=== PATIENT | female | born 1930 | race Caucasian/White ===

== ENCOUNTER 2018-06-03 14:08 | Day surgery (SDC) | payer OTHER ==
[2018-06-03 15:13] VITALS: PULSE 82; BMI 31.5
[2018-06-03 19:04] VITALS: BP 141/80; TEMP 98.8
== END 2018-06-03 22:17 | disposition home or self-care (01) ==
LOC: FINFUSION 14:08 → FM/S 14:22 → FINFUSION 22:17
PROVIDERS: ATTEND Internal Medicine Geriatric Medicine
PROC: 30233N1 Transfusion of Nonautologous Red Blood Cells into Peripheral Vein, Percutaneous Approach (ICD-10-PCS; principal; 2018-06-03)
DX: D64.9 Anemia, unspecified (principal)
CPT/HCPCS: 36430; 36511; 86850; 86900; 86901; 86922; P9038; P9058

== ENCOUNTER 2018-06-12 06:37 | Inpatient (IN) | payer OTHER ==
[2018-06-12] MEDS ORDERED: ALBUTEROL SO4 2.5/IPRATROPIUM 0.5 INH SOL 3 ML VIAL.NEB. NEB ONE ×5 (06:55→07:49)
[2018-06-12] MEDS ORDERED: FUROSEMIDE 40 MG/4 ML INJECTABLE VIAL IVPUSH ONE (07:15)
--- NOTE | 2018-06-12 07:39 | PDOC ---
History of Present Illness - General Chief Complaint: Shortness of Breath Stated Complaint: SOB Time Seen by Provider: 06/12/18 07:11 History Source: Patient, EMS Exam Limitations: No Limitations - History of Present Illness Initial Comments: 06/12/18 07:44 Francisco 87 YOF h/o CVA, Afib on ASA, HTN, Hypothyroidism, DM2 presenting with acute onset SOB at 5am. a/w clear productive cough last night, shortness of breath and lower leg swelling. h/o smoking x long time. endorses chronic lower extremity swelling, but usually increases in the morning. called EMS this morning, en route mildly hypertensive, placed on supp O2 with relief. no additional treatments. On review of records, prior echo in 2012 with normal systolic function, + elevated RVSP. 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 06/12/18 07:45 Past History - Past Medical History Allergies/Adverse Reactions: Allergies Allergy/AdvReac Type Severity Reaction Status Date / Time No Known Allergies Allergy Verified 06/12/18 06:38 Home Medications: Ambulatory Orders Aspirin 325 mg PO DAILY tablet 09/19/14 Levothyroxine [Synthroid -] 88 mcg PO DAILY 06/03/18 Anemia: No Asthma: No Cancer: No Cardiac Disorders: Yes (A FIB/) CVA: No COPD: No CHF: No Dementia: No Diabetes: Yes GI Disorders: No Disorders: No HTN: Yes Hypercholesterolemia: No Liver Disease: No Seizures: No Thyroid Disease: Yes - Surgical History Abdominal Surgery: No Appendectomy: No Cardiac Surgery: No Cholecystectomy: No Lung Surgery: No Neurologic Surgery: No Orthopedic Surgery: No - Suicide/Smoking/Psychosocial Hx Smoking History: Former smoker Have you smoked in the past 12 months: No Number of Cigarettes Smoked Daily: 0 Information on smoking cessation initiated: No Hx Alcohol Use: No Drug/Substance Use Hx: No Substance Use Type: None Hx Substance Use Treatment: No Review of Systems - Review of Systems Able to Perform ROS?: Yes Comments:: 06/12/18 07:44 GENERAL/CONSTITUTIONAL: No fever or chills. No weakness. no sweats. HEAD, EYES, EARS, NOSE AND THROAT: No change in vision or hearing. No ear pain or discharge. No sore throat or mouth pain. No difficulty swallowing.. No congestion. CARDIOVASCULAR: No chest pain or palpitations, syncope. +peripheral edema RESPIRATORY: +SOB, cough, wheezing. NO hemoptysis. GASTROINTESTINAL No nausea/vomiting. No diarrhea or constipation. No bloody stools. GENITOURINARY: No hematuria, dysuria, frequency, urgency or other changes. MUSCULOSKELETAL: No joint or muscle swelling or pain. No neck or back pain. SKIN: No rash or changes in skin color or lesions. NEUROLOGIC: No headache, vertigo, loss of consciousness, or change in strength/ sensation. ENDOCRINE: No increased thirst. No abnormal weight or appetite change or intolerance to heat/cold. HEMATOLOGIC/LYMPHATIC: +anemia. No easy bruising/bleeding, or history of blood clots. ALLERGIC/IMMUNOLOGIC: No allergies or rash All other systems reviewed and negative, or as documented in HPI. *Physical Exam - Vital Signs Last Vital Signs Temp Pulse Resp BP Pulse Ox 97.8 F 80 24 152/60 99 06/12/18 06:38 06/12/18 06:38 06/12/18 06:38 06/12/18 06:38 06/12/18 06:38 - Physical Exam Comments: 06/12/18 07:45 General: Well appearing, awake and alert, mild respiratory distress HEENT: NCAT, PERRL, EOMI, clear conjunctiva, anicteric, moist mucus membranes, clear oropharynx, no oral lesions.. Airway patent, normal phonation Neck: neck supple, FROM, no JV Lungs: +audible and expiratory wheezing, mild respiratory distress Heart: irregularly irregular, 2+ peripheral pulses throughout, 3+ peripheral edema Abdomen: soft, NTND, no peritoneal signs. Back: nontender, normal inspection and ROM MSK: +bilateral edema, BARRETT x4, ROM intact. No clubbing or cyanosis. normal bulk and tone. No calf tenderness. Neuro: alert, oriented appropriately; no focal neurologic deficits. Skin: warm and well perfused, cap refill <2 sec, pale in color (baseline). 06/12/18 07:45 Procedures - Bedside Ultrasound Remarks: 06/12/18 07:48 POCUS Thoracic exam Fire Watchman: Reema Attending physician: Reema Indications: Dyspnea Views: right anterior thorax, right lateral thorax, right posterior thorax, right base Left anterior thorax, left lateral thorax, left posterior thorax, left base Findings: [x] lung sliding Present bilaterally [x] pleural effusion present: moderate and bilaterally [x] No B lines Impression: Bilateral moderate pleural effusions POCUS Echo exam Fire Watchman: Reema Attending physician: Reema Indication: dyspnea Views: PSLA, PSS, A4, SX, IVC Findings: [x] NO pericardial effusion [x] Normal Ejection fraction on visual estimation [x] RV=LV chamber size [x] IVC size: plethoric (>2cm) with <50% collapsibility Impression: Normal ejection fraction, equal RV=LV chambers but good RV motion; plethoric IVC. ED Treatment Course - LABORATORY CBC & Chemistry Diagram: 06/12/18 07:25 06/12/18 06:50 - RADIOLOGY Radiology Studies Ordered: Category Date Time Status CHEST X-RAY PORTABLE* [RAD] Stat Radiology 06/12/18 06:41 Ordered - Medications Given in the ED: ED Medications Discontinued Medications Generic Name Dose Route Start Last Admin Trade Name Freq PRN Reason Stop Dose Admin Albuterol/Ipratropium 1 amp 06/12/18 06:55 06/12/18 07:02 Duoneb - NEB 06/12/18 06:56 1 amp ONCE ONE Administration Medical Decision Making - Medical Decision Making 06/12/18 07:46 87 YOF with comorbidities as above presenting with acute onset of SOB this morning. DDx SOB: ACS, PE, new onset CHF (systolic/diastolic/mixed), new onset COPD / undiagnosed, pulmonary edema, pleurisy, pneumonia, viral syndrome, acute bronchitis,. Pleural effusions. anemia, electrolyte/metabolic derangements. Plan: CBC, CMP, coags, D Dimer, VBG, CXR, ECG, POCUS echo and thoracic exam, Lasix, Duonebs and admit. based on clinical appearance and symptoms, suspecting PE, new onset CHF/ diastolic heart failure with normal EF, bronchitis/pneumonia, and new pleural effusions. will diureses, treat the wheeze with duonebs, but perhaps cardiac wheeze. pending dimer, if positive, CTA to r/o PE with elevated RVSP previously and equal chamber size. warrants admit, follows with Dr. Painting. 06/12/18 07:51 06/12/18 07:55 *DC/Admit/Observation/Transfer Diagnosis at time of Disposition: Pleural effusion, Respiratory distress - Discharge Dispostion Condition at time of disposition: Stable Decision to Admit order: Yes - Referrals Referrals: Everardo Painting MD [Primary Care Provider] - - Patient Instructions - Post Discharge Activity
[2018-06-12] MEDS ORDERED: FUROSEMIDE 40 MG/4 ML INJECTABLE VIAL ONE (07:49)
[2018-06-12 08:16] LABS: VENOUS PC02 52.8 mmHg (38-52); VENOUS PH 7.3 (7.32-7.42); VENOUS PO2 40.6 mmHg (28-48)
[2018-06-12 08:35] LABS: INR 1.27 (0.82-1.09); PROTHROMBIN TIME (PATIENT) 14.2 SEC (10.2-13.0)
[2018-06-12 08:35] LABS: HEMATOCRIT 24.8 % (32.4-45.2); HEMOGLOBIN 7.5 GM/dL (10.7-15.3); MCH 20.4 pg (25.7-33.7); MCHC 30.4 g/dl (32.0-36.0); PLATELET COUNT 285 K/MM3 (134-434); RDW 23.8 % (11.6-15.6); WHITE BLOOD COUNT 4.3 K/mm3 (4.0-10.0)
[2018-06-12 08:55] LABS: N-TERMINAL BNP 291.53 pg/ml (5-450)
[2018-06-12 08:57] LABS: ANION GAP 8 (8-16); BLOOD UREA NITROGEN 13 mg/dL (7-18); CALCIUM 8.5 mg/dL (8.5-10.1); CHLORIDE 108 mmol/L (98-107); CO2 28 mmol/L (21-32); CREATININE 0.5 mg/dL (0.55-1.02); GLUCOSE,RANDOM 152 mg/dL (74-106); POTASSIUM 4.1 mmol/L (3.5-5.1); SGOT/AST 19 U/L (15-37); SGPT/ALT 18 U/L (12-78); SODIUM 144 mmol/L (136-145); TOT PROT 6.6 g/dl (6.4-8.2)
[2018-06-12 08:58] LABS: ALK PHOS 101 U/L (45-117); BILIRUBIN,TOTAL 0.9 mg/dL (0.2-1.0)
--- NOTE | 2018-06-12 10:43 | HP ---
CHIEF COMPLAINT:shortness of breath and fatigue PCP: Dr. Painting Front End Drupal Developer: Dr Spicer HISTORY OF PRESENT ILLNESS: patient is a 87-year-old female with a past medical history of A. fib (no AC), CVA, breast cancer,hypothyroidism, iron deficiency anemia, and DM. Son (Asif) at bedside, reports ongoing weakness and shortness of breath for the past several months. The patient was evaluated by her primary care physician Dr. Painting on 06/01/2018, patient received 1 unit of packed red blood cells through the infusion center. Of note, patient and son both report she stopped taking her levothyroxine and Synthroid was restarted last week. Patient reports feeling increasingly more dyspneic within the past 24 hours with generalized weakness. Patient denies any chest pain or dizziness. ER course was notable for: (1)CTA of chest, pulmonary vascular congestion with cardiomegaly,no discrete pulmonary embolus, moderate to large right sided and small to moderate left- sided pleural effusion, with associated 5 basilar compressive atelectasis. (2)hemoglobin 7.5 (3)EKG, A. 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 Smoking:none Alcohol:none Drugs:none Family History: noncontributory to this admission Allergies No Known Allergies Allergy (Verified 06/12/18 06:38) HOME MEDICATIONS: Home Medications Medication Instructions Recorded Aspirin 325 mg PO DAILY tablet 09/19/14 Levothyroxine [Synthroid -] 88 mcg PO DAILY 06/03/18 REVIEW OF SYSTEMS CONSTITUTIONAL: Absent: fever, chills, diaphoresis, generalized weakness, malaise, loss of appetite, weight change HEENT: Absent: rhinorrhea, nasal congestion, throat pain, throat swelling, difficulty swallowing, mouth swelling, ear pain, eye pain, visual changes CARDIOVASCULAR: present:peripheral edema Absent: chest pain, syncope, palpitations, irregular heart rate, lightheadedness RESPIRATORY: present;shortness of breath, dyspnea with exertion, orthopnea, wheezing Absent: cough, stridor, hemoptysis GASTROINTESTINAL: Absent: abdominal pain, abdominal distension, nausea, vomiting, diarrhea, constipation, melena, hematochezia GENITOURINARY: Absent: dysuria, frequency, urgency, hesitancy, hematuria, flank pain, genital pain MUSCULOSKELETAL: Absent: myalgia, arthralgia, joint swelling, back pain, neck pain SKIN: Absent: rash, itching, pallor HEMATOLOGIC/IMMUNOLOGIC: Absent: easy bleeding, easy bruising, lymphadenopathy, frequent infections ENDOCRINE: Absent: unexplained weight gain, unexplained weight loss, heat intolerance, cold intolerance NEUROLOGIC: Absent: headache, focal weakness or paresthesias, dizziness, unsteady gait, seizure, mental status changes, bladder or bowel incontinence PSYCHIATRIC: Absent: anxiety, depression, suicidal or homicidal ideation, hallucinations. PHYSICAL EXAMINATION Vital Signs - 24 hr 06/12/18 06/12/18 06/12/18 06:38 07:15 08:48 Temperature 97.8 F Pulse Rate 80 77 Pulse Rate [ 79 Left] Respiratory 24 18 Rate Blood Pressure 152/60 Blood Pressure 136/57 [Right Arm] O2 Sat by Pulse 99 100 96 Oximetry (%) 06/12/18 10:00 Temperature Pulse Rate Pulse Rate [ 75 Left] Respiratory 18 Rate Blood Pressure Blood Pressure 112/52 [Right Arm] O2 Sat by Pulse 98 Oximetry (%) GENERAL: Awake, alert, and fully oriented, in no acute distress. HEAD: Normal with no signs of trauma. EYES: Pupils equal, round and reactive to light, extraocular movements intact, sclera anicteric, conjunctiva clear. No lid lag. EARS, NOSE, THROAT: Ears normal, nares patent, oropharynx clear without exudates. Moist mucous membranes. NECK: Normal range of motion, supple without lymphadenopathy, JVD, or masses. LUNGS: Breath sounds equal, course rhonchi to apexes, slight wheeze with crackles to bilateral bases, No accessory muscle use. HEART: irregular rate and rhythm, normal S1 and S2, 3/6 systolic murmur, no rub or gallop. ABDOMEN: Soft, nontender, not distended, normoactive bowel sounds, no guarding, no rebound, no masses. No hepatomegaly or splenomegaly. MUSCULOSKELETAL: Normal range of motion at all joints. No bony deformities or tenderness. No CVA tenderness. UPPER EXTREMITIES: 2+ pulses, warm, well-perfused. No cyanosis. No clubbing. No peripheral edema. LOWER EXTREMITIES: 2+ pulses, warm, well-perfused. No calf tenderness. + 3 bilateral pitting edema to LE extremity NEUROLOGICAL: Cranial nerves II-XII intact. Normal speech. Normal gait. PSYCHIATRIC: Cooperative. Good eye contact. Appropriate mood and affect. SKIN: Warm, dry, normal turgor, no rashes or lesions noted, normal capillary refill. Laboratory Results - last 24 hr 06/12/18 06/12/18 06/12/18 06:50 07:25 07:47 WBC 4.3 RBC 3.70 Hgb 7.5 L Hct 24.8 L D MCV 67.0 L MCH 20.4 L D MCHC 30.4 L RDW 23.8 H Plt Count 285 D MPV 9.0 Absolute Neuts (auto) 2.8 Neutrophils % No Result Required. Lymphocytes % No Result Required. Nucleated RBC % 0 PT with INR INR PTT (Actin FS) D-Dimer VBG pH 7.30 L POC VBG pCO2 52.8 H POC VBG pO2 40.6 Mixed VBG HCO3 27.2 H Sodium 144 Potassium 4.1 Chloride 108 H Carbon Dioxide 28 Anion Gap 8 BUN 13 Creatinine 0.5 L Creat Clearance w eGFR > 60 Random Glucose 152 H Calcium 8.5 Total Bilirubin 0.9 AST 19 ALT 18 Alkaline Phosphatase 101 Troponin I B-Natriuretic Peptide Total Protein 6.6 Albumin 3.0 L TSH 06/12/18 06/12/18 06/12/18 07:47 07:47 07:47 WBC RBC Hgb Hct MCV MCH MCHC RDW Plt Count MPV Absolute Neuts (auto) Neutrophils % Lymphocytes % Nucleated RBC % PT with INR INR PTT (Actin FS) D-Dimer 805 H VBG pH POC VBG pCO2 POC VBG pO2 Mixed VBG HCO3 Sodium Potassium Chloride Carbon Dioxide Anion Gap BUN Creatinine Creat Clearance w eGFR Random Glucose Calcium Total Bilirubin AST ALT Alkaline Phosphatase Troponin I < 0.02 B-Natriuretic Peptide 291.53 Cancelled Total Protein Albumin TSH 44.30 H Cancelled 06/12/18 06/12/18 06/12/18 07:47 07:47 07:47 WBC RBC Hgb Hct MCV MCH MCHC RDW Plt Count MPV Absolute Neuts (auto) Neutrophils % Lymphocytes % Nucleated RBC % PT with INR 14.2 H INR 1.27 H PTT (Actin FS) 28.8 D-Dimer VBG pH POC VBG pCO2 POC VBG pO2 Mixed VBG HCO3 Sodium Potassium Chloride Carbon Dioxide Anion Gap BUN Creatinine Creat Clearance w eGFR Random Glucose Calcium Total Bilirubin AST ALT Alkaline Phosphatase Troponin I Cancelled B-Natriuretic Peptide Total Protein Albumin TSH ASSESSMENT/PLAN: 1) Cardiovascular afib - rate controlled, continues cardiac monitoring, continue atenolol - no AC patient reports she has declined AC in the past weeks. takes full dose aspirin congestive heart failure - cT of chest reviewed, significant pulmonary vascular congestion noted, will start Lasix 40 mg IV twice a day - pending echo - appreciate cardiology input 2) Heme/onc microcytic anemia - Hemoglobin 7.5 last blood transfusion 06/03/2018, pending iron studies - strict monitoring of hemoglobin 3)endo hypothyroidism - continue levothyroxine patient admits to not taking her Synthroid for several months DM - fingersticks achs with regular insulin coverage f/e/n - diabetic diet - replete electrolytes prn ppx - hold chemical ac secondary to anemia - mechanical ac only dispo: pt requires inpatient admission Visit type - Emergency Visit Emergency Visit: Yes ED Registration Date: 06/12/18 Care time: The patient presented to the Emergency Department on the above date and was hospitalized for further evaluation of their emergent condition. - New Patient This patient is new to me today: Yes Date on this admission: 06/13/18 - Critical Care Critical Care patient: No Hospitalist Screening - Colonoscopy Questionnaire Colonoscopy Questionnaire: Colonoscopy Questionnaire - Patient: 50 - 75 years old and never had a screening colonoscopy: No History of colon or rectal polyps, or CA: No History of IBD, Crohn's disease or UC: No History of abdominal radiation therapy as a child: No - Relative: 1 with colon or rectal CA, or polyps at age 60 or younger: No Colon or rectal CA diagnosed at age 45 or younger: No Multiple relatives with colon or rectal CA: No - Outcome: Screening Result: Negative Screen
[2018-06-12] MEDS: ATENOLOL 50 MG TABLET (FP) PO SCH ×2 (11:34→21:09)
[2018-06-12 12:26] LABS: PLATELET ESTIMATE ADEQUATE; ROULEAU 1+
[2018-06-12 12:27] LABS: ANISOCYTOSIS 2+
[2018-06-12] MEDS ORDERED: ALBUTEROL SO4 2.5/IPRATROPIUM 0.5 INH SOL 3 ML VIAL.NEB. NEB PRN (12:42)
[2018-06-12] MEDS: MINERAL OIL/PETROLAT/WATER TOPICAL CREAM 454 GM JAR TP SCH ×2 (14:00→21:08)
[2018-06-12] MEDS: FUROSEMIDE 40 MG/4 ML INJECTABLE VIAL IVPUSH SCH (14:00)
[2018-06-12] MEDS: FAMOTIDINE 20 MG TABLET PO SCH ×2 (14:00→21:05)
--- NOTE | 2018-06-12 15:29 | ECHO ---
Name: JEN THOMASON Study Date: 06/12/2018 01:46 PM Age: 87 yrs Reason For Study: DYSPNEA UPON EXERTION Height: 62 in Weight: 157 lb BSA IVSd 1.3cm Ao root diam2.8cm LVIDd 3.9cm LA dimension 3.7cm LVIDs 2.8cm LVPWd 1.3cm EDV(Ozzy) 64.8ml ESV(Ozzy) 28.8ml MV E max kyree 142.2cm/sec MR max kyree 395. 7cm/sec MR max PG 62.6 mmHg PI end-d vel73.3cm/sec
[2018-06-12] MEDS ORDERED: INSULIN (NOVOLOG) ASPART 100 UNITS/ML 10ML VIAL ONE (17:36)
[2018-06-12] MEDS: INSULIN SLIDING SCALE (NOVOLOG) 1 VIAL SQ SCH ×2 (17:38→21:25)
--- NOTE | 2018-06-12 20:57 | CON.CARD ---
Consult Consult Specialty:: Carddiology consult - coverage dr. Ruvalcaba Reason for Consultation:: chf - History of Present Illness History of Present Illness: patient is a 87-year-old female with a past medical history of A. fib (no AC), CVA, breast cancer,hypothyroidism, iron deficiency anemia, and DM. Son (Asif) at bedside, reports ongoing weakness and shortness of breath for the past several months. The patient was evaluated by her primary care physician Dr. Painting on 06/01/2018, patient received 1 unit of packed red blood cells through the infusion center. Of note, patient and son both report she stopped taking her levothyroxine and Synthroid was restarted last week. Patient reports feeling increasingly more dyspneic within the past 24 hours with generalized weakness. Patient denies any chest pain or dizziness. ER course was notable for: (1)CTA of chest, pulmonary vascular congestion with cardiomegaly,no discrete pulmonary embolus, moderate to large right sided and small to moderate left- sided pleural effusion, with associated 5 basilar compressive atelectasis. (2)hemoglobin 7.5 (3)EKG, A. fib, nonspecific ST and t wave abnormality - History Source History Provided By: Patient, Medical Record - Past Medical History Cardio/Vascular: Yes: AFIB, CHF, HTN Endocrine: Yes: Diabetes Mellitus, Hypothyroidism - Alcohol/Substance Use Hx Alcohol Use: No - Smoking History Smoking history: Former smoker Have you smoked in the past 12 months: No Aproximately how many cigarettes per day: 0 If you are a former smoker, when did you quit?: 40 YEARS AGO Home Medications - Allergies Allergies/Adverse Reactions: Allergies Allergy/AdvReac Type Severity Reaction Status Date / Time No Known Allergies Allergy Verified 06/12/18 06:38 - Home Medications Home Medications: Ambulatory Orders Aspirin 325 mg PO DAILY tablet 09/19/14 Levothyroxine [Synthroid -] 88 mcg PO DAILY 06/03/18 Review of Systems - Review of Systems Constitutional: reports: Weakness Eyes: reports: No Symptoms HENT: reports: No Symptoms Neck: reports: No Symptoms Cardiovascular: reports: Edema, Shortness of Breath Gastrointestinal: reports: No Symptoms Genitourinary: reports: No Symptoms Breasts: reports: No Symptoms Reported Musculoskeletal: reports: No Symptoms Integumentary: reports: No Symptoms Neurological: reports: No Symptoms Endocrine: reports: No Symptoms Hematology/Lymphatic: reports: No Symptoms Psychiatric: reports: No Symptoms Vital Signs: Vital Signs Temperature 97.9 F 06/12/18 18:35 Pulse Rate 55 L 06/12/18 18:35 Respiratory Rate 20 06/12/18 18:35 Blood Pressure 88/36 06/12/18 18:35 O2 Sat by Pulse Oximetry (%) 100 06/12/18 13:18 Constitutional: Yes: Well Nourished, No Distress, Calm Eyes: Yes: WNL, Conjunctiva Clear, EOM Intact HENT: Yes: WNL, Atraumatic, Normocephalic Neck: Yes: WNL, Supple, Trachea Midline Respiratory: Yes: Diminished, Dullness Gastrointestinal: Yes: WNL, Normal Bowel Sounds Renal/: Yes: WNL Cardiovascular: Yes: Pulse Irregular JVD: Yes Heart Sounds: Yes: S1, S2 Murmur: Yes: Systolic Murmur Musculoskeletal: Yes: WNL Extremities: Yes: WNL Edema: Yes Edema: LLE: 3+, RLE: 3+ Integumentary: Yes: WNL Neurological: Yes: WNL, Alert, Oriented ...Motor Strength: WNL Psychiatric: Yes: WNL, Alert, Oriented - Other Data Labs, Other Data: CBC, BMP 06/12/18 07:25 06/12/18 06:50 INR, PTT INR 1.27 (0.82-1.09) H 06/12/18 07:47 Troponin, BNP 06/12/18 06/12/18 06/12/18 07:47 07:47 07:47 Troponin I < 0.02 Cancelled B-Natriuretic Peptide 291.53 Cancelled Troponin, BNP 06/12/18 06/12/18 06/12/18 07:47 07:47 07:47 Troponin I < 0.02 Cancelled B-Natriuretic Peptide 291.53 Cancelled Imaging - Results Chest X-ray: Image Reviewed (b pleural effusion) EKG: Image Reviewed (af rep abn) Problem List - Problems (1) Pleural effusion Code(s): J90 - PLEURAL EFFUSION, NOT ELSEWHERE CLASSIFIED Assessment/Plan chf diastolic acute decompensated dm af hypothyroidism pleural effusion anemia plan iv lasix rater controll -restart home meds consider AC anemia w/u pleural efussion w/u r/o malignancy coverage for dr. Ruvalcaba
[2018-06-13] MEDS: FUROSEMIDE 40 MG/4 ML INJECTABLE VIAL IVPUSH SCH ×2 (06:30→14:49)
[2018-06-13] MEDS: INSULIN SLIDING SCALE (NOVOLOG) 1 VIAL SQ SCH ×4 (06:34→22:24)
[2018-06-13] MEDS: LEVOTHYROXINE NA 88 MCG TABLET (FP) PO SCH (06:34)
--- NOTE | 2018-06-13 08:03 | PN ---
Physical Exam: SUBJECTIVE: Patient seen and examined, reports feeling tired with shortness of breath and decreased appetite OBJECTIVE: Vital Signs Period Temp Pulse Resp BP Sys/De La O Pulse Ox Last 24 Hr 97.3 F-98.3 F 45-90 18-20 87-136/34-57 95-100 GENERAL: The patient is awake, alert, and fully oriented, in no acute distress. HEAD: Normal with no signs of trauma. EYES: PERRL, extraocular movements intact, sclera anicteric, conjunctiva clear. No ptosis. ENT: Ears normal, nares patent, oropharynx clear without exudates, moist mucous membranes. NECK: Trachea midline, full range of motion, supple. LUNGS: Breath sounds equal, clear to auscultation bilaterally to apexes, crackles to bases, no accessory muscle use. HEART: irregular rate and rhythm, S1, S2 without murmur, rub or gallop. ABDOMEN: Soft, nontender, nondistended, normoactive bowel sounds, no guarding, no rebound, no hepatosplenomegaly, no masses. EXTREMITIES: 2+ pulses, warm, well-perfused, +2 pitting edema bilaterally NEUROLOGICAL: Cranial nerves II through XII grossly intact. Normal speech, gait not observed. PSYCH: Normal mood, normal affect. SKIN: Warm, dry, normal turgor, no rashes or lesions noted Laboratory Results - last 24 hr CBC WBC 5.0 K/mm3 (4.0-10.8) 06/13/18 08:00 RBC 3.46 M/mm3 (3.60-5.2) L 06/13/18 08:00 Hgb 7.0 GM/dl (10.7-15.3) L 06/13/18 08:00 Hct 22.9 % (32.4-45.2) L 06/13/18 08:00 MCV 66.2 fl (80-96) L 06/13/18 08:00 MCH 20.1 pg (25.7-33.7) L 06/13/18 08:00 MCHC 30.4 g/dl (32.0-36.0) L 06/13/18 08:00 RDW 22.2 % (11.6-15.6) H D 06/13/18 08:00 Plt Count 279 K/MM3 (134-434) 06/13/18 08:00 MPV 8.3 fl (7.5-11.1) 06/13/18 08:00 Absolute Neuts (auto) 3.3 # 06/13/18 08:00 Total Counted 100 06/12/18 07:25 Neutrophils % 64.0 % (42.8-82.8) 06/13/18 08:00 Neutrophils % (Manual) 73.0 % (42.8-82.8) 06/12/18 07:25 Lymphocytes % 15.1 % (8-40) 06/13/18 08:00 Lymphocytes % (Manual) 16.0 % (8-40) 06/12/18 07:25 Monocytes % 14.9 % (3.8-10.2) H 06/13/18 08:00 Monocytes % (Manual) 9 % (3.8-10.2) 06/12/18 07:25 Eosinophils % 5.0 % (0-4.5) H 06/13/18 08:00 Eosinophils % (Manual) 1.0 % (0-4.5) 06/12/18 07:25 Basophils % 1.0 % (0-2.0) 06/13/18 08:00 Nucleated RBC % 0 % (0-0) 06/12/18 07:25 Hypochromia 2+ 06/12/18 07:25 Platelet Estimate Adequate 06/12/18 07:25 Anisocytosis 2+ 06/12/18 07:25 Rouleaux 1+ 06/12/18 07:25 Retic Count 1.21 % (0.5-1.5) 06/12/18 07:47 CMP Sodium 136 mmol/L (136-145) 06/13/18 08:00 Potassium 3.5 mmol/L (3.5-5.1) 06/13/18 08:00 Chloride 104 mmol/L (98-107) 06/13/18 08:00 Carbon Dioxide 29 mmol/L (22-28) H 06/13/18 08:00 Anion Gap 3 (8-16) L 06/13/18 08:00 BUN 14 mg/dl (7-18) 06/13/18 08:00 Creatinine 0.6 mg/dl (0.6-1.3) 06/13/18 08:00 Creat Clearance w eGFR > 60 (>60) 06/13/18 08:00 POC Glucometer 159 UNITS (80-120) 06/13/18 11:41 Random Glucose 104 mg/dl (74-106) D 06/13/18 08:00 Calcium 7.8 mg/dl (8.4-10.2) L 06/13/18 08:00 Phosphorus 4.0 mg/dl (2.5-4.6) 06/13/18 08:00 Magnesium 1.7 mg/dL (1.8-2.4) L 06/13/18 08:00 Iron 14 ug/dL (27-139) L 06/12/18 07:37 TIBC 366 ug/dL (250-450) 06/12/18 07:37 Iron Saturation 4 % (15-55) L 06/12/18 07:37 Total Bilirubin 0.9 mg/dL (0.2-1.0) 06/12/18 06:50 AST 19 U/L (15-37) 06/12/18 06:50 ALT 18 U/L (12-78) 06/12/18 06:50 Alkaline Phosphatase 101 U/L (45-117) 06/12/18 06:50 Troponin I < 0.02 ng/ml (0.00-0.05) 06/12/18 07:47 B-Natriuretic Peptide 291.53 pg/ml (5-450) 06/12/18 07:47 Total Protein 6.6 g/dl (6.4-8.2) 06/12/18 06:50 Albumin 3.0 g/dl (3.4-5.0) L 06/12/18 06:50 TSH 44.30 uIU/ml (0.358-3.74) H 06/12/18 07:47 Active Medications Generic Name Dose Route Start Last Admin Trade Name Freq PRN Reason Stop Dose Admin Albuterol/Ipratropium 1 amp 06/12/18 12:42 Duoneb - NEB Q6H PRN SHORTNESS OF BREATH Atenolol 50 mg 06/13/18 10:00 Tenormin - PO DAILY REED Diltiazem HCl 180 mg 06/12/18 21:43 Cardizem Cd - PO DAILY REED Famotidine 20 mg 06/12/18 13:15 06/12/18 21:05 Pepcid - PO 20 mg BID REED Administration Furosemide 40 mg 06/12/18 14:00 06/13/18 06:30 Lasix Injection - IVPUSH Not Given BID@0600,1400 [facility] Insulin Aspart 1 vial 06/12/18 16:30 06/13/18 06:34 Novolog Vial Sliding Scale - SQ Not Given ACHS [facility] Protocol Levothyroxine Sodium 88 mcg 06/13/18 07:00 06/13/18 06:34 Synthroid - PO 88 mcg DAILY@0700 REED Administration Multi-Ingredient Lotion 1 applic 06/12/18 13:15 06/12/18 21:08 Eucerin (Large Jar) - TP 1 applic BID REED Administration ASSESSMENT/PLAN: 1) Cardiovascular afib - rate controlled, continues cardiac monitoring, continue atenolol n Cardizem - no AC patient reports she has declined AC in the past, will defer AC secondary to symptomatic anemia. diastolic congestive heart failure - cT of chest reviewed, significant pulmonary vascular congestion noted, will start Lasix 40 mg IV twice a day - echo LV WNL pleural effusion severe TR RVSP elevated PVR - cardiology consulted and following 2) Heme/onc microcytic anemia - Hemoglobin 7.0, patient asymptomatic will order 2 units of packed red blood cells with Lasix, pending iron studies - strict monitoring of hemoglobin 3)endo hypothyroidism - continue levothyroxine patient admits to not taking her Synthroid for several months DM - fingersticks achs with regular insulin coverage f/e/n - diabetic diet - replete electrolytes prn ppx - hold chemical ac secondary to anemia - mechanical ac only dispo: pt requires inpatient admission Visit type - Emergency Visit Emergency Visit: Yes ED Registration Date: 06/12/18 Care time: The patient presented to the Emergency Department on the above date and was hospitalized for further evaluation of their emergent condition. - New Patient This patient is new to me today: No - Critical Care Critical Care patient: No - Discharge Referral Referred to [facility] Med [facility].C[facility] No
[2018-06-13 08:09] LABS: SERUM IRON SATURATION 4 % (15-55); TOTAL IRON BINDING CAPACITY 366 ug/dL (250-450); UIBC 352 ug/dL (118-369)
[2018-06-13 08:22] LABS: ANION GAP 3 (8-16); BLOOD UREA NITROGEN 14 mg/dl (7-18); CALCIUM 7.8 mg/dl (8.4-10.2); CHLORIDE 104 mmol/L (98-107); CO2 29 mmol/L (22-28); CREATININE 0.6 mg/dl (0.6-1.3); GLUCOSE,RANDOM 104 mg/dl (74-106); MAGNESIUM 1.7 mg/dL (1.8-2.4); POTASSIUM 3.5 mmol/L (3.5-5.1); SODIUM 136 mmol/L (136-145)
[2018-06-13 08:33] LABS: HEMATOCRIT 22.9 % (32.4-45.2); LYMPH % 15.1 % (8-40); MCH 20.1 pg (25.7-33.7); MCHC 30.4 g/dl (32.0-36.0); MEAN CELL VOLUME 66.2 fl (80-96); MEAN PLT VOLUME 8.3 fl (7.5-11.1); MONO % 14.9 % (3.8-10.2); PLATELET COUNT 279 K/MM3 (134-434); RBC 3.46 M/mm3 (3.60-5.2); RDW 22.2 % (11.6-15.6)
[2018-06-13] MEDS ORDERED: MAGNESIUM SULFATE 2 GM in SODIUM CHLORIDE 100 ML IVPB ONE (08:33)
[2018-06-13] MEDS ORDERED: POTASSIUM CHLORIDE TABS 20 MEQ TABLET.ER (FP) PO ONE (09:00)
[2018-06-13] MEDS ORDERED: MAGNESIUM SULFATE IN WATER 2 GM/50 ML IVPB IVPB ONE (09:00)
[2018-06-13] MEDS: MINERAL OIL/PETROLAT/WATER TOPICAL CREAM 454 GM JAR TP SCH ×2 (09:35→22:24)
[2018-06-13] MEDS: FAMOTIDINE 20 MG TABLET PO SCH ×2 (09:35→21:47)
[2018-06-13] MEDS: ATENOLOL 50 MG TABLET (FP) PO SCH (09:35)
[2018-06-13] MEDS ORDERED: INSULIN (NOVOLOG) ASPART 100 UNITS/ML 10ML VIAL ONE ×2 (11:45→16:46)
[2018-06-13 12:51] LABS: ADD RBC MORPHOLOGY YES
--- NOTE | 2018-06-13 13:57 | EKG ---
Test Reason : Blood Pressure : / mmHG Vent. Rate : 079 BPM Atrial Rate : 048 BPM P-R Int : 000 ms QRS Dur : 086 ms QT Int : 402 ms P-R-T Axes : 000 045 056 degrees QTc Int : 460 ms ATRIAL FIBRILLATION NONSPECIFIC ST AND T WAVE ABNORMALITY ABNORMAL ECG Confirmed by Heath Hernandez MD ([id number]) on 06/13/2018 1:56:42 PM Referred By: Confirmed By:Heath Hernandez MD
[2018-06-14] MEDS: FUROSEMIDE 40 MG/4 ML INJECTABLE VIAL IVPUSH SCH ×3 (04:09→14:39)
[2018-06-14] MEDS ORDERED: INSULIN (NOVOLOG) ASPART 100 UNITS/ML 10ML VIAL ONE (06:58)
[2018-06-14] MEDS: LEVOTHYROXINE NA 88 MCG TABLET (FP) PO SCH (06:59)
[2018-06-14] MEDS: INSULIN SLIDING SCALE (NOVOLOG) 1 VIAL SQ SCH ×4 (06:59→21:54)
[2018-06-14] MEDS ORDERED: ACETAMINOPHEN 1000 MG/100 ML VIAL (NON FORMULARY) IVPB ONE (07:48)
[2018-06-14] MEDS ORDERED: PIPERACILLIN/TAZOB 4.5 GM 4.5 GM in DEXTROSE 5%-WATER 100 ML IVPB ONE (07:48)
[2018-06-14] MEDS ORDERED: VANCOMYCIN 1,250 MG in DEXTROSE 5%-WATER - 250 ML IVPB ONE (07:49)
--- NOTE | 2018-06-14 07:54 | ED.PROV ---
Physicial Exam I saw and examined the patient. - Vital Signs Last Vital Signs Temp Pulse Resp BP Pulse Ox 100.9 F H 96 H 22 139/58 93 L 06/14/18 07:50 06/14/18 07:50 06/14/18 07:50 06/14/18 07:50 06/14/18 03:58 - Physical Exam Reason for Response: 06/14/18 07:51 AMS General Appearance: Yes: Mild Distress, Thin HEENT: positive: EOMI, PABLO, Other (moaning, minimally following commands) Neck: positive: Supple Respiratory/Chest: positive: Decreased Breath Sounds, Crackles Cardiovascular: positive: Irregularly Irregular, Irregular, Other (normal rate) Vascular Pulses: Carotid (R): 2+, Carotid (L): 2+, Dorsalis-Pedis (R): 2+, Doralis-Pedis (L): 2+ Gastrointestinal/Abdominal: positive: Soft. negative: Tenderness Musculoskeletal: positive: Other (VITAL x4) Extremity: positive: Normal Capillary Refill Integumentary: positive: Warm, Moist, Other (baseline pallor, but very warm to touch) Neurologic: positive: Other (awake, disoriented, moaning, groans to pain stimulus; VITAL x4, no focal neuro deficits. ) Heart Score/ECG Review - ECG Impressions Comment:: 06/14/18 07:53 Atrial fibrillation with rate 101, normal intervals, no ischemic changes or ST segment derangements Critical Care Time/[facility] Note - Medical Decision Making Note: 06/14/18 07:53 Francisco 87 YOF h/o CVA, Afib on ASA, HTN, Hypothyroidism, DM2, anemia, CHF and new pleural effusions, admitted for pl effusions, diastolic heart failure and anemia eval. called to floor at 740AM for AMS - evaluated pt at bedside, as I had admitted her previously. received her IV lasix overnight, 2 units pRBC for acute on chronic anemia, finished at 1am. made BM - loose nonbloody stools at 4am. exam as documented, nonfocal, m oaning, vital x4, moaning to pain stimuli. fingerstick normal 170s. low suspicion for CVA with global AMS and fever; pulm exam with crackles at bases, no respiratory distress; EKG Afib w/o RVR, nonischemic, nonspecific ST T wave abnormalities as previously also found to febrile 100.9, so most likely source of AMS/delirium. IV tylenol, hold septic fluid boluses due to risk of fluid overload. CT head noncon, CXR, IV vancomycin 1.25g weight based dosing, and zosyn 4.5g IV for empiric coverage of respiratory infection/pna/aspiration. blood cultures, UA and urine cx. informed staff cytotechnologist at bedside, may call ED for further eval or questions or changes in clinical condition when day team arrives. 06/14/18 07:55
--- NOTE | 2018-06-14 08:07 | PN ---
Physical Exam: SUBJECTIVE: Patient seen and examined,contacted by primary RN Douglas, patient lethargic MAXIMUM TEMPERATURE 100.9. OBJECTIVE:patient is a 87-year-old female with a past medical history of A. fib (no AC), CVA, breast cancer,hypothyroidism, iron deficiency anemia, and DM. patient was observed in the emergency department to telemetry for acute congestive heart failure Vital Signs Period Temp Pulse Resp BP Sys/De La O Pulse Ox Last 24 Hr 97.6 F-100.9 F 78-103 17-22 97-162/44-67 93-96 GENERAL: lethargic, opens eyes to name, follows commands, fully oriented. HEAD: Normal with no signs of trauma. EYES: PERRL, extraocular movements intact, sclera anicteric, conjunctiva clear. No ptosis. ENT: Ears normal, nares patent, oropharynx clear without exudates, moist mucous membranes. NECK: Trachea midline, full range of motion, supple. LUNGS: Breath sounds equal, RR 24, coarse rhonchi to apexes bibasalar crackles, + accessory muscle use. HEART: irRegular rate and rhythm, S1, S2 without murmur, rub or gallop. ABDOMEN: Soft, nontender, nondistended, normoactive bowel sounds, no guarding, no rebound, no hepatosplenomegaly, no masses. EXTREMITIES: 2+ pulses, warm, well-perfused, + 1 bilateral pitting edema NEUROLOGICAL: Cranial nerves II through XII grossly intact. Normal speech, gait not observed. PSYCH: Normal mood, normal affect. SKIN: Warm, dry, normal turgor, no rashes or lesions noted Laboratory Results - last 24 hr CBC WBC 6.9 K/mm3 (4.0-10.8) 06/14/18 07:30 RBC 4.14 M/mm3 (3.60-5.2) 06/14/18 07:30 Hgb 9.6 GM/dl (10.7-15.3) L 06/14/18 07:30 Hct 29.4 % (32.4-45.2) L D 06/14/18 07:30 MCV 71.0 fl (80-96) L 06/14/18 07:30 MCH 23.0 pg (25.7-33.7) L 06/14/18 07:30 MCHC 32.5 g/dl (32.0-36.0) 06/14/18 07:30 RDW 24.4 % (11.6-15.6) H 06/14/18 07:30 Plt Count 274 K/MM3 (134-434) 06/14/18 07:30 MPV 9.4 fl (7.5-11.1) 06/14/18 07:30 Absolute Neuts (auto) 5.6 # 06/14/18 07:30 Total Counted 100 06/12/18 07:25 Neutrophils % 79.5 % (42.8-82.8) 06/14/18 07:30 Neutrophils % (Manual) 73.0 % (42.8-82.8) 06/12/18 07:25 Lymphocytes % 7.3 % (8-40) L 06/14/18 07:30 Lymphocytes % (Manual) 16.0 % (8-40) 06/12/18 07:25 Monocytes % 11.9 % (3.8-10.2) H 06/14/18 07:30 Monocytes % (Manual) 9 % (3.8-10.2) 06/12/18 07:25 Eosinophils % 0.6 % (0-4.5) 06/14/18 07:30 Eosinophils % (Manual) 1.0 % (0-4.5) 06/12/18 07:25 Basophils % 0.7 % (0-2.0) 06/14/18 07:30 Nucleated RBC % 0 % (0-0) 06/12/18 07:25 Hypochromia 2+ 06/12/18 07:25 Platelet Estimate Adequate 06/12/18 07:25 Anisocytosis 2+ 06/12/18 07:25 Rouleaux 1+ 06/12/18 07:25 Retic Count 1.21 % (0.5-1.5) 06/12/18 07:47 CMP Sodium 135 mmol/L (136-145) L 06/14/18 07:30 Potassium 3.3 mmol/L (3.5-5.1) L 06/14/18 07:30 Chloride 93 mmol/L (98-107) L D 06/14/18 07:30 Carbon Dioxide 35 mmol/L (22-28) H D 06/14/18 07:30 Anion Gap 7 (8-16) L 06/14/18 07:30 BUN 11 mg/dl (7-18) 06/14/18 07:30 Creatinine < 0.6 mg/dl (0.6-1.3) L 06/14/18 07:30 Creat Clearance w eGFR > 60 (>60) 06/14/18 07:30 POC Glucometer 152 UNITS (80-120) 06/14/18 07:39 Random Glucose 158 mg/dl (74-106) H D 06/14/18 07:30 Lactic Acid 1.9 mmol/L (0.0-2.0) 06/14/18 08:30 Calcium 8.0 mg/dl (8.4-10.2) L 06/14/18 07:30 Phosphorus 3.8 mg/dl (2.5-4.6) 06/14/18 07:30 Magnesium 1.8 mg/dL (1.8-2.4) 06/14/18 07:30 Iron 14 ug/dL (27-139) L 06/13/18 07:37 TIBC 366 ug/dL (250-450) 06/12/18 07:37 Iron Saturation 4 % (15-55) L 06/12/18 07:37 Total Bilirubin 1.6 mg/dl (0.2-1.0) H 06/14/18 07:30 AST 18 U/L (10-42) 06/14/18 07:30 ALT 13 U/L (10-40) 06/14/18 07:30 Alkaline Phosphatase 77 U/L (32-92) 06/14/18 07:30 Troponin I < 0.02 ng/ml (0.00-0.05) 06/12/18 07:47 B-Natriuretic Peptide 291.53 pg/ml (5-450) 06/12/18 07:47 Total Protein 6.0 g/dl (6.4-8.3) L 06/14/18 07:30 Albumin 2.9 g/dl (3.5-5.0) L 06/14/18 07:30 TSH 44.30 uIU/ml (0.358-3.74) H 06/12/18 07:47 Laboratory Tests 06/14/18 10:30 Urine Color Yellow Urine Appearance Clear Urine pH 5.5 Ur Specific [place] <= 1.005 Urine Protein Negative Urine Glucose (UA) Negative Urine Ketones Negative Urine Blood Negative Urine Nitrite Positive Urine Bilirubin Negative Urine Urobilinogen 0.2 Ur Leukocyte Esterase Negative Laboratory Tests 06/14/18 10:21 ABG pH 7.40 ABG pCO2 at Pt Temp 61.0 H* ABG pO2 at Pt Temp 111.0 H ABG HCO3 36.4 H ABG O2 Sat (Measured) 98.2 ABG O2 Content 12.3 L Active Medications Generic Name Dose Route Start Last Admin Trade Name Freq PRN Reason Stop Dose Admin Albuterol/Ipratropium 1 amp 06/12/18 12:42 06/14/18 04:01 Duoneb - NEB 1 amp Q6H PRN Administration SHORTNESS OF BREATH Atenolol 50 mg 06/13/18 10:00 06/13/18 09:35 Tenormin - PO 50 mg DAILY REED Administration Diltiazem HCl 180 mg 06/12/18 21:43 06/13/18 09:35 Cardizem Cd - PO 180 mg DAILY REED Administration Famotidine 20 mg 06/12/18 13:15 06/13/18 21:47 Pepcid - PO 20 mg BID REED Administration Furosemide 40 mg 06/12/18 14:00 06/14/18 06:59 Lasix Injection - IVPUSH Not Given BID@0600,1400 REED Given at 4 AM Piperacillin Sod/Tazobactam 100 mls @ 200 mls/hr 06/14/18 07:48 Sod 4.5 gm/ Dextrose IVPB 06/14/18 08:17 ONCE ONE Protocol Vancomycin HCl 1,250 mg/ 250 mls @ 250 mls/2 hr 06/14/18 07:49 Dextrose IVPB 06/14/18 09:48 ONCE ONE Protocol Insulin Aspart 1 vial 06/12/18 16:30 06/14/18 06:59 Novolog Vial Sliding Scale - SQ 2 units ACHS REED Administration Protocol Levothyroxine Sodium 88 mcg 06/13/18 07:00 06/14/18 06:59 Synthroid - PO 88 mcg DAILY@0700 REED Administration Multi-Ingredient Lotion 1 applic 06/12/18 13:15 06/13/18 22:24 Eucerin (Large Jar) - TP 1 applic BID REED Administration IMAGING cta of chest: no CT evidence of pulmonary embolism, pulmonary vascular congestion with cardiomegaly, bilateral pleural effusion Head CT (June 14 2018): no acute pathology echo LV WNL pleural effusion severe TR RVSP elevated PVR ASSESSMENT/PLAN: 1) Cardiovascular afib - Remains rate controlled on telemetry monitoring, continue atenolol and Cardizem. - no AC patient reports she has declined AC in the past, will defer AC secondary to symptomatic anemia. diastolic congestive heart failure - chest x-ray reviewed worsening of pulmonary vascular congestion likely secondary from 2 units of prbc continue lasix 40mg IV BID, will order an additional 40mg lasix iv x 1 - cardiology consulted and following 2) pulm pleural effusions acute respiratory distress - ABG notable for metabolic alkalosis with secondary respiratory acidosis, will order BiPAP - ct scan of chest, notable for Significant right lower lobe effusion, appreciate pulmonary input, may require thoracentesis 2) Heme/onc microcytic anemia - maybe secondary to lower GI bleed, repeat hemoglobin today after 2 units of prbc, 9.6 strict monitoring iron deficency anemia - iron studies noted start Iron supplements 3)endo hypothyroidism - continue levothyroxine patient admits to not taking her Synthroid for several months DM - fingersticks achs with regular insulin coverage 4)GI positive stool guiac - continue pepicd, appreciate GI input 5) UTI - urinalysis positive nitrates pending urine culture, Zosyn and vancomycin x 1 this AM, start rocephin 1gm iv 6) Neuro Metabolic encephalopathy - Likely secondary to UTI, fall precautions, pending urine and blood cultures. f/e/n - diabetic diet - replete electrolytes prn ppx - hold chemical ac secondary to anemia - mechanical ac only dispo: pt requires inpatient admission Visit type - Emergency Visit Emergency Visit: Yes ED Registration Date: 06/12/18 Care time: The patient presented to the Emergency Department on the above date and was hospitalized for further evaluation of their emergent condition. - New Patient This patient is new to me today: No - Critical Care Critical Care patient: No
[2018-06-14 08:20] LABS: BASO % 0.7 % (0-2.0); EOS % 0.6 % (0-4.5); HEMATOCRIT 29.4 % (32.4-45.2); HEMOGLOBIN 9.6 GM/dl (10.7-15.3); LYMPH % 7.3 % (8-40); MCHC 32.5 g/dl (32.0-36.0); MEAN PLT VOLUME 9.4 fl (7.5-11.1); MONO % 11.9 % (3.8-10.2); NEUT % 79.5 % (42.8-82.8); PLATELET COUNT 274 K/MM3 (134-434); RBC 4.14 M/mm3 (3.60-5.2); RDW 24.4 % (11.6-15.6); WHITE BLOOD COUNT 6.9 K/mm3 (4.0-10.8)
[2018-06-14 09:03] LABS: ALBUMIN 2.9 g/dl (3.5-5.0); ALK PHOS 77 U/L (32-92); ANION GAP 7 (8-16); BILIRUBIN,TOTAL 1.6 mg/dl (0.2-1.0); BLOOD UREA NITROGEN 11 mg/dl (7-18); CHLORIDE 93 mmol/L (98-107); CO2 35 mmol/L (22-28); GLUCOSE,RANDOM 158 mg/dl (74-106); MAGNESIUM 1.8 mg/dL (1.8-2.4); PHOSPHOROUS 3.8 mg/dl (2.5-4.6); POTASSIUM 3.3 mmol/L (3.5-5.1); SGOT/AST 18 U/L (10-42); SGPT/ALT 13 U/L (10-40); SODIUM 135 mmol/L (136-145)
[2018-06-14 09:10] LABS: CREATININE < 0.6 mg/dl (0.6-1.3)
[2018-06-14] MEDS: ALBUTEROL SO4 2.5/IPRATROPIUM 0.5 INH SOL 3 ML VIAL.NEB. NEB SCH ×3 (09:17→18:55)
[2018-06-14] MEDS ORDERED: ONDANSETRON 4 MG/2 ML VIAL IVPB ONE (09:30)
[2018-06-14] MEDS ORDERED: MAGNESIUM 1GM/D5W 100ML - 100 ML IVPB IVPB ONE (09:30)
[2018-06-14] MEDS ORDERED: FUROSEMIDE 40 MG/4 ML INJECTABLE VIAL IVPUSH ONE (10:15)
[2018-06-14] MEDS: MINERAL OIL/PETROLAT/WATER TOPICAL CREAM 454 GM JAR TP SCH ×2 (10:34→21:29)
[2018-06-14 10:41] LABS: PH,URINE 5.5 (4.5-8); URINE APPEARANCE Clear; URINE BILIRUBIN Negative (NEGATIVE); URINE COLOR Yellow; URINE GLUCOSE (UA) Negative (NEGATIVE); URINE KETONE Negative (NEGATIVE); URINE LEUK ESTERASE Negative (NEGATIVE); URINE NITRITE Positive (NEGATIVE); URINE PROTEIN Negative (NEGATIVE); URINE UROBILINOGEN 0.2 (0.2-1.0)
[2018-06-14] MEDS: FAMOTIDINE 20 MG TABLET PO SCH (10:48)
[2018-06-14] MEDS: ATENOLOL 50 MG TABLET (FP) PO SCH (10:48)
[2018-06-14 11:42] LABS: ARTERIAL BLD GAS O2 SATURATION 98.2 % (90-98.9)
[2018-06-14] MEDS: FERROUS SO4 325 MG TABLET (FP) PO SCH ×2 (11:55→21:29)
[2018-06-14] MEDS: LACTOBACILLUS ACIDOPHILUS 1 TABLET PO SCH (11:55)
--- NOTE | 2018-06-14 13:01 | EKG ---
Test Reason : Blood Pressure : / mmHG Vent. Rate : 101 BPM Atrial Rate : 101 BPM P-R Int : 000 ms QRS Dur : 086 ms QT Int : 320 ms P-R-T Axes : 000 047 018 degrees QTc Int : 414 ms ATRIAL FIBRILLATION WITH RAPID VENTRICULAR RESPONSE POSSIBLE ANTERIOR INFARCT , AGE UNDETERMINED ABNORMAL ECG WHEN COMPARED WITH ECG OF 12-JUN-2018 07:17, NO SIGNIFICANT CHANGE WAS FOUND Confirmed by NALLELY DUBOSE MD ([id number]) on 06/14/2018 1:01:34 PM Referred By: MD SHELL Confirmed By:NALLELY DUBOSE MD
--- NOTE | 2018-06-14 13:24 | PN ---
Progress Note, Physician History of Present Illness: Dyspneic earlier in AM, placed on bipap. - Current Medication List Current Medications: Active Medications Albuterol/Ipratropium (Duoneb -) 1 amp NEB QIDR [facility] Last Admin: 06/14/18 12:27 Dose: 1 amp Atenolol (Tenormin -) 50 mg PO DAILY [facility] Last Admin: 06/14/18 10:48 Dose: 50 mg Diltiazem HCl (Cardizem Cd -) 180 mg PO DAILY [facility] Last Admin: 06/14/18 10:48 Dose: Not Given Famotidine (Pepcid -) 20 mg PO BID [facility] Last Admin: 06/14/18 10:48 Dose: 20 mg Ferrous Sulfate (Feosol -) 325 mg PO BID [facility] Last Admin: 06/14/18 11:55 Dose: 325 mg Furosemide (Lasix Injection -) 40 mg IVPUSH BID@0600,1400 [facility] Last Admin: 06/14/18 06:59 Dose: Not Given Ceftriaxone Sodium (Rocephin 1gm Ivpb (Pre-Docked)) 1 gm in 50 mls @ 100 mls/ hr IVPB DAILY [facility]; Protocol Insulin Aspart (Novolog Vial Sliding Scale -) 1 vial SQ ACHS [facility]; Protocol Last Admin: 06/14/18 13:23 Dose: Not Given Lactobacillus Acidophilus (Bacid -) 1 tab PO DAILY [facility] Last Admin: 06/14/18 11:55 Dose: 1 tab Levothyroxine Sodium (Synthroid -) 88 mcg PO DAILY@0700 [facility] Last Admin: 06/14/18 06:59 Dose: 88 mcg Losartan Potassium (Cozaar -) 50 mg PO DAILY [facility] Multi-Ingredient Lotion (Eucerin (Large Jar) -) 1 applic TP BID [facility] Last Admin: 06/14/18 10:34 Dose: 1 applic - Objective Vital Signs: Vital Signs Temperature 98.9 F 06/14/18 12:57 Pulse Rate 86 06/14/18 12:57 Respiratory Rate 18 06/14/18 12:57 Blood Pressure 117/50 06/14/18 12:57 O2 Sat by Pulse Oximetry (%) 98 06/14/18 12:45 Constitutional: Yes: No Distress, Calm, Thin Neck: Yes: Supple Cardiovascular: Yes: Tachycardia, Pulse Irregular, Murmur (2/6 SM) Respiratory: Yes: Diminished, On BiPap Gastrointestinal: Yes: Soft, Hypoactive Bowel Sounds Edema: No Labs: CBC, BMP 06/14/18 07:30 06/14/18 07:30 INR, PTT INR 1.27 (0.82-1.09) H 06/12/18 07:47 - ....Imaging Chest X-ray: Report Reviewed (Increased congestion and pleural effusions) Cat Scan: Report Reviewed (HCT: No acute changes) EKG: Report Reviewed (Afib @ 101) Problem List - Problems (1) Acute on chronic diastolic heart failure Code(s): I50.33 - ACUTE ON CHRONIC DIASTOLIC (CONGESTIVE) HEART FAILURE (2) Atrial fibrillation Code(s): I48.91 - UNSPECIFIED ATRIAL FIBRILLATION Qualifiers: Atrial fibrillation type: persistent Qualified Code(s): I48.1 - Persistent atrial fibrillation (3) Pleural effusion Code(s): J90 - PLEURAL EFFUSION, NOT ELSEWHERE CLASSIFIED (4) Acute hypercapnic respiratory failure Code(s): J96.02 - ACUTE RESPIRATORY FAILURE WITH HYPERCAPNIA (5) Hypothyroidism Code(s): E03.9 - HYPOTHYROIDISM, UNSPECIFIED Qualifiers: Hypothyroidism type: unspecified Qualified Code(s): E03.9 - Hypothyroidism , unspecified Assessment/Plan cta of chest: no CT evidence of pulmonary embolism, pulmonary vascular congestion with cardiomegaly, bilateral pleural effusion Head CT (June 14 2018): no acute pathology echo LV WNL pleural effusion severe TR RVSP elevated PVR 1. Acute hypercapneic respiratory failure referable to 2. Acute on chronic diastolic heart failure with pleural effusions 3. Persistent afib, not on a/c as patient has declined in past 4. Hypothyroidism 5. Anemia P:1. IV diuresis with monitor diuretic response, renal function and electolytes 2. Readdress anticoagulation indications with patient 3. Consider thoracentesis right effusion 4. Continue atenolol 50 qd, Cardizem CD 180 qd, losartan 50 qd 5. BD, empiric abx, bipap and O2 as needed
[2018-06-14 14:18] LABS: ARTERIAL BLD GAS O2 SATURATION 96.9 % (90-98.9); ARTERIAL BLOOD GAS PCO2 56.5 mmHg (35-45); ARTERIAL BLOOD GAS PO2 78.9 mmHg (68-100); ARTERIAL BLOOD GAS pH 7.44 (7.35-7.45)
[2018-06-14 14:20] LABS: ALLENS TEST POSITIVE
[2018-06-14] MEDS ORDERED: KCL 10 MEQ IVPB 10 MEQ/100 ML INFUS.BAG IVPB SCH (14:30)
[2018-06-14] MEDS: PANTOPRAZOLE SODIUM 40 MG VIAL IVPUSH SCH (14:40)
[2018-06-14] MEDS ORDERED: SODIUM BICARBONATE 2.4 MEQ/5 ML SDVIAL IV ONE (14:45)
--- NOTE | 2018-06-14 16:07 | PN ---
Progress Note (short form) - Note Progress Note: ID Consult dictated Possible bibasilar pneumonia/ sepsis secondary to lung source Large R pleural effusion Anemia Pending sepsis workup empiric ceftriaxone/ vancomycin
--- NOTE | 2018-06-14 17:29 | CONS ---
DATE OF CONSULTATION: DATE OF DICTATION: 06/14/2018 INFECTIOUS DISEASE CONSULTATION HISTORY OF PRESENT ILLNESS: The patient is an 87-year-old female who is evaluated for fever. He was admitted to the hospital on June 12, 2018, with worsening shortness of breath and generalized weakness. According to the notes, she has had worsening shortness of breath and weakness for several weeks. She had been seen as an outpatient and was transfused packed red blood cells for anemia. Upon admission, a chest x-ray showed bilateral pleural effusions with atelectasis, possible pneumonia. A CAT scan of the chest was performed. It was negative for pulmonary embolism but showed pulmonary vascular congestion and a large right-sided effusion. Her course has now been complicated by fever of 100.9 and labored breathing and poor responsiveness. Cultures were obtained. She was empirically treated with vancomycin and Zosyn. At the present time, she offers no complaints. She is in no acute respiratory distress. PAST MEDICAL HISTORY: Positive for CVA, atrial fibrillation, breast cancer, hypertension, hypothyroidism, diabetes mellitus. PAST SURGICAL HISTORY: Status post right mastectomy. ALLERGIES: No known allergies. MEDICATION: Include aspirin, Synthroid. SOCIAL HISTORY: Positive history of tobacco use. SYSTEMS REVIEW: Neurologic: Positive for stroke. No seizure activity. Cardiac: Positive for atrial fibrillation. Respiratory: As per HPI. Gastrointestinal: Negative vomiting or diarrhea. Genitourinary: Negative for urinary tract infection. LABORATORY DATA: White count 6.9, hematocrit 29.4, platelet count 274. BUN 11, creatinine 0.6. CAT scan of the chest, no pulmonary embolism, a moderate to large right pleural effusion and small to moderate left pleural effusion with associated bibasilar compressive atelectasis. PHYSICAL EXAMINATION: General: She is awake. She is in no acute respiratory distress. Vital signs: Temperature 100.9, blood pressure 117/49, pulse 98 regular, respirations 18 per minute. HEENT: Sclerae anicteric. Cardiovascular: Heart sounds S1, S2. Respiratory: Lungs clear bilaterally. Abdomen: Soft. No tenderness elicited. No mass, rebound, or rigidity. Extremities: 1+ edema. IMPRESSION: 1. Possible bibasilar pneumonia. 2. Sepsis syndrome. 3. Large right pleural effusion. Await cultures. Empiric antibiotic coverage with ceftriaxone and vancomycin. Hemodynamic support. Transfusion as needed. Prognosis is guarded. Will follow. Thank you for the kind referral. MARCELINA SIMPSON M.D. [id number]
[2018-06-14] MEDS: ONDANSETRON 4 MG/2 ML VIAL IVPUSH PRN (17:42)
[2018-06-15] MEDS: ALBUTEROL SO4 2.5/IPRATROPIUM 0.5 INH SOL 3 ML VIAL.NEB. NEB SCH ×5 (00:52→23:59)
[2018-06-15] MEDS: FUROSEMIDE 40 MG/4 ML INJECTABLE VIAL IVPUSH SCH (06:19)
[2018-06-15] MEDS: LEVOTHYROXINE NA 88 MCG TABLET (FP) PO SCH (06:19)
[2018-06-15] MEDS: INSULIN SLIDING SCALE (NOVOLOG) 1 VIAL SQ SCH ×4 (06:45→21:39)
[2018-06-15 08:28] LABS: BASO % 2.2 % (0-2.0); HEMOGLOBIN 10.1 GM/dl (10.7-15.3); LYMPH % 11.9 % (8-40); MCH 23.5 pg (25.7-33.7); MCHC 32.7 g/dl (32.0-36.0); MEAN CELL VOLUME 71.7 fl (80-96); MONO % 14.5 % (3.8-10.2); NEUT % 66.4 % (42.8-82.8); PLATELET COUNT 275 K/MM3 (134-434); RBC 4.32 M/mm3 (3.60-5.2); WHITE BLOOD COUNT 5.8 K/mm3 (4.0-10.8)
[2018-06-15 08:31] LABS: ANION GAP 8 (8-16); BLOOD UREA NITROGEN 10 mg/dl (7-18); CALCIUM 8.1 mg/dl (8.4-10.2); CHLORIDE 86 mmol/L (98-107); CO2 39 mmol/L (22-28); GLUCOSE,RANDOM 113 mg/dl (74-106); MAGNESIUM 1.8 mg/dL (1.8-2.4); PHOSPHOROUS 3.5 mg/dl (2.5-4.6); SODIUM 133 mmol/L (136-145)
[2018-06-15 08:35] LABS: CREATININE < 0.6 mg/dl (0.6-1.3)
--- NOTE | 2018-06-15 09:00 | PN ---
Physical Exam: SUBJECTIVE: Patient seen and examined, sitting in bedside recliner tolerating diet, reports moist cough, denies any chest pain OBJECTIVE:patient is a 87-year-old female with a past medical history of A. fib (no AC), CVA, breast cancer,hypothyroidism, iron deficiency anemia, and DM. patient was admitted from the emergency department to telemetry for acute congestive heart failure and symptomatic anemia Vital Signs Period Temp Pulse Resp BP Sys/De La O Pulse Ox Last 24 Hr 97.8 F-98.9 F 78-98 16-19 105-134/43-61 98-100 GENERAL: The patient is awake, alert, and fully oriented, in no acute distress. HEAD: Normal with no signs of trauma. EYES: PERRL, extraocular movements intact, sclera anicteric, conjunctiva clear. No ptosis. ENT: Ears normal, nares patent, oropharynx clear without exudates, moist mucous membranes. NECK: Trachea midline, full range of motion, supple. LUNGS: Breath sounds equal, clear to apexes, diminished to bases, no wheezes, no crackles, no accessory muscle use. HEART: irregular rate and rhythm, S1, S2 without murmur, rub or gallop. ABDOMEN: Soft, nontender, nondistended, normoactive bowel sounds, no guarding, no rebound, no hepatosplenomegaly, no masses. EXTREMITIES: 2+ pulses, warm, well-perfused, no edema. NEUROLOGICAL: Cranial nerves II through XII grossly intact. Normal speech, gait not observed. PSYCH: Normal mood, normal affect. SKIN: Warm, dry, normal turgor, no rashes or lesions noted Laboratory Results - last 24 hr 06/14/18 06/14/18 06/14/18 14:15 17:30 21:53 WBC RBC Hgb Hct MCV MCH MCHC RDW Plt Count MPV Absolute Neuts (auto) Neutrophils % Lymphocytes % Monocytes % Eosinophils % Basophils % Anticoagulation Therapy Puncture Site Right radial ABG pH 7.44 ABG pCO2 at Pt Temp 56.5 H ABG pO2 at Pt Temp 78.9 D ABG HCO3 37.6 H ABG O2 Sat (Measured) 96.9 ABG O2 Content 12.6 L ABG Base Excess 12.0 H Shaheen Test Positive O2 Delivery Device Oxygen Flow Rate Yes Vent Mode Vent Rate Mechanical Rate Pressure Support Vent Sodium Potassium Chloride Carbon Dioxide Anion Gap BUN Creatinine Creat Clearance w eGFR POC Glucometer 133 121 Random Glucose Lactic Acid Calcium Phosphorus Magnesium Total Bilirubin AST ALT Alkaline Phosphatase Total Protein Albumin Urine Color Urine Appearance Urine pH Ur Specific [place] Urine Protein Urine Glucose (UA) Urine Ketones Urine Blood Urine Nitrite Urine Bilirubin Urine Urobilinogen Ur Leukocyte Esterase Stool Occult Blood 06/15/18 06/15/18 06/15/18 06:24 08:00 08:00 WBC 5.8 RBC 4.32 Hgb 10.1 L Hct 31.0 L MCV 71.7 L MCH 23.5 L MCHC 32.7 RDW 25.0 H Plt Count 275 MPV 9.0 Absolute Neuts (auto) 3.9 Neutrophils % 66.4 Lymphocytes % 11.9 Monocytes % 14.5 H Eosinophils % 5.0 H Basophils % 2.2 H Anticoagulation Therapy Puncture Site ABG pH ABG pCO2 at Pt Temp ABG pO2 at Pt Temp ABG HCO3 ABG O2 Sat (Measured) ABG O2 Content ABG Base Excess Shaheen Test O2 Delivery Device Oxygen Flow Rate Vent Mode Vent Rate Mechanical Rate Pressure Support Vent Sodium 133 L Potassium 3.0 L Chloride 86 L Carbon Dioxide 39 H Anion Gap 8 BUN 10 Creatinine < 0.6 L Creat Clearance w eGFR > 60 POC Glucometer 95 Random Glucose 113 H D Lactic Acid Calcium 8.1 L Phosphorus 3.5 Magnesium 1.8 Total Bilirubin AST ALT Alkaline Phosphatase Total Protein Albumin Urine Color Urine Appearance Urine pH Ur Specific [place] Urine Protein Urine Glucose (UA) Urine Ketones Urine Blood Urine Nitrite Urine Bilirubin Urine Urobilinogen Ur Leukocyte Esterase Stool Occult Blood Active Medications Generic Name Dose Route Start Last Admin Trade Name Marlin PRN Reason Stop Dose Admin Albuterol/Ipratropium 1 amp 06/14/18 08:33 06/15/18 06:19 Duoneb - NEB 1 amp QIDR REED Administration Atenolol 50 mg 06/13/18 10:00 06/14/18 10:48 Tenormin - PO 50 mg DAILY REED Administration Diltiazem HCl 180 mg 06/12/18 21:43 06/14/18 10:48 Cardizem Cd - PO Not Given DAILY REED Ferrous Sulfate 325 mg 06/14/18 11:30 06/14/18 21:29 Feosol - PO 325 mg BID REED Administration Furosemide 40 mg 06/12/18 14:00 06/15/18 06:19 Lasix Injection - IVPUSH 40 mg BID@0600,1400 REED Administration Ceftriaxone Sodium 1 gm in 50 mls @ 100 mls/hr 06/15/18 10:00 Rocephin 1gm Ivpb (Pre-Docked) IVPB DAILY [facility] Protocol Insulin Aspart 1 vial 06/12/18 16:30 06/15/18 06:45 Novolog Vial Sliding Scale - SQ Not Given ACHS REED Protocol Lactobacillus Acidophilus 1 tab 06/14/18 11:00 06/14/18 11:55 Bacid - PO 1 tab DAILY REED Administration Levothyroxine Sodium 88 mcg 06/13/18 07:00 06/15/18 06:19 Synthroid - PO 88 mcg DAILY@0700 REED Administration Losartan Potassium 50 mg 06/15/18 10:00 Cozaar - PO DAILY REED Multi-Ingredient Lotion 1 applic 06/12/18 13:15 06/14/18 21:29 Eucerin (Large Jar) - TP 1 applic BID REED Administration Ondansetron HCl 4 mg 06/14/18 16:43 06/14/18 17:42 Zofran Injection IVPUSH 4 mg Q6H PRN Administration NAUSEA Pantoprazole Sodium 40 mg 06/14/18 14:30 06/14/18 14:40 Protonix Iv IVPUSH 40 mg DAILY REED Administration Microbiology 06/14/18 10:30 Urine - Urine [place] Urine Culture - Preliminary Lactose Fermenting Neg Bacilli 06/14/18 08:30 Blood - Peripheral Venous Blood Culture - Preliminary NO GROWTH OBTAINED AFTER 24 HOURS, INCUBATION TO CONTINUE FOR 4 DAYS. 06/14/18 08:30 Blood - Peripheral Venous Blood Culture - Preliminary NO GROWTH OBTAINED AFTER 24 HOURS, INCUBATION TO CONTINUE FOR 4 DAYS. IMAGING cta of chest: no CT evidence of pulmonary embolism, pulmonary vascular congestion with cardiomegaly, bilateral pleural effusion Head CT (June 14 2018): no acute pathology echo LV WNL pleural effusion severe TR RVSP elevated PVR ASSESSMENT/PLAN: 1) Cardiovascular afib - Remains rate controlled on telemetry monitoring, continue atenolol and Cardizem. - no AC patient reports she has declined AC in the past. diastolic congestive heart failure - patient diuresed, 4 kg weight loss noted, lasix decreased to 40mg IV QD - cardiology consulted and following 2) pulm pleural effusions acute respiratory failure with hypercapneia - spo2 99% on 2Lnc, no signs of respiratory distress noted on exam, close monitoring BiPAP as needed - ct scan of chest, notable for Significant right lower lobe effusion, appreciate pulmonary input, may require thoracentesis - continue empiric vancomycin and Rocephin - Serial chest xrays 2) Heme/onc microcytic anemia - maybe secondary to lower GI bleed, repeat hemoglobin today is trending upward , 2 units of prbc, June 13 2018 iron deficency anemia - iron studies noted start Iron supplements 3)endo hypothyroidism - continue levothyroxine patient admits to not taking her Synthroid for several months DM - fingersticks achs with regular insulin coverage 4)GI positive stool guiac - continue Protonix, GI Dr. Simpson consulted and following, patient will require endoscopy pending clearance from cardiology 5) UTI - urine culture preliminary lactose fermenting bacilli, continue Rocephin 6) Neuro Metabolic encephalopathy - Likely secondary to UTI versus hypercapnia, closer to baseline - fall precautions f/e/n - diabetic diet - replete electrolytes prn ppx - hold chemical ac secondary to anemia - mechanical ac only dispo: pt requires inpatient admission Visit type - Emergency Visit Emergency Visit: Yes ED Registration Date: 06/12/18 Care time: The patient presented to the Emergency Department on the above date and was hospitalized for further evaluation of their emergent condition. - New Patient This patient is new to me today: No - Critical Care Critical Care patient: No - Discharge Referral Referred to [facility] Med P.C.: No
[2018-06-15] MEDS: LACTOBACILLUS ACIDOPHILUS 1 TABLET PO SCH (09:27)
[2018-06-15] MEDS: FERROUS SO4 325 MG TABLET (FP) PO SCH ×2 (09:32→21:38)
[2018-06-15] MEDS: LOSARTAN POTASSIUM 50 MG TABLET (FP) PO SCH (09:32)
[2018-06-15] MEDS: MINERAL OIL/PETROLAT/WATER TOPICAL CREAM 454 GM JAR TP SCH ×2 (09:32→21:39)
[2018-06-15] MEDS: PANTOPRAZOLE SODIUM 40 MG VIAL IVPUSH SCH (09:33)
[2018-06-15] MEDS: ATENOLOL 50 MG TABLET (FP) PO SCH (09:33)
[2018-06-15] MEDS: CEFTRIAXONE 1 GM/50 ML BAG IVPB SCH (09:33)
[2018-06-15] MEDS: KCL 10 MEQ IVPB 10 MEQ/100 ML INFUS.BAG IVPB SCH ×2 (09:50→10:55)
[2018-06-15] MEDS ORDERED: POTASSIUM CHLORIDE TABS 20 MEQ TABLET.ER (FP) PO ONE (10:00)
[2018-06-15] MEDS ORDERED: IRBESARTAN 150 MG PO SCH (10:00)
[2018-06-15] MEDS: SODIUM BICARBONATE 2.4 MEQ/5 ML SDVIAL IV SCH ×2 (10:00→11:34)
--- NOTE | 2018-06-15 10:04 | PN ---
Progress Note (short form) - Note Progress Note: Patient seen and chart reviewed; case discussed with Dr Painting (PMD); consult dictated. Patient with hx of occult GI bleeding requiring blood transfusions. Recent development of severe microcytic anemia, heme + stool and both CHF and UTI. Has been on aspirin chronically for A fib. Offers no specific GI c/o and has refused GI workups in past. Currently more stable s/p blood transfusion and on PPI. In view of need for reading coach a/c (with ASA) would suggest both EGD and colonoscopy if patient/son agreeable. Agree with current plans and if agreeable and clinically stable, can plan for GI endoscopy after weekend.
--- NOTE | 2018-06-15 10:36 | PN ---
Progress Note, Physician History of Present Illness: Dyspnea improved, now on NC. - Current Medication List Current Medications: Active Medications Albuterol/Ipratropium (Duoneb -) 1 amp NEB QIDR [facility] Last Admin: 06/15/18 06:19 Dose: 1 amp Atenolol (Tenormin -) 50 mg PO DAILY [facility] Last Admin: 06/15/18 09:33 Dose: 50 mg Diltiazem HCl (Cardizem Cd -) 180 mg PO DAILY [facility] Last Admin: 06/15/18 09:32 Dose: 180 mg Ferrous Sulfate (Feosol -) 325 mg PO BID [facility] Last Admin: 06/15/18 09:32 Dose: 325 mg Furosemide (Lasix Injection -) 40 mg IVPUSH BID@0600,1400 [facility] Last Admin: 06/15/18 06:19 Dose: 40 mg Ceftriaxone Sodium (Rocephin 1gm Ivpb (Pre-Docked)) 1 gm in 50 mls @ 100 mls/ hr IVPB DAILY [facility]; Protocol Last Admin: 06/15/18 09:33 Dose: 100 mls/hr Potassium Chloride (Potassium Chloride 10 Meq Premix Ivpb -) 10 meq in 100 mls @ 100 mls/hr IVPB Q60M [facility] Stop: 06/15/18 11:44 Insulin Aspart (Novolog Vial Sliding Scale -) 1 vial SQ ACHS [facility]; Protocol Last Admin: 06/15/18 06:45 Dose: Not Given Lactobacillus Acidophilus (Bacid -) 1 tab PO DAILY [facility] Last Admin: 06/15/18 09:27 Dose: 1 tab Levothyroxine Sodium (Synthroid -) 88 mcg PO DAILY@0700 [facility] Last Admin: 06/15/18 06:19 Dose: 88 mcg Losartan Potassium (Cozaar -) 50 mg PO DAILY [facility] Last Admin: 06/15/18 09:32 Dose: 50 mg Multi-Ingredient Lotion (Eucerin (Large Jar) -) 1 applic TP BID [facility] Last Admin: 06/15/18 09:32 Dose: 1 applic Ondansetron HCl (Zofran Injection) 4 mg IVPUSH Q6H PRN PRN Reason: NAUSEA Last Admin: 06/14/18 17:42 Dose: 4 mg Pantoprazole Sodium (Protonix Iv) 40 mg IVPUSH DAILY [facility] Last Admin: 06/15/18 09:33 Dose: 40 mg Sodium Bicarbonate (Neut 4% Injection -) 2.4 meq IV Q1H [facility] Stop: 06/15/18 11:01 - Objective Vital Signs: Vital Signs Temperature 98.8 F 06/15/18 10:00 Pulse Rate 113 H 06/15/18 10:00 Respiratory Rate 18 06/15/18 10:00 Blood Pressure 137/66 06/15/18 10:00 O2 Sat by Pulse Oximetry (%) 97 06/15/18 10:00 Constitutional: Yes: No Distress, Calm, Thin Neck: Yes: Supple Cardiovascular: Yes: Regular Rate and Rhythm Respiratory: Yes: Regular, Diminished, On Nasal O2 Gastrointestinal: Yes: Normal Bowel Sounds, Soft Edema: No Labs: CBC, BMP 06/15/18 08:00 06/15/18 08:00 INR, PTT INR 1.27 (0.82-1.09) H 06/12/18 07:47 Problem List - Problems (1) Acute on chronic diastolic heart failure Code(s): I50.33 - ACUTE ON CHRONIC DIASTOLIC (CONGESTIVE) HEART FAILURE (2) Atrial fibrillation Code(s): I48.91 - UNSPECIFIED ATRIAL FIBRILLATION Qualifiers: Atrial fibrillation type: persistent Qualified Code(s): I48.1 - Persistent atrial fibrillation (3) Pleural effusion Code(s): J90 - PLEURAL EFFUSION, NOT ELSEWHERE CLASSIFIED (4) Acute hypercapnic respiratory failure Code(s): J96.02 - ACUTE RESPIRATORY FAILURE WITH HYPERCAPNIA (5) Hypothyroidism Code(s): E03.9 - HYPOTHYROIDISM, UNSPECIFIED Qualifiers: Hypothyroidism type: unspecified Qualified Code(s): E03.9 - Hypothyroidism , unspecified Assessment/Plan cta of chest: no CT evidence of pulmonary embolism, pulmonary vascular congestion with cardiomegaly, bilateral pleural effusion Head CT (June 14 2018): no acute pathology echo LV WNL pleural effusion severe TR RVSP elevated PVR 1. Acute hypercapneic respiratory failure referable to 2. Acute on chronic diastolic heart failure with pleural effusions 3. Persistent afib, not on a/c as patient has declined in past 4. Hypothyroidism 5. Microcytic anemia 6. Gram neg bacillus UTI P:1. Decrease IV diuresis with monitor diuretic response, renal function and electolytes, replete K 2. Readdress anticoagulation indications with patient 3. Consider thoracentesis right effusion 4. Continue atenolol 50 qd, Cardizem CD 180 qd, losartan 50 qd 5. BD, empiric abx, bipap and O2 as needed
[2018-06-15] MEDS ORDERED: MAGNESIUM SULF 50% (8.12 MEQ/2 ML-1 GM VIAL) IVPB ONE (13:35)
[2018-06-15] MEDS ORDERED: MAGNESIUM 1GM/D5W - 1 GM/100 ML IVPB IVPB ONE (14:00)
--- NOTE | 2018-06-15 14:39 | CONS ---
DATE OF CONSULTATION: 06/15/2018 I was asked to consult this pleasant, 87-year-old female admitted with sepsis and also some difficulty in remembering events and weakness in the lower extremity. Workup revealed evidence of a high-grade carotid stenosis, right worse than the left, and I was asked to see the patient for that reason. Patient is an 87-year-old, apparently history of diabetes well controlled with diet and atrial fibrillation not on anticoagulation, has been living independently at home. Patient has been ambulating with some difficulty but able to walk normal distance at home. Patient has history of stroke a few years back, affecting the left side of the body, now residual weakness only present in the left lower extremity. Patient had no speech difficulty and no history of cardiac problem other than the atrial fibrillation. No chest pain at the present time. Patient has some shortness of breath, requiring CPAP yesterday, but now, today, she is on oxygen and able to talk without much orthopnea. Patient has no amaurosis fugax and no slurring of the speech in the last few years or recently. PHYSICAL EXAMINATION: General: Patient is a very pleasant woman in no acute distress and able to communicate fully, fully oriented to time and space and able to move all the 4 extremities, but the left lower extremity is slightly weaker than the right side. Heart: History of atrial fibrillation. Obviously, the heart rate is irregular. The carotid duplex revealed 80 to 99 on right side and 69% to 75% on the left side. Since, the patient has had stroke in the past with high-grade stenosis, she is definitely a candidate for carotid endarterectomy at least on the right side to prevent a major stroke, and this we will do electively in the next week after the patient is discharged from this hospital and readmitted to [facility] for postoperative care. In the meantime, patient could be started on aspirin 1 tablet a day, and we will make the arrangements for her to be admitted in the next few days. Patient is in room 207 in the hospital right now. Please send the chart up to the floor. SALMA CHIN M.D. [id number]
--- NOTE | 2018-06-15 21:05 | CONS ---
DATE OF CONSULTATION: 06/15/2018 Asked to evaluate this 87-year-old female admitted with severe anemia and occult GI blood loss. The patient is an 87-year-old female with a past medical history of atrial fibrillation, prior stroke, breast cancer, hypothyroidism, iron deficiency anemia, and diabetes mellitus. She has refused GI workup in the past. The patient was admitted via the emergency room with increased shortness of breath, congestive heart failure, and symptomatic anemia. She also was noted to have a urinary tract infection. The patient has been seen by several consult services including cardiology and is currently being treated for congestive heart failure as well as urinary tract infection. She was noted to have, on admission, a hemoglobin down to 7 with hematocrit of 22.9, MCV of 66.2. Her chemistry panel showed a BUN of 10, a creatinine of 0.6. Iron studies are currently pending, with the stool Hemoccult positive. The patient also has had prior stroke in the past and was recently seen for evaluation and noted to have significant carotid disease. She has been on aspirin chronically, which may be contributing to her occult GI blood loss and anemia. As mentioned, she has refused GI workup in the past. The patient denies any nausea or abdominal cramps. She did have some prior decreased appetite, which may be related to the recent urinary infection and/or congestive heart failure. She has not had prior colonoscopy or upper endoscopy in the past. She is currently on pantoprazole daily. On exam, the patient is a well-developed elderly female with somewhat diminished memory but is alert and appears comfortable. She has a soft abdomen, normoactive bowel sounds and no tenderness. The stool is guaiac positive. Patient with chronic atrial fibrillation, prior stroke, and a high risk for repeat embolic events. May need to be on long-term anticoagulation but at the same time has occult GI bleeding with significant anemia. I have discussed options for workup with the patient, her son, and her primary care doctor, Dr. Painting. If the patient and family are agreeable, we consider for upper endoscopy and possible colonoscopy, when she is stabilized, to evaluate for the source of bleeding and manage her anticoagulation issues going forward. Will follow in the interim. If patient is not felt to be a good candidate or refuses, would transfuse as needed, monitor closely, with cautious use of any anticoagulation. Will follow as needed. IRIS MEJÍA M.D. [id number]
[2018-06-15] MEDS ORDERED: INSULIN (NOVOLOG) ASPART 100 UNITS/ML 10ML VIAL ONE (21:34)
[2018-06-16] MEDS: LEVOTHYROXINE NA 88 MCG TABLET (FP) PO SCH (06:31)
[2018-06-16] MEDS: ALBUTEROL SO4 2.5/IPRATROPIUM 0.5 INH SOL 3 ML VIAL.NEB. NEB SCH ×3 (06:31→17:13)
[2018-06-16] MEDS: INSULIN SLIDING SCALE (NOVOLOG) 1 VIAL SQ SCH ×4 (06:42→21:48)
[2018-06-16 07:55] LABS: HEMOGLOBIN 9.9 GM/dl (10.7-15.3); WHITE BLOOD COUNT 5.9 K/mm3 (4.0-10.8)
[2018-06-16 07:58] LABS: HEMATOCRIT 32.6 % (32.4-45.2); MCH 21.8 pg (25.7-33.7); MCHC 30.4 g/dl (32.0-36.0); MEAN CELL VOLUME 71.9 fl (80-96); MEAN PLT VOLUME 9.5 fl (7.5-11.1); PLATELET COUNT 318 K/MM3 (134-434); RBC 4.54 M/mm3 (3.60-5.2); RDW 25.5 % (11.6-15.6)
[2018-06-16 08:57] LABS: ALBUMIN 2.6 g/dl (3.5-5.0); ALK PHOS 68 U/L (32-92); ANION GAP 7 (8-16); BLOOD UREA NITROGEN 12 mg/dl (7-18); CHLORIDE 85 mmol/L (98-107); CO2 39 mmol/L (22-28); GLUCOSE,RANDOM 99 mg/dl (74-106); MAGNESIUM 2.1 mg/dL (1.8-2.4); PHOSPHOROUS 3.5 mg/dl (2.5-4.6); POTASSIUM 3.4 mmol/L (3.5-5.1); SGOT/AST 20 U/L (10-42); SGPT/ALT 16 U/L (10-40); SODIUM 131 mmol/L (136-145); TOT PROT 5.7 g/dl (6.4-8.3)
[2018-06-16 08:58] LABS: CREATININE < 0.6 mg/dl (0.6-1.3)
[2018-06-16] MEDS ORDERED: PT OWN MED DRAWER 7, Y5N ONE (09:06)
--- NOTE | 2018-06-16 09:23 | PN ---
Progress Note, Physician History of Present Illness: OOB in chair Offers no complaints Appears comfortable Breathing non-labored Temps down Afebrile WBC WNL BC (-) Urine c/s LF - Current Medication List Current Medications: Active Medications Albuterol/Ipratropium (Duoneb -) 1 amp NEB QIDR [facility] Last Admin: 06/16/18 06:31 Dose: 1 amp Atenolol (Tenormin -) 50 mg PO DAILY [facility] Last Admin: 06/15/18 09:33 Dose: 50 mg Diltiazem HCl (Cardizem Cd -) 180 mg PO DAILY [facility] Last Admin: 06/15/18 09:32 Dose: 180 mg Ferrous Sulfate (Feosol -) 325 mg PO BID [facility] Last Admin: 06/15/18 21:38 Dose: 325 mg Furosemide (Lasix Injection -) 40 mg IVPUSH DAILY [facility] Ceftriaxone Sodium (Rocephin 1gm Ivpb (Pre-Docked)) 1 gm in 50 mls @ 100 mls/ hr IVPB DAILY [facility]; Protocol Last Admin: 06/15/18 09:33 Dose: 100 mls/hr Insulin Aspart (Novolog Vial Sliding Scale -) 1 vial SQ ACHS [facility]; Protocol Last Admin: 06/16/18 06:42 Dose: Not Given Lactobacillus Acidophilus (Bacid -) 1 tab PO DAILY [facility] Last Admin: 06/15/18 09:27 Dose: 1 tab Levothyroxine Sodium (Synthroid -) 88 mcg PO DAILY@0700 [facility] Last Admin: 06/16/18 06:31 Dose: 88 mcg Losartan Potassium (Cozaar -) 50 mg PO DAILY [facility] Last Admin: 06/15/18 09:32 Dose: 50 mg Multi-Ingredient Lotion (Eucerin (Large Jar) -) 1 applic TP BID [facility] Last Admin: 06/15/18 21:39 Dose: 1 applic Ondansetron HCl (Zofran Injection) 4 mg IVPUSH Q6H PRN PRN Reason: NAUSEA Last Admin: 06/14/18 17:42 Dose: 4 mg Pantoprazole Sodium (Protonix Iv) 40 mg IVPUSH DAILY [facility] Last Admin: 06/15/18 09:33 Dose: 40 mg - Objective Vital Signs: Vital Signs Temperature 98.9 F 06/16/18 06:00 Pulse Rate 81 06/16/18 06:00 Respiratory Rate 18 06/16/18 06:00 Blood Pressure 119/45 06/16/18 06:00 O2 Sat by Pulse Oximetry (%) 99 06/16/18 06:33 Constitutional: Yes: No Distress Eyes: Yes: Conjunctiva Clear Cardiovascular: Yes: Regular Rate and Rhythm, S1, S2 Respiratory: Yes: Diminished Gastrointestinal: Yes: Normal Bowel Sounds, Soft. No: Tenderness Labs: CBC, BMP 06/16/18 07:15 06/16/18 07:15 INR, PTT INR 1.27 (0.82-1.09) H 06/12/18 07:47 Assessment/Plan Bibasilar pneumonia Large R pleural effusion S/P sepsis syndrome- improved UTI Await final c/s Switch to po antibiotics next 24h after final c/s available
[2018-06-16 09:48] LABS: OVALOCYTE FEW; PLATELET ESTIMATE ADEQUATE; TEAR DROP CELLS FEW
[2018-06-16 09:49] LABS: ANISOCYTOSIS 2+
[2018-06-16] MEDS: CEFTRIAXONE 1 GM/50 ML BAG IVPB SCH (09:49)
[2018-06-16] MEDS: PANTOPRAZOLE SODIUM 40 MG VIAL IVPUSH SCH (09:49)
[2018-06-16] MEDS: FERROUS SO4 325 MG TABLET (FP) PO SCH ×2 (09:49→21:22)
[2018-06-16] MEDS: LACTOBACILLUS ACIDOPHILUS 1 TABLET PO SCH (09:49)
[2018-06-16] MEDS: FUROSEMIDE 40 MG/4 ML INJECTABLE VIAL IVPUSH SCH (09:49)
[2018-06-16] MEDS: ATENOLOL 50 MG TABLET (FP) PO SCH (09:49)
[2018-06-16] MEDS: LOSARTAN POTASSIUM 50 MG TABLET (FP) PO SCH (09:49)
[2018-06-16] MEDS: MINERAL OIL/PETROLAT/WATER TOPICAL CREAM 454 GM JAR TP SCH ×2 (09:50→21:22)
--- NOTE | 2018-06-16 11:35 | PN ---
Physical Exam: SUBJECTIVE: Patient seen and examined, patient sitting at bedside recliner, reports feeling better, more awake,does report moist cough OBJECTIVE:patient is a 87-year-old female with a past medical history of A. fib (no AC), CVA, breast cancer,hypothyroidism, iron deficiency anemia, and DM. patient was admitted from the emergency department to telemetry for acute congestive heart failure and symptomatic anemia Vital Signs Period Temp Pulse Resp BP Sys/De La O Pulse Ox Last 24 Hr 97.8 F-99.0 F 79-89 17-19 101-127/36-51 96-100 GENERAL: The patient is awake, alert, and fully oriented, in no acute distress. HEAD: Normal with no signs of trauma. EYES: PERRL, extraocular movements intact, sclera anicteric, conjunctiva clear. No ptosis. ENT: Ears normal, nares patent, oropharynx clear without exudates, moist mucous membranes. NECK: Trachea midline, full range of motion, supple. LUNGS: Breath sounds equal, clear to auscultation bilaterally, no wheezes, no crackles, no accessory muscle use. HEART: Regular rate and rhythm, S1, S2 without murmur, rub or gallop. ABDOMEN: Soft, nontender, nondistended, normoactive bowel sounds, no guarding, no rebound, no hepatosplenomegaly, no masses. EXTREMITIES: 2+ pulses, warm, well-perfused, no edema. NEUROLOGICAL: Cranial nerves II through XII grossly intact. Normal speech, gait not observed. PSYCH: Normal mood, normal affect. SKIN: Warm, dry, normal turgor, no rashes or lesions noted Laboratory Results - last 24 hr 06/15/18 06/16/18 06/16/18 21:07 06:23 07:15 WBC 5.9 RBC 4.54 Hgb 9.9 L Hct 32.6 MCV 71.9 L MCH 21.8 L MCHC 30.4 L RDW 25.5 H Plt Count 318 MPV 9.5 Absolute Neuts (auto) 3.5 Neutrophils % No Result Required. Neutrophils % (Manual) 71.0 Lymphocytes % No Result Required. Lymphocytes % (Manual) 9.0 Monocytes % (Manual) 17 H* Eosinophils % (Manual) 3.0 Hypochromia 2+ Platelet Estimate Adequate Anisocytosis 2+ Microcytosis Few Tear Drop Cells Few Ovalocytes Few Sodium Potassium Chloride Carbon Dioxide Anion Gap BUN Creatinine Creat Clearance w eGFR POC Glucometer 210 103 Random Glucose Calcium Phosphorus Magnesium Total Bilirubin AST ALT Alkaline Phosphatase Total Protein Albumin 06/16/18 07:15 WBC RBC Hgb Hct MCV MCH MCHC RDW Plt Count MPV Absolute Neuts (auto) Neutrophils % Neutrophils % (Manual) Lymphocytes % Lymphocytes % (Manual) Monocytes % (Manual) Eosinophils % (Manual) Hypochromia Platelet Estimate Anisocytosis Microcytosis Tear Drop Cells Ovalocytes Sodium 131 L Potassium 3.4 L Chloride 85 L Carbon Dioxide 39 H Anion Gap 7 L BUN 12 Creatinine < 0.6 L Creat Clearance w eGFR > 60 POC Glucometer Random Glucose 99 Calcium 8.0 L Phosphorus 3.5 Magnesium 2.1 Total Bilirubin 1.0 AST 20 ALT 16 D Alkaline Phosphatase 68 Total Protein 5.7 L Albumin 2.6 L Active Medications Generic Name Dose Route Start Last Admin Trade Name Freq PRN Reason Stop Dose Admin Albuterol/Ipratropium 1 amp 06/14/18 08:33 06/16/18 06:31 Duoneb - NEB 1 amp QIDR REED Administration Atenolol 50 mg 06/13/18 10:00 06/16/18 09:49 Tenormin - PO 50 mg DAILY REED Administration Diltiazem HCl 180 mg 06/12/18 21:43 06/16/18 09:49 Cardizem Cd - PO 180 mg DAILY REED Administration Ferrous Sulfate 325 mg 06/14/18 11:30 06/16/18 09:49 Feosol - PO 325 mg BID REED Administration Furosemide 40 mg 06/16/18 10:00 06/16/18 09:49 Lasix Injection - IVPUSH 40 mg DAILY REED Administration Ceftriaxone Sodium 1 gm in 50 mls @ 100 mls/hr 06/15/18 10:00 06/16/18 09:49 Rocephin 1gm Ivpb (Pre-Docked) IVPB 100 mls/hr DAILY REED Administration Protocol Insulin Aspart 1 vial 06/12/18 16:30 06/16/18 06:42 Novolog Vial Sliding Scale - SQ Not Given ACHS REED Protocol Lactobacillus Acidophilus 1 tab 06/14/18 11:00 06/16/18 09:49 Bacid - PO 1 tab DAILY REED Administration Levothyroxine Sodium 88 mcg 06/13/18 07:00 06/16/18 06:31 Synthroid - PO 88 mcg DAILY@0700 REED Administration Losartan Potassium 50 mg 06/15/18 10:00 06/16/18 09:49 Cozaar - PO 50 mg DAILY REED Administration Multi-Ingredient Lotion 1 applic 06/12/18 13:15 06/16/18 09:50 Eucerin (Large Jar) - TP 1 applic BID REED Administration Ondansetron HCl 4 mg 06/14/18 16:43 06/14/18 17:42 Zofran Injection IVPUSH 4 mg Q6H PRN Administration NAUSEA Pantoprazole Sodium 40 mg 06/14/18 14:30 06/16/18 09:49 Protonix Iv IVPUSH 40 mg DAILY REED Administration Microbiology 06/14/18 10:30 Urine - Urine [place] Urine Culture - Final Escherichia Coli 06/14/18 08:30 Blood - Peripheral Venous Blood Culture - Preliminary NO GROWTH OBTAINED AFTER 48 HOURS, INCUBATION TO CONTINUE FOR 3 DAYS. 06/14/18 08:30 Blood - Peripheral Venous Blood Culture - Preliminary NO GROWTH OBTAINED AFTER 48 HOURS, INCUBATION TO CONTINUE FOR 3 DAYS. 06/14/18 17:14 Urine For Antigen Detection Legionella Antigen - Final negative 06/14/18 17:14 Urine For Antigen Detection Streptococcus pneumoniae Antigen (M - Final negative IMAGING cta of chest: no CT evidence of pulmonary embolism, pulmonary vascular congestion with cardiomegaly, bilateral pleural effusion Head CT (June 14 2018): no acute pathology echo LV WNL pleural effusion severe TR RVSP elevated PVR carotid doppler: extensive atherosclerotic disease with stenosis in the 80%-90% range involving the right ICA and in the 60-79% range involving the left carotid bifurcation ASSESSMENT/PLAN: 1) Cardiovascular afib - Remains rate controlled on telemetry monitoring, continue atenolol and Cardizem. - no AC patient reports she has declined AC in the past and continues to decline AC diastolic congestive heart failure - patient diuresed, 4.9 kg weight loss noted, continue lasix 40mg IV QD - cardiology consulted and following carotid stenosis - carotid Doppler reviewed with vascular Dr. Mari: Patient will require carotid endarterectomy as an outpatient 2) pulm pleural effusions acute respiratory failure with hypercapneia - spo2 99% on 2Lnc, no signs of respiratory distress noted on exam, close monitoring BiPAP as needed - ct scan of chest, notable for Significant right lower lobe effusion, reviewed with lactation specialist Dr. Mccollum patient to be transferred to IR for emergent thoracentesis at [facility] via ALS transport today, discussed with patient's son Asif and patient, all questions answered, verbalized understanding - continue empiric Rocephin, pending sputum culture - Serial chest xrays 2) Heme/onc microcytic anemia - maybe secondary to lower GI bleed, repeat hemoglobin today is trending upward , 2 units of prbc, June 13 2018 iron deficency anemia - iron studies noted continue Iron supplements 3)endo hypothyroidism - continue levothyroxine patient admits to not taking her Synthroid for several months DM - fingersticks achs with regular insulin coverage 4)GI positive stool guiac - continue Protonix, GI Dr. Simpson consulted and following, patient will require endoscopy pending clearance from cardiology start clear liquid diet and GoLYTELY on Tuesday, June 18 2018 5) UTI - urine culture + ecolii, continue Rocephin 6) Neuro Metabolic encephalopathy - Likely secondary to UTI versus hypercapnia, closer to baseline - fall precautions f/e/n - diabetic diet - replete electrolytes prn ppx - hold chemical ac secondary to anemia - mechanical ac only plan discussed with son Asif, qUESTIONS answered, agrees with plan and verbalized understanding dispo: pt requires inpatient admission Visit type - Emergency Visit Emergency Visit: Yes ED Registration Date: 06/12/18 Care time: The patient presented to the Emergency Department on the above date and was hospitalized for further evaluation of their emergent condition. - New Patient This patient is new to me today: No - Critical Care Critical Care patient: No - Discharge Referral Referred to [facility] No
[2018-06-16] MEDS ORDERED: POTASSIUM CHLORIDE TABS 20 MEQ TABLET.ER (FP) PO ONE (11:50)
[2018-06-16] MEDS: DOCUSATE SODIUM 100 MG CAPSULE (FP) PO SCH ×2 (12:07→21:22)
[2018-06-16] MEDS: guaiFENesin 600 MG TABLET.ER (FP) PO SCH ×2 (12:07→21:21)
[2018-06-16] MEDS ORDERED: INSULIN (NOVOLOG) ASPART 100 UNITS/ML 10ML VIAL ONE (12:10)
--- NOTE | 2018-06-16 13:40 | PN ---
Progress Note (short form) - Note Progress Note: PULMONARY CONSULTATION DICTATED 06/17/18 IMP ACUTE ON CHRONIC HYPOXEMIC/HYPERCAPNEIC RESPIRATORY FAILURE ACUTE ON CHRONIC DIASTOLIC HF PULMONARY HYPERTENSION ANEMIA BILATERAL PLEURAL EFFUSIONS R>L ?CHF,?MALIGNANT,INFECTIOUS RUL NODULE ? MALIGNANT ,? INFLAMMATORY H/O BREAST CA S/P R MASTECTOMY PLAN DIAGNOSTIC AND THERAPEUTIC THORACENTESIS LASIX SUPPLEMENTAL O2 TO MAINTAIN O2 SAT 90% OR > INHALED BRONCHODILATORS PRN F/U CHEST CT 3 MONTHS AMBULATORY O2 SAT PRIOR TO DISCHARGE TO DETERMINE IF PT IS A CANDIDATE FOR HOME O2 DR BLEDSOE Problem List - Problems (1) Acute on chronic respiratory failure with hypoxia and hypercapnia Code(s): J96.21 - ACUTE AND CHRONIC RESPIRATORY FAILURE WITH HYPOXIA; J96.22 - ACUTE AND CHRONIC RESPIRATORY FAILURE WITH HYPERCAPNIA (2) Acute hypercapnic respiratory failure Code(s): J96.02 - ACUTE RESPIRATORY FAILURE WITH HYPERCAPNIA (3) Atrial fibrillation Code(s): I48.91 - UNSPECIFIED ATRIAL FIBRILLATION Qualifiers: Atrial fibrillation type: persistent Qualified Code(s): I48.1 - Persistent atrial fibrillation (4) Hypothyroidism Code(s): E03.9 - HYPOTHYROIDISM, UNSPECIFIED Qualifiers: Hypothyroidism type: unspecified Qualified Code(s): E03.9 - Hypothyroidism , unspecified (5) Pleural effusion Code(s): J90 - PLEURAL EFFUSION, NOT ELSEWHERE CLASSIFIED (6) Respiratory distress Code(s): R06.03 - ACUTE RESPIRATORY DISTRESS (7) Pulmonary hypertension Code(s): I27.20 - PULMONARY HYPERTENSION, UNSPECIFIED (8) Acute on chronic diastolic heart failure Code(s): I50.33 - ACUTE ON CHRONIC DIASTOLIC (CONGESTIVE) HEART FAILURE
--- NOTE | 2018-06-16 14:49 | PN ---
Progress Note, Physician History of Present Illness: Dyspnea improved, now on NC. Seen in IR prior to right thoracentesis. - Current Medication List Current Medications: Active Medications Albuterol/Ipratropium (Duoneb -) 1 amp NEB QIDR [facility] Last Admin: 06/16/18 12:07 Dose: 1 amp Atenolol (Tenormin -) 50 mg PO DAILY [facility] Last Admin: 06/16/18 09:49 Dose: 50 mg Diltiazem HCl (Cardizem Cd -) 180 mg PO DAILY [facility] Last Admin: 06/16/18 09:49 Dose: 180 mg Docusate Sodium (Colace -) 100 mg PO BID [facility] Last Admin: 06/16/18 12:07 Dose: 100 mg Ferrous Sulfate (Feosol -) 325 mg PO BID [facility] Last Admin: 06/16/18 09:49 Dose: 325 mg Furosemide (Lasix Injection -) 40 mg IVPUSH DAILY [facility] Last Admin: 06/16/18 09:49 Dose: 40 mg Guaifenesin (Mucinex -) 600 mg PO BID [facility] Last Admin: 06/16/18 12:07 Dose: 600 mg Ceftriaxone Sodium (Rocephin 1gm Ivpb (Pre-Docked)) 1 gm in 50 mls @ 100 mls/ hr IVPB DAILY [facility]; Protocol Last Admin: 06/16/18 09:49 Dose: 100 mls/hr Insulin Aspart (Novolog Vial Sliding Scale -) 1 vial SQ ACHS [facility]; Protocol Last Admin: 06/16/18 12:07 Dose: 2 units Lactobacillus Acidophilus (Bacid -) 1 tab PO DAILY [facility] Last Admin: 06/16/18 09:49 Dose: 1 tab Levothyroxine Sodium (Synthroid -) 88 mcg PO DAILY@0700 [facility] Last Admin: 06/16/18 06:31 Dose: 88 mcg Losartan Potassium (Cozaar -) 50 mg PO DAILY [facility] Last Admin: 06/16/18 09:49 Dose: 50 mg Multi-Ingredient Lotion (Eucerin (Large Jar) -) 1 applic TP BID [facility] Last Admin: 06/16/18 09:50 Dose: 1 applic Ondansetron HCl (Zofran Injection) 4 mg IVPUSH Q6H PRN PRN Reason: NAUSEA Last Admin: 06/14/18 17:42 Dose: 4 mg Pantoprazole Sodium (Protonix Iv) 40 mg IVPUSH DAILY REED Last Admin: 06/16/18 09:49 Dose: 40 mg - Objective Vital Signs: Vital Signs Temperature 97.8 F 06/16/18 10:00 Pulse Rate 88 06/16/18 10:00 Respiratory Rate 18 06/16/18 10:00 Blood Pressure 127/51 06/16/18 10:00 O2 Sat by Pulse Oximetry (%) 96 06/16/18 09:00 Constitutional: Yes: No Distress, Calm, Thin Neck: Yes: Supple Cardiovascular: Yes: Pulse Irregular Respiratory: Yes: Regular, Diminished, On Nasal O2 Gastrointestinal: Yes: Normal Bowel Sounds, Soft Edema: No Labs: CBC, BMP 06/16/18 07:15 06/16/18 07:15 INR, PTT INR 1.27 (0.82-1.09) H 06/12/18 07:47 - ....Imaging Chest X-ray: Report Reviewed (Improvement) Ultrasound: Report Reviewed (LILIA 80-99%, left IC bifurcation 60-70%) Problem List - Problems (1) Acute on chronic diastolic heart failure Code(s): I50.33 - ACUTE ON CHRONIC DIASTOLIC (CONGESTIVE) HEART FAILURE (2) Atrial fibrillation Code(s): I48.91 - UNSPECIFIED ATRIAL FIBRILLATION Qualifiers: Atrial fibrillation type: persistent Qualified Code(s): I48.1 - Persistent atrial fibrillation (3) Pleural effusion Code(s): J90 - PLEURAL EFFUSION, NOT ELSEWHERE CLASSIFIED (4) Acute hypercapnic respiratory failure Code(s): J96.02 - ACUTE RESPIRATORY FAILURE WITH HYPERCAPNIA (5) Hypothyroidism Code(s): E03.9 - HYPOTHYROIDISM, UNSPECIFIED Qualifiers: Hypothyroidism type: unspecified Qualified Code(s): E03.9 - Hypothyroidism , unspecified Assessment/Plan cta of chest: no CT evidence of pulmonary embolism, pulmonary vascular congestion with cardiomegaly, bilateral pleural effusion Head CT (June 14 2018): no acute pathology echo LV WNL pleural effusion severe TR RVSP elevated PVR 1. Acute hypercapneic respiratory failure referable to 2. Acute on chronic diastolic heart failure, pulm HTN with pleural effusions planned for thoracentesis 3. Persistent afib, not on a/c as patient has declined in past 4. Hypothyroidism 5. Microcytic anemia 6. Givens-sensitive e. coli UTI 7. Carotid stenosis R>L planned for right CEA 8. Hyponatremia P:1. Lasix 40 IV qd with monitor diuretic response, renal function and electolytes, replete K 2. Readdress anticoagulation indications with patient, placed on ASA 81 qd in interim 3. F/u thoracentesis right effusion fluid studies 4. Continue atenolol 50 qd, Cardizem CD 180 qd, losartan 50 qd 5. BD, empiric abx, bipap and O2 as needed
[2018-06-16 15:54] LABS: GLUCOSE,PLEURAL FLUID 145.07; TOTAL PROTEIN,PLEURAL FLUID 2.496
--- NOTE | 2018-06-16 16:15 | CONS ---
PULMONARY CONSULTATION DATE OF CONSULTATION: 06/16/2018 REFERRING PHYSICIAN: Lanny Ly NP HISTORY OF PRESENT ILLNESS: The patient is an 87-year-old, white female with a past medical history that includes atrial fibrillation not on anticoagulation, history of CVA, history of breast CA, status post right mastectomy years ago, hypothyroidism, iron-deficiency anemia, diabetes, history of smoking many years ago, admitted to [facility] on June 12, 2018, secondary to shortness of breath and weakness. Apparently, the patient has been having progressive weakness and shortness of breath for the past few months. She was evaluated by Dr. Painting prior to admission, and was noted to be anemic, at which time she was transfused 1 unit of packed red blood cells without complications. Apparently, prior to admission, she started developing increasing shortness of breath and dyspnea and weakness 24 hours prior to admission. Patient denied any chest pain, nausea, vomiting, diaphoresis; denied any hemoptysis. In the emergency room, the patient had a CTA of the chest performed, which revealed pulmonary vascular congestion, cardiomegaly, bilateral pleural effusions with right greater than the left with bibasilar compressive atelectasis. She was noted on admission to have a hemoglobin of 7.5 g. She was admitted to the floor. She was transfused. Of note is the patient was evaluated by Dr. Raudel Carrizales for Cardiology consultation, as well as Dr. Saini from Infectious Disease who felt that the patient possibly had pneumonia for which she was placed on antibiotic therapy. Patient is currently awake, alert, in no acute distress. She denies any cough or hemoptysis. She denies any fevers or chills. PAST MEDICAL HISTORY: Again, includes breast CA, status post right mastectomy, atrial fibrillation not on AC, CVA, hypothyroidism, iron-deficiency anemia, and diabetes. SOCIAL HISTORY: History of tobacco use; quit years ago. 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 CURRENT MEDICATIONS: Include Zofran, Cozaar, Rocephin, Bacid, Eucerin, DuoNeb, Tenormin, Cardizem, Colace, Mucinex, NovoLog, Feosol, Lasix IV push, Protonix, and Synthroid. PHYSICAL EXAMINATION: General: The patient is an elderly, white female, thin, well-developed, awake, alert. In no acute distress, although I think her O2 saturation was 87% on room air, 94% on 3 liters. Vital signs: Her blood pressure is 127/51. HEENT: Exam is normocephalic, atraumatic. Neck: Supple without any adenopathy. Heart: Irregular regular. Normal S1 and S2. Chest: Diminished breath sounds bilaterally at the bases. Abdomen: Soft. Bowel sounds are positive. Extremities: No cyanosis, edema. LABORATORIES: WBC is 5.9, hemoglobin 9.0, and hematocrit 32.6 with a platelet count of 318,000. INR is 1.27. Blood gas: PH of 7.44, PCO2 of 56, a PO2 of 78, a bicarbonate of 37, and saturation of 96.9; that was on unknown quantity of oxygen. Initial was 7.40, 61, PCO2 of 111, bicarbonate of 36, and saturation 98. Chemistry: BUN 12, creatinine 0.6. CTA of the chest again revealed bilateral pleural effusions right side greater than left. There is a 1-cm, irregular nodule on the right upper lobe. No infiltrates were appreciated. Multi-chamber cardiomegaly noted. Echocardiogram revealed moderate pulmonary hypertension with a right ventricular systolic pressure of 30 to 40. Left ventricular size and thickness are normal. Right ventricular ejection fraction is normal. There is [id number] mitral regurgitation and severe tricuspid regurgitation. IMPRESSION: 1. Acute on chronic hypoxic respiratory failure. 2. Likely congestive heart failure. 3. Moderate pulmonary hypertension. 4. Possible underlying chronic obstructive pulmonary disease. 5. Bilateral pleural effusions, etiology to be determined. Cannot exclude possible secondary to CHF. Cannot exclude possible malignant. 6. History of breast CA. 7. Anemia 8. RUL nodule PLAN: Diagnostic thoracentesis. Supplemental O2. Check O2 saturation at rest post exercise prior to discharge to determine whether the patient is a candidate for home O2. PFTs, which the patient is able to perform as an outpatient. Follow up chest x-rays, as well as chest CT to document stability of right upper lobe nodule. . Outpatient follow up of pulmonary nodule. If any significant interval growth on f/u chest ct, consider needle biopsy and/or PET scan. Continue Lasix, inhaled bronchodilators. ZAC BLEDSOE M.D. [id number] MTDD
[2018-06-16 17:23] LABS: PLEURAL FLUID APPEARANCE CLEAR; PLEURAL FLUID COLOR YELLOW
[2018-06-17] MEDS: ALBUTEROL SO4 2.5/IPRATROPIUM 0.5 INH SOL 3 ML VIAL.NEB. NEB SCH ×4 (06:36→18:19)
[2018-06-17] MEDS: INSULIN SLIDING SCALE (NOVOLOG) 1 VIAL SQ SCH ×4 (06:36→22:10)
[2018-06-17] MEDS: LEVOTHYROXINE NA 88 MCG TABLET (FP) PO SCH (06:36)
--- NOTE | 2018-06-17 06:59 | PN ---
Progress Note, Physician History of Present Illness: pulmonary alert,no distress,s/p thoracentesis tolerated procedure well. pleural fluid c/w transudate - Current Medication List Current Medications: Active Medications Albuterol/Ipratropium (Duoneb -) 1 amp NEB QIDR [facility] Last Admin: 06/17/18 06:36 Dose: 1 amp Aspirin (Asa -) 81 mg PO DAILY [facility] Atenolol (Tenormin -) 50 mg PO DAILY [facility] Last Admin: 06/16/18 09:49 Dose: 50 mg Diltiazem HCl (Cardizem Cd -) 180 mg PO DAILY [facility] Last Admin: 06/16/18 09:49 Dose: 180 mg Docusate Sodium (Colace -) 100 mg PO BID [facility] Last Admin: 06/16/18 21:22 Dose: 100 mg Ferrous Sulfate (Feosol -) 325 mg PO BID [facility] Last Admin: 06/16/18 21:22 Dose: 325 mg Furosemide (Lasix Injection -) 40 mg IVPUSH DAILY [facility] Last Admin: 06/16/18 09:49 Dose: 40 mg Guaifenesin (Mucinex -) 600 mg PO BID [facility] Last Admin: 06/16/18 21:21 Dose: 600 mg Ceftriaxone Sodium (Rocephin 1gm Ivpb (Pre-Docked)) 1 gm in 50 mls @ 100 mls/ hr IVPB DAILY [facility]; Protocol Last Admin: 06/16/18 09:49 Dose: 100 mls/hr Insulin Aspart (Novolog Vial Sliding Scale -) 1 vial SQ ACHS [facility]; Protocol Last Admin: 06/17/18 06:36 Dose: Not Given Lactobacillus Acidophilus (Bacid -) 1 tab PO DAILY [facility] Last Admin: 06/16/18 09:49 Dose: 1 tab Levothyroxine Sodium (Synthroid -) 88 mcg PO DAILY@0700 [facility] Last Admin: 06/17/18 06:36 Dose: 88 mcg Losartan Potassium (Cozaar -) 50 mg PO DAILY [facility] Last Admin: 06/16/18 09:49 Dose: 50 mg Multi-Ingredient Lotion (Eucerin (Large Jar) -) 1 applic TP BID [facility] Last Admin: 06/16/18 21:22 Dose: 1 applic Ondansetron HCl (Zofran Injection) 4 mg IVPUSH Q6H PRN PRN Reason: NAUSEA Last Admin: 06/14/18 17:42 Dose: 4 mg Pantoprazole Sodium (Protonix Iv) 40 mg IVPUSH DAILY [facility] Last Admin: 06/16/18 09:49 Dose: 40 mg - Objective Vital Signs: Vital Signs Temperature 99.2 F 06/16/18 22:00 Pulse Rate 82 06/17/18 02:00 Respiratory Rate 20 06/17/18 02:00 Blood Pressure 120/52 06/16/18 22:00 O2 Sat by Pulse Oximetry (%) 96 06/16/18 20:07 Constitutional: Yes: Well Nourished, Calm Eyes: Yes: WNL HENT: Yes: WNL Neck: Yes: WNL Cardiovascular: Yes: Pulse Irregular, S1, S2 Respiratory: Yes: Rales (bilateral rales) Gastrointestinal: Yes: Normal Bowel Sounds, Soft Extremities: Yes: WNL Edema: No Labs: CBC, BMP Laboratory Tests 06/16/18 15:00 Pleural Fluid Source Right pleural Pleural Color Yellow Pleural Appearance Clear Pleural WBC 611 Pleural RBC 1,490 Pleural Total Protein 2.496 Pleural Albumin 1 Pleural LDH 77.2 Pleural Glucose 145.07 Pleural Amylase 22.89 Pleural Triglycerides 14 Problem List - Problems (1) Acute on chronic respiratory failure with hypoxia and hypercapnia Code(s): J96.21 - ACUTE AND CHRONIC RESPIRATORY FAILURE WITH HYPOXIA; J96.22 - ACUTE AND CHRONIC RESPIRATORY FAILURE WITH HYPERCAPNIA (2) Acute hypercapnic respiratory failure Code(s): J96.02 - ACUTE RESPIRATORY FAILURE WITH HYPERCAPNIA (3) Atrial fibrillation Code(s): I48.91 - UNSPECIFIED ATRIAL FIBRILLATION Qualifiers: Atrial fibrillation type: persistent Qualified Code(s): I48.1 - Persistent atrial fibrillation (4) Hypothyroidism Code(s): E03.9 - HYPOTHYROIDISM, UNSPECIFIED Qualifiers: Hypothyroidism type: unspecified Qualified Code(s): E03.9 - Hypothyroidism , unspecified (5) Pleural effusion Code(s): J90 - PLEURAL EFFUSION, NOT ELSEWHERE CLASSIFIED (6) Respiratory distress Code(s): R06.03 - ACUTE RESPIRATORY DISTRESS (7) Pulmonary hypertension Code(s): I27.20 - PULMONARY HYPERTENSION, UNSPECIFIED (8) Acute on chronic diastolic heart failure Code(s): I50.33 - ACUTE ON CHRONIC DIASTOLIC (CONGESTIVE) HEART FAILURE Assessment/Plan IMP ACUTE ON CHRONIC HYPOXEMIC/HYPERCAPNEIC RESPIRATORY FAILURE IMPROVING ACUTE ON CHRONIC DIASTOLIC HF IMPROVING PULMONARY HYPERTENSION ANEMIA BILATERAL PLEURAL EFFUSIONS TRANSUDATE RUL NODULE ? MALIGNANT ,? INFLAMMATORY H/O BREAST CA S/P R MASTECTOMY PLAN LASIX SUPPLEMENTAL O2 TO MAINTAIN O2 SAT 90% OR > INHALED BRONCHODILATORS PRN F/U CHEST CT 3 MONTHS AMBULATORY O2 SAT PRIOR TO DISCHARGE TO DETERMINE IF PT IS A CANDIDATE FOR HOME O2 DR BLEDSOE Problem List - Problems (1) Acute on chronic respiratory failure with hypoxia and hypercapnia Code(s): J96.21 - ACUTE AND CHRONIC RESPIRATORY FAILURE WITH HYPOXIA; J96.22 - ACUTE AND CHRONIC RESPIRATORY FAILURE WITH HYPERCAPNIA (2) Acute hypercapnic respiratory failure Code(s): J96.02 - ACUTE RESPIRATORY FAILURE WITH HYPERCAPNIA (3) Atrial fibrillation Code(s): I48.91 - UNSPECIFIED ATRIAL FIBRILLATION Qualifiers: Atrial fibrillation type: persistent Qualified Code(s): I48.1 - Persistent atrial fibrillation (4) Hypothyroidism Code(s): E03.9 - HYPOTHYROIDISM, UNSPECIFIED Qualifiers: Hypothyroidism type: unspecified Qualified Code(s): E03.9 - Hypothyroidism , unspecified (5) Pleural effusion Code(s): J90 - PLEURAL EFFUSION, NOT ELSEWHERE CLASSIFIED (6) Respiratory distress Code(s): R06.03 - ACUTE RESPIRATORY DISTRESS (7) Pulmonary hypertension Code(s): I27.20 - PULMONARY HYPERTENSION, UNSPECIFIED (8) Acute on chronic diastolic heart failure Code(s): I50.33 - ACUTE ON CHRONIC DIASTOLIC (CONGESTIVE) HEART FAILURE
[2018-06-17] MEDS: LACTOBACILLUS ACIDOPHILUS 1 TABLET PO SCH (09:34)
[2018-06-17] MEDS: ASPIRIN 81 MG CHEWABLE TABLETS PO SCH (09:34)
[2018-06-17] MEDS: ATENOLOL 50 MG TABLET (FP) PO SCH (09:35)
[2018-06-17] MEDS: DOCUSATE SODIUM 100 MG CAPSULE (FP) PO SCH ×2 (09:35→22:05)
[2018-06-17] MEDS: FERROUS SO4 325 MG TABLET (FP) PO SCH ×2 (09:36→22:06)
[2018-06-17] MEDS: LOSARTAN POTASSIUM 50 MG TABLET (FP) PO SCH (09:36)
[2018-06-17] MEDS: FUROSEMIDE 40 MG/4 ML INJECTABLE VIAL IVPUSH SCH (09:37)
[2018-06-17] MEDS: guaiFENesin 600 MG TABLET.ER (FP) PO SCH ×2 (09:37→22:06)
[2018-06-17] MEDS: CEFTRIAXONE 1 GM/50 ML BAG IVPB SCH (09:37)
[2018-06-17] MEDS: MINERAL OIL/PETROLAT/WATER TOPICAL CREAM 454 GM JAR TP SCH ×2 (10:00→22:06)
[2018-06-17] MEDS: PANTOPRAZOLE SODIUM 40 MG VIAL IVPUSH SCH (10:05)
--- NOTE | 2018-06-17 10:12 | PN ---
Physical Exam: SUBJECTIVE: Patient seen and examined,no complains at this time, resting comfortably in bed. OBJECTIVE: Vital Signs Period Temp Pulse Resp BP Sys/De La O Pulse Ox Last 24 Hr 98 F-99.2 F 82-102 18-20 106-125/40-71 91-96 GENERAL: The patient is awake, alert,forgetful, in no acute distress. HEAD: Normal with no signs of trauma. EYES: PERRL, extraocular movements intact, sclera anicteric, conjunctiva clear. No ptosis. LUNGS: Breath sounds equal, mild rales/ronchi, no wheezes, no accessory muscle use. HEART: Irregular without murmur, rub or gallop. ABDOMEN: Soft, nontender, nondistended, normoactive bowel sounds, no guarding, no rebound, no hepatosplenomegaly, no masses. EXTREMITIES: 2+ pulses, warm, well-perfused, no edema. NEUROLOGICAL: Cranial nerves II through XII grossly intact. Normal speech, gait not observed, forgetful. PSYCH: Normal mood, normal affect. SKIN: Warm, dry, normal turgor, no rashes or lesions noted Laboratory Results - last 24 hr 06/13/18 06/16/18 06/16/18 07:37 12:03 15:00 POC Glucometer 179 Pleural Fluid Source Right pleural Pleural Color Yellow Pleural Appearance Clear Pleural WBC 611 Pleural RBC 1,490 Pleural Total Protein 2.496 Pleural Albumin 1 Pleural LDH 77.2 Pleural Glucose 145.07 Pleural Amylase 22.89 Pleural Triglycerides 14 Blood Type O POSITIVE Antibody Screen Negative Crossmatch See Detail 06/16/18 06/16/18 06/17/18 17:00 21:45 06:21 POC Glucometer 161 165 132 Pleural Fluid Source Pleural Color Pleural Appearance Pleural WBC Pleural RBC Pleural Total Protein Pleural Albumin Pleural LDH Pleural Glucose Pleural Amylase Pleural Triglycerides Blood Type Antibody Screen Crossmatch Active Medications Generic Name Dose Route Start Last Admin Trade Name Freq PRN Reason Stop Dose Admin Albuterol/Ipratropium 1 amp 06/14/18 08:33 06/17/18 06:36 Duoneb - NEB 1 amp QIDR REED Administration Aspirin 81 mg 06/17/18 10:00 Asa - PO DAILY REED Atenolol 50 mg 06/13/18 10:00 06/16/18 09:49 Tenormin - PO 50 mg DAILY REED Administration Diltiazem HCl 180 mg 06/12/18 21:43 06/16/18 09:49 Cardizem Cd - PO 180 mg DAILY REED Administration Docusate Sodium 100 mg 06/16/18 12:00 06/16/18 21:22 Colace - PO 100 mg BID REED Administration Ferrous Sulfate 325 mg 06/14/18 11:30 06/16/18 21:22 Feosol - PO 325 mg BID REED Administration Furosemide 40 mg 06/16/18 10:00 06/16/18 09:49 Lasix Injection - IVPUSH 40 mg DAILY REED Administration Guaifenesin 600 mg 06/16/18 12:00 06/16/18 21:21 Mucinex - PO 600 mg BID REED Administration Ceftriaxone Sodium 1 gm in 50 mls @ 100 mls/hr 06/15/18 10:00 06/16/18 09:49 Rocephin 1gm Ivpb (Pre-Docked) IVPB 100 mls/hr DAILY REED Administration Protocol Insulin Aspart 1 vial 06/12/18 16:30 06/17/18 06:36 Novolog Vial Sliding Scale - SQ Not Given ACHS REED Protocol Lactobacillus Acidophilus 1 tab 06/14/18 11:00 06/16/18 09:49 Bacid - PO 1 tab DAILY REED Administration Levothyroxine Sodium 88 mcg 06/13/18 07:00 06/17/18 06:36 Synthroid - PO 88 mcg DAILY@0700 REED Administration Losartan Potassium 50 mg 06/15/18 10:00 06/16/18 09:49 Cozaar - PO 50 mg DAILY REED Administration Multi-Ingredient Lotion 1 applic 06/12/18 13:15 06/16/18 21:22 Eucerin (Large Jar) - TP 1 applic BID REED Administration Ondansetron HCl 4 mg 06/14/18 16:43 06/14/18 17:42 Zofran Injection IVPUSH 4 mg Q6H PRN Administration NAUSEA Pantoprazole Sodium 40 mg 06/14/18 14:30 06/16/18 09:49 Protonix Iv IVPUSH 40 mg DAILY REED Administration 06/14/18 10:30 Urine - Urine [place] Urine Culture - Final Escherichia Coli 06/14/18 08:30 Blood - Peripheral Venous Blood Culture - Preliminary NO GROWTH OBTAINED AFTER 48 HOURS, INCUBATION TO CONTINUE FOR 3 DAYS. 06/14/18 08:30 Blood - Peripheral Venous Blood Culture - Preliminary NO GROWTH OBTAINED AFTER 48 HOURS, INCUBATION TO CONTINUE FOR 3 DAYS. 06/14/18 17:14 Urine For Antigen Detection Legionella Antigen - Final negative 06/14/18 17:14 Urine For Antigen Detection Streptococcus pneumoniae Antigen (M - Final negative IMAGING CTA of chest: No CT evidence of pulmonary embolism, pulmonary vascular congestion with cardiomegaly, bilateral pleural effusion Head CT (June 14 2018): no acute pathology echo LV WNL pleural effusion severe TR RVSP elevated PVR carotid doppler: extensive atherosclerotic disease with stenosis in the 80%-90% range involving the right ICA and in the 60-79% range involving the left carotid bifurcation ASSESSMENT/PLAN: patient is a 87-year-old female with a past medical history of A. fib (no AC), CVA, breast cancer,hypothyroidism, iron deficiency anemia, and DM. patient was admitted for acute congestive heart failure and symptomatic anemia *Acute respiratory failure with hypercapnia -spo2 99% on 2L NC - no signs of respiratory distress - BiPAP as needed - ct scan of chest, notable for Significant right lower lobe effusion -pulmonary following, f/u CT in 3 months - s/p thoracentesis - cultures pending - cxr: no pneumothorax - will continue empiric Rocephin, pending sputum culture - Serial chest xrays - will on broncho INH PRN - check ambulatory O2 sat prior to DC to determine if pt needs O2 at home. *Diastolic congestive heart failure - patient diuresed, 4.9 kg weight loss noted - continue lasix 40mg IV QD - cardiology following - daily weight monitoring - monitor I&O's - BNP 291 * A- Fib- HR controlled -will continue atenolol and Cardizem. - no AC patient reports she has declined AC in the past and continues to decline AC - will cont on ASA 81mg *Carotid stenosis - carotid Doppler reviewed with vascular Dr. Mari: Patient will require carotid endarterectomy as an outpatient *Anemia -likley secondary to lower GI bleed - stool OB positive - s/p 2 units of blood, post transfusion H/H stable - low Fe- started on Iron supplements - continue Protonix, -GI Dr. Simpson consulted and following -patient will require endoscopy pending clearance from cardiology start clear liquid diet and GoLYTELY on Tuesday, June 18 2018 - will f/u on CBC *Hypothyroidism -patient admits to not taking her Synthroid for several months - abnormal TSH, will check free T4 - continue levothyroxine - rec out pt f/u on TFT's *DM - fingersticks achs with regular insulin coverage *UTI - urine culture + ecolii, continue Rocephin - afebrrile with no leukocytosis *Metabolic encephalopathy - Likely secondary to UTI versus hypercapnia, - fall precautions - PT eval * Hyperemia - NA 132 - will hold of fluid in view of CHF and monitor *f/e/n - diabetic diet - replete electrolytes prn ppx - hold chemical ac secondary to anemia - mechanical ac only Dispo:Requires Inpatient Care. Visit type - Emergency Visit Emergency Visit: Yes ED Registration Date: 06/12/18 Care time: The patient presented to the Emergency Department on the above date and was hospitalized for further evaluation of their emergent condition. - New Patient This patient is new to me today: Yes Date on this admission: 06/17/18 - Critical Care Critical Care patient: No
[2018-06-17 11:14] LABS: BASO % 0.2 % (0-2.0); HEMATOCRIT 32.2 % (32.4-45.2); HEMOGLOBIN 10.3 GM/dl (10.7-15.3); LYMPH % 11.2 % (8-40); MCHC 31.8 g/dl (32.0-36.0); MEAN CELL VOLUME 72.2 fl (80-96); MEAN PLT VOLUME 8.6 fl (7.5-11.1); MONO % 10.9 % (3.8-10.2); NEUT % 74.7 % (42.8-82.8); PLATELET COUNT 323 K/MM3 (134-434); RBC 4.47 M/mm3 (3.60-5.2); WHITE BLOOD COUNT 7.5 K/mm3 (4.0-10.8)
[2018-06-17 11:30] LABS: ANION GAP 5 (8-16); BLOOD UREA NITROGEN 17 mg/dl (7-18); CALCIUM 7.9 mg/dl (8.4-10.2); CHLORIDE 86 mmol/L (98-107); CO2 41 mmol/L (22-28); CREATININE 0.6 mg/dl (0.6-1.3); GLUCOSE,RANDOM 124 mg/dl (74-106); POTASSIUM 3.9 mmol/L (3.5-5.1); SODIUM 132 mmol/L (136-145)
--- NOTE | 2018-06-17 14:13 | PN ---
Progress Note, Physician History of Present Illness: Dyspnea improved, now on NC. Post right thoracentesis->transudative fluid. - Current Medication List Current Medications: Active Medications Albuterol/Ipratropium (Duoneb -) 1 amp NEB QIDR [facility] Last Admin: 06/17/18 12:38 Dose: 1 amp Aspirin (Asa -) 81 mg PO DAILY [facility] Last Admin: 06/17/18 09:34 Dose: 81 mg Atenolol (Tenormin -) 50 mg PO DAILY [facility] Last Admin: 06/17/18 09:35 Dose: 50 mg Diltiazem HCl (Cardizem Cd -) 180 mg PO DAILY [facility] Last Admin: 06/17/18 09:35 Dose: 180 mg Docusate Sodium (Colace -) 100 mg PO BID [facility] Last Admin: 06/17/18 09:35 Dose: 100 mg Ferrous Sulfate (Feosol -) 325 mg PO BID [facility] Last Admin: 06/17/18 09:36 Dose: 325 mg Furosemide (Lasix Injection -) 40 mg IVPUSH DAILY [facility] Last Admin: 06/17/18 09:37 Dose: 40 mg Guaifenesin (Mucinex -) 600 mg PO BID [facility] Last Admin: 06/17/18 09:37 Dose: 600 mg Ceftriaxone Sodium (Rocephin 1gm Ivpb (Pre-Docked)) 1 gm in 50 mls @ 100 mls/ hr IVPB DAILY [facility]; Protocol Last Admin: 06/17/18 09:37 Dose: 100 mls/hr Insulin Aspart (Novolog Vial Sliding Scale -) 1 vial SQ ACHS [facility]; Protocol Last Admin: 06/17/18 06:36 Dose: Not Given Lactobacillus Acidophilus (Bacid -) 1 tab PO DAILY [facility] Last Admin: 06/17/18 09:34 Dose: 1 tab Levothyroxine Sodium (Synthroid -) 88 mcg PO DAILY@0700 [facility] Last Admin: 06/17/18 06:36 Dose: 88 mcg Losartan Potassium (Cozaar -) 50 mg PO DAILY [facility] Last Admin: 06/17/18 09:36 Dose: 50 mg Multi-Ingredient Lotion (Eucerin (Large Jar) -) 1 applic TP BID [facility] Last Admin: 06/17/18 10:00 Dose: 1 applic Ondansetron HCl (Zofran Injection) 4 mg IVPUSH Q6H PRN PRN Reason: NAUSEA Last Admin: 06/14/18 17:42 Dose: 4 mg Pantoprazole Sodium (Protonix Iv) 40 mg IVPUSH DAILY [facility] Last Admin: 06/17/18 10:05 Dose: 40 mg - Objective Vital Signs: Vital Signs Temperature 99.0 F 06/17/18 06:00 Pulse Rate 89 06/17/18 06:00 Respiratory Rate 18 06/17/18 09:00 Blood Pressure 117/47 06/17/18 06:00 O2 Sat by Pulse Oximetry (%) 91 L 06/17/18 09:00 Constitutional: Yes: No Distress, Calm, Thin Neck: Yes: Supple Cardiovascular: Yes: Regular Rate and Rhythm Respiratory: Yes: Regular, Diminished, On Nasal O2 Gastrointestinal: Yes: Normal Bowel Sounds, Soft Edema: No Labs: CBC, BMP 06/17/18 10:45 06/17/18 10:45 INR, PTT INR 1.27 (0.82-1.09) H 06/12/18 07:47 - ....Imaging Chest X-ray: Report Reviewed (Improved right effusion without PTX post thoracentesis) Problem List - Problems (1) Acute on chronic diastolic heart failure Code(s): I50.33 - ACUTE ON CHRONIC DIASTOLIC (CONGESTIVE) HEART FAILURE (2) Atrial fibrillation Code(s): I48.91 - UNSPECIFIED ATRIAL FIBRILLATION Qualifiers: Atrial fibrillation type: persistent Qualified Code(s): I48.1 - Persistent atrial fibrillation (3) Pleural effusion Code(s): J90 - PLEURAL EFFUSION, NOT ELSEWHERE CLASSIFIED (4) Acute hypercapnic respiratory failure Code(s): J96.02 - ACUTE RESPIRATORY FAILURE WITH HYPERCAPNIA (5) Hypothyroidism Code(s): E03.9 - HYPOTHYROIDISM, UNSPECIFIED Qualifiers: Hypothyroidism type: unspecified Qualified Code(s): E03.9 - Hypothyroidism , unspecified Assessment/Plan cta of chest: no CT evidence of pulmonary embolism, pulmonary vascular congestion with cardiomegaly, bilateral pleural effusion Head CT (June 14 2018): no acute pathology echo LV WNL pleural effusion severe TR RVSP elevated PVR 1. Acute hypercapneic respiratory failure referable to 2. Acute on chronic diastolic heart failure, pulm HTN with pleural effusions post right thoracentesis->transudate 3. Persistent afib, not on a/c as patient has declined in past 4. Hypothyroidism 5. Microcytic anemia 6. Givens-sensitive e. coli UTI 7. Carotid stenosis R>L planned for right CEA 8. Hyponatremia P:1. Oral diuretics with monitor diuretic response, renal function and electolytes, replete K 2. Readdress anticoagulation indications with patient, placed on ASA 81 qd in interim 3. F/u thoracentesis right effusion fluid studies 4. Continue atenolol 50 qd, Cardizem CD 180 qd, losartan 50 qd 5. BD, empiric abx, bipap and O2 as needed, ambulatory saO2 to determine home O2 eligibility
[2018-06-18] MEDS: ALBUTEROL SO4 2.5/IPRATROPIUM 0.5 INH SOL 3 ML VIAL.NEB. NEB SCH ×4 (00:55→18:00)
[2018-06-18] MEDS ORDERED: PEG3350/SOD SULF,BICARB,CL/KCL 4,000 ML SOLN.RECON PO ONE (06:00)
[2018-06-18] MEDS: INSULIN SLIDING SCALE (NOVOLOG) 1 VIAL SQ SCH ×4 (06:51→22:13)
[2018-06-18] MEDS: LEVOTHYROXINE NA 88 MCG TABLET (FP) PO SCH (06:52)
[2018-06-18] MEDS: FUROSEMIDE 40 MG TABLET (FP) PO SCH (09:04)
[2018-06-18] MEDS: ASPIRIN 81 MG CHEWABLE TABLETS PO SCH (09:05)
[2018-06-18] MEDS: CEFTRIAXONE 1 GM/50 ML BAG IVPB SCH (09:06)
[2018-06-18] MEDS: guaiFENesin 600 MG TABLET.ER (FP) PO SCH ×2 (09:06→22:10)
[2018-06-18] MEDS: ATENOLOL 50 MG TABLET (FP) PO SCH (09:06)
[2018-06-18] MEDS: LACTOBACILLUS ACIDOPHILUS 1 TABLET PO SCH (09:06)
[2018-06-18] MEDS: LOSARTAN POTASSIUM 50 MG TABLET (FP) PO SCH (09:06)
[2018-06-18] MEDS: DOCUSATE SODIUM 100 MG CAPSULE (FP) PO SCH ×2 (09:06→22:10)
[2018-06-18] MEDS: FERROUS SO4 325 MG TABLET (FP) PO SCH ×2 (09:06→22:10)
[2018-06-18] MEDS: MINERAL OIL/PETROLAT/WATER TOPICAL CREAM 454 GM JAR TP SCH ×2 (09:07→22:10)
[2018-06-18 09:19] LABS: ANION GAP 7 (8-16); BLOOD UREA NITROGEN 15 mg/dl (7-18); CALCIUM 7.7 mg/dl (8.4-10.2); CHLORIDE 86 mmol/L (98-107); CO2 38 mmol/L (22-28); GLUCOSE,RANDOM 86 mg/dl (74-106); MAGNESIUM 1.9 mg/dL (1.8-2.4); POTASSIUM 3.8 mmol/L (3.5-5.1); SODIUM 131 mmol/L (136-145)
[2018-06-18 09:41] LABS: CREATININE < 0.6 mg/dl (0.6-1.3)
[2018-06-18] MEDS: PANTOPRAZOLE SODIUM 40 MG VIAL IVPUSH SCH (09:45)
--- NOTE | 2018-06-18 10:09 | PN ---
Physical Exam: SUBJECTIVE: Patient seen and examined at bedside. Denies pain. OBJECTIVE: Vital Signs Period Temp Pulse Resp BP Sys/De La O Pulse Ox Last 24 Hr 97.9 F-99.0 F 84-97 17-18 95-114/38-64 91-96 GENERAL: The patient is sleeping but easily arousable. In no acute distress. LUNGS: Diffuse rhonchi HEART: Irregular, S1, S2 ABDOMEN: Soft, nontender, nondistended EXTREMITIES: 2+ pulses, warm, well-perfused, no edema. NEUROLOGICAL: Cranial nerves II through XII grossly intact Laboratory Results - last 24 hr 06/17/18 06/17/18 06/17/18 10:45 10:45 10:45 WBC 7.5 RBC 4.47 Hgb 10.3 L Hct 32.2 L MCV 72.2 L MCH 23.0 L MCHC 31.8 L RDW 26.0 H Plt Count 323 MPV 8.6 Absolute Neuts (auto) 5.7 Neutrophils % 74.7 Lymphocytes % 11.2 Monocytes % 10.9 H Eosinophils % 3.0 Basophils % 0.2 Sodium 132 L Potassium 3.9 Chloride 86 L Carbon Dioxide 41 H Anion Gap 5 L BUN 17 Creatinine 0.6 Creat Clearance w eGFR > 60 POC Glucometer Random Glucose 124 H D Calcium 7.9 L Magnesium Free T4 1.18 06/17/18 06/18/18 06/18/18 22:09 05:46 08:00 WBC RBC Hgb Hct MCV MCH MCHC RDW Plt Count MPV Absolute Neuts (auto) Neutrophils % Lymphocytes % Monocytes % Eosinophils % Basophils % Sodium 131 L Potassium 3.8 Chloride 86 L Carbon Dioxide 38 H Anion Gap 7 L BUN 15 Creatinine < 0.6 L Creat Clearance w eGFR > 60 POC Glucometer 120 105 Random Glucose 86 D Calcium 7.7 L Magnesium 1.9 Free T4 Active Medications Generic Name Dose Route Start Last Admin Trade Name Freq PRN Reason Stop Dose Admin Albuterol/Ipratropium 1 amp 06/14/18 08:33 06/18/18 05:19 Duoneb - NEB 1 amp QIDR REED Administration Aspirin 81 mg 06/17/18 10:00 06/18/18 09:05 Asa - PO 81 mg DAILY REED Administration Atenolol 50 mg 06/13/18 10:00 06/18/18 09:06 Tenormin - PO 50 mg DAILY REED Administration Diltiazem HCl 180 mg 06/12/18 21:43 06/18/18 09:05 Cardizem Cd - PO 180 mg DAILY REED Administration Docusate Sodium 100 mg 06/16/18 12:00 06/18/18 09:06 Colace - PO 100 mg BID REED Administration Ferrous Sulfate 325 mg 06/14/18 11:30 06/18/18 09:06 Feosol - PO 325 mg BID REED Administration Furosemide 40 mg 06/18/18 10:00 06/18/18 09:04 Lasix - PO 40 mg DAILY REED Administration Guaifenesin 600 mg 06/16/18 12:00 06/18/18 09:06 Mucinex - PO 600 mg BID REED Administration Ceftriaxone Sodium 1 gm in 50 mls @ 100 mls/hr 06/15/18 10:00 06/18/18 09:06 Rocephin 1gm Ivpb (Pre-Docked) IVPB 100 mls/hr DAILY REED Administration Protocol Insulin Aspart 1 vial 06/12/18 16:30 06/18/18 06:51 Novolog Vial Sliding Scale - SQ Not Given ACHS REED Protocol Lactobacillus Acidophilus 1 tab 06/14/18 11:00 06/18/18 09:06 Bacid - PO 1 tab DAILY REED Administration Levothyroxine Sodium 88 mcg 06/13/18 07:00 06/18/18 06:52 Synthroid - PO 88 mcg DAILY@0700 REED Administration Losartan Potassium 50 mg 06/15/18 10:00 06/18/18 09:06 Cozaar - PO 50 mg DAILY REED Administration Multi-Ingredient Lotion 1 applic 06/12/18 13:15 06/18/18 09:07 Eucerin (Large Jar) - TP 1 applic BID REED Administration Ondansetron HCl 4 mg 06/14/18 16:43 06/14/18 17:42 Zofran Injection IVPUSH 4 mg Q6H PRN Administration NAUSEA Pantoprazole Sodium 40 mg 06/14/18 14:30 06/18/18 09:45 Protonix Iv IVPUSH 40 mg DAILY REED Administration ASSESSMENT/PLAN 87 year-old female with a PMH significant for CVA, afib not on anti-coagulation , diastolic heart failure, anemia, diet-controlled diabetes, breast cancer, and hypothyroidism. Admitted for HF exacerbation, anemia, and UTI. Acute on chronic diastolic heart failure --Echo: LV WNL; pleural effusion; severe TR; RVSP elevated PVR --has been diuresed, down almost 9kg since admission --continue Lasix PO 40mg Atrial fibrillation --rate well-controlled, continue diltiazem and atenolol --not on anticoagulation patient's preference Acute hypercapnic respiratory failure, resolved --BIPAP as needed Bilateral pneumonia Bilateral pleural effusions s/p thoracentesis --06/16 CXR: fluid on right is improved but left base has become dense; consider repeat CT chest --will continue ceftriaxone Carotid artery stenosis --significant bilateral disease; carotid endarterectomy as an outpatient Acute blood loss anemia --occult stool was positive, transfused 2U PRBC --h/h stable --plan was for colonoscopy tomorrow but will not proceed: #1: patient refusing GoLitely; #2: borderline hypotensive and hyponatremic, not stable enough to withstand large volume shifts --continue protonix, iron supplements Hypothyroidism --abnormal TSH, free T4 pending --continue levothyroxine NIDDM --Novolog sliding scale coverage E. coli UTI --continue ceftiraxone DVT prophylaxis: SCDs Physical therapy Dispo:Requires Inpatient Care. Visit type - Emergency Visit Emergency Visit: Yes ED Registration Date: 06/12/18 Care time: The patient presented to the Emergency Department on the above date and was hospitalized for further evaluation of their emergent condition. - New Patient This patient is new to me today: Yes Date on this admission: 06/18/18 - Critical Care Critical Care patient: No
[2018-06-18 10:40] LABS: BASO % 0.4 % (0-2.0); EOS % 6.5 % (0-4.5); HEMATOCRIT 32.2 % (32.4-45.2); HEMOGLOBIN 10.3 GM/dl (10.7-15.3); LYMPH % 15.1 % (8-40); MCH 23.2 pg (25.7-33.7); MCHC 31.8 g/dl (32.0-36.0); MEAN CELL VOLUME 72.8 fl (80-96); MEAN PLT VOLUME 9.2 fl (7.5-11.1); MONO % 13.9 % (3.8-10.2); NEUT % 64.1 % (42.8-82.8); PLATELET COUNT 301 K/MM3 (134-434); RBC 4.42 M/mm3 (3.60-5.2); RDW 27.2 % (11.6-15.6); WHITE BLOOD COUNT 6.4 K/mm3 (4.0-10.8)
[2018-06-18 10:47] LABS: ADD RBC MORPHOLOGY YES
[2018-06-18 14:55] LABS: ANISOCYTOSIS 3+; OVALOCYTE 1+; PLATELET ESTIMATE ADEQUATE; TEAR DROP CELLS 1+
[2018-06-18] MEDS ORDERED: AMOX TR/POT CLAV 875MG/125MG TABLETS (FP) PO SCH (17:30)
[2018-06-19] MEDS: ALBUTEROL SO4 2.5/IPRATROPIUM 0.5 INH SOL 3 ML VIAL.NEB. NEB SCH ×4 (00:34→19:17)
[2018-06-19] MEDS ORDERED: INSULIN (NOVOLOG) ASPART 100 UNITS/ML 10ML VIAL ONE (05:56)
[2018-06-19] MEDS: LEVOTHYROXINE NA 88 MCG TABLET (FP) PO SCH (06:02)
[2018-06-19] MEDS: INSULIN SLIDING SCALE (NOVOLOG) 1 VIAL SQ SCH ×4 (06:02→21:34)
[2018-06-19 08:09] LABS: EOS % 7.8 % (0-4.5); HEMATOCRIT 31.5 % (32.4-45.2); HEMOGLOBIN 9.7 GM/dl (10.7-15.3); LYMPH % 16.6 % (8-40); MCH 22.5 pg (25.7-33.7); MCHC 30.9 g/dl (32.0-36.0); MEAN CELL VOLUME 72.8 fl (80-96); MEAN PLT VOLUME 8.8 fl (7.5-11.1); MONO % 12.2 % (3.8-10.2); NEUT % 62.4 % (42.8-82.8); PLATELET COUNT 313 K/MM3 (134-434); RBC 4.33 M/mm3 (3.60-5.2); RDW 26.9 % (11.6-15.6); WHITE BLOOD COUNT 5.5 K/mm3 (4.0-10.8)
[2018-06-19 08:39] LABS: ALBUMIN 2.3 g/dl (3.5-5.0); ALK PHOS 64 U/L (32-92); ANION GAP 6 (8-16); BILIRUBIN,TOTAL 0.8 mg/dl (0.2-1.0); BLOOD UREA NITROGEN 10 mg/dl (7-18); CALCIUM 8.1 mg/dl (8.4-10.2); CHLORIDE 86 mmol/L (98-107); CO2 39 mmol/L (22-28); CREATININE 0.5 mg/dl (0.6-1.3); GLUCOSE,RANDOM 119 mg/dl (74-106); MAGNESIUM 1.8 mg/dL (1.8-2.4); POTASSIUM 3.2 mmol/L (3.5-5.1); SGOT/AST 22 U/L (10-42); SGPT/ALT 16 U/L (10-40); SODIUM 131 mmol/L (136-145); TOT PROT 5.1 g/dl (6.4-8.3)
[2018-06-19] MEDS: PANTOPRAZOLE SODIUM 40 MG VIAL IVPUSH SCH (09:00)
[2018-06-19] MEDS ORDERED: MAGNESIUM SULFATE IN WATER 2 GM/50 ML IVPB IVPB ONE (09:15)
[2018-06-19] MEDS: KCL 10 MEQ IVPB 10 MEQ/100 ML INFUS.BAG IVPB SCH ×2 (09:30→10:40)
--- NOTE | 2018-06-19 09:32 | PN ---
Physical Exam: SUBJECTIVE: Patient seen and examined, patient sitting up in bed, reports feeling well. Tolerated clear liquid diet OBJECTIVE:patient is a 87 year-old female with a PMH significant for CVA, afib not on anti-coagulation, diastolic heart failure, anemia, diet-controlled diabetes, breast cancer, and hypothyroidism. Admitted for HF exacerbation, anemia, and UT Vital Signs Period Temp Pulse Resp BP Sys/De La O Pulse Ox Last 24 Hr 98.2 F-98.6 F 86-87 17-18 116-124/51-54 96-96 GENERAL: The patient is awake, alert, and fully oriented, in no acute distress. HEAD: Normal with no signs of trauma. EYES: PERRL, extraocular movements intact, sclera anicteric, conjunctiva clear. No ptosis. ENT: Ears normal, nares patent, oropharynx clear without exudates, moist mucous membranes. NECK: Trachea midline, full range of motion, supple. LUNGS: Breath sounds equal, clear to auscultation bilaterally to apexes, crackles to base, no wheezes, no accessory muscle use. HEART: irregular rate and rhythm, S1, S2 without murmur, rub or gallop. ABDOMEN: Soft, nontender, nondistended, normoactive bowel sounds, no guarding, no rebound, no hepatosplenomegaly, no masses. EXTREMITIES: 2+ pulses, warm, well-perfused, +1 LE edema NEUROLOGICAL: Cranial nerves II through XII grossly intact. Normal speech, gait not observed. PSYCH: Normal mood, normal affect. SKIN: Warm, dry, normal turgor, no rashes or lesions noted Laboratory Results - last 24 hr 06/19/18 06/19/18 06/19/18 05:54 07:05 07:05 WBC 5.5 RBC 4.33 Hgb 9.7 L Hct 31.5 L MCV 72.8 L MCH 22.5 L MCHC 30.9 L RDW 26.9 H Plt Count 313 MPV 8.8 Absolute Neuts (auto) 3.4 Neutrophils % 62.4 Lymphocytes % 16.6 Monocytes % 12.2 H Eosinophils % 7.8 H Basophils % 1.0 Hypochromia Platelet Estimate Anisocytosis Microcytosis Tear Drop Cells Ovalocytes Sodium 131 L Potassium 3.2 L Chloride 86 L Carbon Dioxide 39 H Anion Gap 6 L BUN 10 Creatinine 0.5 L Creat Clearance w eGFR > 60 POC Glucometer 158 Random Glucose 119 H D Calcium 8.1 L Magnesium 1.8 Total Bilirubin 0.8 AST 22 ALT 16 Alkaline Phosphatase 64 Total Protein 5.1 L Albumin 2.3 L Active Medications Generic Name Dose Route Start Last Admin Trade Name Marlin PRN Reason Stop Dose Admin Albuterol/Ipratropium 1 amp 06/14/18 08:33 06/19/18 05:58 Duoneb - NEB 1 amp QIDR REED Administration Aspirin 81 mg 06/17/18 10:00 06/18/18 09:05 Asa - PO 81 mg DAILY REED Administration Atenolol 50 mg 06/13/18 10:00 06/18/18 09:06 Tenormin - PO 50 mg DAILY REED Administration Diltiazem HCl 180 mg 06/12/18 21:43 06/18/18 09:05 Cardizem Cd - PO 180 mg DAILY REED Administration Docusate Sodium 100 mg 06/16/18 12:00 06/18/18 22:10 Colace - PO 100 mg BID REED Administration Ferrous Sulfate 325 mg 06/14/18 11:30 06/18/18 22:10 Feosol - PO 325 mg BID REED Administration Furosemide 40 mg 06/18/18 10:00 06/18/18 09:04 Lasix - PO 40 mg DAILY REED Administration Guaifenesin 600 mg 06/16/18 12:00 06/18/18 22:10 Mucinex - PO 600 mg BID REED Administration Ceftriaxone Sodium 1 gm in 50 mls @ 100 mls/hr 06/19/18 10:00 Rocephin 1gm Ivpb (Pre-Docked) IVPB DAILY REED Protocol Magnesium Sulfate 2 gm in 50 mls @ 50 mls/hr 06/19/18 09:15 Magnesium Sulf 2 G/50 Ml Bag IVPB 06/19/18 10:14 ONCE ONE Potassium Chloride 10 meq in 100 mls @ 100 mls/hr 06/19/18 09:30 Potassium Chloride 10 Meq Premix Ivpb - IVPB 06/19/18 11:29 Q60M REED Insulin Aspart 1 vial 06/12/18 16:30 06/19/18 06:02 Novolog Vial Sliding Scale - SQ 2 units ACHS REED Administration Protocol Lactobacillus Acidophilus 1 tab 06/14/18 11:00 06/18/18 09:06 Bacid - PO 1 tab DAILY [facility] Administration Levothyroxine Sodium 88 mcg 06/13/18 07:00 06/19/18 06:02 Synthroid - PO 88 mcg DAILY@0700 RE[facility] Administration Losartan Potassium 50 mg 06/15/18 10:00 06/18/18 09:06 Cozaar - PO 50 mg DAILY [facility] Administration Multi-Ingredient Lotion 1 applic 06/12/18 13:15 06/18/18 22:10 Eucerin (Large Jar) - TP 1 applic BID REED Administration Ondansetron HCl 4 mg 06/14/18 16:43 06/14/18 17:42 Zofran Injection IVPUSH 4 mg Q6H PRN Administration NAUSEA Pantoprazole Sodium 40 mg 06/14/18 14:30 06/18/18 09:45 Protonix Iv IVPUSH 40 mg DAILY REED Administration Microbiology 06/16/18 15:00 Pleural Fluid Body Fluid Culture - Final NO GROWTH OF AEROBIC ORGANISMS AFTER 48 HOURS INCUBATION 06/16/18 15:00 Pleural Fluid Anaerobic Culture - Final NO ANAEROBES WERE ISOLATED 06/14/18 08:30 Blood - Peripheral Venous Blood Culture - Final NO GROWTH AFTER 5 DAYS INCUBATION 06/14/18 08:30 Blood - Peripheral Venous Blood Culture - Final NO GROWTH AFTER 5 DAYS INCUBATION 06/16/18 15:00 Pleural Fluid AFB Smear Concentration - Preliminary 06/16/18 15:00 Pleural Fluid Mycobacterial Culture - Preliminary 06/16/18 10:00 Sputum - Expectorated Gram Stain - Final 06/16/18 10:00 Sputum - Expectorated Sputum Culture - Final NORMAL RESPIRATORY EFRAIN 06/16/18 15:00 Pleural Fluid JACOB Preparation - Preliminary 06/16/18 15:00 Pleural Fluid Fungal Culture - Preliminary 06/14/18 10:30 Urine - Urine [place] Urine Culture - Final Escherichia Coli 06/14/18 17:14 Urine For Antigen Detection Legionella Antigen - Final 06/14/18 17:14 Urine For Antigen Detection Streptococcus pneumoniae Antigen (M - Final IMAGING cta of chest: no CT evidence of pulmonary embolism, pulmonary vascular congestion with cardiomegaly, bilateral pleural effusion Head CT (June 14 2018): no acute pathology echo LV WNL pleural effusion severe TR RVSP elevated PVR carotid doppler: extensive atherosclerotic disease with stenosis in the 80%-90% range involving the right ICA and in the 60-79% range involving the left carotid bifurcation ASSESSMENT/PLAN: 1) cardiology Acute on chronic diastolic heart failure - 7kg weight loss noted, continue lasix 40mg qd - strict i/o and daily weights Atrial fibrillation -rate well-controlled, continue diltiazem and atenolol -not on anticoagulation patient's preference Carotid artery stenosis -significant bilateral disease; carotid endarterectomy as an outpatient 2) pulm Acute hypercapnic respiratory failure, resolved -BIPAP as needed Bilateral pneumonia Bilateral pleural effusions s/p thoracentesis - rocephin 06/15 -06/19 transition to ceftin 250mg bid 3) heme Acute blood loss anemia - occult stool was positive, transfused 2U PRBC, h/h stable, continue iron supplements - endo completed today no acute process noted, pt declined GoLitely, discussed with Dr Simpson, GI continue Miralax tid and clear liquid diet, attempt colonscopy on 06/21/18 4) endo Hypothyroidism -abnormal TSH, free T4 wnl, continue levothyroxine NIDDM -Novolog sliding scale coverage 5) E. coli UTI - continue ceftin DVT prophylaxis: SCDs Physical therapy Dispo:Requires Inpatient Care. Visit type - Emergency Visit Emergency Visit: Yes ED Registration Date: 06/12/18 Care time: The patient presented to the Emergency Department on the above date and was hospitalized for further evaluation of their emergent condition. - New Patient This patient is new to me today: No - Critical Care Critical Care patient: No - Discharge Referral Referred to [facility] Med P.C[facility] No
[2018-06-19] MEDS: DOCUSATE SODIUM 100 MG CAPSULE (FP) PO SCH ×2 (10:00→21:33)
[2018-06-19] MEDS: CEFUROXIME AXETIL 250 MG TABLET PO SCH ×2 (10:00→21:33)
[2018-06-19] MEDS ORDERED: CEFTRIAXONE 1 GM/50 ML BAG IVPB SCH (10:00)
[2018-06-19] MEDS: ATENOLOL 50 MG TABLET (FP) PO SCH (10:00)
[2018-06-19] MEDS ORDERED: CEFTRIAXONE 1 GM in DEXTROSE 5%-WATER 100 ML IVPB SCH (10:00)
[2018-06-19] MEDS: guaiFENesin 600 MG TABLET.ER (FP) PO SCH ×2 (10:00→21:34)
[2018-06-19] MEDS: FERROUS SO4 325 MG TABLET (FP) PO SCH ×2 (10:00→21:33)
[2018-06-19] MEDS: MINERAL OIL/PETROLAT/WATER TOPICAL CREAM 454 GM JAR TP SCH ×2 (10:00→21:33)
--- NOTE | 2018-06-19 10:01 | PN ---
Progress Note, Physician History of Present Illness: Awake,alert Seated in bed Offers no complaints Denies chest pain/ dyspnea/ cough Breathing non-labored Temps down Afebrile WBC WNL BC (-) Urine c/s E coli - Current Medication List Current Medications: Active Medications Albuterol/Ipratropium (Duoneb -) 1 amp NEB QIDR [facility] Last Admin: 06/19/18 05:58 Dose: 1 amp Aspirin (Asa -) 81 mg PO DAILY [facility] Last Admin: 06/18/18 09:05 Dose: 81 mg Atenolol (Tenormin -) 50 mg PO DAILY [facility] Last Admin: 06/18/18 09:06 Dose: 50 mg Diltiazem HCl (Cardizem Cd -) 180 mg PO DAILY [facility] Last Admin: 06/18/18 09:05 Dose: 180 mg Docusate Sodium (Colace -) 100 mg PO BID [facility] Last Admin: 06/18/18 22:10 Dose: 100 mg Ferrous Sulfate (Feosol -) 325 mg PO BID [facility] Last Admin: 06/18/18 22:10 Dose: 325 mg Furosemide (Lasix -) 40 mg PO DAILY [facility] Last Admin: 06/18/18 09:04 Dose: 40 mg Guaifenesin (Mucinex -) 600 mg PO BID [facility] Last Admin: 06/18/18 22:10 Dose: 600 mg Ceftriaxone Sodium (Rocephin 1gm Ivpb (Pre-Docked)) 1 gm in 50 mls @ 100 mls/ hr IVPB DAILY [facility]; Protocol Magnesium Sulfate (Magnesium Sulf 2 G/50 Ml Bag) 2 gm in 50 mls @ 50 mls/hr IVPB ONCE ONE Stop: 06/19/18 10:14 Potassium Chloride (Potassium Chloride 10 Meq Premix Ivpb -) 10 meq in 100 mls @ 100 mls/hr IVPB Q60M [facility] Stop: 06/19/18 11:29 Insulin Aspart (Novolog Vial Sliding Scale -) 1 vial SQ ACHS [facility]; Protocol Last Admin: 06/19/18 06:02 Dose: 2 units Lactobacillus Acidophilus (Bacid -) 1 tab PO DAILY [facility] Last Admin: 06/18/18 09:06 Dose: 1 tab Levothyroxine Sodium (Synthroid -) 88 mcg PO DAILY@0700 [facility] Last Admin: 06/19/18 06:02 Dose: 88 mcg Losartan Potassium (Cozaar -) 50 mg PO DAILY [facility] Last Admin: 06/18/18 09:06 Dose: 50 mg Multi-Ingredient Lotion (Eucerin (Large Jar) -) 1 applic TP BID [facility] Last Admin: 06/18/18 22:10 Dose: 1 applic Ondansetron HCl (Zofran Injection) 4 mg IVPUSH Q6H PRN PRN Reason: NAUSEA Last Admin: 06/14/18 17:42 Dose: 4 mg Pantoprazole Sodium (Protonix Iv) 40 mg IVPUSH DAILY [facility] Last Admin: 06/18/18 09:45 Dose: 40 mg - Objective Vital Signs: Vital Signs Temperature 98.6 F 06/19/18 05:48 Pulse Rate 86 06/19/18 05:48 Respiratory Rate 17 06/19/18 08:06 Blood Pressure 124/51 06/19/18 05:48 O2 Sat by Pulse Oximetry (%) 96 06/19/18 08:06 Constitutional: Yes: No Distress, Thin Cardiovascular: Yes: Regular Rate and Rhythm, S1, S2 Respiratory: Yes: Diminished Gastrointestinal: Yes: Normal Bowel Sounds, Soft. No: Tenderness Edema: No Labs: CBC, BMP 06/19/18 07:05 06/19/18 07:05 INR, PTT INR 1.27 (0.82-1.09) H 06/12/18 07:47 Assessment/Plan Large R pleural effusion S/P thoracentesis- transudative S/P sepsis syndrome- improved UTI Ecoli Switch to po ceftin bid x3d
--- NOTE | 2018-06-19 10:43 | PN ---
Progress Note, Physician History of Present Illness: pulmonary alert,feeling better,-resp distress. - Current Medication List Current Medications: Active Medications Albuterol/Ipratropium (Duoneb -) 1 amp NEB QIDR [facility] Last Admin: 06/19/18 05:58 Dose: 1 amp Aspirin (Asa -) 81 mg PO DAILY [facility] Last Admin: 06/18/18 09:05 Dose: 81 mg Atenolol (Tenormin -) 50 mg PO DAILY [facility] Last Admin: 06/18/18 09:06 Dose: 50 mg Cefuroxime Axetil (Ceftin -) 250 mg PO BID [facility] Diltiazem HCl (Cardizem Cd -) 180 mg PO DAILY [facility] Last Admin: 06/18/18 09:05 Dose: 180 mg Docusate Sodium (Colace -) 100 mg PO BID [facility] Last Admin: 06/18/18 22:10 Dose: 100 mg Ferrous Sulfate (Feosol -) 325 mg PO BID [facility] Last Admin: 06/18/18 22:10 Dose: 325 mg Furosemide (Lasix -) 40 mg PO DAILY [facility] Last Admin: 06/18/18 09:04 Dose: 40 mg Guaifenesin (Mucinex -) 600 mg PO BID [facility] Last Admin: 06/18/18 22:10 Dose: 600 mg Potassium Chloride (Potassium Chloride 10 Meq Premix Ivpb -) 10 meq in 100 mls @ 100 mls/hr IVPB Q60M [facility] Stop: 06/19/18 11:29 Insulin Aspart (Novolog Vial Sliding Scale -) 1 vial SQ ACHS [facility]; Protocol Last Admin: 06/19/18 06:02 Dose: 2 units Lactobacillus Acidophilus (Bacid -) 1 tab PO DAILY [facility] Last Admin: 06/18/18 09:06 Dose: 1 tab Levothyroxine Sodium (Synthroid -) 88 mcg PO DAILY@0700 [facility] Last Admin: 06/19/18 06:02 Dose: 88 mcg Losartan Potassium (Cozaar -) 50 mg PO DAILY [facility] Last Admin: 06/18/18 09:06 Dose: 50 mg Multi-Ingredient Lotion (Eucerin (Large Jar) -) 1 applic TP BID [facility] Last Admin: 06/18/18 22:10 Dose: 1 applic Ondansetron HCl (Zofran Injection) 4 mg IVPUSH Q6H PRN PRN Reason: NAUSEA Last Admin: 06/14/18 17:42 Dose: 4 mg Pantoprazole Sodium (Protonix Iv) 40 mg IVPUSH DAILY [facility] Last Admin: 06/18/18 09:45 Dose: 40 mg - Objective Vital Signs: Vital Signs Temperature 98.6 F 06/19/18 05:48 Pulse Rate 86 06/19/18 05:48 Respiratory Rate 17 06/19/18 08:06 Blood Pressure 124/51 06/19/18 05:48 O2 Sat by Pulse Oximetry (%) 96 06/19/18 08:06 Constitutional: Yes: Well Nourished, Calm Eyes: Yes: WNL HENT: Yes: WNL Neck: Yes: WNL Cardiovascular: Yes: Regular Rate and Rhythm, S1, S2 Respiratory: Yes: Rales (bibasilar crackles) Gastrointestinal: Yes: Normal Bowel Sounds, Soft Extremities: Yes: WNL Edema: No Labs: CBC, BMP 06/19/18 07:05 06/19/18 07:05 INR, PTT INR 1.27 (0.82-1.09) H 06/12/18 07:47 Problem List - Problems (1) Acute on chronic respiratory failure with hypoxia and hypercapnia Code(s): J96.21 - ACUTE AND CHRONIC RESPIRATORY FAILURE WITH HYPOXIA; J96.22 - ACUTE AND CHRONIC RESPIRATORY FAILURE WITH HYPERCAPNIA (2) Acute hypercapnic respiratory failure Code(s): J96.02 - ACUTE RESPIRATORY FAILURE WITH HYPERCAPNIA (3) Atrial fibrillation Code(s): I48.91 - UNSPECIFIED ATRIAL FIBRILLATION Qualifiers: Atrial fibrillation type: persistent Qualified Code(s): I48.1 - Persistent atrial fibrillation (4) Hypothyroidism Code(s): E03.9 - HYPOTHYROIDISM, UNSPECIFIED Qualifiers: Hypothyroidism type: unspecified Qualified Code(s): E03.9 - Hypothyroidism , unspecified (5) Pleural effusion Code(s): J90 - PLEURAL EFFUSION, NOT ELSEWHERE CLASSIFIED (6) Respiratory distress Code(s): R06.03 - ACUTE RESPIRATORY DISTRESS (7) Pulmonary hypertension Code(s): I27.20 - PULMONARY HYPERTENSION, UNSPECIFIED (8) Acute on chronic diastolic heart failure Code(s): I50.33 - ACUTE ON CHRONIC DIASTOLIC (CONGESTIVE) HEART FAILURE Assessment/Plan IMP ACUTE ON CHRONIC HYPOXEMIC/HYPERCAPNEIC RESPIRATORY FAILURE IMPROVING ACUTE ON CHRONIC DIASTOLIC HF IMPROVING PULMONARY HYPERTENSION ANEMIA BILATERAL PLEURAL EFFUSIONS TRANSUDATE RUL NODULE ? MALIGNANT ,? INFLAMMATORY H/O BREAST CA S/P R MASTECTOMY PLAN LASIX PO SUPPLEMENTAL O2 TO MAINTAIN O2 SAT 90% OR > INHALED BRONCHODILATORS PRN F/U CHEST CT 3 MONTHS GI W/U AMBULATORY O2 SAT PRIOR TO DISCHARGE TO DETERMINE IF PT IS A CANDIDATE FOR HOME O2 DR BLEDSOE Problem List - Problems (1) Acute on chronic respiratory failure with hypoxia and hypercapnia Code(s): J96.21 - ACUTE AND CHRONIC RESPIRATORY FAILURE WITH HYPOXIA; J96.22 - ACUTE AND CHRONIC RESPIRATORY FAILURE WITH HYPERCAPNIA (2) Acute hypercapnic respiratory failure Code(s): J96.02 - ACUTE RESPIRATORY FAILURE WITH HYPERCAPNIA (3) Atrial fibrillation Code(s): I48.91 - UNSPECIFIED ATRIAL FIBRILLATION Qualifiers: Atrial fibrillation type: persistent Qualified Code(s): I48.1 - Persistent atrial fibrillation (4) Hypothyroidism Code(s): E03.9 - HYPOTHYROIDISM, UNSPECIFIED Qualifiers: Hypothyroidism type: unspecified Qualified Code(s): E03.9 - Hypothyroidism , unspecified (5) Pleural effusion Code(s): J90 - PLEURAL EFFUSION, NOT ELSEWHERE CLASSIFIED (6) Respiratory distress Code(s): R06.03 - ACUTE RESPIRATORY DISTRESS (7) Pulmonary hypertension Code(s): I27.20 - PULMONARY HYPERTENSION, UNSPECIFIED (8) Acute on chronic diastolic heart failure Code(s): I50.33 - ACUTE ON CHRONIC DIASTOLIC (CONGESTIVE) HEART FAILURE
[2018-06-19 10:59] LABS: PLEURAL FLD EOSINOPHIL 1 %; PLEURAL FLUID LYMPHOCYTES 92 %; PLEURAL FLUID MESOTHELIAL 1 %; PLEURAL FLUID MONOCYTE 5 %; PLEURAL FLUID NEUTROPHIL 1 %
[2018-06-19 11:16] LABS: ARTERIAL BLD GAS O2 SATURATION 98.9 % (90-98.9); ARTERIAL BLOOD GAS PCO2 52.1 mmHg (35-45); ARTERIAL BLOOD GAS pH 7.47 (7.35-7.45)
[2018-06-19 11:17] LABS: ARTERIAL BLOOD GAS BASE EXCESS 12.2 meq/l (-2-2)
--- NOTE | 2018-06-19 13:26 | PN ---
Progress Note (short form) - Note Progress Note: Upper endoscopy performed with report in chart. No evidence of bleeding seen and no ulcers/mass seen. Area of mild inflammation/prominent fold? noted in gastric fundus - biopsied. Rec await path continue PPI will need to proceed with colonoscopy In view of prep issues would continue on clear liquid diet and give Miralax powder 17gm PO tid x 2 days and tentatively schedule for Weds.
[2018-06-19] MEDS ORDERED: POLYETHYLENE GLYCOL 3350 119 GM BTL PO SCH (13:30)
[2018-06-19] MEDS: POLYETHYLENE GLYCOL 3350 119 GM BTL PO SCH ×2 (15:35→19:17)
[2018-06-19] MEDS: ASPIRIN 81 MG CHEWABLE TABLETS PO SCH (16:06)
[2018-06-19] MEDS: LACTOBACILLUS ACIDOPHILUS 1 TABLET PO SCH (16:06)
[2018-06-19] MEDS: LOSARTAN POTASSIUM 50 MG TABLET (FP) PO SCH (16:08)
[2018-06-19] MEDS: FUROSEMIDE 40 MG TABLET (FP) PO SCH (16:08)
[2018-06-19] MEDS ORDERED: PT OWN MED DRAWER 7, Y5N ONE (21:30)
[2018-06-20] MEDS: ALBUTEROL SO4 2.5/IPRATROPIUM 0.5 INH SOL 3 ML VIAL.NEB. NEB SCH ×4 (06:16→17:19)
[2018-06-20] MEDS: INSULIN SLIDING SCALE (NOVOLOG) 1 VIAL SQ SCH ×4 (06:16→21:17)
[2018-06-20] MEDS: LEVOTHYROXINE NA 88 MCG TABLET (FP) PO SCH (06:16)
--- NOTE | 2018-06-20 07:26 | PN ---
Progress Note, Physician History of Present Illness: PULMONARY ALERT,NAD,-SOB,-CP - Current Medication List Current Medications: Active Medications Albuterol/Ipratropium (Duoneb -) 1 amp NEB QIDR [facility] Last Admin: 06/20/18 06:16 Dose: 1 amp Aspirin (Asa -) 81 mg PO DAILY [facility] Last Admin: 06/19/18 16:06 Dose: 81 mg Atenolol (Tenormin -) 50 mg PO DAILY [facility] Last Admin: 06/19/18 10:00 Dose: 50 mg Cefuroxime Axetil (Ceftin -) 250 mg PO BID [facility] Last Admin: 06/19/18 21:33 Dose: 250 mg Diltiazem HCl (Cardizem Cd -) 180 mg PO DAILY [facility] Last Admin: 06/19/18 16:07 Dose: 180 mg Docusate Sodium (Colace -) 100 mg PO BID [facility] Last Admin: 06/19/18 21:33 Dose: 100 mg Ferrous Sulfate (Feosol -) 325 mg PO BID [facility] Last Admin: 06/19/18 21:33 Dose: 325 mg Furosemide (Lasix -) 40 mg PO DAILY [facility] Last Admin: 06/19/18 16:08 Dose: 40 mg Guaifenesin (Mucinex -) 600 mg PO BID [facility] Last Admin: 06/19/18 21:34 Dose: 600 mg Insulin Aspart (Novolog Vial Sliding Scale -) 1 vial SQ [facility]; Protocol Last Admin: 06/20/18 06:16 Dose: Not Given Lactobacillus Acidophilus (Bacid -) 1 tab PO DAILY [facility] Last Admin: 06/19/18 16:06 Dose: 1 tab Levothyroxine Sodium (Synthroid -) 88 mcg PO DAILY@0700 [facility] Last Admin: 06/20/18 06:16 Dose: 88 mcg Losartan Potassium (Cozaar -) 50 mg PO DAILY [facility] Last Admin: 06/19/18 16:08 Dose: 50 mg Multi-Ingredient Lotion (Eucerin (Large Jar) -) 1 applic TP BID [facility] Last Admin: 06/19/18 21:33 Dose: 1 applic Ondansetron HCl (Zofran Injection) 4 mg IVPUSH Q6H PRN PRN Reason: NAUSEA Last Admin: 06/14/18 17:42 Dose: 4 mg Pantoprazole Sodium (Protonix Iv) 40 mg IVPUSH DAILY [facility] Last Admin: 06/19/18 09:00 Dose: 40 mg Polyethylene Glycol (Miralax (For Daily Use) -) 17 gm PO TID@1000,1400,1800 [facility] Last Admin: 06/19/18 19:17 Dose: Not Given - Objective Vital Signs: Vital Signs Temperature 98.6 F 06/20/18 06:00 Pulse Rate 64 06/20/18 06:00 Respiratory Rate 20 06/20/18 06:00 Blood Pressure 123/52 06/20/18 06:00 O2 Sat by Pulse Oximetry (%) 97 06/20/18 06:46 Constitutional: Yes: Well Nourished, Calm Eyes: Yes: WNL HENT: Yes: WNL Neck: Yes: WNL Cardiovascular: Yes: Pulse Irregular, S1, S2 Respiratory: Yes: Rales (BIBASILAR CRACKLES) Gastrointestinal: Yes: Normal Bowel Sounds, Soft Extremities: Yes: WNL Edema: No Labs: Problem List - Problems (1) Acute on chronic respiratory failure with hypoxia and hypercapnia Code(s): J96.21 - ACUTE AND CHRONIC RESPIRATORY FAILURE WITH HYPOXIA; J96.22 - ACUTE AND CHRONIC RESPIRATORY FAILURE WITH HYPERCAPNIA (2) Acute hypercapnic respiratory failure Code(s): J96.02 - ACUTE RESPIRATORY FAILURE WITH HYPERCAPNIA (3) Atrial fibrillation Code(s): I48.91 - UNSPECIFIED ATRIAL FIBRILLATION Qualifiers: Atrial fibrillation type: persistent Qualified Code(s): I48.1 - Persistent atrial fibrillation (4) Hypothyroidism Code(s): E03.9 - HYPOTHYROIDISM, UNSPECIFIED Qualifiers: Hypothyroidism type: unspecified Qualified Code(s): E03.9 - Hypothyroidism , unspecified (5) Pleural effusion Code(s): J90 - PLEURAL EFFUSION, NOT ELSEWHERE CLASSIFIED (6) Respiratory distress Code(s): R06.03 - ACUTE RESPIRATORY DISTRESS (7) Pulmonary hypertension Code(s): I27.20 - PULMONARY HYPERTENSION, UNSPECIFIED (8) Acute on chronic diastolic heart failure Code(s): I50.33 - ACUTE ON CHRONIC DIASTOLIC (CONGESTIVE) HEART FAILURE Assessment/Plan IMP ACUTE ON CHRONIC HYPOXEMIC/HYPERCAPNEIC RESPIRATORY FAILURE IMPROVED ACUTE ON CHRONIC DIASTOLIC HF IMPROVED PULMONARY HYPERTENSION ANEMIA BILATERAL PLEURAL EFFUSIONS TRANSUDATE RUL NODULE ? MALIGNANT ,? INFLAMMATORY H/O BREAST CA S/P R MASTECTOMY PLAN LASIX PO SUPPLEMENTAL O2 TO MAINTAIN O2 SAT 90% OR > INHALED BRONCHODILATORS PRN F/U CHEST CT 3 MONTHS GI W/U IN PROGRESS AMBULATORY O2 SAT PRIOR TO DISCHARGE TO DETERMINE IF PT IS A CANDIDATE FOR HOME O2 DR BLEDSOE Problem List - Problems (1) Acute on chronic respiratory failure with hypoxia and hypercapnia Code(s): J96.21 - ACUTE AND CHRONIC RESPIRATORY FAILURE WITH HYPOXIA; J96.22 - ACUTE AND CHRONIC RESPIRATORY FAILURE WITH HYPERCAPNIA (2) Acute hypercapnic respiratory failure Code(s): J96.02 - ACUTE RESPIRATORY FAILURE WITH HYPERCAPNIA (3) Atrial fibrillation Code(s): I48.91 - UNSPECIFIED ATRIAL FIBRILLATION Qualifiers: Atrial fibrillation type: persistent Qualified Code(s): I48.1 - Persistent atrial fibrillation (4) Hypothyroidism Code(s): E03.9 - HYPOTHYROIDISM, UNSPECIFIED Qualifiers: Hypothyroidism type: unspecified Qualified Code(s): E03.9 - Hypothyroidism , unspecified (5) Pleural effusion Code(s): J90 - PLEURAL EFFUSION, NOT ELSEWHERE CLASSIFIED (6) Respiratory distress Code(s): R06.03 - ACUTE RESPIRATORY DISTRESS (7) Pulmonary hypertension Code(s): I27.20 - PULMONARY HYPERTENSION, UNSPECIFIED (8) Acute on chronic diastolic heart failure Code(s): I50.33 - ACUTE ON CHRONIC DIASTOLIC (CONGESTIVE) HEART FAILURE
[2018-06-20 08:29] LABS: BASO % 0.7 % (0-2.0); EOS % 8.2 % (0-4.5); HEMATOCRIT 32.7 % (32.4-45.2); HEMOGLOBIN 10.3 GM/dl (10.7-15.3); LYMPH % 14.3 % (8-40); MCH 23.1 pg (25.7-33.7); MCHC 31.5 g/dl (32.0-36.0); MEAN CELL VOLUME 73.1 fl (80-96); MEAN PLT VOLUME 9.1 fl (7.5-11.1); MONO % 11.3 % (3.8-10.2); NEUT % 65.5 % (42.8-82.8); PLATELET COUNT 335 K/MM3 (134-434); RBC 4.47 M/mm3 (3.60-5.2); WHITE BLOOD COUNT 5.9 K/mm3 (4.0-10.8)
[2018-06-20 08:45] LABS: ANION GAP 6 (8-16); BLOOD UREA NITROGEN 7 mg/dl (7-18); CALCIUM 7.9 mg/dl (8.4-10.2); CHLORIDE 89 mmol/L (98-107); CO2 37 mmol/L (22-28); GLUCOSE,RANDOM 139 mg/dl (74-106); MAGNESIUM 1.7 mg/dL (1.8-2.4); PHOSPHOROUS 3.3 mg/dl (2.5-4.6); POTASSIUM 3.5 mmol/L (3.5-5.1); SODIUM 132 mmol/L (136-145)
[2018-06-20 09:02] LABS: CREATININE < 0.5 mg/dl (0.6-1.3)
[2018-06-20] MEDS ORDERED: MAGNESIUM SULFATE IN WATER 2 GM/50 ML IVPB IVPB ONE (09:30)
[2018-06-20] MEDS ORDERED: PT OWN MED DRAWER 7, Y5N ONE ×2 (09:33→21:28)
[2018-06-20] MEDS: LOSARTAN POTASSIUM 50 MG TABLET (FP) PO SCH (09:35)
[2018-06-20] MEDS: POTASSIUM CHLORIDE TABS 20 MEQ TABLET.ER (FP) PO SCH ×2 (09:35→21:42)
[2018-06-20] MEDS: POLYETHYLENE GLYCOL 3350 119 GM BTL PO SCH ×3 (09:35→17:20)
[2018-06-20] MEDS: CEFUROXIME AXETIL 250 MG TABLET PO SCH ×2 (09:35→21:42)
[2018-06-20] MEDS: ASPIRIN 81 MG CHEWABLE TABLETS PO SCH (09:35)
[2018-06-20] MEDS: guaiFENesin 600 MG TABLET.ER (FP) PO SCH ×2 (09:35→21:30)
[2018-06-20] MEDS: FERROUS SO4 325 MG TABLET (FP) PO SCH ×2 (09:35→21:42)
[2018-06-20] MEDS: LACTOBACILLUS ACIDOPHILUS 1 TABLET PO SCH (09:35)
[2018-06-20] MEDS: FUROSEMIDE 40 MG TABLET (FP) PO SCH (09:35)
[2018-06-20] MEDS: MINERAL OIL/PETROLAT/WATER TOPICAL CREAM 454 GM JAR TP SCH ×2 (09:35→21:42)
[2018-06-20] MEDS: ATENOLOL 50 MG TABLET (FP) PO SCH (09:35)
[2018-06-20] MEDS: DOCUSATE SODIUM 100 MG CAPSULE (FP) PO SCH ×2 (09:38→21:42)
[2018-06-20] MEDS: PANTOPRAZOLE SODIUM 40 MG VIAL IVPUSH SCH (10:25)
--- NOTE | 2018-06-20 12:25 | PN ---
Physical Exam: SUBJECTIVE: Patient seen and examined, patient is sitting up in bedside recliner reports feeling tired denies any chest pain or shortness of breath OBJECTIVE:patient is a 87 year-old female with a PMH significant for CVA, afib not on anti-coagulation, diastolic heart failure, anemia, diet-controlled diabetes, breast cancer, and hypothyroidism. Admitted for acute congestive heart failure exacerbation, anemia, and UTI Vital Signs Period Temp Pulse Resp BP Sys/De La O Pulse Ox Last 24 Hr 97.9 F-98.9 F 64-92 17-20 123-130/41-52 96-100 GENERAL: The patient is awake, alert, and fully oriented, in no acute distress. HEAD: Normal with no signs of trauma. EYES: PERRL, extraocular movements intact, sclera anicteric, conjunctiva clear. No ptosis. ENT: Ears normal, nares patent, oropharynx clear without exudates, moist mucous membranes. NECK: Trachea midline, full range of motion, supple. LUNGS: Breath sounds equal, clear to auscultation bilaterally to apexes, diminished to bases, no wheezes, no crackles, no accessory muscle use. HEART: irregular rate and rhythm, S1, S2 without murmur, rub or gallop. ABDOMEN: Soft, nontender, nondistended, normoactive bowel sounds, no guarding, no rebound, no hepatosplenomegaly, no masses. EXTREMITIES: 2+ pulses, warm, well-perfused, no edema. NEUROLOGICAL: Cranial nerves II through XII grossly intact. Normal speech, gait not observed. PSYCH: Normal mood, normal affect. SKIN: Warm, dry, normal turgor, no rashes or lesions noted Laboratory Results - last 24 hr 06/19/18 06/20/18 06/20/18 21:28 06:00 08:00 WBC 5.9 RBC 4.47 Hgb 10.3 L Hct 32.7 MCV 73.1 L MCH 23.1 L MCHC 31.5 L RDW 27.0 H Plt Count 335 MPV 9.1 Absolute Neuts (auto) 3.9 Neutrophils % 65.5 Lymphocytes % 14.3 Monocytes % 11.3 H Eosinophils % 8.2 H Basophils % 0.7 Sodium Potassium Chloride Carbon Dioxide Anion Gap BUN Creatinine Creat Clearance w eGFR POC Glucometer 123 128 Random Glucose Calcium Phosphorus Magnesium 06/20/18 06/20/18 08:00 11:27 WBC RBC Hgb Hct MCV MCH MCHC RDW Plt Count MPV Absolute Neuts (auto) Neutrophils % Lymphocytes % Monocytes % Eosinophils % Basophils % Sodium 132 L Potassium 3.5 Chloride 89 L Carbon Dioxide 37 H Anion Gap 6 L BUN 7 Creatinine < 0.5 L Creat Clearance w eGFR > 60 POC Glucometer 203 Random Glucose 139 H Calcium 7.9 L Phosphorus 3.3 Magnesium 1.7 L Active Medications Generic Name Dose Route Start Last Admin Trade Name Freq PRN Reason Stop Dose Admin Albuterol/Ipratropium 1 amp 06/14/18 08:33 06/20/18 11:46 Duoneb - NEB 1 amp QIDR [facility] Administration Aspirin 81 mg 06/17/18 10:00 06/20/18 09:35 Asa - PO 81 mg DAILY [facility] Administration Atenolol 50 mg 06/13/18 10:00 06/20/18 09:35 Tenormin - PO 50 mg DAILY [facility] Administration Cefuroxime Axetil 250 mg 06/19/18 10:30 06/20/18 09:35 Ceftin - PO 250 mg BID [facility] Administration Diltiazem HCl 180 mg 06/12/18 21:43 06/20/18 09:35 Cardizem Cd - PO 180 mg DAILY [facility] Administration Docusate Sodium 100 mg 06/16/18 12:00 06/20/18 09:38 Colace - PO 100 mg BID [facility] Administration Ferrous Sulfate 325 mg 06/14/18 11:30 06/20/18 09:35 Feosol - PO 325 mg BID [facility] Administration Furosemide 40 mg 06/18/18 10:00 06/20/18 09:35 Lasix - PO 40 mg DAILY [facility] Administration Guaifenesin 600 mg 06/16/18 12:00 06/20/18 09:35 Mucinex - PO 600 mg BID [facility] Administration Insulin Aspart 1 vial 06/12/18 16:30 06/20/18 11:46 Novolog Vial Sliding Scale - SQ 2 units ACHS [facility] Administration Protocol Lactobacillus Acidophilus 1 tab 06/14/18 11:00 06/20/18 09:35 Bacid - PO 1 tab DAILY [facility] Administration Levothyroxine Sodium 88 mcg 06/13/18 07:00 06/20/18 06:16 Synthroid - PO 88 mcg DAILY@0700 [facility] Administration Losartan Potassium 50 mg 06/15/18 10:00 06/20/18 09:35 Cozaar - PO 50 mg DAILY [facility] Administration Multi-Ingredient Lotion 1 applic 06/12/18 13:15 06/20/18 09:35 Eucerin (Large Jar) - TP 1 applic BID [facility] Administration Ondansetron HCl 4 mg 06/14/18 16:43 06/14/18 17:42 Zofran Injection IVPUSH 4 mg Q6H PRN Administration NAUSEA Pantoprazole Sodium 40 mg 06/14/18 14:30 06/20/18 10:25 Protonix Iv IVPUSH 40 mg DAILY [facility] Administration Polyethylene Glycol 17 gm 06/19/18 14:45 06/20/18 09:35 Miralax (For Daily Use) - PO 17 gm TID@1000,1400,1800 [facility] Administration Potassium Chloride 20 meq 06/20/18 10:00 06/20/18 09:35 K-Dur - PO 20 meq BID [facility] Administration Microbiology 06/16/18 15:00 Pleural Fluid AFB Smear Concentration - Final 06/16/18 15:00 Pleural Fluid Mycobacterial Culture - Preliminary 06/16/18 15:00 Pleural Fluid Gram Stain - Final 06/16/18 15:00 Pleural Fluid Body Fluid Culture - Final NO GROWTH OF AEROBIC ORGANISMS AFTER 48 HOURS INCUBATION 06/16/18 15:00 Pleural Fluid Anaerobic Culture - Final NO ANAEROBES WERE ISOLATED 06/14/18 08:30 Blood - Peripheral Venous Blood Culture - Final NO GROWTH AFTER 5 DAYS INCUBATION 06/14/18 08:30 Blood - Peripheral Venous Blood Culture - Final NO GROWTH AFTER 5 DAYS INCUBATION 06/16/18 10:00 Sputum - Expectorated Gram Stain - Final 06/16/18 10:00 Sputum - Expectorated Sputum Culture - Final NORMAL RESPIRATORY EFRAIN 06/16/18 15:00 Pleural Fluid JACOB Preparation - Preliminary 06/16/18 15:00 Pleural Fluid Fungal Culture - Preliminary 06/14/18 10:30 Urine - Urine [place] Urine Culture - Final Escherichia Coli 06/14/18 17:14 Urine For Antigen Detection Legionella Antigen - Final, negative 06/14/18 17:14 Urine For Antigen Detection Streptococcus pneumoniae Antigen (M - Final, negative IMAGING cta of chest: no CT evidence of pulmonary embolism, pulmonary vascular congestion with cardiomegaly, bilateral pleural effusion Head CT (June 14 2018): no acute pathology echo LV WNL pleural effusion severe TR RVSP elevated PVR carotid doppler: extensive atherosclerotic disease with stenosis in the 80%-90% range involving the right ICA and in the 60-79% range involving the left carotid bifurcation ASSESSMENT/PLAN: 1) cardiology Acute on chronic diastolic heart failure - 7.3kg weight loss noted, continue lasix 40mg qd - strict i/o and daily weights Atrial fibrillation -rate well-controlled, continue diltiazem and atenolol -not on anticoagulation patient's preference Carotid artery stenosis -significant bilateral disease; carotid endarterectomy as an outpatient 2) pulm Acute hypercapnic respiratory failure, resolved -BIPAP as needed Bilateral pneumonia Bilateral pleural effusions s/p thoracentesis - rocephin 06/15 -06/19 transition to ceftin 250mg bid 3) heme Acute blood loss anemia - occult stool was positive, transfused 2U PRBC, h/h stable, continue iron supplements - endo completed 06/20, no acute process noted, pt declined GoLitely, discussed with Dr Simpson, GI continue Miralax tid and clear liquid diet, attempt colonscopy on 06/21/18 4) endo Hypothyroidism -abnormal TSH, free T4 wnl, continue levothyroxine NIDDM -Novolog sliding scale coverage 5) E. coli UTI - continue ceftin DVT prophylaxis: SCDs Physical therapy Dispo:Requires Inpatient Care. Visit type - Emergency Visit Emergency Visit: Yes ED Registration Date: 06/12/18 Care time: The patient presented to the Emergency Department on the above date and was hospitalized for further evaluation of their emergent condition. - New Patient This patient is new to me today: No - Critical Care Critical Care patient: No - Discharge Referral Referred to [facility] Med [facility].C[facility] No
--- NOTE | 2018-06-20 14:54 | PATH ---
Cytology Non-Gynecological Report Patient Name: JEN THOMASON Med. Rec. #: [id number] /Age/Gender: 1930 (Age: 87) / F Account: [id number] Location: [facility] MED[facility] Taken: 06/16/2018 Received: 06/19/2018 Reported: 06/20/2018 Physicians: Lanny Ly M.D. Specimen(s) Received RIGHT PLEURAL FLUID Clinical History Pleural effusion Final Diagnosis PLEURAL FLUID, THORACENTESIS: SATISFACTORY FOR EVALUATION NO MALIGNANT CELLS IDENTIFIED. MESOTHELIAL CELLS AND MACROPHAGES PRESENT. Electronically Signed Sima Hernández M.D. Gross Description Approximately 50cc of yellow fluid received fixed in 50% alcohol. Two cytofunnels and one cellblock prepared.
--- NOTE | 2018-06-20 15:34 | PATH ---
Surgical Pathology Report Patient Name: JEN THOMASON Med. Rec. #: [id number] /Age/Gender: 1930 (Age: 87) / F Account: [id number] Location: [facility] Taken: 06/19/2018 Received: 06/19/2018 Reported: 06/20/2018 Physicians: Dmitry Simpson M.D. Specimen(s) Received BX OF FUNDUS Clinical History Anemia, gastritis Final Diagnosis FUNDUS, BIOPSY: GASTRIC MUCOSA WITH MILD CHRONIC GASTRITIS AND FOCAL DILATED GLANDS. IMMUNOSTAIN IS NEGATIVE FOR H. PYLORI ORGANISMS. Electronically Signed Sima Hernández M.D. Gross Description Received in formalin, labeled "fundus" is a wisdom, irregular portion of of soft tissue measuring 0.3 cm. in greatest dimension. The specimen is submitted in toto in one cassette. VANESSA/06/19/2018 andres/06/19/2018
[2018-06-20] MEDS ORDERED: POLYETHYLENE GLYCOL 3350 119 GM BTL PO ONE ×2 (18:00→20:30)
[2018-06-21] MEDS: ALBUTEROL SO4 2.5/IPRATROPIUM 0.5 INH SOL 3 ML VIAL.NEB. NEB SCH ×3 (00:05→12:03)
[2018-06-21] MEDS: LEVOTHYROXINE NA 88 MCG TABLET (FP) PO SCH (06:05)
[2018-06-21] MEDS: INSULIN SLIDING SCALE (NOVOLOG) 1 VIAL SQ SCH ×4 (06:32→21:58)
[2018-06-21 08:30] LABS: BASO % 1.1 % (0-2.0); EOS % 7.4 % (0-4.5); HEMATOCRIT 32.5 % (32.4-45.2); HEMOGLOBIN 10.2 GM/dl (10.7-15.3); LYMPH % 23.2 % (8-40); MCH 23.1 pg (25.7-33.7); MCHC 31.4 g/dl (32.0-36.0); MEAN CELL VOLUME 73.6 fl (80-96); MONO % 11.5 % (3.8-10.2); NEUT % 56.8 % (42.8-82.8); PLATELET COUNT 337 K/MM3 (134-434); RBC 4.42 M/mm3 (3.60-5.2); WHITE BLOOD COUNT 6.4 K/mm3 (4.0-10.8)
[2018-06-21 08:32] LABS: ANION GAP 8 (8-16); BLOOD UREA NITROGEN 7 mg/dl (7-18); CALCIUM 8.1 mg/dl (8.4-10.2); CHLORIDE 89 mmol/L (98-107); CO2 36 mmol/L (22-28); CREATININE 0.5 mg/dl (0.6-1.3); GLUCOSE,RANDOM 125 mg/dl (74-106); MAGNESIUM 1.8 mg/dL (1.8-2.4); PHOSPHOROUS 3.4 mg/dl (2.5-4.6); POTASSIUM 3.6 mmol/L (3.5-5.1); SODIUM 133 mmol/L (136-145)
--- NOTE | 2018-06-21 08:58 | PN ---
Progress Note, Physician History of Present Illness: Dyspnea improved, now on NC. Post right thoracentesis->transudative fluid. EGD biopsy shows gastritis. - Current Medication List Current Medications: Active Medications Albuterol/Ipratropium (Duoneb -) 1 amp NEB QIDR [facility] Last Admin: 06/21/18 06:05 Dose: 1 amp Aspirin (Asa -) 81 mg PO DAILY [facility] Last Admin: 06/20/18 09:35 Dose: 81 mg Atenolol (Tenormin -) 50 mg PO DAILY [facility] Last Admin: 06/20/18 09:35 Dose: 50 mg Cefuroxime Axetil (Ceftin -) 250 mg PO BID [facility] Last Admin: 06/20/18 21:42 Dose: 250 mg Diltiazem HCl (Cardizem Cd -) 180 mg PO DAILY [facility] Last Admin: 06/20/18 09:35 Dose: 180 mg Docusate Sodium (Colace -) 100 mg PO BID [facility] Last Admin: 06/20/18 21:42 Dose: 100 mg Ferrous Sulfate (Feosol -) 325 mg PO BID [facility] Last Admin: 06/20/18 21:42 Dose: 325 mg Furosemide (Lasix -) 40 mg PO DAILY [facility] Last Admin: 06/20/18 09:35 Dose: 40 mg Guaifenesin (Mucinex -) 600 mg PO BID [facility] Last Admin: 06/20/18 21:30 Dose: 600 mg Insulin Aspart (Novolog Vial Sliding Scale -) 1 vial SQ ACHS [facility]; Protocol Last Admin: 06/21/18 06:32 Dose: Not Given Lactobacillus Acidophilus (Bacid -) 1 tab PO DAILY [facility] Last Admin: 06/20/18 09:35 Dose: 1 tab Levothyroxine Sodium (Synthroid -) 88 mcg PO DAILY@0700 [facility] Last Admin: 06/21/18 06:05 Dose: 88 mcg Losartan Potassium (Cozaar -) 50 mg PO DAILY [facility] Last Admin: 06/20/18 09:35 Dose: 50 mg Multi-Ingredient Lotion (Eucerin (Large Jar) -) 1 applic TP BID [facility] Last Admin: 06/20/18 21:42 Dose: 1 applic Ondansetron HCl (Zofran Injection) 4 mg IVPUSH Q6H PRN PRN Reason: NAUSEA Last Admin: 06/14/18 17:42 Dose: 4 mg Pantoprazole Sodium (Protonix Iv) 40 mg IVPUSH DAILY [facility] Last Admin: 06/20/18 10:25 Dose: 40 mg Polyethylene Glycol (Miralax (For Daily Use) -) 17 gm PO TID@1000,1400,1800 [facility] Last Admin: 06/20/18 17:20 Dose: 17 gm Potassium Chloride (K-Dur -) 20 meq PO BID [facility] Last Admin: 06/20/18 21:42 Dose: 20 meq Sodium Phosphate (Fleet Adult Rectal Enema -) 133 ml DE BID [facility] Stop: 06/21/18 22:01 - Objective Vital Signs: Vital Signs Temperature 99.1 F 06/21/18 05:44 Pulse Rate 90 06/21/18 05:44 Respiratory Rate 19 06/21/18 05:44 Blood Pressure 116/58 06/21/18 05:44 O2 Sat by Pulse Oximetry (%) 93 L 06/20/18 22:40 Constitutional: Yes: No Distress, Calm Neck: Yes: Supple Cardiovascular: Yes: Regular Rate and Rhythm Respiratory: Yes: Regular, Diminished, On Nasal O2 Gastrointestinal: Yes: Normal Bowel Sounds, Soft Edema: No Labs: CBC, BMP 06/21/18 07:30 06/21/18 07:30 INR, PTT INR 1.27 (0.82-1.09) H 06/12/18 07:47 Problem List - Problems (1) Acute on chronic diastolic heart failure Code(s): I50.33 - ACUTE ON CHRONIC DIASTOLIC (CONGESTIVE) HEART FAILURE (2) Atrial fibrillation Code(s): I48.91 - UNSPECIFIED ATRIAL FIBRILLATION Qualifiers: Atrial fibrillation type: persistent Qualified Code(s): I48.1 - Persistent atrial fibrillation (3) Pleural effusion Code(s): J90 - PLEURAL EFFUSION, NOT ELSEWHERE CLASSIFIED (4) Acute hypercapnic respiratory failure Code(s): J96.02 - ACUTE RESPIRATORY FAILURE WITH HYPERCAPNIA (5) Hypothyroidism Code(s): E03.9 - HYPOTHYROIDISM, UNSPECIFIED Qualifiers: Hypothyroidism type: unspecified Qualified Code(s): E03.9 - Hypothyroidism , unspecified Assessment/Plan cta of chest: no CT evidence of pulmonary embolism, pulmonary vascular congestion with cardiomegaly, bilateral pleural effusion Head CT (June 14 2018): no acute pathology echo LV WNL pleural effusion severe TR RVSP elevated PVR 1. Acute hypercapneic respiratory failure referable to 2. Acute on chronic diastolic heart failure, pulm HTN with pleural effusions post right thoracentesis->transudate improved 3. Persistent afib, not on a/c as patient has declined in past 4. Hypothyroidism 5. Microcytic anemia 6. Givens-sensitive e. coli UTI 7. Carotid stenosis R>L planned for right CEA 8. Hyponatremia P:1. Oral diuretics with monitor diuretic response, renal function and electolytes, replete K 2. Readdress anticoagulation indications with patient, placed on ASA 81 qd in interim 3. F/u thoracentesis right effusion fluid studies 4. Continue atenolol 50 qd, Cardizem CD 180 qd, losartan 50 qd 5. BD, empiric abx, bipap and O2 as needed, ambulatory saO2 to determine home O2 eligibility 6. Await colonoscopy
[2018-06-21] MEDS: PANTOPRAZOLE SODIUM 40 MG VIAL IVPUSH SCH (09:34)
[2018-06-21] MEDS: SODIUM PHOSPHATE/NA BIPHOS 133 ML ENEMA PR SCH ×2 (09:34→21:57)
[2018-06-21] MEDS: FERROUS SO4 325 MG TABLET (FP) PO SCH ×2 (09:35→21:56)
[2018-06-21] MEDS: guaiFENesin 600 MG TABLET.ER (FP) PO SCH ×2 (09:35→21:56)
[2018-06-21] MEDS: FUROSEMIDE 40 MG TABLET (FP) PO SCH (09:35)
[2018-06-21] MEDS: ASPIRIN 81 MG CHEWABLE TABLETS PO SCH (09:35)
[2018-06-21] MEDS: LOSARTAN POTASSIUM 50 MG TABLET (FP) PO SCH (09:35)
[2018-06-21] MEDS: POTASSIUM CHLORIDE TABS 20 MEQ TABLET.ER (FP) PO SCH ×2 (09:35→21:56)
[2018-06-21] MEDS: ATENOLOL 50 MG TABLET (FP) PO SCH (09:35)
[2018-06-21] MEDS: LACTOBACILLUS ACIDOPHILUS 1 TABLET PO SCH (09:35)
[2018-06-21] MEDS: DOCUSATE SODIUM 100 MG CAPSULE (FP) PO SCH ×2 (09:35→21:56)
[2018-06-21] MEDS: CEFUROXIME AXETIL 250 MG TABLET PO SCH ×2 (09:38→21:57)
[2018-06-21] MEDS ORDERED: PT OWN MED DRAWER 7, Y5N ONE ×2 (09:38→21:02)
[2018-06-21] MEDS: MINERAL OIL/PETROLAT/WATER TOPICAL CREAM 454 GM JAR TP SCH ×2 (09:38→21:57)
[2018-06-21] MEDS: POLYETHYLENE GLYCOL 3350 119 GM BTL PO SCH ×3 (09:38→18:20)
--- NOTE | 2018-06-21 10:25 | PN ---
Physical Exam: SUBJECTIVE: Patient seen and examined, reports feeling well sitting in bedside recliner, tolerating clear liquid tray reports one bowel movement yesterday evening OBJECTIVE:patient is a 87 year-old female with a PMH significant for CVA, afib not on anti-coagulation, diastolic heart failure, anemia, diet-controlled diabetes, breast cancer, and hypothyroidism. Admitted for acute congestive heart failure exacerbation, anemia, and UTI Vital Signs Period Temp Pulse Resp BP Sys/De La O Pulse Ox Last 24 Hr 98.1 F-99.1 F 78-90 17-19 100-122/37-58 93-98 GENERAL: The patient is awake, alert, and fully oriented, in no acute distress. HEAD: Normal with no signs of trauma. EYES: PERRL, extraocular movements intact, sclera anicteric, conjunctiva clear. No ptosis. ENT: Ears normal, nares patent, oropharynx clear without exudates, moist mucous membranes. NECK: Trachea midline, full range of motion, supple. LUNGS: Breath sounds equal, clear to auscultation bilaterally to apexes, diminished to bases, no wheezes, no crackles, no accessory muscle use. HEART: irregular rate and rhythm, S1, S2 without murmur, rub or gallop. ABDOMEN: Soft, nontender, nondistended, normoactive bowel sounds, no guarding, no rebound, no hepatosplenomegaly, no masses. EXTREMITIES: 2+ pulses, warm, well-perfused, +1 pitting edema NEUROLOGICAL: Cranial nerves II through XII grossly intact. Normal speech, gait not observed. PSYCH: Normal mood, normal affect. SKIN: Warm, dry, normal turgor, no rashes or lesions noted Laboratory Results - last 24 hr 06/20/18 06/20/18 06/20/18 11:27 16:24 21:07 WBC RBC Hgb Hct MCV MCH MCHC RDW Plt Count MPV Absolute Neuts (auto) Neutrophils % Lymphocytes % Monocytes % Eosinophils % Basophils % Sodium Potassium Chloride Carbon Dioxide Anion Gap BUN Creatinine Creat Clearance w eGFR POC Glucometer 203 109 191 Random Glucose Calcium Phosphorus Magnesium 06/21/18 06/21/18 06/21/18 06:14 07:30 07:30 WBC 6.4 RBC 4.42 Hgb 10.2 L Hct 32.5 MCV 73.6 L MCH 23.1 L MCHC 31.4 L RDW 28.0 H Plt Count 337 MPV 9.0 Absolute Neuts (auto) 3.5 Neutrophils % 56.8 Lymphocytes % 23.2 Monocytes % 11.5 H Eosinophils % 7.4 H Basophils % 1.1 Sodium 133 L Potassium 3.6 Chloride 89 L Carbon Dioxide 36 H Anion Gap 8 BUN 7 Creatinine 0.5 L Creat Clearance w eGFR > 60 POC Glucometer 128 Random Glucose 125 H Calcium 8.1 L Phosphorus 3.4 Magnesium 1.8 Active Medications Generic Name Dose Route Start Last Admin Trade Name Freq PRN Reason Stop Dose Admin Albuterol/Ipratropium 1 amp 06/14/18 08:33 06/21/18 06:05 Duoneb - NEB 1 amp QIDR [facility] Administration Aspirin 81 mg 06/17/18 10:00 06/21/18 09:35 Asa - PO 81 mg DAILY [facility] Administration Atenolol 50 mg 06/13/18 10:00 06/21/18 09:35 Tenormin - PO 50 mg DAILY [facility] Administration Cefuroxime Axetil 250 mg 06/19/18 10:30 06/21/18 09:38 Ceftin - PO 250 mg BID [facility] Administration Diltiazem HCl 180 mg 06/12/18 21:43 06/21/18 09:35 Cardizem Cd - PO 180 mg DAILY [facility] Administration Docusate Sodium 100 mg 06/16/18 12:00 06/21/18 09:35 Colace - PO 100 mg BID [facility] Administration Ferrous Sulfate 325 mg 06/14/18 11:30 06/21/18 09:35 Feosol - PO 325 mg BID [facility] Administration Furosemide 40 mg 06/18/18 10:00 06/21/18 09:35 Lasix - PO 40 mg DAILY [facility] Administration Guaifenesin 600 mg 06/16/18 12:00 06/21/18 09:35 Mucinex - PO 600 mg BID [facility] Administration Insulin Aspart 1 vial 06/12/18 16:30 06/21/18 06:32 Novolog Vial Sliding Scale - SQ Not Given ACHS [facility] Protocol Lactobacillus Acidophilus 1 tab 06/14/18 11:00 06/21/18 09:35 Bacid - PO 1 tab DAILY [facility] Administration Levothyroxine Sodium 88 mcg 06/13/18 07:00 06/21/18 06:05 Synthroid - PO 88 mcg DAILY@0700 [facility] Administration Losartan Potassium 50 mg 06/15/18 10:00 06/21/18 09:35 Cozaar - PO 50 mg DAILY [facility] Administration Multi-Ingredient Lotion 1 applic 06/12/18 13:15 06/21/18 09:38 Eucerin (Large Jar) - TP 1 applic BID [facility] Administration Ondansetron HCl 4 mg 06/14/18 16:43 06/14/18 17:42 Zofran Injection IVPUSH 4 mg Q6H PRN Administration NAUSEA Pantoprazole Sodium 40 mg 06/14/18 14:30 06/21/18 09:34 Protonix Iv IVPUSH 40 mg DAILY [facility] Administration Polyethylene Glycol 17 gm 06/19/18 14:45 06/21/18 09:38 Miralax (For Daily Use) - PO 17 gm TID@1000,1400,1800 [facility] Administration Potassium Chloride 20 meq 06/20/18 10:00 06/21/18 09:35 K-Dur - PO 20 meq BID [facility] Administration Sodium Phosphate 133 ml 06/21/18 10:00 06/21/18 09:34 Fleet Adult Rectal Enema - [place] 06/21/18 22:01 133 ml BID [facility] Administration Microbiology 06/16/18 15:00 Pleural Fluid AFB Smear Concentration - Final 06/16/18 15:00 Pleural Fluid Mycobacterial Culture - Preliminary 06/16/18 15:00 Pleural Fluid Gram Stain - Final 06/16/18 15:00 Pleural Fluid Body Fluid Culture - Final NO GROWTH OF AEROBIC ORGANISMS AFTER 48 HOURS INCUBATION 06/16/18 15:00 Pleural Fluid Anaerobic Culture - Final NO ANAEROBES WERE ISOLATED 06/14/18 08:30 Blood - Peripheral Venous Blood Culture - Final NO GROWTH AFTER 5 DAYS INCUBATION 06/14/18 08:30 Blood - Peripheral Venous Blood Culture - Final NO GROWTH AFTER 5 DAYS INCUBATION 06/16/18 10:00 Sputum - Expectorated Gram Stain - Final 06/16/18 10:00 Sputum - Expectorated Sputum Culture - Final NORMAL RESPIRATORY EFRAIN 06/16/18 15:00 Pleural Fluid JACOB Preparation - Preliminary 06/16/18 15:00 Pleural Fluid Fungal Culture - Preliminary 06/14/18 10:30 Urine - Urine [place] Urine Culture - Final Escherichia Coli 06/14/18 17:14 Urine For Antigen Detection Legionella Antigen - Final, negative 07/25/18 17:14 Urine For Antigen Detection Streptococcus pneumoniae Antigen (M - Final, negative ASSESSMENT/PLAN: IMAGING cta of chest: no CT evidence of pulmonary embolism, pulmonary vascular congestion with cardiomegaly, bilateral pleural effusion Head CT (June 14 2018): no acute pathology echo LV WNL pleural effusion severe TR RVSP elevated PVR carotid doppler: extensive atherosclerotic disease with stenosis in the 80%-90% range involving the right ICA and in the 60-79% range involving the left carotid bifurcation ASSESSMENT/PLAN: 1) cardiology Acute on chronic diastolic heart failure - 7.3kg weight loss noted, continue lasix 40mg qd - strict i/o and daily weights Atrial fibrillation -rate well-controlled, continue diltiazem and atenolol -not on anticoagulation patient's preference Carotid artery stenosis -significant bilateral disease; carotid endarterectomy as an outpatient 2) pulm Acute hypercapnic respiratory failure, resolved -BIPAP as needed Bilateral pneumonia Bilateral pleural effusions s/p thoracentesis - rocephin 06/15 -06/19 transitioned to ceftin 250mg bid 3) heme Acute blood loss anemia - occult stool was positive, transfused 2U PRBC, h/h stable, continue iron supplements - endo completed 06/20, no acute process noted, pt declined [facility], discussed with Dr Simpson, GI continue Miralax tid and clear liquid diet, she had one bowel movement yesterday evening will require another day of MiraLAX, attempt colonscopy on , 06/22/2018 4) endo Hypothyroidism -abnormal TSH, free T4 wnl, continue levothyroxine NIDDM -Novolog sliding scale coverage 5) E. coli UTI - continue ceftin DVT prophylaxis: SCDs Physical therapy Dispo:Requires Inpatient Care. Visit type - Emergency Visit Emergency Visit: Yes ED Registration Date: 06/12/18 Care time: The patient presented to the Emergency Department on the above date and was hospitalized for further evaluation of their emergent condition. - New Patient This patient is new to me today: No - Critical Care Critical Care patient: No - Discharge Referral Referred to [facility] No
[2018-06-21] MEDS ORDERED: INSULIN (NOVOLOG) ASPART 100 UNITS/ML 10ML VIAL ONE (11:48)
[2018-06-21] MEDS ORDERED: ALBUTEROL SO4 2.5/IPRATROPIUM 0.5 INH SOL 3 ML VIAL.NEB. NEB PRN (13:28)
[2018-06-22] MEDS: LEVOTHYROXINE NA 88 MCG TABLET (FP) PO SCH (06:07)
[2018-06-22] MEDS: INSULIN SLIDING SCALE (NOVOLOG) 1 VIAL SQ SCH ×3 (06:19→21:47)
--- NOTE | 2018-06-22 07:23 | PN ---
Progress Note, Physician - Current Medication List Current Medications: Active Medications Albuterol/Ipratropium (Duoneb -) 1 amp NEB Q6H PRN PRN Reason: SHORTNESS OF BREATH Aspirin (Asa -) [address] [facility] Last Admin: 06/21/18 09:35 Dose: 81 mg Atenolol (Tenormin -) [address] [facility] Last Admin: 06/21/18 09:35 Dose: 50 mg Cefuroxime Axetil (Ceftin -) [address] [facility] Last Admin: 06/21/18 21:57 Dose: 250 mg Diltiazem HCl (Cardizem Cd -) [address] [facility] Last Admin: 06/21/18 09:35 Dose: 180 mg Docusate Sodium (Colace -) [address] [facility] Last Admin: 06/21/18 21:56 Dose: 100 mg Ferrous Sulfate (Feosol -) [address] [facility] Last Admin: 06/21/18 21:56 Dose: 325 mg Furosemide (Lasix -) [address] [facility] Last Admin: 06/21/18 09:35 Dose: 40 mg Guaifenesin (Mucinex -) [address] [facility] Last Admin: 06/21/18 21:56 Dose: 600 mg Insulin Aspart (Novolog Vial Sliding Scale -) 1 vial SQ [facility]; Protocol Last Admin: 06/22/18 06:19 Dose: Not Given Lactobacillus Acidophilus (Bacid -) [address] [facility] Last Admin: 06/21/18 09:35 Dose: 1 tab Levothyroxine Sodium (Synthroid -) 88 mcg PO DAILY@0700 [facility] Last Admin: 06/22/18 06:07 Dose: Not Given Losartan Potassium (Cozaar -) [address] [facility] Last Admin: 06/21/18 09:35 Dose: 50 mg Multi-Ingredient Lotion (Eucerin (Large Jar) -) [address] [facility] Last Admin: 06/21/18 21:57 Dose: 1 applic Ondansetron HCl (Zofran Injection) 4 mg IVPUSH Q6H PRN PRN Reason: NAUSEA Last Admin: 06/14/18 17:42 Dose: 4 mg Pantoprazole Sodium (Protonix Iv) [address] [facility] Last Admin: 06/21/18 09:34 Dose: 40 mg Polyethylene Glycol (Miralax (For Daily Use) -) 17 gm PO TID@1000,1400,1800 [facility] Last Admin: 06/21/18 18:20 Dose: 17 gm Potassium Chloride (K-Dur -) [address] [facility] Last Admin: 06/21/18 21:56 Dose: 20 meq - Objective Vital Signs: Vital Signs Temperature 98.4 F 06/22/18 06:00 Pulse Rate 108 H 06/22/18 06:00 Respiratory Rate 18 06/22/18 06:00 Blood Pressure 113/42 06/22/18 06:00 O2 Sat by Pulse Oximetry (%) 92 L 06/22/18 06:26 Labs: CBC, BMP 06/21/18 07:30 06/21/18 07:30 INR, PTT INR 1.27 (0.82-1.09) H 06/12/18 07:47 Problem List - Problems (1) Acute on chronic respiratory failure with hypoxia and hypercapnia Code(s): J96.21 - ACUTE AND CHRONIC RESPIRATORY FAILURE WITH HYPOXIA; J96.22 - ACUTE AND CHRONIC RESPIRATORY FAILURE WITH HYPERCAPNIA (2) Acute hypercapnic respiratory failure Code(s): J96.02 - ACUTE RESPIRATORY FAILURE WITH HYPERCAPNIA (3) Atrial fibrillation Code(s): I48.91 - UNSPECIFIED ATRIAL FIBRILLATION Qualifiers: Atrial fibrillation type: persistent Qualified Code(s): I48.1 - Persistent atrial fibrillation (4) Hypothyroidism Code(s): E03.9 - HYPOTHYROIDISM, UNSPECIFIED Qualifiers: Hypothyroidism type: unspecified Qualified Code(s): E03.9 - Hypothyroidism , unspecified (5) Pleural effusion Code(s): J90 - PLEURAL EFFUSION, NOT ELSEWHERE CLASSIFIED (6) Respiratory distress Code(s): R06.03 - ACUTE RESPIRATORY DISTRESS (7) Pulmonary hypertension Code(s): I27.20 - PULMONARY HYPERTENSION, UNSPECIFIED (8) Acute on chronic diastolic heart failure Code(s): I50.33 - ACUTE ON CHRONIC DIASTOLIC (CONGESTIVE) HEART FAILURE Assessment/Plan IMP ACUTE ON CHRONIC HYPOXEMIC/HYPERCAPNEIC RESPIRATORY FAILURE IMPROVED ACUTE ON CHRONIC DIASTOLIC HF IMPROVED PULMONARY HYPERTENSION ANEMIA BILATERAL PLEURAL EFFUSIONS TRANSUDATE RUL NODULE ? MALIGNANT ,? INFLAMMATORY H/O BREAST CA S/P R MASTECTOMY PLAN LASIX PO SUPPLEMENTAL O2 TO MAINTAIN O2 SAT 90% OR > INHALED BRONCHODILATORS PRN F/U CHEST CT 3 MONTHS GI W/U IN PROGRESS AMBULATORY O2 SAT PRIOR TO DISCHARGE TO DETERMINE IF PT IS A CANDIDATE FOR HOME O2 DR BLEDSOE Problem List - Problems (1) Acute on chronic respiratory failure with hypoxia and hypercapnia Code(s): J96.21 - ACUTE AND CHRONIC RESPIRATORY FAILURE WITH HYPOXIA; J96.22 - ACUTE AND CHRONIC RESPIRATORY FAILURE WITH HYPERCAPNIA (2) Acute hypercapnic respiratory failure Code(s): J96.02 - ACUTE RESPIRATORY FAILURE WITH HYPERCAPNIA (3) Atrial fibrillation Code(s): I48.91 - UNSPECIFIED ATRIAL FIBRILLATION Qualifiers: Atrial fibrillation type: persistent Qualified Code(s): I48.1 - Persistent atrial fibrillation (4) Hypothyroidism Code(s): E03.9 - HYPOTHYROIDISM, UNSPECIFIED Qualifiers: Hypothyroidism type: unspecified Qualified Code(s): E03.9 - Hypothyroidism , unspecified (5) Pleural effusion Code(s): J90 - PLEURAL EFFUSION, NOT ELSEWHERE CLASSIFIED (6) Respiratory distress Code(s): R06.03 - ACUTE RESPIRATORY DISTRESS (7) Pulmonary hypertension Code(s): I27.20 - PULMONARY HYPERTENSION, UNSPECIFIED (8) Acute on chronic diastolic heart failure Code(s): I50.33 - ACUTE ON CHRONIC DIASTOLIC (CONGESTIVE) HEART FAILURE
[2018-06-22] MEDS ORDERED: PROPOFOL 20 ML ONE ×2 (09:13→13:54)
[2018-06-22] MEDS ORDERED: LIDOCAINE HCL/PF 2% SDV 5ML VIAL ONE ×2 (09:13→13:54)
--- NOTE | 2018-06-22 10:07 | PN ---
Physical Exam: SUBJECTIVE: Patient seen and examined,evaluated patient in the endoscopy suite, abdominal distention noted during colonoscopy suggestive of perforation OBJECTIVE:patient is a 87 year-old female with a PMH significant for CVA, afib not on anti-coagulation, diastolic heart failure, anemia, diet-controlled diabetes, breast cancer, and hypothyroidism. Admitted for acute congestive heart failure exacerbation, anemia, and UTI Vital Signs Period Temp Pulse Resp BP Sys/De La O Pulse Ox Last 24 Hr 97.8 F-98.5 F 76-108 16-18 99-113/42-52 92-98 GENERAL: The patient is awake, alert, and fully oriented, in no acute distress. HEAD: Normal with no signs of trauma. EYES: PERRL, extraocular movements intact, sclera anicteric, conjunctiva clear. No ptosis. ENT: Ears normal, nares patent, oropharynx clear without exudates, moist mucous membranes. NECK: Trachea midline, full range of motion, supple. LUNGS: Breath sounds equal, clear to auscultation bilaterally to apexes, diminished to bases, no wheezes, no crackles, no accessory muscle use. HEART: irregular rate and rhythm, S1, S2 without murmur, rub or gallop. ABDOMEN:tympanic, distended, absent bowel sounds, no guarding, no rebound, no hepatosplenomegaly, no masses. EXTREMITIES: 2+ pulses, warm, well-perfused, +1 pitting edema NEUROLOGICAL: Cranial nerves II through XII grossly intact. Normal speech, gait not observed. PSYCH: Normal mood, normal affect. SKIN: Warm, dry, normal turgor, no rashes or lesions noted Laboratory Results - last 24 hr 06/21/18 06/21/18 06/21/18 11:34 17:09 21:51 POC Glucometer 184 146 138 06/22/18 06:16 POC Glucometer 147 CBC WBC 6.4 K/mm3 (4.0-10.8) 06/21/18 07:30 RBC 4.42 M/mm3 (3.60-5.2) 06/21/18 07:30 Hgb 10.2 GM/dl (10.7-15.3) L 06/21/18 07:30 Hct 32.5 % (32.4-45.2) 06/21/18 07:30 MCV 73.6 fl (80-96) L 06/21/18 07:30 MCH 23.1 pg (25.7-33.7) L 06/21/18 07:30 MCHC 31.4 g/dl (32.0-36.0) L 06/21/18 07:30 RDW 28.0 % (11.6-15.6) H 06/21/18 07:30 Plt Count 337 K/MM3 (134-434) 06/21/18 07:30 MPV 9.0 fl (7.5-11.1) 06/21/18 07:30 Absolute Neuts (auto) 3.5 # 06/21/18 07:30 Total Counted 100 06/12/18 07:25 Neutrophils % 56.8 % (42.8-82.8) 06/21/18 07:30 Neutrophils % (Manual) 71.0 % (42.8-82.8) 06/16/18 07:15 Lymphocytes % 23.2 % (8-40) 06/21/18 07:30 Lymphocytes % (Manual) 9.0 % (8-40) 06/16/18 07:15 Monocytes % 11.5 % (3.8-10.2) H 06/21/18 07:30 Monocytes % (Manual) 17 % (3.8-10.2) H* 06/16/18 07:15 Eosinophils % 7.4 % (0-4.5) H 06/21/18 07:30 Eosinophils % (Manual) 3.0 % (0-4.5) 06/16/18 07:15 Basophils % 1.1 % (0-2.0) 06/21/18 07:30 Nucleated RBC % 0 % (0-0) 06/12/18 07:25 Hypochromia 3+ 06/18/18 08:00 Platelet Estimate Adequate 06/18/18 08:00 Anisocytosis 3+ 06/18/18 08:00 Microcytosis 1+ 06/18/18 08:00 Tear Drop Cells 1+ 06/18/18 08:00 Ovalocytes 1+ 06/18/18 08:00 Rouleaux 1+ 06/12/18 07:25 Retic Count 1.21 % (0.5-1.5) 06/12/18 07:47 CMP Sodium 133 mmol/L (136-145) L 06/21/18 07:30 Potassium 3.6 mmol/L (3.5-5.1) 06/21/18 07:30 Chloride 89 mmol/L (98-107) L 06/21/18 07:30 Carbon Dioxide 36 mmol/L (22-28) H 06/21/18 07:30 Anion Gap 8 (8-16) 06/21/18 07:30 BUN 7 mg/dl (7-18) 06/21/18 07:30 Creatinine 0.5 mg/dl (0.6-1.3) L 06/21/18 07:30 Creat Clearance w eGFR > 60 (>60) 06/21/18 07:30 POC Glucometer 147 UNITS (80-120) 06/22/18 06:16 Random Glucose 125 mg/dl (74-106) H 06/21/18 07:30 Lactic Acid 1.9 mmol/L (0.0-2.0) 06/14/18 08:30 Calcium 8.1 mg/dl (8.4-10.2) L 06/21/18 07:30 Phosphorus 3.4 mg/dl (2.5-4.6) 06/21/18 07:30 Magnesium 1.8 mg/dL (1.8-2.4) 06/21/18 07:30 Iron 14 ug/dL (27-139) L 06/13/18 07:37 TIBC 366 ug/dL (250-450) 06/12/18 07:37 Iron Saturation 4 % (15-55) L 06/12/18 07:37 Total Bilirubin 0.8 mg/dl (0.2-1.0) 06/19/18 07:05 AST 22 U/L (10-42) 06/19/18 07:05 ALT 16 U/L (10-40) 06/19/18 07:05 Alkaline Phosphatase 64 U/L (32-92) 06/19/18 07:05 Troponin I < 0.02 ng/ml (0.00-0.05) 06/12/18 07:47 B-Natriuretic Peptide 291.53 pg/ml (5-450) 06/12/18 07:47 Total Protein 5.1 g/dl (6.4-8.3) L 06/19/18 07:05 Albumin 2.3 g/dl (3.5-5.0) L 06/19/18 07:05 TSH 44.30 uIU/ml (0.358-3.74) H 06/12/18 07:47 Free T4 1.18 ng/dl (0.76-1.46) 06/17/18 10:45 Active Medications Generic Name Dose Route Start Last Admin Trade Name Freq PRN Reason Stop Dose Admin Albuterol/Ipratropium 1 amp 06/21/18 13:28 Duoneb - NEB Q6H PRN SHORTNESS OF BREATH Aspirin 81 mg 06/17/18 10:00 06/21/18 09:35 Asa - PO 81 mg DAILY REED Administration Atenolol 50 mg 06/13/18 10:00 06/21/18 09:35 Tenormin - PO 50 mg DAILY REED Administration Cefuroxime Axetil 250 mg 06/19/18 10:30 06/21/18 21:57 Ceftin - PO 250 mg BID REED Administration Diltiazem HCl 180 mg 06/12/18 21:43 06/21/18 09:35 Cardizem Cd - PO 180 mg DAILY REED Administration Docusate Sodium 100 mg 06/16/18 12:00 06/21/18 21:56 Colace - PO 100 mg BID REED Administration Ferrous Sulfate 325 mg 06/14/18 11:30 06/21/18 21:56 Feosol - PO 325 mg BID REED Administration Furosemide 40 mg 06/18/18 10:00 06/21/18 09:35 Lasix - PO 40 mg DAILY REED Administration Guaifenesin 600 mg 06/16/18 12:00 06/21/18 21:56 Mucinex - PO 600 mg BID REED Administration Insulin Aspart 1 vial 06/12/18 16:30 06/22/18 06:19 Novolog Vial Sliding Scale - SQ Not Given ACHS [facility] Protocol Lactobacillus Acidophilus 1 tab 06/14/18 11:00 06/21/18 09:35 Bacid - PO 1 tab DAILY REED Administration Levothyroxine Sodium 88 mcg 06/13/18 07:00 06/22/18 06:07 Synthroid - PO Not Given DAILY@0700 REED Losartan Potassium 50 mg 06/15/18 10:00 06/21/18 09:35 Cozaar - PO 50 mg DAILY REED Administration Multi-Ingredient Lotion 1 applic 06/12/18 13:15 06/21/18 21:57 Eucerin (Large Jar) - TP 1 applic BID REED Administration Ondansetron HCl 4 mg 06/14/18 16:43 06/14/18 17:42 Zofran Injection IVPUSH 4 mg Q6H PRN Administration NAUSEA Pantoprazole Sodium 40 mg 06/14/18 14:30 06/21/18 09:34 Protonix Iv IVPUSH 40 mg DAILY REED Administration Polyethylene Glycol 17 gm 06/19/18 14:45 06/21/18 18:20 Miralax (For Daily Use) - PO 17 gm TID@1000,1400,1800 REED Administration Potassium Chloride 20 meq 06/20/18 10:00 06/21/18 21:56 K-Dur - PO 20 meq BID REED Administration Microbiology 06/16/18 15:00 Pleural Fluid AFB Smear Concentration - Final 06/16/18 15:00 Pleural Fluid Mycobacterial Culture - Preliminary 06/16/18 15:00 Pleural Fluid Gram Stain - Final 06/16/18 15:00 Pleural Fluid Body Fluid Culture - Final NO GROWTH OF AEROBIC ORGANISMS AFTER 48 HOURS INCUBATION 06/16/18 15:00 Pleural Fluid Anaerobic Culture - Final NO ANAEROBES WERE ISOLATED 06/14/18 08:30 Blood - Peripheral Venous Blood Culture - Final NO GROWTH AFTER 5 DAYS INCUBATION 06/14/18 08:30 Blood - Peripheral Venous Blood Culture - Final NO GROWTH AFTER 5 DAYS INCUBATION 06/16/18 10:00 Sputum - Expectorated Gram Stain - Final 06/16/18 10:00 Sputum - Expectorated Sputum Culture - Final NORMAL RESPIRATORY EFRAIN 06/16/18 15:00 Pleural Fluid JACOB Preparation - Preliminary 06/16/18 15:00 Pleural Fluid Fungal Culture - Preliminary 06/14/18 10:30 Urine - Urine [place] Urine Culture - Final Escherichia Coli 06/14/18 17:14 Urine For Antigen Detection Legionella Antigen - Final, negative 06/14/18 17:14 Urine For Antigen Detection Streptococcus pneumoniae Antigen (M - Final, negative IMAGING cta of chest: no CT evidence of pulmonary embolism, pulmonary vascular congestion with cardiomegaly, bilateral pleural effusion Head CT (June 14 2018): no acute pathology echo LV WNL pleural effusion severe TR RVSP elevated PVR carotid doppler: extensive atherosclerotic disease with stenosis in the 80%-90% range involving the right ICA and in the 60-79% range involving the left carotid bifurcation abdominal xray (06/22/18): distended loops of bowel concerning for small bowel obstruction ASSESSMENT/PLAN: 1) cardiology Acute on chronic diastolic heart failure - 6 kg weight loss noted, continue lasix 40mg qd - strict i/o and daily weights Atrial fibrillation -rate well-controlled, continue diltiazem and atenolol -not on anticoagulation patient's preference Carotid artery stenosis -significant bilateral disease; carotid endarterectomy as an outpatient 2) pulm Acute hypercapnic respiratory failure, resolved -BIPAP as needed Bilateral pneumonia Bilateral pleural effusions s/p thoracentesis - rocephin 06/15 -06/19 transitioned to ceftin 250mg bid 3) heme Acute blood loss anemia - occult stool was positive, transfused 2U PRBC, h/h stable, continue iron supplements 4) GI guaic + stool - endo completed 06/20, no acute process noted - colonscopy attempted today, discussed with GI Dr. Simpson abdominal distention noted during procedure, concerning for perforation, stat abdominal x-ray ordered concerning for dilated loops of bowels, stat NGT, zosyn ordered, stat surgery consult obtained discussed with Dr Lora, will transfer patient to ICU for further management, as discussed with Dr. Mccollum, patient accepted to the ICU. 4) endo Hypothyroidism -abnormal TSH, free T4 wnl, continue levothyroxine NIDDM -Novolog sliding scale coverage 5) E. coli UTI - continue ceftin DVT prophylaxis: SCDs Physical therapy transfer to icu at [facility], pt en route to [facility] via [facility] ambulance* * Dispo:Requires Inpatient Care. Visit type - Emergency Visit Emergency Visit: Yes ED Registration Date: 06/12/18 Care time: The patient presented to the Emergency Department on the above date and was hospitalized for further evaluation of their emergent condition. - New Patient This patient is new to me today: No - Critical Care Critical Care patient: No - Discharge Referral Referred to [facility] Med P.C.: No
--- NOTE | 2018-06-22 10:16 | PN ---
Progress Note (short form) - Note Progress Note: Colonoscopy performed to sigmoid colon with fair prep and diverticulosis noted. Also noted acute distention of abdomen suggestive of perforation and procedure terminated. Patient started on IV antibiotics and for AXR. NG tube to be placed. Surgeon contacted and family made aware Will follow closely.
[2018-06-22] MEDS ORDERED: PIPERACILLIN/TAZOB 4.5 GM 4.5 GM/100 ML BAG IVPB ONE (10:30)
[2018-06-22 11:35] LABS: BASO % 1.5 % (0-2.0); EOS % 3.7 % (0-4.5); HEMATOCRIT 35.4 % (32.4-45.2); HEMOGLOBIN 11.1 GM/dl (10.7-15.3); LYMPH % 13.5 % (8-40); MCH 23.2 pg (25.7-33.7); MCHC 31.2 g/dl (32.0-36.0); MEAN CELL VOLUME 74.3 fl (80-96); MEAN PLT VOLUME 9.4 fl (7.5-11.1); MONO % 7.5 % (3.8-10.2); NEUT % 73.8 % (42.8-82.8); PLATELET COUNT 354 K/MM3 (134-434); RBC 4.76 M/mm3 (3.60-5.2); RDW 28.1 % (11.6-15.6); WHITE BLOOD COUNT 6.4 K/mm3 (4.0-10.8)
[2018-06-22 11:45] LABS: ALBUMIN 2.5 g/dl (3.5-5.0); ALK PHOS 77 U/L (32-92); ANION GAP 10 (8-16); BILIRUBIN,TOTAL 0.9 mg/dl (0.2-1.0); BLOOD UREA NITROGEN 9 mg/dl (7-18); CALCIUM 8.1 mg/dl (8.4-10.2); CHLORIDE 90 mmol/L (98-107); CO2 30 mmol/L (22-28); CREATININE 0.6 mg/dl (0.6-1.3); GLUCOSE,RANDOM 200 mg/dl (74-106); MAGNESIUM 1.7 mg/dL (1.8-2.4); PHOSPHOROUS 3.7 mg/dl (2.5-4.6); POTASSIUM 4.1 mmol/L (3.5-5.1); SGOT/AST 27 U/L (10-42); SGPT/ALT 17 U/L (10-40); SODIUM 130 mmol/L (136-145); TOT PROT 5.8 g/dl (6.4-8.3)
[2018-06-22] MEDS ORDERED: MAGNESIUM SULFATE IN WATER 2 GM/50 ML IVPB IVPB ONE (12:00)
--- NOTE | 2018-06-22 12:43 | HOSP ---
Physical Examination Vital Signs: Vital Signs Temperature 97.9 F 06/22/18 12:39 Pulse Rate 105 H 06/22/18 12:39 Respiratory Rate 18 06/22/18 12:39 Blood Pressure 168/67 06/22/18 12:39 O2 Sat by Pulse Oximetry (%) 92 L 06/22/18 09:00 Labs: CBC, BMP 06/22/18 11:18 06/22/18 11:18 Hospitalist Encounter Assessment: sign out received from Lanny Ly INFANT CHILDCARE PROVIDER on this patient Patient being transferred from [facility] to [facility] Patient is going to the OR today with Dr. Lora after found to have a possible acute bowel perforation during a colonoscopy today Patient seen in ICU, awake alert, oriented, in pain on abdomen Abdomen grossly distended and firm, has NGT with minimal output NO bowel sounds auscultated on exam ID consulted for continuation of antibiotics
[2018-06-22] MEDS ORDERED: morphine CARPU-JECT 2 MG/1 ML DISP.SYRIN IVPUSH PRN (12:46)
[2018-06-22] MEDS ORDERED: morphine SULFATE 4 MG/ML VIAL ONE (12:48)
[2018-06-22] MEDS: ONDANSETRON 4 MG/2 ML VIAL IVPUSH PRN (12:50)
[2018-06-22] MEDS: PANTOPRAZOLE SODIUM 40 MG VIAL IVPUSH SCH (12:51)
--- NOTE | 2018-06-22 12:56 | PN ---
Progress Note, Physician History of Present Illness: Abdominal distension and pain referable to SBO developed during colonoscopy, no free air seen, procedure aborted, perforation suspected, NGT placed, surgery input pending. - Current Medication List Current Medications: Active Medications Albuterol/Ipratropium (Duoneb -) 1 amp NEB Q6H PRN PRN Reason: SHORTNESS OF BREATH Aspirin (Asa -) 81 mg PO DAILY [facility] Last Admin: 06/21/18 09:35 Dose: 81 mg Atenolol (Tenormin -) 50 mg PO DAILY [facility] Last Admin: 06/21/18 09:35 Dose: 50 mg Diltiazem HCl (Cardizem Cd -) 180 mg PO DAILY [facility] Last Admin: 06/21/18 09:35 Dose: 180 mg Docusate Sodium (Colace -) 100 mg PO BID [facility] Last Admin: 06/21/18 21:56 Dose: 100 mg Ferrous Sulfate (Feosol -) 325 mg PO BID [facility] Last Admin: 06/21/18 21:56 Dose: 325 mg Furosemide (Lasix -) 40 mg PO DAILY [facility] Last Admin: 06/21/18 09:35 Dose: 40 mg Guaifenesin (Mucinex -) 600 mg PO BID [facility] Last Admin: 06/21/18 21:56 Dose: 600 mg Piperacillin Sod/Tazobactam Sod (Zosyn 3.375gm Ivpb (Pre-Docked)) 3.375 gm in 50 mls @ 100 mls/hr IVPB Q8H-IV [facility]; Protocol Insulin Aspart (Novolog Vial Sliding Scale -) 1 vial SQ ACHS [facility]; Protocol Last Admin: 06/22/18 06:19 Dose: Not Given Lactobacillus Acidophilus (Bacid -) 1 tab PO DAILY [facility] Last Admin: 06/21/18 09:35 Dose: 1 tab Levothyroxine Sodium (Synthroid -) 88 mcg PO DAILY@0700 [facility] Last Admin: 06/22/18 06:07 Dose: Not Given Losartan Potassium (Cozaar -) 50 mg PO DAILY [facility] Last Admin: 06/21/18 09:35 Dose: 50 mg Morphine Sulfate (Morphine Injection -) 2 mg IVPUSH Q6H PRN PRN Reason: pain 6-10 Last Admin: 06/22/18 12:50 Dose: 2 mg Multi-Ingredient Lotion (Eucerin (Large Jar) -) 1 applic TP BID [facility] Last Admin: 06/21/18 21:57 Dose: 1 applic Ondansetron HCl (Zofran Injection) 4 mg IVPUSH Q6H PRN PRN Reason: NAUSEA Last Admin: 06/22/18 12:50 Dose: 4 mg Pantoprazole Sodium (Protonix Iv) 40 mg IVPUSH DAILY [facility] Last Admin: 06/22/18 12:51 Dose: 40 mg Polyethylene Glycol (Miralax (For Daily Use) -) 17 gm PO TID@1000,1400,1800 [facility] Last Admin: 06/21/18 18:20 Dose: 17 gm Potassium Chloride (K-Dur -) 20 meq PO BID [facility] Last Admin: 06/21/18 21:56 Dose: 20 meq - Objective Vital Signs: Vital Signs Temperature 97.9 F 06/22/18 12:39 Pulse Rate 105 H 06/22/18 12:39 Respiratory Rate 18 06/22/18 12:39 Blood Pressure 168/67 06/22/18 12:39 O2 Sat by Pulse Oximetry (%) 92 L 06/22/18 09:00 Constitutional: Yes: Anxious, Moderate Distress Cardiovascular: Yes: Tachycardia, Pulse Irregular, Murmur (2/6 SM) Respiratory: Yes: Regular, Diminished, On Nasal O2 Gastrointestinal: Yes: Distention, Hyperactive Bowel Sounds, Tenderness Edema: No Labs: CBC, BMP 06/22/18 11:18 06/22/18 11:18 INR, PTT INR 1.27 (0.82-1.09) H 06/12/18 07:47 - ....Imaging Chest X-ray: Report Reviewed (Obstruction Series: Mardkedly dilated small bowels , no free air), Image Reviewed EKG: Report Reviewed (Tele: Sinus tachycardia) Problem List - Problems (1) Acute on chronic diastolic heart failure Code(s): I50.33 - ACUTE ON CHRONIC DIASTOLIC (CONGESTIVE) HEART FAILURE (2) Atrial fibrillation Code(s): I48.91 - UNSPECIFIED ATRIAL FIBRILLATION Qualifiers: Atrial fibrillation type: persistent Qualified Code(s): I48.1 - Persistent atrial fibrillation (3) Pleural effusion Code(s): J90 - PLEURAL EFFUSION, NOT ELSEWHERE CLASSIFIED (4) Acute hypercapnic respiratory failure Code(s): J96.02 - ACUTE RESPIRATORY FAILURE WITH HYPERCAPNIA (5) Hypothyroidism Code(s): E03.9 - HYPOTHYROIDISM, UNSPECIFIED Qualifiers: Hypothyroidism type: unspecified Qualified Code(s): E03.9 - Hypothyroidism , unspecified (6) Small intestine obstruction Code(s): K56.609 - UNSP INTESTNL OBST, UNSP TO PARTIAL VERSUS COMPLETE OBST (7) Pre-operative cardiovascular examination Code(s): Z01.810 - ENCOUNTER FOR PREPROCEDURAL CARDIOVASCULAR EXAMINATION (8) Perforation of colon as colonoscopy complication Code(s): K63.1 - PERFORATION OF INTESTINE (NONTRAUMATIC); K91.71 - ACCIDENTAL PNCTR & LAC OF A DGSTV SYS ORG DUR DGSTV SYS PROC Assessment/Plan cta of chest: no CT evidence of pulmonary embolism, pulmonary vascular congestion with cardiomegaly, bilateral pleural effusion Head CT (June 14 2018): no acute pathology echo LV WNL pleural effusion severe TR RVSP elevated PVR 1. Acute small bowel obstruction following colonoscopy, possible perforation 2. Acute hypercapneic respiratory failure referable to 3. Acute on chronic diastolic heart failure, pulm HTN with pleural effusions post right thoracentesis->transudate improved 4. Persistent afib, not on a/c as patient has declined in past 5. Hypothyroidism 6. Microcytic anemia 7. Givens-sensitive e. coli UTI 8. Carotid stenosis R>L planned for right CEA 9. Hyponatremia 10. Pre-operative cardiovascular evaluation P:1. Given absence of sxs of acute coronary syndrome, decompensated CHF or malignant arrhythmia, patient may proceed with exploratory laparotomy from CV- standpoint without further testing given suspicion of post-colonoscopy perforation 2. IV Lopressor as needed for rate and BP control alexei-operatively
[2018-06-22] MEDS: ASPIRIN 81 MG CHEWABLE TABLETS PO SCH (13:29)
[2018-06-22] MEDS: LACTOBACILLUS ACIDOPHILUS 1 TABLET PO SCH (13:29)
[2018-06-22] MEDS: LOSARTAN POTASSIUM 50 MG TABLET (FP) PO SCH (13:29)
[2018-06-22] MEDS: MINERAL OIL/PETROLAT/WATER TOPICAL CREAM 454 GM JAR TP SCH (13:29)
[2018-06-22] MEDS: DOCUSATE SODIUM 100 MG CAPSULE (FP) PO SCH (13:29)
[2018-06-22] MEDS: CEFUROXIME AXETIL 250 MG TABLET PO SCH (13:29)
[2018-06-22] MEDS: FERROUS SO4 325 MG TABLET (FP) PO SCH (13:30)
[2018-06-22] MEDS: POLYETHYLENE GLYCOL 3350 119 GM BTL PO SCH (13:30)
[2018-06-22] MEDS: guaiFENesin 600 MG TABLET.ER (FP) PO SCH (13:30)
[2018-06-22] MEDS: POTASSIUM CHLORIDE TABS 20 MEQ TABLET.ER (FP) PO SCH (13:30)
[2018-06-22] MEDS: FUROSEMIDE 40 MG TABLET (FP) PO SCH (13:30)
[2018-06-22] MEDS ORDERED: morphine CARPU-JECT 2 MG/1 ML DISP.SYRIN IVPUSH ONE (13:31)
[2018-06-22] MEDS: ATENOLOL 50 MG TABLET (FP) PO SCH (13:31)
[2018-06-22] MEDS ORDERED: METOPROLOL TARTRATE 5 MG/5 ML VIAL ONE (13:32)
--- NOTE | 2018-06-22 13:43 | CONSULT ---
- Consultation REQUESTING PROVIDER: Tatiana AGGARWAL CONSULT REQUEST: We have been asked to surgically evaluate this patient for ( specify). PCP:Keith Arce NP HISTORY OF PRESENT ILLNESS: CTSP who developed abdominal distention and pain during inpatient colonoscopy as part of a w/u for anemia; she c/o diffuse abdominal pain. Case d/w Dr. Tatiana PISANO who believes there was a colonic perforation at the level of the sigmoid. PMHx: reviewed PSHx: open appendectomy Home Medications Medication Instructions Recorded Aspirin 325 mg PO DAILY tablet 09/19/14 Levothyroxine [Synthroid -] 88 mcg PO DAILY 06/03/18 Atenolol [Tenormin -] 50 mg PO DAILY 06/13/18 Irbesartan 150 mg PO DAILY 06/13/18 Bimatoprost [Lumigan] 1 drop IO HS 06/14/18 Allergies Allergy/AdvReac Type Severity Reaction Status Date / Time No Known Allergies Allergy Verified 06/12/18 06:38 PHYSICAL EXAM: GENERAL: Awake, alert, and fully oriented, in acute distress. HEAD: Normal with no signs of trauma. EYES: PERRL, sclera anicteric, conjunctiva clear. NECK: Normal ROM, supple without lymphadenopathy, JVD, or masses. ABDOMEN: Soft, tender, distended, absent bowel sounds, guarding is present, rebound is present, no masses. No organomegaly. Healed right paramedian scar. MUSCULOSKELETAL: Normal ROM at all joints. No bony deformities or tenderness. No CVA tenderness. UPPER EXTREMITIES: 2+ pulses, warm, well-perfused. No cyanosis. Cap refill <2 seconds. No peripheral edema. LOWER EXTREMITIES: 2+ pulses, warm, well-perfused. No calf tenderness. No peripheral edema. NEUROLOGICAL: Normal speech, gait not observed. PSYCH: Cooperative. Good eye contact. Appropriate mood and affect. SKIN: Warm, dry, normal turgor, no rashes or lesions noted. Vital Signs Temperature 98.6 F 06/22/18 13:22 Pulse Rate 108 H 06/22/18 13:33 Respiratory Rate 18 06/22/18 13:22 Blood Pressure 168/70 06/22/18 13:33 O2 Sat by Pulse Oximetry (%) 92 L 06/22/18 09:00 Lab Results WBC 6.4 K/mm3 (4.0-10.8) 06/22/18 11:18 RBC 4.76 M/mm3 (3.60-5.2) 06/22/18 11:18 Hgb 11.1 GM/dl (10.7-15.3) 06/22/18 11:18 Hct 35.4 % (32.4-45.2) 06/22/18 11:18 MCV 74.3 fl (80-96) L 06/22/18 11:18 MCHC 31.2 g/dl (32.0-36.0) L 06/22/18 11:18 RDW 28.1 % (11.6-15.6) H 06/22/18 11:18 Plt Count 354 K/MM3 (134-434) 06/22/18 11:18 Sodium 130 mmol/L (136-145) L 06/22/18 11:18 Potassium 4.1 mmol/L (3.5-5.1) 06/22/18 11:18 Chloride 90 mmol/L (98-107) L 06/22/18 11:18 Carbon Dioxide 30 mmol/L (22-28) H 06/22/18 11:18 Anion Gap 10 (8-16) 06/22/18 11:18 BUN 9 mg/dl (7-18) 06/22/18 11:18 Creatinine 0.6 mg/dl (0.6-1.3) 06/22/18 11:18 Random Glucose 200 mg/dl (74-106) H D 06/22/18 11:18 Calcium 8.1 mg/dl (8.4-10.2) L 06/22/18 11:18 Blood Type O POSITIVE 06/13/18 07:37 Antibody Screen Negative 06/13/18 07:37 INR 1.27 (0.82-1.09) H 06/12/18 07:47 IMP: colonic perforation PLAN: ex-lap and AOSDN; d/w the patients son. Frederick Lora MD FACS
[2018-06-22] MEDS ORDERED: SUCCINYLCHOLINE CHLORIDE 200 MG/10 ML VIAL ONE (13:54)
[2018-06-22] MEDS ORDERED: ACETAMINOPHEN 1000 MG/100 ML VIAL (NON FORMULARY) IVPB ONE (14:00)
[2018-06-22] MEDS ORDERED: METOPROLOL TARTRATE 5 MG/5 ML VIAL IVPUSH SCH (14:00)
[2018-06-22] MEDS ORDERED: ROCURONIUM BROMIDE 50 MG/5 ML VIAL ONE (14:08)
[2018-06-22] MEDS ORDERED: ERTAPENEM SODIUM 1 GM VIAL IVPB ONE (14:09)
[2018-06-22] MEDS ORDERED: ERTAPENEM SODIUM 1 GM VIAL ONE (14:09)
[2018-06-22] MEDS ORDERED: PHENYLEPHRINE HCL 10 MG/1 ML SINGLE DOSE VIAL ONE ×4 (14:29→22:56)
[2018-06-22] MEDS ORDERED: MIDAZOLAM HCL 2 MG/2 ML SINGLE DOSE VIAL ONE (15:01)
--- NOTE | 2018-06-22 17:40 | OP ---
Operative Note - Note: Operative Date: 06/22/18 Pre-Operative Diagnosis: pneumoperitoneum Operation: Hartmans procedure Findings: perforated rectosigmoid Surgeon: Frederick Lora Commissions Analyst: Kaycee Simmons Anesthesiologist/MOTOR BUILDER WINDER: Gautam Patel Anesthesia: General Specimens Removed: rectosigmoid Estimated Blood Loss (mls): 250 Drains & Tubes with Location: 1 [facility]
[2018-06-22] MEDS ORDERED: morphine SULFATE 4 MG/ML VIAL IVPUSH PRN (17:53)
[2018-06-22] MEDS ORDERED: ONDANSETRON 4 MG/2 ML VIAL IVPUSH PRN (17:53)
[2018-06-22] MEDS ORDERED: PIPERACILLIN/TAZOB 3.375 GM 3.375 GM in DEXTROSE 5%-WATER - 50 ML IVPB SCH (18:00)
[2018-06-22] MEDS ORDERED: PIPERACILLIN/TAZOB 3.375 GM 3.375 GM/50 ML BAG IVPB SCH (18:00)
[2018-06-22] MEDS ORDERED: DEXTROSE 5%-WATER - 50 ML IVPB ONE (18:01)
[2018-06-22] MEDS ORDERED: PROPOFOL 1,000,000 MCG/100 ML VIAL ONE (18:01)
[2018-06-22] MEDS ORDERED: PIPERACILLIN/TAZOBACTAM 3.375 GM VIAL IVPB ONE (18:01)
[2018-06-22] MEDS ORDERED: fentaNYL CITRATE 250 MCG/5 ML VIAL ONE (18:02)
--- NOTE | 2018-06-22 18:03 | SURG ---
Surgery Ruby On Rails Web Developer Note Ruby On Rails Web Developer: Kaycee Simmons PA-C Date of Service: 06/22/18 Diagnosis: perforated rectosigmoid Procedure: palmer procedure I was present for the entirety of the operative procedure. For further detail, please refer to operative report. Visit type - Case Type Case Type: ED Admission - Emergency Emergency Visit: Yes ED Registration Date: 06/12/18 Care time: The patient presented to the Emergency Department on the above date and was hospitalized for further evaluation of their emergent condition. - New patient This patient is new to me today: Yes Date on this admission: 06/22/18 - Critical Care Critical Care patient: No
--- NOTE | 2018-06-22 18:25 | PN ---
Progress Note, Physician History of Present Illness: Events noted Operative findings discussed with Dr. Lora Intubated, awake Afebrile - Current Medication List Current Medications: Active Medications Albuterol/Ipratropium (Duoneb -) 1 amp NEB Q6H PRN PRN Reason: SHORTNESS OF BREATH Chlorhexidine Gluconate (Hibiclens For Decolonization -) 1 applic TP HS REED Heparin Sodium (Porcine) (Heparin -) 5,000 unit SQ BID REED Metronidazole (Flagyl 500mg Premixed Ivpb -) 500 mg in 100 mls @ 100 mls/hr IVPB Q6H-IV REED Lactated Ringer's (Lactated Ringers Solution) 1,000 ml in 1,000 mls @ 125 mls/ hr IV ASDIR ERED Propofol (Diprivan -) 1,000,000 mcg in 100 mls @ 1.894 mls/hr IVPB TITR REED; Protocol Fentanyl 500 mcg/ Dextrose 100 mls @ 5 mls/hr IVPB TITR RE[facility]; Protocol Piperacillin Sod/Tazobactam (Sod 3.375 gm/ Dextrose) 50 mls @ 100 mls/hr IVPB Q8H-IV RE[facility]; Protocol Insulin Aspart (Novolog Vial Sliding Scale -) 1 vial SQ ACHS RE[facility]; Protocol Levothyroxine Sodium (Synthroid Injection -) 44 mcg IVPUSH 0700 [facility] Metoprolol Tartrate (Lopressor Injection -) 5 mg IVPUSH Q4H-IV REED Morphine Sulfate (Morphine Sulfate) 2 mg IVPUSH Q6H PRN PRN Reason: pain 6-10 Mupirocin (Bactroban Ointment (For Decolonization) -) 1 applic NS BID [facility] Stop: 06/27/18 21:59 Ondansetron HCl (Zofran Injection) 4 mg IVPUSH Q6H PRN PRN Reason: NAUSEA Pantoprazole Sodium (Protonix Iv) 40 mg IVPUSH DAILY [facility] - Objective Vital Signs: Vital Signs Temperature 98.6 F 06/22/18 13:22 Pulse Rate 108 H 06/22/18 13:33 Respiratory Rate 10 L 06/22/18 17:20 Blood Pressure 168/70 06/22/18 13:33 O2 Sat by Pulse Oximetry (%) 92 L 06/22/18 09:00 Constitutional: Yes: No Distress Cardiovascular: Yes: Regular Rate and Rhythm, S1, S2 Respiratory: Yes: Mechanically Ventilated Gastrointestinal: Yes: Other (post operative dressing in place, abdomen) Labs: CBC, BMP 06/22/18 11:18 06/22/18 11:18 INR, PTT INR 1.27 (0.82-1.09) H 06/12/18 07:47 Assessment/Plan Colonic perforation, fecal peritonitis Possible sepsis S/P Lopez procedure Continue empiric zosyn/ flagyl ICU monitoring Prognosis guarded
[2018-06-22] MEDS: METOPROLOL TARTRATE 5 MG/5 ML VIAL IVPUSH SCH ×2 (18:26→21:39)
--- NOTE | 2018-06-22 18:48 | CONSULT ---
Consultation: REQUESTING PROVIDER: CONSULT REQUEST: We have been asked to medically evaluate this patient for ( Perforation-Rectosigmoid Colon). HISTORY OF PRESENT ILLNESS: Ms. Singh is an 87 y/o lady with a past medical history of A. fib (no AC), CVA , breast cancer, hypothyroidism, iron deficiency anemia, and DM. Pt has a h/o occult GI bleeding requiring blood transfusions. Pt has had a recent development of severe microcytic anemia and heme + stool. Has been on aspirin chronically for A fib. Has not had any specific GI complaints and has refused GI workups in past. Pt was referred to [facility] for a colonoscopy to r/o any GI bleed. Pt developed a perforation of her rectosigmoid colon s/p colonoscopy. Dr Lora, General Surgeon, was notified and pt was transfered [facility]. An exploratory laparotomy was performed where surgical resection of the rectosigmoid colon with closure of the anorectal stump and formation of an end colostomy. Pt currently intubated and on sedation. REVIEW OF SYSTEMS: CONSTITUTIONAL: Absent: fever, chills, diaphoresis, generalized weakness, malaise, loss of appetite, weight change HEENT: Absent: rhinorrhea, nasal congestion, throat pain, throat swelling, difficulty swallowing, mouth swelling, ear pain, eye pain, visual changes CARDIOVASCULAR: Absent: chest pain, syncope, palpitations, irregular heart rate, lightheadedness , peripheral edema RESPIRATORY: Absent: cough, shortness of breath, dyspnea with exertion, orthopnea, wheezing, stridor, hemoptysis GASTROINTESTINAL: PRESENT- ABDOMINAL DISTENSION AND TENDERNESS GENITOURINARY: Absent: dysuria, frequency, urgency, hesitancy, hematuria, flank pain, genital pain MUSCULOSKELETAL: Absent: myalgia, arthralgia, joint swelling, back pain, neck pain SKIN: PRESENT- pallor HEMATOLOGIC/IMMUNOLOGIC: PRESENT: SOB, ANEMIA. ENDOCRINE: Absent: unexplained weight gain, unexplained weight loss, heat intolerance, cold intolerance NEUROLOGIC: Absent: headache, focal weakness or paresthesias, dizziness, unsteady gait, seizure, mental status changes, bladder or bowel incontinence PSYCHIATRIC: Absent: anxiety, depression, suicidal or homicidal ideation, hallucinations. PHYSICAL EXAMINATION Vital Signs - 24 hr 06/21/18 06/21/18 06/21/18 19:59 21:50 22:00 Temperature 98.5 F Pulse Rate 93 H Respiratory 18 16 Rate Blood Pressure 112/48 O2 Sat by Pulse 95 98 Oximetry (%) 06/22/18 06/22/18 06/22/18 06:00 06:26 09:00 Temperature 98.4 F Pulse Rate 108 H Respiratory 18 18 Rate Blood Pressure 113/42 O2 Sat by Pulse 92 L 92 L Oximetry (%) 06/22/18 06/22/18 06/22/18 12:39 13:22 13:33 Temperature 98.4 F 98.6 F Pulse Rate 105 H 105 H 108 H Respiratory 18 18 Rate Blood Pressure 168/67 168/71 168/70 O2 Sat by Pulse Oximetry (%) 06/22/18 06/22/18 17:20 18:26 Temperature Pulse Rate 132 H Respiratory 10 L Rate Blood Pressure 99/60 O2 Sat by Pulse Oximetry (%) GENERAL: Intubated. HEAD: NC/AT EYES: EOMI. EARS, NOSE, THROAT: Unable to assess throat-Intubated. NECK: No masses or JVD. LUNGS: Dec BS. HEART: Tachy, irregular ABDOMEN: TENER, DISTENDED UPPER EXTREMITIES: NO CCE LOWER EXTREMITIES: Scaly, cool to touch. NEUROLOGICAL: CVA in past. No residual deficits per sonAsif. PSYCHIATRIC: Unble to assess SKIN: Pallor, dry. Laboratory Results - last 24 hr 06/21/18 06/22/18 06/22/18 21:51 06:16 11:18 WBC 6.4 RBC 4.76 Hgb 11.1 Hct 35.4 MCV 74.3 L MCH 23.2 L MCHC 31.2 L RDW 28.1 H Plt Count 354 MPV 9.4 Absolute Neuts (auto) 4.7 Neutrophils % 73.8 Lymphocytes % 13.5 Monocytes % 7.5 Eosinophils % 3.7 Basophils % 1.5 Sodium Potassium Chloride Carbon Dioxide Anion Gap BUN Creatinine Creat Clearance w eGFR POC Glucometer 138 147 Random Glucose Calcium Phosphorus Magnesium Total Bilirubin AST ALT Alkaline Phosphatase Total Protein Albumin Blood Type Antibody Screen Crossmatch IS Only 06/22/18 06/22/18 11:18 13:20 WBC RBC Hgb Hct MCV MCH MCHC RDW Plt Count MPV Absolute Neuts (auto) Neutrophils % Lymphocytes % Monocytes % Eosinophils % Basophils % Sodium 130 L Potassium 4.1 Chloride 90 L Carbon Dioxide 30 H Anion Gap 10 BUN 9 Creatinine 0.6 Creat Clearance w eGFR > 60 POC Glucometer Random Glucose 200 H D Calcium 8.1 L Phosphorus 3.7 Magnesium 1.7 L Total Bilirubin 0.9 AST 27 D ALT 17 Alkaline Phosphatase 77 D Total Protein 5.8 L Albumin 2.5 L Blood Type O POSITIVE Antibody Screen Negative Crossmatch IS Only See Detail Active Medications Generic Name Dose Route Start Last Admin Trade Name Freq PRN Reason Stop Dose Admin Albuterol/Ipratropium 1 amp 06/22/18 17:53 Duoneb - NEB Q6H PRN SHORTNESS OF BREATH Chlorhexidine Gluconate 1 applic 06/22/18 22:00 Hibiclens For Decolonization - TP HS REED Heparin Sodium (Porcine) 5,000 unit 06/22/18 22:00 Heparin - SQ BID REED Metronidazole 500 mg in 100 mls @ 100 mls/hr 06/22/18 21:00 Flagyl 500mg Premixed Ivpb - IVPB Q6H-IV REED Lactated Ringer's 1,000 ml in 1,000 mls @ 125 mls/hr 06/22/18 18:00 Lactated Ringers Solution IV ASDIR REED Propofol 1,000,000 mcg in 100 mls @ 1.894 mls/hr 06/22/18 18:15 Diprivan - IVPB TITR REED Protocol 5 MCG/KG/MIN Fentanyl 500 mcg/ Dextrose 100 mls @ 5 mls/hr 06/22/18 18:15 IVPB TITR REED Protocol 25 MCG/HR Piperacillin Sod/Tazobactam 50 mls @ 100 mls/hr 06/23/18 02:00 Sod 3.375 gm/ Dextrose IVPB Q8H-IV [facility] Protocol Insulin Aspart 1 vial 06/22/18 22:00 Novolog Vial Sliding Scale - SQ ACHS [facility] Protocol Levothyroxine Sodium 44 mcg 06/23/18 07:00 Synthroid Injection - IVPUSH 0700 REED Metoprolol Tartrate 5 mg 06/22/18 18:00 06/22/18 18:26 Lopressor Injection - IVPUSH 5 mg Q4H-IV REED Administration Morphine Sulfate 2 mg 06/22/18 17:53 Morphine Sulfate IVPUSH Q6H PRN pain 6-10 Mupirocin 1 applic 06/22/18 22:00 Bactroban Ointment (For Decolonization) - NS 06/27/18 21:59 BID REED Ondansetron HCl 4 mg 06/22/18 17:53 Zofran Injection IVPUSH Q6H PRN NAUSEA Pantoprazole Sodium 40 mg 06/23/18 10:00 Protonix Iv IVPUSH DAILY [facility] ASSESSMENT/PLAN: Colonic perforation, fecal peritonitis Possible sepsis S/P Lopez procedure Continue empiric zosyn/ flagyl ICU monitoring Intubated and Sedated. Propofol and Fentanyl AFIB: Lopressor Injection 5 mg IVPUSH Q4H Home Meds- ASA 325, Cardizem 180 PO Daily, Tenormin 50 MG PO Daily. Will continue pending Cardiology FEN LR 1,000 ml in 1,000 mls @ 125 mls/hr Monitor Electrolytes NPO DVT ppx: 5,000 unit SQ BID Dispo: We will continue to follow the patient. Thank you for this consultative opportunity. Visit type - Emergency Visit Emergency Visit: Yes ED Registration Date: 06/12/18 Care time: The patient presented to the Emergency Department on the above date and was hospitalized for further evaluation of their emergent condition. - New Patient This patient is new to me today: Yes Date on this admission: 06/22/18 - Critical Care Critical Care patient: Yes Total Critical Care Time (in minutes): 36 Critical Care Statement: The care of this patient involved high complexity decision making to prevent further life threatening deterioration of the patient 's condition and/or to evaluate & treat vital organ system(s) failure or risk of failure.
[2018-06-22] MEDS: LACTATED RINGERS SOLUTION 1,000 ML/1,000 ML INFUS.BAG IV SCH (18:59)
[2018-06-22] MEDS: PROPOFOL 1,000,000 MCG/100 ML VIAL IVPB SCH (19:00)
[2018-06-22] MEDS: FENTANYL INJECTION 500 MCG in DEXTROSE 5%-WATER - 90 ML IVPB SCH (19:00)
[2018-06-22] MEDS ORDERED: NOREPINEPHRINE BITARTRATE 4 MG/4 ML ML IV ONE (19:12)
[2018-06-22] MEDS ORDERED: NOREPINEPHRINE BITARTRATE 8,000 MCG in DEXTROSE 5%-WATER - 492 ML IV SCH (19:15)
--- NOTE | 2018-06-22 19:40 | PROC ---
Central Line Insertion Indication: Sepsis, Vasopressor Risks and Benefits Explained: Yes Consent on Chart: Yes Central Line: Triple Lumen Catheter Anesthesia: 1% Lidocaine Sterile Technique: Yes Ultrasound Guided Assistance: Yes Position: Right Internal Jugular Post Insertion: Yes: Bilateral Breath Sounds, Bilateral Chest Expansion, Chest X-Ray Ordered Sterile Dressing Applied: Yes Remarks: Line placed under indirect supervision form Dr Lopez (ED).
[2018-06-22] MEDS: HEPARIN NA (PORCINE) 5,000 UNITS/ML 1ML VIAL SQ SCH (21:38)
[2018-06-22] MEDS: CHLORHEXIDINE GLUCONATE 4% CLEANSER FOR DECOLONIZATION TP SCH (21:38)
[2018-06-22] MEDS: MUPIROCIN 2% TOPICAL OINTMENT FOR DECOLONIZATION NS SCH (21:40)
[2018-06-22] MEDS ORDERED: INSULIN (NOVOLOG) ASPART 100 UNITS/ML 10ML VIAL ONE (21:45)
[2018-06-22 21:53] LABS: HEMATOCRIT 38.2 % (32.4-45.2); MCH 23.9 pg (25.7-33.7); MCHC 31.5 g/dl (32.0-36.0); MEAN CELL VOLUME 76.1 fl (80-96); MEAN PLT VOLUME 9.4 fl (7.5-11.1); PLATELET COUNT 360 K/MM3 (134-434); RBC 5.03 M/mm3 (3.60-5.2); RDW 29.7 % (11.6-15.6); WHITE BLOOD COUNT 4.7 K/mm3 (4.0-10.0)
[2018-06-22] MEDS: NOREPINEPHRINE BITARTRATE 8,000 MCG in DEXTROSE 5%-WATER - 492 ML IV SCH (22:01)
[2018-06-22 22:24] LABS: ALBUMIN 1.7 g/dl (3.4-5.0); ANION GAP 7 (8-16); BILIRUBIN,TOTAL 1.2 mg/dL (0.2-1.0); BLOOD UREA NITROGEN 11 mg/dL (7-18); CALCIUM 7.3 mg/dL (8.5-10.1); CHLORIDE 105 mmol/L (98-107); CO2 29 mmol/L (21-32); CREATININE 0.8 mg/dL (0.55-1.02); GLUCOSE,RANDOM 195 mg/dL (74-106); PHOSPHOROUS 3.9 mg/dL (2.5-4.9); POTASSIUM 4.1 mmol/L (3.5-5.1); SGOT/AST 23 U/L (15-37); SGPT/ALT 16 U/L (12-78); SODIUM 141 mmol/L (136-145); TOT PROT 4.3 g/dl (6.4-8.2)
[2018-06-22 22:25] LABS: ALK PHOS 78 U/L (45-117)
[2018-06-22] MEDS ORDERED: PHENYLEPHRINE HCL 10,000 MCG in DEXTROSE 5%-WATER - 499 ML IV SCH (23:15)
[2018-06-22] MEDS: PHENYLEPHRINE HCL 20,000 MCG in SODIUM CHLORIDE 248 ML IVPB SCH (23:28)
[2018-06-23] MEDS ORDERED: PIPERACILLIN/TAZOBACTAM 3.375 GM VIAL IVPB ONE ×3 (00:58→17:12)
[2018-06-23] MEDS ORDERED: DEXTROSE 5%-WATER - 50 ML IVPB ONE ×3 (00:59→17:13)
[2018-06-23] MEDS: PIPERACILLIN/TAZOB 3.375 GM 3.375 GM in DEXTROSE 5%-WATER - 50 ML IVPB SCH ×3 (01:12→17:34)
[2018-06-23] MEDS: METOPROLOL TARTRATE 5 MG/5 ML VIAL IVPUSH SCH ×7 (02:00→21:12)
[2018-06-23] MEDS ORDERED: PHENYLEPHRINE HCL 10 MG/1 ML SINGLE DOSE VIAL ONE ×2 (05:53→13:04)
[2018-06-23 05:54] LABS: BASO % 0.3 % (0-2.0); HEMATOCRIT 36.7 % (32.4-45.2); HEMOGLOBIN 11.7 GM/dL (10.7-15.3); LYMPH % 3.9 % (8-40); MCH 24.2 pg (25.7-33.7); MCHC 31.9 g/dl (32.0-36.0); MEAN CELL VOLUME 75.9 fl (80-96); MEAN PLT VOLUME 9.5 fl (7.5-11.1); MONO % 5.4 % (3.8-10.2); NEUT % 90.4 % (42.8-82.8); PLATELET COUNT 412 K/MM3 (134-434); RBC 4.84 M/mm3 (3.60-5.2); RDW 30.2 % (11.6-15.6); WHITE BLOOD COUNT 10.8 K/mm3 (4.0-10.0)
[2018-06-23] MEDS ORDERED: NOREPINEPHRINE BITARTRATE 4 MG/4 ML ML IV ONE ×2 (05:54→19:12)
[2018-06-23] MEDS: LEVOTHYROXINE SODIUM 100 MCG VIAL IVPUSH SCH (06:11)
[2018-06-23 06:19] LABS: ANION GAP 9 (8-16); BLOOD UREA NITROGEN 13 mg/dL (7-18); CHLORIDE 103 mmol/L (98-107); CO2 27 mmol/L (21-32); CREATININE 0.7 mg/dL (0.55-1.02); GLUCOSE,RANDOM 211 mg/dL (74-106); POTASSIUM 3.7 mmol/L (3.5-5.1); SODIUM 139 mmol/L (136-145)
[2018-06-23] MEDS: INSULIN SLIDING SCALE (NOVOLOG) 1 VIAL SQ SCH ×4 (06:19→21:17)
[2018-06-23] MEDS: LACTATED RINGERS SOLUTION 1,000 ML/1,000 ML INFUS.BAG IV SCH ×4 (06:20→19:45)
--- NOTE | 2018-06-23 09:00 | PN ---
Progress Note (short form) - Note Progress Note: Anesthesia post op Pt seen and examined S:Intubated and sedated O: Vital Signs Temperature 100.2 F H 06/23/18 06:00 Pulse Rate 99 H 06/23/18 08:42 Respiratory Rate 15 06/23/18 08:43 Blood Pressure 100/48 06/23/18 07:00 O2 Sat by Pulse Oximetry (%) 98 06/23/18 08:42 CBC, BMP 06/23/18 05:30 06/23/18 05:30 A/P Current Active Problems Acute hypercapnic respiratory failure (Acute) Acute on chronic diastolic heart failure (Acute) Acute on chronic respiratory failure with hypoxia and hypercapnia (Acute) Atrial fibrillation (Acute) Hypothyroidism (Acute) Perforation of colon as colonoscopy complication (Acute) Pleural effusion (Acute) Pre-operative cardiovascular examination (Acute) Pulmonary hypertension (Acute) Respiratory distress (Acute) Small intestine obstruction (Acute) s/p ex-Laparotomy Lopez's Intubated and sedated On pressors Still critical post op Continue current care Henri Dorantes MD
--- NOTE | 2018-06-23 09:04 | PN ---
Progress Note, Physician History of Present Illness: Remains intubated and sedated, rectosigmoid perforation confirmed, s/p Lopez' s procedure and fecal peritonitis. Low-grade fever. - Current Medication List Current Medications: Active Medications Albuterol/Ipratropium (Duoneb -) 1 amp NEB Q6H PRN PRN Reason: SHORTNESS OF BREATH Chlorhexidine Gluconate (Hibiclens For Decolonization -) 1 applic TP HS REED Last Admin: 06/22/18 21:38 Dose: 1 applic Chlorhexidine Gluconate (Peridex -) 15 ml MM BID REED Heparin Sodium (Porcine) (Heparin -) 5,000 unit SQ BID REED Last Admin: 06/22/18 21:38 Dose: 5,000 unit Metronidazole (Flagyl 500mg Premixed Ivpb -) 500 mg in 100 mls @ 100 mls/hr IVPB Q6H-IV REED Last Admin: 06/23/18 02:05 Dose: 100 mls/hr Propofol (Diprivan -) 1,000,000 mcg in 100 mls @ 1.894 mls/hr IVPB TITR REED; Protocol Last Titration: 06/23/18 00:00 Dose: 10 mcg/kg/min, 3.788 mls/hr Fentanyl 500 mcg/ Dextrose 100 mls @ 5 mls/hr IVPB TITR REED; Protocol Last Admin: 06/22/18 19:00 Dose: 5 mls/hr Piperacillin Sod/Tazobactam (Sod 3.375 gm/ Dextrose) 50 mls @ 100 mls/hr IVPB Q8H-IV REED; Protocol Last Admin: 06/23/18 01:12 Dose: 100 mls/hr Norepinephrine Bitartrate 8, (000 mcg/ Dextrose) 500 mls @ 18.75 mls/hr IV TITR REED; Protocol Last Titration: 06/23/18 03:00 Dose: 25 mcg/min, 93.75 mls/hr Phenylephrine HCl 20,000 mcg/ (Sodium Chloride) 250 mls @ 75 mls/hr IVPB ASDIR REED; Protocol Last Admin: 06/22/18 23:28 Dose: 100 mcg/min, 75 mls/hr Insulin Aspart (Novolog Vial Sliding Scale -) 1 vial SQ ACHS REED; Protocol Last Admin: 06/23/18 06:19 Dose: 4 units Levothyroxine Sodium (Synthroid Injection -) 44 mcg IVPUSH 0700 [facility] Last Admin: 06/23/18 06:11 Dose: 44 mcg Metoprolol Tartrate (Lopressor Injection -) 5 mg IVPUSH Q4H-IV [facility] Last Admin: 06/23/18 06:19 Dose: Not Given Morphine Sulfate (Morphine Sulfate) 2 mg IVPUSH Q6H PRN PRN Reason: pain 6-10 Mupirocin (Bactroban Ointment (For Decolonization) -) 1 applic NS BID [facility] Stop: 06/27/18 21:59 Last Admin: 06/22/18 21:40 Dose: 1 applic Ondansetron HCl (Zofran Injection) 4 mg IVPUSH Q6H PRN PRN Reason: NAUSEA Pantoprazole Sodium (Protonix Iv) 40 mg IVPUSH DAILY [facility] - Objective Vital Signs: Vital Signs Temperature 100.2 F H 06/23/18 06:00 Pulse Rate 99 H 06/23/18 08:42 Respiratory Rate 15 06/23/18 08:43 Blood Pressure 100/48 06/23/18 07:00 O2 Sat by Pulse Oximetry (%) 98 06/23/18 08:42 Cardiovascular: Yes: Tachycardia, Pulse Irregular Respiratory: Yes: Intubated, Mechanically Ventilated, Rhonchi Gastrointestinal: Yes: Soft, Hypoactive Bowel Sounds, Other (Post-op) Edema: No Labs: CBC, BMP 06/23/18 05:30 06/23/18 05:30 INR, PTT INR 1.27 (0.82-1.09) H 06/12/18 07:47 - ....Imaging Chest X-ray: Report Reviewed (Increased congestion and effusions) Problem List - Problems (1) Acute on chronic diastolic heart failure Code(s): I50.33 - ACUTE ON CHRONIC DIASTOLIC (CONGESTIVE) HEART FAILURE (2) Atrial fibrillation Code(s): I48.91 - UNSPECIFIED ATRIAL FIBRILLATION Qualifiers: Atrial fibrillation type: persistent Qualified Code(s): I48.1 - Persistent atrial fibrillation (3) Pleural effusion Code(s): J90 - PLEURAL EFFUSION, NOT ELSEWHERE CLASSIFIED (4) Hypothyroidism Code(s): E03.9 - HYPOTHYROIDISM, UNSPECIFIED Qualifiers: Hypothyroidism type: unspecified Qualified Code(s): E03.9 - Hypothyroidism , unspecified (5) Perforation of colon as colonoscopy complication Code(s): K63.1 - PERFORATION OF INTESTINE (NONTRAUMATIC); K91.71 - ACCIDENTAL PNCTR & LAC OF A DGSTV SYS ORG DUR DGSTV SYS PROC (6) Status post Sam procedure Code(s): Z93.3 - COLOSTOMY STATUS (7) Acute on chronic respiratory failure with hypoxia and hypercapnia Code(s): J96.21 - ACUTE AND CHRONIC RESPIRATORY FAILURE WITH HYPOXIA; J96.22 - ACUTE AND CHRONIC RESPIRATORY FAILURE WITH HYPERCAPNIA Assessment/Plan cta of chest: no CT evidence of pulmonary embolism, pulmonary vascular congestion with cardiomegaly, bilateral pleural effusion Head CT (June 14 2018): no acute pathology echo LV WNL pleural effusion severe TR RVSP elevated PVR 1. Colonic perforation, fecal peritonitis, sepsis POD#1 S/P Lopez procedure 2. Acute hypercapneic respiratory failure referable to 3. Acute on chronic diastolic heart failure, pulm HTN with pleural effusions post right thoracentesis->transudate 4. Persistent afib with RVR, not on a/c as patient has declined in past 5. Hypothyroidism 6. Microcytic anemia 7. Givens-sensitive e. coli UTI 8. Carotid stenosis R>L planned for right CEA 9. Hyponatremia P:1. Empiric abx per ID 2. Vent management per ICU 3. Wean Levophed and Neosynephrine to maintain MAP>65 mmHg 4. May use amio or digoxin as needed for rate-control while hypotensive 5. DVT and GI prophylaxis
[2018-06-23] MEDS: PHENYLEPHRINE HCL 20,000 MCG in SODIUM CHLORIDE 248 ML IVPB SCH ×2 (09:35→13:23)
[2018-06-23] MEDS: PANTOPRAZOLE SODIUM 40 MG VIAL IVPUSH SCH (09:38)
[2018-06-23] MEDS: HEPARIN NA (PORCINE) 5,000 UNITS/ML 1ML VIAL SQ SCH ×2 (09:42→21:09)
[2018-06-23 09:55] LABS: MAGNESIUM 1.9 mg/dL (1.8-2.4); PHOSPHOROUS 3.4 mg/dL (2.5-4.9)
[2018-06-23] MEDS: CHLORHEXIDINE GLUCONATE 0.12% 15ML CUP MM SCH ×2 (09:57→21:12)
[2018-06-23] MEDS: MUPIROCIN 2% TOPICAL OINTMENT FOR DECOLONIZATION NS SCH ×2 (09:57→21:09)
--- NOTE | 2018-06-23 10:23 | PN ---
Progress Note, Physician History of Present Illness: Awake on ventilator Hypotensive on pressors Low grade temp WBC 10.8 Operative cultures pending - Current Medication List Current Medications: Active Medications Albuterol/Ipratropium (Duoneb -) 1 amp NEB Q6H PRN PRN Reason: SHORTNESS OF BREATH Chlorhexidine Gluconate (Hibiclens For Decolonization -) 1 applic TP HS REED Last Admin: 06/22/18 21:38 Dose: 1 applic Chlorhexidine Gluconate (Peridex -) 15 ml MM BID REED Last Admin: 06/23/18 09:57 Dose: 15 ml Heparin Sodium (Porcine) (Heparin -) 5,000 unit SQ BID REED Last Admin: 06/23/18 09:42 Dose: 5,000 unit Metronidazole (Flagyl 500mg Premixed Ivpb -) 500 mg in 100 mls @ 100 mls/hr IVPB Q6H-IV REED Last Admin: 06/23/18 09:44 Dose: 100 mls/hr Propofol (Diprivan -) 1,000,000 mcg in 100 mls @ 1.894 mls/hr IVPB TITR REED; Protocol Last Titration: 06/23/18 00:00 Dose: 10 mcg/kg/min, 3.788 mls/hr Fentanyl 500 mcg/ Dextrose 100 mls @ 5 mls/hr IVPB TITR REED; Protocol Last Admin: 06/22/18 19:00 Dose: 5 mls/hr Piperacillin Sod/Tazobactam (Sod 3.375 gm/ Dextrose) 50 mls @ 100 mls/hr IVPB Q8H-IV REED; Protocol Last Admin: 06/23/18 09:38 Dose: 100 mls/hr Norepinephrine Bitartrate 8, (000 mcg/ Dextrose) 500 mls @ 18.75 mls/hr IV TITR REED; Protocol Last Titration: 06/23/18 03:00 Dose: 25 mcg/min, 93.75 mls/hr Phenylephrine HCl 20,000 mcg/ (Sodium Chloride) 250 mls @ 75 mls/hr IVPB ASDIR REED; Protocol Last Admin: 06/23/18 09:35 Dose: 100 mcg/min, 75 mls/hr Insulin Aspart (Novolog Vial Sliding Scale -) 1 vial SQ ACHS REED; Protocol Last Admin: 06/23/18 06:19 Dose: 4 units Levothyroxine Sodium (Synthroid Injection -) 44 mcg IVPUSH 0700 [facility] Last Admin: 06/23/18 06:11 Dose: 44 mcg Metoprolol Tartrate (Lopressor Injection -) 5 mg IVPUSH Q4H-IV [facility] Last Admin: 06/23/18 06:19 Dose: Not Given Morphine Sulfate (Morphine Sulfate) 2 mg IVPUSH Q6H PRN PRN Reason: pain 6-10 Mupirocin (Bactroban Ointment (For Decolonization) -) 1 applic NS BID [facility] Stop: 06/27/18 21:59 Last Admin: 06/23/18 09:57 Dose: 1 applic Ondansetron HCl (Zofran Injection) 4 mg IVPUSH Q6H PRN PRN Reason: NAUSEA Pantoprazole Sodium (Protonix Iv) 40 mg IVPUSH DAILY [facility] Last Admin: 06/23/18 09:38 Dose: 40 mg - Objective Vital Signs: Vital Signs Temperature 100.2 F H 06/23/18 09:00 Pulse Rate 109 H 06/23/18 09:35 Respiratory Rate 16 06/23/18 09:00 Blood Pressure 96/49 06/23/18 09:35 O2 Sat by Pulse Oximetry (%) 96 06/23/18 09:00 Constitutional: Yes: No Distress Eyes: Yes: Conjunctiva Clear Cardiovascular: Yes: Regular Rate and Rhythm, S1, S2 Respiratory: Yes: Mechanically Ventilated Gastrointestinal: Yes: Normal Bowel Sounds, Soft, Other (Abdominal dressing in place + ostomy). No: Tenderness Edema: Yes Labs: CBC, BMP 06/23/18 05:30 06/23/18 05:30 INR, PTT INR 1.27 (0.82-1.09) H 06/12/18 07:47 Assessment/Plan POD #1 Lopez procedure Colonic perforation, fecal peritonitis Sepsis/ septic shock secondary to GI source Operative c/s LF, grp D strep Pulmonary vascular congestion ? pneumonia Continue empiric zosyn/ flagyl vancomycin 1gm x1 ICU monitoring Prognosis guarded
[2018-06-23] MEDS ORDERED: VANCOMYCIN 1 GM PREMIX - 1 GM/200 ML BAG IVPB ONE (10:27)
--- NOTE | 2018-06-23 10:30 | PN ---
Physical Exam: SUBJECTIVE: Patient seen and examined in ICU. Vented, sedated, hypotensive on levo and jackie, awake during sedation wean. Tmax 100.3 OBJECTIVE: Vital Signs Period Temp Pulse Resp BP Sys/De La O Pulse Ox Last 24 Hr 97.8 F-100.3 F 91-132 10-18 57-168/30-80 96-100 PE Neuro: sedated, however opening eyes HEENT: left eye ecchymosis, R triple lumen cdi Pulm: diminished + MV CV: s1 s2 irregular rate/rhythm Abd: lower abdominal incision, open, packed, + drain to suction, LLQ colostomy + black liquid, distention, hypoactive bowel sound Ext: +1 le edema, Laboratory Results - last 24 hr 06/22/18 06/22/18 06/22/18 11:18 11:18 13:20 WBC 6.4 RBC 4.76 Hgb 11.1 Hct 35.4 MCV 74.3 L MCH 23.2 L MCHC 31.2 L RDW 28.1 H Plt Count 354 MPV 9.4 Absolute Neuts (auto) 4.7 Neutrophils % 73.8 Lymphocytes % 13.5 Monocytes % 7.5 Eosinophils % 3.7 Basophils % 1.5 Nucleated RBC % Sodium 130 L Potassium 4.1 Chloride 90 L Carbon Dioxide 30 H Anion Gap 10 BUN 9 Creatinine 0.6 Creat Clearance w eGFR > 60 POC Glucometer Random Glucose 200 H D Calcium 8.1 L Phosphorus 3.7 Magnesium 1.7 L Total Bilirubin 0.9 AST 27 D ALT 17 Alkaline Phosphatase 77 D Total Protein 5.8 L Albumin 2.5 L Blood Type O POSITIVE Antibody Screen Negative Crossmatch IS Only See Detail 06/22/18 06/22/18 06/22/18 21:30 21:30 21:31 WBC 4.7 RBC 5.03 Hgb 12.0 Hct 38.2 D MCV 76.1 L MCH 23.9 L D MCHC 31.5 L RDW 29.7 H Plt Count 360 D MPV 9.4 Absolute Neuts (auto) Neutrophils % Lymphocytes % Monocytes % Eosinophils % Basophils % Nucleated RBC % Sodium 141 Potassium 4.1 Chloride 105 Carbon Dioxide 29 Anion Gap 7 L BUN 11 Creatinine 0.8 Creat Clearance w eGFR > 60 POC Glucometer [phone] Random Glucose 195 H Calcium 7.3 L Phosphorus 3.9 Magnesium 2.0 Total Bilirubin 1.2 H AST 23 ALT 16 Alkaline Phosphatase 78 D Total Protein 4.3 L D Albumin 1.7 L Blood Type Antibody Screen Crossmatch IS Only 06/23/18 06/23/18 06/23/18 05:30 05:30 05:30 WBC 10.8 H RBC 4.84 Hgb 11.7 Hct 36.7 MCV 75.9 L MCH 24.2 L MCHC 31.9 L RDW 30.2 H Plt Count 412 MPV 9.5 Absolute Neuts (auto) 9.8 Neutrophils % 90.4 H Lymphocytes % 3.9 L D Monocytes % 5.4 Eosinophils % 0.0 D Basophils % 0.3 Nucleated RBC % 0 Sodium 139 Potassium 3.7 Chloride 103 Carbon Dioxide 27 Anion Gap 9 BUN 13 Creatinine 0.7 Creat Clearance w eGFR > 60 POC Glucometer Random Glucose 211 H Calcium 7.0 L Phosphorus 3.4 Cancelled Magnesium 1.9 Total Bilirubin AST ALT Alkaline Phosphatase Total Protein Albumin Blood Type Antibody Screen Crossmatch IS Only Active Medications Generic Name Dose Route Start Last Admin Trade Name Freq PRN Reason Stop Dose Admin Albuterol/Ipratropium 1 amp 06/22/18 17:53 Duoneb - NEB Q6H PRN SHORTNESS OF BREATH Chlorhexidine Gluconate 1 applic 06/22/18 22:00 06/22/18 21:38 Hibiclens For Decolonization - TP 1 applic HS REED Administration Chlorhexidine Gluconate 15 ml 06/23/18 10:00 06/23/18 09:57 Peridex - MM 15 ml BID REED Administration Heparin Sodium (Porcine) 5,000 unit 06/22/18 22:00 06/23/18 09:42 Heparin - SQ 5,000 unit BID REED Administration Metronidazole 500 mg in 100 mls @ 100 mls/hr 06/22/18 21:00 06/23/18 09:44 Flagyl 500mg Premixed Ivpb - IVPB 100 mls/hr Q6H-IV REED Administration Propofol 1,000,000 mcg in 100 mls @ 1.894 mls/hr 06/22/18 18:15 06/23/18 00: 00 Diprivan - IVPB 10 mcg/kg/min TITR REED 3.788 mls/hr Titration Protocol 5 MCG/KG/MIN Fentanyl 500 mcg/ Dextrose 100 mls @ 5 mls/hr 06/22/18 18:15 06/22/18 19:00 IVPB 5 mls/hr TITR REED Administration Protocol 25 MCG/HR Piperacillin Sod/Tazobactam 50 mls @ 100 mls/hr 06/23/18 02:00 06/23/18 09:38 Sod 3.375 gm/ Dextrose IVPB 100 mls/hr Q8H-IV REED Administration Protocol Norepinephrine Bitartrate 8, 500 mls @ 18.75 mls/hr 06/22/18 22:00 06/23/18 03:00 000 mcg/ Dextrose IV 25 mcg/min TITR REED 93.75 mls/hr Titration Protocol 5 MCG/MIN Phenylephrine HCl 20,000 mcg/ 250 mls @ 75 mls/hr 06/22/18 23:30 06/23/18 09: 35 Sodium Chloride IVPB 100 mcg/min ASDIR REED 75 mls/hr Administration Protocol 100 MCG/MIN Vancomycin HCl 1,000 mg/ 250 mls @ 166.667 mls/hr 06/23/18 10:26 Dextrose IVPB 06/23/18 11:55 ONCE ONE Protocol Vancomycin HCl 1,000 mg/ 250 mls @ 166.667 mls/hr 06/23/18 10:27 Dextrose IVPB 06/23/18 11:56 ONCE ONE Protocol Insulin Aspart 1 vial 06/22/18 22:00 06/23/18 06:19 Novolog Vial Sliding Scale - SQ 4 units ACHS REED Administration Protocol Levothyroxine Sodium 44 mcg 06/23/18 07:00 06/23/18 06:11 Synthroid Injection - IVPUSH 44 mcg 0700 REED Administration Metoprolol Tartrate 5 mg 06/22/18 18:00 06/23/18 06:19 Lopressor Injection - IVPUSH Not Given Q4H-IV REED Morphine Sulfate 2 mg 06/22/18 17:53 Morphine Sulfate IVPUSH Q6H PRN pain 6-10 Mupirocin 1 applic 06/22/18 22:00 06/23/18 09:57 Bactroban Ointment (For Decolonization) - NS 06/27/18 21:59 1 applic BID REED Administration Ondansetron HCl 4 mg 06/22/18 17:53 Zofran Injection IVPUSH Q6H PRN NAUSEA Pantoprazole Sodium 40 mg 06/23/18 10:00 06/23/18 09:38 Protonix Iv IVPUSH 40 mg DAILY REED Administration Microbiology 06/22/18 Unknown Gram Stain - Final Peritoneal Fluid Body Fluid Culture - Preliminary Group D Strep Or Entero Coccus Lactose Fermenting Neg Bacilli Assessment: 87 year old female with pmhx diastolic CHF, A fib, hypothyroid, CVA , breast CA, iron deficiency, DM II initially seen in [facility] lethargy and blood transfusion. Referred for colonoscopy, post procedure distention concern for perforation, transferred to [facility] for ex lap and surgical resection of rectosigmoid colon with end colostomy. Plan: 1. Septic shock, sepsis d/t colonic perforation s/p colonoscopy 06/22 - s/p Hartmans procedure 06/22 - Continue vasopressor support for BP - Continue vanco, zosyn - Follow cx - Surgery following for drainage and wound mgmt - Hold fluids for congestion, f/u AM CXR 2. A fib - Lopressor 5mg ivp prn - Not on AC - Hold PO meds: cardizem 180mg qday, tenormin 50mg po qday 3. Acute on chronic diastolic CHF - Hold po lasix d/t shock 4. Hypothyroidism - Synthroid 44mcg IVBP 5. Acute resp failure - Continue weaning per protocol - PPI 6. DVT ppx - Heparin sq 7. Electrolytes - Hyponatremia resolved - Hypocalcemia: corrected ~9 Visit type - Emergency Visit Emergency Visit: Yes ED Registration Date: 06/12/18 Care time: The patient presented to the Emergency Department on the above date and was hospitalized for further evaluation of their emergent condition. - New Patient This patient is new to me today: Yes Date on this admission: 06/23/18 - Critical Care Critical Care patient: Yes Total Critical Care Time (in minutes): 35 Critical Care Statement: The care of this patient involved high complexity decision making to prevent further life threatening deterioration of the patient 's condition and/or to evaluate & treat vital organ system(s) failure or risk of failure.
[2018-06-23] MEDS ORDERED: fentaNYL CITRATE 250 MCG/5 ML VIAL ONE (11:03)
[2018-06-23] MEDS: FENTANYL INJECTION 500 MCG in DEXTROSE 5%-WATER - 90 ML IVPB SCH ×2 (11:08→18:28)
[2018-06-23] MEDS: PROPOFOL 1,000,000 MCG/100 ML VIAL IVPB SCH ×2 (11:13→18:32)
--- NOTE | 2018-06-23 11:38 | PN ---
Progress Note (short form) - Note Progress Note: Patient seen postop in ICU; s/p sigmoid resection, ostomy, pouch - discussed operative findings with Dr. Manolo Lora. Patient remains intubated but being weaned off pressors. Arouseable and moving extremities. T 100.2 VSS bilat BS irreg HR/ A fib Abdomen with dressings in place, ostomy LLQ (pink) WBC 10-11K On IV antibiotics per ID and appears relatively stable. Postop care per Surgery and ICU team. Will follow.
[2018-06-23] MEDS ORDERED: VASOPRESSIN 20 UNITS/ML VIAL IV ONE (12:17)
[2018-06-23] MEDS: HYDROCORTISONE SOD SUCCINATE 100 MG/2 ML VIAL IVPB SCH ×3 (12:30→23:39)
[2018-06-23] MEDS: VASOPRESSIN 50 UNITS in SODIUM CHLORIDE 97.5 ML IVPB SCH (12:38)
--- NOTE | 2018-06-23 12:55 | PN ---
Teaching Attending Note Name of Resident: Alfredo Rodriguez ATTENDING PHYSICIAN STATEMENT I saw and evaluated the patient. I reviewed the resident's note and discussed the case with the resident. I agree with the resident's findings and plan as documented. SUBJECTIVE: Patient seen and examined in the ICU. Remains intubated and sedated. NE @ 25mcq and Phenylephrine @ 100mcq for hemodynamic support. AC Mode of vent. Noted poor urine output. Intake & Output 06/20/18 06/21/18 06/22/18 06/23/18 23:59 23:59 23:59 23:59 Intake Total 940 1070 5650 2111 Output Total 900 360 Balance 940 1070 4750 1751 Weight 135 lb 12.8 oz 135 lb 12.417 oz 139 lb 3.2 oz 150 lb 6 oz Last Vital Signs Temp Pulse Resp BP Pulse Ox 100.2 F H 110 H 15 90/51 96 06/23/18 09:00 06/23/18 12:38 06/23/18 11:27 06/23/18 12:38 06/23/18 09:00 Active Medications Albuterol/Ipratropium (Duoneb -) 1 amp NEB Q6H PRN PRN Reason: SHORTNESS OF BREATH Chlorhexidine Gluconate (Hibiclens For Decolonization -) 1 applic TP HS REED Last Admin: 06/22/18 21:38 Dose: 1 applic Chlorhexidine Gluconate (Peridex -) 15 ml MM BID REED Last Admin: 06/23/18 09:57 Dose: 15 ml Heparin Sodium (Porcine) (Heparin -) 5,000 unit SQ BID [facility] Last Admin: 06/23/18 09:42 Dose: 5,000 unit Hydrocortisone Sodium Succinate (Solu-Cortef -) 50 mg IVPB Q6H REED Metronidazole (Flagyl 500mg Premixed Ivpb -) 500 mg in 100 mls @ 100 mls/hr IVPB Q6H-IV REED Last Admin: 06/23/18 09:44 Dose: 100 mls/hr Propofol (Diprivan -) 1,000,000 mcg in 100 mls @ 1.894 mls/hr IVPB TITR REED; Protocol Last Admin: 06/23/18 11:13 Dose: 10 mcg/kg/min, 3.788 mls/hr Fentanyl 500 mcg/ Dextrose 100 mls @ 5 mls/hr IVPB TITR [facility]; Protocol Last Admin: 06/23/18 11:08 Dose: 5 mls/hr Piperacillin Sod/Tazobactam (Sod 3.375 gm/ Dextrose) 50 mls @ 100 mls/hr IVPB Q8H-IV REED; Protocol Last Admin: 06/23/18 09:38 Dose: 100 mls/hr Norepinephrine Bitartrate 8, (000 mcg/ Dextrose) 500 mls @ 18.75 mls/hr IV TITR REED; Protocol Last Titration: 06/23/18 03:00 Dose: 25 mcg/min, 93.75 mls/hr Phenylephrine HCl 20,000 mcg/ (Sodium Chloride) 250 mls @ 75 mls/hr IVPB ASDIR [facility]; Protocol Last Admin: 06/23/18 09:35 Dose: 100 mcg/min, 75 mls/hr Vasopressin 50 units/ Sodium (Chloride) 100 mls @ 4.8 mls/hr IVPB TITR [facility]; Protocol Last Admin: 06/23/18 12:38 Dose: 2.4 units/hr, 4.8 mls/hr Insulin Aspart (Novolog Vial Sliding Scale -) 1 vial SQ ACHS [facility]; Protocol Last Admin: 06/23/18 12:09 Dose: 2 units Levothyroxine Sodium (Synthroid Injection -) 44 mcg IVPUSH 0700 [facility] Last Admin: 06/23/18 06:11 Dose: 44 mcg Metoprolol Tartrate (Lopressor Injection -) 5 mg IVPUSH Q4H-IV [facility] Last Admin: 06/23/18 11:50 Dose: 5 mg Morphine Sulfate (Morphine Sulfate) 2 mg IVPUSH Q6H PRN PRN Reason: pain 6-10 Mupirocin (Bactroban Ointment (For Decolonization) -) 1 applic NS BID [facility] Stop: 06/27/18 21:59 Last Admin: 06/23/18 09:57 Dose: 1 applic Ondansetron HCl (Zofran Injection) 4 mg IVPUSH Q6H PRN PRN Reason: NAUSEA Pantoprazole Sodium (Protonix Iv) 40 mg IVPUSH DAILY [facility] Last Admin: 06/23/18 09:38 Dose: 40 mg Gen: Intubated and sedated Cardiovascular: Yes: Tachycardia, Pulse Irregular Respiratory: Yes: Intubated, Mechanically Ventilated, Rhonchi Gastrointestinal: Yes: post-op, No Bowel Sounds, dressing intact Edema: No Labs: Laboratory Results - last 24 hr 06/22/18 06/22/18 06/22/18 13:20 21:30 21:30 WBC 4.7 RBC 5.03 Hgb 12.0 Hct 38.2 D MCV 76.1 L MCH 23.9 L D MCHC 31.5 L RDW 29.7 H Plt Count 360 D MPV 9.4 Absolute Neuts (auto) Neutrophils % Lymphocytes % Monocytes % Eosinophils % Basophils % Nucleated RBC % Sodium 141 Potassium 4.1 Chloride 105 Carbon Dioxide 29 Anion Gap 7 L BUN 11 Creatinine 0.8 Creat Clearance w eGFR > 60 POC Glucometer Random Glucose 195 H Calcium 7.3 L Phosphorus 3.9 Magnesium 2.0 Total Bilirubin 1.2 H AST 23 ALT 16 Alkaline Phosphatase 78 D Total Protein 4.3 L D Albumin 1.7 L Blood Type O POSITIVE Antibody Screen Negative Crossmatch IS Only See Detail 06/22/18 06/23/18 06/23/18 21:31 05:30 05:30 WBC 10.8 H RBC 4.84 Hgb 11.7 Hct 36.7 MCV 75.9 L MCH 24.2 L MCHC 31.9 L RDW 30.2 H Plt Count 412 MPV 9.5 Absolute Neuts (auto) 9.8 Neutrophils % 90.4 H Lymphocytes % 3.9 L D Monocytes % 5.4 Eosinophils % 0.0 D Basophils % 0.3 Nucleated RBC % 0 Sodium 139 Potassium 3.7 Chloride 103 Carbon Dioxide 27 Anion Gap 9 BUN 13 Creatinine 0.7 Creat Clearance w eGFR > 60 POC Glucometer [phone] Random Glucose 211 H Calcium 7.0 L Phosphorus 3.4 Magnesium 1.9 Total Bilirubin AST ALT Alkaline Phosphatase Total Protein Albumin Blood Type Antibody Screen Crossmatch IS Only 06/23/18 06/23/18 06/23/18 05:30 05:30 05:37 WBC RBC Hgb Hct MCV MCH MCHC RDW Plt Count MPV Absolute Neuts (auto) Neutrophils % Lymphocytes % Monocytes % Eosinophils % Basophils % Nucleated RBC % Sodium Potassium Chloride Carbon Dioxide Anion Gap BUN Creatinine Creat Clearance w eGFR POC Glucometer 241.29091 Random Glucose Calcium Phosphorus Cancelled Magnesium Cancelled Total Bilirubin AST ALT Alkaline Phosphatase Total Protein Albumin Blood Type Antibody Screen Crossmatch IS Only Problem List - Problems (1) Acute on chronic diastolic heart failure Code(s): I50.33 - ACUTE ON CHRONIC DIASTOLIC (CONGESTIVE) HEART FAILURE (2) Atrial fibrillation Code(s): I48.91 - UNSPECIFIED ATRIAL FIBRILLATION Qualifiers: Atrial fibrillation type: persistent Qualified Code(s): I48.1 - Persistent atrial fibrillation (3) Pleural effusion Code(s): J90 - PLEURAL EFFUSION, NOT ELSEWHERE CLASSIFIED (4) Hypothyroidism Code(s): E03.9 - HYPOTHYROIDISM, UNSPECIFIED Qualifiers: Hypothyroidism type: unspecified Qualified Code(s): E03.9 - Hypothyroidism , unspecified (5) Perforation of colon as colonoscopy complication Code(s): K63.1 - PERFORATION OF INTESTINE (NONTRAUMATIC); K91.71 - ACCIDENTAL PNCTR & LAC OF A DGSTV SYS ORG DUR DGSTV SYS PROC (6) Status post Sam procedure Code(s): Z93.3 - COLOSTOMY STATUS (7) Acute on chronic respiratory failure with hypoxia and hypercapnia Code(s): J96.21 - ACUTE AND CHRONIC RESPIRATORY FAILURE WITH HYPOXIA; J96.22 - ACUTE AND CHRONIC RESPIRATORY FAILURE WITH HYPERCAPNIA Assessment/Plan POD #1: Lopez due to Colonic perforation and fecal peritonitis Septic Shock Acute hypercapneic respiratory failure Acute on chronic diastolic heart failure Pulmonary HTN Pleural effusions -> transudate Persistent AFib Hypothyroidism Anemia E coli UTI Carotid stenosis Right > Left PE ruled out by CTA PLAN: Volume resuscitation based on CVP and urine output parameters AC mode of vent: Not a candidate for wean Strict I & O ABX per ID Add Vasopressin and wean Phenylephrine Add stress dose steroids VTE prophylaxis GI prophylaxis ICU monitoring Dr Staton Critical care time spent in reviewing chart, evaluating patient and formulating plan - 36 minutes.
[2018-06-23] MEDS: VANCOMYCIN 1,000 MG in DEXTROSE 5%-WATER - 250 ML IVPB ONE ×2 (15:55→16:02)
[2018-06-23] MEDS ORDERED: ACETAMINOPHEN 1000 MG/100 ML VIAL (NON FORMULARY) IVPB ONE (16:30)
--- NOTE | 2018-06-23 16:41 | PN ---
Progress Note, Physician Chief Complaint: colonic perforation History of Present Illness: 87yo female MMP developed abdominal distention and pain during inpatient colonoscopy as part of a w/u for anemia. Found to have a colonic perforation at the level of the sigmoid. taken for operative intervention. Remains in ICU on sedated mechanically ventilated on vasopressor support. No acute changes overnight. - Current Medication List Current Medications: Active Medications Albuterol/Ipratropium (Duoneb -) 1 amp NEB Q6H PRN PRN Reason: SHORTNESS OF BREATH Chlorhexidine Gluconate (Hibiclens For Decolonization -) 1 applic TP HS REED Last Admin: 06/22/18 21:38 Dose: 1 applic Chlorhexidine Gluconate (Peridex -) 15 ml MM BID REED Last Admin: 06/23/18 09:57 Dose: 15 ml Heparin Sodium (Porcine) (Heparin -) 5,000 unit SQ BID REED Last Admin: 06/23/18 09:42 Dose: 5,000 unit Hydrocortisone Sodium Succinate (Solu-Cortef -) 50 mg IVPB Q6H REED Last Admin: 06/23/18 12:30 Dose: 50 mg Metronidazole (Flagyl 500mg Premixed Ivpb -) 500 mg in 100 mls @ 100 mls/hr IVPB Q6H-IV REED Last Admin: 06/23/18 14:52 Dose: 100 mls/hr Propofol (Diprivan -) 1,000,000 mcg in 100 mls @ 1.894 mls/hr IVPB TITR [facility]; Protocol Last Admin: 06/23/18 11:13 Dose: 10 mcg/kg/min, 3.788 mls/hr Fentanyl 500 mcg/ Dextrose 100 mls @ 5 mls/hr IVPB TITR [facility]; Protocol Last Admin: 06/23/18 11:08 Dose: 5 mls/hr Piperacillin Sod/Tazobactam (Sod 3.375 gm/ Dextrose) 50 mls @ 100 mls/hr IVPB Q8H-IV REED; Protocol Last Admin: 06/23/18 09:38 Dose: 100 mls/hr Norepinephrine Bitartrate 8, (000 mcg/ Dextrose) 500 mls @ 18.75 mls/hr IV TITR [facility]; Protocol Last Titration: 06/23/18 03:00 Dose: 25 mcg/min, 93.75 mls/hr Phenylephrine HCl 20,000 mcg/ (Sodium Chloride) 250 mls @ 75 mls/hr IVPB ASDIR [facility]; Protocol Last Titration: 06/23/18 15:45 Dose: 50 mcg/min, 37.5 mls/hr Vasopressin 50 units/ Sodium (Chloride) 100 mls @ 4.8 mls/hr IVPB TITR [facility]; Protocol Last Admin: 06/23/18 12:38 Dose: 2.4 units/hr, 4.8 mls/hr Lactated Ringer's (Lactated Ringers Solution) 1,000 ml in 1,000 mls @ 83 mls/ hr IV ASDIR REED Insulin Aspart (Novolog Vial Sliding Scale -) 1 vial SQ ACHS [facility]; Protocol Last Admin: 06/23/18 12:09 Dose: 2 units Levothyroxine Sodium (Synthroid Injection -) 44 mcg IVPUSH 0700 [facility] Last Admin: 06/23/18 06:11 Dose: 44 mcg Metoprolol Tartrate (Lopressor Injection -) 5 mg IVPUSH Q4H-IV [facility] Last Admin: 06/23/18 14:53 Dose: 5 mg Morphine Sulfate (Morphine Sulfate) 2 mg IVPUSH Q6H PRN PRN Reason: pain 6-10 Mupirocin (Bactroban Ointment (For Decolonization) -) 1 applic NS BID [facility] Stop: 06/27/18 21:59 Last Admin: 06/23/18 09:57 Dose: 1 applic Ondansetron HCl (Zofran Injection) 4 mg IVPUSH Q6H PRN PRN Reason: NAUSEA Pantoprazole Sodium (Protonix Iv) 40 mg IVPUSH DAILY [facility] Last Admin: 06/23/18 09:38 Dose: 40 mg - Objective Vital Signs: Vital Signs Temperature 101 F H 06/23/18 15:00 Pulse Rate 112 H 06/23/18 15:45 Respiratory Rate 14 06/23/18 16:04 Blood Pressure 142/68 06/23/18 15:45 O2 Sat by Pulse Oximetry (%) 98 06/23/18 10:00 Vital Signs Period Temp Pulse Resp BP Sys/De La O Pulse Ox Last 24 Hr 98.6 F-101 F 95-115 13-25 90-145/49-81 94-96 Intake & Output 08/03/18 08/04/18 08/04/18 23:59 07:59 15:59 Intake Total 3576 1232.9 Output Total 970 550 Balance 2606 682.9 Weight 155 lb 1 oz Intake: IV 3026 1082.9 DIPRIVAN - 1,000,000 mcg 78 41.3 In 100 ml @ 5 MCG/KG/MIN 1.894 mls/hr IVPB TITR [facility] Rx#:[id number] Fentanyl drip 81 35 LACTATED RINGERS SOLUTION 655 581 1,000 ml In 1,000 ml @ 83 mls/hr IV ASDIR [facility] Rx #:[id number] Levophed - 8,000 Mcg In 1440 392 D5w - 492 ml @ 5 MCG/MIN 18.75 mls/hr IV TITR [facility] Rx#:[id number] Arthur-Synephrine - 20,000 720 Mcg In Normal Saline - 248 ml @ 100 MCG/MIN 75 mls/hr IVPB ASDIR [facility] Rx# :[id number] Pitressin - 50 Units In 52 33.6 Normal Saline - 97.5 ml @ 2.4 UNITS/HR 4.8 mls/hr IVPB TITR [facility] Rx#: [id number] IVPB 550 150 Oral 0 0 Output: Gastric Drainage 500 200 Drainage 120 50 Right Abdomen 120 50 Urine 350 300 Atwood 350 300 Other: Voiding Method Indwelling Catheter Bowel Movement Yes: colos Weight Measurement Method Built in [facility] Constitutional: Yes: Well Nourished, No Distress, Calm Eyes: Yes: Conjunctiva Clear, EOM Intact HENT: Yes: Atraumatic, Normocephalic Neck: Yes: Supple, Trachea Midline Cardiovascular: Yes: Regular Rate and Rhythm, S1, S2 Respiratory: Yes: Regular, CTA Bilaterally, Diminished, Mechanically Ventilated Gastrointestinal: Yes: Normal Bowel Sounds, Soft, Other (Colostomy LLQ -- viable with stool, Plevic drain RLQ to suction serosanguinous ascites) ...Rectal Exam: Yes: Deferred Genitourinary: No: CVA Tenderness - Left, CVA Tenderness - Right Musculoskeletal: No: Muscle Pain, Muscle Weakness Extremities: No: Cool, Cyanosis Edema: No Peripheral Pulses WNL: Yes Peripheral Pulses: Left Radial: 2+, Right Radial: 2+, Left Doralis Pedis: 2+, Right Dorsalis Pedis: 2+ Wound/Incision: Yes: Clean/Dry, Ananya Intact, Dressing Dry and Intact, Unapproximated (Midline packed with moist gauze and 4X4 gauze sponges), Other ( colostomy mucousa pinkand viable, particulate liquid stool and gas noted in the bag). No: Draining, Reddened, Bleeding Labs: CBC, BMP 06/23/18 05:30 06/23/18 05:30 INR, PTT INR 1.27 (0.82-1.09) H 06/12/18 07:47 CBC,CMP WBC 18.0 K/mm3 (4.0-10.0) H 06/24/18 05:30 RBC 4.61 M/mm3 (3.60-5.2) 06/24/18 05:30 Hgb 10.9 GM/dL (10.7-15.3) 06/24/18 05:30 Hct 34.8 % (32.4-45.2) 06/24/18 05:30 MCV 75.5 fl (80-96) L 06/24/18 05:30 MCH 23.7 pg (25.7-33.7) L 06/24/18 05:30 MCHC 31.5 g/dl (32.0-36.0) L 06/24/18 05:30 RDW 30.1 % (11.6-15.6) H 06/24/18 05:30 Plt Count 311 K/MM3 (134-434) D 06/24/18 05:30 MPV 9.2 fl (7.5-11.1) 06/24/18 05:30 Absolute Neuts (auto) 16.6 # 06/24/18 05:30 Total Counted 100 06/12/18 07:25 Neutrophils % 92.0 % (42.8-82.8) H 06/24/18 05:30 Neutrophils % (Manual) 70.0 % (42.8-82.8) 06/24/18 05:30 Band Neutrophils % 18.0 % 06/24/18 05:30 Lymphocytes % 2.2 % (8-40) L D 06/24/18 05:30 Lymphocytes % (Manual) 3.0 % (8-40) L D 06/24/18 05:30 Monocytes % 5.7 % (3.8-10.2) 06/24/18 05:30 Monocytes % (Manual) 7 % (3.8-10.2) 06/24/18 05:30 Eosinophils % 0.0 % (0-4.5) 06/24/18 05:30 Eosinophils % (Manual) 3.0 % (0-4.5) 06/16/18 07:15 Basophils % 0.1 % (0-2.0) 06/24/18 05:30 Nucleated RBC % 0 % (0-0) 06/24/18 05:30 Metamyelocytes 2 % (0-2) 06/24/18 05:30 Hypochromia 3+ 06/18/18 08:00 Platelet Estimate Adequate 06/24/18 05:30 Platelet Comment No clumping noted 06/24/18 05:30 Anisocytosis 3+ 06/18/18 08:00 Microcytosis 1+ 06/18/18 08:00 Tear Drop Cells 1+ 06/18/18 08:00 Ovalocytes 1+ 06/18/18 08:00 Rouleaux 1+ 06/12/18 07:25 Retic Count 1.21 % (0.5-1.5) 06/12/18 07:47 Sodium 129 mmol/L (136-145) L 06/24/18 05:30 Potassium 3.9 mmol/L (3.5-5.1) 06/24/18 05:30 Chloride 94 mmol/L (98-107) L 06/24/18 05:30 Carbon Dioxide 26 mmol/L (21-32) 06/24/18 05:30 Anion Gap 9 (8-16) 06/24/18 05:30 BUN 15 mg/dL (7-18) 06/24/18 05:30 Creatinine 0.6 mg/dL (0.55-1.02) 06/24/18 05:30 Creat Clearance w eGFR > 60 (>60) 06/24/18 05:30 POC Glucometer 231.10372 UNITS (80-120) 06/24/18 05:34 Random Glucose 196 mg/dL (74-106) H 06/24/18 05:30 Lactic Acid 1.9 mmol/L (0.0-2.0) 06/14/18 08:30 Calcium 7.2 mg/dL (8.5-10.1) L 06/24/18 05:30 Phosphorus 3.4 mg/dL (2.5-4.9) 06/23/18 05:30 Magnesium 1.9 mg/dL (1.8-2.4) 06/23/18 05:30 Iron 14 ug/dL (27-139) L 06/13/18 07:37 TIBC 366 ug/dL (250-450) 06/12/18 07:37 Iron Saturation 4 % (15-55) L 06/12/18 07:37 Total Bilirubin 0.9 mg/dL (0.2-1.0) 06/24/18 05:30 AST 24 U/L (15-37) 06/24/18 05:30 ALT 18 U/L (12-78) 06/24/18 05:30 Alkaline Phosphatase 77 U/L (45-117) 06/24/18 05:30 Troponin I < 0.02 ng/ml (0.00-0.05) 06/12/18 07:47 B-Natriuretic Peptide 291.53 pg/ml (5-450) 06/12/18 07:47 Total Protein 4.3 g/dl (6.4-8.2) L 06/24/18 05:30 Albumin 1.5 g/dl (3.4-5.0) L 06/24/18 05:30 TSH 44.30 uIU/ml (0.358-3.74) H 06/12/18 07:47 Free T4 1.18 ng/dl (0.76-1.46) 06/17/18 10:45 Microbiology 06/22/18 Unknown Peritoneal Fluid Gram Stain - Final 06/22/18 Unknown Peritoneal Fluid Body Fluid Culture - Preliminary Group D Strep Or Entero Coccus Escherichia Coli 06/23/18 09:28 Blood - Peripheral Venous Blood Culture - Preliminary NO GROWTH OBTAINED AFTER 24 HOURS, INCUBATION TO CONTINUE FOR 4 DAYS. 06/23/18 09:35 Blood - Peripheral Venous Blood Culture - Preliminary NO GROWTH OBTAINED AFTER 24 HOURS, INCUBATION TO CONTINUE FOR 4 DAYS. 06/16/18 15:00 Pleural Fluid AFB Smear Concentration - Final 06/16/18 15:00 Pleural Fluid Mycobacterial Culture - Preliminary 06/16/18 15:00 Pleural Fluid Gram Stain - Final 06/16/18 15:00 Pleural Fluid Body Fluid Culture - Final NO GROWTH OF AEROBIC ORGANISMS AFTER 48 HOURS INCUBATION 07/27/18 15:00 Pleural Fluid Anaerobic Culture - Final NO ANAEROBES WERE ISOLATED 06/14/18 08:30 Blood - Peripheral Venous Blood Culture - Final NO GROWTH AFTER 5 DAYS INCUBATION 06/14/18 08:30 Blood - Peripheral Venous Blood Culture - Final NO GROWTH AFTER 5 DAYS INCUBATION 06/16/18 10:00 Sputum - Expectorated Gram Stain - Final 06/16/18 10:00 Sputum - Expectorated Sputum Culture - Final NORMAL RESPIRATORY EFRAIN 06/16/18 15:00 Pleural Fluid JACOB Preparation - Preliminary 06/16/18 15:00 Pleural Fluid Fungal Culture - Preliminary 06/14/18 10:30 Urine - Urine Atwood Urine Culture - Final Escherichia Coli 06/14/18 17:14 Urine For Antigen Detection Legionella Antigen - Final 06/14/18 17:14 Urine For Antigen Detection Streptococcus pneumoniae Antigen (M - Final - ....Imaging Chest X-ray: Report Reviewed, Image Reviewed (enlarged cardiac shadow, bilaterral lower lobe haziness, RIJ TLC, ET tube 2-3cm above mitchell) Problem List - Problems (1) Status post Sam procedure Assessment/Plan: POD#1 s/p Lopez's procedure after colonic perforation with significant fecal peritonitis. sepsis and MOSF in critical condition. Management per ICU team IVF resuscitation Strict I&Os IV antibiotics Trend labs and replete electrolytes Ween from vasopressor as hemodynamics allow Continue RLQ pelvic drain to suction Continue NGT to LCWS Local wound care - Abdominal wound daily or when soiled Dressin" iodoform packing, 4X4 gauze sponges and tape Measurement: upper midline [id number] and lower midline [id number] Optimize nutrition RONAL - reccomend PPN or TPN will follow This patient is critically ill. Time spent reviewing chart, examining patient, talking with providers and/or family and documentation is 45 minutes Code(s): Z93.3 - COLOSTOMY STATUS (2) Acute on chronic respiratory failure with hypoxia and hypercapnia Code(s): J96.21 - ACUTE AND CHRONIC RESPIRATORY FAILURE WITH HYPOXIA; J96.22 - ACUTE AND CHRONIC RESPIRATORY FAILURE WITH HYPERCAPNIA (3) Atrial fibrillation Code(s): I48.91 - UNSPECIFIED ATRIAL FIBRILLATION Qualifiers: Atrial fibrillation type: persistent Qualified Code(s): I48.1 - Persistent atrial fibrillation (4) Hypothyroidism Code(s): E03.9 - HYPOTHYROIDISM, UNSPECIFIED Qualifiers: Hypothyroidism type: unspecified Qualified Code(s): E03.9 - Hypothyroidism , unspecified (5) Perforation of colon as colonoscopy complication Code(s): K63.1 - PERFORATION OF INTESTINE (NONTRAUMATIC); K91.71 - ACCIDENTAL PNCTR & LAC OF A DGSTV SYS ORG DUR DGSTV SYS PROC
--- NOTE | 2018-06-23 20:01 | PN ---
Physical Exam: SUBJECTIVE: Patient seen and examined this am and evening in icu. Remains intubated and sedated. Son and daughter in law at bedside. OBJECTIVE: Vital Signs Period Temp Pulse Resp BP Sys/De La O Pulse Ox Last 24 Hr 98.6 F-101 F 91-115 12-16 89-142/40-81 96-100 General: Intubated and sedated HEAD- NC/AT LUNGS- Rhonchi b/l HEART- Irregular, tachycardia ABD- Soft, Colostomy in place Extremities- Feet cool to touch Skin: pallor, dry Laboratory Results - last 24 hr 06/22/18 06/22/18 06/22/18 21:30 21:30 21:31 WBC 4.7 RBC 5.03 Hgb 12.0 Hct 38.2 D MCV 76.1 L MCH 23.9 L D MCHC 31.5 L RDW 29.7 H Plt Count 360 D MPV 9.4 Absolute Neuts (auto) Neutrophils % Lymphocytes % Monocytes % Eosinophils % Basophils % Nucleated RBC % Sodium 141 Potassium 4.1 Chloride 105 Carbon Dioxide 29 Anion Gap 7 L BUN 11 Creatinine 0.8 Creat Clearance w eGFR > 60 POC Glucometer [phone] Random Glucose 195 H Calcium 7.3 L Phosphorus 3.9 Magnesium 2.0 Total Bilirubin 1.2 H AST 23 ALT 16 Alkaline Phosphatase 78 D Total Protein 4.3 L D Albumin 1.7 L 06/23/18 06/23/18 06/23/18 05:30 05:30 05:30 WBC 10.8 H RBC 4.84 Hgb 11.7 Hct 36.7 MCV 75.9 L MCH 24.2 L MCHC 31.9 L RDW 30.2 H Plt Count 412 MPV 9.5 Absolute Neuts (auto) 9.8 Neutrophils % 90.4 H Lymphocytes % 3.9 L D Monocytes % 5.4 Eosinophils % 0.0 D Basophils % 0.3 Nucleated RBC % 0 Sodium 139 Potassium 3.7 Chloride 103 Carbon Dioxide 27 Anion Gap 9 BUN 13 Creatinine 0.7 Creat Clearance w eGFR > 60 POC Glucometer Random Glucose 211 H Calcium 7.0 L Phosphorus 3.4 Cancelled Magnesium 1.9 Total Bilirubin AST ALT Alkaline Phosphatase Total Protein Albumin 06/23/18 06/23/18 05:30 05:37 WBC RBC Hgb Hct MCV MCH MCHC RDW Plt Count MPV Absolute Neuts (auto) Neutrophils % Lymphocytes % Monocytes % Eosinophils % Basophils % Nucleated RBC % Sodium Potassium Chloride Carbon Dioxide Anion Gap BUN Creatinine Creat Clearance w eGFR POC Glucometer [phone] Random Glucose Calcium Phosphorus Magnesium Cancelled Total Bilirubin AST ALT Alkaline Phosphatase Total Protein Albumin Active Medications Generic Name Dose Route Start Last Admin Trade Name Freq PRN Reason Stop Dose Admin Albuterol/Ipratropium 1 amp 06/22/18 17:53 Duoneb - NEB Q6H PRN SHORTNESS OF BREATH Chlorhexidine Gluconate 1 applic 06/22/18 22:00 06/22/18 21:38 Hibiclens For Decolonization - TP 1 applic HS REED Administration Chlorhexidine Gluconate 15 ml 06/23/18 10:00 06/23/18 09:57 Peridex - MM 15 ml BID REED Administration Heparin Sodium (Porcine) 5,000 unit 06/22/18 22:00 06/23/18 09:42 Heparin - SQ 5,000 unit BID REED Administration Hydrocortisone Sodium Succinate 50 mg 06/23/18 12:00 06/23/18 17:29 Solu-Cortef - IVPB 50 mg Q6H REED Administration Metronidazole 500 mg in 100 mls @ 100 mls/hr 06/22/18 21:00 06/23/18 14:52 Flagyl 500mg Premixed Ivpb - IVPB 100 mls/hr Q6H-IV REED Administration Propofol 1,000,000 mcg in 100 mls @ 1.894 mls/hr 06/22/18 18:15 06/23/18 18: 32 Diprivan - IVPB 15 mcg/kg/min TITR REED 5.683 mls/hr Administration Protocol 5 MCG/KG/MIN Fentanyl 500 mcg/ Dextrose 100 mls @ 5 mls/hr 06/22/18 18:15 06/23/18 18:28 IVPB Not Given TITR REED Protocol 25 MCG/HR Piperacillin Sod/Tazobactam 50 mls @ 100 mls/hr 06/23/18 02:00 06/23/18 17:34 Sod 3.375 gm/ Dextrose IVPB 100 mls/hr Q8H-IV REED Administration Protocol Norepinephrine Bitartrate 8, 500 mls @ 18.75 mls/hr 06/22/18 22:00 06/23/18 03:00 000 mcg/ Dextrose IV 25 mcg/min TITR REED 93.75 mls/hr Titration Protocol 5 MCG/MIN Phenylephrine HCl 20,000 mcg/ 250 mls @ 75 mls/hr 06/22/18 23:30 06/23/18 18: 00 Sodium Chloride IVPB 10 mcg/min ASDIR REED 7.5 mls/hr Titration Protocol 100 MCG/MIN Vasopressin 50 units/ Sodium 100 mls @ 4.8 mls/hr 06/23/18 12:00 06/23/18 12: 38 Chloride IVPB 2.4 units/hr TITR REED 4.8 mls/hr Administration Protocol 2.4 UNITS/HR Lactated Ringer's 1,000 ml in 1,000 mls @ 83 mls/hr 06/23/18 16:30 06/23/18 16:30 Lactated Ringers Solution IV Not Given ASDIR REED Insulin Aspart 1 vial 06/22/18 22:00 06/23/18 17:16 Novolog Vial Sliding Scale - SQ 6 units ACHS REED Administration Protocol Levothyroxine Sodium 44 mcg 06/23/18 07:00 06/23/18 06:11 Synthroid Injection - IVPUSH 44 mcg 0700 REED Administration Metoprolol Tartrate 5 mg 06/22/18 18:00 06/23/18 19:00 Lopressor Injection - IVPUSH Not Given Q4H-IV REED Morphine Sulfate 2 mg 06/22/18 17:53 Morphine Sulfate IVPUSH Q6H PRN pain 6-10 Mupirocin 1 applic 06/22/18 22:00 06/23/18 09:57 Bactroban Ointment (For Decolonization) - NS 06/27/18 21:59 1 applic BID REED Administration Ondansetron HCl 4 mg 06/22/18 17:53 Zofran Injection IVPUSH Q6H PRN NAUSEA Pantoprazole Sodium 40 mg 06/23/18 10:00 06/23/18 09:38 Protonix Iv IVPUSH 40 mg DAILY REED Administration ASSESSMENT/PLAN: Ms. Singh is an 87 y/o lady with a past medical history of A. fib (no AC), CVA , breast cancer, hypothyroidism, iron deficiency anemia, and DM. Pt has a h/o occult GI bleeding requiring blood transfusions. Pt has had a recent development of severe microcytic anemia and heme + stool. Has been on aspirin chronically for A fib. Has not had any specific GI complaints and has refused GI workups in past. Pt was referred to [facility] for a colonoscopy to r/o any GI bleed. Pt developed a perforation of her rectosigmoid colon s/p colonoscopy. Dr Lora, General Surgeon, was notified and pt was transfered from [facility] to [facility]. An exploratory laparotomy was performed where surgical resection of the rectosigmoid colon with closure of the anorectal stump and formation of an end colostomy Neuro: Intubated and Sedated. Propofol and Fentanyl Vasopressin -2.4 mg Started today Solu-cortef -50 mg IVPB Q6H Phenylephrine -10 mcg/min Norepinephrine Bitartrate 8- 25 mcg/min G.I: -Colonic perforation, fecal peritonitis -S/P Lopez procedure POD #1 -Continue empiric zosyn/ flagyl per Dr Saini, ID -ICU monitoring PULM: 1 AMP NEB Q6H AFIB: Lopressor Injection 5 mg IVPUSH Q4H Home Meds- ASA 325, Cardizem 180 PO Daily, Tenormin 50 MG PO Daily. Per Cardiology Dr Carrizales: May use amio or digoxin as needed for rate-control while hypotensive FEN LR 1,000 ml in 1,000 mls @ 125 mls/hr Monitor Electrolytes NPO DVT ppx: 5,000 unit SQ BID Dispo- continue to monitor in icu. Visit type - Emergency Visit Emergency Visit: Yes ED Registration Date: 06/12/18 Care time: The patient presented to the Emergency Department on the above date and was hospitalized for further evaluation of their emergent condition. - New Patient This patient is new to me today: No - Critical Care Critical Care patient: Yes Total Critical Care Time (in minutes): 35 Critical Care Statement: The care of this patient involved high complexity decision making to prevent further life threatening deterioration of the patient 's condition and/or to evaluate & treat vital organ system(s) failure or risk of failure.
[2018-06-23] MEDS: NOREPINEPHRINE BITARTRATE 8,000 MCG in DEXTROSE 5%-WATER - 492 ML IV SCH (21:11)
[2018-06-23] MEDS: CHLORHEXIDINE GLUCONATE 4% CLEANSER FOR DECOLONIZATION TP SCH (21:11)
[2018-06-24] MEDS ORDERED: PIPERACILLIN/TAZOBACTAM 3.375 GM VIAL IVPB ONE ×2 (02:45→18:14)
[2018-06-24] MEDS ORDERED: DEXTROSE 5%-WATER - 50 ML IVPB ONE ×2 (02:46→18:14)
[2018-06-24] MEDS: METOPROLOL TARTRATE 5 MG/5 ML VIAL IVPUSH SCH ×6 (02:54→21:16)
[2018-06-24] MEDS: PIPERACILLIN/TAZOB 3.375 GM 3.375 GM in DEXTROSE 5%-WATER - 50 ML IVPB SCH ×3 (02:54→17:14)
[2018-06-24] MEDS ORDERED: NOREPINEPHRINE BITARTRATE 4 MG/4 ML ML IV ONE ×2 (03:29→16:02)
[2018-06-24] MEDS ORDERED: VASOPRESSIN 20 UNITS/ML VIAL IV ONE (03:30)
[2018-06-24] MEDS ORDERED: PT OWN MED DRAWER 7, Y5N ONE ×3 (05:25→17:09)
[2018-06-24] MEDS: INSULIN SLIDING SCALE (NOVOLOG) 1 VIAL SQ SCH ×4 (06:03→21:22)
[2018-06-24] MEDS: HYDROCORTISONE SOD SUCCINATE 100 MG/2 ML VIAL IVPB SCH ×4 (06:03→23:33)
[2018-06-24] MEDS: LEVOTHYROXINE SODIUM 100 MCG VIAL IVPUSH SCH (06:04)
[2018-06-24 06:05] LABS: BASO % 0.1 % (0-2.0); HEMATOCRIT 34.8 % (32.4-45.2); HEMOGLOBIN 10.9 GM/dL (10.7-15.3); LYMPH % 2.2 % (8-40); MCH 23.7 pg (25.7-33.7); MCHC 31.5 g/dl (32.0-36.0); MEAN CELL VOLUME 75.5 fl (80-96); MEAN PLT VOLUME 9.2 fl (7.5-11.1); MONO % 5.7 % (3.8-10.2); PLATELET COUNT 311 K/MM3 (134-434); RBC 4.61 M/mm3 (3.60-5.2); RDW 30.1 % (11.6-15.6)
[2018-06-24 06:28] LABS: CHLORIDE 94 mmol/L (98-107); POTASSIUM 3.9 mmol/L (3.5-5.1); SODIUM 129 mmol/L (136-145)
[2018-06-24 06:38] LABS: ALBUMIN 1.5 g/dl (3.4-5.0); ALK PHOS 77 U/L (45-117); ANION GAP 9 (8-16); BILIRUBIN,TOTAL 0.9 mg/dL (0.2-1.0); BLOOD UREA NITROGEN 15 mg/dL (7-18); CALCIUM 7.2 mg/dL (8.5-10.1); CO2 26 mmol/L (21-32); CREATININE 0.6 mg/dL (0.55-1.02); GLUCOSE,RANDOM 196 mg/dL (74-106); SGOT/AST 24 U/L (15-37); SGPT/ALT 18 U/L (12-78); TOT PROT 4.3 g/dl (6.4-8.2)
--- NOTE | 2018-06-24 07:17 | PN ---
Progress Note (short form) - Note Progress Note: Chief Complaint: Events noted, notes reviewed, remains sedated and intubated, on pressors, atrial fibrillation persists History of Present Illness: Seen and examined in the ICU. Events noted, notes reviewed, remains sedated and intubated, on pressors, atrial fibrillation persists Patient is post recto-sigmoid perforation, post Lopez's procedure with fecal peritonitis, POD#2 Chest CTA: no CT evidence of pulmonary embolism, pulmonary vascular congestion with cardiomegaly, bilateral pleural effusion Echocardiography revealed normal LV size and function, trace pericardial effusion, pleural effusion, mild to moderate MR, severe TR, RVSP 30-40 mmHg - Current Medication List Current Medications: Current Medications Albuterol/Ipratropium (Duoneb -) 1 amp NEB Q6H PRN PRN Reason: SHORTNESS OF BREATH Chlorhexidine Gluconate (Hibiclens For Decolonization -) 1 applic TP HS REED Last Admin: 06/23/18 21:11 Dose: 1 applic Chlorhexidine Gluconate (Peridex -) 15 ml MM BID REED Last Admin: 06/23/18 21:12 Dose: 15 ml Heparin Sodium (Porcine) (Heparin -) 5,000 unit SQ BID REED Last Admin: 06/23/18 21:09 Dose: 5,000 unit Hydrocortisone Sodium Succinate (Solu-Cortef -) 50 mg IVPB Q6H REED Last Admin: 06/24/18 06:03 Dose: 50 mg Metronidazole (Flagyl 500mg Premixed Ivpb -) 500 mg in 100 mls @ 100 mls/hr IVPB Q6H-IV REED Last Admin: 06/24/18 02:54 Dose: 100 mls/hr Propofol (Diprivan -) 1,000,000 mcg in 100 mls @ 1.894 mls/hr IVPB TITR REED; Protocol Last Admin: 06/23/18 18:32 Dose: 15 mcg/kg/min, 5.683 mls/hr Fentanyl 500 mcg/ Dextrose 100 mls @ 5 mls/hr IVPB TITR REED; Protocol Last Admin: 06/23/18 18:28 Dose: Not Given Piperacillin Sod/Tazobactam (Sod 3.375 gm/ Dextrose) 50 mls @ 100 mls/hr IVPB Q8H-IV REED; Protocol Last Admin: 06/24/18 02:54 Dose: 100 mls/hr Norepinephrine Bitartrate 8, (000 mcg/ Dextrose) 500 mls @ 18.75 mls/hr IV TITR [facility]; Protocol Last Titration: 06/24/18 03:39 Dose: 15 mcg/min, 56.25 mls/hr Vasopressin 50 units/ Sodium (Chloride) 100 mls @ 4.8 mls/hr IVPB TITR [facility]; Protocol Last Admin: 06/23/18 12:38 Dose: 2.4 units/hr, 4.8 mls/hr Lactated Ringer's (Lactated Ringers Solution) 1,000 ml in 1,000 mls @ 83 mls/ hr IV ASDIR [facility] Last Admin: 06/23/18 19:45 Dose: 83 mls/hr Insulin Aspart (Novolog Vial Sliding Scale -) 1 vial SQ ACHS [facility]; Protocol Last Admin: 06/24/18 06:03 Dose: 4 units Levothyroxine Sodium (Synthroid Injection -) 44 mcg IVPUSH 0700 [facility] Last Admin: 06/24/18 06:04 Dose: 44 mcg Metoprolol Tartrate (Lopressor Injection -) 5 mg IVPUSH Q4H-IV [facility] Last Admin: 06/24/18 06:03 Dose: Not Given Morphine Sulfate (Morphine Sulfate) 2 mg IVPUSH Q6H PRN PRN Reason: pain 6-10 Mupirocin (Bactroban Ointment (For Decolonization) -) 1 applic NS BID [facility] Stop: 06/27/18 21:59 Last Admin: 06/23/18 21:09 Dose: 1 applic Ondansetron HCl (Zofran Injection) 4 mg IVPUSH Q6H PRN PRN Reason: NAUSEA Pantoprazole Sodium (Protonix Iv) 40 mg IVPUSH DAILY [facility] Last Admin: 06/23/18 09:38 Dose: 40 mg Review of Systems: Unable to obtain - Objective Vital Signs: Last Vital Signs Temp Pulse Resp BP Pulse Ox 98.9 F 102 H 18 107/52 94 L 06/24/18 06:00 06/24/18 07:00 06/24/18 07:07 06/24/18 07:00 06/23/18 21:00 Intake & Output 06/21/18 06/22/18 06/23/18 06/24/18 23:59 23:59 23:59 23:59 Intake Total 1070 5650 5687 1232.9 Output Total 900 1530 550 Balance 1070 4750 4157 682.9 Weight 135 lb 12.417 oz 139 lb 3.2 oz 150 lb 6 oz 155 lb 1 oz Neck: Supple Negative JVD NO Bruit Cardiovascular: S1 S2 Irregularly Irregular Respiratory: Bilateral Scattered Rhonchi Gastrointestinal: Soft Hypoactive Bowel Sounds Ext: No Edema Labs: CBC, BMP 06/24/18 05:30 06/24/18 05:30 INR, PTT INR 1.27 (0.82-1.09) H 06/12/18 07:47 Hepatic Panel Total Bilirubin 0.9 mg/dL (0.2-1.0) 06/24/18 05:30 AST 24 U/L (15-37) 06/24/18 05:30 ALT 18 U/L (12-78) 06/24/18 05:30 Alkaline Phosphatase 77 U/L (45-117) 06/24/18 05:30 Albumin 1.5 g/dl (3.4-5.0) L 06/24/18 05:30 Assessment/Plan ASSESSMENT: 1. Colonic perforation, fecal peritonitis, sepsis POD#2 post Lopez procedure 2. Acute hypercapneic respiratory failure referable to 3. Acute on chronic class II NYHA classification LV failure related to diastolic LV dysfunction 4. CAD angina pectoris 5. Severe TR with pulmonary HTN 6. Pleural effusions post right thoracentesis (transudate) 7. Persistent atrial fibrillation with periods of rapid ventricular response [id number] score of 5, not on A/C as patient has declined in past 8. Hypothyroidism 9. Carotid stenosis 10. Anemia 11. E. coli UTI 12. Hyponatremia, persistent PLAN: 1. Antibiotics as per the primary team/ID 2. Vent management as per ICU team 3. Titrate pressors to maintain MAP>65 mmHg, attempt to wean off as tolerated 4. B-Blockers to assist with rate control hemodynamics permitting, otherwise consider Amiodarone +/- Digoxin with caution 5. Diuretics/Lasix as needed with caution in view of the above noted Hyponatremia (Hyponatremia correction) 6. Considering the above noted [id number] score of 5 A/C recommended unless it is absolutely contraindicated Condition remains critical Taty Rodriguez MD
[2018-06-24 07:32] LABS: ARTERIAL BLOOD GAS BASE EXCESS -0.9 meq/l (-2-2); ARTERIAL BLOOD GAS PCO2 38.9 mmHg (35-45); ARTERIAL BLOOD GAS pH 7.39 (7.35-7.45)
[2018-06-24 07:37] LABS: ALLENS TEST POSITIVE
[2018-06-24] MEDS: HEPARIN NA (PORCINE) 5,000 UNITS/ML 1ML VIAL SQ SCH ×2 (09:28→21:16)
[2018-06-24] MEDS: PANTOPRAZOLE SODIUM 40 MG VIAL IVPUSH SCH (09:28)
[2018-06-24] MEDS: MUPIROCIN 2% TOPICAL OINTMENT FOR DECOLONIZATION NS SCH ×2 (09:29→21:16)
[2018-06-24] MEDS: CHLORHEXIDINE GLUCONATE 0.12% 15ML CUP MM SCH ×2 (09:30→21:17)
--- NOTE | 2018-06-24 09:48 | PN ---
Progress Note, Physician History of Present Illness: Intubated Repsonsive to tactile stimulus Febrile Hypotensive on pressors WBC 18K Final operative cultures pending - Current Medication List Current Medications: Active Medications Albuterol/Ipratropium (Duoneb -) 1 amp NEB Q6H PRN PRN Reason: SHORTNESS OF BREATH Chlorhexidine Gluconate (Hibiclens For Decolonization -) 1 applic TP HS REED Last Admin: 06/23/18 21:11 Dose: 1 applic Chlorhexidine Gluconate (Peridex -) 15 ml MM BID REED Last Admin: 06/24/18 09:30 Dose: 15 ml Heparin Sodium (Porcine) (Heparin -) 5,000 unit SQ BID REED Last Admin: 06/24/18 09:28 Dose: 5,000 unit Hydrocortisone Sodium Succinate (Solu-Cortef -) 50 mg IVPB Q6H REED Last Admin: 06/24/18 06:03 Dose: 50 mg Metronidazole (Flagyl 500mg Premixed Ivpb -) 500 mg in 100 mls @ 100 mls/hr IVPB Q6H-IV REED Last Admin: 06/24/18 09:29 Dose: 100 mls/hr Propofol (Diprivan -) 1,000,000 mcg in 100 mls @ 1.894 mls/hr IVPB TITR REED; Protocol Last Admin: 06/23/18 18:32 Dose: 15 mcg/kg/min, 5.683 mls/hr Fentanyl 500 mcg/ Dextrose 100 mls @ 5 mls/hr IVPB TITR REED; Protocol Last Admin: 06/23/18 18:28 Dose: Not Given Piperacillin Sod/Tazobactam (Sod 3.375 gm/ Dextrose) 50 mls @ 100 mls/hr IVPB Q8H-IV REED; Protocol Last Admin: 06/24/18 09:28 Dose: 100 mls/hr Norepinephrine Bitartrate 8, (000 mcg/ Dextrose) 500 mls @ 18.75 mls/hr IV TITR REED; Protocol Last Titration: 06/24/18 03:39 Dose: 15 mcg/min, 56.25 mls/hr Vasopressin 50 units/ Sodium (Chloride) 100 mls @ 4.8 mls/hr IVPB TITR [facility]; Protocol Last Admin: 06/23/18 12:38 Dose: 2.4 units/hr, 4.8 mls/hr Lactated Ringer's (Lactated Ringers Solution) 1,000 ml in 1,000 mls @ 83 mls/ hr IV ASDIR [facility] Last Admin: 06/23/18 19:45 Dose: 83 mls/hr Insulin Aspart (Novolog Vial Sliding Scale -) 1 vial SQ ACHS [facility]; Protocol Last Admin: 06/24/18 06:03 Dose: 4 units Levothyroxine Sodium (Synthroid Injection -) 44 mcg IVPUSH 0700 [facility] Last Admin: 06/24/18 06:04 Dose: 44 mcg Metoprolol Tartrate (Lopressor Injection -) 5 mg IVPUSH Q4H-IV [facility] Last Admin: 06/24/18 09:30 Dose: Not Given Morphine Sulfate (Morphine Sulfate) 2 mg IVPUSH Q6H PRN PRN Reason: pain 6-10 Mupirocin (Bactroban Ointment (For Decolonization) -) 1 applic NS BID [facility] Stop: 06/27/18 21:59 Last Admin: 06/24/18 09:29 Dose: 1 applic Ondansetron HCl (Zofran Injection) 4 mg IVPUSH Q6H PRN PRN Reason: NAUSEA Pantoprazole Sodium (Protonix Iv) 40 mg IVPUSH DAILY [facility] Last Admin: 06/24/18 09:28 Dose: 40 mg - Objective Vital Signs: Vital Signs Temperature 98.9 F 06/24/18 06:00 Pulse Rate 104 H 06/24/18 09:30 Respiratory Rate 25 H 06/24/18 08:20 Blood Pressure 102/56 06/24/18 09:30 O2 Sat by Pulse Oximetry (%) 96 06/24/18 08:20 Constitutional: Yes: No Distress Eyes: Yes: Conjunctiva Clear Cardiovascular: Yes: Regular Rate and Rhythm, S1, S2 Respiratory: Yes: Mechanically Ventilated Gastrointestinal: Yes: Other (Abdomen slightly distended, midline surgical wound packed, + ostomy) Edema: Yes Labs: CBC, BMP 06/24/18 05:30 06/24/18 05:30 INR, PTT INR 1.27 (0.82-1.09) H 06/12/18 07:47 Assessment/Plan POD #2 Lopez procedure Colonic perforation, fecal peritonitis Sepsis/ septic shock secondary to GI source Operative c/s LF, grp D strep Pulmonary vascular congestion ? pneumonia Continue empiric zosyn/ flagyl Await operative cultures ICU monitoring Prognosis guarded
[2018-06-24] MEDS ORDERED: fentaNYL CITRATE 250 MCG/5 ML VIAL ONE (10:09)
[2018-06-24] MEDS: FENTANYL INJECTION 500 MCG in DEXTROSE 5%-WATER - 90 ML IVPB SCH ×2 (10:11→18:18)
--- NOTE | 2018-06-24 11:07 | PN ---
Progress Note, Physician Chief Complaint: colonic perforation History of Present Illness: 87yo female MMP developed abdominal distention and pain during inpatient colonoscopy as part of a w/u for anemia. Found to have a colonic perforation at the level of the sigmoid. taken for operative intervention. Remains in ICU on sedated mechanically ventilated on vasopressor support. No acute changes overnight. - Current Medication List Current Medications: Active Medications Albuterol/Ipratropium (Duoneb -) 1 amp NEB Q6H PRN PRN Reason: SHORTNESS OF BREATH Chlorhexidine Gluconate (Hibiclens For Decolonization -) 1 applic TP HS REED Last Admin: 06/23/18 21:11 Dose: 1 applic Chlorhexidine Gluconate (Peridex -) 15 ml MM BID REED Last Admin: 06/24/18 09:30 Dose: 15 ml Heparin Sodium (Porcine) (Heparin -) 5,000 unit SQ BID REED Last Admin: 06/24/18 09:28 Dose: 5,000 unit Hydrocortisone Sodium Succinate (Solu-Cortef -) 50 mg IVPB Q6H REED Last Admin: 06/24/18 06:03 Dose: 50 mg Metronidazole (Flagyl 500mg Premixed Ivpb -) 500 mg in 100 mls @ 100 mls/hr IVPB Q6H-IV REED Last Admin: 06/24/18 09:29 Dose: 100 mls/hr Propofol (Diprivan -) 1,000,000 mcg in 100 mls @ 1.894 mls/hr IVPB TITR [facility]; Protocol Last Admin: 06/23/18 18:32 Dose: 15 mcg/kg/min, 5.683 mls/hr Fentanyl 500 mcg/ Dextrose 100 mls @ 5 mls/hr IVPB TITR [facility]; Protocol Last Admin: 06/24/18 10:11 Dose: 5 mls/hr Piperacillin Sod/Tazobactam (Sod 3.375 gm/ Dextrose) 50 mls @ 100 mls/hr IVPB Q8H-IV [facility]; Protocol Last Admin: 06/24/18 09:28 Dose: 100 mls/hr Norepinephrine Bitartrate 8, (000 mcg/ Dextrose) 500 mls @ 18.75 mls/hr IV TITR RE[facility]; Protocol Last Titration: 06/24/18 03:39 Dose: 15 mcg/min, 56.25 mls/hr Vasopressin 50 units/ Sodium (Chloride) 100 mls @ 4.8 mls/hr IVPB TITR [facility]; Protocol Last Admin: 06/23/18 12:38 Dose: 2.4 units/hr, 4.8 mls/hr Sodium Chloride (Normal Saline -) 1,000 mls @ 83 mls/hr IV ASDIR [facility] Insulin Aspart (Novolog Vial Sliding Scale -) 1 vial SQ ACHS [facility]; Protocol Last Admin: 06/24/18 06:03 Dose: 4 units Levothyroxine Sodium (Synthroid Injection -) 44 mcg IVPUSH 0700 [facility] Last Admin: 06/24/18 06:04 Dose: 44 mcg Metoprolol Tartrate (Lopressor Injection -) 5 mg IVPUSH Q4H-IV [facility] Last Admin: 06/24/18 09:30 Dose: Not Given Morphine Sulfate (Morphine Sulfate) 2 mg IVPUSH Q6H PRN PRN Reason: pain 6-10 Mupirocin (Bactroban Ointment (For Decolonization) -) 1 applic NS BID [facility] Stop: 06/27/18 21:59 Last Admin: 06/24/18 09:29 Dose: 1 applic Ondansetron HCl (Zofran Injection) 4 mg IVPUSH Q6H PRN PRN Reason: NAUSEA Pantoprazole Sodium (Protonix Iv) 40 mg IVPUSH DAILY [facility] Last Admin: 06/24/18 09:28 Dose: 40 mg - Objective Vital Signs: Vital Signs Temperature 98.9 F 06/24/18 06:00 Pulse Rate 104 H 06/24/18 09:30 Respiratory Rate 25 H 06/24/18 08:20 Blood Pressure 102/56 06/24/18 09:30 O2 Sat by Pulse Oximetry (%) 96 06/24/18 08:20 Vital Signs Period Temp Pulse Resp BP Sys/De La O Pulse Ox Last 24 Hr 98.6 F-101 F 95-115 11-25 90-145/49-81 94-96 Intake & Output 06/23/18 06/24/18 06/24/18 23:59 07:59 15:59 Intake Total 3576 1232.9 Output Total 970 550 Balance 2606 682.9 Weight 155 lb 1 oz Intake: IV 3026 1082.9 DIPRIVAN - 1,000,000 mcg 78 41.3 In 100 ml @ 5 MCG/KG/MIN 1.894 mls/hr IVPB TITR [facility] Rx#:[id number] Fentanyl drip 81 35 LACTATED RINGERS SOLUTION 655 581 1,000 ml In 1,000 ml @ 83 mls/hr IV ASDIR [facility] Rx #:[id number] Levophed - 8,000 Mcg In 1440 392 D5w - 492 ml @ 5 MCG/MIN 18.75 mls/hr IV TITR [facility] Rx#:[id number] Arthur-Synephrine - 20,000 720 Mcg In Normal Saline - 248 ml @ 100 MCG/MIN 75 mls/hr IVPB ASDIR [facility] Rx# :[id number] Pitressin - 50 Units In 52 33.6 Normal Saline - 97.5 ml @ 2.4 UNITS/HR 4.8 mls/hr IVPB TITR RE[facility] Rx#: [id number] IVPB 550 150 Oral 0 0 Output: Gastric Drainage 500 200 Drainage 120 50 Right Abdomen 120 50 Urine 350 300 Atwood 350 300 Other: Voiding Method Indwelling Catheter Bowel Movement Yes: colos Weight Measurement Method Built in [facility] Constitutional: Yes: Well Nourished, No Distress, Calm Eyes: Yes: Conjunctiva Clear, EOM Intact HENT: Yes: Atraumatic, Normocephalic Neck: Yes: Supple, Trachea Midline Cardiovascular: Yes: Tachycardia, Pulse Irregular, S1, S2 Respiratory: Yes: Regular, Diminished, Mechanically Ventilated Gastrointestinal: Yes: Normal Bowel Sounds, Soft, Other (Colostomy LLQ -- viable with stool, Plevic drain RLQ to suction serosanguinous ascites). No: Tenderness, Tenderness, Epigastrium, Tenderness, Rebound ...Rectal Exam: Yes: Deferred Genitourinary: Yes: Atwood Present. No: CVA Tenderness - Left, CVA Tenderness - Right Musculoskeletal: No: Muscle Pain, Muscle Weakness Extremities: No: Cool, Cyanosis Edema: Yes Edema: LUE: 1+, RUE: 1+, LLE: 1+, RLE: 1+ Peripheral Pulses WNL: Yes Peripheral Pulses: Left Radial: 2+, Right Radial: 2+, Left Doralis Pedis: 2+, Right Dorsalis Pedis: 2+ Integumentary: No: Bruising, Jaundice Wound/Incision: Yes: Clean/Dry, Ananya Intact, Dressing Dry and Intact, Unapproximated. No: Draining, Reddened, Bleeding Labs: CBC, BMP 06/24/18 05:30 06/24/18 05:30 INR, PTT INR 1.27 (0.82-1.09) H 06/12/18 07:47 CBC,CMP WBC 18.0 K/mm3 (4.0-10.0) H 06/24/18 05:30 RBC 4.61 M/mm3 (3.60-5.2) 06/24/18 05:30 Hgb 10.9 GM/dL (10.7-15.3) 06/24/18 05:30 Hct 34.8 % (32.4-45.2) 06/24/18 05:30 MCV 75.5 fl (80-96) L 06/24/18 05:30 MCH 23.7 pg (25.7-33.7) L 06/24/18 05:30 MCHC 31.5 g/dl (32.0-36.0) L 06/24/18 05:30 RDW 30.1 % (11.6-15.6) H 06/24/18 05:30 Plt Count 311 K/MM3 (134-434) D 06/24/18 05:30 MPV 9.2 fl (7.5-11.1) 06/24/18 05:30 Absolute Neuts (auto) 16.6 # 06/24/18 05:30 Total Counted 100 06/12/18 07:25 Neutrophils % 92.0 % (42.8-82.8) H 06/24/18 05:30 Neutrophils % (Manual) 70.0 % (42.8-82.8) 06/24/18 05:30 Band Neutrophils % 18.0 % 06/24/18 05:30 Lymphocytes % 2.2 % (8-40) L D 06/24/18 05:30 Lymphocytes % (Manual) 3.0 % (8-40) L D 06/24/18 05:30 Monocytes % 5.7 % (3.8-10.2) 06/24/18 05:30 Monocytes % (Manual) 7 % (3.8-10.2) 06/24/18 05:30 Eosinophils % 0.0 % (0-4.5) 06/24/18 05:30 Eosinophils % (Manual) 3.0 % (0-4.5) 06/16/18 07:15 Basophils % 0.1 % (0-2.0) 06/24/18 05:30 Nucleated RBC % 0 % (0-0) 06/24/18 05:30 Metamyelocytes 2 % (0-2) 06/24/18 05:30 Hypochromia 3+ 06/18/18 08:00 Platelet Estimate Adequate 06/24/18 05:30 Platelet Comment No clumping noted 06/24/18 05:30 Anisocytosis 3+ 06/18/18 08:00 Microcytosis 1+ 06/18/18 08:00 Tear Drop Cells 1+ 06/18/18 08:00 Ovalocytes 1+ 06/18/18 08:00 Rouleaux 1+ 06/12/18 07:25 Retic Count 1.21 % (0.5-1.5) 06/12/18 07:47 Sodium 129 mmol/L (136-145) L 06/24/18 05:30 Potassium 3.9 mmol/L (3.5-5.1) 06/24/18 05:30 Chloride 94 mmol/L (98-107) L 06/24/18 05:30 Carbon Dioxide 26 mmol/L (21-32) 06/24/18 05:30 Anion Gap 9 (8-16) 06/24/18 05:30 BUN 15 mg/dL (7-18) 06/24/18 05:30 Creatinine 0.6 mg/dL (0.55-1.02) 06/24/18 05:30 Creat Clearance w eGFR > 60 (>60) 06/24/18 05:30 POC Glucometer 231.55773 UNITS (80-120) 06/24/18 05:34 Random Glucose 196 mg/dL (74-106) H 06/24/18 05:30 Lactic Acid 1.9 mmol/L (0.0-2.0) 06/14/18 08:30 Calcium 7.2 mg/dL (8.5-10.1) L 06/24/18 05:30 Phosphorus 3.4 mg/dL (2.5-4.9) 06/23/18 05:30 Magnesium 1.9 mg/dL (1.8-2.4) 06/23/18 05:30 Iron 14 ug/dL (27-139) L 06/13/18 07:37 TIBC 366 ug/dL (250-450) 06/12/18 07:37 Iron Saturation 4 % (15-55) L 06/12/18 07:37 Total Bilirubin 0.9 mg/dL (0.2-1.0) 06/24/18 05:30 AST 24 U/L (15-37) 06/24/18 05:30 ALT 18 U/L (12-78) 06/24/18 05:30 Alkaline Phosphatase 77 U/L (45-117) 06/24/18 05:30 Troponin I < 0.02 ng/ml (0.00-0.05) 06/12/18 07:47 B-Natriuretic Peptide 291.53 pg/ml (5-450) 06/12/18 07:47 Total Protein 4.3 g/dl (6.4-8.2) L 06/24/18 05:30 Albumin 1.5 g/dl (3.4-5.0) L 06/24/18 05:30 TSH 44.30 uIU/ml (0.358-3.74) H 06/12/18 07:47 Free T4 1.18 ng/dl (0.76-1.46) 06/17/18 10:45 Microbiology 06/22/18 Unknown Peritoneal Fluid Gram Stain - Final 06/22/18 Unknown Peritoneal Fluid Body Fluid Culture - Preliminary Group D Strep Or Entero Coccus Escherichia Coli 06/23/18 09:28 Blood - Peripheral Venous Blood Culture - Preliminary NO GROWTH OBTAINED AFTER 24 HOURS, INCUBATION TO CONTINUE FOR 4 DAYS. 06/23/18 09:35 Blood - Peripheral Venous Blood Culture - Preliminary NO GROWTH OBTAINED AFTER 24 HOURS, INCUBATION TO CONTINUE FOR 4 DAYS. 06/16/18 15:00 Pleural Fluid AFB Smear Concentration - Final 06/16/18 15:00 Pleural Fluid Mycobacterial Culture - Preliminary 06/16/18 15:00 Pleural Fluid Gram Stain - Final 06/16/18 15:00 Pleural Fluid Body Fluid Culture - Final NO GROWTH OF AEROBIC ORGANISMS AFTER 48 HOURS INCUBATION 06/16/18 15:00 Pleural Fluid Anaerobic Culture - Final NO ANAEROBES WERE ISOLATED 06/14/18 08:30 Blood - Peripheral Venous Blood Culture - Final NO GROWTH AFTER 5 DAYS INCUBATION 06/14/18 08:30 Blood - Peripheral Venous Blood Culture - Final NO GROWTH AFTER 5 DAYS INCUBATION 06/16/18 10:00 Sputum - Expectorated Gram Stain - Final 06/16/18 10:00 Sputum - Expectorated Sputum Culture - Final NORMAL RESPIRATORY EFRAIN 06/16/18 15:00 Pleural Fluid JACOB Preparation - Preliminary 06/16/18 15:00 Pleural Fluid Fungal Culture - Preliminary 06/14/18 10:30 Urine - Urine Atwood Urine Culture - Final Escherichia Coli 06/14/18 17:14 Urine For Antigen Detection Legionella Antigen - Final 06/14/18 17:14 Urine For Antigen Detection Streptococcus pneumoniae Antigen (M - Final Problem List - Problems (1) Status post Sam procedure Assessment/Plan: POD#2 s/p Lopez's procedure after colonic perforation with significant fecal peritonitis. sepsis and MOSF in critical condition. Management per ICU team IVF resuscitation Strict I&Os IV antibiotics Trend labs and replete electrolytes Ween from vasopressor as hemodynamics allow Continue RLQ pelvic drain to suction Continue NGT to LCWS Local wound care - Abdominal wound daily or when soiled Dressin" iodoform packing, 4X4 gauze sponges and tape Measurement: upper midline [id number] and lower midline [id number] Optimize nutrition RONAL - reccomend PPN or TPN GI and DVT prophylaxsis Resume anticoagulation as needed will follow This patient is critically ill. Time spent reviewing chart, examining patient, talking with providers and/or family and documentation is 45 minutes Code(s): Z93.3 - COLOSTOMY STATUS (2) Acute on chronic diastolic heart failure Code(s): I50.33 - ACUTE ON CHRONIC DIASTOLIC (CONGESTIVE) HEART FAILURE (3) Acute on chronic respiratory failure with hypoxia and hypercapnia Code(s): J96.21 - ACUTE AND CHRONIC RESPIRATORY FAILURE WITH HYPOXIA; J96.22 - ACUTE AND CHRONIC RESPIRATORY FAILURE WITH HYPERCAPNIA (4) Atrial fibrillation Code(s): I48.91 - UNSPECIFIED ATRIAL FIBRILLATION Qualifiers: Atrial fibrillation type: persistent Qualified Code(s): I48.1 - Persistent atrial fibrillation (5) Hypothyroidism Code(s): E03.9 - HYPOTHYROIDISM, UNSPECIFIED Qualifiers: Hypothyroidism type: unspecified Qualified Code(s): E03.9 - Hypothyroidism , unspecified (6) Perforation of colon as colonoscopy complication Code(s): K63.1 - PERFORATION OF INTESTINE (NONTRAUMATIC); K91.71 - ACCIDENTAL PNCTR & LAC OF A DGSTV SYS ORG DUR DGSTV SYS PROC (7) Pulmonary hypertension Code(s): I27.20 - PULMONARY HYPERTENSION, UNSPECIFIED
[2018-06-24 11:17] LABS: PLATELET ESTIMATE ADEQUATE
[2018-06-24] MEDS: SODIUM CHLORIDE 1,000 ML IV SCH (12:17)
--- NOTE | 2018-06-24 13:37 | PN ---
Teaching Attending Note Name of Resident: Alfredo Rodriguez ATTENDING PHYSICIAN STATEMENT I saw and evaluated the patient. I reviewed the resident's note and discussed the case with the resident. I agree with the resident's findings and plan as documented. SUBJECTIVE: Pt seen and examined in the ICU. Remains intubated, sedated on levophed and vasopressin gtts. Off phenylephrine gtt. OBJECTIVE: Vital Signs Period Temp Pulse Resp BP Sys/De La O Pulse Ox Last 24 Hr 98.6 F-101 F 95-112 11-25 96-145/49-81 94-98 Intake & Output 06/21/18 06/22/18 06/23/18 06/24/18 23:59 23:59 23:59 23:59 Intake Total 1070 5650 5687 1232.9 Output Total 900 1530 550 Balance 1070 4750 4157 682.9 Weight 61.587 kg 63.14 kg 68.209 kg 70.335 kg Gen: intubated, sedated Heart: tachycardic, irregular Lung: scattered rhonchi Abd: soft, +ostomy pink, stool drainage Ext: no edema CBC, BMP 06/24/18 05:30 06/24/18 05:30 Active Medications Albuterol/Ipratropium (Duoneb -) 1 amp NEB Q6H PRN PRN Reason: SHORTNESS OF BREATH Chlorhexidine Gluconate (Hibiclens For Decolonization -) 1 applic TP HS REED Last Admin: 06/23/18 21:11 Dose: 1 applic Chlorhexidine Gluconate (Peridex -) 15 ml MM BID REED Last Admin: 06/24/18 09:30 Dose: 15 ml Heparin Sodium (Porcine) (Heparin -) 5,000 unit SQ BID REED Last Admin: 06/24/18 09:28 Dose: 5,000 unit Hydrocortisone Sodium Succinate (Solu-Cortef -) 50 mg IVPB Q6H REED Last Admin: 06/24/18 12:19 Dose: 50 mg Metronidazole (Flagyl 500mg Premixed Ivpb -) 500 mg in 100 mls @ 100 mls/hr IVPB Q6H-IV REED Last Admin: 06/24/18 09:29 Dose: 100 mls/hr Propofol (Diprivan -) 1,000,000 mcg in 100 mls @ 1.894 mls/hr IVPB TITR [facility]; Protocol Last Admin: 06/23/18 18:32 Dose: 15 mcg/kg/min, 5.683 mls/hr Fentanyl 500 mcg/ Dextrose 100 mls @ 5 mls/hr IVPB TITR [facility]; Protocol Last Admin: 06/24/18 10:11 Dose: 5 mls/hr Piperacillin Sod/Tazobactam (Sod 3.375 gm/ Dextrose) 50 mls @ 100 mls/hr IVPB Q8H-IV [facility]; Protocol Last Admin: 06/24/18 09:28 Dose: 100 mls/hr Norepinephrine Bitartrate 8, (000 mcg/ Dextrose) 500 mls @ 18.75 mls/hr IV TITR [facility]; Protocol Last Titration: 06/24/18 03:39 Dose: 15 mcg/min, 56.25 mls/hr Vasopressin 50 units/ Sodium (Chloride) 100 mls @ 4.8 mls/hr IVPB TITR [facility]; Protocol Last Admin: 06/23/18 12:38 Dose: 2.4 units/hr, 4.8 mls/hr Sodium Chloride (Normal Saline -) 1,000 mls @ 83 mls/hr IV ASDIR [facility] Last Admin: 06/24/18 12:17 Dose: 83 mls/hr Insulin Aspart (Novolog Vial Sliding Scale -) 1 vial SQ ACHS [facility]; Protocol Last Admin: 06/24/18 12:17 Dose: 6 units Levothyroxine Sodium (Synthroid Injection -) 44 mcg IVPUSH 0700 [facility] Last Admin: 06/24/18 06:04 Dose: 44 mcg Metoprolol Tartrate (Lopressor Injection -) 5 mg IVPUSH Q4H-IV [facility] Last Admin: 06/24/18 09:30 Dose: Not Given Morphine Sulfate (Morphine Sulfate) 2 mg IVPUSH Q6H PRN PRN Reason: pain 6-10 Mupirocin (Bactroban Ointment (For Decolonization) -) 1 applic NS BID [facility] Stop: 06/27/18 21:59 Last Admin: 06/24/18 09:29 Dose: 1 applic Ondansetron HCl (Zofran Injection) 4 mg IVPUSH Q6H PRN PRN Reason: NAUSEA Pantoprazole Sodium (Protonix Iv) 40 mg IVPUSH DAILY [facility] Last Admin: 06/24/18 09:28 Dose: 40 mg ASSESSMENT AND PLAN: Sigmoid Colon Rupture Fecal Peritonitis Septic Shock Acute Hypoxic and Hypercapneic Respiratory Failure Acute on Chronic Diastolic Heart Failure Pulmonary HTN CAD Atrial Fibrillation with RVR Hyponatremia Hypothyroidism UTI - continue antibiotics - f/u peritoneal cultures - IVF to keep CVP 8-12 - pressor support to maintain MAP >65 - continue stress dose steroids - inhaled bronchodilators - rate control - would start anticoagulation for atrial fibrillation - taper FiO2 to keep Spo2 >90% - not a candidate for weaning at this time given hemodynamic instability - NPO, monitor ostomy output - DVT/GI prophylaxis - continue ICU monitoring critical care time spent in reviewing chart, evaluating patient and formulating plan 35 min
[2018-06-24] MEDS ORDERED: NOREPINEPHRINE BITARTRATE 8,000 MCG in SODIUM CHLORIDE 0.45% 992 ML IV SCH (14:15)
--- NOTE | 2018-06-24 15:37 | PN ---
Physical Exam: SUBJECTIVE: Patient seen and examined in ICU. Off jackie. Sedated and vented. BP support, on levo and vasopressin. OBJECTIVE: Vital Signs Period Temp Pulse Resp BP Sys/De La O Pulse Ox Last 24 Hr 98.6 F-101 F 95-112 11-25 96-145/49-68 94-98 PE Neuro: sedated, however opens eyes HEENT: R triple lumen cdi, NGT green drainage Pulm: diminished + MV CV: s1 s2 tachycardia, +murmur irregular rate/rhythm Abd: lower abdominal incision, open, packed, RLQ drain to suction, LLQ colostomy + stool, distention, hypoactive bowel sounds Ext: +1 le edema, ue hand edema Laboratory Results - last 24 hr 06/24/18 06/24/18 06/24/18 05:30 05:30 05:30 WBC 18.0 H RBC 4.61 Hgb 10.9 Hct 34.8 MCV 75.5 L MCH 23.7 L MCHC 31.5 L RDW 30.1 H Plt Count 311 D MPV 9.2 Absolute Neuts (auto) 16.6 Neutrophils % 92.0 H Neutrophils % (Manual) 70.0 Band Neutrophils % 18.0 Lymphocytes % 2.2 L D Lymphocytes % (Manual) 3.0 L D Monocytes % 5.7 Monocytes % (Manual) 7 Eosinophils % 0.0 Basophils % 0.1 Nucleated RBC % 0 Metamyelocytes 2 Platelet Estimate Adequate Platelet Comment No clumping noted Puncture Site ABG pH ABG pCO2 at Pt Temp ABG pO2 at Pt Temp ABG HCO3 ABG O2 Sat (Measured) ABG O2 Content ABG Base Excess Shaheen Test O2 Delivery Device Oxygen Flow Rate Vent Mode Vent Rate Mechanical Rate PEEP Pressure Support Vent Sodium 129 L Potassium 3.9 Chloride 94 L Carbon Dioxide 26 Anion Gap 9 BUN 15 Creatinine 0.6 Creat Clearance w eGFR > 60 POC Glucometer Random Glucose 196 H Calcium 7.2 L Phosphorus Cancelled Magnesium Cancelled Total Bilirubin 0.9 AST 24 ALT 18 Alkaline Phosphatase 77 Total Protein 4.3 L Albumin 1.5 L 06/24/18 06/24/18 06/24/18 05:34 07:25 12:09 WBC RBC Hgb Hct MCV MCH MCHC RDW Plt Count MPV Absolute Neuts (auto) Neutrophils % Neutrophils % (Manual) Band Neutrophils % Lymphocytes % Lymphocytes % (Manual) Monocytes % Monocytes % (Manual) Eosinophils % Basophils % Nucleated RBC % Metamyelocytes Platelet Estimate Platelet Comment Puncture Site Right radial ABG pH 7.39 ABG pCO2 at Pt Temp 38.9 D ABG pO2 at Pt Temp 111.0 H ABG HCO3 23.2 ABG O2 Sat (Measured) 99.0 H ABG O2 Content 15.3 ABG Base Excess -0.9 Shaheen Test Positive O2 Delivery Device Mech vent Oxygen Flow Rate 60% Vent Mode A/c Vent Rate 10 Mechanical Rate Yes PEEP 5.0 Pressure Support Vent 400 Sodium Potassium Chloride Carbon Dioxide Anion Gap BUN Creatinine Creat Clearance w eGFR POC Glucometer 231.15448 241.37248 Random Glucose Calcium Phosphorus Magnesium Total Bilirubin AST ALT Alkaline Phosphatase Total Protein Albumin Active Medications Generic Name Dose Route Start Last Admin Trade Name Freq PRN Reason Stop Dose Admin Albuterol/Ipratropium 1 amp 06/22/18 17:53 Duoneb - NEB Q6H PRN SHORTNESS OF BREATH Chlorhexidine Gluconate 1 applic 06/22/18 22:00 06/23/18 21:11 Hibiclens For Decolonization - TP 1 applic HS REED Administration Chlorhexidine Gluconate 15 ml 06/23/18 10:00 06/24/18 09:30 Peridex - MM 15 ml BID REED Administration Heparin Sodium (Porcine) 5,000 unit 06/22/18 22:00 06/24/18 09:28 Heparin - SQ 5,000 unit BID REED Administration Hydrocortisone Sodium Succinate 50 mg 06/23/18 12:00 06/24/18 12:19 Solu-Cortef - IVPB 50 mg Q6H REED Administration Metronidazole 500 mg in 100 mls @ 100 mls/hr 06/22/18 21:00 06/24/18 15:08 Flagyl 500mg Premixed Ivpb - IVPB 100 mls/hr Q6H-IV REED Administration Propofol 1,000,000 mcg in 100 mls @ 1.894 mls/hr 06/22/18 18:15 06/23/18 18: 32 Diprivan - IVPB 15 mcg/kg/min TITR REED 5.683 mls/hr Administration Protocol 5 MCG/KG/MIN Fentanyl 500 mcg/ Dextrose 100 mls @ 5 mls/hr 06/22/18 18:15 06/24/18 10:11 IVPB 5 mls/hr TITR REED Administration Protocol 25 MCG/HR Piperacillin Sod/Tazobactam 50 mls @ 100 mls/hr 06/23/18 02:00 06/24/18 09:28 Sod 3.375 gm/ Dextrose IVPB 100 mls/hr Q8H-IV REED Administration Protocol Vasopressin 50 units/ Sodium 100 mls @ 4.8 mls/hr 06/23/18 12:00 06/23/18 12: 38 Chloride IVPB 2.4 units/hr TITR REED 4.8 mls/hr Administration Protocol 2.4 UNITS/HR Sodium Chloride 1,000 mls @ 83 mls/hr 06/24/18 11:15 06/24/18 12:17 Normal Saline - IV 83 mls/hr ASDIR REED Administration Norepinephrine Bitartrate 8, 1,000 mls @ 37.5 mls/hr 06/24/18 14:15 000 mcg/ Sodium Chloride IV TITR REED Protocol 5 MCG/MIN Insulin Aspart 1 vial 06/22/18 22:00 06/24/18 12:17 Novolog Vial Sliding Scale - SQ 6 units ACHS REED Administration Protocol Levothyroxine Sodium 44 mcg 06/23/18 07:00 06/24/18 06:04 Synthroid Injection - IVPUSH 44 mcg 0700 REED Administration Metoprolol Tartrate 5 mg 06/22/18 18:00 06/24/18 14:58 Lopressor Injection - IVPUSH Not Given Q4H-IV REED Morphine Sulfate 2 mg 06/22/18 17:53 Morphine Sulfate IVPUSH Q6H PRN pain 6-10 Mupirocin 1 applic 06/22/18 22:00 06/24/18 09:29 Bactroban Ointment (For Decolonization) - NS 06/27/18 21:59 1 applic BID REED Administration Ondansetron HCl 4 mg 06/22/18 17:53 Zofran Injection IVPUSH Q6H PRN NAUSEA Pantoprazole Sodium 40 mg 06/23/18 10:00 06/24/18 09:28 Protonix Iv IVPUSH 40 mg DAILY REED Administration Microbiology 06/22/18 Unknown Gram Stain - Final Peritoneal Fluid Body Fluid Culture - Final Enterococcus Raffinosus Escherichia Coli Yeast Like Organism Anaerobic Culture - Final NO ANAEROBES WERE ISOLATED 06/23/18 09:28 Blood Culture - Preliminary Blood - Peripheral Venous NO GROWTH OBTAINED AFTER 24 HOURS, INCUBATION TO CONTINUE FOR 4 DAYS. 06/23/18 09:35 Blood Culture - Preliminary Blood - Peripheral Venous NO GROWTH OBTAINED AFTER 24 HOURS, INCUBATION TO CONTINUE FOR 4 DAYS. Assessment: 87 year old female with pmhx diastolic CHF, A fib, hypothyroid, CVA , breast CA, iron deficiency, DM II [facility] leth[facility]y and blood transfusion. Referred for colonoscopy, post procedure distention concern for perforation, transferred to [facility] for ex lap and surgical resection of rectosigmoid colon with end colostomy. Plan: 1. Septic shock, sepsis d/t colonic perforation s/p colonoscopy 06/22 - s/p Hartmans procedure 06/22 - Wean off pressors per hemodynamics - Continue vanco, zosyn - Follow cx - Daily dressing changes 2. A fib - Lopressor 5mg ivp prn - Not on AC - Hold PO meds: cardizem 180mg qday, tenormin 50mg po qday 3. Acute on chronic diastolic CHF - Hold po lasix d/t shock 4. Hypothyroidism - Synthroid 44mcg IVBP 5. Acute resp failure - Continue weaning per protocol - PPI 6. DVT ppx - Heparin sq 7. Electrolytes - Hyponatremia resolved - Hypocalcemia: corrected 9.2 Visit type - Emergency Visit Emergency Visit: Yes ED Registration Date: 06/12/18 Care time: The patient presented to the Emergency Department on the above date and was hospitalized for further evaluation of their emergent condition. - New Patient This patient is new to me today: No - Critical Care Critical Care patient: No
[2018-06-24 16:03] LABS: MAGNESIUM 1.7 mg/dL (1.8-2.4); PHOSPHOROUS 2.4 mg/dL (2.5-4.9)
--- NOTE | 2018-06-24 16:49 | PN ---
Physical Exam: SUBJECTIVE: Patient seen and examined this am in icu. Remains intubated and sedated. Spoke with son, Asif and daughter in law this afternoon. OBJECTIVE: Vital Signs Period Temp Pulse Resp BP Sys/De La O Pulse Ox Last 24 Hr 98.6 F-101 F 95-112 11-25 96-145/49-68 94-98 General: Intubated and sedated HEAD- NC/AT, NG Tube in place. LUNGS- Rhonchi b/l HEART- Irregular, tachycardia ABD- Soft, Colostomy in place Extremities- Feet cool to touch Skin: pallor, dry Laboratory Results - last 24 hr 06/23/18 06/23/18 06/23/18 12:06 17:12 21:16 WBC RBC Hgb Hct MCV MCH MCHC RDW Plt Count MPV Absolute Neuts (auto) Neutrophils % Neutrophils % (Manual) Band Neutrophils % Lymphocytes % Lymphocytes % (Manual) Monocytes % Monocytes % (Manual) Eosinophils % Basophils % Nucleated RBC % Metamyelocytes Platelet Estimate Platelet Comment Puncture Site ABG pH ABG pCO2 at Pt Temp ABG pO2 at Pt Temp ABG HCO3 ABG O2 Sat (Measured) ABG O2 Content ABG Base Excess Shaheen Test O2 Delivery Device Oxygen Flow Rate Vent Mode Vent Rate Mechanical Rate PEEP Pressure Support Vent Sodium Potassium Chloride Carbon Dioxide Anion Gap BUN Creatinine Creat Clearance w eGFR POC Glucometer [phone] Random Glucose Calcium Phosphorus Magnesium Total Bilirubin AST ALT Alkaline Phosphatase Total Protein Albumin 06/24/18 06/24/18 06/24/18 05:30 05:30 05:30 WBC 18.0 H RBC 4.61 Hgb 10.9 Hct 34.8 MCV 75.5 L MCH 23.7 L MCHC 31.5 L RDW 30.1 H Plt Count 311 D MPV 9.2 Absolute Neuts (auto) 16.6 Neutrophils % 92.0 H Neutrophils % (Manual) 70.0 Band Neutrophils % 18.0 Lymphocytes % 2.2 L D Lymphocytes % (Manual) 3.0 L D Monocytes % 5.7 Monocytes % (Manual) 7 Eosinophils % 0.0 Basophils % 0.1 Nucleated RBC % 0 Metamyelocytes 2 Platelet Estimate Adequate Platelet Comment No clumping noted Puncture Site ABG pH ABG pCO2 at Pt Temp ABG pO2 at Pt Temp ABG HCO3 ABG O2 Sat (Measured) ABG O2 Content ABG Base Excess Shaheen Test O2 Delivery Device Oxygen Flow Rate Vent Mode Vent Rate Mechanical Rate PEEP Pressure Support Vent Sodium 129 L Potassium 3.9 Chloride 94 L Carbon Dioxide 26 Anion Gap 9 BUN 15 Creatinine 0.6 Creat Clearance w eGFR > 60 POC Glucometer Random Glucose 196 H Calcium 7.2 L Phosphorus Cancelled Magnesium Cancelled Total Bilirubin 0.9 AST 24 ALT 18 Alkaline Phosphatase 77 Total Protein 4.3 L Albumin 1.5 L 06/24/18 06/24/18 06/24/18 05:34 07:25 12:09 WBC RBC Hgb Hct MCV MCH MCHC RDW Plt Count MPV Absolute Neuts (auto) Neutrophils % Neutrophils % (Manual) Band Neutrophils % Lymphocytes % Lymphocytes % (Manual) Monocytes % Monocytes % (Manual) Eosinophils % Basophils % Nucleated RBC % Metamyelocytes Platelet Estimate Platelet Comment Puncture Site Right radial ABG pH 7.39 ABG pCO2 at Pt Temp 38.9 D ABG pO2 at Pt Temp 111.0 H ABG HCO3 23.2 ABG O2 Sat (Measured) 99.0 H ABG O2 Content 15.3 ABG Base Excess -0.9 Shaheen Test Positive O2 Delivery Device Mech vent Oxygen Flow Rate 60% Vent Mode A/c Vent Rate 10 Mechanical Rate Yes PEEP 5.0 Pressure Support Vent 400 Sodium Potassium Chloride Carbon Dioxide Anion Gap BUN Creatinine Creat Clearance w eGFR POC Glucometer [phone] Random Glucose Calcium Phosphorus Magnesium Total Bilirubin AST ALT Alkaline Phosphatase Total Protein Albumin Active Medications Generic Name Dose Route Start Last Admin Trade Name Freq PRN Reason Stop Dose Admin Albuterol/Ipratropium 1 amp 06/22/18 17:53 Duoneb - NEB Q6H PRN SHORTNESS OF BREATH Chlorhexidine Gluconate 1 applic 06/22/18 22:00 06/23/18 21:11 Hibiclens For Decolonization - TP 1 applic HS REED Administration Chlorhexidine Gluconate 15 ml 06/23/18 10:00 06/24/18 09:30 Peridex - MM 15 ml BID REED Administration Heparin Sodium (Porcine) 5,000 unit 06/22/18 22:00 06/24/18 09:28 Heparin - SQ 5,000 unit BID REED Administration Hydrocortisone Sodium Succinate 50 mg 06/23/18 12:00 06/24/18 12:19 Solu-Cortef - IVPB 50 mg Q6H REED Administration Metronidazole 500 mg in 100 mls @ 100 mls/hr 06/22/18 21:00 06/24/18 09:29 Flagyl 500mg Premixed Ivpb - IVPB 100 mls/hr Q6H-IV REED Administration Propofol 1,000,000 mcg in 100 mls @ 1.894 mls/hr 06/22/18 18:15 06/23/18 18: 32 Diprivan - IVPB 15 mcg/kg/min TITR REED 5.683 mls/hr Administration Protocol 5 MCG/KG/MIN Fentanyl 500 mcg/ Dextrose 100 mls @ 5 mls/hr 06/22/18 18:15 06/24/18 10:11 IVPB 5 mls/hr TITR REED Administration Protocol 25 MCG/HR Piperacillin Sod/Tazobactam 50 mls @ 100 mls/hr 06/23/18 02:00 06/24/18 09:28 Sod 3.375 gm/ Dextrose IVPB 100 mls/hr Q8H-IV REED Administration Protocol Vasopressin 50 units/ Sodium 100 mls @ 4.8 mls/hr 06/23/18 12:00 06/23/18 12: 38 Chloride IVPB 2.4 units/hr TITR REED 4.8 mls/hr Administration Protocol 2.4 UNITS/HR Sodium Chloride 1,000 mls @ 83 mls/hr 06/24/18 11:15 06/24/18 12:17 Normal Saline - IV 83 mls/hr ASDIR REED Administration Norepinephrine Bitartrate 8, 1,000 mls @ 37.5 mls/hr 06/24/18 14:15 000 mcg/ Sodium Chloride IV TITR REED Protocol 5 MCG/MIN Insulin Aspart 1 vial 06/22/18 22:00 06/24/18 12:17 Novolog Vial Sliding Scale - SQ 6 units ACHS REED Administration Protocol Levothyroxine Sodium 44 mcg 06/23/18 07:00 06/24/18 06:04 Synthroid Injection - IVPUSH 44 mcg 0700 REED Administration Metoprolol Tartrate 5 mg 06/22/18 18:00 06/24/18 09:30 Lopressor Injection - IVPUSH Not Given Q4H-IV REED Morphine Sulfate 2 mg 06/22/18 17:53 Morphine Sulfate IVPUSH Q6H PRN pain 6-10 Mupirocin 1 applic 06/22/18 22:00 06/24/18 09:29 Bactroban Ointment (For Decolonization) - NS 06/27/18 21:59 1 applic BID REED Administration Ondansetron HCl 4 mg 06/22/18 17:53 Zofran Injection IVPUSH Q6H PRN NAUSEA Pantoprazole Sodium 40 mg 06/23/18 10:00 06/24/18 09:28 Protonix Iv IVPUSH 40 mg DAILY REED Administration ASSESSMENT/PLAN: Ms. Singh is an 87 y/o lady with a past medical history of A. fib (no AC), CVA , breast cancer, hypothyroidism, iron deficiency anemia, and DM. Pt has a h/o occult GI bleeding requiring blood transfusions. Pt has had a recent development of severe microcytic anemia and heme + stool. Has been on aspirin chronically for A fib. Has not had any specific GI complaints and has refused GI workups in past. Pt was referred to [facility] for a colonoscopy to r/o any GI bleed. Pt developed a perforation of her rectosigmoid colon s/p colonoscopy. Dr Lora, General Surgeon, was notified and pt was transfered from [facility] to [facility]. An exploratory laparotomy was performed where surgical resection of the rectosigmoid colon with closure of the anorectal stump and formation of an end colostomy Neuro: -Intubated and Sedated. Propofol and Fentanyl -Vasopressin -2.4 mg Started today -Solu-cortef -50 mg IVPB Q6H -Phenylephrine -10 mcg/min- D/C'ed -Norepinephrine Bitartrate 8- 37.5 mls/hr G.I: -Colonic perforation, fecal peritonitis -S/P Lopez procedure POD #2 -Continue empiric zosyn/ flagyl per Dr Saini, ID -ICU monitoring PULM: 1 AMP NEB Q6H Solu-Cortef 50 mg IVPB AFIB: Lopressor Injection 5 mg IVPUSH Q4H Home Meds- ASA 325, Cardizem 180 PO Daily, Tenormin 50 MG PO Daily. Per Cardiology Dr Carrizales: May use amio or digoxin as needed for rate-control while hypotensive FEN Normal Saline 1,000 mls @ 83 mls/hr Monitor Electrolytes NPO DVT ppx: 5,000 unit SQ BID Dispo- continue to monitor in icu. Visit type - Emergency Visit Emergency Visit: Yes ED Registration Date: 06/12/18 Care time: The patient presented to the Emergency Department on the above date and was hospitalized for further evaluation of their emergent condition. - New Patient This patient is new to me today: No - Critical Care Critical Care patient: Yes Total Critical Care Time (in minutes): 36 Critical Care Statement: The care of this patient involved high complexity decision making to prevent further life threatening deterioration of the patient 's condition and/or to evaluate & treat vital organ system(s) failure or risk of failure.
[2018-06-24] MEDS: VASOPRESSIN 50 UNITS in SODIUM CHLORIDE 97.5 ML IVPB SCH (17:19)
[2018-06-24] MEDS: PROPOFOL 1,000,000 MCG/100 ML VIAL IVPB SCH (17:20)
[2018-06-24] MEDS: CHLORHEXIDINE GLUCONATE 4% CLEANSER FOR DECOLONIZATION TP SCH (21:16)
[2018-06-25] MEDS: METOPROLOL TARTRATE 5 MG/5 ML VIAL IVPUSH SCH ×6 (02:11→21:48)
[2018-06-25] MEDS: PIPERACILLIN/TAZOB 3.375 GM 3.375 GM in DEXTROSE 5%-WATER - 50 ML IVPB SCH ×3 (02:45→17:16)
[2018-06-25 02:46] LABS: ANION GAP 5 (8-16); BLOOD UREA NITROGEN 18 mg/dL (7-18); CALCIUM 7.1 mg/dL (8.5-10.1); CHLORIDE 96 mmol/L (98-107); CO2 28 mmol/L (21-32); CREATININE 0.5 mg/dL (0.55-1.02); GLUCOSE,RANDOM 99 mg/dL (74-106); POTASSIUM 3.5 mmol/L (3.5-5.1); SODIUM 129 mmol/L (136-145)
[2018-06-25] MEDS ORDERED: fentaNYL CITRATE 250 MCG/5 ML VIAL ONE ×2 (03:00→23:17)
[2018-06-25] MEDS ORDERED: PIPERACILLIN/TAZOBACTAM 3.375 GM VIAL IVPB ONE ×3 (03:00→17:04)
[2018-06-25] MEDS ORDERED: VASOPRESSIN 20 UNITS/ML VIAL IV ONE (03:01)
[2018-06-25] MEDS ORDERED: DEXTROSE 5%-WATER - 50 ML IVPB ONE ×3 (03:01→17:04)
[2018-06-25] MEDS: VASOPRESSIN 50 UNITS in SODIUM CHLORIDE 97.5 ML IVPB SCH (03:40)
[2018-06-25] MEDS ORDERED: PT OWN MED DRAWER 7, Y5N ONE (05:42)
[2018-06-25] MEDS: HYDROCORTISONE SOD SUCCINATE 100 MG/2 ML VIAL IVPB SCH ×4 (05:49→23:13)
[2018-06-25] MEDS: INSULIN SLIDING SCALE (NOVOLOG) 1 VIAL SQ SCH ×4 (06:02→21:54)
[2018-06-25] MEDS: LEVOTHYROXINE SODIUM 100 MCG VIAL IVPUSH SCH (06:03)
[2018-06-25] MEDS: SODIUM CHLORIDE 1,000 ML IV SCH ×2 (06:04→13:54)
[2018-06-25 06:06] LABS: BASO % 0.1 % (0-2.0); HEMATOCRIT 32.3 % (32.4-45.2); HEMOGLOBIN 10.3 GM/dL (10.7-15.3); LYMPH % 1.3 % (8-40); MCH 23.9 pg (25.7-33.7); MCHC 31.9 g/dl (32.0-36.0); MEAN CELL VOLUME 74.8 fl (80-96); MEAN PLT VOLUME 9.6 fl (7.5-11.1); MONO % 4.8 % (3.8-10.2); NEUT % 93.8 % (42.8-82.8); PLATELET COUNT 296 K/MM3 (134-434); RBC 4.32 M/mm3 (3.60-5.2); WHITE BLOOD COUNT 19.2 K/mm3 (4.0-10.0)
[2018-06-25 06:34] LABS: ALBUMIN 1.4 g/dl (3.4-5.0); ANION GAP 7 (8-16); BLOOD UREA NITROGEN 19 mg/dL (7-18); CALCIUM 7.2 mg/dL (8.5-10.1); CHLORIDE 95 mmol/L (98-107); CO2 26 mmol/L (21-32); CREATININE 0.5 mg/dL (0.55-1.02); GLUCOSE,RANDOM 152 mg/dL (74-106); POTASSIUM 3.9 mmol/L (3.5-5.1); SGOT/AST 13 U/L (15-37); SGPT/ALT 15 U/L (12-78); SODIUM 128 mmol/L (136-145)
[2018-06-25 06:36] LABS: ALK PHOS 77 U/L (45-117); BILIRUBIN,TOTAL 0.8 mg/dL (0.2-1.0); TOT PROT 4.2 g/dl (6.4-8.2)
[2018-06-25] MEDS ORDERED: NOREPINEPHRINE BITARTRATE 4 MG/4 ML ML IV ONE ×2 (06:43→23:18)
[2018-06-25] MEDS: NOREPINEPHRINE BITARTRATE 16,000 MCG in SODIUM CHLORIDE 0.45% 984 ML IV SCH (06:50)
--- NOTE | 2018-06-25 08:40 | PN ---
Progress Note (short form) - Note Progress Note: Chief Complaint: Events noted, notes reviewed, remains sedated and intubated, on pressors (Vasopressin, Norepinephrine), atrial fibrillation persists History of Present Illness: Seen and examined in the ICU. Events noted, notes reviewed, remains sedated and intubated, on pressors (Vasopressin, Norepinephrine), atrial fibrillation persists Patient is post recto-sigmoid perforation, post Lopez's procedure with fecal peritonitis, POD#3 Chest CTA: no CT evidence of pulmonary embolism, pulmonary vascular congestion with cardiomegaly, bilateral pleural effusion Echocardiography revealed normal LV size and function, trace pericardial effusion, pleural effusion, mild to moderate MR, severe TR, RVSP 30-40 mmHg - Current Medication List Current Medications: Current Medications Albuterol/Ipratropium (Duoneb -) 1 amp NEB Q6H PRN PRN Reason: SHORTNESS OF BREATH Chlorhexidine Gluconate (Hibiclens For Decolonization -) 1 applic TP HS REED Last Admin: 06/24/18 21:16 Dose: 1 applic Chlorhexidine Gluconate (Peridex -) 15 ml MM BID REED Last Admin: 06/24/18 21:17 Dose: 15 ml Heparin Sodium (Porcine) (Heparin -) 5,000 unit SQ BID REED Last Admin: 06/24/18 21:16 Dose: 5,000 unit Hydrocortisone Sodium Succinate (Solu-Cortef -) 50 mg IVPB Q6H REED Last Admin: 06/25/18 05:49 Dose: 50 mg Metronidazole (Flagyl 500mg Premixed Ivpb -) 500 mg in 100 mls @ 100 mls/hr IVPB Q6H-IV REED Last Admin: 06/25/18 03:11 Dose: 100 mls/hr Propofol (Diprivan -) 1,000,000 mcg in 100 mls @ 1.894 mls/hr IVPB TITR [facility], [facility]; Protocol Last Titration: 06/24/18 19:00 Dose: 10 mcg/kg/min, 3.788 mls/hr Fentanyl 500 mcg/ Dextrose 100 mls @ 5 mls/hr IVPB TITR ER[facility]; Protocol Last Admin: 06/24/18 18:18 Dose: Not Given Piperacillin Sod/Tazobactam (Sod 3.375 gm/ Dextrose) 50 mls @ 100 mls/hr IVPB Q8H-IV REED; Protocol Last Admin: 06/25/18 02:45 Dose: 100 mls/hr Vasopressin 50 units/ Sodium (Chloride) 100 mls @ 4.8 mls/hr IVPB TITR [facility]; Protocol Last Admin: 06/25/18 03:40 Dose: 2.4 units/hr, 4.8 mls/hr Sodium Chloride (Normal Saline -) 1,000 mls @ 83 mls/hr IV ASDIR [facility] Last Admin: 06/25/18 06:04 Dose: 83 mls/hr Norepinephrine Bitartrate 16, (000 mcg/ Sodium Chloride) 1,000 mls @ 18.75 mls/ hr IV TITR [facility]; Protocol Last Admin: 06/25/18 06:50 Dose: 12 mcg/min, 45 mls/hr Insulin Aspart (Novolog Vial Sliding Scale -) 1 vial SQ ACHS [facility]; Protocol Last Admin: 06/25/18 06:02 Dose: 2 units Levothyroxine Sodium (Synthroid Injection -) 44 mcg IVPUSH 0700 [facility] Last Admin: 06/25/18 06:03 Dose: 44 mcg Metoprolol Tartrate (Lopressor Injection -) 5 mg IVPUSH Q4H-IV [facility] Last Admin: 06/25/18 06:03 Dose: Not Given Morphine Sulfate (Morphine Sulfate) 2 mg IVPUSH Q6H PRN PRN Reason: pain 6-10 Mupirocin (Bactroban Ointment (For Decolonization) -) 1 applic NS BID [facility] Stop: 06/27/18 21:59 Last Admin: 06/24/18 21:16 Dose: 1 applic Ondansetron HCl (Zofran Injection) 4 mg IVPUSH Q6H PRN PRN Reason: NAUSEA Pantoprazole Sodium (Protonix Iv) 40 mg IVPUSH DAILY [facility] Last Admin: 06/24/18 09:28 Dose: 40 mg Review of Systems: Unable to obtain - Objective Vital Signs: Last Vital Signs Temp Pulse Resp BP Pulse Ox 98.9 F 102 H 14 104/44 97 06/25/18 06:00 06/25/18 08:00 06/25/18 08:00 06/25/18 08:00 06/24/18 20:22 Intake & Output 06/22/18 06/23/18 06/24/18 06/25/18 23:59 23:59 23:59 23:59 Intake Total 5650 5687 4085.4 1163.6 Output Total 900 1530 1350 750 Balance 4750 4157 2735.4 413.6 Weight 139 lb 3.2 oz 150 lb 6 oz 154 lb 5.177 oz 162 lb 11.218 oz Neck: Supple Negative JVD No Bruit Cardiovascular: S1 S2 Irregularly Irregular Respiratory: Bilateral Scattered Rhonchi Gastrointestinal: Soft Hypoactive Bowel Sounds Ext: No Edema Labs: CBC, BMP 06/25/18 05:30 06/25/18 05:30 INR, PTT INR 1.27 (0.82-1.09) H 06/12/18 07:47 Assessment/Plan ASSESSMENT: 1. Colonic perforation, fecal peritonitis, sepsis POD#3 post Lopez procedure 2. Acute hypercapneic respiratory failure referable to 3. Acute on chronic class II NYHA classification LV failure related to diastolic LV dysfunction 4. CAD angina pectoris 5. Severe TR with pulmonary HTN 6. Pleural effusions post right thoracentesis (transudate) 7. Persistent atrial fibrillation with periods of rapid ventricular response [id number] score of 5, not on A/C as patient has declined in past 8. Hypothyroidism 9. Carotid stenosis 10. Anemia 11. E. Coli UTI 12. Hyponatremia, persistent PLAN: 1. Antibiotics as per the primary team/ID 2. Vent management as per ICU team 3. Titrate pressors to maintain MAP>65 mmHg, attempt to wean off as tolerated 4. B-Blockers to assist with rate control hemodynamics permitting, otherwise consider Amiodarone +/- Digoxin with caution 5. Diuretics/Lasix as needed with caution in view of the above noted Hyponatremia (Hyponatremia correction) 6. Considering the above noted [id number] score of 5 A/C recommended unless it is absolutely contraindicated Condition remains critical Taty Rodriguez MD
[2018-06-25 08:53] LABS: ANISOCYTOSIS 3+; OVALOCYTE 1+; PLATELET ESTIMATE ADEQUATE; TARGET CELLS 2+
[2018-06-25] MEDS: PROPOFOL 1,000,000 MCG/100 ML VIAL IVPB SCH (09:07)
[2018-06-25] MEDS: PANTOPRAZOLE SODIUM 40 MG VIAL IVPUSH SCH (09:08)
[2018-06-25] MEDS: HEPARIN NA (PORCINE) 5,000 UNITS/ML 1ML VIAL SQ SCH ×2 (09:08→21:47)
[2018-06-25] MEDS: MUPIROCIN 2% TOPICAL OINTMENT FOR DECOLONIZATION NS SCH ×2 (09:09→21:48)
--- NOTE | 2018-06-25 09:12 | PN ---
Progress Note, Physician History of Present Illness: Intubated Poorly responsive on ventilator Temps down Afebrile Hypotensive on pressors WBC 19K Operative cultures Enterococcus, E. coli, yeast - Current Medication List Current Medications: Active Medications Albuterol/Ipratropium (Duoneb -) 1 amp NEB Q6H PRN PRN Reason: SHORTNESS OF BREATH Chlorhexidine Gluconate (Hibiclens For Decolonization -) 1 applic TP HS REED Last Admin: 06/24/18 21:16 Dose: 1 applic Chlorhexidine Gluconate (Peridex -) 15 ml MM BID REED Last Admin: 06/24/18 21:17 Dose: 15 ml Heparin Sodium (Porcine) (Heparin -) 5,000 unit SQ BID REED Last Admin: 06/25/18 09:08 Dose: 5,000 unit Hydrocortisone Sodium Succinate (Solu-Cortef -) 50 mg IVPB Q6H REED Last Admin: 06/25/18 05:49 Dose: 50 mg Metronidazole (Flagyl 500mg Premixed Ivpb -) 500 mg in 100 mls @ 100 mls/hr IVPB Q6H-IV REED Last Admin: 06/25/18 08:50 Dose: 100 mls/hr Propofol (Diprivan -) 1,000,000 mcg in 100 mls @ 1.894 mls/hr IVPB TITR [facility]; Protocol Last Admin: 06/25/18 09:07 Dose: 10 mcg/kg/min, 3.788 mls/hr Fentanyl 500 mcg/ Dextrose 100 mls @ 5 mls/hr IVPB TITR [facility]; Protocol Last Admin: 06/24/18 18:18 Dose: Not Given Piperacillin Sod/Tazobactam (Sod 3.375 gm/ Dextrose) 50 mls @ 100 mls/hr IVPB Q8H-IV RE[facility]; Protocol Last Admin: 06/25/18 09:08 Dose: 100 mls/hr Vasopressin 50 units/ Sodium (Chloride) 100 mls @ 4.8 mls/hr IVPB TITR [facility]; Protocol Last Admin: 06/25/18 03:40 Dose: 2.4 units/hr, 4.8 mls/hr Sodium Chloride (Normal Saline -) 1,000 mls @ 83 mls/hr IV ASDIR REED Last Admin: 06/25/18 06:04 Dose: 83 mls/hr Norepinephrine Bitartrate 16, (000 mcg/ Sodium Chloride) 1,000 mls @ 18.75 mls/ hr IV TITR [facility]; Protocol Last Admin: 06/25/18 06:50 Dose: 12 mcg/min, 45 mls/hr Insulin Aspart (Novolog Vial Sliding Scale -) 1 vial SQ ACHS [facility]; Protocol Last Admin: 06/25/18 06:02 Dose: 2 units Levothyroxine Sodium (Synthroid Injection -) 44 mcg IVPUSH 0700 [facility] Last Admin: 06/25/18 06:03 Dose: 44 mcg Metoprolol Tartrate (Lopressor Injection -) 5 mg IVPUSH Q4H-IV [facility] Last Admin: 06/25/18 09:07 Dose: Not Given Morphine Sulfate (Morphine Sulfate) 2 mg IVPUSH Q6H PRN PRN Reason: pain 6-10 Mupirocin (Bactroban Ointment (For Decolonization) -) 1 applic NS BID [facility] Stop: 06/27/18 21:59 Last Admin: 06/25/18 09:09 Dose: 1 applic Ondansetron HCl (Zofran Injection) 4 mg IVPUSH Q6H PRN PRN Reason: NAUSEA Pantoprazole Sodium (Protonix Iv) 40 mg IVPUSH DAILY [facility] Last Admin: 06/25/18 09:08 Dose: 40 mg - Objective Vital Signs: Vital Signs Temperature 98.9 F 06/25/18 06:00 Pulse Rate 102 H 06/25/18 09:07 Respiratory Rate 12 06/25/18 08:35 Blood Pressure 104/44 06/25/18 08:00 O2 Sat by Pulse Oximetry (%) 96 06/25/18 08:35 Constitutional: Yes: No Distress Cardiovascular: Yes: Regular Rate and Rhythm, Tachycardia, S1, S2 Respiratory: Yes: Mechanically Ventilated Gastrointestinal: Yes: Normal Bowel Sounds, Soft, Other (+ midline surgical wound, soft stool in ostomy) Edema: Yes Labs: CBC, BMP 06/25/18 05:30 06/25/18 05:30 INR, PTT INR 1.27 (0.82-1.09) H 06/12/18 07:47 Assessment/Plan POD #3 Lopez procedure Colonic perforation, fecal peritonitis Sepsis/ septic shock secondary to GI source Operative c/s Enterococcus, E coli, Yeast Pulmonary vascular congestion ? pneumonia Continue empiric zosyn/ flagyl Add antifungal therapy ICU monitoring Repeat CT abdomen/ pelvis for persistant leukocytosis R/O abscess Prognosis guarded
[2018-06-25] MEDS ORDERED: CASPOFUNGIN ACETATE 70 MG in SODIUM CHLORIDE 250 ML IVPB ONE (10:30)
--- NOTE | 2018-06-25 11:48 | PN ---
Physical Exam: SUBJECTIVE: Patient seen and examined in ICU. Awake during sedation vacation, moving hands. Off vaso, maintenance fluids started OBJECTIVE: Vital Signs Period Temp Pulse Resp BP Sys/De La O Pulse Ox Last 24 Hr 98.2 F-98.9 F 96-114 10-18 88-121/41-70 92-98 PE Neuro: sedated, however opens eyes HEENT: R triple lumen cdi, NGT green drainage Pulm: diminished + MV CV: s1 s2 tachycardia, +murmur irregular rate/rhythm Abd: lower abdominal incision, open, packed, RLQ drain to suction, LLQ colostomy + mild stool, distention, hypoactive bowel sounds Ext: +1 le edema, b/l upper ext edema Laboratory Results - last 24 hr 06/24/18 06/24/18 06/24/18 05:30 12:09 16:44 WBC RBC Hgb Hct MCV MCH MCHC RDW Plt Count MPV Absolute Neuts (auto) Total Counted Neutrophils % Neutrophils % (Manual) Band Neutrophils % Lymphocytes % Lymphocytes % (Manual) Monocytes % Monocytes % (Manual) Eosinophils % Basophils % Nucleated RBC % Hypochromia Platelet Estimate Platelet Comment Polychromasia Poikilocytosis Anisocytosis Microcytosis Target Cells Ovalocytes Sodium Potassium Chloride Carbon Dioxide Anion Gap BUN Creatinine Creat Clearance w eGFR POC Glucometer 241.99631 196.38284 Random Glucose Calcium Phosphorus 2.4 L Magnesium 1.7 L Total Bilirubin AST ALT Alkaline Phosphatase Total Protein Albumin 06/24/18 06/25/18 06/25/18 21:22 01:55 05:30 WBC 19.2 H RBC 4.32 Hgb 10.3 L Hct 32.3 L MCV 74.8 L MCH 23.9 L MCHC 31.9 L RDW 30.0 H Plt Count 296 MPV 9.6 Absolute Neuts (auto) 18.0 Total Counted 100 Neutrophils % 93.8 H Neutrophils % (Manual) 94.0 H D Band Neutrophils % 2.0 Lymphocytes % 1.3 L D Lymphocytes % (Manual) 1.0 L D Monocytes % 4.8 Monocytes % (Manual) 3 L Eosinophils % 0.0 Basophils % 0.1 Nucleated RBC % 0 Hypochromia 1+ Platelet Estimate Adequate Platelet Comment No clumping noted Polychromasia 1+ Poikilocytosis 1+ Anisocytosis 3+ Microcytosis 2+ Target Cells 2+ Ovalocytes 1+ Sodium 129 L Potassium 3.5 Chloride 96 L Carbon Dioxide 28 Anion Gap 5 L BUN 18 Creatinine 0.5 L Creat Clearance w eGFR > 60 POC Glucometer [phone] Random Glucose 99 Calcium 7.1 L Phosphorus Magnesium Total Bilirubin AST ALT Alkaline Phosphatase Total Protein Albumin 06/25/18 06/25/18 05:30 05:39 WBC RBC Hgb Hct MCV MCH MCHC RDW Plt Count MPV Absolute Neuts (auto) Total Counted Neutrophils % Neutrophils % (Manual) Band Neutrophils % Lymphocytes % Lymphocytes % (Manual) Monocytes % Monocytes % (Manual) Eosinophils % Basophils % Nucleated RBC % Hypochromia Platelet Estimate Platelet Comment Polychromasia Poikilocytosis Anisocytosis Microcytosis Target Cells Ovalocytes Sodium 128 L Potassium 3.9 Chloride 95 L Carbon Dioxide 26 Anion Gap 7 L BUN 19 H Creatinine 0.5 L Creat Clearance w eGFR > 60 POC Glucometer [phone] Random Glucose 152 H Calcium 7.2 L Phosphorus Magnesium Total Bilirubin 0.8 AST 13 L ALT 15 Alkaline Phosphatase 77 Total Protein 4.2 L Albumin 1.4 L Active Medications Generic Name Dose Route Start Last Admin Trade Name Freq PRN Reason Stop Dose Admin Albuterol/Ipratropium 1 amp 06/22/18 17:53 Duoneb - NEB Q6H PRN SHORTNESS OF BREATH Chlorhexidine Gluconate 1 applic 06/22/18 22:00 06/24/18 21:16 Hibiclens For Decolonization - TP 1 applic HS REED Administration Chlorhexidine Gluconate 15 ml 06/23/18 10:00 06/24/18 21:17 Peridex - MM 15 ml BID REED Administration Heparin Sodium (Porcine) 5,000 unit 06/22/18 22:00 06/25/18 09:08 Heparin - SQ 5,000 unit BID REED Administration Hydrocortisone Sodium Succinate 50 mg 06/23/18 12:00 06/25/18 05:49 Solu-Cortef - IVPB 50 mg Q6H REED Administration Metronidazole 500 mg in 100 mls @ 100 mls/hr 06/22/18 21:00 06/25/18 08:50 Flagyl 500mg Premixed Ivpb - IVPB 100 mls/hr Q6H-IV REED Administration Propofol 1,000,000 mcg in 100 mls @ 1.894 mls/hr 06/22/18 18:15 06/25/18 09: 07 Diprivan - IVPB 10 mcg/kg/min TITR RE[facility] 3.788 mls/hr Administration Protocol 5 MCG/KG/MIN Fentanyl 500 mcg/ Dextrose 100 mls @ 5 mls/hr 06/22/18 18:15 06/24/18 18:18 IVPB Not Given TITR RE[facility] Protocol 25 MCG/HR Piperacillin Sod/Tazobactam 50 mls @ 100 mls/hr 06/23/18 02:00 06/25/18 09:08 Sod 3.375 gm/ Dextrose IVPB 100 mls/hr Q8H-IV REED Administration Protocol Vasopressin 50 units/ Sodium 100 mls @ 4.8 mls/hr 06/23/18 12:00 06/25/18 03: 40 Chloride IVPB 2.4 units/hr TITR REED 4.8 mls/hr Administration Protocol 2.4 UNITS/HR Sodium Chloride 1,000 mls @ 83 mls/hr 06/24/18 11:15 06/25/18 06:04 Normal Saline - IV 83 mls/hr ASDIR REED Administration Norepinephrine Bitartrate 16, 1,000 mls @ 18.75 mls/hr 06/25/18 06:40 06:50 000 mcg/ Sodium Chloride IV 12 mcg/min TITR REED 45 mls/hr Administration Protocol 5 MCG/MIN Caspofungin 50 mg/ Sodium 250 mls @ 250 mls/hr 06/26/18 10:00 Chloride IVPB DAILY [facility] Insulin Aspart 1 vial 06/22/18 22:00 06/25/18 06:02 Novolog Vial Sliding Scale - SQ 2 units ACHS REED Administration Protocol Levothyroxine Sodium 44 mcg 06/23/18 07:00 06/25/18 06:03 Synthroid Injection - IVPUSH 44 mcg 0700 REED Administration Metoprolol Tartrate 5 mg 06/22/18 18:00 06/25/18 09:07 Lopressor Injection - IVPUSH Not Given Q4H-IV REED Morphine Sulfate 2 mg 06/22/18 17:53 Morphine Sulfate IVPUSH Q6H PRN pain 6-10 Mupirocin 1 applic 06/22/18 22:00 06/25/18 09:09 Bactroban Ointment (For Decolonization) - NS 06/27/18 21:59 1 applic BID REED Administration Ondansetron HCl 4 mg 06/22/18 17:53 Zofran Injection IVPUSH Q6H PRN NAUSEA Pantoprazole Sodium 40 mg 06/23/18 10:00 06/25/18 09:08 Protonix Iv IVPUSH 40 mg DAILY REED Administration Microbiology 06/23/18 09:28 Blood Culture - Preliminary Blood - Peripheral Venous NO GROWTH OBTAINED AFTER 48 HOURS, INCUBATION TO CONTINUE FOR 3 DAYS. 06/23/18 09:35 Blood Culture - Preliminary Blood - Peripheral Venous NO GROWTH OBTAINED AFTER 48 HOURS, INCUBATION TO CONTINUE FOR 3 DAYS. 06/22/18 Unknown Gram Stain - Final Peritoneal Fluid Body Fluid Culture - Final Enterococcus Raffinosus Escherichia Coli Yeast Like Organism Anaerobic Culture - Final NO ANAEROBES WERE ISOLATED Assessment: 87 year old female with pmhx diastolic CHF, A fib, hypothyroid, CVA , breast CA, iron deficiency, DM II initially seen in [facility] lethargy and blood transfusion. Referred for colonoscopy, post procedure distention concern for perforation, transferred to [facility] for ex lap and surgical resection of rectosigmoid colon with end colostomy. Plan: 1. Septic shock, sepsis d/t colonic perforation s/p colonoscopy 06/22 - s/p Hartmans procedure 06/22 - Continue Levo, wean as BP permits - Continue vanco, zosyn - Culture resulted above - Leukocytosis increasing, however pod 3, will monitor prior to repeat CTAP d/w Dr. Sanabria - Daily dressing changes - Hold on initiating TF until off pressors and increase bowel production 2. A fib - Lopressor 5mg ivp prn - Not on AC - Hold PO meds: cardizem 180mg qday, tenormin 50mg po qday 3. Acute on chronic diastolic CHF - Hold po lasix d/t shock 4. Hypothyroidism - Synthroid 44mcg IVBP 5. Acute resp failure - Continue weaning per protocol - PPI 6. DVT ppx - Heparin sq 7. Electrolytes - Hypomagnesemia: Replete 1gm x1 Visit type - Emergency Visit Emergency Visit: Yes ED Registration Date: 06/12/18 Care time: The patient presented to the Emergency Department on the above date and was hospitalized for further evaluation of their emergent condition. - New Patient This patient is new to me today: No - Critical Care Critical Care patient: No
[2018-06-25] MEDS ORDERED: MAGNESIUM SULF 50% (8.12 MEQ/2 ML-1 GM VIAL) IVPB ONE (11:58)
--- NOTE | 2018-06-25 12:17 | PN ---
Teaching Attending Note Name of Resident: Henri Leos ATTENDING PHYSICIAN STATEMENT I saw and evaluated the patient. I reviewed the resident's note and discussed the case with the resident. I agree with the resident's findings and plan as documented. SUBJECTIVE: Pt seen and examined in the ICU. Remains intubated, sedated. On levophed gtt, vasopressin gtt tapered off. Vented on volume assist control with 50% FiO2. OBJECTIVE: Vital Signs Period Temp Pulse Resp BP Sys/De La O Pulse Ox Last 24 Hr 98.2 F-98.9 F 96-114 10-18 88-121/41-70 92-98 Intake & Output 06/22/18 06/23/18 06/24/18 06/25/18 23:59 23:59 23:59 23:59 Intake Total 5650 5687 4085.4 1163.6 Output Total 900 1530 1350 750 Balance 4750 4157 2735.4 413.6 Weight 63.14 kg 68.209 kg 70 kg 73.8 kg Gen: intubated, sedated Heart: tachycardic, regular Lung: decreased breath sounds at the bases Abd: soft, dressings dry, +ostomy pink Ext: + edema CBC, BMP 06/25/18 05:30 06/25/18 05:30 Active Medications Albuterol/Ipratropium (Duoneb -) 1 amp NEB Q6H PRN PRN Reason: SHORTNESS OF BREATH Chlorhexidine Gluconate (Hibiclens For Decolonization -) 1 applic TP HS [facility] Last Admin: 06/24/18 21:16 Dose: 1 applic Chlorhexidine Gluconate (Peridex -) 15 ml MM BID [facility] Last Admin: 06/24/18 21:17 Dose: 15 ml Heparin Sodium (Porcine) (Heparin -) 5,000 unit SQ BID RE[facility] Last Admin: 06/25/18 09:08 Dose: 5,000 unit Hydrocortisone Sodium Succinate (Solu-Cortef -) 50 mg IVPB Q6H [facility] Last Admin: 06/25/18 05:49 Dose: 50 mg Metronidazole (Flagyl 500mg Premixed Ivpb -) 500 mg in 100 mls @ 100 mls/hr IVPB Q6H-IV [facility] Last Admin: 06/25/18 08:50 Dose: 100 mls/hr Propofol (Diprivan -) 1,000,000 mcg in 100 mls @ 1.894 mls/hr IVPB TITR [facility]; Protocol Last Admin: 06/25/18 09:07 Dose: 10 mcg/kg/min, 3.788 mls/hr Fentanyl 500 mcg/ Dextrose 100 mls @ 5 mls/hr IVPB TITR [facility]; Protocol Last Admin: 06/24/18 18:18 Dose: Not Given Piperacillin Sod/Tazobactam (Sod 3.375 gm/ Dextrose) 50 mls @ 100 mls/hr IVPB Q8H-IV [facility]; Protocol Last Admin: 06/25/18 09:08 Dose: 100 mls/hr Vasopressin 50 units/ Sodium (Chloride) 100 mls @ 4.8 mls/hr IVPB TITR [facility]; Protocol Last Admin: 06/25/18 03:40 Dose: 2.4 units/hr, 4.8 mls/hr Norepinephrine Bitartrate 16, (000 mcg/ Sodium Chloride) 1,000 mls @ 18.75 mls/ hr IV TITR [facility]; Protocol Last Admin: 06/25/18 06:50 Dose: 12 mcg/min, 45 mls/hr Caspofungin 50 mg/ Sodium (Chloride) 250 mls @ 250 mls/hr IVPB DAILY RE[facility] Sodium Chloride (Normal Saline -) 1,000 mls @ 60 mls/hr IV ASDIR RE[facility] Magnesium Sulfate/Dextrose (Magnesium 1gm/D5w -) 1 gm in 100 mls @ 100 mls/hr IVPB ONCE ONE Stop: 06/25/18 13:29 Insulin Aspart (Novolog Vial Sliding Scale -) 1 vial SQ ACHS [facility]; Protocol Last Admin: 06/25/18 06:02 Dose: 2 units Levothyroxine Sodium (Synthroid Injection -) 44 mcg IVPUSH 0700 [facility] Last Admin: 06/25/18 06:03 Dose: 44 mcg Metoprolol Tartrate (Lopressor Injection -) 5 mg IVPUSH Q4H-IV [facility] Last Admin: 06/25/18 09:07 Dose: Not Given Morphine Sulfate (Morphine Sulfate) 2 mg IVPUSH Q6H PRN PRN Reason: pain 6-10 Mupirocin (Bactroban Ointment (For Decolonization) -) 1 applic NS BID [facility] Stop: 06/27/18 21:59 Last Admin: 08/05/18 09:09 Dose: 1 applic Ondansetron HCl (Zofran Injection) 4 mg IVPUSH Q6H PRN PRN Reason: NAUSEA Pantoprazole Sodium (Protonix Iv) 40 mg IVPUSH DAILY [facility] Last Admin: 06/25/18 09:08 Dose: 40 mg ASSESSMENT AND PLAN: Sigmoid Colon Rupture Fecal Peritonitis Septic Shock Acute Hypoxic and Hypercapneic Respiratory Failure Acute on Chronic Diastolic Heart Failure Pulmonary HTN CAD Atrial Fibrillation with RVR Hyponatremia Hypothyroidism UTI - continue antibiotics - f/u peritoneal cultures - IVF to keep CVP 8-12 - pressor support to maintain MAP >65 - taper stress dose steroids - inhaled bronchodilators - rate control - continue anticoagulation - taper FiO2 to keep Spo2 >90% - not a candidate for weaning at this time given hemodynamic instability - NPO, monitor ostomy output - DVT/GI prophylaxis - continue ICU monitoring critical care time spent in reviewing chart, evaluating patient and formulating plan 35 min
[2018-06-25] MEDS ORDERED: MAGNESIUM 1GM/D5W - 1 GM/100 ML IVPB IVPB ONE (12:30)
--- NOTE | 2018-06-25 12:38 | PN ---
Physical Exam: SUBJECTIVE: Pt still requiring pressor support for maintenance of MAP 65+. She has been slowly titrated down to now Levophed and Vasopressin. Remains intubated and sedated still. Urinary output improved, however still oliguric. Osteomy has minimal output currently and NGT remains draining. CVP this morning fluctuating between 6 and 7. OBJECTIVE: Vital Signs Period Temp Pulse Resp BP Sys/De La O Pulse Ox Last 24 Hr 98.2 F-98.9 F 96-114 10-18 88-121/41-70 92-98 GENERAL: Intubated and sedated HEENT: pupils pinpoint with sluggish reactivity, dry mucosa, ETT in place, NGT in place draining feculent material NECK: No JVD LUNGS: Breath sounds equal, clear to auscultation bilaterally, no wheezes, no crackles, no accessory muscle use. HEART: Regular rate and rhythm, S1, S2 without murmur, rub or gallop. ABDOMEN: Soft, nontender, nondistended, normoactive bowel sounds, no guarding, no rebound, no hepatosplenomegaly, no masses. EXTREMITIES: 2+ pulses, warm, well-perfused, no edema. NEUROLOGICAL: Cranial nerves II through XII grossly intact. Normal speech, gait not observed. PSYCH: Normal mood, normal affect. SKIN: Warm, dry, normal turgor, no rashes or lesions noted Laboratory Results - last 24 hr 06/24/18 06/24/18 06/24/18 05:30 16:44 21:22 WBC RBC Hgb Hct MCV MCH MCHC RDW Plt Count MPV Absolute Neuts (auto) Total Counted Neutrophils % Neutrophils % (Manual) Band Neutrophils % Lymphocytes % Lymphocytes % (Manual) Monocytes % Monocytes % (Manual) Eosinophils % Basophils % Nucleated RBC % Hypochromia Platelet Estimate Platelet Comment Polychromasia Poikilocytosis Anisocytosis Microcytosis Target Cells Ovalocytes Sodium Potassium Chloride Carbon Dioxide Anion Gap BUN Creatinine Creat Clearance w eGFR POC Glucometer [phone] Random Glucose Calcium Phosphorus 2.4 L Magnesium 1.7 L Total Bilirubin AST ALT Alkaline Phosphatase Total Protein Albumin 06/25/18 06/25/18 06/25/18 01:55 05:30 05:30 WBC 19.2 H RBC 4.32 Hgb 10.3 L Hct 32.3 L MCV 74.8 L MCH 23.9 L MCHC 31.9 L RDW 30.0 H Plt Count 296 MPV 9.6 Absolute Neuts (auto) 18.0 Total Counted 100 Neutrophils % 93.8 H Neutrophils % (Manual) 94.0 H D Band Neutrophils % 2.0 Lymphocytes % 1.3 L D Lymphocytes % (Manual) 1.0 L D Monocytes % 4.8 Monocytes % (Manual) 3 L Eosinophils % 0.0 Basophils % 0.1 Nucleated RBC % 0 Hypochromia 1+ Platelet Estimate Adequate Platelet Comment No clumping noted Polychromasia 1+ Poikilocytosis 1+ Anisocytosis 3+ Microcytosis 2+ Target Cells 2+ Ovalocytes 1+ Sodium 129 L 128 L Potassium 3.5 3.9 Chloride 96 L 95 L Carbon Dioxide 28 26 Anion Gap 5 L 7 L BUN 18 19 H Creatinine 0.5 L 0.5 L Creat Clearance w eGFR > 60 > 60 POC Glucometer Random Glucose 99 152 H Calcium 7.1 L 7.2 L Phosphorus Magnesium Total Bilirubin 0.8 AST 13 L ALT 15 Alkaline Phosphatase 77 Total Protein 4.2 L Albumin 1.4 L 06/25/18 05:39 WBC RBC Hgb Hct MCV MCH MCHC RDW Plt Count MPV Absolute Neuts (auto) Total Counted Neutrophils % Neutrophils % (Manual) Band Neutrophils % Lymphocytes % Lymphocytes % (Manual) Monocytes % Monocytes % (Manual) Eosinophils % Basophils % Nucleated RBC % Hypochromia Platelet Estimate Platelet Comment Polychromasia Poikilocytosis Anisocytosis Microcytosis Target Cells Ovalocytes Sodium Potassium Chloride Carbon Dioxide Anion Gap BUN Creatinine Creat Clearance w eGFR POC Glucometer [phone] Random Glucose Calcium Phosphorus Magnesium Total Bilirubin AST ALT Alkaline Phosphatase Total Protein Albumin Active Medications Generic Name Dose Route Start Last Admin Trade Name Freq PRN Reason Stop Dose Admin Albuterol/Ipratropium 1 amp 06/22/18 17:53 Duoneb - NEB Q6H PRN SHORTNESS OF BREATH Chlorhexidine Gluconate 1 applic 06/22/18 22:00 06/24/18 21:16 Hibiclens For Decolonization - TP 1 applic HS REED Administration Chlorhexidine Gluconate 15 ml 06/23/18 10:00 06/24/18 21:17 Peridex - MM 15 ml BID REED Administration Heparin Sodium (Porcine) 5,000 unit 06/22/18 22:00 06/25/18 09:08 Heparin - SQ 5,000 unit BID REED Administration Hydrocortisone Sodium Succinate 50 mg 06/23/18 12:00 06/25/18 05:49 Solu-Cortef - IVPB 50 mg Q6H REED Administration Metronidazole 500 mg in 100 mls @ 100 mls/hr 06/22/18 21:00 06/25/18 08:50 Flagyl 500mg Premixed Ivpb - IVPB 100 mls/hr Q6H-IV REED Administration Propofol 1,000,000 mcg in 100 mls @ 1.894 mls/hr 06/22/18 18:15 06/25/18 09: 07 Diprivan - IVPB 10 mcg/kg/min TITR REED 3.788 mls/hr Administration Protocol 5 MCG/KG/MIN Fentanyl 500 mcg/ Dextrose 100 mls @ 5 mls/hr 06/22/18 18:15 06/24/18 18:18 IVPB Not Given TITR REED Protocol 25 MCG/HR Piperacillin Sod/Tazobactam 50 mls @ 100 mls/hr 06/23/18 02:00 06/25/18 09:08 Sod 3.375 gm/ Dextrose IVPB 100 mls/hr Q8H-IV REED Administration Protocol Vasopressin 50 units/ Sodium 100 mls @ 4.8 mls/hr 06/23/18 12:00 06/25/18 03: 40 Chloride IVPB 2.4 units/hr TITR REED 4.8 mls/hr Administration Protocol 2.4 UNITS/HR Norepinephrine Bitartrate 16, 1,000 mls @ 18.75 mls/hr 06/25/18 06:40 06:50 000 mcg/ Sodium Chloride IV 12 mcg/min TITR REED 45 mls/hr Administration Protocol 5 MCG/MIN Caspofungin 50 mg/ Sodium 250 mls @ 250 mls/hr 06/26/18 10:00 Chloride IVPB DAILY REED Sodium Chloride 1,000 mls @ 60 mls/hr 06/25/18 12:05 Normal Saline - IV ASDIR REED Magnesium Sulfate/Dextrose 1 gm in 100 mls @ 100 mls/hr 06/25/18 12:30 Magnesium 1gm/D5w - IVPB 06/25/18 13:29 ONCE ONE Insulin Aspart 1 vial 06/22/18 22:00 06/25/18 06:02 Novolog Vial Sliding Scale - SQ 2 units ACHS REED Administration Protocol Levothyroxine Sodium 44 mcg 06/23/18 07:00 06/25/18 06:03 Synthroid Injection - IVPUSH 44 mcg 0700 [facility] Administration Metoprolol Tartrate 5 mg 06/22/18 18:00 06/25/18 09:07 Lopressor Injection - IVPUSH Not Given Q4H-IV REED Morphine Sulfate 2 mg 06/22/18 17:53 Morphine Sulfate IVPUSH Q6H PRN pain 6-10 Mupirocin 1 applic 06/22/18 22:00 06/25/18 09:09 Bactroban Ointment (For Decolonization) - NS 06/27/18 21:59 1 applic BID REED Administration Ondansetron HCl 4 mg 06/22/18 17:53 Zofran Injection IVPUSH Q6H PRN NAUSEA Pantoprazole Sodium 40 mg 06/23/18 10:00 06/25/18 09:08 Protonix Iv IVPUSH 40 mg DAILY REED Administration ASSESSMENT/PLAN: Rectosigmoid perforation Fecal peritonitis Pressor refractory septic shock 2/2 to above Acute hypoxic hypercapneic respiratory failure Atrial fibrillation with RVR (improving) Chronic diastolic heart failure Hyponatremia CAD history Hypothyroidism Neuro: Pt currently sedated with propofol and fentanyl Will trial light sedation today and titrate as needed Respiratory: Continued intubation with AC mode of vent Not a weaning candidate currently Cardiac: Fluid resuscitation per CVP (goal 8-12 currently) Pressor support for MAP >65 --Currently on Levophed 12 and Vasopressin 1.2 U/hr CVP 6 this morning so will continue NS @83cc/hr to help increase intravascular volume Rate control with Lopressor 5mg IVP q4h as needed for tachycardia Not a candidate for AC due to recent surgery; will have to clear with surgical team prior to initiation ID: Septic shock improving Cortef can be decreased to 50mg q8h if pressor requirement does not increase ID on board --Adding Caspofungin due to yeast-like organism seen in cultures --Continue Zosyn --Continue Flagyl Concern that abscess formation likely to happen with fecal peritonitis --If major improvement does not occur will have to think about imaging FEN: Fluids: NS@83cc/hr Electrolyte abnormalities: HypoMg (1gm Mg administered IVP), Hyponatremia worsening (changing gtt to NS from D5w as much as possible) Nutrition: Strict NPO currently PPX: DVT - Heparin SQ BID GI - Protonix 40mg IVP qDaily Dispo: ICU monitoring; pressor support weaned as tolerated Prognosis: Guarded Case discussed with Dr. Daniele Leos, DO - IM PGY-2 I - - continue anticoagulation - taper FiO2 to keep Spo2 >90% - not a candidate for weaning at this time given hemodynamic instability - NPO, monitor ostomy output - DVT/GI prophylaxis - continue ICU monitoring Visit type - Emergency Visit Emergency Visit: No - New Patient This patient is new to me today: No - Critical Care Critical Care patient: Yes Total Critical Care Time (in minutes): 40 Critical Care Statement: The care of this patient involved high complexity decision making to prevent further life threatening deterioration of the patient 's condition and/or to evaluate & treat vital organ system(s) failure or risk of failure.
[2018-06-25] MEDS: CHLORHEXIDINE GLUCONATE 0.12% 15ML CUP MM SCH ×2 (13:54→21:48)
--- NOTE | 2018-06-25 14:37 | PN ---
Progress Note, Physician Chief Complaint: colonic perforation History of Present Illness: 87yo female MMP developed abdominal distention and pain during inpatient colonoscopy as part of a w/u for anemia. Found to have a colonic perforation at the level of the sigmoid. taken for operative intervention. Remains in ICU on sedated mechanically ventilated on vasopressor support. No acute changes overnight. - Current Medication List Current Medications: Active Medications Albuterol/Ipratropium (Duoneb -) 1 amp NEB Q6H PRN PRN Reason: SHORTNESS OF BREATH Chlorhexidine Gluconate (Hibiclens For Decolonization -) 1 applic TP HS [facility] Last Admin: 06/24/18 21:16 Dose: 1 applic Chlorhexidine Gluconate (Peridex -) 15 ml MM BID RE[facility] Last Admin: 06/25/18 13:54 Dose: 15 ml Heparin Sodium (Porcine) (Heparin -) 5,000 unit SQ BID RE[facility] Last Admin: 06/25/18 09:08 Dose: 5,000 unit Hydrocortisone Sodium Succinate (Solu-Cortef -) 50 mg IVPB Q6H [facility] Last Admin: 06/25/18 13:53 Dose: 50 mg Metronidazole (Flagyl 500mg Premixed Ivpb -) 500 mg in 100 mls @ 100 mls/hr IVPB Q6H-IV [facility] Last Admin: 06/25/18 08:50 Dose: 100 mls/hr Propofol (Diprivan -) 1,000,000 mcg in 100 mls @ 1.894 mls/hr IVPB TITR [facility]; Protocol Last Admin: 06/25/18 09:07 Dose: 10 mcg/kg/min, 3.788 mls/hr Fentanyl 500 mcg/ Dextrose 100 mls @ 5 mls/hr IVPB TITR [facility]; Protocol Last Admin: 06/24/18 18:18 Dose: Not Given Piperacillin Sod/Tazobactam (Sod 3.375 gm/ Dextrose) 50 mls @ 100 mls/hr IVPB Q8H-IV [facility]; Protocol Last Admin: 06/25/18 09:08 Dose: 100 mls/hr Vasopressin 50 units/ Sodium (Chloride) 100 mls @ 4.8 mls/hr IVPB TITR [facility]; Protocol Last Admin: 06/25/18 03:40 Dose: 2.4 units/hr, 4.8 mls/hr Norepinephrine Bitartrate 16, (000 mcg/ Sodium Chloride) 1,000 mls @ 18.75 mls/ hr IV TITR [facility]; Protocol Last Admin: 06/25/18 06:50 Dose: 12 mcg/min, 45 mls/hr Caspofungin 50 mg/ Sodium (Chloride) 250 mls @ 250 mls/hr IVPB DAILY [facility] Sodium Chloride (Normal Saline -) 1,000 mls @ 60 mls/hr IV ASDIR [facility] Last Admin: 06/25/18 13:54 Dose: 60 mls/hr Insulin Aspart (Novolog Vial Sliding Scale -) 1 vial SQ ACHS [facility]; Protocol Last Admin: 06/25/18 06:02 Dose: 2 units Levothyroxine Sodium (Synthroid Injection -) 44 mcg IVPUSH 0700 [facility] Last Admin: 06/25/18 06:03 Dose: 44 mcg Metoprolol Tartrate (Lopressor Injection -) 5 mg IVPUSH Q4H-IV [facility] Last Admin: 06/25/18 13:55 Dose: Not Given Morphine Sulfate (Morphine Sulfate) 2 mg IVPUSH Q6H PRN PRN Reason: pain 6-10 Mupirocin (Bactroban Ointment (For Decolonization) -) 1 applic NS BID [facility] Stop: 06/27/18 21:59 Last Admin: 06/25/18 09:09 Dose: 1 applic Ondansetron HCl (Zofran Injection) 4 mg IVPUSH Q6H PRN PRN Reason: NAUSEA Pantoprazole Sodium (Protonix Iv) 40 mg IVPUSH DAILY [facility] Last Admin: 06/25/18 09:08 Dose: 40 mg - Objective Vital Signs: Vital Signs Temperature 98 F 06/25/18 12:00 Pulse Rate 100 H 06/25/18 13:55 Respiratory Rate 13 06/25/18 14:34 Blood Pressure 99/47 06/25/18 13:00 O2 Sat by Pulse Oximetry (%) 96 06/25/18 09:00 Constitutional: Yes: Well Nourished, No Distress, Calm Eyes: Yes: Conjunctiva Clear, EOM Intact HENT: Yes: Atraumatic, Normocephalic Neck: Yes: Supple, Trachea Midline Cardiovascular: Yes: Regular Rate and Rhythm, S1, S2 Respiratory: Yes: Regular, CTA Bilaterally, Mechanically Ventilated Gastrointestinal: Yes: Normal Bowel Sounds, Soft, Other (open midline and functioning coloistomy and drain). No: Ascites ...Rectal Exam: Yes: Deferred Genitourinary: No: CVA Tenderness - Left, CVA Tenderness - Right Musculoskeletal: No: Muscle Pain, Muscle Weakness Extremities: No: Cool, Cyanosis Edema: No Peripheral Pulses WNL: Yes Peripheral Pulses: Left Radial: 2+, Right Radial: 2+, Left Doralis Pedis: 2+, Right Dorsalis Pedis: 2+ Integumentary: No: Jaundice Wound/Incision: Yes: Clean/Dry, Dressing Dry and Intact, Unapproximated Labs: CBC, BMP 06/25/18 05:30 06/25/18 05:30 INR, PTT INR 1.27 (0.82-1.09) H 06/12/18 07:47 Problem List - Problems (1) Status post Sam procedure Assessment/Plan: POD#2 s/p Lopez's procedure after colonic perforation with significant fecal peritonitis. sepsis and MOSF in critical condition. Management per ICU team IVF resuscitation Strict I&Os IV antibiotics Trend labs and replete electrolytes Ween from vasopressor as hemodynamics allow Continue RLQ pelvic drain to suction Continue NGT to LCWS Local wound care - Abdominal wound daily or when soiled Dressin" iodoform packing, 4X4 gauze sponges and tape Measurement: upper midline [id number] and lower midline [id number] Optimize nutrition RONAL - reccomend PPN or TPN GI and DVT prophylaxsis Resume anticoagulation as needed will follow This patient is critically ill. Time spent reviewing chart, examining patient, talking with providers and/or family and documentation is 45 minutes Code(s): Z93.3 - COLOSTOMY STATUS (2) Acute on chronic diastolic heart failure Code(s): I50.33 - ACUTE ON CHRONIC DIASTOLIC (CONGESTIVE) HEART FAILURE (3) Acute on chronic respiratory failure with hypoxia and hypercapnia Code(s): J96.21 - ACUTE AND CHRONIC RESPIRATORY FAILURE WITH HYPOXIA; J96.22 - ACUTE AND CHRONIC RESPIRATORY FAILURE WITH HYPERCAPNIA (4) Atrial fibrillation Code(s): I48.91 - UNSPECIFIED ATRIAL FIBRILLATION Qualifiers: Atrial fibrillation type: persistent Qualified Code(s): I48.1 - Persistent atrial fibrillation (5) Hypothyroidism Code(s): E03.9 - HYPOTHYROIDISM, UNSPECIFIED Qualifiers: Hypothyroidism type: unspecified Qualified Code(s): E03.9 - Hypothyroidism , unspecified (6) Perforation of colon as colonoscopy complication Code(s): K63.1 - PERFORATION OF INTESTINE (NONTRAUMATIC); K91.71 - ACCIDENTAL PNCTR & LAC OF A DGSTV SYS ORG DUR DGSTV SYS PROC (7) Pulmonary hypertension Code(s): I27.20 - PULMONARY HYPERTENSION, UNSPECIFIED
[2018-06-25] MEDS: FENTANYL INJECTION 500 MCG in DEXTROSE 5%-WATER - 90 ML IVPB SCH (18:43)
[2018-06-25] MEDS: CHLORHEXIDINE GLUCONATE 4% CLEANSER FOR DECOLONIZATION TP SCH (21:47)
[2018-06-25] MEDS ORDERED: PROPOFOL 1,000,000 MCG/100 ML VIAL ONE (23:17)
[2018-06-26] MEDS: PIPERACILLIN/TAZOB 3.375 GM 3.375 GM in DEXTROSE 5%-WATER - 50 ML IVPB SCH ×3 (02:25→17:22)
[2018-06-26] MEDS ORDERED: PIPERACILLIN/TAZOBACTAM 3.375 GM VIAL IVPB ONE ×3 (02:42→17:02)
[2018-06-26] MEDS ORDERED: DEXTROSE 5%-WATER - 50 ML IVPB ONE ×3 (02:42→17:02)
[2018-06-26] MEDS: METOPROLOL TARTRATE 5 MG/5 ML VIAL IVPUSH SCH ×6 (02:49→21:29)
[2018-06-26] MEDS: HYDROCORTISONE SOD SUCCINATE 100 MG/2 ML VIAL IVPB SCH (05:38)
[2018-06-26] MEDS: NOREPINEPHRINE BITARTRATE 16,000 MCG in SODIUM CHLORIDE 0.45% 984 ML IV SCH (05:48)
[2018-06-26 06:07] LABS: EOS % 0.1 % (0-4.5); HEMATOCRIT 32.6 % (32.4-45.2); HEMOGLOBIN 10.6 GM/dL (10.7-15.3); LYMPH % 1.4 % (8-40); MCH 24.2 pg (25.7-33.7); MCHC 32.4 g/dl (32.0-36.0); MEAN CELL VOLUME 74.9 fl (80-96); MONO % 4.9 % (3.8-10.2); NEUT % 93.6 % (42.8-82.8); PLATELET COUNT 331 K/MM3 (134-434); RBC 4.36 M/mm3 (3.60-5.2); RDW 30.2 % (11.6-15.6); WHITE BLOOD COUNT 19.9 K/mm3 (4.0-10.0)
[2018-06-26] MEDS: INSULIN SLIDING SCALE (NOVOLOG) 1 VIAL SQ SCH ×4 (06:08→21:36)
[2018-06-26] MEDS: LEVOTHYROXINE SODIUM 100 MCG VIAL IVPUSH SCH (06:08)
[2018-06-26 06:37] LABS: CHLORIDE 98 mmol/L (98-107); POTASSIUM 3.8 mmol/L (3.5-5.1); SODIUM 131 mmol/L (136-145)
[2018-06-26 06:48] LABS: ALBUMIN 1.5 g/dl (3.4-5.0); ALK PHOS 95 U/L (45-117); ANION GAP 7 (8-16); BILIRUBIN,TOTAL 0.8 mg/dL (0.2-1.0); BLOOD UREA NITROGEN 19 mg/dL (7-18); CALCIUM 7.6 mg/dL (8.5-10.1); CO2 26 mmol/L (21-32); CREATININE 0.5 mg/dL (0.55-1.02); GLUCOSE,RANDOM 154 mg/dL (74-106); MAGNESIUM 2.2 mg/dL (1.8-2.4); PHOSPHOROUS 1.8 mg/dL (2.5-4.9); SGOT/AST 12 U/L (15-37); SGPT/ALT 13 U/L (12-78); TOT PROT 4.6 g/dl (6.4-8.2)
--- NOTE | 2018-06-26 07:32 | PN ---
Progress Note (short form) - Note Progress Note: POD #4 s/p Lopez's Procedure (secondary to sigmoid perforation during colonoscopy for anemia work-up). Patient remains sedated/mechanically vented and on Norepi drip. No acute events overnight per RN notes. Last Vital Signs Temp Pulse Resp BP Pulse Ox 97.6 F 98 H 14 118/54 95 18 06:00 06/26/18 07:00 06/26/18 07:00 06/26/18 07:00 06/25/18 21:00 WBC TREND 06/22/18 06/23/18 06/24/18 06/25/18 06/26/18 21:30 05:30 05:30 05:30 05:30 WBC 4.7 10.8 H 18.0 H 19.2 19.9 BMP 06/26/18 05:30 Blood Type Blood Type O POSITIVE 06/22/18 13:20 INR, PTT INR 1.27 (0.82-1.09) H 06/12/18 07:47 Microbiology 06/23/18 09:28 Blood - Peripheral Venous Blood Culture - Preliminary NO GROWTH OBTAINED AFTER 48Hrs, INCUBATION TO CONT FOR 3 DAYS. Gen: eyes open to verbal command ENT: Soft. Supple. Trach midline. Right IJ central line in place. NGT 400/24hr ABD: Midline incision open. Deep fascia intact. LLQ ostomy viable (pink/ protruding/producing) --> + stool in the bag. RAJANI 250/24hr : kapoor to gravity LE: SCDs and heel protectors bilateral Problem List - Problems (1) Status post Sam procedure Assessment/Plan: POD #4 Hyponatremic / replete slowly Trend CBC/BMP Cont ICU management IVF resuscitation Monitor I&Os IV ABX Pressor support Daily dressing changes ordered: --> daily or when soiled --> dressin" iodoform packing, 4X4 gauze sponges and tape Reccomend PPN or TPN GI/DVT prophylaxsis Above discussed with Dr. Lora and agrees Code(s): Z93.3 - COLOSTOMY STATUS
--- NOTE | 2018-06-26 09:05 | PN ---
Progress Note (short form) - Note Progress Note: Patient remains intubated but is arouseable/moves extremities when sedation reduced. On pressors with BP systolic around 100. IV antibiotics per ID with WBC 19-20K. Afebrile Abdomen soft BS present and ostomy functioning. Chem panel stable including BUN/creat Hct stable. Postop course relatively stable although still intubated with leukocytosis and on low dose pressors. Plans per Surgery and ICU team re: BP/respiratory management. Will follow.
[2018-06-26] MEDS: HEPARIN NA (PORCINE) 5,000 UNITS/ML 1ML VIAL SQ SCH ×2 (09:30→21:29)
[2018-06-26] MEDS: MUPIROCIN 2% TOPICAL OINTMENT FOR DECOLONIZATION NS SCH ×2 (09:31→21:28)
[2018-06-26] MEDS: CASPOFUNGIN ACETATE 50 MG in SODIUM CHLORIDE 250 ML IVPB SCH (09:32)
[2018-06-26] MEDS: PANTOPRAZOLE SODIUM 40 MG VIAL IVPUSH SCH (09:32)
[2018-06-26] MEDS: CHLORHEXIDINE GLUCONATE 0.12% 15ML CUP MM SCH ×2 (09:32→21:29)
[2018-06-26 09:57] LABS: ANISOCYTOSIS 1+; MACROCYTOSIS 1+; PLATELET ESTIMATE NORMAL
--- NOTE | 2018-06-26 12:23 | PN ---
Teaching Attending Note Name of Resident: Alfredo Rodriguez ATTENDING PHYSICIAN STATEMENT I saw and evaluated the patient. I reviewed the resident's note and discussed the case with the resident. I agree with the resident's findings and plan as documented. SUBJECTIVE: Pt seen and examined in the ICU. Remains intubated, sedated. Off vasopressin gtt , on lower dose levophed gtt. Ostomy functioning. OBJECTIVE: Vital Signs Period Temp Pulse Resp BP Sys/De La O Pulse Ox Last 24 Hr 97.6 F-99.4 F 93-117 10-19 96-130/47-65 93-96 Intake & Output 06/23/18 06/24/18 06/25/18 06/26/18 23:59 23:59 23:59 23:59 Intake Total 5687 4085.4 3851.6 Output Total 1530 1350 1550 350 Balance 4157 2735.4 2301.6 -350 Weight 68.209 kg 70 kg 73.8 kg 75.3 kg Gen: intubated, sedated Heart: tachycardic, irregular Lung: scattered rhonchi, decreased breath sounds on left Abd: soft, nontender, +ostomy pink, stool output Ext: + edema CBC, BMP 06/26/18 05:30 06/26/18 05:30 CXR: bilateral effusions, left atelectasis Active Medications Albuterol/Ipratropium (Duoneb -) 1 amp NEB Q6H PRN PRN Reason: SHORTNESS OF BREATH Chlorhexidine Gluconate (Hibiclens For Decolonization -) 1 applic TP HS REED Last Admin: 06/25/18 21:47 Dose: 1 applic Chlorhexidine Gluconate (Peridex -) 15 ml MM BID REED Last Admin: 06/26/18 09:32 Dose: 15 ml Heparin Sodium (Porcine) (Heparin -) 5,000 unit SQ BID REED Last Admin: 06/26/18 09:30 Dose: 5,000 unit Hydrocortisone Sodium Succinate (Solu-Cortef -) 50 mg IVPB Q8H REED Metronidazole (Flagyl 500mg Premixed Ivpb -) 500 mg in 100 mls @ 100 mls/hr IVPB Q6H-IV REED Last Admin: 06/26/18 09:31 Dose: 100 mls/hr Propofol (Diprivan -) 1,000,000 mcg in 100 mls @ 1.894 mls/hr IVPB TITR REED; Protocol Last Admin: 06/25/18 09:07 Dose: 10 mcg/kg/min, 3.788 mls/hr Fentanyl 500 mcg/ Dextrose 100 mls @ 5 mls/hr IVPB TITR REED; Protocol Last Admin: 06/25/18 18:43 Dose: Not Given Piperacillin Sod/Tazobactam (Sod 3.375 gm/ Dextrose) 50 mls @ 100 mls/hr IVPB Q8H-IV REED; Protocol Last Admin: 06/26/18 09:32 Dose: 100 mls/hr Norepinephrine Bitartrate 16, (000 mcg/ Sodium Chloride) 1,000 mls @ 18.75 mls/ hr IV TITR REED; Protocol Last Titration: 06/26/18 06:09 Dose: 8 mcg/min, 30 mls/hr Caspofungin 50 mg/ Sodium (Chloride) 250 mls @ 250 mls/hr IVPB DAILY REED Last Admin: 06/26/18 09:32 Dose: 250 mls/hr Sodium Chloride (Normal Saline -) 1,000 mls @ 60 mls/hr IV ASDIR REED Last Admin: 06/25/18 13:54 Dose: 60 mls/hr Insulin Aspart (Novolog Vial Sliding Scale -) 1 vial SQ ACHS COUNTS INCLUDE 234 BEDS AT THE [facility]; Protocol Last Admin: 06/26/18 11:39 Dose: 2 units Levothyroxine Sodium (Synthroid Injection -) 44 mcg IVPUSH 0700 COUNTS INCLUDE 234 BEDS AT THE [facility] Last Admin: 06/26/18 06:08 Dose: 44 mcg Metoprolol Tartrate (Lopressor Injection -) 5 mg IVPUSH Q4H-IV REED Last Admin: 06/26/18 09:32 Dose: Not Given Mupirocin (Bactroban Ointment (For Decolonization) -) 1 applic NS BID COUNTS INCLUDE 234 BEDS AT THE [facility] Stop: 06/27/18 21:59 Last Admin: 06/26/18 09:31 Dose: 1 applic Ondansetron HCl (Zofran Injection) 4 mg IVPUSH Q6H PRN PRN Reason: NAUSEA Pantoprazole Sodium (Protonix Iv) 40 mg IVPUSH DAILY COUNTS INCLUDE 234 BEDS AT THE [facility] Last Admin: 06/26/18 09:32 Dose: 40 mg ASSESSMENT AND PLAN: Sigmoid Colon Rupture Fecal Peritonitis Septic Shock Acute Hypoxic and Hypercapneic Respiratory Failure Acute on Chronic Diastolic Heart Failure Pulmonary HTN CAD Atrial Fibrillation with RVR Hyponatremia Hypothyroidism UTI - performed recruitment maneuver during rounds - position right side down, chest PT, bed percussion - monitor CXR - continue antibiotics - IVF to keep CVP 8-12 - pressor support to maintain MAP >65 - taper stress dose steroids - inhaled bronchodilators - rate control - continue anticoagulation - taper FiO2 to keep Spo2 >90% - not a candidate for weaning at this time given hemodynamic instability - monitor ostomy output - d/w surgery enteral feeds otherwise may need to start TPN - DVT/GI prophylaxis - continue ICU monitoring critical care time spent in reviewing chart, evaluating patient and formulating plan 35 min
--- NOTE | 2018-06-26 13:55 | PN ---
Progress Note, Physician History of Present Illness: Remains intubated and sedated s/p Lopez's procedure and fecal peritonitis. Weaning off pressors. Rapid afib. - Current Medication List Current Medications: Active Medications Albuterol/Ipratropium (Duoneb -) 1 amp NEB Q6H PRN PRN Reason: SHORTNESS OF BREATH Chlorhexidine Gluconate (Hibiclens For Decolonization -) 1 applic TP HS REED Last Admin: 06/25/18 21:47 Dose: 1 applic Chlorhexidine Gluconate (Peridex -) 15 ml MM BID REED Last Admin: 06/26/18 09:32 Dose: 15 ml Heparin Sodium (Porcine) (Heparin -) 5,000 unit SQ BID REED Last Admin: 06/26/18 09:30 Dose: 5,000 unit Hydrocortisone Sodium Succinate (Solu-Cortef -) 50 mg IVPB Q8H REED Last Admin: 06/26/18 13:19 Dose: 50 mg Metronidazole (Flagyl 500mg Premixed Ivpb -) 500 mg in 100 mls @ 100 mls/hr IVPB Q6H-IV REED Last Admin: 06/26/18 09:31 Dose: 100 mls/hr Propofol (Diprivan -) 1,000,000 mcg in 100 mls @ 1.894 mls/hr IVPB TITR REED; Protocol Last Admin: 06/25/18 09:07 Dose: 10 mcg/kg/min, 3.788 mls/hr Fentanyl 500 mcg/ Dextrose 100 mls @ 5 mls/hr IVPB TITR REED; Protocol Last Admin: 06/25/18 18:43 Dose: Not Given Piperacillin Sod/Tazobactam (Sod 3.375 gm/ Dextrose) 50 mls @ 100 mls/hr IVPB Q8H-IV REED; Protocol Last Admin: 06/26/18 09:32 Dose: 100 mls/hr Norepinephrine Bitartrate 16, (000 mcg/ Sodium Chloride) 1,000 mls @ 18.75 mls/ hr IV TITR REED; Protocol Last Titration: 06/26/18 06:09 Dose: 8 mcg/min, 30 mls/hr Caspofungin 50 mg/ Sodium (Chloride) 250 mls @ 250 mls/hr IVPB DAILY REED Last Admin: 06/26/18 09:32 Dose: 250 mls/hr Sodium Chloride (Normal Saline -) 1,000 mls @ 60 mls/hr IV ASDIR [facility] Last Admin: 06/25/18 13:54 Dose: 60 mls/hr Insulin Aspart (Novolog Vial Sliding Scale -) 1 vial SQ ACHS [facility]; Protocol Last Admin: 06/26/18 11:39 Dose: 2 units Levothyroxine Sodium (Synthroid Injection -) 44 mcg IVPUSH 0700 [facility] Last Admin: 06/26/18 06:08 Dose: 44 mcg Metoprolol Tartrate (Lopressor Injection -) 5 mg IVPUSH Q4H-IV [facility] Last Admin: 06/26/18 13:45 Dose: Not Given Mupirocin (Bactroban Ointment (For Decolonization) -) 1 applic NS BID [facility] Stop: 06/27/18 21:59 Last Admin: 06/26/18 09:31 Dose: 1 applic Ondansetron HCl (Zofran Injection) 4 mg IVPUSH Q6H PRN PRN Reason: NAUSEA Pantoprazole Sodium (Protonix Iv) 40 mg IVPUSH DAILY [facility] Last Admin: 06/26/18 09:32 Dose: 40 mg - Objective Vital Signs: Vital Signs Temperature 97.8 F 06/26/18 12:00 Pulse Rate 100 H 06/26/18 13:45 Respiratory Rate 16 06/26/18 12:00 Blood Pressure 100/58 06/26/18 13:45 O2 Sat by Pulse Oximetry (%) 96 06/26/18 11:21 Constitutional: Yes: No Distress, Calm Neck: Yes: Supple Cardiovascular: Yes: Pulse Irregular Respiratory: Yes: Intubated, Mechanically Ventilated, Rhonchi Gastrointestinal: Yes: Soft, Hypoactive Bowel Sounds, Other (Colostomy) Edema: No Labs: CBC, BMP 06/26/18 05:30 06/26/18 05:30 INR, PTT INR 1.27 (0.82-1.09) H 06/12/18 07:47 Problem List - Problems (1) Acute on chronic diastolic heart failure Code(s): I50.33 - ACUTE ON CHRONIC DIASTOLIC (CONGESTIVE) HEART FAILURE (2) Atrial fibrillation Code(s): I48.91 - UNSPECIFIED ATRIAL FIBRILLATION Qualifiers: Atrial fibrillation type: persistent Qualified Code(s): I48.1 - Persistent atrial fibrillation (3) Pleural effusion Code(s): J90 - PLEURAL EFFUSION, NOT ELSEWHERE CLASSIFIED (4) Hypothyroidism Code(s): E03.9 - HYPOTHYROIDISM, UNSPECIFIED Qualifiers: Hypothyroidism type: unspecified Qualified Code(s): E03.9 - Hypothyroidism , unspecified (5) Perforation of colon as colonoscopy complication Code(s): K63.1 - PERFORATION OF INTESTINE (NONTRAUMATIC); K91.71 - ACCIDENTAL PNCTR & LAC OF A DGSTV SYS ORG DUR DGSTV SYS PROC (6) Status post Sam procedure Code(s): Z93.3 - COLOSTOMY STATUS (7) Acute on chronic respiratory failure with hypoxia and hypercapnia Code(s): J96.21 - ACUTE AND CHRONIC RESPIRATORY FAILURE WITH HYPOXIA; J96.22 - ACUTE AND CHRONIC RESPIRATORY FAILURE WITH HYPERCAPNIA Assessment/Plan cta of chest: no CT evidence of pulmonary embolism, pulmonary vascular congestion with cardiomegaly, bilateral pleural effusion Head CT (June 14 2018): no acute pathology echo LV WNL pleural effusion severe TR RVSP elevated PVR 1. Sigmoid colonic perforation, fecal peritonitis, sepsis POD#4 post Lopez procedure 2. Acute hypercapneic and hypoxic respiratory failure referable to 3. Acute on chronic class II NYHA classification LV failure related to diastolic LV dysfunction 4. CAD angina pectoris 5. Severe TR with pulmonary HTN 6. Pleural effusions post right thoracentesis (transudate) 7. Persistent atrial fibrillation with periods of rapid ventricular response [id number] score of 5, not on A/C as patient has declined in past 8. Hypothyroidism 9. Carotid stenosis R>L planned for right CEA 10. Microcytic Anemia 11. Givens-sensitive E. Coli UTI 12. Hyponatremia, persistent P:1. Empiric abx per ID, taper stress-dosed steroids 2. Vent management per ICU, BD 3. Wean Levophed to maintain MAP>65 mmHg 4. May use IV Lopressor, amio or digoxin as needed for rate-control 5. DVT and GI prophylaxis 6. Considering the above noted [id number] score of 5 A/C recommended unless it is absolutely contraindicated, but patient has declined in past 7. Repeat CT abdomen/ pelvis for persistant leukocytosis R/O abscess
[2018-06-26] MEDS ORDERED: HYDROCORTISONE SOD SUCCINATE 100 MG/2 ML VIAL IVPB SCH (14:00)
--- NOTE | 2018-06-26 14:00 | PN ---
Progress Note, Physician History of Present Illness: Intubated Sedated on ventilator Temps down Afebrile Hypotensive on pressors WBC 19K Operative cultures Enterococcus, E. coli, yeast - Current Medication List Current Medications: Active Medications Albuterol/Ipratropium (Duoneb -) 1 amp NEB Q6H PRN PRN Reason: SHORTNESS OF BREATH Chlorhexidine Gluconate (Hibiclens For Decolonization -) 1 applic TP HS REED Last Admin: 06/25/18 21:47 Dose: 1 applic Chlorhexidine Gluconate (Peridex -) 15 ml MM BID REED Last Admin: 06/26/18 09:32 Dose: 15 ml Heparin Sodium (Porcine) (Heparin -) 5,000 unit SQ BID REED Last Admin: 06/26/18 09:30 Dose: 5,000 unit Hydrocortisone Sodium Succinate (Solu-Cortef -) 50 mg IVPB Q8H REED Last Admin: 06/26/18 13:19 Dose: 50 mg Metronidazole (Flagyl 500mg Premixed Ivpb -) 500 mg in 100 mls @ 100 mls/hr IVPB Q6H-IV REED Last Admin: 06/26/18 09:31 Dose: 100 mls/hr Propofol (Diprivan -) 1,000,000 mcg in 100 mls @ 1.894 mls/hr IVPB TITR REED; Protocol Last Admin: 06/25/18 09:07 Dose: 10 mcg/kg/min, 3.788 mls/hr Fentanyl 500 mcg/ Dextrose 100 mls @ 5 mls/hr IVPB TITR REED; Protocol Last Admin: 06/25/18 18:43 Dose: Not Given Piperacillin Sod/Tazobactam (Sod 3.375 gm/ Dextrose) 50 mls @ 100 mls/hr IVPB Q8H-IV REED; Protocol Last Admin: 06/26/18 09:32 Dose: 100 mls/hr Norepinephrine Bitartrate 16, (000 mcg/ Sodium Chloride) 1,000 mls @ 18.75 mls/ hr IV TITR REED; Protocol Last Titration: 06/26/18 06:09 Dose: 8 mcg/min, 30 mls/hr Caspofungin 50 mg/ Sodium (Chloride) 250 mls @ 250 mls/hr IVPB DAILY [facility] Last Admin: 06/26/18 09:32 Dose: 250 mls/hr Sodium Chloride (Normal Saline -) 1,000 mls @ 60 mls/hr IV ASDIR [facility] Last Admin: 06/25/18 13:54 Dose: 60 mls/hr Insulin Aspart (Novolog Vial Sliding Scale -) 1 vial SQ ACHS [facility]; Protocol Last Admin: 06/26/18 11:39 Dose: 2 units Levothyroxine Sodium (Synthroid Injection -) 44 mcg IVPUSH 0700 [facility] Last Admin: 06/26/18 06:08 Dose: 44 mcg Metoprolol Tartrate (Lopressor Injection -) 5 mg IVPUSH Q4H-IV [facility] Last Admin: 06/26/18 13:45 Dose: Not Given Mupirocin (Bactroban Ointment (For Decolonization) -) 1 applic NS BID [facility] Stop: 06/27/18 21:59 Last Admin: 06/26/18 09:31 Dose: 1 applic Ondansetron HCl (Zofran Injection) 4 mg IVPUSH Q6H PRN PRN Reason: NAUSEA Pantoprazole Sodium (Protonix Iv) 40 mg IVPUSH DAILY [facility] Last Admin: 06/26/18 09:32 Dose: 40 mg - Objective Vital Signs: Vital Signs Temperature 97.8 F 06/26/18 12:00 Pulse Rate 100 H 06/26/18 13:45 Respiratory Rate 16 06/26/18 12:00 Blood Pressure 100/58 06/26/18 13:45 O2 Sat by Pulse Oximetry (%) 96 06/26/18 11:21 Constitutional: Yes: No Distress Cardiovascular: Yes: Regular Rate and Rhythm, S1, S2 Respiratory: Yes: CTA Bilaterally Gastrointestinal: Yes: Normal Bowel Sounds, Soft, Other (Surgical wound packed +ostomy) Edema: Yes Labs: CBC, BMP 06/26/18 05:30 06/26/18 05:30 INR, PTT INR 1.27 (0.82-1.09) H 06/12/18 07:47 Assessment/Plan POD #4 Lopez procedure Colonic perforation, fecal peritonitis Sepsis/ septic shock secondary to GI source Operative c/s Enterococcus, E coli, Yeast Pulmonary vascular congestion ? pneumonia Continue empiric zosyn/ flagyl / cancidas ICU monitoring Repeat CT abdomen/ pelvis for persistant leukocytosis R/O abscess Prognosis guarded
[2018-06-26] MEDS: HYDROCORTISONE SOD SUCCINATE 100 MG/2 ML VIAL IVPUSH SCH ×2 (15:37→19:09)
--- NOTE | 2018-06-26 16:17 | PATH ---
Surgical Pathology Report Patient Name: JEN THOMASON [facility]. Rec. 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 SURGICAL MARGINS ARE VIABLE. Electronically Signed Stefanie Mallory M.D. Gross Description Received in formalin labeled "rectosigmoid colon," is a 14 cm in length portion of bowel with 2 open mucosal margins and moderate attached fat. The serosa is wisdom-mayorga with a large defect, consistent with a perforation site. The lumen contains green fecal material. The mucosa displays focal inflammation surrounding the perforation site. The remaining mucosa is wisdom with normal folds. No mucosal masses are identified. Sectioning reveals focal uncomplicated diverticula. Controls Operator Molded Goods sections are submitted in 6 cassettes as follows: 8-9-vksizaxxydls open mucosal margins; 3-perforation site; 0-4-whodputumvt; 6-chain sales representative uninvolved mucosa. 06/23/2018 saudi06/23/2018
[2018-06-26] MEDS ORDERED: fentaNYL CITRATE 250 MCG/5 ML VIAL ONE (17:02)
[2018-06-26] MEDS: FENTANYL INJECTION 500 MCG in DEXTROSE 5%-WATER - 90 ML IVPB SCH (17:22)
[2018-06-26] MEDS: PROPOFOL 1,000,000 MCG/100 ML VIAL IVPB SCH (17:23)
[2018-06-26] MEDS: SODIUM CHLORIDE 1,000 ML IV SCH (17:24)
--- NOTE | 2018-06-26 19:13 | PN ---
Physical Exam: SUBJECTIVE: Patient seen and examined this am and evening in icu. Pt remains sedated and intubated. Spoke with [id number] this evening on pt's status. OBJECTIVE: Vital Signs Period Temp Pulse Resp BP Sys/De La O Pulse Ox Last 24 Hr 97.4 F-99.4 F 93-117 12-19 90-130/41-68 93-96 GENERAL: Intubated, NG Tube. HEAD: NC/AT NECK: Trachea midline. No JVD. LUNGS: B/L rhonchi. HEART: Irregular. ABDOMEN: Soft. Colostomy present. [place], stool overlying. EXTREMITIES: Feet cool to touch, scaly, onycholysis NEUROLOGICAL: N/A SKIN: dry, pallor. Laboratory Results - last 24 hr 06/25/18 06/25/18 06/26/18 17:00 21:53 05:23 WBC RBC Hgb Hct MCV MCH MCHC RDW Plt Count MPV Absolute Neuts (auto) Neutrophils % Neutrophils % (Manual) Band Neutrophils % Lymphocytes % Lymphocytes % (Manual) Monocytes % Monocytes % (Manual) Eosinophils % Eosinophils % (Manual) Basophils % Basophils % (Manual) Myelocytes % (Man) Promyelocytes % (Man) Blast Cells % (Manual) Nucleated RBC % Metamyelocytes Hypochromia Platelet Estimate Polychromasia Poikilocytosis Anisocytosis Microcytosis Macrocytosis Tang Cells Sodium Potassium Chloride Carbon Dioxide Anion Gap BUN Creatinine Creat Clearance w eGFR POC Glucometer [id number] [phone] Random Glucose Calcium Phosphorus Magnesium Total Bilirubin AST ALT Alkaline Phosphatase Total Protein Albumin 06/26/18 06/26/18 06/26/18 05:30 05:30 11:36 WBC 19.9 H RBC 4.36 Hgb 10.6 L Hct 32.6 MCV 74.9 L MCH 24.2 L MCHC 32.4 RDW 30.2 H Plt Count 331 MPV 9.0 Absolute Neuts (auto) 18.6 Neutrophils % 93.6 H Neutrophils % (Manual) 98.0 H Band Neutrophils % 1.0 Lymphocytes % 1.4 L Lymphocytes % (Manual) 0.0 L Monocytes % 4.9 Monocytes % (Manual) 1 L Eosinophils % 0.1 D Eosinophils % (Manual) 0.0 D Basophils % 0.0 Basophils % (Manual) 0.0 Myelocytes % (Man) 0 Promyelocytes % (Man) 0 Blast Cells % (Manual) 0 Nucleated RBC % 0 Metamyelocytes 0 D Hypochromia 0 Platelet Estimate Normal Polychromasia 1+ Poikilocytosis 0 Anisocytosis 1+ Microcytosis 1+ Macrocytosis 1+ [place] Cells 1+ Sodium 131 L Potassium 3.8 Chloride 98 Carbon Dioxide 26 Anion Gap 7 L BUN 19 H Creatinine 0.5 L Creat Clearance w eGFR > 60 POC Glucometer [phone] Random Glucose 154 H Calcium 7.6 L Phosphorus 1.8 L Magnesium 2.2 Total Bilirubin 0.8 AST 12 L ALT 13 Alkaline Phosphatase 95 D Total Protein 4.6 L Albumin 1.5 L 06/26/18 16:41 WBC RBC Hgb Hct MCV MCH MCHC RDW Plt Count MPV Absolute Neuts (auto) Neutrophils % Neutrophils % (Manual) Band Neutrophils % Lymphocytes % Lymphocytes % (Manual) Monocytes % Monocytes % (Manual) Eosinophils % Eosinophils % (Manual) Basophils % Basophils % (Manual) Myelocytes % (Man) Promyelocytes % (Man) Blast Cells % (Manual) Nucleated RBC % Metamyelocytes Hypochromia Platelet Estimate Polychromasia Poikilocytosis Anisocytosis Microcytosis Macrocytosis Tang Cells Sodium Potassium Chloride Carbon Dioxide Anion Gap BUN Creatinine Creat Clearance w eGFR POC Glucometer [phone] Random Glucose Calcium Phosphorus Magnesium Total Bilirubin AST ALT Alkaline Phosphatase Total Protein Albumin Active Medications Generic Name Dose Route Start Last Admin Trade Name Freq PRN Reason Stop Dose Admin Albuterol/Ipratropium 1 amp 06/22/18 17:53 Duoneb - NEB Q6H PRN SHORTNESS OF BREATH Chlorhexidine Gluconate 1 applic 06/22/18 22:00 06/25/18 21:47 Hibiclens For Decolonization - TP 1 applic HS REED Administration Chlorhexidine Gluconate 15 ml 06/23/18 10:00 06/26/18 09:32 Peridex - MM 15 ml BID REED Administration Heparin Sodium (Porcine) 5,000 unit 06/22/18 22:00 06/26/18 09:30 Heparin - SQ 5,000 unit BID REED Administration Hydrocortisone Sodium Succinate 25 mg 06/26/18 14:38 06/26/18 15:37 Solu-Cortef - IVPUSH Not Given Q8H-IV REED Metronidazole 500 mg in 100 mls @ 100 mls/hr 06/22/18 21:00 06/26/18 15:44 Flagyl 500mg Premixed Ivpb - IVPB 100 mls/hr Q6H-IV REED Administration Propofol 1,000,000 mcg in 100 mls @ 1.894 mls/hr 06/22/18 18:15 06/26/18 17: 23 Diprivan - IVPB 10 mcg/kg/min TITR REED 3.788 mls/hr Administration Protocol 5 MCG/KG/MIN Fentanyl 500 mcg/ Dextrose 100 mls @ 5 mls/hr 06/22/18 18:15 06/26/18 17:22 IVPB 5 mls/hr TITR REED Administration Protocol 25 MCG/HR Piperacillin Sod/Tazobactam 50 mls @ 100 mls/hr 06/23/18 02:00 06/26/18 17:22 Sod 3.375 gm/ Dextrose IVPB 100 mls/hr Q8H-IV REED Administration Protocol Norepinephrine Bitartrate 16, 1,000 mls @ 18.75 mls/hr 06/25/18 06:40 14:00 000 mcg/ Sodium Chloride IV 4 mcg/min TITR REED 15 mls/hr Titration Protocol 5 MCG/MIN Caspofungin 50 mg/ Sodium 250 mls @ 250 mls/hr 06/26/18 10:00 06/26/18 09:32 Chloride IVPB 250 mls/hr DAILY REED Administration Sodium Chloride 1,000 mls @ 60 mls/hr 06/25/18 12:05 06/26/18 17:24 Normal Saline - IV 60 mls/hr ASDIR REED Administration Insulin Aspart 1 vial 06/22/18 22:00 06/26/18 17:21 Novolog Vial Sliding Scale - SQ 4 units ACHS REED Administration Protocol Levothyroxine Sodium 44 mcg 06/23/18 07:00 06/26/18 06:08 Synthroid Injection - IVPUSH 44 mcg 0700 REED Administration Metoprolol Tartrate 5 mg 06/22/18 18:00 06/26/18 17:21 Lopressor Injection - IVPUSH Not Given Q4H-IV REED Mupirocin 1 applic 06/22/18 22:00 06/26/18 09:31 Bactroban Ointment (For Decolonization) - NS 06/27/18 21:59 1 applic BID REED Administration Ondansetron HCl 4 mg 06/22/18 17:53 Zofran Injection IVPUSH Q6H PRN NAUSEA Pantoprazole Sodium 40 mg 06/23/18 10:00 06/26/18 09:32 Protonix Iv IVPUSH 40 mg DAILY REED Administration ASSESSMENT/PLAN: Ms. Singh is an 87 y/o lady with a past medical history of A. fib (no AC), CVA , breast cancer, hypothyroidism, iron deficiency anemia, and DM. Pt has a h/o occult GI bleeding requiring blood transfusions. Pt has had a recent development of severe microcytic anemia and heme + stool. Has been on aspirin chronically for A fib. Has not had any specific GI complaints and has refused GI workups in past. Pt was referred to [facility] for a colonoscopy to r/o any GI bleed. Pt developed a perforation of her rectosigmoid colon s/p colonoscopy. Dr Lora, General Surgeon, was notified and pt was transfered from [facility] [place] to [facility]. An exploratory laparotomy was performed where surgical resection of the rectosigmoid colon with closure of the anorectal stump and formation of an end colostomy Neuro: -Intubated and Sedated. Propofol and Fentanyl -Solu-cortef -50 mg IVPB Q6H -Norepinephrine Bitartrate 8- 18.75 mls/hr G.I: -Colonic perforation, fecal peritonitis -S/P Lopez procedure POD #4 -Continue empiric zosyn/ flagyl per Dr Saini, ID -Caspofungin -ICU monitoring -Protonix [address] Lora today, will start enteral feeds. TPN decided against. PULM: -Duoneb 1 AMP NEB Q6H -Solu-Cortef 25 mg IVPB q8h -Chest physiotherapy Chest XRAY 06/26/18- Complete white out left lung field. AFIB: Lopressor Injection 5 mg IVPUSH Q4H Home Meds- ASA 325, Cardizem 180 PO Daily, Tenormin 50 MG PO Daily. Per Cardiology Dr Carrizales: May use amio or digoxin as needed for rate-control while hypotensive FEN Normal Saline 1,000 mls @ 83 mls/hr Monitor Electrolytes NPO DVT ppx: 5,000 unit SQ BID Dispo- continue to monitor in icu. Visit type - Emergency Visit Emergency Visit: Yes ED Registration Date: 06/12/18 Care time: The patient presented to the Emergency Department on the above date and was hospitalized for further evaluation of their emergent condition. - New Patient This patient is new to me today: No - Critical Care Critical Care patient: Yes Total Critical Care Time (in minutes): 35 Critical Care Statement: The care of this patient involved high complexity decision making to prevent further life threatening deterioration of the patient 's condition and/or to evaluate & treat vital organ system(s) failure or risk of failure.
--- NOTE | 2018-06-26 19:29 | PN ---
Physical Exam: SUBJECTIVE: Patient seen and examined at bedside in ICU. OBJECTIVE: Vital Signs Period Temp Pulse Resp BP Sys/De La O Pulse Ox Last 24 Hr 97.4 F-99.4 F 93-117 12-19 90-130/41-68 93-96 GENERAL: The patient is intubated, sedated. LUNGS: Mechanical breath sounds HEART: Regular rate and rhythm, S1, S2 ABDOMEN: Soft, nontender, nondistended; colostomy, surrounding skin intact EXTREMITIES: 2+ pulses, warm, well-perfused, 1+ b/l LE edema SKIN: Warm, dry Laboratory Results - last 24 hr 06/25/18 06/25/18 06/26/18 17:00 21:53 05:23 WBC RBC Hgb Hct MCV MCH MCHC RDW Plt Count MPV Absolute Neuts (auto) Neutrophils % Neutrophils % (Manual) Band Neutrophils % Lymphocytes % Lymphocytes % (Manual) Monocytes % Monocytes % (Manual) Eosinophils % Eosinophils % (Manual) Basophils % Basophils % (Manual) Myelocytes % (Man) Promyelocytes % (Man) Blast Cells % (Manual) Nucleated RBC % Metamyelocytes Hypochromia Platelet Estimate Polychromasia Poikilocytosis Anisocytosis Microcytosis Macrocytosis Tang Cells Sodium Potassium Chloride Carbon Dioxide Anion Gap BUN Creatinine Creat Clearance w eGFR POC Glucometer [phone] Random Glucose Calcium Phosphorus Magnesium Total Bilirubin AST ALT Alkaline Phosphatase Total Protein Albumin 06/26/18 06/26/18 06/26/18 05:30 05:30 11:36 WBC 19.9 H RBC 4.36 Hgb 10.6 L Hct 32.6 MCV 74.9 L MCH 24.2 L MCHC 32.4 RDW 30.2 H Plt Count 331 MPV 9.0 Absolute Neuts (auto) 18.6 Neutrophils % 93.6 H Neutrophils % (Manual) 98.0 H Band Neutrophils % 1.0 Lymphocytes % 1.4 L Lymphocytes % (Manual) 0.0 L Monocytes % 4.9 Monocytes % (Manual) 1 L Eosinophils % 0.1 D Eosinophils % (Manual) 0.0 D Basophils % 0.0 Basophils % (Manual) 0.0 Myelocytes % (Man) 0 Promyelocytes % (Man) 0 Blast Cells % (Manual) 0 Nucleated RBC % 0 Metamyelocytes 0 D Hypochromia 0 Platelet Estimate Normal Polychromasia 1+ Poikilocytosis 0 Anisocytosis 1+ Microcytosis 1+ Macrocytosis 1+ Hatfield Cells 1+ Sodium 131 L Potassium 3.8 Chloride 98 Carbon Dioxide 26 Anion Gap 7 L BUN 19 H Creatinine 0.5 L Creat Clearance w eGFR > 60 POC Glucometer [phone] Random Glucose 154 H Calcium 7.6 L Phosphorus 1.8 L Magnesium 2.2 Total Bilirubin 0.8 AST 12 L ALT 13 Alkaline Phosphatase 95 D Total Protein 4.6 L Albumin 1.5 L 06/26/18 16:41 WBC RBC Hgb Hct MCV MCH MCHC RDW Plt Count MPV Absolute Neuts (auto) Neutrophils % Neutrophils % (Manual) Band Neutrophils % Lymphocytes % Lymphocytes % (Manual) Monocytes % Monocytes % (Manual) Eosinophils % Eosinophils % (Manual) Basophils % Basophils % (Manual) Myelocytes % (Man) Promyelocytes % (Man) Blast Cells % (Manual) Nucleated RBC % Metamyelocytes Hypochromia Platelet Estimate Polychromasia Poikilocytosis Anisocytosis Microcytosis Macrocytosis [place] Cells Sodium Potassium Chloride Carbon Dioxide Anion Gap BUN Creatinine Creat Clearance w eGFR POC Glucometer [phone] Random Glucose Calcium Phosphorus Magnesium Total Bilirubin AST ALT Alkaline Phosphatase Total Protein Albumin Active Medications Generic Name Dose Route Start Last Admin Trade Name Freq PRN Reason Stop Dose Admin Albuterol/Ipratropium 1 amp 06/22/18 17:53 Duoneb - NEB Q6H PRN SHORTNESS OF BREATH Chlorhexidine Gluconate 1 applic 06/22/18 22:00 06/25/18 21:47 Hibiclens For Decolonization - TP 1 applic HS REED Administration Chlorhexidine Gluconate 15 ml 06/23/18 10:00 06/26/18 09:32 Peridex - MM 15 ml BID REED Administration Heparin Sodium (Porcine) 5,000 unit 06/22/18 22:00 06/26/18 09:30 Heparin - SQ 5,000 unit BID REED Administration Hydrocortisone Sodium Succinate 25 mg 06/26/18 14:38 06/26/18 19:09 Solu-Cortef - IVPUSH Not Given Q8H-IV REED Metronidazole 500 mg in 100 mls @ 100 mls/hr 06/22/18 21:00 06/26/18 15:44 Flagyl 500mg Premixed Ivpb - IVPB 100 mls/hr Q6H-IV REED Administration Propofol 1,000,000 mcg in 100 mls @ 1.894 mls/hr 06/22/18 18:15 06/26/18 17: 23 Diprivan - IVPB 10 mcg/kg/min TITR REED 3.788 mls/hr Administration Protocol 5 MCG/KG/MIN Fentanyl 500 mcg/ Dextrose 100 mls @ 5 mls/hr 06/22/18 18:15 06/26/18 17:22 IVPB 5 mls/hr TITR REED Administration Protocol 25 MCG/HR Piperacillin Sod/Tazobactam 50 mls @ 100 mls/hr 06/23/18 02:00 06/26/18 17:22 Sod 3.375 gm/ Dextrose IVPB 100 mls/hr Q8H-IV REED Administration Protocol Norepinephrine Bitartrate 16, 1,000 mls @ 18.75 mls/hr 06/25/18 06:40 14:00 000 mcg/ Sodium Chloride IV 4 mcg/min TITR REED 15 mls/hr Titration Protocol 5 MCG/MIN Caspofungin 50 mg/ Sodium 250 mls @ 250 mls/hr 06/26/18 10:00 06/26/18 09:32 Chloride IVPB 250 mls/hr DAILY REED Administration Sodium Chloride 1,000 mls @ 60 mls/hr 06/25/18 12:05 06/26/18 17:24 Normal Saline - IV 60 mls/hr ASDIR REED Administration Insulin Aspart 1 vial 06/22/18 22:00 06/26/18 17:21 Novolog Vial Sliding Scale - SQ 4 units ACHS REED Administration Protocol Levothyroxine Sodium 44 mcg 06/23/18 07:00 06/26/18 06:08 Synthroid Injection - IVPUSH 44 mcg 0700 REED Administration Metoprolol Tartrate 5 mg 06/22/18 18:00 06/26/18 17:21 Lopressor Injection - IVPUSH Not Given Q4H-IV REED Mupirocin 1 applic 06/22/18 22:00 06/26/18 09:31 Bactroban Ointment (For Decolonization) - NS 06/27/18 21:59 1 applic BID REED Administration Ondansetron HCl 4 mg 06/22/18 17:53 Zofran Injection IVPUSH Q6H PRN NAUSEA Pantoprazole Sodium 40 mg 06/23/18 10:00 06/26/18 09:32 Protonix Iv IVPUSH 40 mg DAILY REED Administration ASSESSMENT/PLAN: 87 year-old female with a PMH significant for CVA, afib not on anti-coagulation , diastolic heart failure, anemia, diet-controlled diabetes, breast cancer, and hypothyroidism. Admitted for HF exacerbation, anemia, and UTI. Hospital course complicated by sigmoid colonic perforation during colonoscopy, s/p Lopez procedure. Sigmoid colonic perforation, fecal peritonitis, sepsis s/p Lopez procedure --metronidazole, Zosyn, caspofungin --on pressors Acute hypercapnic and hypoxic respiratory failure --intubated Acute on chronic diastolic heart failure --Echo: LV WNL; pleural effusion; severe TR; RVSP elevated PVR Atrial fibrillation --rate well-controlled, continue diltiazem and atenolol --not on anticoagulation patient's preference Bilateral pneumonia Bilateral pleural effusions s/p thoracentesis --06/16 CXR: fluid on right is improved but left base has become dense; consider repeat CT chest --antibiotics as above Carotid artery stenosis --significant bilateral disease Hypothyroidism --continue levothyroxine NIDDM --Novolog sliding scale coverage E. coli UTI --antibiotics as above DVT prophylaxis: subq heparin Dispo: continues to require ICU level care. Visit type - Emergency Visit Emergency Visit: Yes ED Registration Date: 06/12/18 Care time: The patient presented to the Emergency Department on the above date and was hospitalized for further evaluation of their emergent condition. - New Patient This patient is new to me today: No - Critical Care Critical Care patient: Yes Total Critical Care Time (in minutes): 35 Critical Care Statement: The care of this patient involved high complexity decision making to prevent further life threatening deterioration of the patient 's condition and/or to evaluate & treat vital organ system(s) failure or risk of failure.
--- NOTE | 2018-06-26 20:43 | OP ---
DATE OF OPERATION: 06/22/2018 PREOPERATIVE DIAGNOSIS: Iatrogenic perforation of the colon. POSTOPERATIVE DIAGNOSIS: Iatrogenic perforation of the rectosigmoid. PROCEDURE: Sam procedure. SURGEON: Frederick Lora MD INTEGRITY CONSULTANT: Kaycee Simmons PA-C FINDINGS: There was perforation at the rectosigmoid junction with gross fecal peritonitis, a large amount of stool burden in the colon. There were adhesions from previous surgery. The rest of the findings were unremarkable. DESCRIPTION OF PROCEDURE: The patient was placed on the operating table in the supine position, and after the induction of general anesthesia and the placement of sequential compression devices on the patient's lower extremities and a Atwood catheter, the abdomen was prepped with ChloraPrep and draped in sterile fashion. The peritoneal cavity was then entered through a midline incision, and the previously noted findings were observed. Copious irrigation was carried out to suction out all the fecal effluent. Then, a point distal to the perforation at the rectosigmoid junction was identified, where an opening was made in the mesentery, and a TA stapling device fired across the distal rectosigmoid. Gross spillage from the iatrogenic colotomy was controlled with Venessa clamps, temporary closing the colotomy. Blunt and sharp dissection was used to dissect the adhesed and redundant rectosigmoid off the sacral promontory and from previous adhesions from a hysterectomy. Next, a proximal point to the colotomy was identified, and there again, a window was made in the mesentery and the TA stapling device fired. Next, the mesentery of the rectosigmoid was serially divided using the LigaSure device. The specimen was then removed and sent for pathological examination. Copious irrigation was again carried out using sterile saline. The sigmoid and left colon were then mobilized along the white line of Toldt up to the splenic flexure. The splenic flexure was not taken down. An opening was made in the abdominal wall midway between the umbilicus and the left anterior-superior iliac spine to accommodate the colon for the colostomy. The distal transected colon was then brought through the opening in the abdominal wall and temporarily affixed there with Venessa clamps. Again, copious irrigation was carried out with 6 L of normal saline until the effluent was as clear as possible. [facility] through a right lower quadrant stab wound and the drain placed in the sacral hollow and secured to the skin with 2-0 silk suture. The abdominal cavity was then closed using continuous 0 loop Maxon suture. The subcutaneous tissue was irrigated, and the skin edges around the umbilicus approximated with surgical cassie. The wound was then packed with 1-inch Iodoform gauze, followed by a sterile towel. Next, the suture line of the colostomy was excised and the colostomy matured using 3-0 Vicryl sutures. A colostomy flange and ostomy bag were placed, and then, sterile dressings were placed over the midline wound and the procedure terminated at this point. Then, the patient was transferred to the ICU in stable condition, awake and alert but intubated. ESTIMATED BLOOD LOSS: 250 mL REPLACEMENTS: Crystalloid. DRAINS: One Hayden travisp. SPECIMEN: Rectosigmoid to Pathology. I, Frederick Lora MD, was physically present in the operating room from the time the patient was placed on the operating table until she was transferred to the intensive care unit in critical but stable condition. MD IRENE Gerard/[id number] MTDD
[2018-06-26] MEDS: CHLORHEXIDINE GLUCONATE 4% CLEANSER FOR DECOLONIZATION TP SCH (21:29)
[2018-06-27] MEDS ORDERED: DEXTROSE 5%-WATER - 50 ML IVPB ONE ×3 (02:44→16:27)
[2018-06-27] MEDS ORDERED: PIPERACILLIN/TAZOBACTAM 3.375 GM VIAL IVPB ONE ×3 (02:44→16:27)
[2018-06-27] MEDS: METOPROLOL TARTRATE 5 MG/5 ML VIAL IVPUSH SCH ×6 (02:52→22:00)
[2018-06-27] MEDS: HYDROCORTISONE SOD SUCCINATE 100 MG/2 ML VIAL IVPUSH SCH ×3 (02:57→21:57)
[2018-06-27] MEDS: PIPERACILLIN/TAZOB 3.375 GM 3.375 GM in DEXTROSE 5%-WATER - 50 ML IVPB SCH ×3 (02:57→17:35)
[2018-06-27] MEDS: INSULIN SLIDING SCALE (NOVOLOG) 1 VIAL SQ SCH ×4 (06:14→22:01)
[2018-06-27] MEDS: NOREPINEPHRINE BITARTRATE 16,000 MCG in SODIUM CHLORIDE 0.45% 984 ML IV SCH (06:14)
[2018-06-27] MEDS: LEVOTHYROXINE SODIUM 100 MCG VIAL IVPUSH SCH (06:15)
[2018-06-27 06:23] LABS: EOS % 0.3 % (0-4.5); HEMATOCRIT 32.8 % (32.4-45.2); HEMOGLOBIN 10.6 GM/dL (10.7-15.3); LYMPH % 2.1 % (8-40); MCH 24.1 pg (25.7-33.7); MCHC 32.3 g/dl (32.0-36.0); MEAN CELL VOLUME 74.8 fl (80-96); MEAN PLT VOLUME 8.9 fl (7.5-11.1); MONO % 7.8 % (3.8-10.2); NEUT % 89.8 % (42.8-82.8); PLATELET COUNT 361 K/MM3 (134-434); RBC 4.39 M/mm3 (3.60-5.2); RDW 30.2 % (11.6-15.6); WHITE BLOOD COUNT 14.5 K/mm3 (4.0-10.0)
[2018-06-27 06:50] LABS: CHLORIDE 102 mmol/L (98-107); POTASSIUM 3.5 mmol/L (3.5-5.1); SODIUM 134 mmol/L (136-145)
--- NOTE | 2018-06-27 06:54 | PN ---
Progress Note (short form) - Note Progress Note: Chief Complaint: Events noted, notes reviewed, remains sedated and intubated, on pressors (Norepinephrine), atrial fibrillation persists History of Present Illness: Seen and examined in the ICU. Events noted, notes reviewed, remains sedated and intubated, on pressors (Norepinephrine), atrial fibrillation persists Patient is post recto-sigmoid perforation, post Lopez's procedure with fecal peritonitis, POD#5 Chest CTA: no CT evidence of pulmonary embolism, pulmonary vascular congestion with cardiomegaly, bilateral pleural effusion Echocardiography revealed normal LV size and function, trace pericardial effusion, pleural effusion, mild to moderate MR, severe TR, RVSP 30-40 mmHg - Current Medication List Current Medications: Current Medications Albuterol/Ipratropium (Duoneb -) 1 amp NEB Q6H PRN PRN Reason: SHORTNESS OF BREATH Chlorhexidine Gluconate (Hibiclens For Decolonization -) 1 applic TP HS REED Last Admin: 06/26/18 21:29 Dose: 1 applic Chlorhexidine Gluconate (Peridex -) 15 ml MM BID REED Last Admin: 06/26/18 21:29 Dose: 15 ml Heparin Sodium (Porcine) (Heparin -) 5,000 unit SQ BID REED Last Admin: 06/26/18 21:29 Dose: 5,000 unit Hydrocortisone Sodium Succinate (Solu-Cortef -) 25 mg IVPUSH Q8H-IV REED Last Admin: 06/27/18 02:57 Dose: 25 mg Metronidazole (Flagyl 500mg Premixed Ivpb -) 500 mg in 100 mls @ 100 mls/hr IVPB Q6H-IV REED Last Admin: 06/27/18 02:58 Dose: 100 mls/hr Propofol (Diprivan -) 1,000,000 mcg in 100 mls @ 1.894 mls/hr IVPB TITR REED; Protocol Last Admin: 06/26/18 17:23 Dose: 10 mcg/kg/min, 3.788 mls/hr Fentanyl 500 mcg/ Dextrose 100 mls @ 5 mls/hr IVPB TITR REED; Protocol Last Admin: 06/26/18 17:22 Dose: 5 mls/hr Piperacillin Sod/Tazobactam (Sod 3.375 gm/ Dextrose) 50 mls @ 100 mls/hr IVPB Q8H-IV REED; Protocol Last Admin: 06/27/18 02:57 Dose: 100 mls/hr Norepinephrine Bitartrate 16, (000 mcg/ Sodium Chloride) 1,000 mls @ 18.75 mls/ hr IV TITR REED; Protocol Last Admin: 06/27/18 06:14 Dose: 4 mcg/min, 15 mls/hr Caspofungin 50 mg/ Sodium (Chloride) 250 mls @ 250 mls/hr IVPB DAILY [facility] Last Admin: 06/26/18 09:32 Dose: 250 mls/hr Sodium Chloride (Normal Saline -) 1,000 mls @ 60 mls/hr IV ASDIR REED Last Admin: 06/26/18 17:24 Dose: 60 mls/hr Insulin Aspart (Novolog Vial Sliding Scale -) 1 vial SQ ACHS [facility]; Protocol Last Admin: 06/27/18 06:14 Dose: 2 units Levothyroxine Sodium (Synthroid Injection -) 44 mcg IVPUSH 0700 [facility] Last Admin: 06/27/18 06:15 Dose: 44 mcg Metoprolol Tartrate (Lopressor Injection -) 5 mg IVPUSH Q4H-IV REED Last Admin: 06/27/18 06:14 Dose: Not Given Mupirocin (Bactroban Ointment (For Decolonization) -) 1 applic NS BID [facility] Stop: 06/27/18 21:59 Last Admin: 06/26/18 21:28 Dose: 1 applic Ondansetron HCl (Zofran Injection) 4 mg IVPUSH Q6H PRN PRN Reason: NAUSEA Pantoprazole Sodium (Protonix Iv) 40 mg IVPUSH DAILY [facility] Last Admin: 06/26/18 09:32 Dose: 40 mg Review of Systems: Unable to obtain - Objective Vital Signs: Last Vital Signs Temp Pulse Resp BP Pulse Ox 98.0 F 112 H 15 112/69 96 06/27/18 06:00 06/27/18 06:14 06/27/18 06:50 06/27/18 06:14 06/26/18 20:16 Intake & Output 06/24/18 06/25/18 06/26/18 06/27/18 23:59 23:59 23:59 23:59 Intake Total 4085.4 3851.6 2431.5 680.8 Output Total 1350 1550 2070 500 Balance 2735.4 2301.6 361.5 180.8 Weight 154 lb 5.177 oz 162 lb 11.218 oz 166 lb 0.129 oz 166 lb 10.711 oz Neck: Supple Negative JVD No Bruit Cardiovascular: S1 S2 Irregularly Irregular Respiratory: Bilateral Scattered Rhonchi Gastrointestinal: Soft Hypoactive Bowel Sounds Ext: No Edema Labs: CBC, BMP 06/27/18 05:30 INR, PTT INR 1.27 (0.82-1.09) H 06/12/18 07:47 Assessment/Plan ASSESSMENT: 1. Colonic perforation, fecal peritonitis, sepsis POD#5 post Lopez procedure 2. Acute hypercapneic respiratory failure referable to 3. Acute on chronic class II-III NYHA classification LV failure related to diastolic LV dysfunction 4. CAD angina pectoris 5. Severe TR with pulmonary HTN 6. Pleural effusions post right thoracentesis (transudate) 7. Persistent atrial fibrillation with periods of rapid ventricular response [id number] score of 5, not on A/C as patient has declined in past 8. Hypothyroidism 9. Carotid stenosis 10. Anemia 11. E. Coli UTI 12. Hyponatremia PLAN: 1. Antibiotics as per the primary team/ID 2. Vent management as per ICU team 3. Titrate pressors to maintain MAP>65 mmHg, attempt to wean off as tolerated 4. B-Blockers to assist with rate control hemodynamics permitting 5. Diuretics/Lasix as needed with caution in view of the above noted Hyponatremia (Hyponatremia correction) 6. As outlined in prior notes considering the above noted [id number] score of 5 A/C recommended unless it is absolutely contraindicated Condition remains critical, overall poor prognosis Taty Rodriguez MD
[2018-06-27 06:56] LABS: ALBUMIN 1.4 g/dl (3.4-5.0); ALK PHOS 101 U/L (45-117); ANION GAP 7 (8-16); BILIRUBIN,TOTAL 0.8 mg/dL (0.2-1.0); BLOOD UREA NITROGEN 18 mg/dL (7-18); CALCIUM 7.9 mg/dL (8.5-10.1); CO2 25 mmol/L (21-32); CREATININE 0.5 mg/dL (0.55-1.02); GLUCOSE,RANDOM 153 mg/dL (74-106); MAGNESIUM 2.2 mg/dL (1.8-2.4); PHOSPHOROUS 1.5 mg/dL (2.5-4.9); SGOT/AST 12 U/L (15-37); SGPT/ALT 13 U/L (12-78); TOT PROT 4.5 g/dl (6.4-8.2)
[2018-06-27] MEDS ORDERED: INSULIN (NOVOLOG) ASPART 100 UNITS/ML 10ML VIAL ONE ×4 (08:26→11:35)
[2018-06-27] MEDS: PANTOPRAZOLE SODIUM 40 MG VIAL IVPUSH SCH (09:05)
[2018-06-27] MEDS: MUPIROCIN 2% TOPICAL OINTMENT FOR DECOLONIZATION NS SCH (09:05)
--- NOTE | 2018-06-27 09:12 | PN ---
Progress Note (short form) - Note Progress Note: Attending Surgeon POD #5 In ICU; vented and sedated VSS AF BP 120's systolic on tapering pressor dose and tapering steroid dose abdomen-soft; flat and non tympanitic; wound open and c/d/i and granulating; ostomy viable and functioning extremities-edematous WBC 14.5; lytes and renal function good and UO good IMP: improving PLAN: Continue ICU care; wean from vent and pressors; continue LWC; would not get CT a/p at this time; will f/u. Frederick Lora MD FACS.
[2018-06-27] MEDS: HEPARIN NA (PORCINE) 5,000 UNITS/ML 1ML VIAL SQ SCH ×2 (09:22→21:58)
[2018-06-27] MEDS: CHLORHEXIDINE GLUCONATE 0.12% 15ML CUP MM SCH ×2 (09:22→22:01)
--- NOTE | 2018-06-27 10:25 | PN ---
Progress Note (short form) - Note Progress Note: Subjective: The patient remains intubated, sedated. Spontaneous movement in all 4 extremities observed Remains on pressors Chest X-ray today with complete opacification of left hemithorax. Large right pleural effusion Current Medications Generic Name Dose Route Start Last Admin Trade Name Rajendraq PRN Reason Stop Dose Admin Albuterol/Ipratropium 1 amp 06/22/18 17:53 Duoneb - NEB Q6H PRN SHORTNESS OF BREATH Chlorhexidine Gluconate 1 applic 06/22/18 22:00 06/26/18 21:29 Hibiclens For Decolonization - TP 1 applic HS REED Administration Chlorhexidine Gluconate 15 ml 06/23/18 10:00 06/27/18 09:22 Peridex - MM 15 ml BID REED Administration Heparin Sodium (Porcine) 5,000 unit 06/22/18 22:00 06/27/18 09:22 Heparin - SQ 5,000 unit BID REED Administration Hydrocortisone Sodium Succinate 25 mg 06/26/18 14:38 06/27/18 09:05 Solu-Cortef - IVPUSH 25 mg Q8H-IV REED Administration Metronidazole 500 mg in 100 mls @ 100 mls/hr 06/22/18 21:00 06/27/18 08:14 Flagyl 500mg Premixed Ivpb - IVPB 100 mls/hr Q6H-IV REED Administration Propofol 1,000,000 mcg in 100 mls @ 1.894 mls/hr 06/22/18 18:15 06/26/18 17: 23 Diprivan - IVPB 10 mcg/kg/min TITR REED 3.788 mls/hr Administration Protocol 5 MCG/KG/MIN Fentanyl 500 mcg/ Dextrose 100 mls @ 5 mls/hr 06/22/18 18:15 06/26/18 17:22 IVPB 5 mls/hr TITR REED Administration Protocol 25 MCG/HR Piperacillin Sod/Tazobactam 50 mls @ 100 mls/hr 06/23/18 02:00 06/27/18 09:23 Sod 3.375 gm/ Dextrose IVPB 100 mls/hr Q8H-IV REED Administration Protocol Norepinephrine Bitartrate 16, 1,000 mls @ 18.75 mls/hr 06/25/18 06:40 06:14 000 mcg/ Sodium Chloride IV 4 mcg/min TITR REED 15 mls/hr Administration Protocol 5 MCG/MIN Caspofungin 50 mg/ Sodium 250 mls @ 250 mls/hr 06/26/18 10:00 06/26/18 09:32 Chloride IVPB 250 mls/hr DAILY REED Administration Sodium Chloride 1,000 mls @ 60 mls/hr 06/25/18 12:05 06/26/18 17:24 Normal Saline - IV 60 mls/hr ASDIR REED Administration Insulin Aspart 1 vial 06/22/18 22:00 06/27/18 06:14 Novolog Vial Sliding Scale - SQ 2 units ACHS REED Administration Protocol Levothyroxine Sodium 44 mcg 06/23/18 07:00 06/27/18 06:15 Synthroid Injection - IVPUSH 44 mcg 0700 REED Administration Metoprolol Tartrate 5 mg 06/22/18 18:00 06/27/18 09:21 Lopressor Injection - IVPUSH 5 mg Q4H-IV REED Administration Mupirocin 1 applic 06/22/18 22:00 06/27/18 09:05 Bactroban Ointment (For Decolonization) - NS 06/27/18 21:59 1 applic BID REED Administration Ondansetron HCl 4 mg 06/22/18 17:53 Zofran Injection IVPUSH Q6H PRN NAUSEA Pantoprazole Sodium 40 mg 06/23/18 10:00 06/27/18 09:05 Protonix Iv IVPUSH 40 mg DAILY REED Administration Objective: Vital Signs Period Temp Pulse Resp BP Sys/De La O Pulse Ox Last 24 Hr 97.4 F-98.4 F 96-120 10-19 90-125/41-80 96-98 Physical Exam: General: Intubted, sedated Lungs: Decreased breath sounds bilaterally Heart: Tachycardia, S1S2 Abd: RLQ drain to suction. LLQ ostomy with dark brown output Ext: Warm, well-perfused CBCD WBC 14.5 K/mm3 (4.0-10.0) H 06/27/18 05:30 RBC 4.39 M/mm3 (3.60-5.2) 06/27/18 05:30 Hgb 10.6 GM/dL (10.7-15.3) L 06/27/18 05:30 Hct 32.8 % (32.4-45.2) 06/27/18 05:30 MCV 74.8 fl (80-96) L 06/27/18 05:30 MCHC 32.3 g/dl (32.0-36.0) 06/27/18 05:30 RDW 30.2 % (11.6-15.6) H 06/27/18 05:30 Plt Count 361 K/MM3 (134-434) 06/27/18 05:30 MPV 8.9 fl (7.5-11.1) 06/27/18 05:30 CMP Sodium 134 mmol/L (136-145) L 06/27/18 05:30 Potassium 3.5 mmol/L (3.5-5.1) 06/27/18 05:30 Chloride 102 mmol/L (98-107) 06/27/18 05:30 Carbon Dioxide 25 mmol/L (21-32) 06/27/18 05:30 Anion Gap 7 (8-16) L 06/27/18 05:30 BUN 18 mg/dL (7-18) 06/27/18 05:30 Creatinine 0.5 mg/dL (0.55-1.02) L 06/27/18 05:30 Creat Clearance w eGFR > 60 (>60) 06/27/18 05:30 Random Glucose 153 mg/dL (74-106) H 06/27/18 05:30 Calcium 7.9 mg/dL (8.5-10.1) L 06/27/18 05:30 Total Bilirubin 0.8 mg/dL (0.2-1.0) 06/27/18 05:30 AST 12 U/L (15-37) L 06/27/18 05:30 ALT 13 U/L (12-78) 06/27/18 05:30 Alkaline Phosphatase 101 U/L (45-117) 06/27/18 05:30 Total Protein 4.5 g/dl (6.4-8.2) L 06/27/18 05:30 Albumin 1.4 g/dl (3.4-5.0) L 06/27/18 05:30 CARDIAC ENZYMES Troponin I < 0.02 ng/ml (0.00-0.05) 06/12/18 07:47 Microbiology 06/23/18 09:28 Blood - Peripheral Venous Blood Culture - Preliminary NO GROWTH OBTAINED AFTER 96 HOURS, INCUBATION TO CONTINUE FOR 1 DAYS. 06/23/18 09:35 Blood - Peripheral Venous Blood Culture - Preliminary NO GROWTH OBTAINED AFTER 96 HOURS, INCUBATION TO CONTINUE FOR 1 DAYS. 06/22/18 Unknown Peritoneal Fluid Gram Stain - Final 06/22/18 Unknown Peritoneal Fluid Body Fluid Culture - Final Enterococcus Raffinosus Escherichia Coli Yeast Like Organism 06/22/18 Unknown Peritoneal Fluid Anaerobic Culture - Final NO ANAEROBES WERE ISOLATED 06/16/18 15:00 Pleural Fluid AFB Smear Concentration - Final 06/16/18 15:00 Pleural Fluid Mycobacterial Culture - Preliminary 06/16/18 15:00 Pleural Fluid Gram Stain - Final 06/16/18 15:00 Pleural Fluid Body Fluid Culture - Final NO GROWTH OF AEROBIC ORGANISMS AFTER 48 HOURS INCUBATION 06/16/18 15:00 Pleural Fluid Anaerobic Culture - Final NO ANAEROBES WERE ISOLATED 06/14/18 08:30 Blood - Peripheral Venous Blood Culture - Final NO GROWTH AFTER 5 DAYS INCUBATION 06/14/18 08:30 Blood - Peripheral Venous Blood Culture - Final NO GROWTH AFTER 5 DAYS INCUBATION 06/16/18 10:00 Sputum - Expectorated Gram Stain - Final 06/16/18 10:00 Sputum - Expectorated Sputum Culture - Final NORMAL RESPIRATORY EFRAIN 06/16/18 15:00 Pleural Fluid JACOB Preparation - Preliminary 06/16/18 15:00 Pleural Fluid Fungal Culture - Preliminary 06/14/18 10:30 Urine - Urine [place] Urine Culture - Final Escherichia Coli 06/14/18 17:14 Urine For Antigen Detection Legionella Antigen - Final 06/14/18 17:14 Urine For Antigen Detection Streptococcus pneumoniae Antigen (M - Final Assessment: This is an 87 year old female with PMHx of CVA, a.fib (not on a/c), diastolic heart failure, anemia, diet-controlled DM, breast cancer, hypothyroidism, who presented to the ED with ongoing weakness and shortness of breath and hospital course complicated by sigmoid colonic perforation during colonoscopy s/p Lopez procedure. Plan: 1) Sigmoid colonic perforation, septic shock, fecal peritonitis - S/p Lopez procedure on 06/22/18 - Continue Caspofungin - Continue Flagyl - Continue Zosyn - Appreciate ID consult 2) Acute hypercapneic and hypoxic respiratory failure - Remains intubated - Chest X-ray today with complete opacification of left hemithorax. Large right pleural effusion - Discussed x-ray with Dr. Sanabria who is recommending chest PT, mucomyst and recheck x-ray tomorrow, if remains opacified, will consider bronch - Appreciate pulmonary consult 3) Acute on chronic diastolic heart failure - Large right pleural effusion, discussed thoracentesis with Dr. Sanabria who is recommending holding off at this time - Patient will benefit from diuresis once off pressors - Appreciate cardiology consult 4) A.fib - Rate controlled - Continue Metoprolol - [id number] score of 5 A/C recommended unless it is absolutely contraindicated , will defer starting to GI/surgery/cardiology 5) B/l pneumonia - Continue abx as above 6) Carotid artery stenosis - Carotid doppler with extensive atherosclerotic disease with stenosis in the 80 -99% range involving the right ICA and in the 60-79% range involving the left carotid bifurcation - Will need vascular surgery evaluation once more stable 7) Hypothyroidism - Continue synthroid 8) E.coli UTI - Abx as above 9) F/E/N: - Feeds per surgery 10) Dispo: - Requires continued ICU care CODE STATUS: FULL CODE Visit type - Emergency Visit Emergency Visit: Yes ED Registration Date: 06/12/18 Care time: The patient presented to the Emergency Department on the above date and was hospitalized for further evaluation of their emergent condition. - New Patient This patient is new to me today: Yes Date on this admission: 06/27/18 - Critical Care Critical Care patient: Yes Total Critical Care Time (in minutes): 60 Critical Care Statement: The care of this patient involved high complexity decision making to prevent further life threatening deterioration of the patient 's condition and/or to evaluate & treat vital organ system(s) failure or risk of failure.
[2018-06-27] MEDS: CASPOFUNGIN ACETATE 50 MG in SODIUM CHLORIDE 250 ML IVPB SCH (10:48)
[2018-06-27] MEDS: PROPOFOL 1,000,000 MCG/100 ML VIAL IVPB SCH (10:49)
--- NOTE | 2018-06-27 12:46 | PN ---
Teaching Attending Note Name of Resident: Alfredo Rodriguez ATTENDING PHYSICIAN STATEMENT I saw and evaluated the patient. I reviewed the resident's note and discussed the case with the resident. I agree with the resident's findings and plan as documented. SUBJECTIVE: Pt seen and examined in the ICU. Remains intubated, sedated. On levophed gtt but lower dose. CXR still with left sided atelectasis. Vented on 50%, plateau pressures 25. OBJECTIVE: Vital Signs Period Temp Pulse Resp BP Sys/De La O Pulse Ox Last 24 Hr 97.4 F-98.4 F 96-120 10-19 90-125/41-80 94-98 Intake & Output 06/24/18 06/25/18 06/26/18 06/27/18 23:59 23:59 23:59 23:59 Intake Total 4085.4 3851.6 2431.5 680.8 Output Total 1350 1550 2070 500 Balance 2735.4 2301.6 361.5 180.8 Weight 70 kg 73.8 kg 75.3 kg 75.6 kg Gen: intubated, sedated Heart: tachycardic, regular Lung: scattered rhonchi Abd: soft, nontender, ostomy pink with stool output Ext: + edema CBC, BMP 06/27/18 05:30 06/27/18 05:30 Active Medications Albuterol/Ipratropium (Duoneb -) 1 amp NEB Q6H PRN PRN Reason: SHORTNESS OF BREATH Chlorhexidine Gluconate (Hibiclens For Decolonization -) 1 applic TP HS REED Last Admin: 06/26/18 21:29 Dose: 1 applic Chlorhexidine Gluconate (Peridex -) 15 ml MM BID REED Last Admin: 06/27/18 09:22 Dose: 15 ml Heparin Sodium (Porcine) (Heparin -) 5,000 unit SQ BID REED Last Admin: 06/27/18 09:22 Dose: 5,000 unit Hydrocortisone Sodium Succinate (Solu-Cortef -) 25 mg IVPUSH Q8H-IV REED Last Admin: 06/27/18 09:05 Dose: 25 mg Metronidazole (Flagyl 500mg Premixed Ivpb -) 500 mg in 100 mls @ 100 mls/hr IVPB Q6H-IV REED Last Admin: 06/27/18 08:14 Dose: 100 mls/hr Propofol (Diprivan -) 1,000,000 mcg in 100 mls @ 1.894 mls/hr IVPB TITR REED; Protocol Last Admin: 06/27/18 10:49 Dose: 10 mcg/kg/min, 3.788 mls/hr Fentanyl 500 mcg/ Dextrose 100 mls @ 5 mls/hr IVPB TITR REED; Protocol Last Admin: 06/26/18 17:22 Dose: 5 mls/hr Piperacillin Sod/Tazobactam (Sod 3.375 gm/ Dextrose) 50 mls @ 100 mls/hr IVPB Q8H-IV REED; Protocol Last Admin: 06/27/18 09:23 Dose: 100 mls/hr Norepinephrine Bitartrate 16, (000 mcg/ Sodium Chloride) 1,000 mls @ 18.75 mls/ hr IV TITR REED; Protocol Last Titration: 06/27/18 10:00 Dose: 6 mcg/min, 22.5 mls/hr Caspofungin 50 mg/ Sodium (Chloride) 250 mls @ 250 mls/hr IVPB DAILY [facility] Last Admin: 06/27/18 10:48 Dose: 250 mls/hr Sodium Chloride (Normal Saline -) 1,000 mls @ 60 mls/hr IV ASDIR REED Last Admin: 06/26/18 17:24 Dose: 60 mls/hr Insulin Aspart (Novolog Vial Sliding Scale -) 1 vial SQ ACHS [facility]; Protocol Last Admin: 06/27/18 11:56 Dose: Not Given Levothyroxine Sodium (Synthroid Injection -) 44 mcg IVPUSH 0700 [facility] Last Admin: 06/27/18 06:15 Dose: 44 mcg Metoprolol Tartrate (Lopressor Injection -) 5 mg IVPUSH Q4H-IV REED Last Admin: 06/27/18 09:21 Dose: 5 mg Mupirocin (Bactroban Ointment (For Decolonization) -) 1 applic NS BID [facility] Stop: 06/27/18 21:59 Last Admin: 06/27/18 09:05 Dose: 1 applic Ondansetron HCl (Zofran Injection) 4 mg IVPUSH Q6H PRN PRN Reason: NAUSEA Pantoprazole Sodium (Protonix Iv) 40 mg IVPUSH DAILY [facility] Last Admin: 06/27/18 09:05 Dose: 40 mg ASSESSMENT AND PLAN: Sigmoid Colon Rupture Fecal Peritonitis Septic Shock Acute Hypoxic and Hypercapneic Respiratory Failure Acute on Chronic Diastolic Heart Failure Pulmonary HTN CAD Atrial Fibrillation with RVR Hyponatremia Hypothyroidism UTI - position right side down, chest PT, bed percussion - albuterol with mucomyst nebs q6h - monitor CXR - if no improvement in atelectasis, may need inspection bronchoscopy - continue antibiotics - IVF to keep CVP 8-12 - pressor support to maintain MAP >65 - taper off stress dose steroids - inhaled bronchodilators - rate control - continue anticoagulation - taper FiO2 to keep Spo2 >90% - monitor ostomy output - spontaneous breathing trials when atelectasis improves - start enteral feeds - DVT/GI prophylaxis - continue ICU monitoring critical care time spent in reviewing chart, evaluating patient and formulating plan 35 min
[2018-06-27] MEDS ORDERED: ALBUTEROL SO4 0.083% IH SOL 2.5 MG/3 ML VIAL.NEB. NEB PRN (13:03)
[2018-06-27] MEDS ORDERED: SODIUM PHOSPHATE - 40 MM in SODIUM CHLORIDE 500 ML IVPB ONE (14:00)
[2018-06-27] MEDS: SODIUM CHLORIDE 1,000 ML IV SCH (14:45)
[2018-06-27] MEDS: ACETYLCYSTEINE 20% 200MG/ML 4 ML VIAL *FOR ORAL / INH USE ONLY NEB SCH ×2 (16:00→21:00)
[2018-06-27] MEDS: ALBUTEROL SO4 0.083% IH SOL 2.5 MG/3 ML VIAL.NEB. NEB SCH ×2 (16:00→21:00)
[2018-06-27] MEDS ORDERED: fentaNYL CITRATE 250 MCG/5 ML VIAL ONE (18:14)
[2018-06-27] MEDS ORDERED: NOREPINEPHRINE BITARTRATE 4 MG/4 ML ML IV ONE (18:15)
[2018-06-27] MEDS: FENTANYL INJECTION 500 MCG in DEXTROSE 5%-WATER - 90 ML IVPB SCH (18:20)
--- NOTE | 2018-06-27 19:05 | PN ---
Physical Exam: SUBJECTIVE: Patient seen and examined this am and evening in icu. Remains intubated and sedated. OBJECTIVE: Vital Signs Period Temp Pulse Resp BP Sys/De La O Pulse Ox Last 24 Hr 97 F-99.2 F 96-122 10-18 90-125/42-80 94-98 GENERAL: Intubated, NG Tube. HEAD: NC/AT NECK: Trachea midline. No JVD. LUNGS: B/L rhonchi. HEART: Irregular. ABDOMEN: Soft. Colostomy present. Villanueva, stool overlying. EXTREMITIES: Feet cool to touch, scaly, onycholysis NEUROLOGICAL: N/A SKIN: dry, pallor. Bandages on feet b/l to prevent pressure ulcers. Laboratory Results - last 24 hr 06/26/18 06/27/18 06/27/18 21:34 05:30 05:30 WBC 14.5 H RBC 4.39 Hgb 10.6 L Hct 32.8 MCV 74.8 L MCH 24.1 L MCHC 32.3 RDW 30.2 H Plt Count 361 MPV 8.9 Absolute Neuts (auto) 13.0 Neutrophils % 89.8 H Lymphocytes % 2.1 L D Monocytes % 7.8 Eosinophils % 0.3 D Basophils % 0.0 Nucleated RBC % 0 Sodium 134 L Potassium 3.5 Chloride 102 Carbon Dioxide 25 Anion Gap 7 L BUN 18 Creatinine 0.5 L Creat Clearance w eGFR > 60 POC Glucometer 175.42015 Random Glucose 153 H Calcium 7.9 L Phosphorus 1.5 L Magnesium 2.2 Total Bilirubin 0.8 AST 12 L ALT 13 Alkaline Phosphatase 101 Total Protein 4.5 L Albumin 1.4 L 06/27/18 06/27/18 06:04 17:24 WBC RBC Hgb Hct MCV MCH MCHC RDW Plt Count MPV Absolute Neuts (auto) Neutrophils % Lymphocytes % Monocytes % Eosinophils % Basophils % Nucleated RBC % Sodium Potassium Chloride Carbon Dioxide Anion Gap BUN Creatinine Creat Clearance w eGFR POC Glucometer 168.68456 171.43972 Random Glucose Calcium Phosphorus Magnesium Total Bilirubin AST ALT Alkaline Phosphatase Total Protein Albumin Active Medications Generic Name Dose Route Start Last Admin Trade Name Freq PRN Reason Stop Dose Admin Acetylcysteine 200 mg 06/27/18 16:00 06/27/18 16:00 Mucomyst 20 Oral / Inh Use Only* NEB 200 mg RQID REED Administration Albuterol Sulfate 1 amp 06/27/18 16:00 06/27/18 16:00 Ventolin 0.083% Nebulizer Soln - NEB 1 amp RQID REED Administration Albuterol/Ipratropium 1 amp 06/22/18 17:53 Duoneb - NEB Q6H PRN SHORTNESS OF BREATH Chlorhexidine Gluconate 1 applic 06/22/18 22:00 06/26/18 21:29 Hibiclens For Decolonization - TP 1 applic HS REED Administration Chlorhexidine Gluconate 15 ml 06/23/18 10:00 06/27/18 09:22 Peridex - MM 15 ml BID REED Administration Heparin Sodium (Porcine) 5,000 unit 06/22/18 22:00 06/27/18 09:22 Heparin - SQ 5,000 unit BID REED Administration Hydrocortisone Sodium Succinate 25 mg 06/27/18 22:00 Solu-Cortef - IVPUSH 06/29/18 10:01 Q12H REED Metronidazole 500 mg in 100 mls @ 100 mls/hr 06/22/18 21:00 06/27/18 14:46 Flagyl 500mg Premixed Ivpb - IVPB 100 mls/hr Q6H-IV REED Administration Propofol 1,000,000 mcg in 100 mls @ 1.894 mls/hr 06/22/18 18:15 06/27/18 10: 49 Diprivan - IVPB 10 mcg/kg/min TITR REED 3.788 mls/hr Administration Protocol 5 MCG/KG/MIN Fentanyl 500 mcg/ Dextrose 100 mls @ 5 mls/hr 06/22/18 18:15 06/27/18 18:20 IVPB 5 mls/hr TITR REED Administration Protocol 25 MCG/HR Piperacillin Sod/Tazobactam 50 mls @ 100 mls/hr 06/23/18 02:00 06/27/18 17:35 Sod 3.375 gm/ Dextrose IVPB 100 mls/hr Q8H-IV REED Administration Protocol Norepinephrine Bitartrate 16, 1,000 mls @ 18.75 mls/hr 06/25/18 06:40 10:00 000 mcg/ Sodium Chloride IV 6 mcg/min TITR REED 22.5 mls/hr Titration Protocol 5 MCG/MIN Caspofungin 50 mg/ Sodium 250 mls @ 250 mls/hr 06/26/18 10:00 06/27/18 10:48 Chloride IVPB 250 mls/hr DAILY REED Administration Sodium Chloride 1,000 mls @ 60 mls/hr 06/25/18 12:05 06/27/18 14:45 Normal Saline - IV 60 mls/hr ASDIR REED Administration Sodium Phosphate 40 mm/ Sodium 513.3333 mls @ 62.5 mls/hr 06/27/18 14:00 06/07 16:19 Chloride IVPB 06/27/18 22:12 62.5 mls/hr ONCE ONE Administration Insulin Aspart 1 vial 06/22/18 22:00 06/27/18 17:35 Novolog Vial Sliding Scale - SQ 2 units ACHS REED Administration Protocol Levothyroxine Sodium 44 mcg 06/23/18 07:00 06/27/18 06:15 Synthroid Injection - IVPUSH 44 mcg 0700 REED Administration Metoprolol Tartrate 5 mg 06/22/18 18:00 06/27/18 17:34 Lopressor Injection - IVPUSH Not Given Q4H-IV REED Mupirocin 1 applic 06/22/18 22:00 06/27/18 09:05 Bactroban Ointment (For Decolonization) - NS 06/27/18 21:59 1 applic BID REED Administration Ondansetron HCl 4 mg 06/22/18 17:53 Zofran Injection IVPUSH Q6H PRN NAUSEA Pantoprazole Sodium 40 mg 06/23/18 10:00 06/27/18 09:05 Protonix Iv IVPUSH 40 mg DAILY REED Administration ASSESSMENT/PLAN: Ms. Singh is an 87 y/o lady with a past medical history of A. fib (no AC), CVA , breast cancer, hypothyroidism, iron deficiency anemia, and DM. Pt has a h/o occult GI bleeding requiring blood transfusions. Pt has had a recent development of severe microcytic anemia and heme + stool. Has been on aspirin chronically for A fib. Has not had any specific GI complaints and has refused GI workups in past. Pt was referred to [facility] for a colonoscopy to r/o any GI bleed. Pt developed a perforation of her rectosigmoid colon s/p colonoscopy. Dr Lora, General Surgeon, was notified and pt was transfered from [facility] to [facility]. An exploratory laparotomy was performed where surgical resection of the rectosigmoid colon with closure of the anorectal stump and formation of an end colostomy Neuro: -Intubated and Sedated. Propofol and Fentanyl -Levophed--> 6 mcg/min [facility]: -Colonic perforation, fecal peritonitis -S/P Lopez procedure POD #5 -Continue empiric zosyn/ flagyl per Dr Saini, ID -Caspofungin -ICU monitoring -Protonix 40 -Enteral Feeds started. -Phosphorus 1.5 this AM. Sodium Phosphate 40 mm/ NaCl @ 62.5 mls/hr PULM: -Duoneb 1 AMP NEB Q6H -Solu-cortef tapered down today to 25 mg IVPB Q12H -Chest physiotherapy Chest XRAY 06/27/18- Complete opacification of left hemithorax. D/D includes acute mucous plug in left main bronchus vs. worsening left pleural effusion with compressive atelectasis. -Albuterol/Mucomyst started today AFIB: Lopressor Injection 5 mg IVPUSH Q4H Home Meds- ASA 325, Cardizem 180 PO Daily, Tenormin 50 MG PO Daily. Per Cardiology Dr Rodriguez: B-Blockers to assist with rate control hemodynamics permitting FEN 60 mls/hr NS Monitor Electrolytes Enterel Feeds Osmolite DVT ppx: 5,000 unit SQ BID Dispo- continue to monitor in icu. Visit type - Emergency Visit Emergency Visit: Yes ED Registration Date: 06/12/18 Care time: The patient presented to the Emergency Department on the above date and was hospitalized for further evaluation of their emergent condition. - New Patient This patient is new to me today: No - Critical Care Critical Care patient: Yes Total Critical Care Time (in minutes): 35 Critical Care Statement: The care of this patient involved high complexity decision making to prevent further life threatening deterioration of the patient 's condition and/or to evaluate & treat vital organ system(s) failure or risk of failure.
[2018-06-27] MEDS: CHLORHEXIDINE GLUCONATE 4% CLEANSER FOR DECOLONIZATION TP SCH (21:58)
[2018-06-28] MEDS ORDERED: PIPERACILLIN/TAZOBACTAM 3.375 GM VIAL IVPB ONE ×3 (00:40→17:07)
[2018-06-28] MEDS ORDERED: DEXTROSE 5%-WATER - 50 ML IVPB ONE ×3 (00:41→17:07)
[2018-06-28] MEDS: METOPROLOL TARTRATE 5 MG/5 ML VIAL IVPUSH SCH ×4 (01:00→15:15)
[2018-06-28] MEDS: PROPOFOL 1,000,000 MCG/100 ML VIAL IVPB SCH ×2 (01:00→13:10)
[2018-06-28] MEDS: PIPERACILLIN/TAZOB 3.375 GM 3.375 GM in DEXTROSE 5%-WATER - 50 ML IVPB SCH ×3 (01:00→17:16)
[2018-06-28] MEDS ORDERED: PT OWN MED DRAWER 7, Y5N ONE ×2 (05:51→08:15)
[2018-06-28 06:07] LABS: HEMATOCRIT 32.2 % (32.4-45.2); HEMOGLOBIN 10.4 GM/dL (10.7-15.3); MCH 24.2 pg (25.7-33.7); MCHC 32.4 g/dl (32.0-36.0); MEAN CELL VOLUME 74.8 fl (80-96); MEAN PLT VOLUME 9.1 fl (7.5-11.1); PLATELET COUNT 428 K/MM3 (134-434); RBC 4.31 M/mm3 (3.60-5.2); RDW 30.3 % (11.6-15.6); WHITE BLOOD COUNT 12.1 K/mm3 (4.0-10.0)
[2018-06-28] MEDS: LEVOTHYROXINE SODIUM 100 MCG VIAL IVPUSH SCH (06:20)
[2018-06-28] MEDS: INSULIN SLIDING SCALE (NOVOLOG) 1 VIAL SQ SCH ×4 (06:20→22:00)
[2018-06-28 06:37] LABS: ALBUMIN 1.3 g/dl (3.4-5.0); ANION GAP 7 (8-16); BLOOD UREA NITROGEN 19 mg/dL (7-18); CALCIUM 7.9 mg/dL (8.5-10.1); CHLORIDE 103 mmol/L (98-107); CO2 26 mmol/L (21-32); GLUCOSE,RANDOM 215 mg/dL (74-106); POTASSIUM 3.5 mmol/L (3.5-5.1); SODIUM 136 mmol/L (136-145)
[2018-06-28 06:40] LABS: ALK PHOS 97 U/L (45-117); BILIRUBIN,TOTAL 0.7 mg/dL (0.2-1.0); CREATININE 0.5 mg/dL (0.55-1.02); PHOSPHOROUS 2.8 mg/dL (2.5-4.9); SGOT/AST 11 U/L (15-37); SGPT/ALT 10 U/L (12-78); TOT PROT 4.3 g/dl (6.4-8.2)
--- NOTE | 2018-06-28 07:26 | PN ---
Progress Note (short form) - Note Progress Note: POD #6 Remains in ICU, vented and sedated. Nutrition consult appreciated - pt on Osmolite. No acute events past 24 hours per RN notes. Decreasing Norepi and tapering steroids. Last Vital Signs Temp Pulse Resp BP Pulse Ox 98.4 F 102 H 15 106/50 94 L 06/28/18 06:00 18 06:00 06/28/18 06:17 06/28/18 06:00 06/27/18 21:00 CBC, BMP 06/28/18 05:30 06/28/18 05:30 INR, PTT INR 1.27 (0.82-1.09) H 06/12/18 07:47 ABD: soft. midline incision open with few intermittent cassie for umbilical re- approximation. Fascia intact. Wound is clean. Ostomy is viable/functioning. : kapoor to gravity, good UOP UE/LE: edematous x4, non-pitting Problem List - Problems (1) Status post Sam procedure Assessment/Plan: 87 yo female who sustained sigmoid perforation during colonoscopy (work-up for anemia). Now POD #6 s/p Hartmans Procedure. Fecal peritonitis. Remains on pressor support (which they are decreasing. Cont to taper steroids. Leukocytosis is resolving. Wean to extubate per ICU/Pulm - if unable, start thinking about trach and PEG Norepi for BP support GI / DVT PPX Nutrition/Osmolite IV ABX per ID Monitor I/O's Correct elyte abnormalities prn Prognosis remains guarded. Above discussed with Dr. Lora and agrees. Code(s): Z93.3 - COLOSTOMY STATUS
[2018-06-28] MEDS: ACETYLCYSTEINE 20% 200MG/ML 4 ML VIAL *FOR ORAL / INH USE ONLY NEB SCH (08:34)
[2018-06-28] MEDS: ALBUTEROL SO4 0.083% IH SOL 2.5 MG/3 ML VIAL.NEB. NEB SCH (08:35)
[2018-06-28] MEDS: NOREPINEPHRINE BITARTRATE 16,000 MCG in SODIUM CHLORIDE 0.45% 984 ML IV SCH (09:25)
[2018-06-28] MEDS: HEPARIN NA (PORCINE) 5,000 UNITS/ML 1ML VIAL SQ SCH ×2 (09:27→21:58)
[2018-06-28] MEDS: CASPOFUNGIN ACETATE 50 MG in SODIUM CHLORIDE 250 ML IVPB SCH (09:27)
[2018-06-28] MEDS: HYDROCORTISONE SOD SUCCINATE 100 MG/2 ML VIAL IVPUSH SCH ×2 (09:30→21:58)
[2018-06-28] MEDS: CHLORHEXIDINE GLUCONATE 0.12% 15ML CUP MM SCH ×2 (09:30→21:58)
[2018-06-28] MEDS: PANTOPRAZOLE SODIUM 40 MG VIAL IVPUSH SCH (09:30)
--- NOTE | 2018-06-28 11:28 | PN ---
Progress Note, Physician History of Present Illness: Remains intubated and arousable s/p Lopez's procedure and fecal peritonitis. Weaning off pressors and steroids. Episodes of rapid afib. - Current Medication List Current Medications: Active Medications Albuterol/Ipratropium (Duoneb -) 1 amp NEB Q6H PRN PRN Reason: SHORTNESS OF BREATH Chlorhexidine Gluconate (Hibiclens For Decolonization -) 1 applic TP HS REED Last Admin: 06/27/18 21:58 Dose: 1 applic Chlorhexidine Gluconate (Peridex -) 15 ml MM BID REED Last Admin: 06/28/18 09:30 Dose: 15 ml Heparin Sodium (Porcine) (Heparin -) 5,000 unit SQ BID REED Last Admin: 06/28/18 09:27 Dose: 5,000 unit Hydrocortisone Sodium Succinate (Solu-Cortef -) 25 mg IVPUSH Q12H REED Stop: 06/29/18 10:01 Last Admin: 06/28/18 09:30 Dose: 25 mg Metronidazole (Flagyl 500mg Premixed Ivpb -) 500 mg in 100 mls @ 100 mls/hr IVPB Q6H-IV REED Last Admin: 06/28/18 09:26 Dose: 100 mls/hr Propofol (Diprivan -) 1,000,000 mcg in 100 mls @ 1.894 mls/hr IVPB TITR REED; Protocol Last Admin: 06/28/18 01:00 Dose: 10 mcg/kg/min, 3.788 mls/hr Fentanyl 500 mcg/ Dextrose 100 mls @ 5 mls/hr IVPB TITR REED; Protocol Last Admin: 06/27/18 18:20 Dose: 5 mls/hr Piperacillin Sod/Tazobactam (Sod 3.375 gm/ Dextrose) 50 mls @ 100 mls/hr IVPB Q8H-IV REED; Protocol Last Admin: 06/28/18 09:32 Dose: 100 mls/hr Norepinephrine Bitartrate 16, (000 mcg/ Sodium Chloride) 1,000 mls @ 18.75 mls/ hr IV TITR REED; Protocol Last Admin: 06/28/18 09:25 Dose: 10 mcg/min, 37.5 mls/hr Caspofungin 50 mg/ Sodium (Chloride) 250 mls @ 250 mls/hr IVPB DAILY REED Last Admin: 06/28/18 09:27 Dose: 250 mls/hr Sodium Chloride (Normal Saline -) 1,000 mls @ 60 mls/hr IV ASDIR [facility] Last Admin: 06/27/18 14:45 Dose: 60 mls/hr Insulin Aspart (Novolog Vial Sliding Scale -) 1 vial SQ ACHS [facility]; Protocol Last Admin: 06/28/18 06:20 Dose: 8 units Levothyroxine Sodium (Synthroid Injection -) 44 mcg IVPUSH 0700 [facility] Last Admin: 06/28/18 06:20 Dose: 44 mcg Metoprolol Tartrate (Lopressor Injection -) 5 mg IVPUSH Q4H-IV [facility] Last Admin: 06/28/18 09:29 Dose: Not Given Ondansetron HCl (Zofran Injection) 4 mg IVPUSH Q6H PRN PRN Reason: NAUSEA Pantoprazole Sodium (Protonix Iv) 40 mg IVPUSH DAILY [facility] Last Admin: 06/28/18 09:30 Dose: 40 mg - Objective Vital Signs: Vital Signs Temperature 98.3 F 06/28/18 08:00 Pulse Rate 114 H 06/28/18 09:25 Respiratory Rate 16 06/28/18 10:51 Blood Pressure 117/61 06/28/18 09:25 O2 Sat by Pulse Oximetry (%) 99 06/28/18 10:51 Constitutional: Yes: No Distress, Calm, Thin Neck: Yes: Supple Cardiovascular: Yes: Tachycardia, Pulse Irregular Respiratory: Yes: Intubated, Mechanically Ventilated, Rhonchi Gastrointestinal: Yes: Soft, Hypoactive Bowel Sounds, Other (Post-op) Edema: Yes Edema: LLE: 1+, RLE: 1+ Labs: CBC, BMP 06/28/18 05:30 06/28/18 05:30 INR, PTT INR 1.27 (0.82-1.09) H 06/12/18 07:47 - ....Imaging Chest X-ray: Report Reviewed (Improved aeration of left hemithorax) EKG: Report Reviewed (Tele: Afib) Problem List - Problems (1) Acute on chronic diastolic heart failure Code(s): I50.33 - ACUTE ON CHRONIC DIASTOLIC (CONGESTIVE) HEART FAILURE (2) Atrial fibrillation Code(s): I48.91 - UNSPECIFIED ATRIAL FIBRILLATION Qualifiers: Atrial fibrillation type: persistent Qualified Code(s): I48.1 - Persistent atrial fibrillation (3) Pleural effusion Code(s): J90 - PLEURAL EFFUSION, NOT ELSEWHERE CLASSIFIED (4) Hypothyroidism Code(s): E03.9 - HYPOTHYROIDISM, UNSPECIFIED Qualifiers: Hypothyroidism type: unspecified Qualified Code(s): E03.9 - Hypothyroidism , unspecified (5) Perforation of colon as colonoscopy complication Code(s): K63.1 - PERFORATION OF INTESTINE (NONTRAUMATIC); K91.71 - ACCIDENTAL PNCTR & LAC OF A DGSTV SYS ORG DUR DGSTV SYS PROC (6) Status post Sam procedure Code(s): Z93.3 - COLOSTOMY STATUS (7) Acute on chronic respiratory failure with hypoxia and hypercapnia Code(s): J96.21 - ACUTE AND CHRONIC RESPIRATORY FAILURE WITH HYPOXIA; J96.22 - ACUTE AND CHRONIC RESPIRATORY FAILURE WITH HYPERCAPNIA Assessment/Plan cta of chest: no CT evidence of pulmonary embolism, pulmonary vascular congestion with cardiomegaly, bilateral pleural effusion Head CT (June 14 2018): no acute pathology echo LV WNL pleural effusion severe TR RVSP elevated PVR 1. Colonic perforation, fecal peritonitis, sepsis POD#6 post Lopez procedure 2. Septic shock 3. Acute hypoxic and hypercapneic respiratory failure referable to 4. Acute on chronic class II-III NYHA classification LV failure related to diastolic LV dysfunction 5. CAD angina pectoris 6. Severe TR with pulmonary HTN 7. Pleural effusions post right thoracentesis (transudate) 8. Persistent atrial fibrillation with periods of rapid ventricular response [id number] score of 5, not on A/C as patient has declined in past 9. Hypothyroidism 10. Carotid stenosis 11. Anemia 12. E. Coli UTI 13. Hyponatremia improved 14. Improved left Atelectasis PLAN: 1. Antibiotics and antifungals per the primary team/ID 2. Vent management as per ICU team, chest PT, bed percussion, mucomyst nebs, inhaled bronchodilators, taper off stress dose steroids 3. Titrate pressors to maintain MAP>65 mmHg, attempt to wean off as tolerated 4. B-Blockers to assist with rate control hemodynamics permitting 5. Diuretics/Lasix as needed with caution in view of the above noted hyponatremia 6. As outlined in prior notes considering the above noted [id number] score of 5 A/C recommended unless it is absolutely contraindicated 7. Enteral feeds, DVT/GI prophylaxis, spontaneous breathing trials as tolerated
--- NOTE | 2018-06-28 11:49 | PN ---
Teaching Attending Note Name of Resident: Alfredo Rodriguez ATTENDING PHYSICIAN STATEMENT I saw and evaluated the patient. I reviewed the resident's note and discussed the case with the resident. I agree with the resident's findings and plan as documented. SUBJECTIVE: Pt seen and examined in the ICU. Remains intubated, awake off sedation, weakly following some commands. On slightly increased dose of levophed gtt. Tolerating feeds. Left sided atelectasis markedly improved on AM CXR. OBJECTIVE: Vital Signs Period Temp Pulse Resp BP Sys/De La O Pulse Ox Last 24 Hr 97 F-99.2 F 95-126 10-24 83-126/36-72 94-99 Intake & Output 06/25/18 06/26/18 06/27/18 06/28/18 23:59 23:59 23:59 23:59 Intake Total 3851.6 2431.5 1889.8 2014 Output Total 1550 2070 1150 400 Balance 2301.6 361.5 739.8 1614 Weight 73.8 kg 75.3 kg 75.6 kg 76.566 kg Gen: intubated, awake Heart: tachycardic, regular Lung: scattered rhonchi Abd: soft, +ostomy pink with stool output Ext: + edema CBC, BMP 06/28/18 05:30 06/28/18 05:30 Active Medications Albuterol/Ipratropium (Duoneb -) 1 amp NEB Q6H PRN PRN Reason: SHORTNESS OF BREATH Chlorhexidine Gluconate (Hibiclens For Decolonization -) 1 applic TP HS REED Last Admin: 06/27/18 21:58 Dose: 1 applic Chlorhexidine Gluconate (Peridex -) 15 ml MM BID REED Last Admin: 06/28/18 09:30 Dose: 15 ml Heparin Sodium (Porcine) (Heparin -) 5,000 unit SQ BID REED Last Admin: 06/28/18 09:27 Dose: 5,000 unit Hydrocortisone Sodium Succinate (Solu-Cortef -) 25 mg IVPUSH Q12H REED Stop: 06/29/18 10:01 Last Admin: 06/28/18 09:30 Dose: 25 mg Metronidazole (Flagyl 500mg Premixed Ivpb -) 500 mg in 100 mls @ 100 mls/hr IVPB Q6H-IV REED Last Admin: 06/28/18 09:26 Dose: 100 mls/hr Propofol (Diprivan -) 1,000,000 mcg in 100 mls @ 1.894 mls/hr IVPB TITR REED; Protocol Last Admin: 06/28/18 01:00 Dose: 10 mcg/kg/min, 3.788 mls/hr Fentanyl 500 mcg/ Dextrose 100 mls @ 5 mls/hr IVPB TITR REED; Protocol Last Admin: 06/27/18 18:20 Dose: 5 mls/hr Piperacillin Sod/Tazobactam (Sod 3.375 gm/ Dextrose) 50 mls @ 100 mls/hr IVPB Q8H-IV REED; Protocol Last Admin: 06/28/18 09:32 Dose: 100 mls/hr Norepinephrine Bitartrate 16, (000 mcg/ Sodium Chloride) 1,000 mls @ 18.75 mls/ hr IV TITR REED; Protocol Last Admin: 06/28/18 09:25 Dose: 10 mcg/min, 37.5 mls/hr Caspofungin 50 mg/ Sodium (Chloride) 250 mls @ 250 mls/hr IVPB DAILY REED Last Admin: 06/28/18 09:27 Dose: 250 mls/hr Sodium Chloride (Normal Saline -) 1,000 mls @ 60 mls/hr IV ASDIR REED Last Admin: 06/27/18 14:45 Dose: 60 mls/hr Insulin Aspart (Novolog Vial Sliding Scale -) 1 vial SQ ACHS [facility]; Protocol Last Admin: 06/28/18 06:20 Dose: 8 units Levothyroxine Sodium (Synthroid Injection -) 44 mcg IVPUSH 0700 [facility] Last Admin: 06/28/18 06:20 Dose: 44 mcg Metoprolol Tartrate (Lopressor Injection -) 5 mg IVPUSH Q4H-IV REED Last Admin: 06/28/18 09:29 Dose: Not Given Ondansetron HCl (Zofran Injection) 4 mg IVPUSH Q6H PRN PRN Reason: NAUSEA Pantoprazole Sodium (Protonix Iv) 40 mg IVPUSH DAILY [facility] Last Admin: 06/28/18 09:30 Dose: 40 mg ASSESSMENT AND PLAN: Sigmoid Colon Rupture Fecal Peritonitis Septic Shock Acute Hypoxic and Hypercapneic Respiratory Failure Acute on Chronic Diastolic Heart Failure Pulmonary HTN CAD Atrial Fibrillation with RVR Hyponatremia Hypothyroidism UTI Atelectasis - continue chest PT, bed percussion - continue albuterol with mucomyst nebs q6h - monitor CXR - continue antibiotics - IVF to keep CVP 8-12 - pressor support to maintain MAP >65 - taper off stress dose steroids - inhaled bronchodilators - rate control - continue anticoagulation - taper FiO2 to keep Spo2 >90% - monitor ostomy output - spontaneous breathing trials as tolerated - enteral feeds - DVT/GI prophylaxis - continue ICU monitoring critical care time spent in reviewing chart, evaluating patient and formulating plan 35 min
--- NOTE | 2018-06-28 14:01 | PN ---
Progress Note (short form) - Note Progress Note: Subjective: The patient remains intubated, awake off sedation. Not following commands Remains on levophed Rapid a.fib overnight Chest X-ray today: opacified left hemithorax no longer seen. Reaeration of the left upper and midlung zones Current Medications Generic Name Dose Route Start Last Admin Trade Name Freq PRN Reason Stop Dose Admin Albuterol/Ipratropium 1 amp 06/22/18 17:53 Duoneb - NEB Q6H PRN SHORTNESS OF BREATH Chlorhexidine Gluconate 1 applic 06/22/18 22:00 06/27/18 21:58 Hibiclens For Decolonization - TP 1 applic HS REED Administration Chlorhexidine Gluconate 15 ml 06/23/18 10:00 06/28/18 09:30 Peridex - MM 15 ml BID REED Administration Heparin Sodium (Porcine) 5,000 unit 06/22/18 22:00 06/28/18 09:27 Heparin - SQ 5,000 unit BID REED Administration Hydrocortisone Sodium Succinate 25 mg 06/27/18 22:00 06/28/18 09:30 Solu-Cortef - IVPUSH 06/29/18 10:01 25 mg Q12H REED Administration Metronidazole 500 mg in 100 mls @ 100 mls/hr 06/22/18 21:00 06/28/18 09:26 Flagyl 500mg Premixed Ivpb - IVPB 100 mls/hr Q6H-IV REED Administration Propofol 1,000,000 mcg in 100 mls @ 1.894 mls/hr 06/22/18 18:15 06/28/18 13: 10 Diprivan - IVPB 10 mcg/kg/min TITR REED 3.788 mls/hr Administration Protocol 5 MCG/KG/MIN Fentanyl 500 mcg/ Dextrose 100 mls @ 5 mls/hr 06/22/18 18:15 06/27/18 18:20 IVPB 5 mls/hr TITR REED Administration Protocol 25 MCG/HR Piperacillin Sod/Tazobactam 50 mls @ 100 mls/hr 06/23/18 02:00 06/28/18 09:32 Sod 3.375 gm/ Dextrose IVPB 100 mls/hr Q8H-IV REED Administration Protocol Norepinephrine Bitartrate 16, 1,000 mls @ 18.75 mls/hr 06/25/18 06:40 12:47 000 mcg/ Sodium Chloride IV 8 mcg/min TITR REED 30 mls/hr Titration Protocol 5 MCG/MIN Caspofungin 50 mg/ Sodium 250 mls @ 250 mls/hr 06/26/18 10:00 06/28/18 09:27 Chloride IVPB 250 mls/hr DAILY REED Administration Insulin Aspart 1 vial 06/22/18 22:00 06/28/18 11:49 Novolog Vial Sliding Scale - SQ 4 units ACHS REED Administration Protocol Levothyroxine Sodium 44 mcg 06/23/18 07:00 06/28/18 06:20 Synthroid Injection - IVPUSH 44 mcg 0700 REED Administration Metoprolol Tartrate 5 mg 06/22/18 18:00 06/28/18 09:29 Lopressor Injection - IVPUSH Not Given Q4H-IV REED Ondansetron HCl 4 mg 06/22/18 17:53 Zofran Injection IVPUSH Q6H PRN NAUSEA Pantoprazole Sodium 40 mg 06/23/18 10:00 06/28/18 09:30 Protonix Iv IVPUSH 40 mg DAILY REED Administration Objective: Vital Signs Period Temp Pulse Resp BP Sys/De La O Pulse Ox Last 24 Hr 98 F-99.2 F 95-136 10-24 83-127/36-72 94-99 Physical Exam: General: Intubted, awake, not following commands Lungs: Decreased breath sounds bilaterally, slightly improved from yesterday Heart: Tachycardia, S1S2 Abd: RLQ Davol Abhinav sump to suction. LLQ ostomy with dark brown output Ext: Warm, well-perfused CBCD WBC 12.1 K/mm3 (4.0-10.0) H 06/28/18 05:30 RBC 4.31 M/mm3 (3.60-5.2) 06/28/18 05:30 Hgb 10.4 GM/dL (10.7-15.3) L 06/28/18 05:30 Hct 32.2 % (32.4-45.2) L 06/28/18 05:30 MCV 74.8 fl (80-96) L 06/28/18 05:30 MCHC 32.4 g/dl (32.0-36.0) 06/28/18 05:30 RDW 30.3 % (11.6-15.6) H 06/28/18 05:30 Plt Count 428 K/MM3 (134-434) 06/28/18 05:30 MPV 9.1 fl (7.5-11.1) 06/28/18 05:30 CMP Sodium 136 mmol/L (136-145) 06/28/18 05:30 Potassium 3.5 mmol/L (3.5-5.1) 06/28/18 05:30 Chloride 103 mmol/L (98-107) 06/28/18 05:30 Carbon Dioxide 26 mmol/L (21-32) 06/28/18 05:30 Anion Gap 7 (8-16) L 06/28/18 05:30 BUN 19 mg/dL (7-18) H 06/28/18 05:30 Creatinine 0.5 mg/dL (0.55-1.02) L 06/28/18 05:30 Creat Clearance w eGFR > 60 (>60) 06/28/18 05:30 Random Glucose 215 mg/dL (74-106) H 06/28/18 05:30 Calcium 7.9 mg/dL (8.5-10.1) L 06/28/18 05:30 Total Bilirubin 0.7 mg/dL (0.2-1.0) 06/28/18 05:30 AST 11 U/L (15-37) L 06/28/18 05:30 ALT 10 U/L (12-78) L 06/28/18 05:30 Alkaline Phosphatase 97 U/L (45-117) 06/28/18 05:30 Total Protein 4.3 g/dl (6.4-8.2) L 06/28/18 05:30 Albumin 1.3 g/dl (3.4-5.0) L 06/28/18 05:30 CARDIAC ENZYMES Troponin I < 0.02 ng/ml (0.00-0.05) 06/12/18 07:47 Microbiology 06/23/18 09:28 Blood - Peripheral Venous Blood Culture - Final NO GROWTH AFTER 5 DAYS INCUBATION 06/23/18 09:35 Blood - Peripheral Venous Blood Culture - Final NO GROWTH AFTER 5 DAYS INCUBATION 06/22/18 Unknown Peritoneal Fluid Gram Stain - Final 06/22/18 Unknown Peritoneal Fluid Body Fluid Culture - Final Enterococcus Raffinosus Escherichia Coli Yeast Like Organism 06/22/18 Unknown Peritoneal Fluid Anaerobic Culture - Final NO ANAEROBES WERE ISOLATED 06/16/18 15:00 Pleural Fluid AFB Smear Concentration - Final 06/16/18 15:00 Pleural Fluid Mycobacterial Culture - Preliminary 06/16/18 15:00 Pleural Fluid Gram Stain - Final 06/16/18 15:00 Pleural Fluid Body Fluid Culture - Final NO GROWTH OF AEROBIC ORGANISMS AFTER 48 HOURS INCUBATION 06/16/18 15:00 Pleural Fluid Anaerobic Culture - Final NO ANAEROBES WERE ISOLATED 06/14/18 08:30 Blood - Peripheral Venous Blood Culture - Final NO GROWTH AFTER 5 DAYS INCUBATION 06/14/18 08:30 Blood - Peripheral Venous Blood Culture - Final NO GROWTH AFTER 5 DAYS INCUBATION 06/16/18 10:00 Sputum - Expectorated Gram Stain - Final 06/16/18 10:00 Sputum - Expectorated Sputum Culture - Final NORMAL RESPIRATORY EFRAIN 06/16/18 15:00 Pleural Fluid JACOB Preparation - Preliminary 06/16/18 15:00 Pleural Fluid Fungal Culture - Preliminary 06/14/18 10:30 Urine - Urine [place] Urine Culture - Final Escherichia Coli 06/14/18 17:14 Urine For Antigen Detection Legionella Antigen - Final 06/14/18 17:14 Urine For Antigen Detection Streptococcus pneumoniae Antigen (M - Final Assessment: This is an 87 year old female with PMHx of CVA, a.fib (not on a/c), diastolic heart failure, anemia, diet-controlled DM, breast cancer, hypothyroidism, who presented to the ED with ongoing weakness and shortness of breath and hospital course complicated by sigmoid colonic perforation during colonoscopy s/p Lopez procedure. Plan: 1) Sigmoid colonic perforation, septic shock, fecal peritonitis - S/p Lopez procedure on 06/22/18 - Continue Caspofungin - Continue Flagyl - Continue Zosyn - Appreciate ID consult 2) Acute hypercapneic and hypoxic respiratory failure - Remains intubated - Daily wean trials - Sedation vacation - Chest X-ray today: opacified left hemithorax is no longer seen - Discussed x-ray with Dr. Sanabria who is recommending chest PT, mucomyst and recheck x-ray tomorrow, if remains opacified, will consider bronch - Appreciate pulmonary consult 3) Acute on chronic diastolic heart failure - Chest x-ray with bilateraly pleural effusions and vascular engorgement, per Dr. Sanabria, patient will benefit from diuresis once off pressors - Appreciate cardiology consult 4) A.fib - Some episodes of rapid a.fib overnight - Continue Metoprolol - [id number] score of 5 A/C recommended unless it is absolutely contraindicated , will defer starting to GI/surgery/cardiology 5) B/l pneumonia - Continue abx as above 6) Carotid artery stenosis - Carotid doppler with extensive atherosclerotic disease with stenosis in the 80 -99% range involving the right ICA and in the 60-79% range involving the left carotid bifurcation - Will need vascular surgery evaluation once more stable 7) Hypothyroidism - Continue synthroid 8) E.coli UTI - Abx as above 9) F/E/N: - Feeds per surgery 10) Dispo: - Requires continued ICU care CODE STATUS: FULL CODE Visit type - Emergency Visit Emergency Visit: Yes ED Registration Date: 06/12/18 Care time: The patient presented to the Emergency Department on the above date and was hospitalized for further evaluation of their emergent condition. - New Patient This patient is new to me today: Yes Date on this admission: 06/28/18 - Critical Care Critical Care patient: Yes Total Critical Care Time (in minutes): 35 Critical Care Statement: The care of this patient involved high complexity decision making to prevent further life threatening deterioration of the patient 's condition and/or to evaluate & treat vital organ system(s) failure or risk of failure.
[2018-06-28] MEDS ORDERED: NOREPINEPHRINE BITARTRATE 4 MG/4 ML ML IV ONE (20:05)
--- NOTE | 2018-06-28 21:31 | PN ---
Physical Exam: SUBJECTIVE: Patient seen and examined this am and evening in icu. Remains sedated and intubated. Levophed slowly being weaned, MAP dropped to 48, resumed levophed. OBJECTIVE: Vital Signs Period Temp Pulse Resp BP Sys/De La O Pulse Ox Last 24 Hr 98.2 F-98.7 F 87-136 10-24 83-127/5-72 99-99 GENERAL: Intubated, NG Tube. HEAD: NC/AT NECK: Trachea midline. No JVD. LUNGS: B/L rhonchi. HEART: Irregular. ABDOMEN: Soft. Colostomy present. [place], stool overlying. EXTREMITIES: onycholysis, upper extremities swollen, bandages on feet b/l to prevent pressure ulcers. NEUROLOGICAL: N/A SKIN: dry, pallor. Bandages on feet b/l to prevent pressure ulcers. Laboratory Results - last 24 hr 06/27/18 06/27/18 06/28/18 11:44 21:57 05:30 WBC 12.1 H RBC 4.31 Hgb 10.4 L Hct 32.2 L MCV 74.8 L MCH 24.2 L MCHC 32.4 RDW 30.3 H Plt Count 428 MPV 9.1 Sodium Potassium Chloride Carbon Dioxide Anion Gap BUN Creatinine Creat Clearance w eGFR POC Glucometer 165.05710 201.45883 Random Glucose Calcium Phosphorus Magnesium Total Bilirubin AST ALT Alkaline Phosphatase Total Protein Albumin 06/28/18 06/28/18 06/28/18 05:30 11:48 17:00 WBC RBC Hgb Hct MCV MCH MCHC RDW Plt Count MPV Sodium 136 Potassium 3.5 Chloride 103 Carbon Dioxide 26 Anion Gap 7 L BUN 19 H Creatinine 0.5 L Creat Clearance w eGFR > 60 POC Glucometer 230.55634 261.25058 Random Glucose 215 H Calcium 7.9 L Phosphorus 2.8 Magnesium 2.0 Total Bilirubin 0.7 AST 11 L ALT 10 L Alkaline Phosphatase 97 Total Protein 4.3 L Albumin 1.3 L Active Medications Generic Name Dose Route Start Last Admin Trade Name Freq PRN Reason Stop Dose Admin Albuterol/Ipratropium 1 amp 06/22/18 17:53 Duoneb - NEB Q6H PRN SHORTNESS OF BREATH Chlorhexidine Gluconate 1 applic 06/22/18 22:00 06/27/18 21:58 Hibiclens For Decolonization - TP 1 applic HS REED Administration Chlorhexidine Gluconate 15 ml 06/23/18 10:00 06/28/18 09:30 Peridex - MM 15 ml BID REED Administration Fentanyl 25 mcg 06/28/18 16:32 Sublimaze Injection - IVPUSH 06/29/18 16:44 Q6H PRN PAIN LEVEL 6-10 Heparin Sodium (Porcine) 5,000 unit 06/22/18 22:00 06/28/18 09:27 Heparin - SQ 5,000 unit BID REED Administration Hydrocortisone Sodium Succinate 25 mg 06/27/18 22:00 06/28/18 09:30 Solu-Cortef - IVPUSH 06/29/18 10:01 25 mg Q12H REED Administration Metronidazole 500 mg in 100 mls @ 100 mls/hr 06/22/18 21:00 06/28/18 20:01 Flagyl 500mg Premixed Ivpb - IVPB 100 mls/hr Q6H-IV REED Administration Propofol 1,000,000 mcg in 100 mls @ 1.894 mls/hr 06/22/18 18:15 06/28/18 13: 10 Diprivan - IVPB 10 mcg/kg/min TITR REED 3.788 mls/hr Administration Protocol 5 MCG/KG/MIN Piperacillin Sod/Tazobactam 50 mls @ 100 mls/hr 06/23/18 02:00 06/28/18 17:16 Sod 3.375 gm/ Dextrose IVPB 100 mls/hr Q8H-IV REED Administration Protocol Norepinephrine Bitartrate 16, 1,000 mls @ 18.75 mls/hr 06/25/18 06:40 18:22 000 mcg/ Sodium Chloride IV 10 mcg/min TITR REED 37.5 mls/hr Titration Protocol 5 MCG/MIN Caspofungin 50 mg/ Sodium 250 mls @ 250 mls/hr 06/26/18 10:00 06/28/18 09:27 Chloride IVPB 250 mls/hr DAILY REED Administration Insulin Aspart 1 vial 06/22/18 22:00 06/28/18 17:16 Novolog Vial Sliding Scale - SQ 6 units ACHS REED Administration Protocol Levothyroxine Sodium 44 mcg 06/23/18 07:00 06/28/18 06:20 Synthroid Injection - IVPUSH 44 mcg 0700 REED Administration Ondansetron HCl 4 mg 06/22/18 17:53 Zofran Injection IVPUSH Q6H PRN NAUSEA Pantoprazole Sodium 40 mg 06/23/18 10:00 06/28/18 09:30 Protonix Iv IVPUSH 40 mg DAILY REED Administration ASSESSMENT/PLAN: Ms. Singh is an 87 y/o lady with a past medical history of A. fib (no AC), CVA , breast cancer, hypothyroidism, iron deficiency anemia, and DM. Pt has a h/o occult GI bleeding requiring blood transfusions. Pt has had a recent development of severe microcytic anemia and heme + stool. Has been on aspirin chronically for A fib. Has not had any specific GI complaints and has refused GI workups in past. Pt was referred to [facility] for a colonoscopy to r/o any GI bleed. Pt developed a perforation of her rectosigmoid colon s/p colonoscopy. Dr Lora, General Surgeon, was notified and pt was transfered from [facility] to [facility]. An exploratory laparotomy was performed where surgical resection of the rectosigmoid colon with closure of the anorectal stump and formation of an end colostomy Neuro: -Intubated and Sedated. Propofol and Fentanyl -Levophed--> 10 mcg/min G.I: -Colonic perforation, fecal peritonitis -S/P Lopez procedure POD #6 -Continue empiric zosyn/ flagyl per Dr Saini, ID -Caspofungin -ICU monitoring -Protonix 40 -Enteral Feeds PULM: -Intubated -Duoneb 1 AMP NEB Q6H -Solu-cortef 25 mg IVPB Q12H -Chest physiotherapy Chest XRAY 06/28/18- Left hemithorax opacification resolved. Aeration of left lung. -Albuterol/Mucomyst AFIB: Home Meds- ASA 325, Cardizem 180 PO Daily, Tenormin 50 MG PO Daily. Per Cardiology Dr Rodriguez/All: B-Blockers to assist with rate control hemodynamics permitting Should be on A/C unless contraindicated. Occult bleeding but source unknown, will discuss with icu team if A/C permitted. FEN 60 mls/hr NS- Fluids D/C'ed today Monitor Electrolytes Enterel Feeds Osmolite DVT ppx: 5,000 unit SQ BID Dispo- continue to monitor in icu. Visit type - Emergency Visit Emergency Visit: Yes ED Registration Date: 06/12/18 Care time: The patient presented to the Emergency Department on the above date and was hospitalized for further evaluation of their emergent condition. - New Patient This patient is new to me today: No - Critical Care Critical Care patient: Yes Total Critical Care Time (in minutes): 35 Critical Care Statement: The care of this patient involved high complexity decision making to prevent further life threatening deterioration of the patient 's condition and/or to evaluate & treat vital organ system(s) failure or risk of failure.
[2018-06-28] MEDS: CHLORHEXIDINE GLUCONATE 4% CLEANSER FOR DECOLONIZATION TP SCH (21:59)
[2018-06-29] MEDS: NOREPINEPHRINE BITARTRATE 16,000 MCG in SODIUM CHLORIDE 0.45% 984 ML IV SCH ×2 (00:30→07:18)
[2018-06-29] MEDS: PIPERACILLIN/TAZOB 3.375 GM 3.375 GM in DEXTROSE 5%-WATER - 50 ML IVPB SCH ×3 (02:09→17:16)
[2018-06-29] MEDS: PROPOFOL 1,000,000 MCG/100 ML VIAL IVPB SCH ×2 (03:30→15:06)
[2018-06-29] MEDS ORDERED: PT OWN MED DRAWER 7, Y5N ONE ×2 (05:16→09:32)
[2018-06-29] MEDS: LEVOTHYROXINE SODIUM 100 MCG VIAL IVPUSH SCH (06:19)
[2018-06-29] MEDS: INSULIN SLIDING SCALE (NOVOLOG) 1 VIAL SQ SCH ×4 (06:21→22:02)
[2018-06-29 06:24] LABS: BASO % 0.1 % (0-2.0); HEMATOCRIT 31.1 % (32.4-45.2); HEMOGLOBIN 10.1 GM/dL (10.7-15.3); LYMPH % 2.6 % (8-40); MCHC 32.5 g/dl (32.0-36.0); MEAN CELL VOLUME 73.9 fl (80-96); MEAN PLT VOLUME 8.6 fl (7.5-11.1); NEUT % 92.3 % (42.8-82.8); PLATELET COUNT 403 K/MM3 (134-434); RBC 4.21 M/mm3 (3.60-5.2); RDW 30.8 % (11.6-15.6); WHITE BLOOD COUNT 14.1 K/mm3 (4.0-10.0)
[2018-06-29 07:21] LABS: CHLORIDE 105 mmol/L (98-107); POTASSIUM 3.4 mmol/L (3.5-5.1); SODIUM 141 mmol/L (136-145)
[2018-06-29 07:32] LABS: ALBUMIN 1.2 g/dl (3.4-5.0); ALK PHOS 98 U/L (45-117); ANION GAP 10 (8-16); BILIRUBIN,TOTAL 0.7 mg/dL (0.2-1.0); BLOOD UREA NITROGEN 16 mg/dL (7-18); CALCIUM 7.5 mg/dL (8.5-10.1); CO2 26 mmol/L (21-32); CREATININE 0.4 mg/dL (0.55-1.02); GLUCOSE,RANDOM 204 mg/dL (74-106); PHOSPHOROUS 1.5 mg/dL (2.5-4.9); SGOT/AST 11 U/L (15-37); SGPT/ALT 7 U/L (12-78)
[2018-06-29] MEDS ORDERED: SODIUM CHLORIDE 500 ML IV STA (08:33)
[2018-06-29] MEDS ORDERED: NAPH,MB-DB/K PH,MBDB POWDER PACKET PO ONE (09:14)
[2018-06-29] MEDS: HEPARIN NA (PORCINE) 5,000 UNITS/ML 1ML VIAL SQ SCH ×2 (09:15→22:01)
[2018-06-29] MEDS: PANTOPRAZOLE SODIUM 40 MG VIAL IVPUSH SCH (09:17)
[2018-06-29] MEDS: CHLORHEXIDINE GLUCONATE 0.12% 15ML CUP MM SCH ×2 (09:18→22:02)
[2018-06-29] MEDS: HYDROCORTISONE SOD SUCCINATE 100 MG/2 ML VIAL IVPUSH SCH (09:19)
[2018-06-29] MEDS ORDERED: POTASSIUM CHLORIDE ORAL LIQUID 20 MEQ/15 ML PO ONE (09:30)
--- NOTE | 2018-06-29 10:15 | PN ---
Progress Note (short form) - Note Progress Note: Attending Surgeon POD#7 Remains vented in the ICU on pressors; arousable; tolerating feedssoft; wound intact VSS AF abdo-open and fascia intact; some granulation tissue; ostomy viable and functioning; o/w no change labs/I/O noted IMP: stable post op PLAN: As per ICU team and medical consultants; continue wound care and drain and antibiotics. Frederick Lora MD FACS
[2018-06-29 10:31] LABS: ANISOCYTOSIS 2+; MACROCYTOSIS 0; PLATELET ESTIMATE NORMAL
[2018-06-29] MEDS: CASPOFUNGIN ACETATE 50 MG in SODIUM CHLORIDE 250 ML IVPB SCH (10:39)
[2018-06-29] MEDS ORDERED: ALBUMIN HUMAN 25% 100 ML VIAL IVPB SCH (11:45)
[2018-06-29] MEDS: HYDROCORTISONE SOD SUCCINATE 100 MG/2 ML VIAL IVPB SCH (12:09)
--- NOTE | 2018-06-29 12:29 | PN ---
Teaching Attending Note Name of Resident: Alfredo Rodriguez ATTENDING PHYSICIAN STATEMENT I saw and evaluated the patient. I reviewed the resident's note and discussed the case with the resident. I agree with the resident's findings and plan as documented. SUBJECTIVE: Pt seen and examined in the ICU. Remains intubated, sedated. Pressor requirements increased overnight. OBJECTIVE: Vital Signs Period Temp Pulse Resp BP Sys/De La O Pulse Ox Last 24 Hr 98.2 F-99.3 F 87-121 10-20 88-135/5-67 98-99 Intake & Output 06/26/18 06/27/18 06/28/18 06/29/18 23:59 23:59 23:59 23:59 Intake Total 2431.5 1889.8 4010.0 717 Output Total 2070 1150 1200 650 Balance 361.5 739.8 2810.0 67 Weight 75.3 kg 75.6 kg 76.566 kg 74.049 kg Gen: intubated, sedated Heart: tachycardic, regular Lung: scattered rhonchi Abd: soft, +ostomy pink with stool output Ext: + edema CBC, BMP 06/29/18 05:30 06/29/18 05:30 Active Medications Albumin Human (Albumin Human 25% -) 25 gm IVPB Q6H-IV REED Stop: 06/30/18 03:01 Albuterol/Ipratropium (Duoneb -) 1 amp NEB Q6H PRN PRN Reason: SHORTNESS OF BREATH Chlorhexidine Gluconate (Hibiclens For Decolonization -) 1 applic TP HS [facility] Last Admin: 06/28/18 21:59 Dose: 1 applic Chlorhexidine Gluconate (Peridex -) 15 ml MM BID RE[facility] Last Admin: 06/29/18 09:18 Dose: 15 ml Fentanyl (Sublimaze Injection -) 50 mcg IVPUSH ONCE ONE Stop: 06/28/18 12:20 Heparin Sodium (Porcine) (Heparin -) 5,000 unit SQ BID [facility] Last Admin: 06/29/18 09:15 Dose: 5,000 unit Hydrocortisone Sodium Succinate (Solu-Cortef -) 25 mg IVPB BID@0000,1200 [facility] Last Admin: 06/29/18 12:09 Dose: 25 mg Metronidazole (Flagyl 500mg Premixed Ivpb -) 500 mg in 100 mls @ 100 mls/hr IVPB Q6H-IV REED Last Admin: 06/29/18 08:29 Dose: 100 mls/hr Propofol (Diprivan -) 1,000,000 mcg in 100 mls @ 1.894 mls/hr IVPB TITR REED; Protocol Last Admin: 06/29/18 03:30 Dose: 10 mcg/kg/min, 3.788 mls/hr Piperacillin Sod/Tazobactam (Sod 3.375 gm/ Dextrose) 50 mls @ 100 mls/hr IVPB Q8H-IV REED; Protocol Last Admin: 06/29/18 09:50 Dose: 100 mls/hr Norepinephrine Bitartrate 16, (000 mcg/ Sodium Chloride) 1,000 mls @ 18.75 mls/ hr IV TITR REED; Protocol Last Titration: 06/29/18 11:27 Dose: 4 mcg/min, 15 mls/hr Caspofungin 50 mg/ Sodium (Chloride) 250 mls @ 250 mls/hr IVPB DAILY [facility] Last Admin: 06/29/18 10:39 Dose: 250 mls/hr Insulin Aspart (Novolog Vial Sliding Scale -) 1 vial SQ ACHS [facility]; Protocol Last Admin: 06/29/18 12:07 Dose: 8 units Levothyroxine Sodium (Synthroid Injection -) 44 mcg IVPUSH 0700 [facility] Last Admin: 06/29/18 06:19 Dose: 44 mcg Ondansetron HCl (Zofran Injection) 4 mg IVPUSH Q6H PRN PRN Reason: NAUSEA Pantoprazole Sodium (Protonix Iv) 40 mg IVPUSH DAILY [facility] Last Admin: 06/29/18 09:17 Dose: 40 mg ASSESSMENT AND PLAN: Sigmoid Colon Rupture Fecal Peritonitis Septic Shock Acute Hypoxic and Hypercapneic Respiratory Failure Acute on Chronic Diastolic Heart Failure Pulmonary HTN CAD Atrial Fibrillation with RVR Hyponatremia Hypothyroidism UTI Atelectasis - continue antibiotics - IVF to keep CVP 8-12 - pressor support to maintain MAP >65 - tapering stress dose steroids - inhaled bronchodilators - rate control - continue anticoagulation - taper FiO2 to keep Spo2 >90% - monitor ostomy output - spontaneous breathing trials as tolerated - enteral feeds - DVT/GI prophylaxis - continue ICU monitoring critical care time spent in reviewing chart, evaluating patient and formulating plan 35 min
--- NOTE | 2018-06-29 12:40 | PN ---
Progress Note, Physician History of Present Illness: Remains intubated and arousable s/p Lopez's procedure and fecal peritonitis. Pressor requirements increased and steroids decreased. Episodes of rapid afib. - Current Medication List Current Medications: Active Medications Albumin Human (Albumin Human 25% -) 25 gm IVPB Q6H-IV REED Stop: 06/30/18 03:01 Albuterol/Ipratropium (Duoneb -) 1 amp NEB Q6H PRN PRN Reason: SHORTNESS OF BREATH Chlorhexidine Gluconate (Hibiclens For Decolonization -) 1 applic TP HS [facility] Last Admin: 06/28/18 21:59 Dose: 1 applic Chlorhexidine Gluconate (Peridex -) 15 ml MM BID [facility] Last Admin: 06/29/18 09:18 Dose: 15 ml Fentanyl (Sublimaze Injection -) 50 mcg IVPUSH Q2H PRN PRN Reason: PAIN Stop: 06/30/18 12:29 Heparin Sodium (Porcine) (Heparin -) 5,000 unit SQ BID [facility] Last Admin: 06/29/18 09:15 Dose: 5,000 unit Hydrocortisone Sodium Succinate (Solu-Cortef -) 25 mg IVPB BID@0000,1200 [facility] Last Admin: 06/29/18 12:09 Dose: 25 mg Metronidazole (Flagyl 500mg Premixed Ivpb -) 500 mg in 100 mls @ 100 mls/hr IVPB Q6H-IV REED Last Admin: 06/29/18 08:29 Dose: 100 mls/hr Propofol (Diprivan -) 1,000,000 mcg in 100 mls @ 1.894 mls/hr IVPB TITR [facility]; Protocol Last Admin: 06/29/18 03:30 Dose: 10 mcg/kg/min, 3.788 mls/hr Piperacillin Sod/Tazobactam (Sod 3.375 gm/ Dextrose) 50 mls @ 100 mls/hr IVPB Q8H-IV RE[facility]; Protocol Last Admin: 06/29/18 09:50 Dose: 100 mls/hr Norepinephrine Bitartrate 16, (000 mcg/ Sodium Chloride) 1,000 mls @ 18.75 mls/ hr IV TITR RE[facility]; Protocol Last Titration: 06/29/18 11:27 Dose: 4 mcg/min, 15 mls/hr Caspofungin 50 mg/ Sodium (Chloride) 250 mls @ 250 mls/hr IVPB DAILY [facility] Last Admin: 06/29/18 10:39 Dose: 250 mls/hr Insulin Aspart (Novolog Vial Sliding Scale -) 1 vial SQ ACHS [facility]; Protocol Last Admin: 06/29/18 12:07 Dose: 8 units Levothyroxine Sodium (Synthroid Injection -) 44 mcg IVPUSH 0700 [facility] Last Admin: 06/29/18 06:19 Dose: 44 mcg Ondansetron HCl (Zofran Injection) 4 mg IVPUSH Q6H PRN PRN Reason: NAUSEA Pantoprazole Sodium (Protonix Iv) 40 mg IVPUSH DAILY [facility] Last Admin: 06/29/18 09:17 Dose: 40 mg - Objective Vital Signs: Vital Signs Temperature 98.8 F 06/29/18 07:00 Pulse Rate 127 H 06/29/18 12:00 Respiratory Rate 18 06/29/18 12:25 Blood Pressure 111/54 06/29/18 12:00 O2 Sat by Pulse Oximetry (%) 98 06/29/18 08:33 Constitutional: Yes: No Distress, Calm Neck: Yes: Supple Cardiovascular: Yes: Tachycardia, Pulse Irregular Respiratory: Yes: Diminished, Intubated, Mechanically Ventilated, Rhonchi Gastrointestinal: Yes: Normal Bowel Sounds, Soft Edema: Yes Edema: LLE: 1+, RLE: 1+ Labs: CBC, BMP 06/29/18 05:30 06/29/18 05:30 INR, PTT INR 1.27 (0.82-1.09) H 06/12/18 07:47 - ....Imaging EKG: Report Reviewed (Tele: Rapid afib) Problem List - Problems (1) Acute on chronic diastolic heart failure Code(s): I50.33 - ACUTE ON CHRONIC DIASTOLIC (CONGESTIVE) HEART FAILURE (2) Atrial fibrillation Code(s): I48.91 - UNSPECIFIED ATRIAL FIBRILLATION Qualifiers: Atrial fibrillation type: persistent Qualified Code(s): I48.1 - Persistent atrial fibrillation (3) Pleural effusion Code(s): J90 - PLEURAL EFFUSION, NOT ELSEWHERE CLASSIFIED (4) Hypothyroidism Code(s): E03.9 - HYPOTHYROIDISM, UNSPECIFIED Qualifiers: Hypothyroidism type: unspecified Qualified Code(s): E03.9 - Hypothyroidism , unspecified (5) Perforation of colon as colonoscopy complication Code(s): K63.1 - PERFORATION OF INTESTINE (NONTRAUMATIC); K91.71 - ACCIDENTAL PNCTR & LAC OF A DGSTV SYS ORG DUR DGSTV SYS PROC (6) Status post Sam procedure Code(s): Z93.3 - COLOSTOMY STATUS (7) Acute on chronic respiratory failure with hypoxia and hypercapnia Code(s): J96.21 - ACUTE AND CHRONIC RESPIRATORY FAILURE WITH HYPOXIA; J96.22 - ACUTE AND CHRONIC RESPIRATORY FAILURE WITH HYPERCAPNIA Assessment/Plan cta of chest: no CT evidence of pulmonary embolism, pulmonary vascular congestion with cardiomegaly, bilateral pleural effusion Head CT (June 14 2018): no acute pathology echo LV WNL pleural effusion severe TR RVSP elevated PVR 1. Colonic perforation, fecal peritonitis, sepsis POD#7 post Lopez procedure 2. Septic shock 3. Acute hypoxic and hypercapneic respiratory failure referable to 4. Acute on chronic class II-III NYHA classification LV failure related to diastolic LV dysfunction 5. CAD angina pectoris 6. Severe TR with pulmonary HTN 7. Pleural effusions post right thoracentesis (transudate) 8. Persistent atrial fibrillation with periods of rapid ventricular response [id number] score of 5, not on A/C as patient has declined in past 9. Hypothyroidism 10. Carotid stenosis 11. Anemia 12. E. Coli UTI 13. Hyponatremia improved 14. Improved left Atelectasis PLAN: 1. Antibiotics and antifungals per the primary team/ID 2. Vent management as per ICU team, chest PT, bed percussion, mucomyst nebs, inhaled bronchodilators, taper off stress dose steroids 3. Titrate pressors to maintain MAP>65 mmHg, attempt to wean off as tolerated 4. Start amio 200 bid 5. Diuretics/Lasix as needed with caution in view of the above noted hyponatremia 6. As outlined in prior notes considering the above noted [id number] score of 5 A/C recommended unless it is absolutely contraindicated 7. Enteral feeds, DVT/GI prophylaxis, spontaneous breathing trials as tolerated , monitor ostomy output
--- NOTE | 2018-06-29 12:52 | PN ---
Physical Exam: SUBJECTIVE: Patient seen and examined in ICU. Remains intubated, sedated, pressor requirement increased overnight. Events: - Rapid A fib, runs of svt OBJECTIVE: Vital Signs Period Temp Pulse Resp BP Sys/De La O Pulse Ox Last 24 Hr 98.2 F-99.3 F 87-127 10-20 88-135/5-67 98-99 PE Neuro: intubated, sedated HEENT: OG tube Pulm: diminished MV CV: s1 s2 tachycardia Abd: soft, midline incision intact, drain with yellow output : kapoor jose colored Ext: upper and lower ext swelling Skin: weeping Laboratory Results - last 24 hr 06/28/18 06/28/18 06/29/18 17:00 21:15 05:30 WBC 14.1 H RBC 4.21 Hgb 10.1 L Hct 31.1 L MCV 73.9 L MCH 24.0 L MCHC 32.5 RDW 30.8 H Plt Count 403 MPV 8.6 Absolute Neuts (auto) 13.0 Neutrophils % 92.3 H Neutrophils % (Manual) 92.8 H Band Neutrophils % 0.0 Lymphocytes % 2.6 L D Lymphocytes % (Manual) 1.0 L D Monocytes % 5.0 Monocytes % (Manual) 6 D Eosinophils % 0.0 D Eosinophils % (Manual) 0.0 Basophils % 0.1 D Basophils % (Manual) 0.0 Myelocytes % (Man) 0 Promyelocytes % (Man) 0 Blast Cells % (Manual) 0 Nucleated RBC % 0 Metamyelocytes 0 Hypochromia 1+ Platelet Estimate Normal Platelet Comment Present Polychromasia 1+ Poikilocytosis 1+ Anisocytosis 2+ Microcytosis 1+ Macrocytosis 0 Tang Cells 1+ Sodium Potassium Chloride Carbon Dioxide Anion Gap BUN Creatinine Creat Clearance w eGFR POC Glucometer 261.63574 244.17710 Random Glucose Calcium Phosphorus Magnesium Total Bilirubin AST ALT Alkaline Phosphatase Total Protein Albumin 06/29/18 06/29/18 06/29/18 05:30 06:20 11:39 WBC RBC Hgb Hct MCV MCH MCHC RDW Plt Count MPV Absolute Neuts (auto) Neutrophils % Neutrophils % (Manual) Band Neutrophils % Lymphocytes % Lymphocytes % (Manual) Monocytes % Monocytes % (Manual) Eosinophils % Eosinophils % (Manual) Basophils % Basophils % (Manual) Myelocytes % (Man) Promyelocytes % (Man) Blast Cells % (Manual) Nucleated RBC % Metamyelocytes Hypochromia Platelet Estimate Platelet Comment Polychromasia Poikilocytosis Anisocytosis Microcytosis Macrocytosis [place] Cells Sodium 141 Potassium 3.4 L Chloride 105 Carbon Dioxide 26 Anion Gap 10 BUN 16 Creatinine 0.4 L Creat Clearance w eGFR > 60 POC Glucometer 240.19429 309.55277 Random Glucose 204 H Calcium 7.5 L Phosphorus 1.5 L Magnesium 2.0 Total Bilirubin 0.7 AST 11 L ALT 7 L Alkaline Phosphatase 98 Total Protein 4.0 L Albumin 1.2 L Active Medications Generic Name Dose Route Start Last Admin Trade Name Freq PRN Reason Stop Dose Admin Albumin Human 25 gm 06/29/18 11:45 Albumin Human 25% - IVPB 06/30/18 03:01 Q6H-IV REED Albuterol/Ipratropium 1 amp 06/22/18 17:53 Duoneb - NEB Q6H PRN SHORTNESS OF BREATH Amiodarone HCl 200 mg 06/29/18 12:40 Cordarone - PO DAILY REED Chlorhexidine Gluconate 1 applic 06/22/18 22:00 06/28/18 21:59 Hibiclens For Decolonization - TP 1 applic HS REED Administration Chlorhexidine Gluconate 15 ml 06/23/18 10:00 06/29/18 09:18 Peridex - MM 15 ml BID REED Administration Fentanyl 50 mcg 06/29/18 12:30 Sublimaze Injection - IVPUSH 06/30/18 12:29 Q2H PRN PAIN Heparin Sodium (Porcine) 5,000 unit 06/22/18 22:00 06/29/18 09:15 Heparin - SQ 5,000 unit BID REED Administration Hydrocortisone Sodium Succinate 25 mg 06/29/18 12:00 06/29/18 12:09 Solu-Cortef - IVPB 25 mg BID@0000,1200 REED Administration Metronidazole 500 mg in 100 mls @ 100 mls/hr 06/22/18 21:00 06/29/18 08:29 Flagyl 500mg Premixed Ivpb - IVPB 100 mls/hr Q6H-IV REED Administration Propofol 1,000,000 mcg in 100 mls @ 1.894 mls/hr 06/22/18 18:15 06/29/18 03: 30 Diprivan - IVPB 10 mcg/kg/min TITR REED 3.788 mls/hr Administration Protocol 5 MCG/KG/MIN Piperacillin Sod/Tazobactam 50 mls @ 100 mls/hr 06/23/18 02:00 06/29/18 09:50 Sod 3.375 gm/ Dextrose IVPB 100 mls/hr Q8H-IV REED Administration Protocol Norepinephrine Bitartrate 16, 1,000 mls @ 18.75 mls/hr 06/25/18 06:40 11:27 000 mcg/ Sodium Chloride IV 4 mcg/min TITR REED 15 mls/hr Titration Protocol 5 MCG/MIN Caspofungin 50 mg/ Sodium 250 mls @ 250 mls/hr 06/26/18 10:00 06/29/18 10:39 Chloride IVPB 250 mls/hr DAILY REED Administration Insulin Aspart 1 vial 06/22/18 22:00 06/29/18 12:07 Novolog Vial Sliding Scale - SQ 8 units ACHS REED Administration Protocol Levothyroxine Sodium 44 mcg 06/23/18 07:00 06/29/18 06:19 Synthroid Injection - IVPUSH 44 mcg 0700 REED Administration Ondansetron HCl 4 mg 06/22/18 17:53 Zofran Injection IVPUSH Q6H PRN NAUSEA Pantoprazole Sodium 40 mg 06/23/18 10:00 06/29/18 09:17 Protonix Iv IVPUSH 40 mg DAILY REED Administration Assessment: 87 year old female with pmhx diastolic CHF, A fib, hypothyroid, CVA , breast CA, iron deficiency, DM II initially seen in [facility] lethargy and blood transfusion. Referred for colonoscopy at [facility], post procedure distention concern for perforation, transferred to [facility] for ex lap and surgical resection of rectosigmoid colon with end colostomy hospital course c/b septic shock with ongoing pressor requirement. Plan: 1. Sigmoid colonic perforation s/p colonoscopy 06/22, septic shock, fecal peritonitis - S/p Lopez procedure on 06/22/18 - Continue Caspofungin - Continue Flagyl - Continue Zosyn - Continue Levo titrate MAP >65 - Goal CVP 8-12 - Albumin x3 doses - Taper stress steroids - Monitor leukocytosis, if febrile or increase obtain CTAP r/o abscess 2. Acute hypercapneic and hypoxic respiratory failure - Remains intubated - Daily wean trials - Sedation vacation - Xray improved 3. Acute on chronic diastolic heart failure - Resume diuresis once off pressors 4. A.fib, uncontrolled - Start amiodarone 200mg BID - [id number] score of 5 A/C recommended unless it is absolutely contraindicated , will defer starting to GI/surgery/cardiology 5. B/l pneumonia - Continue abx as above 6. Carotid artery stenosis - Carotid doppler with extensive atherosclerotic disease with stenosis in the 80 -99% range involving the right ICA and in the 60-79% range involving the left carotid bifurcation - Will need vascular surgery evaluation once more stable 7. Hypothyroidism, sick euthyroid - Continue synthroid 8. E.coli UTI - Abx as above 9. Nutrition - TF as listed 10. Electrolytes - Hypokalemia: replete 20meq x1 - Hypophosphatemia replet k phos CODE STATUS: FULL CODE - Visit type - Emergency Visit Emergency Visit: Yes ED Registration Date: 06/12/18 Care time: The patient presented to the Emergency Department on the above date and was hospitalized for further evaluation of their emergent condition. - New Patient This patient is new to me today: No - Critical Care Critical Care patient: No
[2018-06-29] MEDS: AMIODARONE HCL 200 MG TABLET (FP) PO SCH (13:40)
[2018-06-29] MEDS: ALBUMIN HUMAN 25% 100 ML VIAL IVPB SCH (17:31)
--- NOTE | 2018-06-29 19:03 | PN ---
Physical Exam: SUBJECTIVE: Patient seen and examined this am and evening in icu. Pt remains intubated and sedated. Leveophed back up tp 8 mcg/hr as pt's bp fell too low. Soha Glod and Ed by bedside. OBJECTIVE: Vital Signs Period Temp Pulse Resp BP Sys/De La O Pulse Ox Last 24 Hr 98.2 F-99.5 F 100-127 10-20 96-135/5-68 98-99 GENERAL: Intubated, NG Tube. HEAD: NC/AT NECK: Trachea midline. No JVD. LUNGS: B/L rhonchi. HEART: Irregular. ABDOMEN: Soft. Colostomy present. [place], stool overlying. EXTREMITIES: onycholysis, upper extremities swollen, bandages on feet b/l to prevent pressure ulcers. NEUROLOGICAL: N/A SKIN: dry, pallor. Bandages on feet b/l to prevent pressure ulcers. Laboratory Results - last 24 hr 06/28/18 06/28/18 06/29/18 06:07 21:15 05:30 WBC 14.1 H RBC 4.21 Hgb 10.1 L Hct 31.1 L MCV 73.9 L MCH 24.0 L MCHC 32.5 RDW 30.8 H Plt Count 403 MPV 8.6 Absolute Neuts (auto) 13.0 Neutrophils % 92.3 H Neutrophils % (Manual) 92.8 H Band Neutrophils % 0.0 Lymphocytes % 2.6 L D Lymphocytes % (Manual) 1.0 L D Monocytes % 5.0 Monocytes % (Manual) 6 D Eosinophils % 0.0 D Eosinophils % (Manual) 0.0 Basophils % 0.1 D Basophils % (Manual) 0.0 Myelocytes % (Man) 0 Promyelocytes % (Man) 0 Blast Cells % (Manual) 0 Nucleated RBC % 0 Metamyelocytes 0 Hypochromia 1+ Platelet Estimate Normal Platelet Comment Present Polychromasia 1+ Poikilocytosis 1+ Anisocytosis 2+ Microcytosis 1+ Macrocytosis 0 Tang Cells 1+ Sodium Potassium Chloride Carbon Dioxide Anion Gap BUN Creatinine Creat Clearance w eGFR POC Glucometer [phone] Random Glucose Calcium Phosphorus Magnesium Total Bilirubin AST ALT Alkaline Phosphatase Total Protein Albumin 06/29/18 06/29/18 06/29/18 05:30 06:20 11:39 WBC RBC Hgb Hct MCV MCH MCHC RDW Plt Count MPV Absolute Neuts (auto) Neutrophils % Neutrophils % (Manual) Band Neutrophils % Lymphocytes % Lymphocytes % (Manual) Monocytes % Monocytes % (Manual) Eosinophils % Eosinophils % (Manual) Basophils % Basophils % (Manual) Myelocytes % (Man) Promyelocytes % (Man) Blast Cells % (Manual) Nucleated RBC % Metamyelocytes Hypochromia Platelet Estimate Platelet Comment Polychromasia Poikilocytosis Anisocytosis Microcytosis Macrocytosis Tang Cells Sodium 141 Potassium 3.4 L Chloride 105 Carbon Dioxide 26 Anion Gap 10 BUN 16 Creatinine 0.4 L Creat Clearance w eGFR > 60 POC Glucometer 240.15293 [phone] Random Glucose 204 H Calcium 7.5 L Phosphorus 1.5 L Magnesium 2.0 Total Bilirubin 0.7 AST 11 L ALT 7 L Alkaline Phosphatase 98 Total Protein 4.0 L Albumin 1.2 L 06/29/18 17:05 WBC RBC Hgb Hct MCV MCH MCHC RDW Plt Count MPV Absolute Neuts (auto) Neutrophils % Neutrophils % (Manual) Band Neutrophils % Lymphocytes % Lymphocytes % (Manual) Monocytes % Monocytes % (Manual) Eosinophils % Eosinophils % (Manual) Basophils % Basophils % (Manual) Myelocytes % (Man) Promyelocytes % (Man) Blast Cells % (Manual) Nucleated RBC % Metamyelocytes Hypochromia Platelet Estimate Platelet Comment Polychromasia Poikilocytosis Anisocytosis Microcytosis Macrocytosis [place] Cells Sodium Potassium Chloride Carbon Dioxide Anion Gap BUN Creatinine Creat Clearance w eGFR POC Glucometer [phone] Random Glucose Calcium Phosphorus Magnesium Total Bilirubin AST ALT Alkaline Phosphatase Total Protein Albumin Active Medications Generic Name Dose Route Start Last Admin Trade Name Freq PRN Reason Stop Dose Admin Albumin Human 25 gm 06/29/18 18:00 06/29/18 17:31 Albumin Human 25% - IVPB 06/30/18 06:01 25 gm Q6H REED Administration Albuterol/Ipratropium 1 amp 06/22/18 17:53 Duoneb - NEB Q6H PRN SHORTNESS OF BREATH Amiodarone HCl 200 mg 06/29/18 12:40 06/29/18 13:40 Cordarone - PO 200 mg DAILY REED Administration Chlorhexidine Gluconate 1 applic 06/22/18 22:00 06/28/18 21:59 Hibiclens For Decolonization - TP 1 applic HS REED Administration Chlorhexidine Gluconate 15 ml 06/23/18 10:00 06/29/18 09:18 Peridex - MM 15 ml BID REED Administration Fentanyl 50 mcg 06/29/18 12:30 Sublimaze Injection - IVPUSH 06/30/18 12:29 Q2H PRN PAIN Heparin Sodium (Porcine) 5,000 unit 06/22/18 22:00 06/29/18 09:15 Heparin - SQ 5,000 unit BID REED Administration Hydrocortisone Sodium Succinate 25 mg 06/29/18 12:00 06/29/18 12:09 Solu-Cortef - IVPB 25 mg BID@0000,1200 REED Administration Metronidazole 500 mg in 100 mls @ 100 mls/hr 06/22/18 21:00 06/29/18 15:07 Flagyl 500mg Premixed Ivpb - IVPB 100 mls/hr Q6H-IV REED Administration Propofol 1,000,000 mcg in 100 mls @ 1.894 mls/hr 06/22/18 18:15 06/29/18 15: 06 Diprivan - IVPB 10 mcg/kg/min TITR REED 3.788 mls/hr Administration Protocol 5 MCG/KG/MIN Piperacillin Sod/Tazobactam 50 mls @ 100 mls/hr 06/23/18 02:00 06/29/18 17:16 Sod 3.375 gm/ Dextrose IVPB 100 mls/hr Q8H-IV REED Administration Protocol Norepinephrine Bitartrate 16, 1,000 mls @ 18.75 mls/hr 06/25/18 06:40 16:57 000 mcg/ Sodium Chloride IV 6 mcg/min TITR REED 22.5 mls/hr Titration Protocol 5 MCG/MIN Caspofungin 50 mg/ Sodium 250 mls @ 250 mls/hr 06/26/18 10:00 06/29/18 10:39 Chloride IVPB 250 mls/hr DAILY REED Administration Insulin Aspart 1 vial 06/22/18 22:00 06/29/18 17:18 Novolog Vial Sliding Scale - SQ 6 units ACHS REED Administration Protocol Levothyroxine Sodium 44 mcg 06/23/18 07:00 06/29/18 06:19 Synthroid Injection - IVPUSH 44 mcg 0700 REED Administration Ondansetron HCl 4 mg 06/22/18 17:53 Zofran Injection IVPUSH Q6H PRN NAUSEA Pantoprazole Sodium 40 mg 06/23/18 10:00 06/29/18 09:17 Protonix Iv IVPUSH 40 mg DAILY REED Administration ASSESSMENT/PLAN: Ms. Singh is an 87 y/o lady with a past medical history of A. fib (no AC), CVA , breast cancer, hypothyroidism, iron deficiency anemia, and DM. Pt has a h/o occult GI bleeding requiring blood transfusions. Pt has had a recent development of severe microcytic anemia and heme + stool. Has been on aspirin chronically for A fib. Has not had any specific GI complaints and has refused GI workups in past. Pt was referred to [facility] for a colonoscopy to r/o any GI bleed. Pt developed a perforation of her rectosigmoid colon s/p colonoscopy. Dr Lora, General Surgeon, was notified and pt was transfered from [facility] to [facility]. An exploratory laparotomy was performed where surgical resection of the rectosigmoid colon with closure of the anorectal stump and formation of an end colostomy Neuro: -Intubated and Sedated. Propofol and Fentanyl -Levophed--> 8 mcg/min [facility]: -Colonic perforation, fecal peritonitis -S/P Lopez procedure POD #7 -Continue empiric zosyn/ flagyl -Caspofungin -ICU monitoring -Protonix 40 mg po daily -Enteral Feeds PULM: -Intubated -Duoneb 1 AMP NEB Q6H -Solu-cortef 25 mg IVPB Q12H -Chest physiotherapy Chest XRAY 06/29/18- Left hemithorax opacification resolved. Aeration of left lung. No major changes since prior xray 06/28. No official read back yet. -Albuterol/Mucomyst AFIB: Amiodorone 200 mg started today per cardiology for Afib RVR FEN No Fluids Monitor Electrolytes Enterel Feeds Osmolite DVT ppx: 5,000 unit SQ BID Dispo- continue to monitor in icu. Visit type - Emergency Visit Emergency Visit: Yes ED Registration Date: 06/12/18 Care time: The patient presented to the Emergency Department on the above date and was hospitalized for further evaluation of their emergent condition. - New Patient This patient is new to me today: No - Critical Care Critical Care patient: Yes Total Critical Care Time (in minutes): 35 Critical Care Statement: The care of this patient involved high complexity decision making to prevent further life threatening deterioration of the patient 's condition and/or to evaluate & treat vital organ system(s) failure or risk of failure.
[2018-06-29] MEDS ORDERED: PIPERACILLIN/TAZOBACTAM 3.375 GM VIAL IVPB ONE (21:46)
[2018-06-29] MEDS ORDERED: DEXTROSE 5%-WATER - 50 ML IVPB ONE (21:46)
[2018-06-29] MEDS: CHLORHEXIDINE GLUCONATE 4% CLEANSER FOR DECOLONIZATION TP SCH (22:01)
--- NOTE | 2018-06-29 22:28 | PN ---
Progress Note, Physician History of Present Illness: Intubated Sedated on ventilator Afebrile Hypotensive on pressors WBC remains elevated Operative cultures Enterococcus, E. coli, yeast - Current Medication List Current Medications: Active Medications Albumin Human (Albumin Human 25% -) 25 gm IVPB Q6H [facility] Stop: 06/30/18 06:01 Last Admin: 06/29/18 17:31 Dose: 25 gm Albuterol/Ipratropium (Duoneb -) 1 amp NEB Q6H PRN PRN Reason: SHORTNESS OF BREATH Amiodarone HCl (Cordarone -) 200 mg PO DAILY [facility] Last Admin: 06/29/18 13:40 Dose: 200 mg Chlorhexidine Gluconate (Hibiclens For Decolonization -) 1 applic TP HS [facility] Last Admin: 06/29/18 22:01 Dose: 1 applic Chlorhexidine Gluconate (Peridex -) 15 ml MM BID [facility] Last Admin: 06/29/18 22:02 Dose: 15 ml Fentanyl (Sublimaze Injection -) 50 mcg IVPUSH Q2H PRN PRN Reason: PAIN Stop: 06/30/18 12:29 Heparin Sodium (Porcine) (Heparin -) 5,000 unit SQ BID [facility] Last Admin: 06/29/18 22:01 Dose: 5,000 unit Hydrocortisone Sodium Succinate (Solu-Cortef -) 25 mg IVPB BID@0000,1200 [facility] Last Admin: 06/29/18 12:09 Dose: 25 mg Metronidazole (Flagyl 500mg Premixed Ivpb -) 500 mg in 100 mls @ 100 mls/hr IVPB Q6H-IV [facility] Last Admin: 06/29/18 22:01 Dose: 100 mls/hr Propofol (Diprivan -) 1,000,000 mcg in 100 mls @ 1.894 mls/hr IVPB TITR [facility]; Protocol Last Admin: 06/29/18 15:06 Dose: 10 mcg/kg/min, 3.788 mls/hr Piperacillin Sod/Tazobactam (Sod 3.375 gm/ Dextrose) 50 mls @ 100 mls/hr IVPB Q8H-IV [facility]; Protocol Last Admin: 06/29/18 17:16 Dose: 100 mls/hr Norepinephrine Bitartrate 16, (000 mcg/ Sodium Chloride) 1,000 mls @ 18.75 mls/ hr IV TITR [facility]; Protocol Last Titration: 06/29/18 16:57 Dose: 6 mcg/min, 22.5 mls/hr Caspofungin 50 mg/ Sodium (Chloride) 250 mls @ 250 mls/hr IVPB DAILY [facility] Last Admin: 06/29/18 10:39 Dose: 250 mls/hr Insulin Aspart (Novolog Vial Sliding Scale -) 1 vial SQ ACHS [facility]; Protocol Last Admin: 06/29/18 22:02 Dose: 6 units Levothyroxine Sodium (Synthroid Injection -) 44 mcg IVPUSH 0700 [facility] Last Admin: 06/29/18 06:19 Dose: 44 mcg Ondansetron HCl (Zofran Injection) 4 mg IVPUSH Q6H PRN PRN Reason: NAUSEA Pantoprazole Sodium (Protonix Iv) 40 mg IVPUSH DAILY [facility] Last Admin: 06/29/18 09:17 Dose: 40 mg - Objective Vital Signs: Vital Signs Temperature 99.3 F 06/29/18 19:00 Pulse Rate 99 H 06/29/18 21:26 Respiratory Rate 14 06/29/18 21:24 Blood Pressure 136/60 06/29/18 20:00 O2 Sat by Pulse Oximetry (%) 99 06/29/18 21:26 Constitutional: Yes: No Distress Cardiovascular: Yes: Regular Rate and Rhythm, S1, S2 Respiratory: Yes: Mechanically Ventilated Gastrointestinal: Yes: Other (abominal wound packed + ostomy) Labs: CBC, BMP 06/29/18 05:30 06/29/18 05:30 INR, PTT INR 1.27 (0.82-1.09) H 06/12/18 07:47 Assessment/Plan POD #7 Lopez procedure Colonic perforation, fecal peritonitis Sepsis/ septic shock secondary to GI source Operative c/s Enterococcus, E coli, Yeast Pulmonary vascular congestion ? pneumonia Continue empiric zosyn/ flagyl / cancidas ICU monitoring Prognosis guarded
[2018-06-30] MEDS: HYDROCORTISONE SOD SUCCINATE 100 MG/2 ML VIAL IVPB SCH (00:37)
[2018-06-30] MEDS: ALBUMIN HUMAN 25% 100 ML VIAL IVPB SCH ×2 (00:39→06:10)
[2018-06-30] MEDS: PIPERACILLIN/TAZOB 3.375 GM 3.375 GM in DEXTROSE 5%-WATER - 50 ML IVPB SCH ×3 (01:41→17:18)
[2018-06-30] MEDS: PROPOFOL 1,000,000 MCG/100 ML VIAL IVPB SCH ×2 (04:00→22:48)
[2018-06-30 06:14] LABS: HEMATOCRIT 27.7 % (32.4-45.2); MCH 24.1 pg (25.7-33.7); MCHC 32.3 g/dl (32.0-36.0); MEAN CELL VOLUME 74.5 fl (80-96); PLATELET COUNT 345 K/MM3 (134-434); RBC 3.72 M/mm3 (3.60-5.2); RDW 31.2 % (11.6-15.6); WHITE BLOOD COUNT 12.1 K/mm3 (4.0-10.0)
[2018-06-30] MEDS: INSULIN SLIDING SCALE (NOVOLOG) 1 VIAL SQ SCH ×4 (06:17→22:00)
[2018-06-30] MEDS ORDERED: PT OWN MED DRAWER 7, Y5N ONE ×2 (06:19→20:36)
[2018-06-30] MEDS: LEVOTHYROXINE SODIUM 100 MCG VIAL IVPUSH SCH (06:28)
[2018-06-30 06:32] LABS: CHLORIDE 105 mmol/L (98-107); POTASSIUM 3.8 mmol/L (3.5-5.1); SODIUM 139 mmol/L (136-145)
[2018-06-30 06:43] LABS: ALBUMIN 2.1 g/dl (3.4-5.0); ALK PHOS 94 U/L (45-117); ANION GAP 8 (8-16); BLOOD UREA NITROGEN 16 mg/dL (7-18); CALCIUM 7.8 mg/dL (8.5-10.1); CO2 26 mmol/L (21-32); CREATININE 0.4 mg/dL (0.55-1.02); GLUCOSE,RANDOM 272 mg/dL (74-106); PHOSPHOROUS 1.4 mg/dL (2.5-4.9); SGOT/AST 8 U/L (15-37); SGPT/ALT 7 U/L (12-78); TOT PROT 4.5 g/dl (6.4-8.2)
[2018-06-30] MEDS: NOREPINEPHRINE BITARTRATE 16,000 MCG in SODIUM CHLORIDE 0.45% 984 ML IV SCH (06:43)
--- NOTE | 2018-06-30 07:54 | PN ---
Progress Note (short form) - Note Progress Note: POD #8 Remains vented in the ICU. Pressors were discontinued at 4AM and her BP remains stable. No acute events per RN notes. Arousable to voice. Tolerating feeds (Osmolite). Last Vital Signs Temp Pulse Resp BP Pulse Ox 98.5 F 112 H 20 131/67 99 06/30/18 06:00 06/30/18 06:00 06/30/18 06:56 06/30/18 06:00 06/29/18 21:26 CBC, BMP 06/30/18 05:30 06/30/18 05:30 I/Os 06/29/18 06/29/18 06/30/18 06:00 18:29 06:00 RLQ drain 400 100 300 Kapoor 250 300 300 NGT 0 recorded 0 recorded 0 recorded Gen: sedated / vented, anisarca ABD: midline incision open with intermittent cassie to approximate umbilcus. Deep fascia intact. Minimal granulation tissue. Ostomy viable (pink, protruding, producing) : kapoor to gravity EXTREM: UE & LE edematous bilat. SCDs in place <Italo Miles - Last Filed: 06/30/18 08:17> - Note Progress Note: Covering for Dr. Lora: Pt seen in ICU. Remains intubated/vented but off pressors, opens eyes somewhat to voice but not responsive to questions. No sedation or pain meds at this time. Appears generally comfortable. TF going via NGT. Colostomy productive of soft/loose stool. Kapoor in place. Anasarca. Midline incision dressed, [place] sump drain present. Abdominal palpation without clear tenderness. A/P: POD8 from Sam's procedure for colonoscopic perforation with fecal peritonitis wean to extubate as able, or consider trach soon continue TF, monitor nutritional parameters wound dressing changes daily and prn replete lytes prn trend labs continue antibiotics per ID prognosis remains guarded This patient is critically ill. Time spent reviewing chart, examining patient, talking with providers and/or family and documentation is 35 minutes <Tito Suarez - Last Filed: 06/30/18 21:53> Problem List - Problems (1) Status post Sam procedure Assessment/Plan: POD #8 s/p Lopez's Procedure secondary to perforated sigmoid colon during colonoscopy for anemia work-up. Fecal peritonitis. Wean to extubate per ICU/Pulm - if unable to she will need a trach Monitor BP and restart pressor support PRN If BP remains stable for 24 hours, she could benefit from diuresis GI / DVT PPX Nutrition/Osmolite IV ABX per ID Monitor I/O's Correct elyte abnormalities PRN Dr. Guajardo is covering for Dr. Lora while he is away until Tuesday. Prognosis remains guarded. Code(s): Z93.3 - COLOSTOMY STATUS <Italo Miles - Last Filed: 06/30/18 08:17> - Problems (1) Perforation of colon as colonoscopy complication Code(s): K63.1 - PERFORATION OF INTESTINE (NONTRAUMATIC); K91.71 - ACCIDENTAL PNCTR & LAC OF A DGSTV SYS ORG DUR DGSTV SYS PROC (2) Acute on chronic respiratory failure with hypoxia and hypercapnia Code(s): J96.21 - ACUTE AND CHRONIC RESPIRATORY FAILURE WITH HYPOXIA; J96.22 - ACUTE AND CHRONIC RESPIRATORY FAILURE WITH HYPERCAPNIA (3) Atrial fibrillation Code(s): I48.91 - UNSPECIFIED ATRIAL FIBRILLATION Qualifiers: Atrial fibrillation type: persistent Qualified Code(s): I48.1 - Persistent atrial fibrillation (4) Acute on chronic diastolic heart failure Code(s): I50.33 - ACUTE ON CHRONIC DIASTOLIC (CONGESTIVE) HEART FAILURE (5) Hypothyroidism Code(s): E03.9 - HYPOTHYROIDISM, UNSPECIFIED Qualifiers: Hypothyroidism type: unspecified Qualified Code(s): E03.9 - Hypothyroidism , unspecified <Tito Suarez - Last Filed: 06/30/18 21:53>
[2018-06-30] MEDS ORDERED: NAPH,MB-DB/K PH,MBDB POWDER PACKET PO ONE (08:20)
[2018-06-30] MEDS ORDERED: DEXTROSE 5%-WATER - 50 ML IVPB ONE ×2 (08:28→16:35)
[2018-06-30] MEDS ORDERED: PIPERACILLIN/TAZOBACTAM 3.375 GM VIAL IVPB ONE ×2 (08:28→16:35)
[2018-06-30] MEDS: CASPOFUNGIN ACETATE 50 MG in SODIUM CHLORIDE 250 ML IVPB SCH (09:26)
--- NOTE | 2018-06-30 09:37 | PN ---
Physical Exam: SUBJECTIVE: Patient seen and examined in ICU. Off pressors since 4am. Remains sedated. Afebrile. OBJECTIVE: Vital Signs Period Temp Pulse Resp BP Sys/De La O Pulse Ox Last 24 Hr 98.1 F-99.5 F 99-129 10-20 96-166/43-78 99-100 PE Neuro: intubated, sedated HEENT: OG tube Pulm: diminished MV CV: s1 s2 tachycardia Abd: soft, midline incision intact, drain with yellow output +colostomy no formed stool : kapoor Ext: upper and lower ext swelling Skin: weeping Laboratory Results - last 24 hr 06/29/18 06/29/18 06/30/18 11:39 17:05 05:30 WBC 12.1 H RBC 3.72 Hgb 9.0 L Hct 27.7 L MCV 74.5 L MCH 24.1 L MCHC 32.3 RDW 31.2 H Plt Count 345 MPV 8.0 Neutrophils % (Manual) Band Neutrophils % Lymphocytes % (Manual) Monocytes % (Manual) Eosinophils % (Manual) Basophils % (Manual) Myelocytes % (Man) Promyelocytes % (Man) Blast Cells % (Manual) Nucleated RBC % Metamyelocytes Hypochromia Platelet Estimate Platelet Comment Polychromasia Poikilocytosis Anisocytosis Microcytosis Macrocytosis [place] Cells Sodium Potassium Chloride Carbon Dioxide Anion Gap BUN Creatinine Creat Clearance w eGFR POC Glucometer [phone] Random Glucose Calcium Phosphorus Magnesium Total Bilirubin AST ALT Alkaline Phosphatase Total Protein Albumin 06/30/18 05:30 WBC RBC Hgb Hct MCV MCH MCHC RDW Plt Count MPV Neutrophils % (Manual) Band Neutrophils % Lymphocytes % (Manual) Monocytes % (Manual) Eosinophils % (Manual) Basophils % (Manual) Myelocytes % (Man) Promyelocytes % (Man) Blast Cells % (Manual) Nucleated RBC % Metamyelocytes Hypochromia Platelet Estimate Platelet Comment Polychromasia Poikilocytosis Anisocytosis Microcytosis Macrocytosis [place] Cells Sodium 139 Potassium 3.8 Chloride 105 Carbon Dioxide 26 Anion Gap 8 BUN 16 Creatinine 0.4 L Creat Clearance w eGFR > 60 POC Glucometer Random Glucose 272 H Calcium 7.8 L Phosphorus 1.4 L Magnesium 2.0 Total Bilirubin 1.0 AST 8 L ALT 7 L Alkaline Phosphatase 94 Total Protein 4.5 L Albumin 2.1 L Active Medications Generic Name Dose Route Start Last Admin Trade Name Freq PRN Reason Stop Dose Admin Albuterol/Ipratropium 1 amp 06/22/18 17:53 Duoneb - NEB Q6H PRN SHORTNESS OF BREATH Amiodarone HCl 200 mg 06/29/18 12:40 06/29/18 13:40 Cordarone - PO 200 mg DAILY [facility] Administration Chlorhexidine Gluconate 1 applic 06/22/18 22:00 06/29/18 22:01 Hibiclens For Decolonization - TP 1 applic HS [facility] Administration Chlorhexidine Gluconate 15 ml 06/23/18 10:00 06/29/18 22:02 Peridex - MM 15 ml BID [facility] Administration Fentanyl 50 mcg 06/29/18 12:30 Sublimaze Injection - IVPUSH 06/30/18 12:29 Q2H PRN PAIN Heparin Sodium (Porcine) 5,000 unit 06/22/18 22:00 06/29/18 22:01 Heparin - SQ 5,000 unit BID [facility] Administration Hydrocortisone Sodium Succinate 25 mg 06/29/18 12:00 06/30/18 00:37 Solu-Cortef - IVPB 25 mg BID@0000,1200 [facility] Administration Metronidazole 500 mg in 100 mls @ 100 mls/hr 06/22/18 21:00 06/30/18 08:12 Flagyl 500mg Premixed Ivpb - IVPB 100 mls/hr Q6H-IV [facility] Administration Propofol 1,000,000 mcg in 100 mls @ 1.894 mls/hr 06/22/18 18:15 06/30/18 07: 00 Diprivan - IVPB 12 mcg/kg/min TITR [facility] 4.546 mls/hr Titration Protocol 5 MCG/KG/MIN Piperacillin Sod/Tazobactam 50 mls @ 100 mls/hr 06/23/18 02:00 06/30/18 01:41 Sod 3.375 gm/ Dextrose IVPB 100 mls/hr Q8H-IV [facility] Administration Protocol Norepinephrine Bitartrate 16, 1,000 mls @ 18.75 mls/hr 06/25/18 06:40 06:43 000 mcg/ Sodium Chloride IV Not Given TITR [facility] Protocol 5 MCG/MIN Caspofungin 50 mg/ Sodium 250 mls @ 250 mls/hr 06/26/18 10:00 06/29/18 10:39 Chloride IVPB 250 mls/hr DAILY [facility] Administration Insulin Aspart 1 vial 06/22/18 22:00 06/30/18 06:17 Novolog Vial Sliding Scale - SQ 8 units ACHS [facility] Administration Protocol Levothyroxine Sodium 44 mcg 06/23/18 07:00 06/30/18 06:28 Synthroid Injection - IVPUSH 44 mcg 0700 [facility] Administration Ondansetron HCl 4 mg 06/22/18 17:53 Zofran Injection IVPUSH Q6H PRN NAUSEA Pantoprazole Sodium 40 mg 06/23/18 10:00 06/29/18 09:17 Protonix Iv IVPUSH 40 mg DAILY [facility] Administration Assessment: 87 year old female with pmhx diastolic CHF, A fib, hypothyroid, CVA , breast CA, iron deficiency, DM II initially seen in [facility] lethargy and blood transfusion. Referred for colonoscopy at [facility], post procedure distention concern for perforation, transferred to [facility] for ex lap and surgical resection of rectosigmoid colon with end colostomy hospital course c/b septic shock with ongoing pressor requirement, off today. Plan: 1. Sigmoid colonic perforation s/p colonoscopy 06/22, septic shock, fecal peritonitis - S/p Lopez procedure on 06/22/18 - Continue Caspofungin - Continue Flagyl - Continue Zosyn - Taper stress steroids - Monitor leukocytosis, if febrile or increase obtain CTAP r/o abscess - Off pressors, restart PRN, MAP >65 2. Acute hypercapneic and hypoxic respiratory failure - Remains intubated - Daily wean trials, sedation vacation 3. Acute on chronic diastolic heart failure - If remains off pressors, consider resuming lasix 4. A.fib, uncontrolled - Continue amiodarone 200mg BID - [id number] score of 5 A/C recommended, consider once stable 5. B/l pneumonia - Continue abx as above 6. Hypothyroidism, sick euthyroid - Continue synthroid 7. E.coli UTI - Abx as above 8. Nutrition -Continue TF 9. Electrolytes - Hypokalemia: resolved - Hypophosphatemia replet k phos BID x2 doses 10. Carotid artery stenosis - Carotid doppler with extensive atherosclerotic disease with stenosis in the 80 -99% range involving the right ICA and in the 60-79% range involving the left carotid bifurcation - Will need vascular surgery evaluation once more stable CODE STATUS: FULL CODE Visit type - Emergency Visit Emergency Visit: Yes ED Registration Date: 06/12/18 Care time: The patient presented to the Emergency Department on the above date and was hospitalized for further evaluation of their emergent condition. - New Patient This patient is new to me today: No - Critical Care Critical Care patient: No
--- NOTE | 2018-06-30 10:19 | PN ---
Progress Note, Physician History of Present Illness: Remains intubated and arousable s/p Lopez's procedure and fecal peritonitis. Weaned off pressors. Episodes of rapid afib. - Current Medication List Current Medications: Active Medications Albuterol/Ipratropium (Duoneb -) 1 amp NEB Q6H PRN PRN Reason: SHORTNESS OF BREATH Amiodarone HCl (Cordarone -) 200 mg PO DAILY [facility] Last Admin: 06/29/18 13:40 Dose: 200 mg Chlorhexidine Gluconate (Hibiclens For Decolonization -) 1 applic TP HS [facility] Last Admin: 06/29/18 22:01 Dose: 1 applic Chlorhexidine Gluconate (Peridex -) 15 ml MM BID [facility] Last Admin: 06/29/18 22:02 Dose: 15 ml Fentanyl (Sublimaze Injection -) 50 mcg IVPUSH Q2H PRN PRN Reason: PAIN Stop: 06/30/18 12:29 Heparin Sodium (Porcine) (Heparin -) 5,000 unit SQ BID [facility] Last Admin: 06/29/18 22:01 Dose: 5,000 unit Hydrocortisone Sodium Succinate (Solu-Cortef -) 25 mg IVPB BID@0000,1200 [facility] Last Admin: 06/30/18 00:37 Dose: 25 mg Metronidazole (Flagyl 500mg Premixed Ivpb -) 500 mg in 100 mls @ 100 mls/hr IVPB Q6H-IV [facility] Last Admin: 06/30/18 08:12 Dose: 100 mls/hr Propofol (Diprivan -) 1,000,000 mcg in 100 mls @ 1.894 mls/hr IVPB TITR [facility]; Protocol Last Titration: 06/30/18 09:00 Dose: 6 mcg/kg/min, 2.273 mls/hr Piperacillin Sod/Tazobactam (Sod 3.375 gm/ Dextrose) 50 mls @ 100 mls/hr IVPB Q8H-IV [facility]; Protocol Last Admin: 06/30/18 01:41 Dose: 100 mls/hr Norepinephrine Bitartrate 16, (000 mcg/ Sodium Chloride) 1,000 mls @ 18.75 mls/ hr IV TITR [facility]; Protocol Last Admin: 06/30/18 06:43 Dose: Not Given Caspofungin 50 mg/ Sodium (Chloride) 250 mls @ 250 mls/hr IVPB DAILY [facility] Last Admin: 06/30/18 09:26 Dose: 250 mls/hr Insulin Aspart (Novolog Vial Sliding Scale -) 1 vial SQ ACHS [facility]; Protocol Last Admin: 06/30/18 06:17 Dose: 8 units Levothyroxine Sodium (Synthroid Injection -) 44 mcg IVPUSH 0700 [facility] Last Admin: 06/30/18 06:28 Dose: 44 mcg Ondansetron HCl (Zofran Injection) 4 mg IVPUSH Q6H PRN PRN Reason: NAUSEA Pantoprazole Sodium (Protonix Iv) 40 mg IVPUSH DAILY [facility] Last Admin: 06/29/18 09:17 Dose: 40 mg Potassium Phos/Sodium Phos (Phos-Nak Packet -) 1 packet PO BID [facility] Stop: 06/30/18 22:01 - Objective Vital Signs: Vital Signs Temperature 98.1 F 06/30/18 08:00 Pulse Rate 113 H 06/30/18 08:24 Respiratory Rate 17 06/30/18 08:24 Blood Pressure 129/52 06/30/18 08:00 O2 Sat by Pulse Oximetry (%) 100 06/30/18 08:24 Constitutional: Yes: No Distress, Calm Neck: Yes: Supple Cardiovascular: Yes: Tachycardia, Pulse Irregular Respiratory: Yes: Intubated, Mechanically Ventilated, Rhonchi Gastrointestinal: Yes: Soft, Hypoactive Bowel Sounds Edema: Yes Edema: LLE: 2+, RLE: 2+ Labs: CBC, BMP 06/30/18 05:30 06/30/18 05:30 INR, PTT INR 1.27 (0.82-1.09) H 06/12/18 07:47 - ....Imaging Chest X-ray: Report Reviewed (Increased pulmonary edema) Problem List - Problems (1) Acute on chronic diastolic heart failure Code(s): I50.33 - ACUTE ON CHRONIC DIASTOLIC (CONGESTIVE) HEART FAILURE (2) Atrial fibrillation Code(s): I48.91 - UNSPECIFIED ATRIAL FIBRILLATION Qualifiers: Atrial fibrillation type: persistent Qualified Code(s): I48.1 - Persistent atrial fibrillation (3) Pleural effusion Code(s): J90 - PLEURAL EFFUSION, NOT ELSEWHERE CLASSIFIED (4) Hypothyroidism Code(s): E03.9 - HYPOTHYROIDISM, UNSPECIFIED Qualifiers: Hypothyroidism type: unspecified Qualified Code(s): E03.9 - Hypothyroidism , unspecified (5) Perforation of colon as colonoscopy complication Code(s): K63.1 - PERFORATION OF INTESTINE (NONTRAUMATIC); K91.71 - ACCIDENTAL PNCTR & LAC OF A DGSTV SYS ORG DUR DGSTV SYS PROC (6) Status post Sam procedure Code(s): Z93.3 - COLOSTOMY STATUS (7) Acute on chronic respiratory failure with hypoxia and hypercapnia Code(s): J96.21 - ACUTE AND CHRONIC RESPIRATORY FAILURE WITH HYPOXIA; J96.22 - ACUTE AND CHRONIC RESPIRATORY FAILURE WITH HYPERCAPNIA Assessment/Plan cta of chest: no CT evidence of pulmonary embolism, pulmonary vascular congestion with cardiomegaly, bilateral pleural effusion Head CT (June 14 2018): no acute pathology echo LV WNL pleural effusion severe TR RVSP elevated PVR 1. Colonic perforation, fecal peritonitis, sepsis POD#8 post Lopez procedure 2. Septic shock 3. Acute hypoxic and hypercapneic respiratory failure referable to 4. Acute on chronic class II-III NYHA classification LV failure related to diastolic LV dysfunction 5. CAD angina pectoris 6. Severe TR with pulmonary HTN 7. Pleural effusions post right thoracentesis (transudate) 8. Persistent atrial fibrillation with periods of rapid ventricular response [id number] score of 5, not on A/C as patient has declined in past 9. Hypothyroidism 10. Carotid stenosis 11. Anemia 12. E. Coli UTI 13. Hyponatremia improved 14. Improved left Atelectasis PLAN: 1. Antibiotics and antifungals per the primary team/ID 2. Vent management as per ICU team, chest PT, bed percussion, mucomyst nebs, inhaled bronchodilators, taper off stress dose steroids 3. Weaned off Levophed 4. Change amio 200 qd to Lopressor 25 bid with uptitration as tolerated 5. IV Lasix as needed with caution in view of the above noted hyponatremia 6. As outlined in prior notes considering the above noted [id number] score of 5 A/C recommended unless it is absolutely contraindicated 7. Enteral feeds, DVT/GI prophylaxis, spontaneous breathing trials as tolerated , monitor ostomy output
[2018-06-30] MEDS: PANTOPRAZOLE SODIUM 40 MG VIAL IVPUSH SCH (10:23)
[2018-06-30] MEDS: AMIODARONE HCL 200 MG TABLET (FP) PO SCH (10:23)
[2018-06-30] MEDS: HEPARIN NA (PORCINE) 5,000 UNITS/ML 1ML VIAL SQ SCH (10:25)
[2018-06-30] MEDS: NAPH,MB-DB/K PH,MBDB POWDER PACKET PO SCH ×2 (10:30→21:23)
[2018-06-30] MEDS: CHLORHEXIDINE GLUCONATE 0.12% 15ML CUP MM SCH ×2 (10:30→21:23)
[2018-06-30] MEDS ORDERED: FUROSEMIDE 40 MG/4 ML INJECTABLE VIAL IVPUSH ONE ×2 (11:00→11:04)
--- NOTE | 2018-06-30 11:22 | PN ---
Teaching Attending Note Name of Resident: Alfredo Rodriguez ATTENDING PHYSICIAN STATEMENT I saw and evaluated the patient. I reviewed the resident's note and discussed the case with the resident. I agree with the resident's findings and plan as documented. SUBJECTIVE: Pt seen and examined in the ICU. Remains intubated, sedated. Off pressors. No fevers recorded. OBJECTIVE: Vital Signs Period Temp Pulse Resp BP Sys/De La O Pulse Ox Last 24 Hr 98.1 F-99.5 F 99-129 10-20 96-166/43-78 99-100 Intake & Output 06/27/18 06/28/18 06/29/18 06/30/18 23:59 23:59 23:59 23:59 Intake Total 1889.8 4010.0 3211.6 989 Output Total 1150 1200 1125 600 Balance 739.8 2810.0 2086.6 389 Weight 75.6 kg 76.566 kg 74.049 kg 76.204 kg Gen: intubated, sedated Heart: tachycardic, regular Lung: scattered rhonchi Abd: soft, +ostomy pink with stool output Ext: + edema CBC, BMP 06/30/18 05:30 06/30/18 05:30 Active Medications Albumin Human (Albumin Human 25%) 25 gm IVPB Q6H [facility] Stop: 07/01/18 05:16 Albuterol/Ipratropium (Duoneb -) 1 amp NEB Q6H PRN PRN Reason: SHORTNESS OF BREATH Chlorhexidine Gluconate (Hibiclens For Decolonization -) 1 applic TP HS [facility] Last Admin: 06/29/18 22:01 Dose: 1 applic Chlorhexidine Gluconate (Peridex -) 15 ml MM BID [facility] Last Admin: 06/30/18 10:30 Dose: 15 ml Fentanyl (Sublimaze Injection -) 50 mcg IVPUSH Q2H PRN PRN Reason: PAIN Stop: 06/30/18 12:29 Heparin Sodium (Porcine) (Heparin -) 5,000 unit SQ BID [facility] Last Admin: 06/30/18 10:25 Dose: 5,000 unit Metronidazole (Flagyl 500mg Premixed Ivpb -) 500 mg in 100 mls @ 100 mls/hr IVPB Q6H-IV [facility] Last Admin: 06/30/18 08:12 Dose: 100 mls/hr Propofol (Diprivan -) 1,000,000 mcg in 100 mls @ 1.894 mls/hr IVPB TITR [facility]; Protocol Last Titration: 06/30/18 09:35 Dose: 0 mcg/kg/min, 0 mls/hr Piperacillin Sod/Tazobactam (Sod 3.375 gm/ Dextrose) 50 mls @ 100 mls/hr IVPB Q8H-IV [facility]; Protocol Last Admin: 06/30/18 10:22 Dose: 100 mls/hr Norepinephrine Bitartrate 16, (000 mcg/ Sodium Chloride) 1,000 mls @ 18.75 mls/ hr IV TITR [facility]; Protocol Last Admin: 06/30/18 06:43 Dose: Not Given Caspofungin 50 mg/ Sodium (Chloride) 250 mls @ 250 mls/hr IVPB DAILY [facility] Last Admin: 06/30/18 09:26 Dose: 250 mls/hr Insulin Aspart (Novolog Vial Sliding Scale -) 1 vial SQ ACHS [facility]; Protocol Last Admin: 06/30/18 06:17 Dose: 8 units Levothyroxine Sodium (Synthroid Injection -) 44 mcg IVPUSH 0700 [facility] Last Admin: 06/30/18 06:28 Dose: 44 mcg Metoprolol Tartrate (Lopressor -) 25 mg NGT BID [facility] Ondansetron HCl (Zofran Injection) 4 mg IVPUSH Q6H PRN PRN Reason: NAUSEA Pantoprazole Sodium (Protonix Iv) 40 mg IVPUSH DAILY [facility] Last Admin: 06/30/18 10:23 Dose: 40 mg Potassium Phos/Sodium Phos (Phos-Nak Packet -) 1 packet PO BID [facility] Stop: 06/30/18 22:01 Last Admin: 06/30/18 10:30 Dose: 1 packet ASSESSMENT AND PLAN: Sigmoid Colon Rupture Fecal Peritonitis Septic Shock Acute Hypoxic and Hypercapneic Respiratory Failure Acute on Chronic Diastolic Heart Failure Pulmonary HTN CAD Atrial Fibrillation with RVR Hyponatremia Hypothyroidism UTI Atelectasis - continue antibiotics - albumin/lasix today - monitoring off pressors, maintain MAP >65 - off stress dose steroids - replete lytes - inhaled bronchodilators - rate control - resume anticoagulation - taper FiO2 to keep Spo2 >90% - monitor ostomy output - spontaneous breathing trials as tolerated - enteral feeds - DVT/GI prophylaxis - continue ICU monitoring critical care time spent in reviewing chart, evaluating patient and formulating plan 35 min
--- NOTE | 2018-06-30 11:25 | PN ---
Progress Note, Physician History of Present Illness: Intubated Off sedation and pressors Weaning attempts in progress Afebrile WBC remains elevated Operative cultures Enterococcus, E. coli, yeast - Current Medication List Current Medications: Active Medications Albumin Human (Albumin Human 25%) 25 gm IVPB Q6H [facility] Stop: 07/01/18 05:16 Albuterol/Ipratropium (Duoneb -) 1 amp NEB Q6H PRN PRN Reason: SHORTNESS OF BREATH Chlorhexidine Gluconate (Hibiclens For Decolonization -) 1 applic TP HS REED Last Admin: 06/29/18 22:01 Dose: 1 applic Chlorhexidine Gluconate (Peridex -) 15 ml MM BID [facility] Last Admin: 06/30/18 10:30 Dose: 15 ml Fentanyl (Sublimaze Injection -) 50 mcg IVPUSH Q2H PRN PRN Reason: PAIN Stop: 06/30/18 12:29 Heparin Sodium (Porcine) (Heparin -) 5,000 unit SQ BID REED Last Admin: 06/30/18 10:25 Dose: 5,000 unit Metronidazole (Flagyl 500mg Premixed Ivpb -) 500 mg in 100 mls @ 100 mls/hr IVPB Q6H-IV [facility] Last Admin: 06/30/18 08:12 Dose: 100 mls/hr Propofol (Diprivan -) 1,000,000 mcg in 100 mls @ 1.894 mls/hr IVPB TITR [facility]; Protocol Last Titration: 06/30/18 09:35 Dose: 0 mcg/kg/min, 0 mls/hr Piperacillin Sod/Tazobactam (Sod 3.375 gm/ Dextrose) 50 mls @ 100 mls/hr IVPB Q8H-IV [facility]; Protocol Last Admin: 06/30/18 10:22 Dose: 100 mls/hr Norepinephrine Bitartrate 16, (000 mcg/ Sodium Chloride) 1,000 mls @ 18.75 mls/ hr IV TITR [facility]; Protocol Last Admin: 06/30/18 06:43 Dose: Not Given Caspofungin 50 mg/ Sodium (Chloride) 250 mls @ 250 mls/hr IVPB DAILY [facility] Last Admin: 06/30/18 09:26 Dose: 250 mls/hr Insulin Aspart (Novolog Vial Sliding Scale -) 1 vial SQ ACHS [facility]; Protocol Last Admin: 06/30/18 06:17 Dose: 8 units Levothyroxine Sodium (Synthroid Injection -) 44 mcg IVPUSH 0700 [facility] Last Admin: 06/30/18 06:28 Dose: 44 mcg Metoprolol Tartrate (Lopressor -) 25 mg NGT BID [facility] Ondansetron HCl (Zofran Injection) 4 mg IVPUSH Q6H PRN PRN Reason: NAUSEA Pantoprazole Sodium (Protonix Iv) 40 mg IVPUSH DAILY [facility] Last Admin: 06/30/18 10:23 Dose: 40 mg Potassium Phos/Sodium Phos (Phos-Nak Packet -) 1 packet PO BID [facility] Stop: 06/30/18 22:01 Last Admin: 06/30/18 10:30 Dose: 1 packet - Objective Vital Signs: Vital Signs Temperature 98.1 F 06/30/18 08:00 Pulse Rate 113 H 06/30/18 08:24 Respiratory Rate 17 06/30/18 08:24 Blood Pressure 129/52 06/30/18 08:00 O2 Sat by Pulse Oximetry (%) 100 06/30/18 08:24 Constitutional: Yes: No Distress Cardiovascular: Yes: Regular Rate and Rhythm, S1, S2 Respiratory: Yes: Mechanically Ventilated Gastrointestinal: Yes: Normal Bowel Sounds, Soft, Other (+ surgical wound with packing + ostomy). No: Tenderness Labs: CBC, BMP 06/30/18 05:30 06/30/18 05:30 INR, PTT INR 1.27 (0.82-1.09) H 06/12/18 07:47 Assessment/Plan POD #8 Lopez procedure Colonic perforation, fecal peritonitis Sepsis/ septic shock secondary to GI source Operative c/s Enterococcus, E coli, Yeast Pulmonary vascular congestion ? pneumonia Continue empiric zosyn/ flagyl / cancidas Weaning as tolerated ICU monitoring Prognosis guarded
[2018-06-30] MEDS ORDERED: dilTIAZem HCL 50 MG/10 ML - 10 ML VIAL IVPUSH ONE (11:35)
[2018-06-30] MEDS: ENOXAPARIN NA (PORCINE) 80 MG/0.8 ML DISP.SYRIN SQ SCH ×2 (11:52→21:22)
[2018-06-30] MEDS: ALBUMIN HUMAN 25% 12.5 GM/50 ML VIAL IVPB SCH ×3 (11:53→22:49)
[2018-06-30] MEDS: METOPROLOL TARTRATE 25 MG TABLET (FP) NGT SCH ×2 (12:39→21:21)
--- NOTE | 2018-06-30 16:13 | PN ---
Physical Exam: SUBJECTIVE: Patient seen and examined this am and afternoon. Resting in bed, sedated and intubated. Levophed D/C'ed early this am. Soha Ed and Asif at bedside. OBJECTIVE: Vital Signs Period Temp Pulse Resp BP Sys/De La O Pulse Ox Last 24 Hr 97.9 F-99.5 F 99-132 10-33 118-166/46-78 99-100 GENERAL: Intubated, NG Tube. HEAD: NC/AT NECK: Trachea midline. No JVD. LUNGS: B/L rhonchi. HEART: Irregular. ABDOMEN: Soft. Colostomy present. EXTREMITIES: onycholysis, upper extremities swollen, bandages on feet b/l to prevent pressure ulcers. NEUROLOGICAL: N/A SKIN: dry, pallor. Bandages on feet b/l to prevent pressure ulcers. Laboratory Results - last 24 hr 06/28/18 06/29/18 06/29/18 06:07 17:05 21:34 WBC RBC Hgb Hct MCV MCH MCHC RDW Plt Count MPV Sodium Potassium Chloride Carbon Dioxide Anion Gap BUN Creatinine Creat Clearance w eGFR POC Glucometer [phone] [phone] Random Glucose Calcium Phosphorus Magnesium Total Bilirubin AST ALT Alkaline Phosphatase Total Protein Albumin 06/30/18 06/30/18 06/30/18 05:30 05:30 06:03 WBC 12.1 H RBC 3.72 Hgb 9.0 L Hct 27.7 L MCV 74.5 L MCH 24.1 L MCHC 32.3 RDW 31.2 H Plt Count 345 MPV 8.0 Sodium 139 Potassium 3.8 Chloride 105 Carbon Dioxide 26 Anion Gap 8 BUN 16 Creatinine 0.4 L Creat Clearance w eGFR > 60 POC Glucometer [phone] Random Glucose 272 H Calcium 7.8 L Phosphorus 1.4 L Magnesium 2.0 Total Bilirubin 1.0 AST 8 L ALT 7 L Alkaline Phosphatase 94 Total Protein 4.5 L Albumin 2.1 L 06/30/18 11:49 WBC RBC Hgb Hct MCV MCH MCHC RDW Plt Count MPV Sodium Potassium Chloride Carbon Dioxide Anion Gap BUN Creatinine Creat Clearance w eGFR POC Glucometer [phone] Random Glucose Calcium Phosphorus Magnesium Total Bilirubin AST ALT Alkaline Phosphatase Total Protein Albumin Active Medications Generic Name Dose Route Start Last Admin Trade Name Freq PRN Reason Stop Dose Admin Albumin Human 25 gm 06/30/18 11:15 06/30/18 11:53 Albumin Human 25% IVPB 07/01/18 05:16 25 gm Q6H REED Administration Albuterol/Ipratropium 1 amp 06/22/18 17:53 Duoneb - NEB Q6H PRN SHORTNESS OF BREATH Chlorhexidine Gluconate 1 applic 06/22/18 22:00 06/29/18 22:01 Hibiclens For Decolonization - TP 1 applic HS REED Administration Chlorhexidine Gluconate 15 ml 06/23/18 10:00 06/30/18 10:30 Peridex - MM 15 ml BID REED Administration Enoxaparin Sodium 70 mg 06/30/18 11:30 06/30/18 11:52 Lovenox - SQ 70 mg BID REED Administration Metronidazole 500 mg in 100 mls @ 100 mls/hr 06/22/18 21:00 06/30/18 14:30 Flagyl 500mg Premixed Ivpb - IVPB 100 mls/hr Q6H-IV [facility] Administration Propofol 1,000,000 mcg in 100 mls @ 1.894 mls/hr 06/22/18 18:15 06/30/18 09: 35 Diprivan - IVPB 0 mcg/kg/min TITR RE[facility] 0 mls/hr Titration Protocol 5 MCG/KG/MIN Piperacillin Sod/Tazobactam 50 mls @ 100 mls/hr 06/23/18 02:00 06/30/18 10:22 Sod 3.375 gm/ Dextrose IVPB 100 mls/hr Q8H-IV [facility] Administration Protocol Norepinephrine Bitartrate 16, 1,000 mls @ 18.75 mls/hr 06/25/18 06:40 06:43 000 mcg/ Sodium Chloride IV Not Given TITR RE[facility] Protocol 5 MCG/MIN Caspofungin 50 mg/ Sodium 250 mls @ 250 mls/hr 06/26/18 10:00 06/30/18 09:26 Chloride IVPB 250 mls/hr DAILY [facility] Administration Insulin Aspart 1 vial 06/22/18 22:00 06/30/18 11:56 Novolog Vial Sliding Scale - SQ 4 units ACHS REED Administration Protocol Levothyroxine Sodium 44 mcg 06/23/18 07:00 06/30/18 06:28 Synthroid Injection - IVPUSH 44 mcg 0700 [facility] Administration Metoprolol Tartrate 25 mg 06/30/18 10:45 06/30/18 12:39 Lopressor - NGT 25 mg BID REED Administration Ondansetron HCl 4 mg 06/22/18 17:53 Zofran Injection IVPUSH Q6H PRN NAUSEA Pantoprazole Sodium 40 mg 06/23/18 10:00 06/30/18 10:23 Protonix Iv IVPUSH 40 mg DAILY [facility] Administration Potassium Phos/Sodium Phos 1 packet 06/30/18 10:00 06/30/18 10:30 Phos-Nak Packet - PO 06/30/18 22:01 1 packet BID REED Administration ASSESSMENT/PLAN: Ms. Singh is an 87 y/o lady with a past medical history of A. fib (no AC), CVA , breast cancer, hypothyroidism, iron deficiency anemia, and DM. Pt has a h/o occult GI bleeding requiring blood transfusions. Pt has had a recent development of severe microcytic anemia and heme + stool. Has been on aspirin chronically for A fib. Has not had any specific GI complaints and has refused GI workups in past. Pt was referred to [facility] for a colonoscopy to r/o any GI bleed. Pt developed a perforation of her rectosigmoid colon s/p colonoscopy. Dr Lora, General Surgeon, was notified and pt was transfered [facility] to [facility]. An exploratory laparotomy was performed where surgical resection of the rectosigmoid colon with closure of the anorectal stump and formation of an end colostomy Neuro: -Intubated and Sedated. Propofol @ 1.894 mls/hr -Levophed D/C'ed [facility]- POD #8 Lopez's Procedure-->Sigmoid colonic perforation s/p colonoscopy / , septic shock, fecal peritonitis -Colonic perforation, fecal peritonitis -S/P Lopez procedure POD #8 -Continue empiric zosyn/ flagyl -Caspofungin -ICU monitoring -Protonix 40 mg po daily -Enteral Feeds PULM-Acute hypercapneic and hypoxic respiratory failure -Intubated -Duoneb 1 AMP NEB Q6H -Chest physiotherapy Chest XRAY 06/29/18- Worsening pulmonary edema, pleural effusions. -Albumin 25 gm x4 doses -Lasix 40 mg AFIB: Amiodorone 200 mg D/C'ed Lopressor 25 MG NGT BID per cardiology FEN No Fluids Monitor Electrolytes Enterel Feeds Osmolite DVT ppx: Lovenox 70 mg sq bid Dispo- continue to monitor in icu. Visit type - Emergency Visit Emergency Visit: Yes ED Registration Date: 06/12/18 Care time: The patient presented to the Emergency Department on the above date and was hospitalized for further evaluation of their emergent condition. - New Patient This patient is new to me today: No - Critical Care Critical Care patient: Yes Total Critical Care Time (in minutes): 35 Critical Care Statement: The care of this patient involved high complexity decision making to prevent further life threatening deterioration of the patient 's condition and/or to evaluate & treat vital organ system(s) failure or risk of failure.
[2018-06-30] MEDS: CHLORHEXIDINE GLUCONATE 4% CLEANSER FOR DECOLONIZATION TP SCH (21:20)
[2018-07-01] MEDS ORDERED: ACETAMINOPHEN 650 MG SUPP.RECT PR ONE (02:00)
[2018-07-01] MEDS ORDERED: PIPERACILLIN/TAZOBACTAM 3.375 GM VIAL IVPB ONE ×4 (02:14→21:57)
[2018-07-01] MEDS ORDERED: DEXTROSE 5%-WATER - 50 ML IVPB ONE ×4 (02:14→21:57)
[2018-07-01] MEDS: PIPERACILLIN/TAZOB 3.375 GM 3.375 GM in DEXTROSE 5%-WATER - 50 ML IVPB SCH ×3 (02:21→17:20)
[2018-07-01] MEDS: ALBUMIN HUMAN 25% 12.5 GM/50 ML VIAL IVPB SCH (05:30)
[2018-07-01 06:02] LABS: BASO % 0.1 % (0-2.0); EOS % 0.4 % (0-4.5); HEMOGLOBIN 8.3 GM/dL (10.7-15.3); LYMPH % 2.2 % (8-40); MCH 24.6 pg (25.7-33.7); MCHC 33.2 g/dl (32.0-36.0); MEAN CELL VOLUME 74.2 fl (80-96); MEAN PLT VOLUME 8.5 fl (7.5-11.1); MONO % 7.3 % (3.8-10.2); PLATELET COUNT 304 K/MM3 (134-434); RBC 3.37 M/mm3 (3.60-5.2); RDW 31.5 % (11.6-15.6); WHITE BLOOD COUNT 10.1 K/mm3 (4.0-10.0)
[2018-07-01] MEDS: INSULIN SLIDING SCALE (NOVOLOG) 1 VIAL SQ SCH ×4 (06:17→22:45)
[2018-07-01] MEDS: LEVOTHYROXINE SODIUM 100 MCG VIAL IVPUSH SCH (06:26)
[2018-07-01 06:39] LABS: ALBUMIN 2.8 g/dl (3.4-5.0); ANION GAP 7 (8-16); BLOOD UREA NITROGEN 16 mg/dL (7-18); CALCIUM 7.5 mg/dL (8.5-10.1); CHLORIDE 103 mmol/L (98-107); CO2 29 mmol/L (21-32); GLUCOSE,RANDOM 222 mg/dL (74-106); MAGNESIUM 1.7 mg/dL (1.8-2.4); POTASSIUM 3.5 mmol/L (3.5-5.1); SODIUM 139 mmol/L (136-145)
[2018-07-01 06:42] LABS: ALK PHOS 77 U/L (45-117); BILIRUBIN,TOTAL 1.2 mg/dL (0.2-1.0); CREATININE 0.4 mg/dL (0.55-1.02); PHOSPHOROUS 1.6 mg/dL (2.5-4.9); SGOT/AST 9 U/L (15-37); SGPT/ALT 8 U/L (12-78); TOT PROT 4.7 g/dl (6.4-8.2)
--- NOTE | 2018-07-01 08:22 | PN ---
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 since yesterday am BP remains stable didnot tolerate CPAP trial became tachycardic placed back on vent last night sedated again fever overnight tube feeds Vital Signs Period Temp Pulse Resp BP Sys/De La O Pulse Ox Last 24 Hr 97.9 F-101.0 F 86-132 13-33 121-155/52-76 98-100 intubated cor-rrr llungs decreased bs at bases abd soft, midline incision packed with iodoform, gauze is wet +drain colostomy with good output ext no edema RIGHT IJ CVP kapoor CBC, BMP 07/01/18 05:30 07/01/18 05:30 Microbiology 06/23/18 09:28 Blood - Peripheral Venous Blood Culture - Final NO GROWTH AFTER 5 DAYS INCUBATION 06/23/18 09:35 Blood - Peripheral Venous Blood Culture - Final NO GROWTH AFTER 5 DAYS INCUBATION 06/22/18 Unknown Peritoneal Fluid Gram Stain - Final 06/22/18 Unknown Peritoneal Fluid Body Fluid Culture - Final Enterococcus Raffinosus Escherichia Coli Yeast Like Organism 06/22/18 Unknown Peritoneal Fluid Anaerobic Culture - Final NO ANAEROBES WERE ISOLATED 06/16/18 15:00 Pleural Fluid AFB Smear Concentration - Final 06/16/18 15:00 Pleural Fluid Mycobacterial Culture - Preliminary 06/16/18 15:00 Pleural Fluid Gram Stain - Final 06/16/18 15:00 Pleural Fluid Body Fluid Culture - Final NO GROWTH OF AEROBIC ORGANISMS AFTER 48 HOURS INCUBATION 06/16/18 15:00 Pleural Fluid Anaerobic Culture - Final NO ANAEROBES WERE ISOLATED 06/14/18 08:30 Blood - Peripheral Venous Blood Culture - Final NO GROWTH AFTER 5 DAYS INCUBATION 06/14/18 08:30 Blood - Peripheral Venous Blood Culture - Final NO GROWTH AFTER 5 DAYS INCUBATION 06/16/18 10:00 Sputum - Expectorated Gram Stain - Final 06/16/18 10:00 Sputum - Expectorated Sputum Culture - Final NORMAL RESPIRATORY EFRAIN 06/16/18 15:00 Pleural Fluid JACOB Preparation - Preliminary 06/16/18 15:00 Pleural Fluid Fungal Culture - Preliminary 06/14/18 10:30 Urine - Urine Kapoor Urine Culture - Final Escherichia Coli 06/14/18 17:14 Urine For Antigen Detection Legionella Antigen - Final 06/14/18 17:14 Urine For Antigen Detection Streptococcus pneumoniae Antigen (M - Final Current Medications Albuterol/Ipratropium (Duoneb -) 1 amp NEB Q6H PRN PRN Reason: SHORTNESS OF BREATH Chlorhexidine Gluconate (Hibiclens For Decolonization -) 1 applic TP HS [facility] Last Admin: 06/30/18 21:20 Dose: 1 applic Chlorhexidine Gluconate (Peridex -) 15 ml MM BID [facility] Last Admin: 06/30/18 21:23 Dose: 15 ml Enoxaparin Sodium (Lovenox -) 70 mg SQ BID [facility] Last Admin: 06/30/18 21:22 Dose: 70 mg Metronidazole (Flagyl 500mg Premixed Ivpb -) 500 mg in 100 mls @ 100 mls/hr IVPB Q6H-IV [facility] Last Admin: 07/01/18 02:20 Dose: 100 mls/hr Propofol (Diprivan -) 1,000,000 mcg in 100 mls @ 1.894 mls/hr IVPB TITR [facility]; Protocol Last Admin: 06/30/18 22:48 Dose: 10 mcg/kg/min, 3.788 mls/hr Piperacillin Sod/Tazobactam (Sod 3.375 gm/ Dextrose) 50 mls @ 100 mls/hr IVPB Q8H-IV [facility]; Protocol Last Admin: 07/01/18 02:21 Dose: 100 mls/hr Caspofungin 50 mg/ Sodium (Chloride) 250 mls @ 250 mls/hr IVPB DAILY [facility] Last Admin: 06/30/18 09:26 Dose: 250 mls/hr Insulin Aspart (Novolog Vial Sliding Scale -) 1 vial SQ ACHS [facility]; Protocol Last Admin: 07/01/18 06:17 Dose: 6 units Levothyroxine Sodium (Synthroid Injection -) 44 mcg IVPUSH 0700 [facility] Last Admin: 07/01/18 06:26 Dose: 44 mcg Metoprolol Tartrate (Lopressor -) 25 mg NGT BID [facility] Last Admin: 06/30/18 21:21 Dose: 25 mg Ondansetron HCl (Zofran Injection) 4 mg IVPUSH Q6H PRN PRN Reason: NAUSEA Pantoprazole Sodium (Protonix Iv) 40 mg IVPUSH DAILY [facility] Last Admin: 06/30/18 10:23 Dose: 40 mg a/p POD #9 s/p Lopez s/p colonic perforation/fecal peritonitis sepsis respiratory failure continue zosyn/flagyl/cancidas reculture for futher temps cxray with congestion, cannot r/o underlying infiltrate overall prognosis is guarded over 35 minutes spent reviewing chart and labs/micro
--- NOTE | 2018-07-01 08:44 | PN ---
Progress Note (short form) - Note Progress Note: PULM/CCM Pt seen and examined in the ICU. Remains intubated, sedated. Off pressors. OBJECTIVE: Vital Signs Period Temp Pulse Resp BP Sys/De La O Pulse Ox Last 24 Hr 99.2 F-101.0 F 86-115 10-30 103-155/47-76 98-100 Intake & Output 06/28/18 06/29/18 06/30/18 07/01/18 23:59 23:59 23:59 23:59 Intake Total 4010.0 3211.6 1729 582 Output Total 1200 1125 2350 800 Balance 2810.0 2086.6 -621 -218 Weight 76.566 kg 74.049 kg 76.204 kg 75.75 kg GEN: Elderly woman intubated, sedated PULM: scattered rhonchi CV: nml S1 S2, RR ABD: soft, +ostomy pink with stool output EXT: + Pulses, WWP, + edema CBC, BMP 07/01/18 05:30 07/01/18 05:30 Active Medications Albuterol/Ipratropium (Duoneb -) 1 amp NEB Q6H PRN PRN Reason: SHORTNESS OF BREATH Amino Acids (Prosource No Carb Liquid Pkt) 30 ml PO BID@0800,1730 [facility] Chlorhexidine Gluconate (Hibiclens For Decolonization -) 1 applic TP HS [facility] Last Admin: 06/30/18 21:20 Dose: 1 applic Chlorhexidine Gluconate (Peridex -) 15 ml MM BID [facility] Last Admin: 07/01/18 11:09 Dose: 15 ml Enoxaparin Sodium (Lovenox -) 70 mg SQ BID [facility] Last Admin: 07/01/18 11:07 Dose: 70 mg Metronidazole (Flagyl 500mg Premixed Ivpb -) 500 mg in 100 mls @ 100 mls/hr IVPB Q6H-IV [facility] Last Admin: 07/01/18 15:28 Dose: 100 mls/hr Propofol (Diprivan -) 1,000,000 mcg in 100 mls @ 1.894 mls/hr IVPB TITR [facility]; Protocol Last Titration: 07/01/18 07:00 Dose: 10 mcg/kg/min, 3.788 mls/hr Piperacillin Sod/Tazobactam (Sod 3.375 gm/ Dextrose) 50 mls @ 100 mls/hr IVPB Q8H-IV [facility]; Protocol Last Admin: 07/01/18 11:10 Dose: 100 mls/hr Caspofungin 50 mg/ Sodium (Chloride) 250 mls @ 250 mls/hr IVPB DAILY [facility] Last Admin: 07/01/18 10:24 Dose: 250 mls/hr Insulin Aspart (Novolog Vial Sliding Scale -) 1 vial SQ ACHS [facility]; Protocol Last Admin: 07/01/18 12:52 Dose: 8 units Levothyroxine Sodium (Synthroid Injection -) 44 mcg IVPUSH 0700 [facility] Last Admin: 07/01/18 06:26 Dose: 44 mcg Metoprolol Tartrate (Lopressor -) 25 mg NGT BID [facility] Last Admin: 07/01/18 11:07 Dose: 25 mg Ondansetron HCl (Zofran Injection) 4 mg IVPUSH Q6H PRN PRN Reason: NAUSEA Pantoprazole Sodium (Protonix Iv) 40 mg IVPUSH DAILY [facility] Last Admin: 07/01/18 11:09 Dose: 40 mg ASSESSMENT AND PLAN: Sigmoid Colon Rupture Fecal Peritonitis Septic Shock Acute Hypoxic and Hypercapneic Respiratory Failure Acute on Chronic Diastolic Heart Failure Pulmonary HTN CAD Atrial Fibrillation with RVR Hyponatremia Hypothyroidism UTI Atelectasis - Cont Vent Support - Wean FiO2 as tolerated - Nebs - Daily SBTs - Continue Abx - Gentle diuresis - replete e-lytes prn - rate control - AC - monitor ostomy output - enteral feeds - DVT/GI prophylaxis - continue ICU monitoring DGL, ACNP-[facility] ICU PULM/[facility] 4462 Critical Care Total Critical Care Time (in minutes): 38 Critical Care Statement: The care of this patient involved high complexity decision making to prevent further life threatening deterioration of the patient 's condition and/or to evaluate & treat vital organ system(s) failure or risk of failure.
--- NOTE | 2018-07-01 09:06 | EKG ---
Test Reason : Blood Pressure : / mmHG Vent. Rate : 127 BPM Atrial Rate : 119 BPM P-R Int : 000 ms QRS Dur : 086 ms QT Int : 300 ms P-R-T Axes : 000 035 209 degrees QTc Int : 436 ms ATRIAL FIBRILLATION WITH RAPID VENTRICULAR RESPONSE LOW VOLTAGE QRS NONSPECIFIC ST AND T WAVE ABNORMALITY ABNORMAL ECG WHEN COMPARED WITH ECG OF 14-JUN-2018 07:40, NONSPECIFIC T WAVE ABNORMALITY, WORSE IN INFERIOR LEADS NONSPECIFIC T WAVE ABNORMALITY, WORSE IN ANTEROLATERAL LEADS Confirmed by MAYELIN SCHILLING MD ([id number]) on 07/01/2018 9:05:39 AM Referred By: FATMATA ROSE Confirmed By:MAYELIN SCHILLING MD
[2018-07-01] MEDS: CASPOFUNGIN ACETATE 50 MG in SODIUM CHLORIDE 250 ML IVPB SCH (10:24)
[2018-07-01] MEDS: ENOXAPARIN NA (PORCINE) 80 MG/0.8 ML DISP.SYRIN SQ SCH ×2 (11:07→22:13)
[2018-07-01] MEDS: METOPROLOL TARTRATE 25 MG TABLET (FP) NGT SCH ×2 (11:07→22:00)
[2018-07-01] MEDS: PANTOPRAZOLE SODIUM 40 MG VIAL IVPUSH SCH (11:09)
[2018-07-01] MEDS: CHLORHEXIDINE GLUCONATE 0.12% 15ML CUP MM SCH ×2 (11:09→22:05)
--- NOTE | 2018-07-01 12:26 | PN ---
Progress Note, Physician Chief Complaint: Events noted Remains intubated on mechanical ventilation History of Present Illness: Patient was seen and examined in ICU. Chart was reviewed. Colonic perforation, fecal peritonitis, sepsis post Lopez procedure Off pressor. Intubated and sedated still Febrile - Current Medication List Current Medications: Active Medications Albuterol/Ipratropium (Duoneb -) 1 amp NEB Q6H PRN PRN Reason: SHORTNESS OF BREATH Amino Acids (Prosource No Carb Liquid Pkt) 30 ml PO BID@0800,1730 [facility] Chlorhexidine Gluconate (Hibiclens For Decolonization -) 1 applic TP HS [facility] Last Admin: 06/30/18 21:20 Dose: 1 applic Chlorhexidine Gluconate (Peridex -) 15 ml MM BID [facility] Last Admin: 07/01/18 11:09 Dose: 15 ml Enoxaparin Sodium (Lovenox -) 70 mg SQ BID [facility] Last Admin: 07/01/18 11:07 Dose: 70 mg Metronidazole (Flagyl 500mg Premixed Ivpb -) 500 mg in 100 mls @ 100 mls/hr IVPB Q6H-IV [facility] Last Admin: 07/01/18 02:20 Dose: 100 mls/hr Propofol (Diprivan -) 1,000,000 mcg in 100 mls @ 1.894 mls/hr IVPB TITR [facility]; Protocol Last Admin: 06/30/18 22:48 Dose: 10 mcg/kg/min, 3.788 mls/hr Piperacillin Sod/Tazobactam (Sod 3.375 gm/ Dextrose) 50 mls @ 100 mls/hr IVPB Q8H-IV [facility]; Protocol Last Admin: 07/01/18 11:10 Dose: 100 mls/hr Caspofungin 50 mg/ Sodium (Chloride) 250 mls @ 250 mls/hr IVPB DAILY [facility] Last Admin: 07/01/18 10:24 Dose: 250 mls/hr Insulin Aspart (Novolog Vial Sliding Scale -) 1 vial SQ ACHS [facility]; Protocol Last Admin: 07/01/18 06:17 Dose: 6 units Levothyroxine Sodium (Synthroid Injection -) 44 mcg IVPUSH 0700 [facility] Last Admin: 07/01/18 06:26 Dose: 44 mcg Metoprolol Tartrate (Lopressor -) 25 mg NGT BID [facility] Last Admin: 07/01/18 11:07 Dose: 25 mg Ondansetron HCl (Zofran Injection) 4 mg IVPUSH Q6H PRN PRN Reason: NAUSEA Pantoprazole Sodium (Protonix Iv) 40 mg IVPUSH DAILY [facility] Last Admin: 07/01/18 11:09 Dose: 40 mg - Objective Vital Signs: Vital Signs Temperature 100 F H 07/01/18 06:00 Pulse Rate 86 07/01/18 02:00 Respiratory Rate 19 07/01/18 12:16 Blood Pressure 136/71 07/01/18 02:00 O2 Sat by Pulse Oximetry (%) 100 06/30/18 21:00 Cardiovascular: Yes: Pulse Irregular, S1, S2 Respiratory: Yes: Mechanically Ventilated Gastrointestinal: Yes: Normal Bowel Sounds, Soft. No: Tenderness Edema: Yes Labs: CBC, BMP 07/01/18 05:30 07/01/18 05:30 Problem List - Problems (1) Septic shock Code(s): A41.9 - SEPSIS, UNSPECIFIED ORGANISM; R65.21 - SEVERE SEPSIS WITH SEPTIC SHOCK (2) Acute hypercapnic respiratory failure Code(s): J96.02 - ACUTE RESPIRATORY FAILURE WITH HYPERCAPNIA (3) Acute on chronic diastolic heart failure Code(s): I50.33 - ACUTE ON CHRONIC DIASTOLIC (CONGESTIVE) HEART FAILURE (4) Acute on chronic respiratory failure with hypoxia and hypercapnia Code(s): J96.21 - ACUTE AND CHRONIC RESPIRATORY FAILURE WITH HYPOXIA; J96.22 - ACUTE AND CHRONIC RESPIRATORY FAILURE WITH HYPERCAPNIA (5) Atrial fibrillation Code(s): I48.91 - UNSPECIFIED ATRIAL FIBRILLATION Qualifiers: Atrial fibrillation type: persistent Qualified Code(s): I48.1 - Persistent atrial fibrillation (6) Hypothyroidism Code(s): E03.9 - HYPOTHYROIDISM, UNSPECIFIED Qualifiers: Hypothyroidism type: unspecified Qualified Code(s): E03.9 - Hypothyroidism , unspecified (7) Perforation of colon as colonoscopy complication Code(s): K63.1 - PERFORATION OF INTESTINE (NONTRAUMATIC); K91.71 - ACCIDENTAL PNCTR & LAC OF A DGSTV SYS ORG DUR DGSTV SYS PROC (8) Pleural effusion Code(s): J90 - PLEURAL EFFUSION, NOT ELSEWHERE CLASSIFIED (9) Status post Sam procedure Code(s): Z93.3 - COLOSTOMY STATUS Assessment/Plan 1. Colonic perforation, fecal peritonitis, sepsis post Lopez procedure 2. Septic shock 3. Acute hypoxic and hypercapneic respiratory failure 4. Acute on chronic class II-III NYHA classification LV failure related to diastolic LV dysfunction 5. CAD angina pectoris 6. Severe TR with pulmonary HTN 7. Pleural effusions post right thoracentesis (transudate) 8. Persistent atrial fibrillation with periods of rapid ventricular response [id number] score of 5, not on A/C as patient has declined in past 9. Hypothyroidism 10. Carotid stenosis 11. Anemia 12. E. Coli UTI 13. Hyponatremia improved 14. Improved left Atelectasis PLAN: 1. Antibiotics and antifungals per the primary team/ID 2. Vent management as per ICU team 3. Metoprolol as tolerated 4. IV Lasix as needed with caution 5. As outlined in prior notes considering the above noted [id number] score of 5 A/C recommended unless it is absolutely contraindicated 6. Enteral feeds, DVT/GI prophylaxis, spontaneous breathing trials as tolerated Guarded Herbie Ruvalcaba MD
--- NOTE | 2018-07-01 16:35 | PN ---
Progress Note, Physician Chief Complaint: colonic perforation History of Present Illness: 87yo female MMP developed abdominal distention and pain during inpatient colonoscopy as part of a w/u for anemia. Found to have a colonic perforation at the level of the sigmoid. taken for operative intervention. Remains in ICU on sedated mechanically ventilated off vasopressor support for 24hour . No acute changes overnight. - Current Medication List Current Medications: Active Medications Albuterol/Ipratropium (Duoneb -) 1 amp NEB Q6H PRN PRN Reason: SHORTNESS OF BREATH Amino Acids (Prosource No Carb Liquid Pkt) 30 ml PO BID@0800,1730 [facility] Chlorhexidine Gluconate (Hibiclens For Decolonization -) 1 applic TP HS [facility] Last Admin: 06/30/18 21:20 Dose: 1 applic Chlorhexidine Gluconate (Peridex -) 15 ml MM BID [facility] Last Admin: 07/01/18 11:09 Dose: 15 ml Enoxaparin Sodium (Lovenox -) 70 mg SQ BID [facility] Last Admin: 07/01/18 11:07 Dose: 70 mg Metronidazole (Flagyl 500mg Premixed Ivpb -) 500 mg in 100 mls @ 100 mls/hr IVPB Q6H-IV [facility] Last Admin: 07/01/18 15:28 Dose: 100 mls/hr Propofol (Diprivan -) 1,000,000 mcg in 100 mls @ 1.894 mls/hr IVPB TITR [facility]; Protocol Last Titration: 07/01/18 16:08 Dose: 5 mcg/kg/min, 1.894 mls/hr Piperacillin Sod/Tazobactam (Sod 3.375 gm/ Dextrose) 50 mls @ 100 mls/hr IVPB Q8H-IV [facility]; Protocol Last Admin: 07/01/18 11:10 Dose: 100 mls/hr Caspofungin 50 mg/ Sodium (Chloride) 250 mls @ 250 mls/hr IVPB DAILY [facility] Last Admin: 07/01/18 10:24 Dose: 250 mls/hr Insulin Aspart (Novolog Vial Sliding Scale -) 1 vial SQ ACHS [facility]; Protocol Last Admin: 07/01/18 12:52 Dose: 8 units Levothyroxine Sodium (Synthroid Injection -) 44 mcg IVPUSH 0700 [facility] Last Admin: 07/01/18 06:26 Dose: 44 mcg Metoprolol Tartrate (Lopressor -) 25 mg NGT BID [facility] Last Admin: 07/01/18 11:07 Dose: 25 mg Ondansetron HCl (Zofran Injection) 4 mg IVPUSH Q6H PRN PRN Reason: NAUSEA Pantoprazole Sodium (Protonix Iv) 40 mg IVPUSH DAILY [facility] Last Admin: 07/01/18 11:09 Dose: 40 mg - Objective Vital Signs: Vital Signs Temperature 99.7 F H 07/01/18 14:00 Pulse Rate 100 H 07/01/18 14:00 Respiratory Rate 18 07/01/18 15:22 Blood Pressure 103/51 07/01/18 14:00 O2 Sat by Pulse Oximetry (%) 100 07/01/18 09:00 Vital Signs Period Temp Pulse Resp BP Sys/De La O Pulse Ox Last 24 Hr 99.2 F-101.0 F 86-115 10-30 103-155/47-76 98-100 Intake & Output 07/01/18 07/01/18 07/01/18 07:59 15:59 23:59 Intake Total 232 350 Output Total 600 200 Balance -368 150 Weight 167 lb Intake: IV 32 DIPRIVAN - 1,000,000 mcg 32 In 100 ml @ 5 MCG/KG/MIN 1.894 mls/hr IVPB TITR [facility] Rx#:[id number] IVPB 200 350 Output: Drainage 200 Right Abdomen 200 Urine 400 200 [place] 400 200 Other: Voiding Method Indwelling Catheter Bowel Movement Yes Body Mass Index (BMI) 30.5 Weight Measurement Method Built in [facility] Constitutional: Yes: Well Nourished, No Distress, Calm Labs: CBC, BMP 07/01/18 05:30 07/01/18 05:30 INR, PTT INR 1.27 (0.82-1.09) H 06/12/18 07:47 Microbiology 06/23/18 09:28 Blood - Peripheral Venous Blood Culture - Final NO GROWTH AFTER 5 DAYS INCUBATION 06/23/18 09:35 Blood - Peripheral Venous Blood Culture - Final NO GROWTH AFTER 5 DAYS INCUBATION 06/22/18 Unknown Peritoneal Fluid Gram Stain - Final 06/22/18 Unknown Peritoneal Fluid Body Fluid Culture - Final Enterococcus Raffinosus Escherichia Coli Yeast Like Organism 06/22/18 Unknown Peritoneal Fluid Anaerobic Culture - Final NO ANAEROBES WERE ISOLATED 06/16/18 15:00 Pleural Fluid AFB Smear Concentration - Final 06/16/18 15:00 Pleural Fluid Mycobacterial Culture - Preliminary 06/16/18 15:00 Pleural Fluid Gram Stain - Final 06/16/18 15:00 Pleural Fluid Body Fluid Culture - Final NO GROWTH OF AEROBIC ORGANISMS AFTER 48 HOURS INCUBATION 06/16/18 15:00 Pleural Fluid Anaerobic Culture - Final NO ANAEROBES WERE ISOLATED 06/14/18 08:30 Blood - Peripheral Venous Blood Culture - Final NO GROWTH AFTER 5 DAYS INCUBATION 06/14/18 08:30 Blood - Peripheral Venous Blood Culture - Final NO GROWTH AFTER 5 DAYS INCUBATION 06/16/18 10:00 Sputum - Expectorated Gram Stain - Final 06/16/18 10:00 Sputum - Expectorated Sputum Culture - Final NORMAL RESPIRATORY EFRAIN 06/16/18 15:00 Pleural Fluid JACOB Preparation - Preliminary 06/16/18 15:00 Pleural Fluid Fungal Culture - Preliminary 06/14/18 10:30 Urine - Urine Atwood Urine Culture - Final Escherichia Coli 06/14/18 17:14 Urine For Antigen Detection Legionella Antigen - Final 06/14/18 17:14 Urine For Antigen Detection Streptococcus pneumoniae Antigen (M - Final Problem List - Problems (1) Status post Sam procedure Assessment/Plan: POD#9 s/p Lopez's procedure after colonic perforation with significant fecal peritonitis. Critical condition, off vasopressors for 24hours, protein malutrition of tube feed to goal 55ml/hr. Management per ICU team IVF hydration Ween from ventilatory support Continue RLQ pelvic drain to suction Continue NGT to LCWS Local wound care - Abdominal wound daily or when soiled Dressin" iodoform packing, 4X4 gauze sponges and tape Measurement: upper midline [id number] and lower midline [id number] Consider VAC dressing for midline GI and DVT prophylaxsis will follow This patient is critically ill. Time spent reviewing chart, examining patient, talking with providers and/or family and documentation is 45 minutes Code(s): Z93.3 - COLOSTOMY STATUS (2) Acute on chronic diastolic heart failure Code(s): I50.33 - ACUTE ON CHRONIC DIASTOLIC (CONGESTIVE) HEART FAILURE (3) Acute on chronic respiratory failure with hypoxia and hypercapnia Code(s): J96.21 - ACUTE AND CHRONIC RESPIRATORY FAILURE WITH HYPOXIA; J96.22 - ACUTE AND CHRONIC RESPIRATORY FAILURE WITH HYPERCAPNIA (4) Atrial fibrillation Code(s): I48.91 - UNSPECIFIED ATRIAL FIBRILLATION Qualifiers: Atrial fibrillation type: persistent Qualified Code(s): I48.1 - Persistent atrial fibrillation (5) Hypothyroidism Code(s): E03.9 - HYPOTHYROIDISM, UNSPECIFIED Qualifiers: Hypothyroidism type: unspecified Qualified Code(s): E03.9 - Hypothyroidism , unspecified (6) Perforation of colon as colonoscopy complication Code(s): K63.1 - PERFORATION OF INTESTINE (NONTRAUMATIC); K91.71 - ACCIDENTAL PNCTR & LAC OF A DGSTV SYS ORG DUR DGSTV SYS PROC (7) Pulmonary hypertension Code(s): I27.20 - PULMONARY HYPERTENSION, UNSPECIFIED
[2018-07-01] MEDS: AMINO ACIDS/PROTEIN HYDROLYS 30 ML LIQUID.PKT PO SCH (17:20)
[2018-07-01] MEDS ORDERED: MAGNESIUM SULF 50% (8.12 MEQ/2 ML-1 GM VIAL) IVPB ONE (19:00)
[2018-07-01] MEDS ORDERED: POTASSIUM PHOSPHATE 15 MM in DEXTROSE 5%-WATER - 100 ML IVPB ONE (19:00)
--- NOTE | 2018-07-01 20:29 | PN ---
Physical Exam: SUBJECTIVE: Patient seen and examined OBJECTIVE: Vital Signs Period Temp Pulse Resp BP Sys/De La O Pulse Ox Last 24 Hr 99.2 F-101.0 F 86-102 10-25 103-155/43-76 100-100 sedated, intubated Pulm: diminished MV CV: s1 s2 tachycardia Abd: soft, midline incision intact, drain with yellow output +colostomy no formed stool : kapoor - yellow urine Ext: upper and lower ext swelling Skin: weeping Laboratory Results - last 24 hr 07/01/18 07/01/18 07/01/18 05:30 05:30 05:34 WBC 10.1 H RBC 3.37 L Hgb 8.3 L Hct 25.0 L MCV 74.2 L MCH 24.6 L MCHC 33.2 RDW 31.5 H Plt Count 304 MPV 8.5 Absolute Neuts (auto) 9.1 Neutrophils % 90.0 H Lymphocytes % 2.2 L Monocytes % 7.3 Eosinophils % 0.4 D Basophils % 0.1 Nucleated RBC % 0 Sodium 139 Potassium 3.5 Chloride 103 Carbon Dioxide 29 Anion Gap 7 L BUN 16 Creatinine 0.4 L Creat Clearance w eGFR > 60 POC Glucometer [phone] Random Glucose 222 H Calcium 7.5 L Phosphorus 1.6 L Magnesium 1.7 L Total Bilirubin 1.2 H AST 9 L ALT 8 L Alkaline Phosphatase 77 D Total Protein 4.7 L Albumin 2.8 L 07/01/18 07/01/18 12:35 16:50 WBC RBC Hgb Hct MCV MCH MCHC RDW Plt Count MPV Absolute Neuts (auto) Neutrophils % Lymphocytes % Monocytes % Eosinophils % Basophils % Nucleated RBC % Sodium Potassium Chloride Carbon Dioxide Anion Gap BUN Creatinine Creat Clearance w eGFR POC Glucometer [phone] Random Glucose Calcium Phosphorus Magnesium Total Bilirubin AST ALT Alkaline Phosphatase Total Protein Albumin Active Medications Generic Name Dose Route Start Last Admin Trade Name Freq PRN Reason Stop Dose Admin Albuterol/Ipratropium 1 amp 06/22/18 17:53 Duoneb - NEB Q6H PRN SHORTNESS OF BREATH Amino Acids 30 ml 07/01/18 17:30 07/01/18 17:20 Prosource No Carb Liquid Pkt PO 30 ml BID@0800,1730 [facility] Administration Chlorhexidine Gluconate 1 applic 06/22/18 22:00 06/30/18 21:20 Hibiclens For Decolonization - TP 1 applic HS [facility] Administration Chlorhexidine Gluconate 15 ml 06/23/18 10:00 07/01/18 11:09 Peridex - MM 15 ml BID [facility] Administration Enoxaparin Sodium 70 mg 06/30/18 11:30 07/01/18 11:07 Lovenox - SQ 70 mg BID [facility] Administration Metronidazole 500 mg in 100 mls @ 100 mls/hr 06/22/18 21:00 07/01/18 15:28 Flagyl 500mg Premixed Ivpb - IVPB 100 mls/hr Q6H-IV [facility] Administration Propofol 1,000,000 mcg in 100 mls @ 1.894 mls/hr 06/22/18 18:15 07/01/18 16: 08 Diprivan - IVPB 5 mcg/kg/min TITR [facility] 1.894 mls/hr Titration Protocol 5 MCG/KG/MIN Piperacillin Sod/Tazobactam 50 mls @ 100 mls/hr 06/23/18 02:00 07/01/18 17:20 Sod 3.375 gm/ Dextrose IVPB 100 mls/hr Q8H-IV [facility] Administration Protocol Caspofungin 50 mg/ Sodium 250 mls @ 250 mls/hr 06/26/18 10:00 07/01/18 10:24 Chloride IVPB 250 mls/hr DAILY [facility] Administration Potassium Phosphate 15 mm/ 105 mls @ 52.5 mls/hr 07/01/18 19:00 Dextrose IVPB 07/01/18 20:59 ONCE ONE Insulin Aspart 1 vial 06/22/18 22:00 07/01/18 16:55 Novolog Vial Sliding Scale - SQ 6 units ACHS [facility] Administration Protocol Levothyroxine Sodium 44 mcg 06/23/18 07:00 07/01/18 06:26 Synthroid Injection - IVPUSH 44 mcg 0700 [facility] Administration Metoprolol Tartrate 25 mg 06/30/18 10:45 07/01/18 11:07 Lopressor - NGT 25 mg BID [facility] Administration Ondansetron HCl 4 mg 06/22/18 17:53 Zofran Injection IVPUSH Q6H PRN NAUSEA Pantoprazole Sodium 40 mg 06/23/18 10:00 07/01/18 11:09 Protonix Iv IVPUSH 40 mg DAILY [facility] Administration ASSESSMENT/PLAN: Patient is an 87 year old female with pmhx diastolic CHF, A fib, hypothyroid, CVA, breast CA, iron deficiency, DM II who presents from [facility] for bowel perforation s/p colonoscopy procedure. GI: Sigmoid colonic perforation s/p colonoscopy 06/22, septic shock, fecal peritonitis : s/p Lopez procedure on 06/22/18. On Caspofungin, Zosyn, Flagyl. Monitor labs , vitals. Patient is back on pressors and continues to be sedated/intubated. Pulm: Acute hypercapneic and hypoxic respiratory failure: intubated/sedated. Plan: Continue vent support, wean off pressors as tolerated. Nebulaizers, continue antibiotics Monitor colostomy output, NGT feeds Monitor in the ICU Surgery following full code SCDs Visit type - Emergency Visit Emergency Visit: Yes ED Registration Date: 06/12/18 Care time: The patient presented to the Emergency Department on the above date and was hospitalized for further evaluation of their emergent condition. - New Patient This patient is new to me today: No - Critical Care Critical Care patient: No - Discharge Referral Referred to [facility] Med P.C.: No
[2018-07-01] MEDS ORDERED: PT OWN MED DRAWER 7, Y5N ONE (21:57)
[2018-07-01] MEDS: CHLORHEXIDINE GLUCONATE 4% CLEANSER FOR DECOLONIZATION TP SCH (22:22)
[2018-07-02] MEDS: PIPERACILLIN/TAZOB 3.375 GM 3.375 GM in DEXTROSE 5%-WATER - 50 ML IVPB SCH ×3 (02:25→17:27)
[2018-07-02] MEDS ORDERED: METOPROLOL TARTRATE 5 MG/5 ML VIAL ONE (03:10)
[2018-07-02] MEDS: PROPOFOL 1,000,000 MCG/100 ML VIAL IVPB SCH (03:27)
[2018-07-02] MEDS ORDERED: METOPROLOL TARTRATE 5 MG/5 ML VIAL IVPUSH ONE (04:50)
[2018-07-02] MEDS ORDERED: ACETAMINOPHEN 650 MG SUPP.RECT PR ONE (04:52)
[2018-07-02 05:43] LABS: BASO % 0.2 % (0-2.0); EOS % 0.6 % (0-4.5); HEMATOCRIT 27.4 % (32.4-45.2); HEMOGLOBIN 8.8 GM/dL (10.7-15.3); LYMPH % 2.4 % (8-40); MCH 24.2 pg (25.7-33.7); MEAN CELL VOLUME 75.7 fl (80-96); MEAN PLT VOLUME 8.6 fl (7.5-11.1); MONO % 9.8 % (3.8-10.2); PLATELET COUNT 356 K/MM3 (134-434); RBC 3.62 M/mm3 (3.60-5.2); RDW 31.8 % (11.6-15.6)
[2018-07-02 06:22] LABS: ALBUMIN 2.3 g/dl (3.4-5.0); ANION GAP 8 (8-16); BLOOD UREA NITROGEN 23 mg/dL (7-18); CALCIUM 7.6 mg/dL (8.5-10.1); CHLORIDE 106 mmol/L (98-107); CO2 27 mmol/L (21-32); CREATININE 0.5 mg/dL (0.55-1.02); GLUCOSE,RANDOM 214 mg/dL (74-106); MAGNESIUM 2.3 mg/dL (1.8-2.4); POTASSIUM 3.6 mmol/L (3.5-5.1); SGOT/AST 10 U/L (15-37); SGPT/ALT < 6 U/L (12-78); SODIUM 141 mmol/L (136-145)
[2018-07-02 06:23] LABS: ALK PHOS 84 U/L (45-117); TOT PROT 4.6 g/dl (6.4-8.2)
[2018-07-02] MEDS: INSULIN SLIDING SCALE (NOVOLOG) 1 VIAL SQ SCH ×4 (06:52→21:11)
[2018-07-02] MEDS: LEVOTHYROXINE SODIUM 100 MCG VIAL IVPUSH SCH (07:01)
--- NOTE | 2018-07-02 07:37 | PN ---
Progress Note (short form) - Note Progress Note: PULM/CCM Pt seen and examined in the ICU. Remains off pressors, intubated, lightly sedated, following simple commands, low grade fever O/N. OBJECTIVE: V/S Period Temp Pulse Resp BP Sys/De La O Pulse Ox Last 24 Hr 98.5 F-101.1 F 100-139 10-25 96-126/43-65 100-100 Intake & Output 06/29/18 06/30/18 07/01/18 07/02/18 23:59 23:59 23:59 23:59 Intake Total 3211.6 1729 946 200 Output Total 1125 2350 1370 400 Balance 2086.6 -621 -424 -200 Weight 74.049 kg 76.204 kg 75.75 kg 76.657 kg GEN: Elderly woman intubated, sedated PULM: diminished MV CV: nml S1 S2, irreg/irreg, tachy ABD: soft, midline incision intact, drain with yellow output +colostomy no formed stool EXT: + Pulses, WWP, + edema SKIN: weeping CBC, BMP 07/02/18 05:15 07/02/18 05:15 Microbiology 06/23/18 09:28 Blood - Peripheral Venous Blood Culture - Final NO GROWTH AFTER 5 DAYS INCUBATION 06/23/18 09:35 Blood - Peripheral Venous Blood Culture - Final NO GROWTH AFTER 5 DAYS INCUBATION 06/22/18 Unknown Peritoneal Fluid Gram Stain - Final 06/22/18 Unknown Peritoneal Fluid Body Fluid Culture - Final Enterococcus Raffinosus Escherichia Coli Yeast Like Organism 06/22/18 Unknown Peritoneal Fluid Anaerobic Culture - Final NO ANAEROBES WERE ISOLATED 06/16/18 15:00 Pleural Fluid AFB Smear Concentration - Final 06/16/18 15:00 Pleural Fluid Mycobacterial Culture - Preliminary 06/16/18 15:00 Pleural Fluid Gram Stain - Final 06/16/18 15:00 Pleural Fluid Body Fluid Culture - Final NO GROWTH OF AEROBIC ORGANISMS AFTER 48 HOURS INCUBATION 06/16/18 15:00 Pleural Fluid Anaerobic Culture - Final NO ANAEROBES WERE ISOLATED 06/14/18 08:30 Blood - Peripheral Venous Blood Culture - Final NO GROWTH AFTER 5 DAYS INCUBATION 06/14/18 08:30 Blood - Peripheral Venous Blood Culture - Final NO GROWTH AFTER 5 DAYS INCUBATION 06/16/18 10:00 Sputum - Expectorated Gram Stain - Final 06/16/18 10:00 Sputum - Expectorated Sputum Culture - Final NORMAL RESPIRATORY EFRAIN 06/16/18 15:00 Pleural Fluid JACOB Preparation - Preliminary 06/16/18 15:00 Pleural Fluid Fungal Culture - Preliminary 06/14/18 10:30 Urine - Urine [place] Urine Culture - Final Escherichia Coli 06/14/18 17:14 Urine For Antigen Detection Legionella Antigen - Final 06/14/18 17:14 Urine For Antigen Detection Streptococcus pneumoniae Antigen (M - Final Active Medications Albuterol/Ipratropium (Duoneb -) 1 amp NEB Q6H PRN PRN Reason: SHORTNESS OF BREATH Amino Acids (Prosource No Carb Liquid Pkt) 30 ml PO BID@0800,1730 [facility] Last Admin: 07/01/18 17:20 Dose: 30 ml Chlorhexidine Gluconate (Hibiclens For Decolonization -) 1 applic TP HS [facility] Last Admin: 07/01/18 22:22 Dose: 1 applic Chlorhexidine Gluconate (Peridex -) 15 ml MM BID [facility] Last Admin: 07/01/18 22:05 Dose: 15 ml Enoxaparin Sodium (Lovenox -) 70 mg SQ BID [facility] Last Admin: 07/01/18 22:13 Dose: 70 mg Metronidazole (Flagyl 500mg Premixed Ivpb -) 500 mg in 100 mls @ 100 mls/hr IVPB Q6H-IV [facility] Last Admin: 07/02/18 02:31 Dose: 100 mls/hr Propofol (Diprivan -) 1,000,000 mcg in 100 mls @ 1.894 mls/hr IVPB TITR [facility]; Protocol Last Admin: 07/02/18 03:27 Dose: 5 mcg/kg/min, 1.894 mls/hr Piperacillin Sod/Tazobactam (Sod 3.375 gm/ Dextrose) 50 mls @ 100 mls/hr IVPB Q8H-IV [facility]; Protocol Last Admin: 07/02/18 02:25 Dose: 100 mls/hr Caspofungin 50 mg/ Sodium (Chloride) 250 mls @ 250 mls/hr IVPB DAILY [facility] Last Admin: 07/01/18 10:24 Dose: 250 mls/hr Insulin Aspart (Novolog Vial Sliding Scale -) 1 vial SQ ACHS [facility]; Protocol Last Admin: 07/02/18 06:52 Dose: 4 units Levothyroxine Sodium (Synthroid Injection -) 44 mcg IVPUSH 0700 [facility] Last Admin: 07/02/18 07:01 Dose: 44 mcg Metoprolol Tartrate (Lopressor -) 25 mg NGT BID [facility] Last Admin: 07/01/18 22:00 Dose: Not Given Ondansetron HCl (Zofran Injection) 4 mg IVPUSH Q6H PRN PRN Reason: NAUSEA Pantoprazole Sodium (Protonix Iv) 40 mg IVPUSH DAILY [facility] Last Admin: 07/01/18 11:09 Dose: 40 mg CXR 07/01: ETT, NGT, + R IJ TLC in good position, b/l pulmonary edema (My Read). ASSESSMENT AND PLAN: Sigmoid Colon Rupture Fecal Peritonitis Septic Shock Acute Hypoxic and Hypercapneic Respiratory Failure Acute on Chronic Diastolic Heart Failure Pulmonary HTN CAD Atrial Fibrillation with RVR Hyponatremia Hypothyroidism UTI Atelectasis - Cont Vent weaning - Nebs - D/c sedation & SBT - SBT this AM w/ possible plan to extubate --> Bi-Level vs HFNC - Continue Abx - Gentle diuresis - replete e-lytes prn - rate control - AC - monitor ostomy output - enteral feeds - DVT/GI prophylaxis - Surgery to follow DGL, ACNP-BC [facility] ICU PULM/CCM 4421 Critical Care Total Critical Care Time (in minutes): 39 Critical Care Statement: The care of this patient involved high complexity decision making to prevent further life threatening deterioration of the patient 's condition and/or to evaluate & treat vital organ system(s) failure or risk of failure.
[2018-07-02] MEDS ORDERED: FUROSEMIDE 40 MG/4 ML INJECTABLE VIAL IVPUSH STA (08:12)
[2018-07-02] MEDS ORDERED: FUROSEMIDE 40 MG/4 ML INJECTABLE VIAL ONE (08:20)
[2018-07-02] MEDS: AMINO ACIDS/PROTEIN HYDROLYS 30 ML LIQUID.PKT PO SCH ×2 (08:22→17:28)
[2018-07-02] MEDS: FUROSEMIDE INJECTION 100 MG in DEXTROSE 5%-WATER - 90 ML IVPB SCH (09:12)
--- NOTE | 2018-07-02 09:19 | PN ---
Progress Note (short form) - Note Progress Note: extubated this am on high flow oxygen Vital Signs Period Temp Pulse Resp BP Sys/De La O Pulse Ox Last 24 Hr 98.5 F-101.1 F 100-139 14-25 96-126/43-65 100 cor-rrr lungs decreased bs at bases abd soft, dressing intact +ostomy +drain ext +edema kapoor right IJ CVP CBC, BMP 07/02/18 05:15 07/02/18 05:15 Microbiology 06/23/18 09:28 Blood - Peripheral Venous Blood Culture - Final NO GROWTH AFTER 5 DAYS INCUBATION 06/23/18 09:35 Blood - Peripheral Venous Blood Culture - Final NO GROWTH AFTER 5 DAYS INCUBATION 06/22/18 Unknown Peritoneal Fluid Gram Stain - Final 06/22/18 Unknown Peritoneal Fluid Body Fluid Culture - Final Enterococcus Raffinosus Escherichia Coli Yeast Like Organism 06/22/18 Unknown Peritoneal Fluid Anaerobic Culture - Final NO ANAEROBES WERE ISOLATED 06/16/18 15:00 Pleural Fluid AFB Smear Concentration - Final 06/16/18 15:00 Pleural Fluid Mycobacterial Culture - Preliminary 06/16/18 15:00 Pleural Fluid Gram Stain - Final 06/16/18 15:00 Pleural Fluid Body Fluid Culture - Final NO GROWTH OF AEROBIC ORGANISMS AFTER 48 HOURS INCUBATION 06/16/18 15:00 Pleural Fluid Anaerobic Culture - Final NO ANAEROBES WERE ISOLATED 06/14/18 08:30 Blood - Peripheral Venous Blood Culture - Final NO GROWTH AFTER 5 DAYS INCUBATION 06/14/18 08:30 Blood - Peripheral Venous Blood Culture - Final NO GROWTH AFTER 5 DAYS INCUBATION 06/16/18 10:00 Sputum - Expectorated Gram Stain - Final 06/16/18 10:00 Sputum - Expectorated Sputum Culture - Final NORMAL RESPIRATORY EFRAIN 06/16/18 15:00 Pleural Fluid JACOB Preparation - Preliminary 06/16/18 15:00 Pleural Fluid Fungal Culture - Preliminary 06/14/18 10:30 Urine - Urine Kapoor Urine Culture - Final Escherichia Coli 06/14/18 17:14 Urine For Antigen Detection Legionella Antigen - Final 06/14/18 17:14 Urine For Antigen Detection Streptococcus pneumoniae Antigen (M - Final Current Medications Albuterol/Ipratropium (Duoneb -) 1 amp NEB Q6H PRN PRN Reason: SHORTNESS OF BREATH Amino Acids (Prosource No Carb Liquid Pkt) 30 ml PO BID@0800,1730 [facility] Last Admin: 07/02/18 08:22 Dose: 30 ml Chlorhexidine Gluconate (Hibiclens For Decolonization -) 1 applic TP HS [facility] Last Admin: 07/01/18 22:22 Dose: 1 applic Chlorhexidine Gluconate (Peridex -) 15 ml MM BID [facility] Last Admin: 07/01/18 22:05 Dose: 15 ml Enoxaparin Sodium (Lovenox -) 70 mg SQ BID [facility] Last Admin: 07/01/18 22:13 Dose: 70 mg Metronidazole (Flagyl 500mg Premixed Ivpb -) 500 mg in 100 mls @ 100 mls/hr IVPB Q6H-IV [facility] Last Admin: 07/02/18 08:22 Dose: 100 mls/hr Propofol (Diprivan -) 1,000,000 mcg in 100 mls @ 1.894 mls/hr IVPB TITR [facility]; Protocol Last Admin: 07/02/18 03:27 Dose: 5 mcg/kg/min, 1.894 mls/hr Piperacillin Sod/Tazobactam (Sod 3.375 gm/ Dextrose) 50 mls @ 100 mls/hr IVPB Q8H-IV [facility]; Protocol Last Admin: 07/02/18 02:25 Dose: 100 mls/hr Caspofungin 50 mg/ Sodium (Chloride) 250 mls @ 250 mls/hr IVPB DAILY [facility] Last Admin: 07/01/18 10:24 Dose: 250 mls/hr Furosemide 100 mg/ Dextrose 100 mls @ 5 mls/hr IVPB TITR [facility]; Protocol Last Admin: 07/02/18 09:12 Dose: 5 mg/hr, 5 mls/hr Insulin Aspart (Novolog Vial Sliding Scale -) 1 vial SQ ACHS [facility]; Protocol Last Admin: 07/02/18 06:52 Dose: 4 units Levothyroxine Sodium (Synthroid Injection -) 44 mcg IVPUSH 0700 [facility] Last Admin: 07/02/18 07:01 Dose: 44 mcg Metoprolol Tartrate (Lopressor -) 25 mg NGT BID [facility] Last Admin: 07/01/18 22:00 Dose: Not Given Ondansetron HCl (Zofran Injection) 4 mg IVPUSH Q6H PRN PRN Reason: NAUSEA Pantoprazole Sodium (Protonix Iv) 40 mg IVPUSH DAILY [facility] Last Admin: 07/01/18 11:09 Dose: 40 mg a/p POD #10 s/p Lopez s/p colonic perforation/fecal peritonitis sepsis respiratory failure-just extubated afib continue zosyn/flagyl/cancidas reculture for futher temps cxray with congestion, cannot r/o underlying infiltrate being 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
[2018-07-02] MEDS ORDERED: PT OWN MED DRAWER 7, Y5N ONE ×2 (09:33→21:08)
[2018-07-02] MEDS ORDERED: DEXTROSE 5%-WATER - 50 ML IVPB ONE ×3 (09:35→21:08)
[2018-07-02] MEDS ORDERED: PIPERACILLIN/TAZOBACTAM 3.375 GM VIAL IVPB ONE ×3 (09:35→21:08)
[2018-07-02] MEDS: CASPOFUNGIN ACETATE 50 MG in SODIUM CHLORIDE 250 ML IVPB SCH (09:36)
[2018-07-02] MEDS: ENOXAPARIN NA (PORCINE) 80 MG/0.8 ML DISP.SYRIN SQ SCH ×2 (09:36→21:10)
[2018-07-02] MEDS: METOPROLOL TARTRATE 25 MG TABLET (FP) NGT SCH (09:36)
[2018-07-02] MEDS: PANTOPRAZOLE SODIUM 40 MG VIAL IVPUSH SCH (09:37)
[2018-07-02] MEDS: CHLORHEXIDINE GLUCONATE 0.12% 15ML CUP MM SCH ×2 (09:37→21:12)
--- NOTE | 2018-07-02 10:21 | PN ---
Progress Note, Physician Chief Complaint: Events noted Extubated this am Awake, not verbally responsive History of Present Illness: Patient was seen and examined in ICU. Chart was reviewed. Colonic perforation, fecal peritonitis, sepsis post Lopez procedure Off pressor. Awake. Afebrile - Current Medication List Current Medications: Active Medications Albuterol/Ipratropium (Duoneb -) 1 amp NEB Q6H PRN PRN Reason: SHORTNESS OF BREATH Amino Acids (Prosource No Carb Liquid Pkt) 30 ml PO BID@0800,1730 [facility] Last Admin: 07/02/18 08:22 Dose: 30 ml Chlorhexidine Gluconate (Hibiclens For Decolonization -) 1 applic TP HS [facility] Last Admin: 07/01/18 22:22 Dose: 1 applic Chlorhexidine Gluconate (Peridex -) 15 ml MM BID [facility] Last Admin: 07/02/18 09:37 Dose: 15 ml Enoxaparin Sodium (Lovenox -) 70 mg SQ BID [facility] Last Admin: 07/02/18 09:36 Dose: 70 mg Metronidazole (Flagyl 500mg Premixed Ivpb -) 500 mg in 100 mls @ 100 mls/hr IVPB Q6H-IV [facility] Last Admin: 07/02/18 08:22 Dose: 100 mls/hr Piperacillin Sod/Tazobactam (Sod 3.375 gm/ Dextrose) 50 mls @ 100 mls/hr IVPB Q8H-IV [facility]; Protocol Last Admin: 07/02/18 09:37 Dose: 100 mls/hr Caspofungin 50 mg/ Sodium (Chloride) 250 mls @ 250 mls/hr IVPB DAILY [facility] Last Admin: 07/02/18 09:36 Dose: 250 mls/hr Furosemide 100 mg/ Dextrose 100 mls @ 5 mls/hr IVPB TITR [facility]; Protocol Last Admin: 07/02/18 09:12 Dose: 5 mg/hr, 5 mls/hr Insulin Aspart (Novolog Vial Sliding Scale -) 1 vial SQ ACHS [facility]; Protocol Last Admin: 07/02/18 06:52 Dose: 4 units Levothyroxine Sodium (Synthroid Injection -) 44 mcg IVPUSH 0700 [facility] Last Admin: 07/02/18 07:01 Dose: 44 mcg Metoprolol Tartrate (Lopressor -) 25 mg NGT BID [facility] Last Admin: 07/02/18 09:36 Dose: 25 mg Ondansetron HCl (Zofran Injection) 4 mg IVPUSH Q6H PRN PRN Reason: NAUSEA Pantoprazole Sodium (Protonix Iv) 40 mg IVPUSH DAILY [facility] Last Admin: 07/02/18 09:37 Dose: 40 mg - Objective Vital Signs: Vital Signs Temperature 98.1 F 07/02/18 09:55 Pulse Rate 132 H 07/02/18 09:55 Respiratory Rate 17 07/02/18 09:55 Blood Pressure 132/69 07/02/18 09:55 O2 Sat by Pulse Oximetry (%) 94 L 07/02/18 10:04 Neck: Yes: Supple Cardiovascular: Yes: Tachycardia, Pulse Irregular, S1, S2 Respiratory: Yes: Diminished Gastrointestinal: Yes: Other (Post op) Edema: Yes Labs: CBC, BMP 07/02/18 05:15 07/02/18 05:15 Problem List - Problems (1) Septic shock Code(s): A41.9 - SEPSIS, UNSPECIFIED ORGANISM; R65.21 - SEVERE SEPSIS WITH SEPTIC SHOCK (2) Acute hypercapnic respiratory failure Code(s): J96.02 - ACUTE RESPIRATORY FAILURE WITH HYPERCAPNIA (3) Acute on chronic diastolic heart failure Code(s): I50.33 - ACUTE ON CHRONIC DIASTOLIC (CONGESTIVE) HEART FAILURE (4) Acute on chronic respiratory failure with hypoxia and hypercapnia Code(s): J96.21 - ACUTE AND CHRONIC RESPIRATORY FAILURE WITH HYPOXIA; J96.22 - ACUTE AND CHRONIC RESPIRATORY FAILURE WITH HYPERCAPNIA (5) Atrial fibrillation Code(s): I48.91 - UNSPECIFIED ATRIAL FIBRILLATION Qualifiers: Atrial fibrillation type: persistent Qualified Code(s): I48.1 - Persistent atrial fibrillation (6) Hypothyroidism Code(s): E03.9 - HYPOTHYROIDISM, UNSPECIFIED Qualifiers: Hypothyroidism type: unspecified Qualified Code(s): E03.9 - Hypothyroidism , unspecified (7) Perforation of colon as colonoscopy complication Code(s): K63.1 - PERFORATION OF INTESTINE (NONTRAUMATIC); K91.71 - ACCIDENTAL PNCTR & LAC OF A DGSTV SYS ORG DUR DGSTV SYS PROC (8) Pleural effusion Code(s): J90 - PLEURAL EFFUSION, NOT ELSEWHERE CLASSIFIED (9) Status post Sam procedure Code(s): Z93.3 - COLOSTOMY STATUS Assessment/Plan 1. Colonic perforation, fecal peritonitis, sepsis post Lopez procedure 2. Septic shock 3. Acute hypoxic and hypercapneic respiratory failure 4. Acute on chronic class II-III NYHA classification LV failure related to diastolic LV dysfunction 5. CAD angina pectoris 6. Severe TR with pulmonary HTN 7. Pleural effusions post right thoracentesis (transudate) 8. Persistent atrial fibrillation with periods of rapid ventricular response [id number] score of 5, not on A/C as patient has declined in past 9. Hypothyroidism 10. Carotid stenosis 11. Anemia 12. E. Coli UTI 13. Hyponatremia improved 14. Improved left Atelectasis PLAN: 1. Antibiotics and antifungals per the primary team/ID 2. Metoprolol as tolerated - uptitrate 3. IV Lasix as needed with caution 4. As outlined in prior notes considering the above noted [id number] score of 5 A/C recommended unless it is absolutely contraindicated 5. Enteral feeds, DVT/GI prophylaxis and supportive care 6. Surgery follow up Guarded Herbie Ruvalcaba MD
[2018-07-02] MEDS ORDERED: METOPROLOL TARTRATE 25 MG TABLET (FP) NGT SCH (14:00)
[2018-07-02] MEDS: METOPROLOL TARTRATE 50 MG TABLET (FP) NGT SCH ×2 (15:18→21:10)
--- NOTE | 2018-07-02 16:07 | PN ---
Physical Exam: SUBJECTIVE: Patient seen and examined at the bedside. Now on high flow oxygen. Awake, eyes open, in no acute distress. OBJECTIVE: Vital Signs Period Temp Pulse Resp BP Sys/De La O Pulse Ox Last 24 Hr 98.1 F-101.1 F 100-139 14-24 96-132/44-69 94-100 General: more awake, eyes open, on high flow oxygen, extubated today Pulm: diminished MV CV: s1 s2 tachycardia on court monitor Abd: soft, midline incision intact, drain with yellow output +colostomy no formed stool : kapoor - yellow urine Ext: upper and lower ext swelling Skin: weeping edema Laboratory Results - last 24 hr 07/01/18 07/02/18 07/02/18 16:50 02:42 05:15 WBC 11.0 H RBC 3.62 Hgb 8.8 L Hct 27.4 L MCV 75.7 L MCH 24.2 L MCHC 32.0 RDW 31.8 H Plt Count 356 MPV 8.6 Absolute Neuts (auto) 9.6 Neutrophils % 87.0 H Lymphocytes % 2.4 L Monocytes % 9.8 Eosinophils % 0.6 Basophils % 0.2 Nucleated RBC % 0 Sodium Potassium Chloride Carbon Dioxide Anion Gap BUN Creatinine Creat Clearance w eGFR POC Glucometer 250.54162 331.47851 Random Glucose Calcium Magnesium Total Bilirubin AST ALT Alkaline Phosphatase Total Protein Albumin 07/02/18 07/02/18 05:15 10:47 WBC RBC Hgb Hct MCV MCH MCHC RDW Plt Count MPV Absolute Neuts (auto) Neutrophils % Lymphocytes % Monocytes % Eosinophils % Basophils % Nucleated RBC % Sodium 141 Potassium 3.6 Chloride 106 Carbon Dioxide 27 Anion Gap 8 BUN 23 H Creatinine 0.5 L Creat Clearance w eGFR > 60 POC Glucometer [phone] Random Glucose 214 H Calcium 7.6 L Magnesium 2.3 Total Bilirubin 1.0 AST 10 L ALT < 6 L Alkaline Phosphatase 84 Total Protein 4.6 L Albumin 2.3 L Active Medications Generic Name Dose Route Start Last Admin Trade Name Freq PRN Reason Stop Dose Admin Albuterol/Ipratropium 1 amp 06/22/18 17:53 Duoneb - NEB Q6H PRN SHORTNESS OF BREATH Amino Acids 30 ml 07/01/18 17:30 07/02/18 08:22 Prosource No Carb Liquid Pkt PO 30 ml BID@0800,1730 [facility] Administration Chlorhexidine Gluconate 1 applic 06/22/18 22:00 07/01/18 22:22 Hibiclens For Decolonization - TP 1 applic HS [facility] Administration Chlorhexidine Gluconate 15 ml 06/23/18 10:00 07/02/18 09:37 Peridex - MM 15 ml BID [facility] Administration Enoxaparin Sodium 70 mg 06/30/18 11:30 07/02/18 09:36 Lovenox - SQ 70 mg BID [facility] Administration Metronidazole 500 mg in 100 mls @ 100 mls/hr 06/22/18 21:00 07/02/18 15:18 Flagyl 500mg Premixed Ivpb - IVPB 100 mls/hr Q6H-IV [facility] Administration Piperacillin Sod/Tazobactam 50 mls @ 100 mls/hr 06/23/18 02:00 07/02/18 09:37 Sod 3.375 gm/ Dextrose IVPB 100 mls/hr Q8H-IV [facility] Administration Protocol Caspofungin 50 mg/ Sodium 250 mls @ 250 mls/hr 06/26/18 10:00 07/02/18 09:36 Chloride IVPB 250 mls/hr DAILY [facility] Administration Furosemide 100 mg/ Dextrose 100 mls @ 5 mls/hr 07/02/18 08:15 07/02/18 09:12 IVPB 5 mg/hr TITR [facility] 5 mls/hr Administration Protocol 5 MG/HR Insulin Aspart 1 vial 06/22/18 22:00 07/02/18 12:16 Novolog Vial Sliding Scale - SQ 6 units ACHS [facility] Administration Protocol Levothyroxine Sodium 44 mcg 06/23/18 07:00 07/02/18 07:01 Synthroid Injection - IVPUSH 44 mcg 0700 [facility] Administration Metoprolol Tartrate 50 mg 07/02/18 14:00 07/02/18 15:18 Lopressor - NGT 50 mg TID [facility] Administration Ondansetron HCl 4 mg 06/22/18 17:53 Zofran Injection IVPUSH Q6H PRN NAUSEA Pantoprazole Sodium 40 mg 06/23/18 10:00 07/02/18 09:37 Protonix Iv IVPUSH 40 mg DAILY [facility] Administration ASSESSMENT/PLAN: Patient is an 87 year old female with pmhx diastolic CHF, A fib, hypothyroid, CVA, breast CA, iron deficiency, DM II who presents from [facility] for bowel perforation s/p colonoscopy procedure. GI: Sigmoid colonic perforation s/p colonoscopy 06/22, septic shock, fecal peritonitis : s/p Lopez procedure on 06/22/18. On Caspofungin, Zosyn, Flagyl. Monitor labs , vitals. Patient is now off pressors. more awake, on high flow oxygen. Pulm: Acute hypercapneic and hypoxic respiratory failure: doing well on high flow oxygen, monitor. Plan: High flow oxygen, wean off as tolerated Nebulaizers, continue antibiotics Monitor colostomy output, NGT feeds Monitor in the ICU Surgery following full code SCDs Visit type - Emergency Visit Emergency Visit: Yes ED Registration Date: 06/12/18 Care time: The patient presented to the Emergency Department on the above date and was hospitalized for further evaluation of their emergent condition. - New Patient This patient is new to me today: No - Critical Care Critical Care patient: Yes Total Critical Care Time (in minutes): 40 Critical Care Statement: The care of this patient involved high complexity decision making to prevent further life threatening deterioration of the patient 's condition and/or to evaluate & treat vital organ system(s) failure or risk of failure. - Discharge Referral Referred to [facility] No
[2018-07-02] MEDS: ACETAMINOPHEN 1000 MG/100 ML VIAL (NON FORMULARY) IVPB PRN (20:35)
[2018-07-02] MEDS: CHLORHEXIDINE GLUCONATE 4% CLEANSER FOR DECOLONIZATION TP SCH (21:13)
[2018-07-03] MEDS: PIPERACILLIN/TAZOB 3.375 GM 3.375 GM in DEXTROSE 5%-WATER - 50 ML IVPB SCH ×3 (02:00→17:08)
[2018-07-03] MEDS: ACETAMINOPHEN 1000 MG/100 ML VIAL (NON FORMULARY) IVPB PRN ×3 (05:14→21:17)
[2018-07-03] MEDS: METOPROLOL TARTRATE 50 MG TABLET (FP) NGT SCH ×3 (05:14→21:16)
[2018-07-03 05:39] LABS: BASO % 0.5 % (0-2.0); EOS % 1.2 % (0-4.5); HEMATOCRIT 27.2 % (32.4-45.2); LYMPH % 3.3 % (8-40); MCH 24.6 pg (25.7-33.7); MEAN CELL VOLUME 74.5 fl (80-96); MEAN PLT VOLUME 8.6 fl (7.5-11.1); MONO % 10.6 % (3.8-10.2); NEUT % 84.4 % (42.8-82.8); PLATELET COUNT 383 K/MM3 (134-434); RBC 3.65 M/mm3 (3.60-5.2); RDW 31.9 % (11.6-15.6); WHITE BLOOD COUNT 11.4 K/mm3 (4.0-10.0)
[2018-07-03] MEDS: LEVOTHYROXINE SODIUM 100 MCG VIAL IVPUSH SCH (06:31)
[2018-07-03] MEDS: INSULIN SLIDING SCALE (NOVOLOG) 1 VIAL SQ SCH ×4 (06:31→22:00)
[2018-07-03 06:36] LABS: CHLORIDE 100 mmol/L (98-107); SODIUM 139 mmol/L (136-145)
[2018-07-03 06:43] LABS: ALK PHOS 90 U/L (45-117); ANION GAP 8 (8-16); BILIRUBIN,TOTAL 1.3 mg/dL (0.2-1.0); BLOOD UREA NITROGEN 19 mg/dL (7-18); CALCIUM 7.1 mg/dL (8.5-10.1); CO2 31 mmol/L (21-32); CREATININE 0.4 mg/dL (0.55-1.02); GLUCOSE,RANDOM 183 mg/dL (74-106); MAGNESIUM 1.7 mg/dL (1.8-2.4); PHOSPHOROUS 2.1 mg/dL (2.5-4.9); SGOT/AST 18 U/L (15-37); SGPT/ALT 9 U/L (12-78); TOT PROT 4.4 g/dl (6.4-8.2)
[2018-07-03 07:16] LABS: POTASSIUM 2.9 mmol/L (3.5-5.1)
[2018-07-03] MEDS ORDERED: POTASSIUM CHLORIDE 10 MEQ PREMIX IVPB (POTASSIUM RIDER) IVPB SCH (07:17)
[2018-07-03] MEDS ORDERED: MAGNESIUM 2GM/50ML STERILE WATER IVPB IVPB ONE (07:53)
[2018-07-03] MEDS ORDERED: NAPH,MB-DB/K PH,MBDB POWDER PACKET PO ONE (07:53)
--- NOTE | 2018-07-03 07:53 | PN ---
Progress Note (short form) - Note Progress Note: POD #11 Patient extubated 8/12. Doing well. No signs of resp distress. Remains off pressors. Eyes open. Answers yes/no questions by nodding. Hurts to phonate secondary to prolonged intubation. Denies n/v/f/c, CP or SOB. Last Vital Signs Temp Pulse Resp BP Pulse Ox 99.2 F 100 H 20 112/57 99 07/03/18 07:00 07/03/18 07:00 07/03/18 07:00 07/03/18 07:00 07/03/18 06:38 CBC, BMP 07/03/18 05:15 07/03/18 05:15 INR, PTT INR 1.27 (0.82-1.09) H 06/12/18 07:47 OUTPUT TREND 18 07/02/18 07/02/18 07/03/18 15:00 18:30 22:00 06:00 Colostomy Gregory Sump 80 10 0 Kapoor 1,700 1,300 600 900 NGT 0 PE Gen: alert. nad Abd: midline incision open with few intermittent cassie for umbilical re- approximation. Superior & inferior poles of wound with mixed fibrogranular tissue to base. Clean. Deep fascia intact. Ostomy viable. Gregory sump (serous/asictes) Extrem: anasarca : kapoor to gravity Problem List - Problems (1) Status post Sam procedure Assessment/Plan: POD #11 s/p Lopez Procedure secondary to sigmoid perforation during colonoscopy resulting in fecal peritonitis and spetic shock. IVF hydration Diuresis Nutrition --> tube feed to goal 55ml/hr. Cont Gregory Sump Dressing changed on round (mechanically debrided midline wound with 4x4), packed with moist kerlix. Replete K 2.9 (riders ordered) Cont ICU management GI & DVT PPX Speech & Swallow eval/consult IV ABX per ID PT for possible OOB to chair DC right IJ central line as it's been in > 7 days. Above discussed with Dr. Lora and agrees Code(s): Z93.3 - COLOSTOMY STATUS
[2018-07-03] MEDS ORDERED: DEXTROSE 5%-WATER - 50 ML IVPB ONE ×3 (08:17→21:03)
[2018-07-03] MEDS ORDERED: PIPERACILLIN/TAZOBACTAM 3.375 GM VIAL IVPB ONE ×3 (08:17→21:03)
[2018-07-03] MEDS: AMINO ACIDS/PROTEIN HYDROLYS 30 ML LIQUID.PKT PO SCH ×2 (08:31→17:08)
[2018-07-03] MEDS: FUROSEMIDE INJECTION 100 MG in DEXTROSE 5%-WATER - 90 ML IVPB SCH ×2 (08:31→21:18)
[2018-07-03] MEDS: ENOXAPARIN NA (PORCINE) 80 MG/0.8 ML DISP.SYRIN SQ SCH ×2 (09:32→21:16)
[2018-07-03] MEDS: PANTOPRAZOLE SODIUM 40 MG VIAL IVPUSH SCH (09:33)
[2018-07-03] MEDS: POTASSIUM CHLORIDE ORAL LIQUID 20 MEQ/15 ML GT SCH ×2 (09:33→21:18)
[2018-07-03] MEDS: CASPOFUNGIN ACETATE 50 MG in SODIUM CHLORIDE 250 ML IVPB SCH (10:14)
--- NOTE | 2018-07-03 11:54 | PN ---
Progress Note, Physician History of Present Illness: Extubated . Breathing non-labored on high flow O2 Off sedation and pressors Afebrile WBC 11.4 Operative cultures Enterococcus, E. coli, yeast - Current Medication List Current Medications: Active Medications Acetaminophen (Ofirmev Injection -) 1,000 mg IVPB Q6H PRN PRN Reason: PAIN Last Admin: 07/03/18 05:14 Dose: 1,000 mg Albuterol/Ipratropium (Duoneb -) 1 amp NEB Q6H PRN PRN Reason: SHORTNESS OF BREATH Amino Acids (Prosource No Carb Liquid Pkt) 30 ml PO BID@0800,1730 [facility] Last Admin: 07/03/18 08:31 Dose: 30 ml Enoxaparin Sodium (Lovenox -) 70 mg SQ BID [facility] Last Admin: 07/03/18 09:32 Dose: 70 mg Metronidazole (Flagyl 500mg Premixed Ivpb -) 500 mg in 100 mls @ 100 mls/hr IVPB Q6H-IV [facility] Last Admin: 07/03/18 08:43 Dose: 100 mls/hr Piperacillin Sod/Tazobactam (Sod 3.375 gm/ Dextrose) 50 mls @ 100 mls/hr IVPB Q8H-IV [facility]; Protocol Last Admin: 07/03/18 09:34 Dose: 100 mls/hr Caspofungin 50 mg/ Sodium (Chloride) 250 mls @ 250 mls/hr IVPB DAILY [facility] Last Admin: 07/03/18 10:14 Dose: 250 mls/hr Furosemide 100 mg/ Dextrose 100 mls @ 5 mls/hr IVPB TITR [facility]; Protocol Last Admin: 07/03/18 08:31 Dose: 5 mg/hr, 5 mls/hr Insulin Aspart (Novolog Vial Sliding Scale -) 1 vial SQ ACHS [facility]; Protocol Last Admin: 07/03/18 06:31 Dose: 4 units Levothyroxine Sodium (Synthroid Injection -) 44 mcg IVPUSH 0700 [facility] Last Admin: 07/03/18 06:31 Dose: 44 mcg Metoprolol Tartrate (Lopressor -) 50 mg NGT TID [facility] Last Admin: 07/03/18 05:14 Dose: 50 mg Ondansetron HCl (Zofran Injection) 4 mg IVPUSH Q6H PRN PRN Reason: NAUSEA Pantoprazole Sodium (Protonix Iv) 40 mg IVPUSH DAILY [facility] Last Admin: 07/03/18 09:33 Dose: 40 mg Potassium Chloride (Potassium Chloride Oral Liquid) 40 meq GT BID [facility] Last Admin: 07/03/18 09:33 Dose: 40 meq - Objective Vital Signs: Vital Signs Temperature 99.1 F 07/03/18 10:11 Pulse Rate 104 H 07/03/18 10:11 Respiratory Rate 17 07/03/18 10:11 Blood Pressure 109/84 07/03/18 10:11 O2 Sat by Pulse Oximetry (%) 96 07/03/18 08:35 Constitutional: Yes: No Distress Cardiovascular: Yes: Regular Rate and Rhythm, S1, S2 Respiratory: Yes: Diminished Gastrointestinal: Yes: Soft, Other (+ surgical wound, ostomy) Edema: Yes Edema: LLE: 1+, RLE: 1+ Labs: CBC, BMP 07/03/18 05:15 07/03/18 05:15 INR, PTT INR 1.27 (0.82-1.09) H 06/12/18 07:47 Assessment/Plan POD #11 Lopez procedure Colonic perforation, fecal peritonitis Sepsis/ septic shock secondary to GI source Operative c/s Enterococcus, E coli, Yeast Pulmonary vascular congestion ? pneumonia Continue empiric zosyn/ flagyl / cancidas ICU monitoring Prognosis guarded
--- NOTE | 2018-07-03 12:20 | PN ---
Teaching Attending Note Name of Resident: Alfredo Rodriguez ATTENDING PHYSICIAN STATEMENT I saw and evaluated the patient. I reviewed the resident's note and discussed the case with the resident. I agree with the resident's findings and plan as documented. SUBJECTIVE: Patient seen and examined in the ICU. Remains off pressors. Mildly tachypneic on HF NC O2. Awake and interactive. Appears very weak. OBJECTIVE: Intake & Output 06/30/18 07/01/18 07/02/18 07/03/18 23:59 23:59 23:59 23:59 Intake Total 7212 681 0061 495 Output Total 2350 1370 4360 1500 Balance -621 -424 -3253 -1005 Weight 168 lb 167 lb 169 lb 142 lb 6 oz Last Vital Signs Temp Pulse Resp BP Pulse Ox 99.1 F 104 H 17 109/84 96 07/03/18 10:11 07/03/18 10:11 07/03/18 10:11 07/03/18 10:11 07/03/18 08:35 Active Medications Acetaminophen (Ofirmev Injection -) 1,000 mg IVPB Q6H PRN PRN Reason: PAIN Last Admin: 07/03/18 05:14 Dose: 1,000 mg Albuterol/Ipratropium (Duoneb -) 1 amp NEB Q6H PRN PRN Reason: SHORTNESS OF BREATH Amino Acids (Prosource No Carb Liquid Pkt) 30 ml PO BID@0800,1730 [facility] Last Admin: 07/03/18 08:31 Dose: 30 ml Enoxaparin Sodium (Lovenox -) 70 mg SQ BID [facility] Last Admin: 07/03/18 09:32 Dose: 70 mg Metronidazole (Flagyl 500mg Premixed Ivpb -) 500 mg in 100 mls @ 100 mls/hr IVPB Q6H-IV [facility] Last Admin: 07/03/18 08:43 Dose: 100 mls/hr Piperacillin Sod/Tazobactam (Sod 3.375 gm/ Dextrose) 50 mls @ 100 mls/hr IVPB Q8H-IV [facility]; Protocol Last Admin: 07/03/18 09:34 Dose: 100 mls/hr Caspofungin 50 mg/ Sodium (Chloride) 250 mls @ 250 mls/hr IVPB DAILY [facility] Last Admin: 07/03/18 10:14 Dose: 250 mls/hr Furosemide 100 mg/ Dextrose 100 mls @ 5 mls/hr IVPB TITR [facility]; Protocol Last Admin: 07/03/18 08:31 Dose: 5 mg/hr, 5 mls/hr Insulin Aspart (Novolog Vial Sliding Scale -) 1 vial SQ ACHS [facility]; Protocol Last Admin: 07/03/18 12:12 Dose: 4 units Levothyroxine Sodium (Synthroid Injection -) 44 mcg IVPUSH 0700 [facility] Last Admin: 07/03/18 06:31 Dose: 44 mcg Metoprolol Tartrate (Lopressor -) 50 mg NGT TID [facility] Last Admin: 07/03/18 05:14 Dose: 50 mg Ondansetron HCl (Zofran Injection) 4 mg IVPUSH Q6H PRN PRN Reason: NAUSEA Pantoprazole Sodium (Protonix Iv) 40 mg IVPUSH DAILY [facility] Last Admin: 07/03/18 09:33 Dose: 40 mg Potassium Chloride (Potassium Chloride Oral Liquid) 40 meq GT BID [facility] Last Admin: 07/03/18 09:33 Dose: 40 meq GEN: Elderly woman, mildly tachypneic on HF NC O2 PULM: Bilateral scattered rhonchi, diminished at the bases CV: nml S1 S2, irreg/irreg, tachy ABD: soft, midline incision intact, drain with yellow output (+) liquid stool in colostomy EXT: + Pulses, (+) edema SKIN: weeping Laboratory Results - last 24 hr 07/02/18 07/02/18 07/03/18 17:14 21:05 05:15 WBC RBC Hgb Hct MCV MCH MCHC RDW Plt Count MPV Absolute Neuts (auto) Neutrophils % Lymphocytes % Monocytes % Eosinophils % Basophils % Nucleated RBC % Sodium 139 Potassium 2.9 L* Chloride 100 Carbon Dioxide 31 Anion Gap 8 BUN 19 H Creatinine 0.4 L Creat Clearance w eGFR > 60 POC Glucometer 179.85293 192.85367 Random Glucose 183 H Calcium 7.1 L Phosphorus 2.1 L Magnesium 1.7 L Total Bilirubin 1.3 H AST 18 ALT 9 L Alkaline Phosphatase 90 Total Protein 4.4 L Albumin 2.0 L 07/03/18 07/03/18 05:15 06:08 WBC 11.4 H RBC 3.65 Hgb 9.0 L Hct 27.2 L MCV 74.5 L MCH 24.6 L MCHC 33.0 RDW 31.9 H Plt Count 383 MPV 8.6 Absolute Neuts (auto) 9.6 Neutrophils % 84.4 H Lymphocytes % 3.3 L D Monocytes % 10.6 H Eosinophils % 1.2 D Basophils % 0.5 Nucleated RBC % 0 Sodium Potassium Chloride Carbon Dioxide Anion Gap BUN Creatinine Creat Clearance w eGFR POC Glucometer 223.88117 Random Glucose Calcium Phosphorus Magnesium Total Bilirubin AST ALT Alkaline Phosphatase Total Protein Albumin ASSESSMENT AND PLAN: Sigmoid Colon Rupture Fecal Peritonitis Septic Shock Acute Hypoxic and Hypercapneic Respiratory Failure Acute on Chronic Diastolic Heart Failure Pulmonary HTN CAD Atrial Fibrillation with RVR Hyponatremia Hypothyroidism UTI Atelectasis HF NC O2 for WOB BD TX ABX per ID Diuresis as tolerated Replete electrolytes as needed Rate control AC Monitor ostomy output Enteral feeds as tolerated DVT/GI prophylaxis Wound care per surgery: (?) D/C drain as reported no output Dr Staton Critical care time spent in reviewing chart, evaluating patient and formulating plan - 36 minutes.
--- NOTE | 2018-07-03 12:50 | PN ---
Physical Exam: SUBJECTIVE: Patient seen and examined in ICU. Remains extubated, off pressors, lasix gtt. Nods to simple questioning. OBJECTIVE: Vital Signs Period Temp Pulse Resp BP Sys/De La O Pulse Ox Last 24 Hr 98.6 F-99.7 F 97-122 17-21 101-134/47-92 93-99 PE Neuro: awake, oriented to person, follows simple commands HEENT: OG tube Pulm: mild tachypnea, diminished R, scattered + high flow o2 CV: s1 s2 irregular tachycardia Abd: soft, midline incision intact, drain with yellow output +colostomy liquid stool : kapoor Ext: upper and lower ext swelling Skin: weeping Laboratory Results - last 24 hr 07/02/18 07/02/18 07/03/18 17:14 21:05 05:15 WBC RBC Hgb Hct MCV MCH MCHC RDW Plt Count MPV Absolute Neuts (auto) Neutrophils % Lymphocytes % Monocytes % Eosinophils % Basophils % Nucleated RBC % Sodium 139 Potassium 2.9 L* Chloride 100 Carbon Dioxide 31 Anion Gap 8 BUN 19 H Creatinine 0.4 L Creat Clearance w eGFR > 60 POC Glucometer 179.32126 192.25104 Random Glucose 183 H Calcium 7.1 L Phosphorus 2.1 L Magnesium 1.7 L Total Bilirubin 1.3 H AST 18 ALT 9 L Alkaline Phosphatase 90 Total Protein 4.4 L Albumin 2.0 L 07/03/18 07/03/18 07/03/18 05:15 06:08 12:11 WBC 11.4 H RBC 3.65 Hgb 9.0 L Hct 27.2 L MCV 74.5 L MCH 24.6 L MCHC 33.0 RDW 31.9 H Plt Count 383 MPV 8.6 Absolute Neuts (auto) 9.6 Neutrophils % 84.4 H Lymphocytes % 3.3 L D Monocytes % 10.6 H Eosinophils % 1.2 D Basophils % 0.5 Nucleated RBC % 0 Sodium Potassium Chloride Carbon Dioxide Anion Gap BUN Creatinine Creat Clearance w eGFR POC Glucometer 223.74101 231.87197 Random Glucose Calcium Phosphorus Magnesium Total Bilirubin AST ALT Alkaline Phosphatase Total Protein Albumin Active Medications Generic Name Dose Route Start Last Admin Trade Name Freq PRN Reason Stop Dose Admin Acetaminophen 1,000 mg 07/02/18 20:17 07/03/18 05:14 Ofirmev Injection - IVPB 1,000 mg Q6H PRN Administration PAIN Albuterol/Ipratropium 1 amp 06/22/18 17:53 Duoneb - NEB Q6H PRN SHORTNESS OF BREATH Amino Acids 30 ml 07/01/18 17:30 07/03/18 08:31 Prosource No Carb Liquid Pkt PO 30 ml BID@0800,1730 [facility] Administration Enoxaparin Sodium 70 mg 06/30/18 11:30 07/03/18 09:32 Lovenox - SQ 70 mg BID [facility] Administration Metronidazole 500 mg in 100 mls @ 100 mls/hr 06/22/18 21:00 07/03/18 08:43 Flagyl 500mg Premixed Ivpb - IVPB 100 mls/hr Q6H-IV [facility] Administration Piperacillin Sod/Tazobactam 50 mls @ 100 mls/hr 06/23/18 02:00 07/03/18 09:34 Sod 3.375 gm/ Dextrose IVPB 100 mls/hr Q8H-IV [facility] Administration Protocol Caspofungin 50 mg/ Sodium 250 mls @ 250 mls/hr 06/26/18 10:00 07/03/18 10:14 Chloride IVPB 250 mls/hr DAILY [facility] Administration Furosemide 100 mg/ Dextrose 100 mls @ 5 mls/hr 07/02/18 08:15 07/03/18 08:31 IVPB 5 mg/hr TITR [facility] 5 mls/hr Administration Protocol 5 MG/HR Insulin Aspart 1 vial 06/22/18 22:00 07/03/18 12:12 Novolog Vial Sliding Scale - SQ 4 units ACHS [facility] Administration Protocol Levothyroxine Sodium 44 mcg 06/23/18 07:00 07/03/18 06:31 Synthroid Injection - IVPUSH 44 mcg 0700 [facility] Administration Metoprolol Tartrate 50 mg 07/02/18 14:00 07/03/18 05:14 Lopressor - NGT 50 mg TID [facility] Administration Ondansetron HCl 4 mg 06/22/18 17:53 Zofran Injection IVPUSH Q6H PRN NAUSEA Pantoprazole Sodium 40 mg 06/23/18 10:00 07/03/18 09:33 Protonix Iv IVPUSH 40 mg DAILY [facility] Administration Potassium Chloride 40 meq 07/03/18 10:00 07/03/18 09:33 Potassium Chloride Oral Liquid GT 40 meq BID [facility] Administration Assessment: 87 year old female with pmhx diastolic CHF, A fib, hypothyroid, CVA , breast CA, iron deficiency, DM II [facility] lethargy and blood transfusion. Referred for colonoscopy at [facility], post procedure distention concern for perforation, transferred to [facility] for ex lap and surgical resection of rectosigmoid colon with end colostomy hospital course c/b septic shock with ongoing pressor requirement, now extubated and off pressors. Plan: 1. Sigmoid colonic perforation s/p colonoscopy 06/22, septic shock, fecal peritonitis - S/p Lopez procedure on 06/22/18 - Leukocytosis improving - Continue Caspofungin - Continue Flagyl - Continue Zosyn 2. Acute hypercapneic and hypoxic respiratory failure - Extubated 07/02 - Continue High flow oxygen 3. Acute on chronic diastolic heart failure - Continue lasix gtt, + urine outpt 4. A.fib, uncontrolled - Metoprolol 50mg BID - Lovenox 80mg BID - [id number] score of 5 A/C recommended, consider once stable 5. B/l pneumonia - Continue abx as above 6. Hypothyroidism, sick euthyroid - Continue synthroid 7. E. coli UTI - Abx as above 8. Nutrition - Continue TF 9. Electrolytes - Hypokalemia: kcl 40meq BID - Hypophosphatemia: kphos pk + 15mmol pot phosphate 10. Carotid artery stenosis - Carotid doppler with extensive atherosclerotic disease with stenosis in the 80 -99% range involving the right ICA and in the 60-79% range involving the left carotid bifurcation - Will need vascular surgery evaluation once more stable CODE STATUS: FULL CODE Visit type - Emergency Visit Emergency Visit: Yes ED Registration Date: 06/12/18 Care time: The patient presented to the Emergency Department on the above date and was hospitalized for further evaluation of their emergent condition. - New Patient This patient is new to me today: No - Critical Care Critical Care patient: No
[2018-07-03] MEDS ORDERED: POTASSIUM PHOSPHATE 15 MM in DEXTROSE 5%-WATER - 250 ML IVPB ONE (13:28)
[2018-07-03] MEDS ORDERED: ONDANSETRON 4 MG/2 ML VIAL IVPUSH PRN (13:44)
[2018-07-03] MEDS ORDERED: LIDOCAINE HCL 1%, 10 MG/ML (20ML VIAL) ONE (14:07)
--- NOTE | 2018-07-03 14:24 | PROC ---
Procedure Note Procedure: RLQ prepped and draped in sterile fashion. Area around sump drain anest with 20cc 1% Lido. Removed drain with distal tip fully intact. Ascites draining. 2 vertical mattress sutures 1 interrupted suture Clean dry dressing applied. No complications. Patient tolerated well.
[2018-07-03 14:25] LABS: ANION GAP 6 (8-16); BLOOD UREA NITROGEN 20 mg/dL (7-18); CHLORIDE 103 mmol/L (98-107); CO2 33 mmol/L (21-32); CREATININE 0.4 mg/dL (0.55-1.02); GLUCOSE,RANDOM 184 mg/dL (74-106); MAGNESIUM 2.1 mg/dL (1.8-2.4); PHOSPHOROUS 2.1 mg/dL (2.5-4.9); POTASSIUM 3.2 mmol/L (3.5-5.1); SODIUM 142 mmol/L (136-145)
[2018-07-03 14:29] LABS: CALCIUM 6.9 mg/dL (8.5-10.1)
[2018-07-03 14:58] VITALS: BMI 25.9
--- NOTE | 2018-07-03 15:18 | PN ---
Progress Note, Physician History of Present Illness: Remains on HF O2 NC and arousable s/p Lopez's procedure and fecal peritonitis. Remains off pressors in rate-controlled afib. - Current Medication List Current Medications: Active Medications Acetaminophen (Ofirmev Injection -) 1,000 mg IVPB Q6H PRN PRN Reason: PAIN Last Admin: 07/03/18 12:54 Dose: 1,000 mg Albuterol/Ipratropium (Duoneb -) 1 amp NEB Q6H PRN PRN Reason: SHORTNESS OF BREATH Amino Acids (Prosource No Carb Liquid Pkt) 30 ml PO BID@0800,1730 [facility] Last Admin: 07/03/18 08:31 Dose: 30 ml Enoxaparin Sodium (Lovenox -) 70 mg SQ BID [facility] Last Admin: 07/03/18 09:32 Dose: 70 mg Metronidazole (Flagyl 500mg Premixed Ivpb -) 500 mg in 100 mls @ 100 mls/hr IVPB Q6H-IV [facility] Last Admin: 07/03/18 08:43 Dose: 100 mls/hr Piperacillin Sod/Tazobactam (Sod 3.375 gm/ Dextrose) 50 mls @ 100 mls/hr IVPB Q8H-IV [facility]; Protocol Last Admin: 07/03/18 09:34 Dose: 100 mls/hr Caspofungin 50 mg/ Sodium (Chloride) 250 mls @ 250 mls/hr IVPB DAILY [facility] Last Admin: 07/03/18 10:14 Dose: 250 mls/hr Furosemide 100 mg/ Dextrose 100 mls @ 5 mls/hr IVPB TITR [facility]; Protocol Last Admin: 07/03/18 08:31 Dose: 5 mg/hr, 5 mls/hr Potassium Phosphate 15 mm/ (Dextrose) 255 mls @ 62.5 mls/hr IVPB ONCE ONE Stop: 07/03/18 17:32 Insulin Aspart (Novolog Vial Sliding Scale -) 1 vial SQ ACHS [facility]; Protocol Last Admin: 07/03/18 12:12 Dose: 4 units Levothyroxine Sodium (Synthroid Injection -) 44 mcg IVPUSH 0700 [facility] Last Admin: 07/03/18 06:31 Dose: 44 mcg Metoprolol Tartrate (Lopressor -) 50 mg NGT TID [facility] Last Admin: 07/03/18 13:06 Dose: 50 mg Ondansetron HCl (Zofran Injection) 4 mg IVPUSH Q8H PRN PRN Reason: NAUSEA Pantoprazole Sodium (Protonix Iv) 40 mg IVPUSH DAILY [facility] Last Admin: 07/03/18 09:33 Dose: 40 mg Potassium Chloride (Potassium Chloride Oral Liquid) 40 meq GT BID [facility] Last Admin: 07/03/18 09:33 Dose: 40 meq - Objective Vital Signs: Vital Signs Temperature 99.7 F H 07/03/18 12:00 Pulse Rate 102 H 07/03/18 13:00 Respiratory Rate 14 07/03/18 13:00 Blood Pressure 100/56 07/03/18 13:00 O2 Sat by Pulse Oximetry (%) 98 07/03/18 13:53 Constitutional: Yes: No Distress, Calm, Thin Neck: Yes: Supple Cardiovascular: Yes: Pulse Irregular, Murmur (2/6 SM) Respiratory: Yes: Diminished, On Nasal O2, Rhonchi Gastrointestinal: Yes: Soft, Hypoactive Bowel Sounds, Other (Drain d/johnny) Edema: Yes Edema: LUE: 1+, RUE: 1+, LLE: 2+, RLE: 2+ Labs: CBC, BMP 07/03/18 05:15 07/03/18 13:37 INR, PTT INR 1.27 (0.82-1.09) H 06/12/18 07:47 - ....Imaging Chest X-ray: Report Reviewed (Mod bilateral pleural effusions) Problem List - Problems (1) Acute on chronic diastolic heart failure Code(s): I50.33 - ACUTE ON CHRONIC DIASTOLIC (CONGESTIVE) HEART FAILURE (2) Atrial fibrillation Code(s): I48.91 - UNSPECIFIED ATRIAL FIBRILLATION Qualifiers: Atrial fibrillation type: persistent Qualified Code(s): I48.1 - Persistent atrial fibrillation (3) Pleural effusion Code(s): J90 - PLEURAL EFFUSION, NOT ELSEWHERE CLASSIFIED (4) Hypothyroidism Code(s): E03.9 - HYPOTHYROIDISM, UNSPECIFIED Qualifiers: Hypothyroidism type: unspecified Qualified Code(s): E03.9 - Hypothyroidism , unspecified (5) Perforation of colon as colonoscopy complication Code(s): K63.1 - PERFORATION OF INTESTINE (NONTRAUMATIC); K91.71 - ACCIDENTAL PNCTR & LAC OF A DGSTV SYS ORG DUR DGSTV SYS PROC (6) Status post Sam procedure Code(s): Z93.3 - COLOSTOMY STATUS (7) Acute on chronic respiratory failure with hypoxia and hypercapnia Code(s): J96.21 - ACUTE AND CHRONIC RESPIRATORY FAILURE WITH HYPOXIA; J96.22 - ACUTE AND CHRONIC RESPIRATORY FAILURE WITH HYPERCAPNIA Assessment/Plan cta of chest: no CT evidence of pulmonary embolism, pulmonary vascular congestion with cardiomegaly, bilateral pleural effusion Head CT (June 14 2018): no acute pathology echo LV WNL pleural effusion severe TR RVSP elevated PVR 1. Sigmoid colonic perforation, fecal peritonitis, sepsis post Lopez procedure 2. Post septic shock 3. Acute hypoxic and hypercapneic respiratory failure 4. Acute on chronic class II-III NYHA classification LV failure related to diastolic LV dysfunction 5. CAD angina pectoris 6. Severe TR with pulmonary HTN 7. Pleural effusions post right thoracentesis (transudate) 8. Persistent atrial fibrillation with periods of rapid ventricular response [id number] score of 5, now on Lovenox bid 9. Hypothyroidism 10. Carotid stenosis 11. Anemia 12. E. Coli UTI 13. Hyponatremia improved 14. Improved left Atelectasis PLAN: 1. HF NC O2 for WOB, antibiotics and antifungal course per the primary team/ID 2. Metoprolol 50 tid as tolerated - uptitrate 3. IV Lasix drip with monitor diuretic response, renal fxn and electrolytes 4. Considering the above noted [id number] score of 5 A/C agree with Lovenox 70 bid with transition to NOAC if no further procedures anticipated 5. Enteral feeds, DVT/GI prophylaxis and supportive care 6. Surgery follow-up and drain d/johnny
[2018-07-03 15:21] LABS: ALBUMIN 1.8 g/dl (3.4-5.0)
[2018-07-03] MEDS: ALBUTEROL SO4 2.5/IPRATROPIUM 0.5 INH SOL 3 ML VIAL.NEB. NEB PRN (15:45)
--- NOTE | 2018-07-03 19:59 | PN ---
Physical Exam: SUBJECTIVE: Patient seen and examined this am and evening in icu. Remains extubated, on high flow O2, son and [id number] at bedside. Pt to be transferred to [facility] tentatively tomorrow. OBJECTIVE: Vital Signs Period Temp Pulse Resp BP Sys/De La O Pulse Ox Last 24 Hr 99.1 F-99.8 F 95-118 14-22 87-134/37-92 93-99 GENERAL: Awake, extubated, NG tube in place. HEAD: NC/AT NECK: Trachea midline. No JVD. LUNGS: BS dec at bases. HEART: Irregular. ABDOMEN: Soft. Colostomy present. EXTREMITIES: onycholysis, upper extremities swollen, bandages on feet b/l to prevent pressure ulcers. NEUROLOGICAL: N/A SKIN: dry, pallor. Bandages on feet b/l to prevent pressure ulcers. Laboratory Results - last 24 hr 07/02/18 07/02/18 07/03/18 17:14 21:05 05:15 WBC RBC Hgb Hct MCV MCH MCHC RDW Plt Count MPV Absolute Neuts (auto) Neutrophils % Lymphocytes % Monocytes % Eosinophils % Basophils % Nucleated RBC % Sodium 139 Potassium 2.9 L* Chloride 100 Carbon Dioxide 31 Anion Gap 8 BUN 19 H Creatinine 0.4 L Creat Clearance w eGFR > 60 POC Glucometer 179.61345 192.79809 Random Glucose 183 H Calcium 7.1 L Phosphorus 2.1 L Magnesium 1.7 L Total Bilirubin 1.3 H AST 18 ALT 9 L Alkaline Phosphatase 90 Total Protein 4.4 L Albumin 2.0 L 07/03/18 07/03/18 07/03/18 05:15 06:08 12:11 WBC 11.4 H RBC 3.65 Hgb 9.0 L Hct 27.2 L MCV 74.5 L MCH 24.6 L MCHC 33.0 RDW 31.9 H Plt Count 383 MPV 8.6 Absolute Neuts (auto) 9.6 Neutrophils % 84.4 H Lymphocytes % 3.3 L D Monocytes % 10.6 H Eosinophils % 1.2 D Basophils % 0.5 Nucleated RBC % 0 Sodium Potassium Chloride Carbon Dioxide Anion Gap BUN Creatinine Creat Clearance w eGFR POC Glucometer 223.95866 231.46455 Random Glucose Calcium Phosphorus Magnesium Total Bilirubin AST ALT Alkaline Phosphatase Total Protein Albumin 07/03/18 07/03/18 07/03/18 13:37 14:30 17:05 WBC RBC Hgb Hct MCV MCH MCHC RDW Plt Count MPV Absolute Neuts (auto) Neutrophils % Lymphocytes % Monocytes % Eosinophils % Basophils % Nucleated RBC % Sodium 142 Potassium 3.2 L Chloride 103 Carbon Dioxide 33 H Anion Gap 6 L BUN 20 H Creatinine 0.4 L Creat Clearance w eGFR > 60 POC Glucometer [phone] Random Glucose 184 H Calcium 6.9 L* Phosphorus 2.1 L Magnesium 2.1 Total Bilirubin AST ALT Alkaline Phosphatase Total Protein Albumin 1.8 L Cancelled Active Medications Generic Name Dose Route Start Last Admin Trade Name Freq PRN Reason Stop Dose Admin Acetaminophen 1,000 mg 07/02/18 20:17 07/03/18 12:54 Ofirmev Injection - IVPB 1,000 mg Q6H PRN Administration PAIN Albuterol/Ipratropium 1 amp 06/22/18 17:53 07/03/18 15:45 Duoneb - NEB 1 amp Q6H PRN Administration SHORTNESS OF BREATH Amino Acids 30 ml 07/01/18 17:30 07/03/18 17:08 Prosource No Carb Liquid Pkt PO 30 ml BID@0800,1730 [facility] Administration Enoxaparin Sodium 70 mg 06/30/18 11:30 07/03/18 09:32 Lovenox - SQ 70 mg BID [facility] Administration Metronidazole 500 mg in 100 mls @ 100 mls/hr 06/22/18 21:00 07/03/18 15:44 Flagyl 500mg Premixed Ivpb - IVPB 100 mls/hr Q6H-IV [facility] Administration Piperacillin Sod/Tazobactam 50 mls @ 100 mls/hr 06/23/18 02:00 07/03/18 17:08 Sod 3.375 gm/ Dextrose IVPB 100 mls/hr Q8H-IV [facility] Administration Protocol Caspofungin 50 mg/ Sodium 250 mls @ 250 mls/hr 06/26/18 10:00 07/03/18 10:14 Chloride IVPB 250 mls/hr DAILY [facility] Administration Furosemide 100 mg/ Dextrose 100 mls @ 2.5 mls/hr 07/03/18 18:51 IVPB TITR [facility] Protocol 2.5 MG/HR Insulin Aspart 1 vial 06/22/18 22:00 07/03/18 17:06 Novolog Vial Sliding Scale - SQ 2 units ACHS [facility] Administration Protocol Levothyroxine Sodium 44 mcg 06/23/18 07:00 07/03/18 06:31 Synthroid Injection - IVPUSH 44 mcg 0700 [facility] Administration Metoprolol Tartrate 50 mg 07/02/18 14:00 07/03/18 13:06 Lopressor - NGT 50 mg TID [facility] Administration Ondansetron HCl 4 mg 07/03/18 13:44 Zofran Injection IVPUSH Q8H PRN NAUSEA Pantoprazole Sodium 40 mg 06/23/18 10:00 07/03/18 09:33 Protonix Iv IVPUSH 40 mg DAILY [facility] Administration Potassium Chloride 40 meq 07/03/18 10:00 07/03/18 09:33 Potassium Chloride Oral Liquid GT 40 meq BID [facility] Administration ASSESSMENT/PLAN: Ms. Singh is an 87 y/o lady with a past medical history of A. fib (no AC), CVA , breast cancer, hypothyroidism, iron deficiency anemia, and DM. Pt has a h/o occult GI bleeding requiring blood transfusions. Pt has had a recent development of severe microcytic anemia and heme + stool. Has been on aspirin chronically for A fib. Has not had any specific GI complaints and has refused GI workups in past. Pt was referred to [facility] for a colonoscopy to r/o any GI bleed. Pt developed a perforation of her rectosigmoid colon s/p colonoscopy. Dr Lora, General Surgeon, was notified and pt was transfered from [facility] to [facility]. An exploratory laparotomy was performed where surgical resection of the rectosigmoid colon with closure of the anorectal stump and formation of an end colostomy Neuro: Alert, nonverbal. [facility]- POD #11 Lopez's Procedure-->Sigmoid colonic perforation s/p colonoscopy , septic shock, fecal peritonitis -Colonic perforation, fecal peritonitis -S/P Lopez procedure POD #11 -Continue empiric zosyn/ flagyl -Caspofungin -ICU monitoring -Protonix 40 mg po daily -Enteral Feeds PULM-Acute hypercapneic and hypoxic respiratory failure -high Flow O2 -Duoneb 1 AMP NEB Q6H -Chest physiotherapy Chest XRAY 07/03/18- Moderate B/L pleural effusions w/ left retrocardiac atelectasis. -Lasix 2.5 mls/hr gtt. Decreased from 5 mls/hr as pt hypotensive and MAP decreased. AFIB: Lopressor 50 MG NGT TID per cardiology FEN No Fluids Monitor Electrolytes Enterel Feeds Osmolite DVT ppx: Lovenox 70 mg sq bid Dispo- To be transferred to [facility]. Visit type - Emergency Visit Emergency Visit: Yes ED Registration Date: 06/12/18 Care time: The patient presented to the Emergency Department on the above date and was hospitalized for further evaluation of their emergent condition. - New Patient This patient is new to me today: No - Critical Care Critical Care patient: Yes Total Critical Care Time (in minutes): 35 Critical Care Statement: The care of this patient involved high complexity decision making to prevent further life threatening deterioration of the patient 's condition and/or to evaluate & treat vital organ system(s) failure or risk of failure.
[2018-07-03] MEDS ORDERED: HEMOQUE TEST 1 EACH EACH ONE ×4 (20:44→21:55)
[2018-07-03] MEDS ORDERED: PT OWN MED DRAWER 7, Y5N ONE (21:02)
[2018-07-04] MEDS: PIPERACILLIN/TAZOB 3.375 GM 3.375 GM in DEXTROSE 5%-WATER - 50 ML IVPB SCH ×3 (02:16→17:59)
[2018-07-04] MEDS: ACETAMINOPHEN 325 MG TABLET (FP) PO PRN ×2 (04:00→14:55)
[2018-07-04] MEDS: METOPROLOL TARTRATE 50 MG TABLET (FP) NGT SCH ×3 (05:53→21:15)
[2018-07-04] MEDS: INSULIN SLIDING SCALE (NOVOLOG) 1 VIAL SQ SCH ×4 (06:12→21:24)
[2018-07-04] MEDS: LEVOTHYROXINE SODIUM 100 MCG VIAL IVPUSH SCH (06:12)
[2018-07-04 06:21] LABS: HEMATOCRIT 26.8 % (32.4-45.2); HEMOGLOBIN 8.8 GM/dL (10.7-15.3); MCH 24.8 pg (25.7-33.7); MEAN CELL VOLUME 75.3 fl (80-96); PLATELET COUNT 383 K/MM3 (134-434); RBC 3.55 M/mm3 (3.60-5.2); RDW 32.1 % (11.6-15.6); WHITE BLOOD COUNT 11.3 K/mm3 (4.0-10.0)
[2018-07-04 06:46] LABS: CHLORIDE 103 mmol/L (98-107); SODIUM 141 mmol/L (136-145)
[2018-07-04 06:56] LABS: ALBUMIN 1.7 g/dl (3.4-5.0); ALK PHOS 119 U/L (45-117); ANION GAP 9 (8-16); BILIRUBIN,TOTAL 1.1 mg/dL (0.2-1.0); BLOOD UREA NITROGEN 28 mg/dL (7-18); CALCIUM 7.4 mg/dL (8.5-10.1); CO2 29 mmol/L (21-32); CREATININE 0.6 mg/dL (0.55-1.02); GLUCOSE,RANDOM 249 mg/dL (74-106); PHOSPHOROUS 2.9 mg/dL (2.5-4.9); SGPT/ALT 9 U/L (12-78); TOT PROT 4.3 g/dl (6.4-8.2)
[2018-07-04 07:03] LABS: MAGNESIUM 2.1 mg/dL (1.8-2.4); POTASSIUM 4.2 mmol/L (3.5-5.1); SGOT/AST 20 U/L (15-37)
--- NOTE | 2018-07-04 07:14 | PN ---
Progress Note (short form) - Note Progress Note: Chief Complaint: Events noted, notes reviewed, remains extubated in no distress , off of pressors, atrial fibrillation persists rate controlled History of Present Illness: Seen and examined in the ICU. Events noted, notes reviewed, remains extubated in no distress, off of pressors, atrial fibrillation persists rate controlled On Lasix drip, chest x-ray from this AM noted According to staff patient to be transferred to a hospital in [place] Patient is post recto-sigmoid perforation, post Lopez's procedure with fecal peritonitis Chest CTA: no CT evidence of pulmonary embolism, pulmonary vascular congestion with cardiomegaly, bilateral pleural effusion Echocardiography revealed normal LV size and function, trace pericardial effusion, pleural effusion, mild to moderate MR, severe TR, RVSP 30-40 mmHg - Current Medication List Current Medications: Current Medications Acetaminophen (Tylenol -) 325 mg PO Q4H PRN PRN Reason: PAIN LEVEL 6-10 Last Admin: 07/04/18 04:00 Dose: 325 mg Albuterol/Ipratropium (Duoneb -) 1 amp NEB Q6H PRN PRN Reason: SHORTNESS OF BREATH Last Admin: 07/03/18 15:45 Dose: 1 amp Amino Acids (Prosource No Carb Liquid Pkt) 30 ml PO BID@0800,1730 [facility] Last Admin: 07/03/18 17:08 Dose: 30 ml Enoxaparin Sodium (Lovenox -) 70 mg SQ BID [facility] Last Admin: 07/03/18 21:16 Dose: 70 mg Metronidazole (Flagyl 500mg Premixed Ivpb -) 500 mg in 100 mls @ 100 mls/hr IVPB Q6H-IV [facility] Last Admin: 07/04/18 03:17 Dose: 100 mls/hr Piperacillin Sod/Tazobactam (Sod 3.375 gm/ Dextrose) 50 mls @ 100 mls/hr IVPB Q8H-IV [facility]; Protocol Last Admin: 07/04/18 02:16 Dose: 100 mls/hr Caspofungin 50 mg/ Sodium (Chloride) 250 mls @ 250 mls/hr IVPB DAILY [facility] Last Admin: 07/03/18 10:14 Dose: 250 mls/hr Furosemide 100 mg/ Dextrose 100 mls @ 2.5 mls/hr IVPB TITR [facility]; Protocol Last Admin: 07/03/18 21:18 Dose: 2.5 mg/hr, 2.5 mls/hr Insulin Aspart (Novolog Vial Sliding Scale -) 1 vial SQ ACHS [facility]; Protocol Last Admin: 07/04/18 06:12 Dose: 8 units Levothyroxine Sodium (Synthroid Injection -) 44 mcg IVPUSH 0700 [facility] Last Admin: 07/04/18 06:12 Dose: 44 mcg Metoprolol Tartrate (Lopressor -) 50 mg NGT TID [facility] Last Admin: 07/04/18 05:53 Dose: 50 mg Ondansetron HCl (Zofran Injection) 4 mg IVPUSH Q8H PRN PRN Reason: NAUSEA Pantoprazole Sodium (Protonix Iv) 40 mg IVPUSH DAILY [facility] Last Admin: 07/03/18 09:33 Dose: 40 mg Potassium Chloride (Potassium Chloride Oral Liquid) 40 meq GT BID [facility] Last Admin: 07/03/18 21:18 Dose: 40 meq Review of Systems: Unable to obtain - Objective Vital Signs: Last Vital Signs Temp Pulse Resp BP Pulse Ox 100.5 F H 121 H 17 101/62 95 07/04/18 04:00 07/04/18 06:00 07/04/18 06:00 07/04/18 06:00 07/04/18 05:58 Intake & Output 07/01/18 07/02/18 07/03/18 07/04/18 23:59 23:59 23:59 23:59 Intake Total 946 1107 2012 517.5 Output Total 1370 4360 2000 300 Balance -424 3253 12 217.5 Weight 167 lb 169 lb 142 lb 6 oz 142 lb 3 oz Neck: Supple Negative JVD No Bruit Cardiovascular: S1 S2 Irregularly Irregular Respiratory: Bilateral Scattered Rhonchi Gastrointestinal: Soft Normal Bowel Sounds Ext: No Edema Labs: CBC, BMP 07/04/18 05:30 07/04/18 05:30 Assessment/Plan ASSESSMENT: 1. Colonic perforation, fecal peritonitis, post Lopez procedure post sepsis syndrome 2. Acute hypercapneic respiratory failure referable to 3. Acute on chronic class II-III NYHA classification LV failure related to diastolic LV dysfunction, persistent pulmonary vascular congestion 4. CAD angina pectoris 5. Severe TR with pulmonary HTN 6. Pleural effusions post right thoracentesis (transudate) 7. Persistent atrial fibrillation with periods of rapid ventricular response [id number] score of 5, not on A/C as patient has declined in past 8. Hypothyroidism 9. Carotid stenosis 10. Anemia PLAN: 1. Antibiotics as per the primary team/ID 2. Continue Lopressor hemodynamics permitting 3. Continue Lasix drip with close monitoring of renal function 4. May need the addition of Aldactone with caution considering the above noted chest x-ray finding 5. As outlined in prior notes considering the above noted [id number] score of 5 A/C recommended unless it is absolutely contraindicated 6. As outlined above plan to transfer [facility], family request Taty Rodriguez MD
--- NOTE | 2018-07-04 07:24 | PN ---
Progress Note (short form) - Note Progress Note: POD #12 Alert. More aware of her surroundings today compared to yesterday. Tries to engage more but still non-verbal. Responds to yes/no questions by nodding her head. Mayra dickerson dc'd yesterday. Tolerating Osmolite enteral feeds. On emperic Zosyn and FLagyl. Denies n/v/c, CP or SOB. Last Vital Signs Temp Pulse Resp BP Pulse Ox 100.5 F H 121 H 17 101/62 95 07/04/18 04:00 07/04/18 06:00 07/04/18 06:00 07/04/18 06:00 07/04/18 05:58 CBC, BMP 07/04/18 05:30 07/04/18 05:30 CXR 18 - moderate bilat pleural effusions w/ left retrocardiac atelectasis. PE Gen: alert. nad. Abd: midline incision open with few intermittent cassie for umbilical re- approximation. Minimal granulation tissue. Clean. Deep fascia intact. Ostomy viable. Extrem: anasarca : kapoor to gravity. SCDs bilat Problem List - Problems (1) Status post Sam procedure Assessment/Plan: POD #12 s/p ex-lap --> Sam's Procedure secondary to sigmoid perforation during colonoscopy (work-up for anemia), resulting in fecal peritonitis and septic shock. - Cont empiric Zosyn & Flagyl - Cont ICU monitoring - Protonix 40 mg po daily - Enteral Feeds - High Flow O2 - Chest physiotherapy - Cont Lasix gtt with close monitoring of renal function - Daily wound care orered - Offload all pressure sensitive areas - Frequent repositioning - Per discussion with ICU resident and Medical attendings notes, family has requested that the patient be transferred to [facility] ([place]) for continued care. Code(s): Z93.3 - COLOSTOMY STATUS
--- NOTE | 2018-07-04 08:39 | PN ---
Physical Exam: SUBJECTIVE: Patient seen and examined at bedside. OBJECTIVE: Vital Signs Period Temp Pulse Resp BP Sys/De La O Pulse Ox Last 24 Hr 99.1 F-100.5 F 95-122 14-22 87-120/37-84 94-98 GENERAL: The patient is awake, nods head, does not follow commands ENT: NGT LUNGS: Scattered rhonchi HEART: Irregular, S1, S2 ABDOMEN: Soft, midline incision intact, liquid stool in colostomy; kapoor with dark urine UPPER & LOWER EXTREMITIES: edematous, weeping skin Laboratory Results - last 24 hr 07/03/18 07/03/18 07/03/18 06:08 12:11 13:37 WBC RBC Hgb Hct MCV MCH MCHC RDW Plt Count MPV Sodium 142 Potassium 3.2 L Chloride 103 Carbon Dioxide 33 H Anion Gap 6 L BUN 20 H Creatinine 0.4 L Creat Clearance w eGFR > 60 POC Glucometer 223.16591 231.12846 Random Glucose 184 H Calcium 6.9 L* Phosphorus 2.1 L Magnesium 2.1 Total Bilirubin AST ALT Alkaline Phosphatase Total Protein Albumin 1.8 L 07/03/18 07/03/18 07/03/18 14:30 17:05 21:58 WBC RBC Hgb Hct MCV MCH MCHC RDW Plt Count MPV Sodium Potassium Chloride Carbon Dioxide Anion Gap BUN Creatinine Creat Clearance w eGFR POC Glucometer 180.85576 244.12188 Random Glucose Calcium Phosphorus Magnesium Total Bilirubin AST ALT Alkaline Phosphatase Total Protein Albumin Cancelled 07/04/18 07/04/18 05:30 05:30 WBC 11.3 H RBC 3.55 L Hgb 8.8 L Hct 26.8 L MCV 75.3 L MCH 24.8 L MCHC 33.0 RDW 32.1 H Plt Count 383 MPV 9.0 Sodium 141 Potassium 4.2 Chloride 103 Carbon Dioxide 29 Anion Gap 9 BUN 28 H Creatinine 0.6 Creat Clearance w eGFR > 60 POC Glucometer Random Glucose 249 H Calcium 7.4 L Phosphorus 2.9 Magnesium 2.1 Total Bilirubin 1.1 H AST 20 ALT 9 L Alkaline Phosphatase 119 H D Total Protein 4.3 L Albumin 1.7 L Active Medications Generic Name Dose Route Start Last Admin Trade Name Freq PRN Reason Stop Dose Admin Acetaminophen 325 mg 07/03/18 21:00 07/04/18 04:00 Tylenol - PO 325 mg Q4H PRN Administration PAIN LEVEL 6-10 Albuterol/Ipratropium 1 amp 06/22/18 17:53 07/03/18 15:45 Duoneb - NEB 1 amp Q6H PRN Administration SHORTNESS OF BREATH Amino Acids 30 ml 07/01/18 17:30 07/03/18 17:08 Prosource No Carb Liquid Pkt PO 30 ml BID@0800,1730 [facility] Administration Enoxaparin Sodium 70 mg 06/30/18 11:30 07/03/18 21:16 Lovenox - SQ 70 mg BID [facility] Administration Metronidazole 500 mg in 100 mls @ 100 mls/hr 06/22/18 21:00 07/04/18 03:17 Flagyl 500mg Premixed Ivpb - IVPB 100 mls/hr Q6H-IV [facility] Administration Piperacillin Sod/Tazobactam 50 mls @ 100 mls/hr 06/23/18 02:00 07/04/18 02:16 Sod 3.375 gm/ Dextrose IVPB 100 mls/hr Q8H-IV [facility] Administration Protocol Caspofungin 50 mg/ Sodium 250 mls @ 250 mls/hr 06/26/18 10:00 07/03/18 10:14 Chloride IVPB 250 mls/hr DAILY [facility] Administration Furosemide 100 mg/ Dextrose 100 mls @ 2.5 mls/hr 07/03/18 18:51 07/03/18 21: 18 IVPB 2.5 mg/hr TITR [facility] 2.5 mls/hr Administration Protocol 2.5 MG/HR Insulin Aspart 1 vial 06/22/18 22:00 07/04/18 06:12 Novolog Vial Sliding Scale - SQ 8 units ACHS [facility] Administration Protocol Levothyroxine Sodium 44 mcg 06/23/18 07:00 07/04/18 06:12 Synthroid Injection - IVPUSH 44 mcg 0700 [facility] Administration Metoprolol Tartrate 50 mg 07/02/18 14:00 07/04/18 05:53 Lopressor - NGT 50 mg TID [facility] Administration Ondansetron HCl 4 mg 07/03/18 13:44 Zofran Injection IVPUSH Q8H PRN NAUSEA Pantoprazole Sodium 40 mg 06/23/18 10:00 07/03/18 09:33 Protonix Iv IVPUSH 40 mg DAILY [facility] Administration Potassium Chloride 40 meq 08/13/18 10:00 07/03/18 21:18 Potassium Chloride Oral Liquid GT 40 meq BID [facility] Administration ASSESSMENT/PLAN: 87 year-old female with a PMH significant for CVA, afib not on anti-coagulation , diastolic heart failure, anemia, diet-controlled diabetes, breast cancer, and hypothyroidism. Admitted for HF exacerbation, anemia, and UTI. Hospital course complicated by sigmoid colonic perforation during colonoscopy, s/p Lopez procedure. Developed septic shock secondary to fecal peritonitis which has improved, now off pressors. Sigmoid colonic perforation, fecal peritonitis s/p Lopez procedure Septic shock, resolved --continue metronidazole, Zosyn, caspofungin Acute hypercapnic and hypoxic respiratory failure --extubated 07/02 --on high flow O2 Acute on chronic diastolic heart failure Anisarca Bilateral pleural effusions --Echo: LV normal; RV not well-visualized; mild to moderate MR; severe TR; pHTN; trace PI; trivial pericardial effusion; pleural effusion present --volume overloaded, bilateral pleural effusions persist on today's CXR, on Lasix drip --fluid goal negative 0.5 to 1L daily Atrial fibrillation --rate to 120s --continue metoprolol TID --full dose lovenox Bilateral pneumonia --06/16 CXR: fluid on right is improved but left base has become dense; consider repeat CT chest --antibiotics as above Carotid artery stenosis --significant bilateral disease --not on ASA or statin Hypothyroidism --continue levothyroxine NIDDM --Novolog sliding scale coverage E. coli UTI --antibiotics as above DVT prophylaxis: on full dose lovenox Dispo: continues to require ICU level care. Patient's family wants to transfer patient to [facility] but may not be approved by insurance as all needs are being met. Visit type - Emergency Visit Emergency Visit: Yes ED Registration Date: 06/12/18 Care time: The patient presented to the Emergency Department on the above date and was hospitalized for further evaluation of their emergent condition. - New Patient This patient is new to me today: No - Critical Care Critical Care patient: Yes Total Critical Care Time (in minutes): 45 Critical Care Statement: The care of this patient involved high complexity decision making to prevent further life threatening deterioration of the patient 's condition and/or to evaluate & treat vital organ system(s) failure or risk of failure.
--- NOTE | 2018-07-04 10:03 | CONSULT ---
Admitting History and Physical - Primary Care Physician PCP: Marely Saunders - Admission History of Present Illness: Sigmoid Colon Rupture Fecal Peritonitis Septic Shock Acute Hypoxic and Hypercapneic Respiratory Failure Acute on Chronic Diastolic Heart Failure Pulmonary HTN CAD Atrial Fibrillation with RVR Hyponatremia Hypothyroidism UTI Atelectasis Intubated 06/22-Extubated 07/02. NGT in place. Per MD notes- Alert. More aware of her surroundings today compared to yesterday. Tries to engage more but still non-verbal. Responds to yes/no questions by nodding her head. NGT/Hi-flow o2 in place History Source: Medical Record Limitations to Obtaining History: Clinical Condition - Past Medical History Cardiovascular: Yes: AFIB, CHF, HTN Endocrine: Yes: Diabetes Mellitus, Hypothyroidism - Advance Directives Advance Directives: Yes: Living Will, Health Care Proxy - Smoking History Smoking history: Former smoker Have you smoked in the past 12 months: No Aproximately how many cigarettes per day: 0 If you are a former smoker, when did you quit?: 40 YEARS AGO - Alcohol/Substance Use Hx Alcohol Use: No History - Admission Reason For Visit: PLEURAL EFFUSION/RESPIRATORY DISTRESS - Diagnostics X-ray: Report Reviewed CT Scan: Report Reviewed (CT 06/14/18) - General Mental Status: Awake and Alert, Able to Follow Commands (delayed response. 1 step symple commands. Intermittent.), Intermittently Confused (did not respong Y /N to orientation questions.), Flat Affect Attention: Distractible, Mild Impairment - Hearing Hearing: Normal Speech Evaluation - Communication Primary Language: MOLDOVAN Oral Expression Ability: Yes: Severe Impairment (Rare initiation of verbalizations. Unintelligible. Fair vocal quality. Shakes head YES when asked if she has trouble talking) - Speech Production Able to Make Needs Known: Yes: Severely Impaired Intelligibility: Yes: Moderately Impaired, Severely Impaired - Speech Characteristics Voice Loudness: Normal Voice Pitch: Yes: Normal Voice Phonatory-based Quality: Yes: Dysphonia (mild) Speech Pattern: Impaired Speech Clarity: < 25% Articulation: Yes: Imprecise - Language/Auditory Comprehension Observation: Able to respond to yes/no queries: Yes (delayed response-. Intermittent.), Comprehends Conversational Speech: Yes (maybe. simple.), Benefits from Slow Speech: Yes, Benefits from Repetiton: Yes, Benefits from Increased Volume of Speech: Yes - Language/Verbal Expression Able to Respond to Simple Queries: Yes: Severely Impaired Able to Communicate Wants and Needs: Yes: Severely Impaired Functional Communication Status: Yes: Severely Impaired - Swallow Evaluation/Bedside Assessment Current Nutritional Intake: NG Tube (feedings.) Oral Secretions: Yes: WFL Jaw Position: Open at Rest Pucker Lips: Weak (slight), Bilabial Closure (weak. incomplete.) Smile: Weak (slight) Lingual Movement: Apraxic, Reduced Protrusion Lingual Speed of Movement: Reduced Lingual Movement Strgth Against Opposition: Reduced Laryngeal Movement: Unable to Palpate Recommendations - Speech Evaluation, Impression/Plan Impression: Rare verbalization, fairly good voicing, imprecise articulation, unintelligible. Y/N responses not always initiated/inconsistent. Follows some 1 step directives, delayed. PO trial not attempted. Open mouth posture. Swallow presently not functional with aspiration risk. Pt receiving NGT feedings. - Disposition Discharge to: To be Determined - Dysphagia Impressions/Plan Swallowing Skills: Impaired Dysphagia Impressions: Risk of Aspiration, Ongoing Evaluation *Silent aspiration: cannot be R/O at bedside Recommendations: Other (Continue NGT feedings for now.) - Recommendations Diet Consistency: NPO Liquids: NPO
[2018-07-04] MEDS ORDERED: DEXTROSE 5%-WATER - 50 ML IVPB ONE ×2 (10:10→17:01)
[2018-07-04] MEDS ORDERED: PIPERACILLIN/TAZOBACTAM 3.375 GM VIAL IVPB ONE ×2 (10:10→17:01)
[2018-07-04] MEDS: AMINO ACIDS/PROTEIN HYDROLYS 30 ML LIQUID.PKT PO SCH ×2 (10:29→17:59)
[2018-07-04] MEDS: CASPOFUNGIN ACETATE 50 MG in SODIUM CHLORIDE 250 ML IVPB SCH (10:30)
[2018-07-04] MEDS: POTASSIUM CHLORIDE ORAL LIQUID 20 MEQ/15 ML GT SCH ×2 (10:40→21:14)
[2018-07-04] MEDS: ENOXAPARIN NA (PORCINE) 80 MG/0.8 ML DISP.SYRIN SQ SCH ×2 (10:41→21:13)
[2018-07-04] MEDS: PANTOPRAZOLE SODIUM 40 MG VIAL IVPUSH SCH (10:42)
[2018-07-04] MEDS: ALBUTEROL SO4 2.5/IPRATROPIUM 0.5 INH SOL 3 ML VIAL.NEB. NEB PRN (11:08)
--- NOTE | 2018-07-04 13:04 | PN ---
Teaching Attending Note Name of Resident: Alfredo Rodriguez ATTENDING PHYSICIAN STATEMENT I saw and evaluated the patient. I reviewed the resident's note and discussed the case with the resident. I agree with the resident's findings and plan as documented. SUBJECTIVE: Patient seen and examined in the ICU. Remains off pressors. Mildly tachypneic on HF NC O2. HFNC O2 could not be weaned yesterday due to hypoxemia. Awake and interactive. Appears very weak. OBJECTIVE: Intake & Output 07/01/18 07/02/18 07/03/18 07/04/18 23:59 23:59 23:59 23:59 Intake Total 946 1107 2011 517.5 Output Total 1370 4360 1999 300 Balance -424 -3253 12 217.5 Weight 167 lb 169 lb 142 lb 6 oz 142 lb 3 oz Last Vital Signs Temp Pulse Resp BP Pulse Ox 100.5 F H 103 H 17 101/62 94 L 07/04/18 04:00 07/04/18 07:59 07/04/18 06:00 07/04/18 06:00 07/04/18 11:08 Active Medications Acetaminophen (Tylenol -) 325 mg PO Q4H PRN PRN Reason: PAIN LEVEL 6-10 Last Admin: 07/04/18 04:00 Dose: 325 mg Albuterol/Ipratropium (Duoneb -) 1 amp NEB Q6H PRN PRN Reason: SHORTNESS OF BREATH Last Admin: 07/04/18 11:08 Dose: 1 amp Amino Acids (Prosource No Carb Liquid Pkt) 30 ml PO BID@0800,1730 [facility] Last Admin: 07/04/18 10:29 Dose: 30 ml Enoxaparin Sodium (Lovenox -) 70 mg SQ BID [facility] Last Admin: 07/04/18 10:41 Dose: 70 mg Metronidazole (Flagyl 500mg Premixed Ivpb -) 500 mg in 100 mls @ 100 mls/hr IVPB Q6H-IV REED Last Admin: 07/04/18 10:42 Dose: 100 mls/hr Piperacillin Sod/Tazobactam (Sod 3.375 gm/ Dextrose) 50 mls @ 100 mls/hr IVPB Q8H-IV REED; Protocol Last Admin: 07/04/18 10:31 Dose: 100 mls/hr Caspofungin 50 mg/ Sodium (Chloride) 250 mls @ 250 mls/hr IVPB DAILY [facility] Last Admin: 07/04/18 10:30 Dose: 250 mls/hr Furosemide 100 mg/ Dextrose 100 mls @ 2.5 mls/hr IVPB TITR [facility]; Protocol Last Admin: 07/03/18 21:18 Dose: 2.5 mg/hr, 2.5 mls/hr Insulin Aspart (Novolog Vial Sliding Scale -) 1 vial SQ ACHS [facility]; Protocol Last Admin: 07/04/18 10:55 Dose: 6 units Levothyroxine Sodium (Synthroid Injection -) 44 mcg IVPUSH 0700 [facility] Last Admin: 07/04/18 06:12 Dose: 44 mcg Metoprolol Tartrate (Lopressor -) 50 mg NGT TID [facility] Last Admin: 07/04/18 05:53 Dose: 50 mg Ondansetron HCl (Zofran Injection) 4 mg IVPUSH Q8H PRN PRN Reason: NAUSEA Pantoprazole Sodium (Protonix Iv) 40 mg IVPUSH DAILY [facility] Last Admin: 07/04/18 10:42 Dose: 40 mg Potassium Chloride (Potassium Chloride Oral Liquid) 40 meq GT BID [facility] Last Admin: 07/04/18 10:40 Dose: 40 meq GEN: Elderly woman, mildly tachypneic on HF NC O2 PULM: Bilateral scattered rhonchi, diminished at the bases CV: nml S1 S2, irreg/irreg, tachy ABD: soft, midline incision intact, (+) liquid stool in colostomy EXT: + Pulses, (+) edema SKIN: weeping Laboratory Results - last 24 hr 07/03/18 07/03/18 07/03/18 13:37 14:30 17:05 WBC RBC Hgb Hct MCV MCH MCHC RDW Plt Count MPV Sodium 142 Potassium 3.2 L Chloride 103 Carbon Dioxide 33 H Anion Gap 6 L BUN 20 H Creatinine 0.4 L Creat Clearance w eGFR > 60 POC Glucometer 180.16324 Random Glucose 184 H Calcium 6.9 L* Phosphorus 2.1 L Magnesium 2.1 Total Bilirubin AST ALT Alkaline Phosphatase Total Protein Albumin 1.8 L Cancelled 07/03/18 07/04/18 07/04/18 21:58 05:30 05:30 WBC 11.3 H RBC 3.55 L Hgb 8.8 L Hct 26.8 L MCV 75.3 L MCH 24.8 L MCHC 33.0 RDW 32.1 H Plt Count 383 MPV 9.0 Sodium 141 Potassium 4.2 Chloride 103 Carbon Dioxide 29 Anion Gap 9 BUN 28 H Creatinine 0.6 Creat Clearance w eGFR > 60 POC Glucometer [phone] Random Glucose 249 H Calcium 7.4 L Phosphorus 2.9 Magnesium 2.1 Total Bilirubin 1.1 H AST 20 ALT 9 L Alkaline Phosphatase 119 H D Total Protein 4.3 L Albumin 1.7 L 07/04/18 07/04/18 05:39 10:54 WBC RBC Hgb Hct MCV MCH MCHC RDW Plt Count MPV Sodium Potassium Chloride Carbon Dioxide Anion Gap BUN Creatinine Creat Clearance w eGFR POC Glucometer 309.85165 281.40982 Random Glucose Calcium Phosphorus Magnesium Total Bilirubin AST ALT Alkaline Phosphatase Total Protein Albumin ASSESSMENT AND PLAN: Sigmoid Colon Rupture Fecal Peritonitis Septic Shock Acute Hypoxic and Hypercapneic Respiratory Failure Acute on Chronic Diastolic Heart Failure Pulmonary HTN CAD Atrial Fibrillation with RVR Hyponatremia Hypothyroidism UTI Atelectasis HF NC O2 for WOB BD TX ABX per ID Diuresis as tolerated Replete electrolytes as needed Rate control AC Monitor ostomy output Enteral feeds as tolerated DVT/GI prophylaxis Wound care per surgery Dr Staton Critical care time spent in reviewing chart, evaluating patient and formulating plan - 36 minutes.
[2018-07-04] MEDS ORDERED: ACETAMINOPHEN 325 MG TABLET (FP) PO PRN (16:53)
--- NOTE | 2018-07-04 17:28 | PN ---
Physical Exam: SUBJECTIVE: Patient seen and examined this am and afternoon in icu. Pt awake, partially responsive. Remains off pressors. Pt spiked a fever of 101.4 at 4 pm today. OBJECTIVE: Vital Signs Period Temp Pulse Resp BP Sys/De La O Pulse Ox Last 24 Hr 100.1 F-101.4 F 95-122 16-22 87-110/37-62 93-97 GENERAL: Awake, NG tube in place. HEAD: NC/AT NECK: Trachea midline. No JVD. LUNGS: BS dec at bases. HEART: Irregular, rate controlled. ABDOMEN: Soft. Colostomy present. EXTREMITIES: onycholysis, upper extremities swollen, bandages on feet b/l to prevent pressure ulcers. NEUROLOGICAL: N/A SKIN: dry, pallor. Bandages on feet b/l to prevent pressure ulcers. Laboratory Results - last 24 hr 07/03/18 07/03/18 07/04/18 17:05 21:58 05:30 WBC 11.3 H RBC 3.55 L Hgb 8.8 L Hct 26.8 L MCV 75.3 L MCH 24.8 L MCHC 33.0 RDW 32.1 H Plt Count 383 MPV 9.0 Sodium Potassium Chloride Carbon Dioxide Anion Gap BUN Creatinine Creat Clearance w eGFR POC Glucometer 180.41575 244.51262 Random Glucose Calcium Phosphorus Magnesium Total Bilirubin AST ALT Alkaline Phosphatase Total Protein Albumin 07/04/18 07/04/18 07/04/18 05:30 05:39 10:54 WBC RBC Hgb Hct MCV MCH MCHC RDW Plt Count MPV Sodium 141 Potassium 4.2 Chloride 103 Carbon Dioxide 29 Anion Gap 9 BUN 28 H Creatinine 0.6 Creat Clearance w eGFR > 60 POC Glucometer 309.41065 281.99753 Random Glucose 249 H Calcium 7.4 L Phosphorus 2.9 Magnesium 2.1 Total Bilirubin 1.1 H AST 20 ALT 9 L Alkaline Phosphatase 119 H D Total Protein 4.3 L Albumin 1.7 L Active Medications Generic Name Dose Route Start Last Admin Trade Name Freq PRN Reason Stop Dose Admin Acetaminophen 650 mg 07/04/18 16:53 Tylenol - PO Q4H PRN PAIN LEVEL 6-10 Albuterol/Ipratropium 1 amp 06/22/18 17:53 07/04/18 11:08 Duoneb - NEB 1 amp Q6H PRN Administration SHORTNESS OF BREATH Amino Acids 30 ml 07/01/18 17:30 07/04/18 10:29 Prosource No Carb Liquid Pkt PO 30 ml BID@0800,1730 REED Administration Enoxaparin Sodium 70 mg 06/30/18 11:30 07/04/18 10:41 Lovenox - SQ 70 mg BID REED Administration Metronidazole 500 mg in 100 mls @ 100 mls/hr 06/22/18 21:00 07/04/18 14:57 Flagyl 500mg Premixed Ivpb - IVPB 100 mls/hr Q6H-IV REED Administration Piperacillin Sod/Tazobactam 50 mls @ 100 mls/hr 06/23/18 02:00 07/04/18 10:31 Sod 3.375 gm/ Dextrose IVPB 100 mls/hr Q8H-IV REED Administration Protocol Caspofungin 50 mg/ Sodium 250 mls @ 250 mls/hr 06/26/18 10:00 07/04/18 10:30 Chloride IVPB 250 mls/hr DAILY REED Administration Furosemide 100 mg/ Dextrose 100 mls @ 2.5 mls/hr 07/03/18 18:51 07/03/18 21: 18 IVPB 2.5 mg/hr TITR REED 2.5 mls/hr Administration Protocol 2.5 MG/HR Insulin Aspart 1 vial 06/22/18 22:00 07/04/18 10:55 Novolog Vial Sliding Scale - SQ 6 units ACHS REED Administration Protocol Levothyroxine Sodium 44 mcg 06/23/18 07:00 07/04/18 06:12 Synthroid Injection - IVPUSH 44 mcg 0700 REED Administration Metoprolol Tartrate 50 mg 07/02/18 14:00 07/04/18 14:58 Lopressor - NGT 50 mg TID REED Administration Ondansetron HCl 4 mg 07/03/18 13:44 Zofran Injection IVPUSH Q8H PRN NAUSEA Pantoprazole Sodium 40 mg 06/23/18 10:00 07/04/18 10:42 Protonix Iv IVPUSH 40 mg DAILY REED Administration Potassium Chloride 40 meq 07/03/18 10:00 07/04/18 10:40 Potassium Chloride Oral Liquid GT 40 meq BID REED Administration ASSESSMENT/PLAN: Ms. Singh is an 87 y/o lady with a past medical history of A. fib (no AC), CVA , breast cancer, hypothyroidism, iron deficiency anemia, and DM. Pt has a h/o occult GI bleeding requiring blood transfusions. Pt has had a recent development of severe microcytic anemia and heme + stool. Has been on aspirin chronically for A fib. Has not had any specific GI complaints and has refused GI workups in past. Pt was referred to [facility] for a colonoscopy to r/o any GI bleed. Pt developed a perforation of her rectosigmoid colon s/p colonoscopy. Dr Lora, General Surgeon, was notified and pt was transfered from [facility] to [facility]. An exploratory laparotomy was performed where surgical resection of the rectosigmoid colon with closure of the anorectal stump and formation of an end colostomy Neuro: Alert, nonverbal. G.I- POD #12 Lopez's Procedure-->Sigmoid colonic perforation s/p colonoscopy 8 /, septic shock, fecal peritonitis -Colonic perforation, fecal peritonitis -S/P Lopez procedure POD #12 -Continue empiric zosyn/ flagyl -Caspofungin -ICU monitoring -Protonix 40 mg po daily -Enteral Feeds -650 mg po Acetaminophen PRN Fever/Pain PULM-Acute hypercapneic and hypoxic respiratory failure -high Flow O2 -Duoneb 1 AMP NEB Q6H -Chest physiotherapy Chest XRAY 18- b/L pleural effusions persist. -Lasix 2.5 mls/hr gtt. Decreased from 5 mls/hr as pt hypotensive and MAP decreased. AFIB: Lopressor 50 MG NGT TID per cardiology FEN No Fluids Monitor Electrolytes Enterel Feeds Osmolite DVT ppx: Lovenox 70 mg sq bid Dispo- To be transferred to [facility]. Visit type - Emergency Visit Emergency Visit: Yes ED Registration Date: 06/12/18 Care time: The patient presented to the Emergency Department on the above date and was hospitalized for further evaluation of their emergent condition. - New Patient This patient is new to me today: No - Critical Care Critical Care patient: Yes Total Critical Care Time (in minutes): 36 Critical Care Statement: The care of this patient involved high complexity decision making to prevent further life threatening deterioration of the patient 's condition and/or to evaluate & treat vital organ system(s) failure or risk of failure.
[2018-07-04] MEDS: FUROSEMIDE INJECTION 100 MG in DEXTROSE 5%-WATER - 90 ML IVPB SCH (19:00)
[2018-07-04] MEDS ORDERED: HEMOQUE TEST 1 EACH EACH ONE (21:18)
[2018-07-05] MEDS ORDERED: PIPERACILLIN/TAZOBACTAM 3.375 GM VIAL IVPB ONE ×2 (01:39→08:15)
[2018-07-05] MEDS ORDERED: DEXTROSE 5%-WATER - 50 ML IVPB ONE ×2 (01:39→08:15)
[2018-07-05] MEDS: PIPERACILLIN/TAZOB 3.375 GM 3.375 GM in DEXTROSE 5%-WATER - 50 ML IVPB SCH ×2 (01:48→09:22)
[2018-07-05] MEDS: FUROSEMIDE INJECTION 100 MG in DEXTROSE 5%-WATER - 90 ML IVPB SCH (01:49)
[2018-07-05] MEDS: LEVOTHYROXINE SODIUM 100 MCG VIAL IVPUSH SCH (06:08)
[2018-07-05] MEDS: INSULIN SLIDING SCALE (NOVOLOG) 1 VIAL SQ SCH ×2 (06:08→11:27)
[2018-07-05] MEDS: METOPROLOL TARTRATE 50 MG TABLET (FP) NGT SCH ×2 (06:08→13:16)
[2018-07-05 06:20] LABS: HEMATOCRIT 26.9 % (32.4-45.2); HEMOGLOBIN 8.9 GM/dL (10.7-15.3); MCHC 32.9 g/dl (32.0-36.0); MEAN PLT VOLUME 8.9 fl (7.5-11.1); PLATELET COUNT 426 K/MM3 (134-434); RBC 3.55 M/mm3 (3.60-5.2); RDW 32.1 % (11.6-15.6); WHITE BLOOD COUNT 10.6 K/mm3 (4.0-10.0)
[2018-07-05 06:35] LABS: ALBUMIN 1.7 g/dl (3.4-5.0); ALK PHOS 145 U/L (45-117); ANION GAP 6 (8-16); BILIRUBIN,TOTAL 0.9 mg/dL (0.2-1.0); BLOOD UREA NITROGEN 31 mg/dL (7-18); CALCIUM 7.2 mg/dL (8.5-10.1); CHLORIDE 107 mmol/L (98-107); CO2 31 mmol/L (21-32); CREATININE 0.6 mg/dL (0.55-1.02); GLUCOSE,RANDOM 261 mg/dL (74-106); PHOSPHOROUS 2.4 mg/dL (2.5-4.9); POTASSIUM 5.2 mmol/L (3.5-5.1); SGOT/AST 16 U/L (15-37); SGPT/ALT 11 U/L (12-78); SODIUM 144 mmol/L (136-145); TOT PROT 4.5 g/dl (6.4-8.2)
[2018-07-05] MEDS ORDERED: PT OWN MED DRAWER 7, Y5N ONE (08:14)
[2018-07-05] MEDS: AMINO ACIDS/PROTEIN HYDROLYS 30 ML LIQUID.PKT PO SCH (08:19)
--- NOTE | 2018-07-05 08:31 | PN ---
Progress Note (short form) - Note Progress Note: 87yo F s/p palmer's colostomy for perforated colon after colonoscopy. Pt continues to be in ICU but is off pressers. Pt spike fever last night. Pt continues to be on tube feeds, will see speech and swallow today. Pt will also possibly be transferred to [facility]. Last Vital Signs Temp Pulse Resp BP Pulse Ox 100.3 F H 112 H 17 92/51 96 07/05/18 11:00 07/05/18 11:00 07/05/18 11:00 07/05/18 09:00 07/05/18 08:36 CBC, BMP 07/05/18 05:20 07/05/18 05:20 PE: Gen: A&O x3 Resp: breathing comfortably Abd: soft, nondistended, midline incision clean with good granulation tissue, no erythema, serous discharge. Ostomy shows stool and air in bag. Assessment: s/p hemicolectomy and hartmans after bowel perforation -recommend pull central line as been in place for 9+ days -if spikes fever again, consider fever work up with blood cx -continue abx as per ID -dressing changed today, continue wet to dry dressing changes -will continue to follow, if pt is transferred, please have PT follow up with Dr. Lora as outpatient.
[2018-07-05] MEDS: ENOXAPARIN NA (PORCINE) 80 MG/0.8 ML DISP.SYRIN SQ SCH (09:23)
[2018-07-05] MEDS: PANTOPRAZOLE SODIUM 40 MG VIAL IVPUSH SCH (09:23)
[2018-07-05] MEDS ORDERED: FUROSEMIDE INJECTION 100 MG in DEXTROSE 5%-WATER - 90 ML IVPB SCH ×2 (09:33→09:37)
--- NOTE | 2018-07-05 09:39 | PN ---
Physical Exam: SUBJECTIVE: Patient seen and examined OBJECTIVE: Vital Signs Period Temp Pulse Resp BP Sys/De La O Pulse Ox Last 24 Hr 100.3 F-101.4 F 101-126 18-20 95-125/42-80 92-96 GENERAL: The patient is awake, alert, and fully oriented, in no acute distress. HEAD: Normal with no signs of trauma. EYES: PERRL, extraocular movements intact, sclera anicteric, conjunctiva clear. No ptosis. ENT: Ears normal, nares patent, oropharynx clear without exudates, moist mucous membranes. NECK: Trachea midline, full range of motion, supple. LUNGS: Breath sounds equal, clear to auscultation bilaterally, no wheezes, no crackles, no accessory muscle use. HEART: Regular rate and rhythm, S1, S2 without murmur, rub or gallop. ABDOMEN: Soft, nontender, nondistended, normoactive bowel sounds, no guarding, no rebound, no hepatosplenomegaly, no masses. EXTREMITIES: 2+ pulses, warm, well-perfused, no edema. NEUROLOGICAL: Cranial nerves II through XII grossly intact. Normal speech, gait not observed. PSYCH: Normal mood, normal affect. SKIN: Warm, dry, normal turgor, no rashes or lesions noted Laboratory Results - last 24 hr 07/04/18 07/04/18 07/04/18 05:39 10:54 17:11 WBC RBC Hgb Hct MCV MCH MCHC RDW Plt Count MPV Sodium Potassium Chloride Carbon Dioxide Anion Gap BUN Creatinine Creat Clearance w eGFR POC Glucometer 309.66663 281.10194 332.09404 Random Glucose Calcium Phosphorus Magnesium Total Bilirubin AST ALT Alkaline Phosphatase Total Protein Albumin 07/04/18 07/05/18 07/05/18 21:23 05:20 05:20 WBC 10.6 H RBC 3.55 L Hgb 8.9 L Hct 26.9 L MCV 76.0 L MCH 25.0 L MCHC 32.9 RDW 32.1 H Plt Count 426 MPV 8.9 Sodium 144 Potassium 5.2 H Chloride 107 Carbon Dioxide 31 Anion Gap 6 L BUN 31 H Creatinine 0.6 Creat Clearance w eGFR > 60 POC Glucometer 280.26657 Random Glucose 261 H Calcium 7.2 L Phosphorus 2.4 L Magnesium 2.0 Total Bilirubin 0.9 AST 16 ALT 11 L Alkaline Phosphatase 145 H D Total Protein 4.5 L Albumin 1.7 L 07/05/18 05:24 WBC RBC Hgb Hct MCV MCH MCHC RDW Plt Count MPV Sodium Potassium Chloride Carbon Dioxide Anion Gap BUN Creatinine Creat Clearance w eGFR POC Glucometer 329.41673 Random Glucose Calcium Phosphorus Magnesium Total Bilirubin AST ALT Alkaline Phosphatase Total Protein Albumin Active Medications Generic Name Dose Route Start Last Admin Trade Name Freq PRN Reason Stop Dose Admin Acetaminophen 650 mg 07/04/18 16:53 Tylenol - PO Q4H PRN PAIN LEVEL 6-10 Albuterol/Ipratropium 1 amp 06/22/18 17:53 07/04/18 11:08 Duoneb - NEB 1 amp Q6H PRN Administration SHORTNESS OF BREATH Amino Acids 30 ml 07/01/18 17:30 07/05/18 08:19 Prosource No Carb Liquid Pkt PO 30 ml BID@0800,1730 REED Administration Enoxaparin Sodium 70 mg 06/30/18 11:30 07/05/18 09:23 Lovenox - SQ 70 mg BID REED Administration Metronidazole 500 mg in 100 mls @ 100 mls/hr 06/22/18 21:00 07/05/18 08:22 Flagyl 500mg Premixed Ivpb - IVPB 100 mls/hr Q6H-IV REED Administration Piperacillin Sod/Tazobactam 50 mls @ 100 mls/hr 06/23/18 02:00 07/05/18 09:22 Sod 3.375 gm/ Dextrose IVPB 100 mls/hr Q8H-IV REED Administration Protocol Caspofungin 50 mg/ Sodium 250 mls @ 250 mls/hr 06/26/18 10:00 07/04/18 10:30 Chloride IVPB 250 mls/hr DAILY REED Administration Furosemide 100 mg/ Dextrose 100 mls @ 2.5 mls/hr 07/03/18 18:51 07/05/18 01: 49 IVPB 2.5 mg/hr TITR REED 2.5 mls/hr Administration Protocol 2.5 MG/HR Insulin Aspart 1 vial 06/22/18 22:00 07/05/18 06:08 Novolog Vial Sliding Scale - SQ 8 units ACHS REED Administration Protocol Levothyroxine Sodium 44 mcg 06/23/18 07:00 07/05/18 06:08 Synthroid Injection - IVPUSH 44 mcg 0700 REED Administration Metoprolol Tartrate 50 mg 07/02/18 14:00 07/05/18 06:08 Lopressor - NGT 50 mg TID REED Administration Ondansetron HCl 4 mg 07/03/18 13:44 Zofran Injection IVPUSH Q8H PRN NAUSEA Pantoprazole Sodium 40 mg 06/23/18 10:00 07/05/18 09:23 Protonix Iv IVPUSH 40 mg DAILY REED Administration ASSESSMENT/PLAN: continues to spike fevers, tachycardic, leukocytosis resolving Volume overload 07/05 CXR: persistent bilateral effusions, UOP has fallen off, up 2kg since yesterday; Cr stable; increase lasix to 7 mg/hr
--- NOTE | 2018-07-05 09:47 | PN ---
Progress Note, Physician History of Present Illness: Remains on HF O2 NC and arousable s/p Lopez's procedure and fecal peritonitis. Remains off pressors in rate-controlled afib. - Current Medication List Current Medications: Active Medications Acetaminophen (Tylenol -) 650 mg PO Q4H PRN PRN Reason: PAIN LEVEL 6-10 Albuterol/Ipratropium (Duoneb -) 1 amp NEB Q6H PRN PRN Reason: SHORTNESS OF BREATH Last Admin: 07/04/18 11:08 Dose: 1 amp Amino Acids (Prosource No Carb Liquid Pkt) 30 ml PO BID@0800,1730 [facility] Last Admin: 07/05/18 08:19 Dose: 30 ml Enoxaparin Sodium (Lovenox -) 70 mg SQ BID [facility] Last Admin: 07/05/18 09:23 Dose: 70 mg Metronidazole (Flagyl 500mg Premixed Ivpb -) 500 mg in 100 mls @ 100 mls/hr IVPB Q6H-IV [facility] Last Admin: 07/05/18 08:22 Dose: 100 mls/hr Piperacillin Sod/Tazobactam (Sod 3.375 gm/ Dextrose) 50 mls @ 100 mls/hr IVPB Q8H-IV [facility]; Protocol Last Admin: 07/05/18 09:22 Dose: 100 mls/hr Caspofungin 50 mg/ Sodium (Chloride) 250 mls @ 250 mls/hr IVPB DAILY [facility] Last Admin: 07/04/18 10:30 Dose: 250 mls/hr Furosemide 100 mg/ Dextrose 100 mls @ 7 mls/hr IVPB TITR [facility]; Protocol Insulin Aspart (Novolog Vial Sliding Scale -) 1 vial SQ ACHS [facility]; Protocol Last Admin: 07/05/18 06:08 Dose: 8 units Levothyroxine Sodium (Synthroid Injection -) 44 mcg IVPUSH 0700 [facility] Last Admin: 07/05/18 06:08 Dose: 44 mcg Metoprolol Tartrate (Lopressor -) 50 mg NGT TID [facility] Last Admin: 07/05/18 06:08 Dose: 50 mg Ondansetron HCl (Zofran Injection) 4 mg IVPUSH Q8H PRN PRN Reason: NAUSEA Pantoprazole Sodium (Protonix Iv) 40 mg IVPUSH DAILY [facility] Last Admin: 07/05/18 09:23 Dose: 40 mg - Objective Vital Signs: Vital Signs Temperature 100.3 F H 07/05/18 09:00 Pulse Rate 112 H 07/05/18 09:00 Respiratory Rate 16 07/05/18 09:00 Blood Pressure 92/51 07/05/18 09:00 O2 Sat by Pulse Oximetry (%) 96 07/05/18 08:36 Constitutional: Yes: No Distress, Calm, Thin Neck: Yes: Supple Cardiovascular: Yes: Tachycardia, Pulse Irregular, Murmur (2/6 SM) Respiratory: Yes: On Nasal O2 (HFO2) Gastrointestinal: Yes: Soft, Hypoactive Bowel Sounds Edema: Yes Labs: CBC, BMP 07/05/18 05:20 07/05/18 05:20 INR, PTT INR 1.27 (0.82-1.09) H 06/12/18 07:47 - ....Imaging Chest X-ray: Report Reviewed (Bilateral effusions) Problem List - Problems (1) Acute on chronic diastolic heart failure Code(s): I50.33 - ACUTE ON CHRONIC DIASTOLIC (CONGESTIVE) HEART FAILURE (2) Atrial fibrillation Code(s): I48.91 - UNSPECIFIED ATRIAL FIBRILLATION Qualifiers: Atrial fibrillation type: persistent Qualified Code(s): I48.1 - Persistent atrial fibrillation (3) Pleural effusion Code(s): J90 - PLEURAL EFFUSION, NOT ELSEWHERE CLASSIFIED (4) Hypothyroidism Code(s): E03.9 - HYPOTHYROIDISM, UNSPECIFIED Qualifiers: Hypothyroidism type: unspecified Qualified Code(s): E03.9 - Hypothyroidism , unspecified (5) Perforation of colon as colonoscopy complication Code(s): K63.1 - PERFORATION OF INTESTINE (NONTRAUMATIC); K91.71 - ACCIDENTAL PNCTR & LAC OF A DGSTV SYS ORG DUR DGSTV SYS PROC (6) Status post Sam procedure Code(s): Z93.3 - COLOSTOMY STATUS (7) Acute on chronic respiratory failure with hypoxia and hypercapnia Code(s): J96.21 - ACUTE AND CHRONIC RESPIRATORY FAILURE WITH HYPOXIA; J96.22 - ACUTE AND CHRONIC RESPIRATORY FAILURE WITH HYPERCAPNIA Assessment/Plan cta of chest: no CT evidence of pulmonary embolism, pulmonary vascular congestion with cardiomegaly, bilateral pleural effusion Head CT (June 14 2018): no acute pathology echo LV WNL pleural effusion severe TR RVSP elevated PVR 1. Colonic perforation, fecal peritonitis, post Lopez procedure post sepsis syndrome 2. Acute hypercapneic respiratory failure referable to 3. Acute on chronic class II-III NYHA classification LV failure related to diastolic LV dysfunction, persistent pulmonary vascular congestion 4. CAD angina pectoris 5. Severe TR with pulmonary HTN 6. Pleural effusions post right thoracentesis (transudate) 7. Persistent atrial fibrillation with periods of rapid ventricular response [id number] score of 5, not on A/C as patient has declined in past 8. Hypothyroidism 9. Carotid stenosis 10. Anemia PLAN: 1. HF NC O2 for WOB, BD, antibiotics and antifungal course per the primary team/ ID 2. Metoprolol 50 tid as tolerated - uptitrate 3. IV Lasix drip with monitor diuretic response, renal fxn and electrolytes 4. Considering the above noted [id number] score of 5 A/C agree with Lovenox 70 bid with transition to NOAC if no further procedures anticipated 5. Enteral feeds, DVT/GI prophylaxis and supportive care 6. Surgery follow-up and drain d/johnny 7. As outlined above plan to transfer to a [facility] per family request
[2018-07-05] MEDS ORDERED: FUROSEMIDE 40 MG/4 ML INJECTABLE VIAL IVPUSH SCH (10:00)
--- NOTE | 2018-07-05 10:42 | DS ---
Physical Exam: SUBJECTIVE: Patient seen and examined at bedside in ICU. OBJECTIVE: Vital Signs Period Temp Pulse Resp BP Sys/De La O Pulse Ox Last 24 Hr 100.3 F-101.4 F 101-126 16-20 92-125/42-80 92-96 PHYSICAL EXAM GENERAL: The patient is awake, nods head, does not follow commands ENT: NGT LUNGS: Scattered rhonchi HEART: Irregular, S1, S2 ABDOMEN: Soft, midline incision intact, liquid stool in colostomy; kapoor with dark urine UPPER & LOWER EXTREMITIES: edematous, weeping skin Laboratory Results - last 24 hr 07/04/18 07/05/18 07/05/18 21:23 05:20 05:20 WBC 10.6 H RBC 3.55 L Hgb 8.9 L Hct 26.9 L MCV 76.0 L MCH 25.0 L MCHC 32.9 RDW 32.1 H Plt Count 426 MPV 8.9 Sodium 144 Potassium 5.2 H Chloride 107 Carbon Dioxide 31 Anion Gap 6 L BUN 31 H Creatinine 0.6 Creat Clearance w eGFR > 60 POC Glucometer [phone] Random Glucose 261 H Calcium 7.2 L Phosphorus 2.4 L Magnesium 2.0 Total Bilirubin 0.9 AST 16 ALT 11 L Alkaline Phosphatase 145 H D Total Protein 4.5 L Albumin 1.7 L HOSPITAL COURSE: Date of Admission:06/12/18 Date of Discharge: 07/05/18 Pre hospital course 87 year-old female with a past medical history of A. fib (not on AC), CVA, breast cancer, hypothyroidism, iron deficiency anemia, and DM. Son (Asif) at bedside, reports ongoing weakness and shortness of breath for the past several months. The patient was evaluated by her primary care physician Dr. Painting on , patient received 1 unit of packed red blood cells through the infusion center. Patient reports feeling increasingly more dyspneic within the past 24 hours with generalized weakness. Patient denies any chest pain or dizziness. ER course (1)CTA of chest, pulmonary vascular congestion with cardiomegaly, no discrete pulmonary embolus, moderate to large right sided and small to moderate left- sided pleural effusion, with associated bibasilar compressive atelectasis. (2)hemoglobin 7.5 (3)EKG, A. fib, nonspecific ST and t wave abnormality Subsequent hospital course 87 year-old female with a PMH significant for CVA, afib not on anti-coagulation , diastolic heart failure, anemia, diet-controlled diabetes, breast cancer, and hypothyroidism. Admitted for respiratory failure, acute on chronic diastolic heart failure exacerbation, anemia, and UTI. Hospital course complicated by bowel perforation during the course of colonoscopy, s/p Lopez's procedure. Developed septic shock secondary to fecal peritonitis which has improved, off pressors. Acute hypercapnic and hypoxic respiratory failure --on admission treated with BiPAP and diuretics with good results; diuresed well, and respiratory status stabilized --underwent therapeutic thoracentesis on 06/16 --surgery on 06/22 for Lopez's procedure, remained intubated until 07/02 --on high flow oxygen at time of transfer to [facility] Acute on chronic diastolic heart failure --06/12 Echo: LV normal; RV not well-visualized; mild to moderate MR; severe TR; pHTN; trace PI; trivial pericardial effusion; pleural effusion present --has been treated with Lasix but continues to be volume overloaded, anisarcic, third-spacing, very low albumin --Lasix dripped stopped on 07/05, will switch to pushes of IV Lasix and albumin Bilateral pleural effusions --underwent diagnostic and therapeutic thoracentesis on 06/16; pathology negative for malignant cells; pleural fluid cultures negative to date Blood loss anemia --Hgb 7.5-->7.0 on admission, stool occult positive --06/13 transfused 2U PRBC; last transfused 06/22 1U PRBC --06/19 upper endoscopy was unremarkable --06/22 colonoscopy, bowel perforation Sigmoid colonic perforation, fecal peritonitis s/p Lopez procedure Septic shock, resolved --continue metronidazole, Zosyn, caspofungin Atrial fibrillation --rate to 120s --continue metoprolol TID --full dose lovenox Carotid artery stenosis --significant bilateral disease Hypothyroidism --continue levothyroxine NIDDM --Novolog sliding scale coverage E. coli UTI --antibiotics as above DVT prophylaxis: on full dose lovenox Dispo: continues to require ICU level care. Transferring to [facility] at family's request. Minutes to complete discharge: 45 Discharge Summary Reason For Visit: PLEURAL EFFUSION/RESPIRATORY DISTRESS Current Active Problems Acute hypercapnic respiratory failure (Acute) Acute on chronic diastolic heart failure (Acute) Acute on chronic respiratory failure with hypoxia and hypercapnia (Acute) Atrial fibrillation (Acute) Hypothyroidism (Acute) Perforation of colon as colonoscopy complication (Acute) Pleural effusion (Acute) Pre-operative cardiovascular examination (Acute) Pulmonary hypertension (Acute) Respiratory distress (Acute) Septic shock (Acute) Small intestine obstruction (Acute) Status post Asm procedure (Acute) Condition: Guarded - Instructions Referrals: Frederick Lora MD [Staff Physician] - Everardo Painting MD [Primary Care Provider] - Disposition: TRANSFER ACUTE CARE/OTHER HOSP - Home Medications Comprehensive Discharge Medication List: Ambulatory Orders Bimatoprost [Lumigan] 1 drop IO HS 06/14/18 Acetaminophen [Tylenol .Regular Strength -] 650 mg PO Q4H PRN tablet 07/05/18 Albumin Human [Albumin Human 25%] 25 gm IVPB Q30M vial 07/05/18 Albuterol 2.5/Ipratropium 0.5 [Duoneb -] 1 amp NEB Q6H PRN amp 07/05/18 Amino Acids/Protein Hydrolys [Prosource No Carb Liquid Pkt] 30 ml PO BID@0800, 1730 packet 07/05/18 Caspofungin Acetate [Cancidas (Restricted To Id) -] 50 mg IVPB DAILY vial 07/05 Enoxaparin [Lovenox -] 70 mg SQ BID disp.syrin 07/05/18 Furosemide Injection [Lasix Injection -] 40 mg IVPUSH DAILY vial 07/05/18 Insulin Sliding Scale [Novolog Vial Sliding Scale -] 1 vial SQ ACHS units 07/05 Levothyroxine Sodium [Synthroid Injection -] 44 mcg IVPUSH 0700 vial 07/05/18 Metoprolol Tartrate [Lopressor -] 50 mg NGT TID tablet 07/05/18 Ondansetron Injection [Zofran Injection] 4 mg IVPUSH Q8H PRN vial 07/05/18 Pantoprazole Sodium [Protonix IV] 40 mg IVPUSH DAILY vial 07/05/18 Piperacillin/Tazob 3.375 gm [Zosyn -] 3.375 gm IVPB Q8H-IV vial 07/05/18 Potassium Chloride [Potassium Chloride Oral Liquid] 40 meq GT BID cup 08/15/18 This patient is new to me today: No Emergency Visit: Yes ED Registration Date: 06/12/18 Care time: The patient presented to the Emergency Department on the above date and was hospitalized for further evaluation of their emergent condition. Critical Care patient: Yes Total Critical Care Time (in minutes): 45 Critical Care Statement: The care of this patient involved high complexity decision making to prevent further life threatening deterioration of the patient 's condition and/or to evaluate & treat vital organ system(s) failure or risk of failure. - Discharge Referral Referred to [facility] Med P.C.: No
[2018-07-05] MEDS: CASPOFUNGIN ACETATE 50 MG in SODIUM CHLORIDE 250 ML IVPB SCH (11:00)
[2018-07-05] MEDS ORDERED: ALBUMIN HUMAN 25% 100 ML VIAL IVPB SCH (11:00)
[2018-07-05] MEDS ORDERED: ALBUMIN HUMAN 25% 12.5 GM/50 ML VIAL IVPB SCH (11:00)
[2018-07-05] MEDS ORDERED: fentaNYL CITRATE 250 MCG/5 ML VIAL IVPUSH ONE (11:39)
--- NOTE | 2018-07-05 12:04 | PN ---
Teaching Attending Note Name of Resident: Alfredo Rodriguez ATTENDING PHYSICIAN STATEMENT I saw and evaluated the patient. I reviewed the resident's note and discussed the case with the resident. I agree with the resident's findings and plan as documented. SUBJECTIVE: Pt seen and examined in the ICU. Remains on high flow O2 40L/min, 40% FiO2. Lethargic but arousable. Persistent low grade temps. OBJECTIVE: Vital Signs Period Temp Pulse Resp BP Sys/De La O Pulse Ox Last 24 Hr 100.3 F-101.4 F 101-126 16-20 92-125/42-80 92-96 Intake & Output 07/02/18 07/03/18 07/04/18 07/05/18 23:59 23:59 23:59 23:59 Intake Total 1107 2011 1757.5 520 Output Total 4360 1999 1000 350 Balance -3253 12 757.5 170 Weight 76.657 kg 64.58 kg 64.495 kg 66.088 kg Gen: lethargic on HFOT Heart: tachycardic, irregular Lung: bilateral rhonchi Abd: soft, nontender, +ostomy pink with stool output Ext: + edema CBC, BMP 07/05/18 05:20 07/05/18 05:20 Active Medications Acetaminophen (Tylenol -) 650 mg PO Q4H PRN PRN Reason: PAIN LEVEL 6-10 Albumin Human (Albumin Human 25% -) 25 gm IVPB Q6H [facility] Stop: 07/05/18 17:01 Last Admin: 07/05/18 11:25 Dose: 25 gm Albuterol/Ipratropium (Duoneb -) 1 amp NEB Q6H PRN PRN Reason: SHORTNESS OF BREATH Last Admin: 07/04/18 11:08 Dose: 1 amp Amino Acids (Prosource No Carb Liquid Pkt) 30 ml PO BID@0800,1730 [facility] Last Admin: 07/05/18 08:19 Dose: 30 ml Enoxaparin Sodium (Lovenox -) 70 mg SQ BID [facility] Last Admin: 07/05/18 09:23 Dose: 70 mg Fentanyl (Sublimaze Injection -) 25 mcg IVPUSH ONCE ONE Stop: 07/05/18 11:40 Last Admin: 07/05/18 11:48 Dose: 25 mcg Furosemide (Lasix Injection -) 40 mg IVPUSH DAILY [facility] Last Admin: 07/05/18 11:50 Dose: 40 mg Furosemide (Lasix Injection -) 40 mg IVPUSH ONCE ONE Stop: 07/05/18 18:01 Metronidazole (Flagyl 500mg Premixed Ivpb -) 500 mg in 100 mls @ 100 mls/hr IVPB Q6H-IV [facility] Last Admin: 07/05/18 08:22 Dose: 100 mls/hr Piperacillin Sod/Tazobactam (Sod 3.375 gm/ Dextrose) 50 mls @ 100 mls/hr IVPB Q8H-IV [facility]; Protocol Last Admin: 07/05/18 09:22 Dose: 100 mls/hr Caspofungin 50 mg/ Sodium (Chloride) 250 mls @ 250 mls/hr IVPB DAILY [facility] Last Admin: 07/05/18 11:00 Dose: 250 mls/hr Insulin Aspart (Novolog Vial Sliding Scale -) 1 vial SQ ACHS [facility]; Protocol Last Admin: 07/05/18 11:27 Dose: 8 units Levothyroxine Sodium (Synthroid Injection -) 44 mcg IVPUSH 0700 [facility] Last Admin: 07/05/18 06:08 Dose: 44 mcg Metoprolol Tartrate (Lopressor -) 50 mg NGT TID [facility] Last Admin: 07/05/18 06:08 Dose: 50 mg Ondansetron HCl (Zofran Injection) 4 mg IVPUSH Q8H PRN PRN Reason: NAUSEA Pantoprazole Sodium (Protonix Iv) 40 mg IVPUSH DAILY [facility] Last Admin: 07/05/18 09:23 Dose: 40 mg ASSESSMENT AND PLAN: Sigmoid Colon Rupture Fecal Peritonitis Septic Shock resolving Acute Hypoxic and Hypercapneic Respiratory Failure Acute on Chronic Diastolic Heart Failure Pulmonary HTN CAD Atrial Fibrillation with RVR Hyponatremia Hypothyroidism UTI Atelectasis - continue antibiotics - albumin/lasix today - monitoring off pressors, maintain MAP >65 - replete lytes - inhaled bronchodilators - rate control - continue anticoagulation - taper flow rate, FiO2 to keep Spo2 >90% - monitor ostomy output - enteral feeds - DVT/GI prophylaxis - continue ICU monitoring critical care time spent in reviewing chart, evaluating patient and formulating plan 35 min
--- NOTE | 2018-07-05 12:20 | PN ---
Progress Note, Physician History of Present Illness: Awake Off sedation and pressors Lethargic Low grade temp WBC 10.6 Operative cultures Enterococcus, E. coli, yeast - Current Medication List Current Medications: Active Medications Acetaminophen (Tylenol -) 650 mg PO Q4H PRN PRN Reason: PAIN LEVEL 6-10 Albumin Human (Albumin Human 25% -) 25 gm IVPB Q6H [facility] Stop: 07/05/18 17:01 Last Admin: 07/05/18 11:25 Dose: 25 gm Albuterol/Ipratropium (Duoneb -) 1 amp NEB Q6H PRN PRN Reason: SHORTNESS OF BREATH Last Admin: 07/04/18 11:08 Dose: 1 amp Amino Acids (Prosource No Carb Liquid Pkt) 30 ml PO BID@0800,1730 [facility] Last Admin: 07/05/18 08:19 Dose: 30 ml Enoxaparin Sodium (Lovenox -) 70 mg SQ BID [facility] Last Admin: 07/05/18 09:23 Dose: 70 mg Fentanyl (Sublimaze Injection -) 25 mcg IVPUSH ONCE ONE Stop: 07/05/18 11:40 Last Admin: 07/05/18 11:48 Dose: 25 mcg Furosemide (Lasix Injection -) 40 mg IVPUSH DAILY [facility] Last Admin: 07/05/18 11:50 Dose: 40 mg Furosemide (Lasix Injection -) 40 mg IVPUSH ONCE ONE Stop: 07/05/18 18:01 Metronidazole (Flagyl 500mg Premixed Ivpb -) 500 mg in 100 mls @ 100 mls/hr IVPB Q6H-IV [facility] Last Admin: 07/05/18 08:22 Dose: 100 mls/hr Piperacillin Sod/Tazobactam (Sod 3.375 gm/ Dextrose) 50 mls @ 100 mls/hr IVPB Q8H-IV [facility]; Protocol Last Admin: 07/05/18 09:22 Dose: 100 mls/hr Caspofungin 50 mg/ Sodium (Chloride) 250 mls @ 250 mls/hr IVPB DAILY [facility] Last Admin: 07/05/18 11:00 Dose: 250 mls/hr Insulin Aspart (Novolog Vial Sliding Scale -) 1 vial SQ ACHS [facility]; Protocol Last Admin: 07/05/18 11:27 Dose: 8 units Levothyroxine Sodium (Synthroid Injection -) 44 mcg IVPUSH 0700 [facility] Last Admin: 07/05/18 06:08 Dose: 44 mcg Metoprolol Tartrate (Lopressor -) 50 mg NGT TID [facility] Last Admin: 07/05/18 06:08 Dose: 50 mg Ondansetron HCl (Zofran Injection) 4 mg IVPUSH Q8H PRN PRN Reason: NAUSEA Pantoprazole Sodium (Protonix Iv) 40 mg IVPUSH DAILY [facility] Last Admin: 07/05/18 09:23 Dose: 40 mg - Objective Vital Signs: Vital Signs Temperature 100.3 F H 07/05/18 11:00 Pulse Rate 112 H 07/05/18 11:00 Respiratory Rate 17 07/05/18 11:00 Blood Pressure 92/51 07/05/18 09:00 O2 Sat by Pulse Oximetry (%) 96 07/05/18 11:35 Constitutional: Yes: No Distress Cardiovascular: Yes: Regular Rate and Rhythm, S1, S2 Respiratory: Yes: Diminished Gastrointestinal: Yes: Soft, Other (+ surgical wound packed; +ostomy). No: Tenderness Edema: Yes Labs: CBC, BMP 07/05/18 05:20 07/05/18 05:20 INR, PTT INR 1.27 (0.82-1.09) H 06/12/18 07:47 Assessment/Plan POD #13 Lopez procedure Colonic perforation, fecal peritonitis Sepsis/ septic shock secondary to GI source Operative c/s Enterococcus, E coli, Yeast Pulmonary vascular congestion ? pneumonia Continue empiric zosyn/ flagyl / cancidas ICU monitoring Prognosis guarded
[2018-07-05 13:03] VITALS: BP 111/48; PULSE 124; TEMP 100.4
[2018-07-05] MEDS ORDERED: FUROSEMIDE 40 MG/4 ML INJECTABLE VIAL IVPUSH ONE (18:00)
--- NOTE | 2018-07-05 20:42 | PN ---
Physical Exam: SUBJECTIVE: Patient seen and examined this am in icu. Pt awake, on high flow O2 40% fio2. Central line removed, currently transferred to [facility] this afternoon. OBJECTIVE: Vital Signs Period Temp Pulse Resp BP Sys/De La O Pulse Ox Last 24 Hr 100.3 F-100.4 F 101-126 16-23 92-125/48-80 92-96 GENERAL: Awake, NG tube in place. HEAD: NC/AT NECK: Trachea midline. No JVD. Central line removed. LUNGS: BS dec at bases. Rhonchi throughout HEART: Irregular, rate controlled. ABDOMEN: Soft. Colostomy present. EXTREMITIES: onycholysis, upper extremities swollen, bandages on feet b/l to prevent pressure ulcers. NEUROLOGICAL: N/A SKIN: dry, pallor. Bandages on feet b/l to prevent pressure ulcers. Laboratory Results - last 24 hr 07/04/18 07/05/18 07/05/18 21:23 05:20 05:20 WBC 10.6 H RBC 3.55 L Hgb 8.9 L Hct 26.9 L MCV 76.0 L MCH 25.0 L MCHC 32.9 RDW 32.1 H Plt Count 426 MPV 8.9 Sodium 144 Potassium 5.2 H Chloride 107 Carbon Dioxide 31 Anion Gap 6 L BUN 31 H Creatinine 0.6 Creat Clearance w eGFR > 60 POC Glucometer 280.70441 Random Glucose 261 H Calcium 7.2 L Phosphorus 2.4 L Magnesium 2.0 Total Bilirubin 0.9 AST 16 ALT 11 L Alkaline Phosphatase 145 H D Total Protein 4.5 L Albumin 1.7 L 07/05/18 07/05/18 05:24 11:08 WBC RBC Hgb Hct MCV MCH MCHC RDW Plt Count MPV Sodium Potassium Chloride Carbon Dioxide Anion Gap BUN Creatinine Creat Clearance w eGFR POC Glucometer 329.60393 [phone] Random Glucose Calcium Phosphorus Magnesium Total Bilirubin AST ALT Alkaline Phosphatase Total Protein Albumin ASSESSMENT/PLAN: Ms. Singh is an 87 y/o lady with a past medical history of A. fib (no AC), CVA , breast cancer, hypothyroidism, iron deficiency anemia, and DM. Pt has a h/o occult GI bleeding requiring blood transfusions. Pt has had a recent development of severe microcytic anemia and heme + stool. Has been on aspirin chronically for A fib. Has not had any specific GI complaints and has refused GI workups in past. Pt was referred to [facility] for a colonoscopy to r/o any GI bleed. Pt developed a perforation of her rectosigmoid colon s/p colonoscopy. Dr Lora, General Surgeon, was notified and pt was transfered from [facility] to [facility]. An exploratory laparotomy was performed where surgical resection of the rectosigmoid colon with closure of the anorectal stump and formation of an end colostomy Neuro: Alert, nonverbal. G.I- POD #13 Lopez's Procedure-->Sigmoid colonic perforation s/p colonoscopy /, septic shock, fecal peritonitis -Colonic perforation, fecal peritonitis -S/P Lopez procedure POD #13 -empiric zosyn/ flagyl -Caspofungin -ICU monitoring -Protonix 40 mg po daily -Enteral Feeds -650 mg po Acetaminophen PRN Fever/Pain PULM-Acute hypercapneic and hypoxic respiratory failure -high Flow O2 40% -Duoneb 1 AMP NEB Q6H -Chest physiotherapy Chest XRAY 07/04/18- b/L pleural effusions persist. Chest XRAY today 07/05--> no significant change. -Lasix gtt D/C'ed. Lasix IVPUSH 40 mg after Albumin 25 GM. AFIB: Lopressor 50 MG NGT TID per cardiology FEN No Fluids Monitor Electrolytes Enterel Feeds Osmolite DVT ppx: Lovenox 70 mg sq bid Dispo- Transferred to [facility]. Visit type - Emergency Visit Emergency Visit: Yes ED Registration Date: 06/12/18 Care time: The patient presented to the Emergency Department on the above date and was hospitalized for further evaluation of their emergent condition. - New Patient This patient is new to me today: No - Critical Care Critical Care patient: Yes Total Critical Care Time (in minutes): 35 Critical Care Statement: The care of this patient involved high complexity decision making to prevent further life threatening deterioration of the patient 's condition and/or to evaluate & treat vital organ system(s) failure or risk of failure.
== END 2018-07-05 14:30 | disposition short-term general hospital (02) | DRG 264 ==
LOC: FER 06:37 → FM/S 10:03 → UNDOADMIN 10:03 → FM/S 06-19 20:32 → JICU 06-22 11:55
PROVIDERS: ADMIT Hospitalist; ATTEND Nurse Practitioner Acute Care
PROC: 30233N1 Transfusion of Nonautologous Red Blood Cells into Peripheral Vein, Percutaneous Approach (ICD-10-PCS; 2018-06-13)
PROC: 0W993ZX Drainage of Right Pleural Cavity, Percutaneous Approach, Diagnostic (ICD-10-PCS; principal; 2018-06-16)
PROC: 0DJD8ZZ Inspection of Lower Intestinal Tract, Via Natural or Artificial Opening Endoscopic (ICD-10-PCS; 2018-06-19)
PROC: 0DBN0ZZ Excision of Sigmoid Colon, Open Approach (ICD-10-PCS; 2018-06-22)
PROC: 05HM33Z Insertion of Infusion Device into Right Internal Jugular Vein, Percutaneous Approach (ICD-10-PCS; 2018-06-22)
PROC: 0D9670Z Drainage of Stomach with Drainage Device, Via Natural or Artificial Opening (ICD-10-PCS; 2018-06-22)
PROC: 0DD68ZX Extraction of Stomach, Via Natural or Artificial Opening Endoscopic, Diagnostic (ICD-10-PCS; 2018-06-22)
DX: I11.0 Hypertensive heart disease with heart failure (principal); G93.41 Metabolic encephalopathy; J96.02 Acute respiratory failure with hypercapnia; J18.9 Pneumonia, unspecified organism; J96.01 Acute respiratory failure with hypoxia; K63.1 Perforation of intestine (nontraumatic); K65.9 Peritonitis, unspecified; A41.89 Other specified sepsis; R65.21 Severe sepsis with septic shock; D62 Acute posthemorrhagic anemia; N39.0 Urinary tract infection, site not specified; I48.1 Persistent atrial fibrillation; I27.0 Primary pulmonary hypertension; E87.1 Hypo-osmolality and hyponatremia; K56.699 Other intestinal obstruction unspecified as to partial versus complete obstruction; K91.71 Accidental puncture and laceration of a digestive system organ or structure during a digestive system procedure; J98.11 Atelectasis; B96.20 Unspecified Escherichia coli [E. coli] as the cause of diseases classified elsewhere; E03.9 Hypothyroidism, unspecified; D50.9 Iron deficiency anemia, unspecified; E11.9 Type 2 diabetes mellitus without complications; I50.33 Acute on chronic diastolic (congestive) heart failure; I65.29 Occlusion and stenosis of unspecified carotid artery; K57.90 Diverticulosis of intestine, part unspecified, without perforation or abscess without bleeding; Y83.8 Other surgical procedures as the cause of abnormal reaction of the patient, or of later complication, without mention of misadventure at the time of the procedure; E83.51 Hypocalcemia; I07.1 Rheumatic tricuspid insufficiency; I25.119 Atherosclerotic heart disease of native coronary artery with unspecified angina pectoris; E87.6 Hypokalemia; R00.0 Tachycardia, unspecified; E83.39 Other disorders of phosphorus metabolism; Z87.891 Personal history of nicotine dependence; Z86.73 Personal history of transient ischemic attack (TIA), and cerebral infarction without residual deficits; Z85.3 Personal history of malignant neoplasm of breast; Z68.26 Body mass index [BMI] 26.0-26.9, adult; Z93.3 Colostomy status
CPT/HCPCS: 31500; 36415; 36430; 36600; 70450-TC; 71045-TC-FY; 71275-TC; 74018-TC-FY; 74019-TC-FY; 76942; 80048; 80053; 81003; 82040; 82042; 82150; 82272; 82803; 82945; 82962; 83540; 83550; 83605; 83615; 83735; 83880; 84100; 84157; 84439; 84443; 84478; 84484; 85025; 85027; 85044; 85379; 85610; 85730; 86850; 86900; 86901; 86922; 87040; 87070; 87075; 87086; 87102; 87116; 87186; 87205; 87206; 87210; 87899; 88108; 88305-TC; 88307-TC; 89051; 93005; 93010; 93306-TC; 93880-TC; 94002; 94640; 94660; 97116-GP; 97161-GP; 99285-25; J0131; J0637; J1644; J7030; J7620; P9038; P9047; P9058